=== PATIENT | male | born 1950 | race Caucasian/White ===

== ENCOUNTER 2017-03-16 05:52 | Day surgery (SDC) | payer MEDICARE, OTHER, SELFPAY ==
[2017-03-16] VITALS (8 sets, daily range): BP systolic 92–141; BP diastolic 38–55; PULSE 51–58; RESP 16–18; TEMP 36.6; O2SAT 97–99; BMI 28.5
--- NOTE | 2017-03-16 06:19 | PCM.HP.STD ---
Problem List (1) Family history of colon cancer Status: Acute (2) Personal history of colonic polyps Status: Acute History of Present Illness Date of Admission: 03/16/17 The patient is a 66 year old M who has a personal history of colon polyps and a family history of colon cancer. Most recent colonoscopy 2005. 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 Preserved ejection fraction. No complaints of chest pain. He is an avid runner. Past Medical History Allergies CARROTS Allergy (Unknown, Uncoded 02/07/17 10:40) Unknown Home Medications: Ambulatory Orders Medication Instructions Recorded Albuterol Inhaler [Ventolin Hfa] 2 puff INHALATION Q4H PRN PRN 09/24/13 Multivitamins,Therapeutic 1 tab PO DAILY 09/24/13 [Multivitamin] aspirin 325 mg tablet 325 mg PO QDAY 02/07/17 atorvastatin 80 mg tablet 40 mg PO QHS tab 02/07/17 cetirizine 10 mg tablet 5 mg PO QDAY PRN 02/07/17 Surgical History: - - replacement of aortiv valve Psychiatric History: No pertinent psych hx Smoking Status: Never smoker - *Family History Maternal History Items: Unknown Review of Systems Constitutional: Denies: Anorexia Eyes: Denies: Blurred vision HEENT: Denies: Difficulty Hearing Cardiovascular: Denies: Chest Pain Respiratory: Denies: Cough Gastrointestinal: Denies: Abdominal Pain Genitourinary: Denies: Dysuria Musculoskeletal: Denies: Arm Pain Psychiatric: Denies: Anxiety Endocrine: Denies: Change in Body Habitus Hematologic/ Lymphatic: Denies: Adenopathy VTE Information - Inpt Only VTE Present on Admission: No Patient Problems: Active and Suspected Problems (Last Updated 02/07/17 @ 10:35 by Shelly Carlson) Family history of colon cancer (Acute) Personal history of colonic polyps (Acute) - Physical Exam General: Alert, Oriented x3, Cooperative, No apparent distress HEENT: Atraumatic Oral: Moist Mucosa Neck: Supple Lungs: Clear to auscultation Cardiovascular: Regular rate, - - Systolic ejection murmur Abdomen: Bowel Sounds Present Extremities: No clubbing Skin: No rashes Musculoskeletal: No Tenderness to Palpation of Joints or Extremities Lymphatic: No Cervical, Supraclavicular, or Inguinal Adenopathy Neurological: Cranial nerves II-XII grossly intact Psych/Mental Status: Normal Affect Vital Signs Temp Pulse Resp BP Pulse Ox 97.8 F 53 L 18 141/55 H 99 03/16/17 06:07 03/16/17 06:07 03/16/17 06:07 03/16/17 06:07 03/16/17 06:07 Oxygen Delivery Method Room Air Weight: 166 lb 10.711 oz Body Mass Index (BMI) 28.5 Finger Stick Blood Glucose 136 Assessment/Plan Active and Suspected Problems (Last Updated 02/07/17 @ 10:35 by Shelly Carlson) Family history of colon cancer (Acute) Personal history of colonic polyps (Acute) Colonoscopy is planned. He is aware of the technique, benefits, risks, alternatives. He has had an opportunity to ask and have questions answered. We will provide ampicillin because of his cardiac valve. He is actually on every 5 year colonoscopy due to his risk history Ge Ag M.D., F.A.C.S.
--- NOTE | 2017-03-16 07:26 | OP.PCM_ITS ---
Problem List (1) Family history of colon cancer Status: Acute (2) Personal history of colonic polyps Status: Acute Report of Operation Date of Procedure: 03/16/17 Pre-Operative Diagnosis: Personal history of colon polyps. Family history of colon cancer Post-Operative Diagnosis: Extensive pancolonic diverticulosis Surgery/Procedure Performed:: Colonoscopy Description of Surgical Findings:: Timeout and informed consent was obtained. 66-year-old gentleman was taken to the endoscopy suite. Because of a prosthetic aortic valve I gave 2 g of ampicillin intravenously. He received 100 mg of Demerol and 2.5 mg of Versed is intravenous sedation. Digital rectal exam performed. Normal anal tone. Mild hemorrhoidal changes. 2+ smooth prostate. Flexible colonoscope inserted into the rectum advanced through the sigmoid colon transverse colon and was readily advanced to the ascending colon. With transabdominal pressure the scope was placed into the cecum. Bowel prep was very good. The cecum ileocecal valve was nicely achieved. The scope was carefully withdrawn from the ascending colon transverse colon descending colon and sigmoid colon. There was very extensive diverticulosis located throughout the entire colon. No additional mucosal lesions. The scope was retroflexed within the rectum. Very minimal hemorrhoidal changes noted. No active disease. Excess fluid and air was aspirated free the procedure was completed with the patient tolerating it well. Impression Pancolonic diverticulosis Recommendations for follow-up colonoscopy in 5 years based upon personal history : Polyps and family history of colon cancer Cc: Dr. KOFI Thorne Medications given at 0706. Scope inserted 0709. Cecum reached at 0713. Procedure completed at 0719. Ge Ag M.D., F.A.C.S. Type of Anesthesia:: IV Sedation
== END 2017-03-16 08:25 | disposition home or self-care (01) ==
LOC: EN 05:53 → AC 05:55
PROVIDERS: Family Provider Family Medicine; PCP Family Medicine; Visit Provider Surgery
PROC: 0DJD8ZZ Inspection of Lower Intestinal Tract, Via Natural or Artificial Opening Endoscopic (ICD-10-PCS; CPT 45378; principal; 2017-03-16 06:55)
DX: K57.30 Diverticulosis of large intestine without perforation or abscess without bleeding (principal); Z86.010 Personal history of colon polyps; Z80.0 Family history of malignant neoplasm of digestive organs; Z79.82 Long term (current) use of aspirin; Z95.2 Presence of prosthetic heart valve; R01.1 Cardiac murmur, unspecified
CPT/HCPCS: G0105; J7120

== ENCOUNTER → 2017-11-01 12:29 | Outpatient (CLI) | payer MEDICARE, OTHER, SELFPAY ==
--- NOTE | 2017-11-01 12:34 | RAD_ITS ---
STUDY: X-RAY CHEST REASON FOR EXAM: Male, 67 years old. Dyspnea with cough. TECHNIQUE: PA and lateral views of the chest. COMPARISON: None. FINDINGS: Hyperinflation. Mild increased markings at the lung bases suggestive of scarring. Decreased bronchovascular markings in the upper lobes suggestive of possible emphysematous changes. There is no demonstrated pleural abnormality. Sternal cerclage wires and vascular clips are present from a prior sternotomy and coronary artery bypass graft procedure (CABG). Normal mediastinum and isabelle. Normal visualized pulmonary arteries. There is atherosclerotic tortuosity of the aortic arch and descending thoracic aorta. There are degenerative changes of the visualized thoracic spine. Normal visualized ribs, clavicles, and shoulders. There is no demonstrated abnormality of the visualized soft tissue structures of the upper abdomen. RAD/Chest PA and Lateral IMPRESSION: Hyperinflation. Findings suggestive of emphysematous changes with probable scarring in the lower lobes. Electronically Signed: Donato Malave MD at 16:05 EDT Tel [phone], Service support ,
== END ==
PROVIDERS: Family Provider Family Medicine; PCP Family Medicine; Visit Provider Family Medicine
DX: R06.09 Other forms of dyspnea (principal)
CPT/HCPCS: 71046

== ENCOUNTER → 2017-11-12 13:48 | Outpatient (CLI) | payer MEDICARE, OTHER, SELFPAY ==
--- NOTE | 2017-11-12 13:51 | ECHOD_ITS ---
Reason For Study: Murmur Procedure This was a 2D Doppler, Color Flow transthoracic echocardiogram. Exam performed in department. Left Ventricle Normal LV size. Mild concentric left ventricular hypertrophy. Left ventricular systolic function is normal. The estimated ejection fraction is 60 %. Transmitral doppler flow suggestive of impaired relaxation of left ventricle. Transmitral diastolic flow velocities suggest mild (stage 1) diastolic dysfunction (reversed pattern). No regional wall motion abnormalities noted. Right Ventricle Normal RV size. Normal systolic function. Atria The left atrium is mildly enlarged. Normal right atrium. Mitral Valve Normal mitral valve. Mild (1+) eccentric mitral valve insufficiency. Tricuspid Valve Normal tricuspid valve. Mild (1+) tricuspid valve insufficiency. Pulmonary artery systolic pressure is 30 mmHg. Aortic Valve Peak aortic valve gradient 58 mmHg. Mean aortic valve gradient 31 mmHg. Mild-Moderate (1-2+) aortic valve insufficiency. Bioprosthetic aortic valve. Pulmonic Valve Normal pulmonic valve. Mild (1+) pulmonic valve insufficiency. Great Vessels Normal aortic root. The pulmonary artery is normal size. Normal inferior vena cava. Pericardium/Pleural No pericardial effusion. MMode/2D Measurements & Calculations LVIDd: 5.0 cm IVSd: 1.2 cm LVOT diam: 2.0 cm LVIDs: 3.1 cm LVPWd: 1.2 cm LVOT area: 3.0 cm2 RVDd: 2.8 cm FS: 37.0 % Ao root diam: 2.5 cm LAV(MOD-bp): 66.0 ml Aortic Valve Planimetry: 0.94 cm2 LA dimension: 4.2 cm LAV(MOD-bp) Indexed: 36.6 ml/m2 LAV(MOD-sp2): 65.1 ml LAV(MOD-sp4): 63.9 ml LA A4 area: 20.5 cm2 RA A4 area: 13.7 cm2 Time Measurements MV dec time: 0.26 sec Doppler Measurements & Calculations MV E max severiano: 58.2 cm/sec Lat Peak E' Severiano: 12.1 cm/sec Med Peak E' Severiano: 8.0 cm/sec MV A max severiano: 83.5 cm/sec E/E' lat: 4.8 E/E' med: 7.3 MV E/A: 0.70 MV V2 max: 86.4 cm/sec Ao V2 max: 379.8 cm/sec AI max severiano: 265.8 cm/sec MV max P.0 mmHg Ao max P.7 mmHg AI max P.4 mmHg MV V2 mean: 41.7 cm/sec Ao V2 mean: 263.2 cm/sec AI dec slope: 224.7 cm/sec2 MV mean P.86 mmHg Ao mean P.6 mmHg AI P1/2t: 346.5 msec MV V2 VTI: 26.3 cm Ao V2 VTI: 88.3 cm MVA(VTI): 3.3 cm2 LISBET(I,D): 0.97 cm2 LISBET(V,D): 0.86 cm2 LV V1 max: 108.7 cm/sec SV(LVOT): 85.7 ml PA V2 max: 118.7 cm/sec LV V1 max P.7 mmHg LV V1 mean P.5 mmHg LV V1 mean: 73.7 cm/sec LV V1 VTI: 28.5 cm TR max severiano: 254.0 cm/sec TR max P.8 mmHg Interpretation Summary Normal LV size. Mild concentric left ventricular hypertrophy. Left ventricular systolic function is normal. The estimated ejection fraction is 60 %. Transmitral diastolic flow velocities suggest mild (stage 1) diastolic dysfunction (reversed pattern). Bioprosthetic aortic valve. Mean aortic valve gradient 31 mmHg. Mild-Moderate (1-2+) aortic valve insufficiency. Compared to the previous the AV is mildly worse Ordering Physician: Sameer Guzman Referring Physician: Gianni Thorne Performed By: Viviane Munoz, SHAYNA, RVT
== END ==
PROVIDERS: Family Provider Family Medicine; PCP Family Medicine; Visit Provider Internal Medicine Cardiovascular Disease
DX: R06.02 Shortness of breath (principal); R01.1 Cardiac murmur, unspecified
CPT/HCPCS: 93306

== ENCOUNTER → 2017-11-14 06:09 | Outpatient (CLI) | payer MEDICARE, OTHER, SELFPAY ==
--- NOTE | 2017-11-14 08:47 | STRESSREP_ITS ---
Stress Test Report Exercise myocardial perfusion stress test. 67-year-old man with a history of coronary artery disease and aortic valve replacement. Stress protocol: Resting EKG demonstrates normal sinus rhythm with a rate of 59 bpm incomplete left bundle branch block is noted. Resting blood pressure is 120/60 mmHg. The patient exercised according to regular Amos protocol for a total duration of 10 minutes. The patient completed 1 minute into stage IV of the Amos protocol the maximum heart rate attained was 153 bpm which was 99% of maximum predicted heart rate the maximum workload was 11.7 metabolic equivalents. Patient maintained sinus rhythm throughout the recording at rest there were no ST or T-wave changes noted suggest ischemia peak exercise upsloping ST changes were noted would not be the criteria for ischemia. No clinical angina was noted the test was terminated due to shortness of breath. The resting blood pressure is 120/60 m eters of mercury with a peak blood pressure 140/60 mmHg. Myocardial perfusion protocol. 11.3 mCi of technetium 99m sestamibi was injected at rest. Patient exercised according to regular Amos protocol for 10 minutes attaining 99% of maximum predicted heart rate and a workload of 11.7 metabolic equivalents. At peak exercise 33.2 mCi of technetium 99m sestamibi was injected stress images were obtained stress and rest images were reconstructed and compared in the short axis vertical long and horizontal long axis. Gated images were also obtained pre- Perfusion SPECT analysis: Review of the stress images demonstrate normal uptake of tracer noted in all areas of the myocardium. The resting images similarly demonstrate normal uptake of tracer noted in all areas of myocardium. No areas of reversibility are noted suggest ischemia. Gated SPECT analysis: The gated SPECT analysis is 54%. Conclusion: Normal exercise myocardial perfusion stress test at a high workload. Excellent functional capacity. Preserved ejection fraction.
== END ==
PROVIDERS: Family Provider Family Medicine; PCP Family Medicine; Visit Provider Internal Medicine Cardiovascular Disease
DX: Z95.2 Presence of prosthetic heart valve (principal); Z95.1 Presence of aortocoronary bypass graft
CPT/HCPCS: 78452; 93017; A9500; A4216

== ENCOUNTER → 2017-11-27 09:23 | Outpatient (CLI) | payer MEDICARE, OTHER, SELFPAY ==
--- NOTE | 2017-11-27 10:35 | RAD_ITS ---
STUDY: X-RAY CHEST REASON FOR EXAM: Male, 67 years old. Preoperative evaluation. Chest tightness. TECHNIQUE: Frontal and lateral views of the chest. COMPARISON: November 01, 2017 FINDINGS: There is stable mild hyperexpansion. There is no demonstrated pleural abnormality. There is cardiomegaly unchanged. There are sternotomy wires unchanged. Normal mediastinum and isabelle. Normal visualized pulmonary arteries. There is atherosclerotic calcification of the aortic arch with tortuosity. There are diffuse degenerative changes of the visualized thoracic spine. Normal visualized ribs, clavicles, and shoulders. There is no demonstrated abnormality of the visualized soft tissue structures of the upper abdomen. RAD/Chest PA and Lateral IMPRESSION: Stable cardiomegaly with hyperexpansion. No new or acute pathology. Electronically Signed: Duane Brooks MD at 14:28 EDT , Service support ,
[2017-11-27 10:59] LABS: Absolute Lymphocyte Count 1.61 X10^3/ul (0.83-4.51); Absolute Neutrophil Count 3.7 X10^3/uL (2.0-7.7); Basophil# 0.04 X10^3/uL; Basophil% 0.7 % (0-1); Eosinophil# 0.25 X10^3/uL; Eosinophils% 4.1 % (0-5); Hematocrit 40.4 % (40-54); Hemoglobin 14.2 g/dl (13.0-16.5); Lymphocyte # 1.61 X10^3/ul (4.0); Lymphocyte % 26.2 % (19-41); Mean Corp Hgb Conc 35.1 g/gl (32-36); Mean Corpuscular Hgb 30.3 pg (27.0-32.0); Mean Corpuscular Volume 86.3 fL (80-94); Mean Platelet Vol. 10.6 fl (6.2-12.0); Monocyte# 0.58 X10^3/uL; Monocyte% 9.4 % (0-10); Neutrophil # 3.65 X10^3/uL (2.7-7.7); Neutrophil % 59.4 % (47-70); Platelet Count 194 K/mm3 (150-450); RBC Distribution Width CV 13.3 % (11.6-14.6); RBC Distribution Width SD 40.8 fl (35.1-43.9); Red Blood Count 4.68 M/mm3 (4.6-6.2); White Blood Count 6.1 K/mm3 (4.4-11.0)
[2017-11-27 11:00] LABS: POSITIVE COUNT NO; POSITIVE DIFFERENTIAL NO; POSITIVE MORPHOLOGY NO
[2017-11-27 11:29] LABS: AST(SGOT) 17 U/L (15-37); Alanine Aminotransfer ALT/SGPT 25 U/L (16-61); Albumin, Serum 3.4 g/dL (3.2-5.0); Alkaline Phosphatase 79 U/L (45-117); Anion Gap 6 (5-15); BUN 21 mg/dL (7-18); BUN/Creat Ratio 19.8 RATIO (10-20); Bilirubin, Direct 0.13 mg/dL (0.00-0.30); Calcium,Total 8.5 mg/dL (8.5-10.1); Chloride 105 mmol/L (98-107); Cholesterol 146 mg/dL (200); Creatinine, Serum 1.06 mg/dL (0.70-1.30); EST Glomerular Filtration Rate 74 mL/min (>60); Est Glom Filt Rate - Afr Amer 90 mL/min (>60); Globulin 3.1 g/dL (2.2-4.2); Glucose 80 mg/dL (74-106); High Density Lipoprotein 45 mg/dL; Potassium 4.1 mmol/L (3.5-5.1); Protein, Total 6.5 g/dL (6.4-8.2); Sodium Level 140 mmol/L (136-145); Triglycerides 127 mg/dL; Very Low Density Lipoprotein 25 mg/dL (5-40)
== END ==
PROVIDERS: Family Provider Family Medicine; PCP Family Medicine; Referring Provider Internal Medicine Cardiovascular Disease; Visit Provider Internal Medicine Cardiovascular Disease
DX: I25.119 Atherosclerotic heart disease of native coronary artery with unspecified angina pectoris (principal); I34.0 Nonrheumatic mitral (valve) insufficiency; I35.1 Nonrheumatic aortic (valve) insufficiency; I35.0 Nonrheumatic aortic (valve) stenosis; I48.0 Paroxysmal atrial fibrillation; E78.5 Hyperlipidemia, unspecified; R06.00 Dyspnea, unspecified; R07.9 Chest pain, unspecified; Z95.1 Presence of aortocoronary bypass graft; Z95.2 Presence of prosthetic heart valve; R09.89 Other specified symptoms and signs involving the circulatory and respiratory systems
CPT/HCPCS: 36415; 71046; 80048; 80061; 80076; 85025

== ENCOUNTER 2017-12-03 09:57 | Day surgery (SDC) | payer MEDICARE, OTHER, SELFPAY ==
[2017-11-30 10:34] VITALS: BMI 23.6
[2017-12-03] VITALS (24 sets, daily range): BP systolic 115–169; BP diastolic 36–116; PULSE 52–73; RESP 15–20; TEMP 36.8; O2SAT 96–100; BMI 23.6
--- NOTE | 2017-12-03 12:45 | EKG12_ITS ---
Test Reason : PCI Blood Pressure : / mmHG Vent. Rate : 064 BPM Atrial Rate : 064 BPM P-R Int : 198 ms QRS Dur : 106 ms QT Int : 468 ms P-R-T Axes : 065 092 052 degrees QTc Int : 482 ms Normal sinus rhythm Prolonged QT Abnormal ECG Confirmed by JONAS FREEMAN, FREDA ([id number]), science editor LULU CRAMER ([id number]) on 12/06/2017 12:01:22 PM Referred By: Sameer Guzman Confirmed By:FREDA MCDANIEL MD
[2017-12-03 12:50] LABS: ACT Activated Clotting Time 307 sec (74-137)
[2017-12-03] MEDS: 0.9% Normal Saline 1,000 ML 75 ML IV (13:20)
[2017-12-03] MEDS: Acetaminophen 325 MG Tablet 650 MG PO ×2 (14:35→21:48)
--- NOTE | 2017-12-03 16:06 | CRPHASE1_ITS ---
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 Phase I Charge:: Level I - Education Risk Factors/Lifestyle Smoking Status: Unknown if ever smoked Hx Dyslipidemia: Yes Height: 1.63 m Weight:: 62.596 kg BMI: 23.6 Family History: Family History (Last Reviewed 11/09/17 @ 13:23 by Sameer Guzman MD) Brother CAD (coronary artery disease) Brother CAD (coronary artery disease) Brother CAD (coronary artery disease) Brother CAD (coronary artery disease) Sister Hypertension CAD (coronary artery disease) Other Colon cancer Family History: Heart Disease Phase I Education Given On:: Pax, Nutrition, Antiplatelet medication, CHF Issues Affecting Care:: None Knowledge of Condition:: Yes Learning Preferences: Verbal, Written, Audio/Visual, Demonstration Medical/Surgical History Angina:: Yes CAD:: Yes Valve Disease/Replacement:: Yes Arrhythmias:: Yes CABG: Yes PTCA:: Yes Discharge/Home/Social Eval Marital Status:
--- NOTE | 2017-12-03 16:22 | CRPH1.INSTRU ---
General Education CAD and cardiac anatomy and function:: Patient communicates acknowledgment, Needs reinforcement Explanation of diagnoses and procedures:: Patient communicates acknowledgment, Needs reinforcement Sign/Symptoms of IL:: Patient communicates acknowledgment, Needs reinforcement Antiplatelet therapy: Patient communicates acknowledgment, Needs reinforcement Proper use of NTG-SL: Patient communicates acknowledgment, Needs reinforcement Emergency procedures and activation of EMS: Patient communicates acknowledgment, Needs reinforcement Compliance of all prescribed medications: Patient communicates acknowledgment, Needs reinforcement Smoking Patient Nicotine/Smoking Risk Factors Are:: Non-smoker Recommendations Include:: Second-hand smoke recommendation Nicotine/Smoking Response Code:: Patient communicates acknowledgment, Needs reinforcement Dyslipidemia Patient Dyslipidemia Risk Factors Are:: Total Cholesterol, Triglycerides, HDL, LDL Recommendations Include:: Lipid profile provided Dyslipidemia Response Code:: Patient communicates acknowledgment, Needs reinforcement Overweight/Obesity Patient Overweight/Obesity Risk Factors Are:: Overweight = 26-29 Recommendations Include:: Weight loss of 5-10%, Reduced calorie diet, Exercise 5-7 times/week Overweight/Obesity:: Patient communicates acknowledgment, Needs reinforcement Hypertension Recommendations Include:: Maintain BP <130/85 Hypertension:: Patient communicates acknowledgment, Needs reinforcement Heart Disease Patient Heart Disease Risk Factors Are:: Family history of heart disease < 65 years old, Previous cardiac event Recommendations Include:: Educated family members of their risk, Educated family members of importance of prevention of heart disease Heart Disease Response Code:: Patient communicates acknowledgment, Needs reinforcement Diabetes Patient Diabetes Risk Factors Are:: No documented hx of diabetes Diabetes:: Not instructed Metabolic Syndrome Metabolic Syndrome Response Code:: Not instructed Sedentary Recommendations Include:: Aerobic exercise 5-7 times/week for 20-30 minutes continuously, Benefits of regular exercise, Discussed home walking program, Monitored Outpatient Cardiac Rehab Sedentary Response Code:: Patient communicates acknowledgment, Needs reinforcement Stress Patient Stress Risk Factors Are:: Patient denies stress as a risk factor Recommendations Include:: Identification of stressors, and assessment of coping skills, Stress management techniques Stress Response Code:: Patient communicates acknowledgment, Needs reinforcement
--- NOTE | 2017-12-03 20:01 | CL.D_ITS ---
Patient Name: CHLOE WILCOX Study Date: 12/03/2017 Performing: Sameer Guzman MD Ht: 64 inches 163 cm : 1950 Wt: 139.1 lbs 63 kg Age: 67 Gender: male BSA: 1.68 PROCEDURE(S) PERFORMED [id number]/COR/CABG [id number] AND/OR PTCA, SINGLE GRAFT [id number] ROOT ANGIO WITH HEART CATH CLINICAL PROFILE AND INDICATIONS Indications: Valvular Disease Heart Failure: Newly Diagnosed: Yes Stress/Imaging Stress Test w/SPECT MPI: Yes Result: NegativeStress Test with SPECT MPI: Negative Angina Classification Anginal Classification w/in 2 Weeks: CCS II CAD Presentations: Other: New onset dyspnea; Angina equivalent No Sxs, no angina. CONCLUSIONS Severe ruby vessel disease, saphenous vein graft to the left anterior descending artery which is pa tent, saphenous vein graft to right coronary artery which is patent, saphenous vein graft to left cir cumflex artery with anastomotic lesion of 75%. RECOMMENDATIONS Referred for immediate PCI Surgery consult for Valve Replacement surgery DESCRIPTION OF PROCEDURE The patient arrived to the procedure lab. The risks and benefits of the procedure as well as a full d escription of our services here and current unavailability of surgical backup were fully explained to the patient and/or their significant other prior to the catheterization. The Timeout was completed, verifying the correct patient and procedure. The patient's procedural site was prepped and draped in the usual fashion. Local anesthetic was given subcutaneously to right radial region with Lidocaine 2% . Local anesthetic was given subcutaneously to right groin region with Lidocaine 2%. Using a modified Seldinger technique, arterial access was obtained via the right radial artery, a 6Fr sheath was inse rted., arterial access was obtained via the right femoral artery, a 5Fr sheath was inserted. Left Co ronary Artery selective angiography was performed in multiple views using a 5 Fr. JL4 catheter. Saphe nous Vein graft to the LAD and om selective angiography was performed in multiple views using a 5 Fr. JL 5 catheter. Saphenous Vein graft to the PDA selective angiography was performed in multiple views using a 5 Fr. JL 5 catheter. Ascending (root) aorta selective angiography was then performed in sing le view. Ascending (root) aorta selective angiography was then performed in single view.Contrast was injected through the sheath and the Right Iliac and Femoral artery were assessed for possible closure device.The arterial sheath was pulled and a TR Band was applied for hemostasis. The arterial sheath was pulled and a Perclose closure device was deployed for hemostasis CORONARY ANGIOGRAPHY DOMINANCE: Right Dominant LEFT HEART ASSESSMENT LEFT MAIN: Mild calcification, 50 % Stenosis LEFT ANTERIOR DECENDING ARTERY: PROX LAD: is occluded CIRCUMFLEX ARTERY: OSTIAL CIRC: 80 % Stenosis MID CIRC: long 80 pct OM 1: Ostial - 60 % Stenosis OM 2: Ostial - 60 % Stenosis RIGHT CORONARY ARTERY: presumed occluded GRAFTS: Saphenous Vein graft to the Mid LAD is patent Saphenous Vein graft to the 2nd OM has a proximal anastomotic lesion of 75 % Saphenous Vein graft to the RPDA is patent VALVE FINDINGS: Aortic Valve Insufficiency: Grade 3 AORTIC ROOT: 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 Patient given 10cc IA of this solution. 12/03/2017 11:14 :14 Nipride 50 mcg IV 12/03/2017 11:02:38 Nipride 50 mcg IV 12/03/2017 11:02:38 Nitro 100 mcg IC 12/03/2017 12:23:44 Nipride 100 mcg IV 12/03/2017 12:23:56 Verapamil 2.5mg, Ntg 100mcgs, 2000 units of Heparin diluted in 23cc Heparinized saline. Patient give n 10cc IA of this solution. 12/03/2017 11:14:14 SUMMARY OF HEMODYNAMIC DATA Time AIR REST ECG 10:21:35 AO 114/51 (76) SA 11:16:08 Signed By Sameer Guzman MD On 12/03/2017 20:00:55 Sameer Guzman MD
[2017-12-03] MEDS: Atorvastatin Calcium 40 MG Tablet PO (21:48)
[2017-12-03] MEDS: TICAGRELOR 90 MG TABLET PO (21:48)
[2017-12-04] VITALS (12 sets, daily range): BP systolic 114–150; BP diastolic 38–51; PULSE 53–72; RESP 13–22; TEMP 36.7–37.1; O2SAT 94–98
[2017-12-04] MEDS: TICAGRELOR 90 MG TABLET PO (08:26)
--- NOTE | 2017-12-04 08:28 | PCM.PN.CARD ---
Subjectve: Patient seen and evaluated. Doing well with no complaints Objective: Vital Signs Temp Pulse Resp BP Pulse Ox 98.1 F 60 17 148/39 H 96 12/04/17 00:00 12/04/17 07:00 12/04/17 07:00 12/04/17 07:00 12/04/17 07:00 Oxygen Delivery Method Room Air Weight: 167 lb 1.766 oz Body Mass Index (BMI) 23.6 Finger Stick Blood Glucose 136 Intake and Output for Last 24 Hours 12/02/17 12/03/17 12/04/17 23:59 23:59 23:59 Intake Total 880 / 880 240 / 240 Balance 880 / 880 240 / 240 General: Awake, Alert, Oriented x 3 HEENT: PERRL, EOMI, Sclera Non Icteric Neck: Supple, Good ROM, No Lymph Node Enlargement Lungs: Clear to auscultation Cardiovascular: Regular Rhythm, Normal S1, Normal S2, No Murmurs, No Rubs, No Gallops Vascular: No Carotid Bruits, Normal Femoral Pulses, Normal Radial Pulses, Normal Dorsalis Pedal Pulse, Normal Posterior Tibial Pulses Abdomen: Bowel Sounds Present, Soft, Non Tender, No HSM, No Organomegaly Extremities: No Cyanosis, No Clubbing, No edema Neurological: No Focal Motor or Sensory Deficit Rhythm: EKG: ECHO: Stress Test: Cardiac Cath: PCI: CT Surgery: Holter monitor: EPS: PPM: CXR: Chest CT Scan: Medical Necessity - Tobacco Use Smoking Status: Unknown if ever smoked Assessment/Plan 1. Coronary artery disease. The patient underwent cardiac catheterization yesterday which demonstrated severe [place] vessel disease, the saphenous vein graft to the right coronary artery was patent, there is saphenous vein graft to the left anterior descending artery was patent, the saphenous vein graft to the obtuse marginal branch had a 75% stenosis noted variant. The patient underwent angioplasty and stenting of the above with a drug-eluting stent. The patient will be continued on aspirin 81 mg a day Continue Brilinta 90 mg twice a day. Continue other medications. Patient will be discharged for outpatient follow-up. 2. Valvular heart disease Patient underwent an aortogram which demonstrated 3+ aortic regurgitation. Recommend a transvaginal echocardiogram to further characterize the above. If is noted to be severe the patient would need to undergo a valve in valve procedure. 3. Hypertension Continue antihypertensive medications. Thank you for allowing me to participate in the care of your patient. Please don't hesitate to call if any issues arise
--- NOTE | 2017-12-04 08:31 | PN.CARD_ITS ---
Subjectve: Patient seen and evaluated. Doing well with no complaints Objective: Vital Signs Temp Pulse Resp BP Pulse Ox 98.1 F 60 17 148/39 H 96 12/04/17 00:00 12/04/17 07:00 12/04/17 07:00 12/04/17 07:00 12/04/17 07:00 Oxygen Delivery Method Room Air Weight: 167 lb 1.766 oz Body Mass Index (BMI) 23.6 Finger Stick Blood Glucose 136 Intake and Output for Last 24 Hours 12/02/17 12/03/17 12/04/17 23:59 23:59 23:59 Intake Total 880 / 880 240 / 240 Balance 880 / 880 240 / 240 General: Awake, Alert, Oriented x 3 HEENT: PERRL, EOMI, Sclera Non Icteric Neck: Supple, Good ROM, No Lymph Node Enlargement Lungs: Clear to auscultation Cardiovascular: Regular Rhythm, Normal S1, Normal S2, No Murmurs, No Rubs, No Gallops Vascular: No Carotid Bruits, Normal Femoral Pulses, Normal Radial Pulses, Normal Dorsalis Pedal Pulse, Normal Posterior Tibial Pulses Abdomen: Bowel Sounds Present, Soft, Non Tender, No HSM, No Organomegaly Extremities: No Cyanosis, No Clubbing, No edema Neurological: No Focal Motor or Sensory Deficit Rhythm: EKG: ECHO: Stress Test: Cardiac Cath: PCI: CT Surgery: Holter monitor: EPS: PPM: CXR: Chest CT Scan: Medical Necessity - Tobacco Use Smoking Status: Unknown if ever smoked Assessment/Plan 1. Coronary artery disease. The patient underwent cardiac catheterization yesterday which demonstrated s evere umkumi[place] vessel disease, the saphenous vein graft to the right coronary artery was patent, there is saphenous vein graft to the left anterior descending artery was patent, the saphenous vein graft to the obtuse marginal branch had a 75% stenosis noted variant. The patient underwent angioplasty and stenting of the above with a drug-eluting stent. The patient will be continued on aspirin 81 mg a day Continue Brilinta 90 mg twice a day. Continue other medications. Patient will be discharged for outpatient follow-up. 2. Valvular heart disease * Patient underwent an aortogram which demonstrated 3+ aortic regurgitation. * Recommend a transvaginal echocardiogram to further characterize the above. If is noted to be severe the patient would need to undergo a valve in valve procedure. 3. Hypertension * Continue antihypertensive medications. * * Thank you for allowing me to participate in the care of your patient. Please don't hesitate to call if any issues arise
--- NOTE | 2017-12-04 08:33 | PCM.DC.CCA ---
Discharge Diet: Low fat/ Low Cholesterol Discharge Activity: Return to Normal Activity Call your doctor if your incision/area has: Increased Pain/ Swelling, Increased Redness, Foul Smelling Discharge, Swelling at the incision site Call your doctor if you observe: Fever of 101 or Higher Additional Dressing/Incision Instructions:: Keep the dressing (bandage) on until the next morning. You may then shower, but do not take a tub bath for 5 days after your test. It is normal to have some tenderness and discomfort at the puncture site. Sometimes bruising also occurs. However, if pain, numbness, or coldness occurs below the puncture site (in your leg, toes, arms or fingers) call your doctor at once. You may have a small, marble sized knot at the puncture site. This is normal. Do not rub it. It will go away in 4-6 weeks. Bleeding can occur from the area where the puncture was done. Blood may spurt or drip from the site. If blood spurts, apply pressure right away to stop bleeding and call 911. Although rare, bleeding into the tissue (hematoma) can also occur. If this happens, a large, firm area goose egg under the skin will appear. If any of these occur, lie down as flat as you can and have someone apply firm pressure to the cath site with a gauze pad or a clean washcloth for 10-15 minutes. Call 911 or go to the Emergency Department. Allergies/Adverse Reactions: Allergies No Known Allergies Allergy (Unverified 11/09/17 12:45) Medications to take at Discharge Albuterol Inhaler [Ventolin Hfa] 2 puff INHALATION Q4H PRN PRN 09/24/13 Multivitamins,Therapeutic [Multivitamin] 1 tab PO DAILY 09/24/13 cetirizine 10 mg tablet 5 mg PO QDAY PRN 02/07/17 nitroglycerin 0.4 mg sublingual tablet 0.4 mg SUBLINGUAL Q5-15M PRN #25 tab 09/24/17 atorvastatin 40 mg tablet 40 mg PO DAILY 11/09/17 Aspirin E.C. [Ecotrin] 81 mg PO DAILY@0800 #120 tablet 12/04/17 Ticagrelor [Brilinta] 90 mg PO BID #60 tablet 12/04/17 The following prescriptions were given: Aspirin E.C. [Ecotrin] 81 mg PO DAILY@0800 #120 tablet Ticagrelor [Brilinta] 90 mg PO BID #60 tablet Primary Care Physician: Gianni Thorne MD [Primary Care Provider] - Test Results: Test results from this visit will be discussed in further detail at your follow-up appointment, if applicable. Cardiac Rehabilitation Info Cardiac Rehabilitation Program Information: Cardiac Rehabilitation is important for patients like you who are recovering from a heart problem. Cardiac rehabilitation programs are recognized as integral to the continued care of the patient with coronary heart disease. The cardiac rehabilitation program is designed to optimize a patient's physical, psychological, and social functioning. Health healthcare facility administrator work in cardiac rehabilitation programs and assist you with getting the treatments you need to get stronger and healthier - like exercise, healthy eating habits, and medications. Cardiac rehabilitation has been show to help people with heart problems live longer and have better life enjoyment than people who do not go to cardiac rehabilitation. Please contact the Cardiac Rehabilitation Program at [facility] at in two weeks if you have not heard from them.
--- NOTE | 2017-12-04 08:36 | DCINST_ITS ---
Discharge Diet: Low fat/ Low Cholesterol Discharge Activity: Return to Normal Activity Call your doctor if your incision/area has: Increased Pain/ Swelling, Increased Redness, Foul Smelling Discharge, Swelling at the incision site Call your doctor if you observe: Fever of 101 or Higher Additional Dressing/Incision Instructions:: Keep the dressing (bandage) on until the next morning. You may then shower, but do not take a tub bath for 5 days after your test. It is normal to have some tenderness and discomfort at the puncture site. Sometimes bruising also occurs. However, if pain, numbness, or coldness occurs below the puncture site (in your leg, toes, arms or fingers) call your doctor at once. You may have a small, marble sized knot at the puncture site. This is normal. Do not rub it. It will go away in 4-6 weeks. Bleeding can occur from the area where the puncture was done. Blood may spurt or drip from the site. If blood spurts, apply pressure right away to stop bleeding and call 911. Although rare, bleeding into the tissue (hematoma) can also occur. If this happens, a large, firm area goose egg under the skin will appear. If any of these occur, lie down as flat as you can and have someone apply firm pressure to the cath site with a gauze pad or a clean washcloth for 10-15 minutes. Call 911 or go to the Emergency Department. Allergies/Adverse Reactions: Allergies No Known Allergies Allergy (Unverified 11/09/17 12:45) Medications to take at Discharge Albuterol Inhaler [Ventolin Hfa] 2 puff INHALATION Q4H PRN PRN 09/24/13 Multivitamins,Therapeutic [Multivitamin] 1 tab PO DAILY 09/24/13 cetirizine 10 mg tablet 5 mg PO QDAY PRN 02/07/17 nitroglycerin 0.4 mg sublingual tablet 0.4 mg SUBLINGUAL Q5-15M PRN #25 tab 09/24/17 atorvastatin 40 mg tablet 40 mg PO DAILY 11/09/17 Aspirin E.C. [Ecotrin] 81 mg PO DAILY@0800 #120 tablet 12/04/17 Ticagrelor [Brilinta] 90 mg PO BID #60 tablet 12/04/17 The following prescriptions were given: Aspirin E.C. [Ecotrin] 81 mg PO DAILY@0800 #120 tablet Ticagrelor [Brilinta] 90 mg PO BID #60 tablet Primary Care Physician: Gianni Thorne MD [Primary Care Provider] - Test Results: Test results from this visit will be discussed in further detail at your follow- up appointment, if applicable. Cardiac Rehabilitation Info Cardiac Rehabilitation Program Information: Cardiac Rehabilitation is important for patients like you who are recovering from a heart problem. Cardiac rehabilitation programs are recognized as integral to the continued care of the patient with coronary heart disease. The cardiac rehabilitation program is designed to optimize a patient's physical, psychological, and social functioning. Health furnace caretaker work in cardiac rehabilitation programs and assist you with getting the treatments you need to get stronger and healthier - like exercise, healthy eating habits, and medications. Cardiac rehabilitation has been show to help people with heart problems live longer and have better life enjoyment than people who do not go to cardiac rehabilitation. Please contact the Cardiac Rehabilitation Program at [facility] at in two weeks if you have not heard from them.
[2017-12-04] MEDS: Aspirin E.C. 81 MG Tablet PO (09:00)
--- NOTE | 2017-12-04 10:00 | EKG12_ITS ---
Test Reason : AM Blood Pressure : / mmHG Vent. Rate : 057 BPM Atrial Rate : 057 BPM P-R Int : 190 ms QRS Dur : 104 ms QT Int : 488 ms P-R-T Axes : 037 015 082 degrees QTc Int : 474 ms Sinus bradycardia Otherwise normal ECG When compared with ECG of 24-SEP-2013 22:11, No significant change was found Confirmed by LATASHA FREEMAN, SAMEER ([id number]), primer expeditor and drier BALBINA WILSON ([id number]) on 12/10/2017 11:03:13 AM Referred By: Sameer Guzman Confirmed By:SAMEER GUZMAN MD
--- NOTE | 2017-12-04 10:14 | CASEMGMT ---
Addendum entered by Charles De Luna 12/04/17 10:25: Correction: Home on Brilinta. Original Note: MARCY GODINEZ INITIAL REVIEW ASSESSMENT D/C PLAN: Home on Plavix Face to Face with patient for initial transition planning/care coordination assessment. MARCY GODINEZ introduced self and role at [facility]. Care providers, pharmacy, and demographics verified. PCP: Dr Gianni Thorne Preferred Pharmacy: [facility] Insurance: [facility] Prescription Benefit: [employer] Living Will/HPOA: HPOA is , Mandie DME: Denies using any DME and denies needs. Pt's plans on D/C: Wishes to return home. States is independent. Denies needs CM to follow for any further discharge planning needs that may arise. Hilary KENNEDY RN, CM
--- NOTE | 2017-12-04 11:48 | CASEMGMT ---
Addendum entered by Charles De Luna 12/04/17 15:09: Dr Guzman made aware of [id number] cost for pt for the Brilinta after the initial free 30-day supply and that pt plans to discuss alternative medication with him at his follow-up appt. Dr Guzman states his plan is to switch pt to Plavix at that time. Original Note: MARCY GODINEZ NOTE: Pt to be discharged home on Brilinta. Rx sent to pt's pharmacy [facility]. They stated they do not have any Brilinta in stock. Pt and agreeable to [facility] retail pharmacy and Rx for Brilinta transferred to [facility] Retail pharmacy. Brilinta 30-day savings card sent to [facility] Retail pharmacy. Per [facility] retail pharmacy: *1st 30 days of Brilinta will be free. Thereafter, pt's [id number] cost will be $290.17/month until deductible is met and then pt's cost per month will be $47/month. *Pt made aware and agreeable to getting the 1st 30-day prescription filled. [facility] retail pharmacy made aware and will deliver medication to pt's room. *Pt states he plans to talk to Dr Guzman at his follow-up appt for alternative medication as previously discussed with Dr Guzman. Hilary KENNEDY RN, CM
--- NOTE | 2017-12-04 22:11 | CL.I_ITS ---
Patient Name: CHLOE WILCOX Study Date: 12/03/2017 Performing: Mk Delcid MD Ht: 64 inches 163 cm : 1950 Wt: 139.1 lbs 63 kg Age: 67 Gender: male BSA: 1.68 PROCEDURE(S) PERFORMED [id number] AND/OR PTCA, SINGLE GRAFT DC11-AO ROOT ANGIO WITH HEART CATH CLINICAL PROFILE AND CO-MORBIDITIES Indications: Valvular Disease Heart Failure: Newly Diagnosed: Yes Stress/Imaging Stress Test w/SPECT MPI: Yes Result: Negative Stress Test with SPECT MPI: Negative Angina Classification Anginal Classification w/in 2 Weeks: CCS II CAD Presentations: Other: New onset dyspnea; Angina equivalent No Sxs, no angina. CONCLUSIONS Successful MELVIN SVG to OM using Synergy 3.0x12 mm RECOMMENDATIONS ASA Indefinitley Brilinta for at least 12 months Follow up with Dr. Guzman INTERVENTION INFORMATION LESION SITE: Saphaenous Vein Graft to the OM lesion location in the mid graft segment Lesion Complexity: Non-High/Non-C Pre Stenosis: 80 % Pre intervention OSCAR flow: 3 Post Stenosis: 0 % Post intervention OSCAR flow: 3 Lesion Devices: Terumo .014 Runthrough Extra Floppy 180cm straight Cordis 6 Fr JR4 100cm Guide Catheter Andrea Sci Large Vessel 3.5-5.5 Filter Wire 190cm Andrea Sci Synergy MR MELVIN 3.00x12 COMPLICATIONS No Complications PROCEDURE MEDICATIONS Fentanyl 50 mcg IV Versed 1 mg IV Oxygen: 2 L/min via nasal cannula Brilinta 180 mg PO 12/03/2017 11:51:05 Angiomax 9.8 ml's bolus 12/03/2017 12:10:52 Angiomax 22.1 ml's hr infusing 12/03/2017 12:11:23 Adenosine 50 mcg IC 12/03/2017 12:17:05 Adenosine 40 mcg IC @ 12/03/2017 12:19:05 Heparin diluted in 23cc Heparinized saline. Patient given 10cc IA of this solution. 12/03/2017 11:14 :14 Nipride 50 mcg IV 12/03/2017 11:02:38 Nipride 50 mcg IV 12/03/2017 11:02:38 Nitro 100 mcg IC 12/03/2017 12:23:44 Nipride 100 mcg IV 12/03/2017 12:23:56 Verapamil 2.5mg, Ntg 100mcgs, 2000 units of Heparin diluted in 23cc Heparinized saline. Patient give n 10cc IA of this solution. 12/03/2017 11:14:14 SUMMARY OF HEMODYNAMIC DATA Time AIR REST ECG 10:21:35 AO 114/51 (76) SA 11:16:08 Signed By Mk Delcid MD On 12/04/2017 14:45:01 Mk Delcid MD
== END 2017-12-04 12:30 | disposition home or self-care (01) ==
LOC: CLSP 09:58 → ICU 12:54
PROVIDERS: Family Provider Family Medicine; PCP Family Medicine; Referring Provider Internal Medicine Cardiovascular Disease; Visit Provider Internal Medicine Cardiovascular Disease
DX: I25.119 Atherosclerotic heart disease of native coronary artery with unspecified angina pectoris (principal); I35.0 Nonrheumatic aortic (valve) stenosis; I35.1 Nonrheumatic aortic (valve) insufficiency; I34.0 Nonrheumatic mitral (valve) insufficiency; I10 Essential (primary) hypertension; I48.0 Paroxysmal atrial fibrillation; E78.5 Hyperlipidemia, unspecified; R06.02 Shortness of breath; M19.90 Unspecified osteoarthritis, unspecified site; Z95.1 Presence of aortocoronary bypass graft; Z95.2 Presence of prosthetic heart valve; Z95.5 Presence of coronary angioplasty implant and graft; Z77.22 Contact with and (suspected) exposure to environmental tobacco smoke (acute) (chronic); Z79.82 Long term (current) use of aspirin; Z79.899 Other long term (current) drug therapy; Z86.73 Personal history of transient ischemic attack (TIA), and cerebral infarction without residual deficits
CPT/HCPCS: 85347; 92937; 93005; 93455; 93567; 99152; 99153; J7030; J7040; J7050; Q9967; C1769; C1874; C1884; C1887; C1894; C9604; J0153; J0583

== ENCOUNTER → 2017-12-24 12:06 | Outpatient (CLI) | payer MEDICARE, OTHER, SELFPAY ==
[2017-12-03 16:22] VITALS: BMI 23.6
--- NOTE | 2017-12-24 12:08 | ECHOTEE_ITS ---
Reason For Study: Assess AVR, AI Medication JORGE probe passed without difficulty. No complications were noted. Topex Topical [place] given X4 metered doses orally. Versed 2 mg given slow IVP. Fentanyl 50 mcg given slow IVP. Performed a rapid injection of agitated mix of 9 cc saline and 1cc air to assess for atrial septal defect. Left Ventricle Normal LV size. Left ventricular systolic function is normal. The estimated ejection fraction is 60 %. No regional wall motion abnormalities noted. Right Ventricle Normal RV size. Normal systolic function. The right ventricular wall motion is normal. Atria Bubble contrast study negative for right to left interatrial shunt. The left atrium is moderately enlarged. Normal right atrium. Mitral Valve Bileaflet diffuse mitral valve thickening. Tricuspid Valve Normal tricuspid valve. Aortic Valve Trisinus/trileaflet aortic valve. Moderately severe (3+) eccentric aortic valve insufficiency. Pulmonic Valve Normal pulmonic valve. Vessels Mildly dilated aortic root. Mild atherosclerosis of the aortic arch. The pulmonary artery is normal size. Pericardium No pericardial effusion. Interpretation Summary Normal LV size. Left ventricular systolic function is normal. The estimated ejection fraction is 60 %. Mildly dilated aortic root. Moderately severe (3+) eccentric aortic valve insufficiency. Ordering Physician: Sameer Guzman Referring Physician: Sameer Guzman Performed By: Myrna Sotelo, SHAYNA
== END ==
PROVIDERS: Family Provider Family Medicine; PCP Family Medicine; Referring Provider Internal Medicine Cardiovascular Disease; Visit Provider Internal Medicine Cardiovascular Disease
DX: I25.119 Atherosclerotic heart disease of native coronary artery with unspecified angina pectoris (principal); I34.0 Nonrheumatic mitral (valve) insufficiency; I48.0 Paroxysmal atrial fibrillation; I35.0 Nonrheumatic aortic (valve) stenosis; E78.5 Hyperlipidemia, unspecified; R06.00 Dyspnea, unspecified; Z95.1 Presence of aortocoronary bypass graft; Z95.2 Presence of prosthetic heart valve; Z95.5 Presence of coronary angioplasty implant and graft
CPT/HCPCS: 93312; 93320; 93325; J7040; A4216

== ENCOUNTER → 2018-04-25 18:56 | Outpatient (CLI) | payer MEDICARE, OTHER, SELFPAY ==
[2017-12-03 16:22] VITALS: BMI 23.6
== END ==
PROVIDERS: Family Provider Family Medicine; PCP Family Medicine; Referring Provider Urology; Visit Provider Urology
DX: N39.0 Urinary tract infection, site not specified (principal)
CPT/HCPCS: 87086

== ENCOUNTER → 2018-10-09 07:00 | Outpatient (CLI) | payer MEDICARE, OTHER, SELFPAY ==
[2017-12-03 16:22] VITALS: BMI 23.6
[2018-06-28 10:09] VITALS: BMI 29.2
[2018-10-09 07:49] LABS: AST(SGOT) 23 U/L (15-37); Alanine Aminotransfer ALT/SGPT 40 U/L (16-61); Albumin, Serum 3.7 g/dL (3.2-5.0); Alkaline Phosphatase 108 U/L (45-117); Bilirubin, Direct 0.23 mg/dL (0.00-0.30); Cholesterol 148 mg/dL (200); Globulin 3.3 g/dL (2.2-4.2); High Density Lipoprotein 51 mg/dL; Triglycerides 126 mg/dL; Very Low Density Lipoprotein 25 mg/dL (5-40)
[2018-10-09 07:55] LABS: PSA,Total - Annual Screen 3.17 ng/mL (0.00-4.00)
== END ==
PROVIDERS: Family Provider Family Medicine; PCP Family Medicine; Referring Provider Internal Medicine Cardiovascular Disease; Visit Provider Internal Medicine Cardiovascular Disease
DX: Z12.5 Encounter for screening for malignant neoplasm of prostate (principal); E78.5 Hyperlipidemia, unspecified
CPT/HCPCS: 36415; 80061; 80076; 84153; G0103

== ENCOUNTER → 2018-12-06 16:59 | Outpatient (CLI) | payer MEDICARE, OTHER, SELFPAY ==
[2017-12-03 16:22] VITALS: BMI 23.6
[2018-06-28 10:09] VITALS: BMI 29.2
--- NOTE | 2018-12-06 17:07 | RAD_ITS ---
HISTORY: COUGH AND SOB. HX OF OPEN HEART BYPASS AND A VALVE REPLACED PER PATIENT. EXAM: XR Chest 2 Views: COMPARISON: November 27, 2017 FINDINGS: # of images incl. paperwork: 2 Sternal wires and mediastinal clips. Lungs are clear. Heart is not enlarged. Scoliosis is similar. Prosthetic aortic valve mesh is new likely has been endovascularly placed.. Pulmonary vascularity is distinct. No effusions. RAD/Chest PA and Lateral IMPRESSION: Postop changes likely from CABG. Likely endovascularly placed aortic valve repair.. at 1052 Reported and signed by: Edmar White MD Electronically Signed: Edmar White MD at 5:27 EDT Tel , Service support ,
== END ==
PROVIDERS: Family Provider Family Medicine; PCP Family Medicine; Referring Provider Family Medicine; Visit Provider Family Medicine
DX: J40 Bronchitis, not specified as acute or chronic (principal)
CPT/HCPCS: 71046

== ENCOUNTER → 2018-12-18 06:41 | Outpatient (CLI) | payer MEDICARE, OTHER, SELFPAY ==
[2017-12-03 16:22] VITALS: BMI 23.6
[2018-06-28 10:09] VITALS: BMI 29.2
[2018-12-18 09:10] LABS: BNP,B-Type NATRIURETIC PEPTIDE 18.3 pg/mL (0-100)
== END ==
PROVIDERS: Family Provider Family Medicine; PCP Family Medicine; Referring Provider Internal Medicine Cardiovascular Disease; Visit Provider Internal Medicine Cardiovascular Disease
DX: I25.810 Atherosclerosis of coronary artery bypass graft(s) without angina pectoris (principal); I35.0 Nonrheumatic aortic (valve) stenosis; I35.1 Nonrheumatic aortic (valve) insufficiency; I48.0 Paroxysmal atrial fibrillation; E78.5 Hyperlipidemia, unspecified; R06.00 Dyspnea, unspecified; Z95.1 Presence of aortocoronary bypass graft; Z95.2 Presence of prosthetic heart valve; Z95.5 Presence of coronary angioplasty implant and graft
CPT/HCPCS: 36415; 83880

== ENCOUNTER → 2018-12-19 11:56 | Outpatient (CLI) | payer MEDICARE, OTHER, SELFPAY ==
[2017-12-03 16:22] VITALS: BMI 23.6
[2018-06-28 10:09] VITALS: BMI 29.2
[2018-12-19 14:16] LABS: D-Dimer Quantitative (DVT/PE) 0.54 FEU/ug/m (0.27-0.49)
== END ==
PROVIDERS: Family Provider Family Medicine; PCP Family Medicine; Visit Provider Family Medicine
DX: R06.00 Dyspnea, unspecified (principal)
CPT/HCPCS: 36415; 85379

== ENCOUNTER → 2018-12-19 16:59 | Outpatient (CLI) | payer MEDICARE, OTHER, SELFPAY ==
[2017-12-03 16:22] VITALS: BMI 23.6
[2018-06-28 10:09] VITALS: BMI 29.2
--- NOTE | 2018-12-19 17:02 | CT_ITS ---
STUDY: CTA CHEST REASON FOR EXAM: Male, 68 years old. Chest pressure RADIATION DOSAGE (If Supplied By Facility): CTDIvol = ( 11.9 ) mGy, DLP = ( 373.49 ) mGycm TECHNIQUE: The examination was performed with the intravenous administration of IV 100mL Isovue-370 100. Post-processing of the angiographic images was performed, with multiplanar reformation and 3D reconstruction. Individualized dose optimization techniques were used for this CT. COMPARISON: None. FINDINGS: Normal enhancement of the main pulmonary artery and right and left pulmonary arteries. Normal enhancement of the bilateral peripheral pulmonary arteries. There is no demonstrated pulmonary embolism. Mildly calcified thoracic aorta and visualized great vessels. Borderline ascending aorta measuring 4 cm in diameter There is no demonstrated aortic dissection. Normal heart and pericardium. A stent is noted at aortic valve. Normal mediastinum. Normal hilar regions. Normal visualized trachea and bronchi. The lungs are well expanded. Normal pulmonary parenchyma. Normal pleura. Normal chest wall structures. Normal osseous structures. Partially visualized left renal cyst. Colonic diverticulosis with fecal retention in the visualized colon. CT/CTA Chest W/WO Contrast IMPRESSION: No demonstrated pulmonary embolism or arterial dissection. Borderline ascending aorta. Colonic diverticulosis. Electronically Signed: Ryan Ahumada DO at 23:30 EDT Tel [phone], Service support ,
== END ==
PROVIDERS: Family Provider Family Medicine; PCP Family Medicine; Referring Provider Family Medicine; Visit Provider Family Medicine
DX: R06.02 Shortness of breath (principal)
CPT/HCPCS: 36415; 71275; 85379; Q9967

== ENCOUNTER → 2018-12-24 06:48 | Outpatient (CLI) | payer MEDICARE, OTHER, SELFPAY ==
[2017-12-03 16:22] VITALS: BMI 23.6
[2018-06-28 10:09] VITALS: BMI 29.2
--- NOTE | 2018-12-25 08:43 | PFT ---
INTRODUCTION: The patient is a 68-year-old male that presents for pulmonary function studies secondary to a diagnosis of dyspnea. Respiratory therapy reports good patient effort. Bronchodilators were used during testing. INTERPRETATION: Forced expiration spirometry demonstrates the presence of a mild large airways obstructive ventilatory defect. There was a significant response to aerosolized bronchodilators, based upon change noted in FEV1. Spirograms are of good quality and plateau gradually indicating slow emptying of the lungs. Body plethysmography was performed and reveals lung volumes to be within normal limits. Diffusing capacity by single breath CO is also within normal limits. IMPRESSION: Fully reversible mild large airways obstructive ventilatory defect, which could represent underlying asthma in the appropriate clinical scenario.
== END ==
PROVIDERS: Family Provider Family Medicine; PCP Family Medicine; Referring Provider Family Medicine; Visit Provider Family Medicine
DX: R06.00 Dyspnea, unspecified (principal)
CPT/HCPCS: 94060; 94726; 94729

== ENCOUNTER → 2019-01-27 06:43 | Outpatient (CLI) | payer MEDICARE, OTHER, SELFPAY ==
[2017-12-03 16:22] VITALS: BMI 23.6
[2019-01-07 12:43] VITALS: BMI 29.0
[2019-01-27 10:16] LABS: Hematocrit 45.8 % (40-54); Hemoglobin 15.7 g/dL (13.0-16.5); Mean Corp Hgb Conc 34.3 g/dL (32-36); Mean Corpuscular Hgb 30.1 pg (27.0-32.0); Mean Corpuscular Volume 87.7 fL (80-94); Mean Platelet Vol. 9.8 fl (6.2-12.0); Platelet Count 229 K/mm3 (150-450); RBC Distribution Width CV 12.5 % (11.6-14.6); RBC Distribution Width SD 39.8 fl (35.1-43.9); Red Blood Count 5.22 M/mm3 (4.6-6.2); White Blood Count 5.7 K/mm3 (4.4-11.0)
[2019-01-27 10:48] LABS: Anion Gap 2 (5-15); BUN 18 mg/dL (7-18); BUN/Creat Ratio 17.3 RATIO (10-20); Calcium,Total 9.5 mg/dL (8.5-10.1); Chloride 107 mmol/L (98-107); Creatinine, Serum 1.04 mg/dL (0.70-1.30); EST Glomerular Filtration Rate 76 mL/min (>60); Est Glom Filt Rate - Afr Amer 92 mL/min (>60); Glucose 81 mg/dL (74-106); Potassium 4.6 mmol/L (3.5-5.1); Sodium Level 140 mmol/L (136-145)
--- NOTE | 2019-01-27 13:00 | STRESSREP ---
Stress Test Report Exercise myocardial perfusion stress test. 68-year-old male with a history of coronary artery disease status post aortic valve replacement via TAVR. Stress protocol: Resting EKG demonstrates normal sinus rhythm with a rate of 65 bpm normal intervals are noted. The patient exercised according to regular Amos protocol for a total duration of 4 minutes and 12 seconds the maximum heart rate attained was 123 bpm which was 80% of maximum predicted heart rate the maximum workload was 6 metabolic equivalents. Patient maintained sinus rhythm throughout the recording. At rest there were no ST or T wave changes noted suggest ischemia at peak exercise is mildly downsloping ST depression noted in lead II which was equivocal for meeting criteria for ischemia. The resting blood pressure was 160/92 with a final blood pressure 138/92. At peak exercise there was approximately 1.[address] depression noted in lead II noted. The test was terminated due to chest discomfort as well as severe dyspnea. Myocardial perfusion protocol. 12.0 mCi of technetium 99m sestamibi was injected at rest. Patient exercised according to regular Amos protocol for total duration of 4 minutes and 12 seconds attaining 6 metabolic equivalents and 80% of maximum predicted heart rate. At peak exercise 35.0 mCi of technetium 99m sestamibi was injected stress images were obtained stress and rest images were reconstructed and compared in the short axis vertical and horizontal long axis. Gated images were also obtained Perfusion SPECT analysis: Review of the stress images demonstrate normal uptake of tracer noted in all areas of the myocardium. The resting images similarly demonstrate a normal uptake of tracer noted in all areas of the myocardium. No obvious reversibility areas are noted to suggest ischemia no previous infarct is noted. Gated SPECT analysis: The gated ejection fraction is noted to be 53%. Conclusion: Normal exercise myocardial perfusion stress test at a low to moderate workload. Marked chest discomfort and dyspnea noted. Preserved ejection fraction.
== END ==
PROVIDERS: Family Provider Family Medicine; PCP Family Medicine; Referring Provider Internal Medicine Cardiovascular Disease; Visit Provider Internal Medicine Cardiovascular Disease
DX: R94.39 Abnormal result of other cardiovascular function study (principal); R07.9 Chest pain, unspecified; I25.10 Atherosclerotic heart disease of native coronary artery without angina pectoris; Z95.1 Presence of aortocoronary bypass graft; Z95.2 Presence of prosthetic heart valve
CPT/HCPCS: 36415; 78452; 80048; 85027; 93017; A9500; A4216

== ENCOUNTER 2019-01-30 06:45 | Day surgery (SDC) | payer MEDICARE, OTHER, SELFPAY ==
[2017-12-03 16:22] VITALS: BMI 23.6
[2019-01-07 12:43] VITALS: BMI 29.0
[2019-01-29 08:30] VITALS: BMI 29.0
[2019-01-30] VITALS (30 sets, daily range): BP systolic 119–159; BP diastolic 69–103; PULSE 59–84; RESP 12–25; TEMP 36.7–36.8; O2SAT 96–100; BMI 29.0
[2019-01-30] MEDS: 0.9% Normal Saline 1,000 ML 80 ML IV (09:35)
--- NOTE | 2019-01-30 09:48 | CL.D_ITS ---
Patient Name: CHLOE WILCOX Study Date: 01/30/2019 Performing: Sameer Guzman MD Ht: 64 inches 163 cm : 1950 Wt: 170 lbs 77 kg Age: 68 Gender: male BSA: 1.83 PROCEDURE(S) PERFORMED DC35-BPQ/COR/CABG DC11-AO ROOT ANGIO WITH HEART CATH [id number] W OR WO PTCA, SINGLE CORONARY ARTERY CLINICAL PROFILE AND INDICATIONS Indications: Suspected CAD Heart Failure: None Stress/Imaging Date: 01/27/2019 CAD Presentations: Unstable angina. CONCLUSIONS Severe disease noted of the jena left circumflex artery. The saphenous vein graft to the circumfle x artery was noted to be occluded this was a sequential from the saphenous vein graft to the LAD and is noted to be totally occluded. The saphenous vein graft to the right coronary artery is patent RECOMMENDATIONS Referred for immediate PCI DESCRIPTION OF PROCEDURE The patient arrived to the procedure lab. The risks and benefits of the procedure as well as a full d escription of our services here and current unavailability of surgical backup were fully explained to the patient and/or their significant other prior to the catheterization. The Timeout was completed, verifying the correct patient and procedure. The patient's procedural site was prepped and draped in the usual fashion. Local anesthetic was given subcutaneously to right groin region with Lidocaine 2%. Using a modified Seldinger technique, arterial access was obtained via the right femoral artery, a 5 Fr sheath was inserted. Left Coronary Artery selective angiography was performed in multiple views u sing a 5 Fr. JL4 catheter. Saphenous Vein graft to the RCA selective angiography was performed in mul tiple views using a 5 Fr. AR MOD catheter. Saphenous Vein graft to the LAD selective angiography was performed in multiple views using a 5 Fr. AR MOD catheter. Ascending (root) aorta selective angiography was then performed in single view. Ascending (root) aorta selective angiography was then performed in single view.Contrast was injected through the sheath and the Right Iliac and F emoral artery were assessed for possible closure device.The arterial sheath was sutured in place and capped CORONARY ANGIOGRAPHY DOMINANCE: Right Dominant LEFT MAIN: Moderate calcification LEFT ANTERIOR DESCENDING ARTERY: PROX LAD: is occluded CIRCUMFLEX ARTERY: PROX CIRC: The proximal circumflex artery had an eccentric 80% calcified lesion giving off 3 small si de branches and then 3 further obtuse marginal branches. RIGHT CORONARY ARTERY: is occluded GRAFTS: Saphenous Vein graft to the Mid LAD Patent with a proximal 50 to 60% stenotic lesion the distal left anterior descending artery appears to have mild disease Saphenous Vein graft to the RPDA is patent Saphenous Vein graft to the Mid CIRC This was previously stented and is noted to be totally occluded AORTIC ROOT: Atherosclerotic COMPLICATIONS No Complications PROCEDURE MEDICATIONS Versed 1 mg IV Versed 1 mg IV Oxygen: 2 L/min via nasal cannula Brilinta 180 mg PO @ 01/30/2019 09:06:25 Heparin 6000 unit(s) IV 01/30/2019 08:44:56 SUMMARY OF HEMODYNAMIC DATA Time AIR REST ECG 07:03:10 AO 126/67 (92) SA 08:16:49 Signed By Sameer Guzman MD On 01/30/2019 09:47:28 Sameer Guzman MD
--- NOTE | 2019-01-30 10:45 | EKG12_ITS ---
Test Reason : AM EKG Blood Pressure : / mmHG Vent. Rate : 063 BPM Atrial Rate : 063 BPM P-R Int : 192 ms QRS Dur : 096 ms QT Int : 466 ms P-R-T Axes : 044 012 099 degrees QTc Int : 476 ms Normal sinus rhythm T wave abnormality, consider lateral ischemia Prolonged QT Septal PA, age undetermined, cannot be excluded Abnormal ECG Confirmed by JONAS FREEMAN, FREDA ([id number]), news videotape editor TALON PIMENTEL ([id number]) on 02/05/2019 1:14:00 PM Referred By: Sameer Guzman Confirmed By:FREDA MCDANIEL MD
[2019-01-30 10:51] LABS: ACT Activated Clotting Time 186 sec (74-137)
[2019-01-30 11:46] LABS: ACT Activated Clotting Time 158 sec (74-137)
--- NOTE | 2019-01-30 18:46 | CL.I_ITS ---
Patient Name: CHLOE WILCOX Study Date: 01/30/2019 Performing: Dereje Nicholson MD Ht: 64 inches 163 cm : 1950 Wt: 170 lbs 77 kg Age: 68 Gender: male BSA: 1.83 PROCEDURE(S) PERFORMED DC11-AO ROOT ANGIO WITH HEART CATH [id number] W OR WO PTCA, SINGLE CORONARY ARTERY CLINICAL PROFILE AND CO-MORBIDITIES Indications: Suspected CAD Heart Failure: None Stress/Imaging Date: 01/27/2019 CAD Presentations: Unstable angina. CONCLUSIONS Successful PCI of pLCx and distal LM with MELVIN RECOMMENDATIONS ASA Indefinitley Brilinta for at least 12 months DESCRIPTION OF PROCEDURE The patient arrived to the procedure lab. The risks and benefits of the procedure as well as a full d escription of our services here and current unavailability of surgical backup were fully explained to the patient and/or their significant other prior to the catheterization. The Timeout was completed, verifying the correct patient and procedure. The patient's procedural site was prepped and draped in the usual fashion. Local anesthetic was given subcutaneously to right groin region with Lidocaine 2% Using a modified Seldinger technique,arterial access was obtained via the right femoral artery, a 5Fr sheath was inserted. Left Coronary Artery selective angiography was performed in multiple views usin g a 5 Fr. JL4 catheter. Saphenous Vein graft to the RCA selective angiography was performed in multip le views using a 5 Fr. AR MOD catheter. Saphenous Vein graft to the LAD selective angiography was per formed in multiple views using a 5 Fr. AR MOD catheter. Ascending (root) aorta selective angiography was then performed in single view. Ascending (root) aorta selective angiography was then performed in single view.The images were reviewed and options discussed. A decision was then made to proceed with an Intervention, IVUS or other adjunct procedure. Arterial sheath was exchanged for a 6 Fr Sheath. XB 3.0 Guide catheter was inserted and engaged i nto the LCA. BMW Brussels Guide wire was advanced to the Circumflex. Emerge 2.5 x 12 Balloon cathete r was inserted. Balloon catheter was advanced across lesion in the circumflex, ostial. PTCA balloon i nflated at 6 atms for 19 secs. PTCA balloon inflated at 10 atms for 11 secs. Synergy 3.0 x 24 Drug El uting stent was inserted. Drug Eluting stent was advanced across the lesion in the circumflex, ostial . Contrast was injected through the sheath and the Right Iliac and Femoral artery were assessed for p ossible closure device. The arterial sheath was sutured in place and capped INTERVENTION INFORMATION LESION SITE: Circumflex (Ostial) Lesion Complexity: High/C, chronic total occlusion: No, lesion at bifurcation: No, thrombus present: No, lesion length: 22 mm, culprit lesion: Yes, Previously treated lesion: No Pre Stenosis: 90 % Pre intervention OSCAR flow: 3 PROCEDURE: Drug Eluting Stent with pre dilatation. Post Stenosis: 0 % Post intervention OSCAR flow: 3 Lesion Devices: Cardinal 6 Fr XB3.0 100cm Guide Catheter Horton .014 BMW Brussels Straight 190cm Andrea Sci EMERGE MR 2.50x12 BALLOON Andrea Sci Synergy MR MELVIN 3.00x24 COMPLICATIONS No Complications PROCEDURE MEDICATIONS Versed 1 mg IV Versed 1 mg IV Oxygen: 2 L/min via nasal cannula Brilinta 180 mg PO @ 01/30/2019 09:06:25 Heparin 6000 unit(s) IV 01/30/2019 08:44:56 SUMMARY OF HEMODYNAMIC DATA Time AIR REST ECG 07:03:10 AO 126/67 (92) SA 08:16:49 Signed By Dereje Nicholson MD On 01/30/2019 18:45:52 Dereje Nicholson MD
--- NOTE | 2019-01-30 20:05 | NURSING ---
Pt walked on unit w/SBA, gait steady; no c/o pain, cath site intact.
[2019-01-30] MEDS: TICAGRELOR 90 MG TABLET PO (21:41)
[2019-01-30] MEDS: Atorvastatin Calcium 80 MG Tablet PO (21:41)
[2019-01-31] VITALS (17 sets, daily range): BP systolic 102–136; BP diastolic 59–106; PULSE 61–79; RESP 12–23; TEMP 36.6–36.7; O2SAT 96–100; BMI 28.8
[2019-01-31 05:27] LABS: Hematocrit 42.2 % (40-54); Hemoglobin 14.5 g/dL (13.0-16.5); Mean Corp Hgb Conc 34.4 g/dL (32-36); Mean Corpuscular Hgb 29.5 pg (27.0-32.0); Mean Corpuscular Volume 85.8 fL (80-94); Mean Platelet Vol. 9.5 fl (6.2-12.0); Platelet Count 213 K/mm3 (150-450); RBC Distribution Width CV 12.5 % (11.6-14.6); RBC Distribution Width SD 38.8 fl (35.1-43.9); Red Blood Count 4.92 M/mm3 (4.6-6.2); White Blood Count 6.2 K/mm3 (4.4-11.0)
[2019-01-31 05:54] LABS: ALB/GLOB Ratio 1.1 RATIO (0.9-2.4); AST(SGOT) 19 U/L (15-37); Alanine Aminotransfer ALT/SGPT 29 U/L (16-61); Albumin, Serum 3.2 g/dL (3.2-5.0); Alkaline Phosphatase 101 U/L (45-117); Anion Gap 6 (5-15); BUN 20 mg/dL (7-18); BUN/Creat Ratio 19.6 RATIO (10-20); Calcium,Total 8.3 mg/dL (8.5-10.1); Chloride 108 mmol/L (98-107); Creatinine, Serum 1.02 mg/dL (0.70-1.30); EST Glomerular Filtration Rate 77 mL/min (>60); Est Glom Filt Rate - Afr Amer 94 mL/min (>60); Estimated Creatinine Clearance 58.85 ml/min; Globulin 2.9 g/dL (2.2-4.2); Glucose 88 mg/dL (74-106); Protein, Total 6.1 g/dL (6.4-8.2); Sodium Level 141 mmol/L (136-145)
[2019-01-31] MEDS: Aspirin E.C. 81 MG Tablet PO (08:32)
[2019-01-31] MEDS: Multivitamins,Therapeutic Tablet 1 TABLET PO (08:32)
[2019-01-31] MEDS: TICAGRELOR 90 MG TABLET PO (08:32)
--- NOTE | 2019-01-31 10:00 | EKG12_ITS ---
Test Reason : S\P PCI Blood Pressure : / mmHG Vent. Rate : 061 BPM Atrial Rate : 061 BPM P-R Int : 204 ms QRS Dur : 096 ms QT Int : 466 ms P-R-T Axes : 039 004 112 degrees QTc Int : 469 ms Somatic/Motion Artifact Normal sinus rhythm Poor R wave progression Prolonged QT Abnormal ECG Confirmed by JONAS FREEMAN, FREDA ([id number]), television news video editor TALON PIMENTEL ([id number]) on 02/05/2019 1:16:01 PM Referred By: Sameer Guzman Confirmed By:FREDA MCDANIEL MD
--- NOTE | 2019-01-31 10:26 | DCINST_ITS ---
Discharge Diet: Low fat/ Low Cholesterol Discharge Activity: Return to Normal Activity May shower in (days): 1 Lifting Restrictions: 10 pounds and also avoid any pushing or pulling for 3 days after your test. Call your doctor if your incision/area has: Continuous Slow Oozing, Sudden Increased Bleeding, Increased Pain/ Swelling, Increased Redness, Foul Smelling Discharge, Swelling at the incision site Call your doctor if you observe: Fever of 101 or Higher, Shortness of breath, Chest pain Remove Dressing in (days):: 1 Cleanse incision/area with: Soap & Water Additional Dressing/Incision Instructions:: Keep the dressing (bandage) on until the next morning. You may then shower, but do not take a tub bath for 5 days after your test. It is normal to have some tenderness and discomfort at the puncture site. Sometimes bruising also occurs. However, if pain, numbness, or coldness occurs below the puncture site (in your leg, toes, arms or fingers) call your doctor at once. You may have a small, marble sized knot at the puncture site. This is normal. Do not rub it. It will go away in 4-6 weeks. Bleeding can occur from the area where the puncture was done. Blood may spurt or drip from the site. If blood spurts, apply pressure right away to stop bleeding and call 911. Although rare, bleeding into the tissue (hematoma) can also occur. If this happens, a large, firm area goose egg under the skin will appear. If any of these occur, lie down as flat as you can and have someone apply firm pressure to the cath site with a gauze pad or a clean washcloth for 10-15 minutes. Call 911 or go to the Emergency Department. Additional Instructions: I started you on Toprol 12.5 mg daily. You are to stop your plavix and stay on Brilinta. This is a twice a day medication. You can start light exercises on sunday ( walking like you have been). Do not start running until I see you. After you see us, you can start cardiac rehab. Allergies/Adverse Reactions: Allergies No Known Allergies Allergy (Unverified 01/07/19 12:43) Medications to take at Discharge cetirizine 10 mg tablet 5 mg PO QDAY PRN 02/07/17 nitroglycerin 0.4 mg sublingual tablet 0.4 mg SUBLINGUAL Q5-15M PRN #25 tab 09/24/17 aspirin 81 mg tablet,delayed release 81 mg PO DAILY@0800 #90 tab 12/04/17 atorvastatin 80 mg tablet 80 mg PO QHS 06/24/18 multivitamin with folic acid 400 mcg tablet 1 tab PO DAILY 01/07/19 Metoprolol(XL)Succ [Toprol Xl (Beta Bob)] 12.5 mg PO DAILY #15 tab 01/31/19 Nitroglycerin (INPATIENT USE) [Nitrostat] 0.4 mg SUBLINGUAL Q5M PRN #60 tab.subl 01/31/19 The following prescriptions were given: Nitroglycerin (INPATIENT USE) [Nitrostat] 0.4 mg SUBLINGUAL Q5M PRN #60 tab.subl PRN Reason: chest pain Transmission Status: Pending to [facility] [place] [address] Metoprolol(XL)Succ [Toprol Xl (Beta Bob)] 12.5 mg PO DAILY #15 tab Transmission Status: Pending to [facility] [place] [address] Primary Care Physician: Gianni Brooks MD [Primary Care Provider] - Test Results: Test results from this visit will be discussed in further detail at your follow- up appointment, if applicable. Please Follow Up With: Courtney Carter PA When: 02/17 at 0930 Cardiac Rehabilitation Info Cardiac Rehabilitation Program Information: Cardiac Rehabilitation is important for patients like you who are recovering from a heart problem. Cardiac rehabilitation programs are recognized as integral to the continued care of the patient with coronary heart disease. The cardiac rehabilitation program is designed to optimize a patient's physical, psychological, and social functioning. Health care administrative tech work in cardiac rehabilitation programs and assist you with getting the treatments you need to get stronger and healthier - like exercise, healthy eating habits, and medications. Cardiac rehabilitation has been show to help people with heart problems live longer and have better life enjoyment than people who do not go to cardiac rehabilitation. Please contact the Cardiac Rehabilitation Program at [facility] at in two weeks if you have not heard from them.
--- NOTE | 2019-01-31 10:36 | CRPHASE1_ITS ---
Patient Communication Former Patient:: Phase II PHII Cardiac Rehab Discussed with Patient:: Yes Guide to Cardiac Rehab Given to Patient:: Yes Cardiac Rehab Facility Choice List Given to Patient:: Yes - [facility] Box Sealing Machine Catcher:: Mara Nicholson Sessions:: 36 sessions - 3 days/wk, 12 weeks Risk Factors/Lifestyle Smoking Status: Never smoker Hx Hypertension: Yes Hx Diabetes Mellitus Type 2: No Height: 1.63 m Weight:: 76.7 kg BMI: 28.8 Stress: Work-related ETOH: No Caffeine: Yes Substance Abuse: No Family History: Family History (Last Reviewed 01/07/19 @ 15:13 by Sameer Guzman MD) Brother CAD (coronary artery disease) Brother CAD (coronary artery disease) Brother CAD (coronary artery disease) Brother CAD (coronary artery disease) Sister Hypertension CAD (coronary artery disease) Other Colon cancer Family History: High Cholesterol, Heart Disease, Hypertension Phase I Education Given On:: [place], Nutrition, Antiplatelet medication Issues Affecting Care:: None Knowledge of Condition:: Yes Hospital Course Pain Description: Pressure Pain Intensity: 8 Cardiac Cath Date:: 01/31/19 Medical/Surgical History CAD:: Yes Hypertension:: Yes Dyslipidemia:: Yes CABG: Yes PTCA:: Yes - VALUE REPLACED IN AND 2018 Discharge/Home/Social Eval Discharge Disposition: Home Cardiac Rehabilitation Info Cardiac Rehabilitation Program Information: Cardiac Rehabilitation is important for patients like you who are recovering from a heart problem. Cardiac rehabilitation programs are recognized as integral to the continued care of the patient with coronary heart disease. The cardiac rehabilitation program is designed to optimize a patient's physical, psychological, and social functioning. Health medicare biller work in cardiac rehabilitation programs and assist you with getting the treatments you need to get stronger and healthier - like exercise, healthy eating habits, and medications. Cardiac rehabilitation has been show to help people with heart problems live longer and have better life enjoyment than people who do not go to cardiac rehabilitation. Please contact the Cardiac Rehabilitation Program at [facility] at in two weeks if you have not heard from them.
--- NOTE | 2019-01-31 10:41 | CRPH1.INSTRU ---
General Education CAD and cardiac anatomy and function:: Patient communicates acknowledgment Explanation of diagnoses and procedures:: Patient communicates acknowledgment Sign/Symptoms of AK:: Not instructed Antiplatelet therapy: Not instructed Proper use of NTG-SL: Not instructed Emergency procedures and activation of EMS: Patient communicates acknowledgment Compliance of all prescribed medications: Not instructed Smoking Patient Nicotine/Smoking Risk Factors Are:: Never smoked Dyslipidemia Recommendations Include:: Lipid profile not available Overweight/Obesity Patient Overweight/Obesity Risk Factors Are:: BMI Normal [24-29 & > 65 years old] Hypertension Hypertension:: Patient communicates acknowledgment Heart Disease Patient Heart Disease Risk Factors Are:: Family history of heart disease < 65 years old, Previous cardiac event Heart Disease Response Code:: Patient communicates acknowledgment Diabetes Patient Diabetes Risk Factors Are:: No documented hx of diabetes Metabolic Syndrome Recommendations Include:: Does not meet criteria Sedentary Sedentary Response Code:: Patient communicates acknowledgment - HE WAS RUNNING WHEN HE HAD CHEST PRESSURE. Stress Patient Stress Risk Factors Are:: Patient denies stress as a risk factor
--- NOTE | 2019-01-31 13:20 | PCM.PN.CARD ---
<Courtney Carter M - Last Filed: 01/31/19 13:20> Subjectve: Patient states that he still does have some dull chest discomfort that he rates as a 1 out of 10. He notes that this is only when he thinks about it. It is not when he is involved in activities such as watching TV since he was here yesterday. Objective: Vital Signs Temp Pulse Resp BP Pulse Ox 98.1 F 66 18 136/61 H 98 01/31/19 12:00 01/31/19 12:00 01/31/19 12:00 01/31/19 12:00 01/31/19 12:00 Oxygen Delivery Method Room Air Weight: 169 lb 1.513 oz Body Mass Index (BMI) 29.0 Finger Stick Blood Glucose 136 Intake and Output for Last 24 Hours 01/29/19 01/30/19 01/31/19 23:59 23:59 23:59 Intake Total 980 / 1280 300 / 300 Output Total 900 / 1600 700 / 700 Balance 80 / -320 -400 / -400 General: Healthy Appearing, Awake, Alert, Oriented x 3, Cooperative HEENT: Atraumatic, Normocephalic Oral: Moist Mucosa Neck: Supple, Good ROM Lungs: Clear to auscultation Cardiovascular: Regular Rhythm, Normal S1, Normal S2, No Murmurs, No Rubs, No Gallops Abdomen: Bowel Sounds Present, Soft, Non Tender Extremities: No Cyanosis, No Clubbing, No edema Neurological: No Focal Motor or Sensory Deficit, CN II-XII Intact Psych/Mental Status: Appropriate, Normal Affect 01/31/19 05:05: WBC 6.2, RBC 4.92, Hgb 14.5, Hct 42.2, MCV 85.8, MCH 29.5, MCHC 34.4, Plt Count 213, MPV 9.5 01/31/19 05:05: Sodium 141, Potassium 4.0, Chloride 108 H, Carbon Dioxide 27.0, Anion Gap 6, BUN 20 H, Creatinine 1.02, Est GFR (MDRD) Af Amer 94, Est GFR (MDRD) Non-Af 77, BUN/Creatinine Ratio 19.6, Glucose 88, Calcium 8.3 L, Total Bilirubin 0.60 Rhythm: EKG: ECHO: Stress Test: Cardiac Cath:Severe disease noted of the yocha dehe left circumflex artery. The saphenous vein graft to the circumflex artery was noted to be occluded this was a sequential from the saphenous vein graft to the LAD and is noted to be totally occluded. The saphenous vein graft to the right coronary artery is patent PCI:Successful PCI of pLCx and distal LM with MELVIN CT Surgery: Holter monitor: EPS: PPM: CXR: Chest CT Scan: Medical Necessity - Tobacco Use Smoking Status: Never smoker Assessment/Plan 1. Coronary artery disease: Patient did undergo stenting to his circumflex and left main yesterday. He does note that he is still having some chest discomfort. Question if this is musculoskeletal. Feel that is likely not cardiac. Did express to patient that he should monitor this closely and let us know if this worsens. He does have PRN nitrates at home. We will start patient on a low-dose beta-jana. He will continue with his atorvastatin and aspirin. He will also continue with his Plavix. He will follow-up with us in the office in 2 weeks. <Anders Horne - Last Filed: 01/31/19 14:00> Objective: Vital Signs Temp Pulse Resp BP Pulse Ox 98.1 F 66 16 135/64 H 96 01/31/19 12:00 01/31/19 13:00 01/31/19 13:00 01/31/19 13:00 01/31/19 13:00 Oxygen Delivery Method Room Air Weight: 169 lb 1.513 oz Body Mass Index (BMI) 29.0 Finger Stick Blood Glucose 136 Intake and Output for Last 24 Hours 01/29/19 01/30/19 01/31/19 23:59 23:59 23:59 Intake Total 980 / 1280 300 / 300 Output Total 900 / 1600 700 / 700 Balance 80 / -320 -400 / -400 01/31/19 05:05: WBC 6.2, RBC 4.92, Hgb 14.5, Hct 42.2, MCV 85.8, MCH 29.5, MCHC 34.4, Plt Count 213, MPV 9.5 01/31/19 05:05: Sodium 141, Potassium 4.0, Chloride 108 H, Carbon Dioxide 27.0, Anion Gap 6, BUN 20 H, Creatinine 1.02, Est GFR (MDRD) Af Amer 94, Est GFR (MDRD) Non-Af 77, BUN/Creatinine Ratio 19.6, Glucose 88, Calcium 8.3 L, Total Bilirubin 0.60 Rhythm: EKG: ECHO: Stress Test: Cardiac Cath: PCI: CT Surgery: Holter monitor: EPS: PPM: CXR: Chest CT Scan: Assessment/Plan Addendum: Date: 01-31-19 The patient was independently evaluated and examined. At the present time the patient appears to be resting comfortably. He denies any ongoing discomfort at rest or status post ambulation. There is been no evidence of acute shortness of breath or dyspnea. There is been no symptoms of lightheadedness dizziness near syncope or syncope. His examination demonstrates his lungs to be clear. His cardiovascular examination demonstrates a regular rhythm with a normal S1 and S2 with a 2/6 systolic murmur at the lower left sternal border/LVOT area. His extremities are without obvious peripheral pitting edema. His cardiac rhythm has remained sinus rhythm. His ECG is demonstrated sinus rhythm with a septal OK pattern of indeterminate age cannot be excluded and a nonspecific T wave. At the present time he carries a diagnosis of CAD status post previous PCI status post previous CABG status post transcatheter aortic valve replacement and paroxysmal atrial fibrillation. He is now status post repeat PCI. He appears to be symptomatically and hemodynamically stable. The plan will be for continued medical therapy and outpatient cardiovascular follow-up. The above was discussed with the patient, his spouse, and BAKARI Walker. This note was generated using a voice recognition system and there may be incorrect words, spelling or punctuation that were not noted when reviewing the office note prior to saving.
== END 2019-01-31 13:50 | disposition home or self-care (01) ==
LOC: CLSP 06:45 → ICU 10:51
PROVIDERS: Specialist; Family Provider Family Medicine; PCP Family Medicine; Referring Provider Internal Medicine Cardiovascular Disease; Visit Provider Internal Medicine Cardiovascular Disease
DX: I25.110 Atherosclerotic heart disease of native coronary artery with unstable angina pectoris (principal); I25.82 Chronic total occlusion of coronary artery; I48.0 Paroxysmal atrial fibrillation; R07.89 Other chest pain; Z95.1 Presence of aortocoronary bypass graft; Z95.2 Presence of prosthetic heart valve; Z95.5 Presence of coronary angioplasty implant and graft; I35.2 Nonrheumatic aortic (valve) stenosis with insufficiency; E78.5 Hyperlipidemia, unspecified; M19.90 Unspecified osteoarthritis, unspecified site; Z79.82 Long term (current) use of aspirin; Z79.02 Long term (current) use of antithrombotics/antiplatelets; Z79.899 Other long term (current) drug therapy; Z86.73 Personal history of transient ischemic attack (TIA), and cerebral infarction without residual deficits
CPT/HCPCS: 80053; 85027; 85347; 92928; 93005; 93455; 93567; 99152; 99153; J7030; J7040; C1725; C1751; C1769; C1874; C1887; C9600; J1327; Q9967

== ENCOUNTER → 2019-02-25 07:59 | Outpatient (CLI) | payer MEDICARE, OTHER, SELFPAY ==
[2019-01-31 10:41] VITALS: BMI 28.8
[2019-02-17 09:28] VITALS: BMI 29.0
--- NOTE | 2019-02-25 08:15 | PCM.CR.HP2 ---
CR - History & Physical - General Arrival date:: 02/25/19 Arrival time:: 08:00 Date of Referral:: 01/30/19 Date of CR Evaluation:: 02/25/19 Referring Physician: DR. SAMEER PAGAN Primary Diagnosis: PCI W/CORONARY STENT - History of Present Cardiac Event Onset Date: Enter Onset Date of cardiac illnesses in Comment field below Coronary Artery Bypass Graft:: Yes - Heart valve replacement or repair:: Yes - 04/2018, 11/1995 PTCA or coronary stenting:: Yes - 01/30/2019, 11/2017 Type of Symptoms:: SHORTNESS OF BREATH, FATIGUE, LEFT ARM PAIN Interventions with present event:: HEART CATH, STRESS TEST - Medications Home Medications: Ambulatory Orders Medication Instructions Recorded cetirizine 10 mg tablet 5 mg PO QDAY PRN 02/07/17 nitroglycerin 0.4 mg sublingual 0.4 mg SUBLINGUAL Q5-15M PRN #25 09/24/17 tablet tab aspirin 81 mg tablet,delayed 81 mg PO DAILY@0800 #90 tab 12/04/17 release multivitamin with folic acid 400 1 tab PO DAILY 01/07/19 mcg tablet atorvastatin 80 mg tablet 80 mg PO QHS #90 tab 02/17/19 metoprolol succinate 25 mg 12.5 mg PO DAILY #45 tab 02/17/19 tablet,extended release 24 hr ticagrelor 90 mg tablet 90 mg PO BID #60 tab 02/17/19 - Allergies Allergies/Adverse Reactions: Allergies carrot Allergy (Verified 02/25/19 08:29) Itching NIGERIAN FOODS Adverse Reaction (Uncoded 02/25/19 08:30) Hives - Sleep Disorder Evaluation Hx of Sleep Apnea: No Do you snore loudly (louder than talking or can be heard through closed doors)?: Yes - TESTED ONCE AND WAS TOLD HE DID NOT HAVE ANY SLEEP DISORDERS Do you often feel tired/ fatigued/ sleepy during daytime?: No Has anyone observed you stop breathing during sleep?: No History of Hypertension (for STOP score): Yes STOP Results: Positive Advanced Directives - Advanced Directives Power of 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 Living Will: Yes Advance Directives Information Provided: No Advance Directives on File: No - Patient states he doses not believe they are on file here - MOLST See MOLST form: No Past Medical History - Past Medical Illness Medical History: Past Medical History (Last Updated 01/31/19 @ 10:41 by Eri Chacon) Atherosclerosis of coronary artery bypass graft without angina pectoris (Chronic) I25.810 Nonrheumatic aortic (valve) stenosis with insufficiency (Chronic) I35.2 Paroxysmal atrial fibrillation (Resolved) I48.0 Hyperlipidemia (Chronic) E78.5 Arthritis M19.90 CVA (cerebral vascular accident) Onset Date: ~2010 I63.9 Lacunar Infarct DDD (degenerative disc disease), cervical M50.30 Hemorrhoids K64.9 Personal history of colonic polyps Z86.010 Transient ischemic attack G45.9 Nonrheumatic mitral (valve) insufficiency (Inactive) I34.0 - Past Surgical History Surgical History: Past Surgical History (Last Updated 01/31/19 @ 10:41 by Eri Chacon) History of coronary artery stent placement (Resolved) Onset Date: 01/30/19 Z95.5 PCI-MELVIN-Mid SVG-OM1 w/ 3.0 x 12 mm Synergy MR Stent 12/03/17; [id number]-[id number]-Szaojw LM and Ostial LCx w/ 3.0 x 24 mm Synergy Stent 01/30/19 H/O coronary artery bypass surgery (Resolved) Onset Date: 06/23/10 Z95.1 CABG x 3- SVG-LAD, SVG-OM1, SVG-RPDA 06/23/2010 H/O aortic valve replacement (Resolved) Onset Date: 04/23/18 Z95.2 AVR 12/03/1995; TAVR 23 mm Hinds Sapin S3 valve 04/23/18 Surgical History: - - replacement of aortiv valve - Family History Summary Family History: Family History (Last Reviewed 01/07/19 @ 15:13 by Sameer Pagan MD) Brother CAD (coronary artery disease) 2nd brother CABG Brother CAD (coronary artery disease) 3rd brother PCI-Stents Brother CAD (coronary artery disease) 4 brother PCI-Stents and CABG Brother CAD (coronary artery disease) 6th brother PCI-Stents Sister Hypertension CAD (coronary artery disease) CABG age 70 Other Colon cancer Social History - Smoking History Smoking Status: Never smoker Hx Tobacco Use: No Hx Smoking Exposure: No - Alcohol Use Alcohol Usage: Yes - occasional beer now and then - Substance Abuse Hx Substance Use: No - Occupation Occupation (List type of work in comments):: Retired - Hobbies, Recreation, Social Activities Hobbies: 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 Left click = Reports ([place]) Review of Present Symptoms: Reports: Fatigue - some here and there, but not a problem to speak of., Heart Arrhythmia/Irregularities - paroxysmal Super ventricular tachycardia in 1997, Appetite - Normal. Denies: Shortness of Breath at Rest, Shortness of Breath with Exertion, Angina, Dizziness/Lightheadedness, Sleep - Normal - since hte last stent occasionally at night finds he is only sleeping a few hours and then is awakened. This is not consistent, he does have nights where he sleeps a good 6-7 hours. - Pain Is Patient Pain Free?: No Pain Location: none Pain Level: 0/10 Risk Factor Assessment - Chief Complaint Chief Complaint: PCI W/CORONARY STENTING, PREVIOUS CABG AND HEART VALVE REPLACEMENT. - Vital Signs Temperature: 98 F - 6 Respiratory Rate: 14 Pulse Ox: 96 Blood Pressure: 120/78 - Pulse Pulse Rate: 64 Pulse Rhythm: Regular - Hypertension Blood Pressure Sitting - Left Arm: 120/78 - Blood Cholesterol/Lipids HDL Cholesterol (mg/dL) Goal = less than 40 mg/dL: 51 LDL Cholesterol (mg/dL) Goal = less than 70 mg/dL: 72 Triglycerides (mg/dL) Goal = less than 150 mg/dL: 126 - Obesity Height: 5 ft 4 in Weight:: 169 lb Weight in Pounds: 169.0 lbs Weight Source: Estimated by Patient Body Mass Index (BMI): 29.0 - Physical Inactivity Physical Inactivity: Recreational activity - WALKING, PHYSICALLY ACTIVE LEFESTYLE. - Risk Stratification Risk Guidelines: Lowest Risk: Risk Factor for Smoking, Risk Factor for Dyslipidemia, Risk Factor for Diabetes, Risk Factor for Obesity, Risk Factor for Hypertension, Risk Factor for Sedentary Lifestyle, Risk Factor for Depression - For Smoking Smoking Risk Guidelines: Smoking Low Risk: None or quit greater than 6 months ago. Smoking Moderate Risk: Smoker or quit 6 months or less ago. Smoking High Risk: Smoker - For Dyslipidemia Dyslipidemia Risk Guidelines: Low Risk: Moderate Risk: High Risk: 15-25% fat 25.1-29% fat >/= 30% fat. <7% sat fat 7-9% sat fat >9% sat fat. <150 mg chol 150-299 mg chol >/= 300 mg chol. LDL <100 LDL 100-129 LDL >/= 130. Chol/HDL ratio <5.0 Chol/HDL ratio 5.0-6.0 Chol/HDL ratio >6.0. Triglycerides <100 Triglycerides 100-149 Triglycerides >/= 150 - For Diabetes Mellitus Diabetes Risk Guidelines: Diabetes Low Risk: HgA1c <6.5% and/or FBG <120. Diabetes Moderate Risk: HgA1c 6.6-7.9% and/or FBG 120-180. Diabetes High Risk: HgA1c >/= 8% and/or FBG >180 - For Obesity/Overweight Obesity/Overweight Risk Guidelines: Obesity Low Risk: BMI <25.0. Obesity Moderate Risk: BMI 25-29.9. Obesity High Risk: BMI >/= 30.0 - For Hypertension Hypertension Risk Guidelines: Hypertension Low Risk: Systolic <120 and Diastolic <80. Hypertension Moderate Risk: Systolic 120-139 and Diastolic 80-89. Hypertension High Risk: Systolic >/= 140 and Diastolic >/= 90 - For Sedentary Lifestyle Sedentary Lifestyle Risk Guidelines: Sedentary Lifestyle Low Risk: >/= 1,500 kcal/week. Sedentary Lifestyle Moderate Risk: 700-1,499 kcal/week. Sedentary Lifestyle High Risk: < 700 kcal/week - For Depression Depression Risk Guidelines: Depression Low Risk: Not clinically depressed. Depression Moderate Risk: Mildly depressed. Depression High Risk: Clinically depressed - Family History Family History: Family History (Last Reviewed 01/07/19 @ 15:13 by Sameer Pagan MD) Brother CAD (coronary artery disease) Brother CAD (coronary artery disease) Brother CAD (coronary artery disease) Brother CAD (coronary artery disease) Sister Hypertension CAD (coronary artery disease) Other Colon cancer Motivation - Motivation to Participate On a scale of 1 to 10, how prepared are you to commit to attending program?: 10 What do you see as barriers to successfully being able to complete the program?: none What do you see as the benefits of succesfully completing the program? In other words, what do you hope to get out of participating in the program?: getting back to normal activities, verify can resume regular exercise Are there issues you are dealing with that will interfere with completing the program?: none Do you have a spouse or signficant other, family or friends who will help support you to complete the program?: yes.
--- NOTE | 2019-02-25 08:22 | PCM.CR.ITP ---
General Information - General Information Admitting Diagnosis: PCI W/CORONARY STENT - Education/Goals Barriers to Learning: Vision Impairment Individual Counseling: Initial Assessment: Abnormal Cholesterol Levels, High Blood Pressure Cardiac Rehabilitation Goals: 1. Maintain the individual as the primary focus of care. 2. To improve the patient's quality of life. 3. Identification of cardiac risk factors and provide cardiac risk factor management. 4. Enhance the psychosocial status of the patient. 5. Reconditioning enough to allow the patient to resume customary activities. 6. Control symptoms of cardiac disease Scale for measuring improvement of personal goals: Enter appropriate number in Comments. 2 = Unchanged. 3 = Slightly Better. 4 = Moderate Improvement. 5 = Met my Goal Personal Goals: Initial Assessment: Improve energy level, Participate in home exercise program, Improve muscle strength and endurance, Improve diet and eating habits (eat healthier), Control risk factors (learn risk factor modification) Exercise - Initial Assessment - Visit Date of Eval: 02/25/19 Session #:: 0 - INTIAL EVALUATION - Stages of Change Stages of Change:: Action - Stress Test Date: 01/27/19 HR (bpm):: 117 MET LEVEL:: 6.0 Blood Pressure: 160/92 - Physician Prescribed Exercise Modalities: Treadmill, Rower, Airdyne Frequency (days/week): 2x/week for 18 weeks [36 sessions] Duration (Minutes):: 30-45 Intensity: 60-80% age predicted maximum heart rate reserve METs - Progression: 0.5-1.0 MET, RPE 11-14 WEEK: 3.5 Target Heart Rate:: 99-130 - Hypertension Do any of the following apply?: Yes, Medication, Diet Resting Blood Pressure:: 120/78 - Intervention Home Exercise/Activity Goal:: Moderate Exercise 30 min/day x 5 days/wk - Education Goals:: Warm-up, RPE SAYDA Scale, S/S, Safe Exercise, Self-Monitoring - Exercise Program Goals Exercise Program Goals: Aerobic Activity >30 min Nutrition - Initial Assessment - Program Goals Nutrition Program Goals: LDL <70. Total Cholesterol <200. HDL >45. Triglycerides <150. HgbA1C <7%. BMI <25 - Visit Date of Assessment:: 02/25/19 - Stages of Change Stages of Change:: Action - Lipids HDL Cholesterol (mg/dL) Goal = less than 45 mg/dL: 51 LDL Cholesterol (mg/dL) Goal = less than 70 mg/dL: 72 Triglycerides (mg/dL) Goal = less than 150 mg/dL: 126 - Diabetes Diabetes:: No - Weight Management Height: 5 ft 4 in Weight:: 169 lb Body Fat %:: 29 - Intervention Referral to dietitian:: No Referral to Diabetic Clinic:: No Will attend diet classes:: Yes - Education Gave educational materials for:: Healthy eating Tobacco - Initial Assessment - Program Goals Tobacco Program Goals: Complete smoking cessation. Attend education classes. Improve Knowledge Test score - Stage of Change Stages of Change:: Action - Learning Barriers Learning Barriers: Vision, Ready to Learn - Family Support Do you have family support?: Yes - Tobacco Use Tobacco Use: Non-smoker Do you use smokeless tobacco?: No - Intervention Smoking Cessation Referral:: No Education Schedule Given:: Yes - Education Attended class for:: Treating Heart Disease, How The Heart Works, What it means to have Heart Disease, How Coronary Artery Disease is Diagnosed, Heart Procedures, What Heart Medications Do, Risk Factors & Modifications, Living an Active Life, Nutrition, Emotions & Heart Disease, Stress Management & Relaxation, Sleep Disorders & Heart Disease Psychosocial - Initial Assess - Target Goals Target Goals: Assess presence or absence of depression. Using a valid screening tool, maximizes coping skills. Positive support system - Stages of Change Stages of Change:: Action - Psychosocial Test Tool Used:: HANDS Depression Questionnaire - Intervention PS - Interventions: Yes Attend Stress Management Classes, Yes Uses Stress Management Skills, No Referral to Mental Health, No Referral to [facility] Case Management, No Referral to Physician - Education Gave educational materials for:: Coping techniques, Signs & symptoms of depression, Stress management, Relaxation techniques - Patient/Program Goal Preventative Medication(s):: Aspirin, DOLLY inhibitor, Clopidogrel, Beta jana, Statin/lipid - PATIENT REPORTS TAKING MEDICATIONS PRESCRIBED WITHOUT ISSUES - Assistive Devices Assistive Devices:: None Fall Risk Assessed:: Yes Patient Health Questionnaire Initial Assessment 1. Little interest or pleasure in doing things: Not at all 2. Feeling down, depressed, or hopeless: Several days 3. Trouble falling or staying asleep, or sleeping too much: Nearly every day 4. Feeling tired or having little energy: Several days 5. Poor appetite or overeating: Not at all 6. Feeling bad about yourself -- or that you are a failure or have let yourself or your family down: Not at all 7. Trouble concentrating on things, such as reading the newspaper or watching television: Not at all 8. Moving or speaking so slowly that other people could have noticed. Or the opposite - being so fidgety or restless that you have been moving around a lot more than usual: Not at all 9. Thoughts that you would be better off , or of hurting yourself in some way: Not at all How difficult have these problems made it for you to do your work, take care of things at home, or get along with other people?: Somewhat difficult Total Score: 5 JOSHUA-Q SV Test - Statements CAD is a disease of the arteries in the heart: False Examples of risk factors for heart disease: True Angina is chest pain or discomfort: True The benefits of resistance training include: True Eating more meat and dairy products: False Anti-platelet medications such as aspirin are important: True The only effective way to manage stress: False An exercise warm-up slowly increases heart rate: True Prepared, processed foods usually have high sodium: True Depression is common after a heart attack: True The statin medications lower cholesterol: True To control blood pressure, lower the amount of sodium: I Don't Know If someone gets chest discomfort during walking: False Transfats are partially hydrogenated vegetable oils: True Sleep apnea that is not treated increases the risk: False To control cholesterol, one should become a vegetarian: I Don't Know Someone knows if he/she is exercising at the right level: True Diabetes cannot be prevented with exercise & health eating: I Don't Know Stress is a large risk for heart attack: True A diet that can help lower blood pressure is rich in: True - Total Score Total Correct Responses: 17 Self-Efficacy Initial Assessment We would like to know how confident you are in doing certain activities. Please select your confidence level for:: Select your confidence level for the following using the scale 1-10 where 1 is not at all confident and 10 is totally confident. Your score is the average of all 6 responses. Fatigue: How confident are you that you can keep the fatigue caused by your disease from interfering with the things you want to do? Select Number: 8 Physical Discomfort or Pain: How confident are you that you can keep the physical discomfort or pain of your disease from interfering with the things you want to do? Select Number: 8 Emotional Distress: How confident are you that you can keep the emotional distress caused by your disease from interfering with the things you want to do? Select Number: 9 Other Symptoms or Health Problems: How confident are you that you can keep other symptoms or health problems from interfering with the things you want to do? Select Number: 8 Different Tasks and Activities: How confident are you that you can do the different tasks and activities needed to manage your health condition so as to reduce your need to see a doctor? Select Number: 8 Medication: How confident are you that you can do things other than just taking medication to reduce how much your illness affects your everyday life? Select Number: 9 Total Score:: 8 Nutrition Survey - Nutrition Survey Instructions Scoring Instructions: Scoring is as follows: Yes = 1 points. No = 0 point. Patient score that is >/=12 is considered to be at potential nutritional risk and could benefit from a referral to a registered dietitian. - Nutrition Survey Initial Have you lost >10 lbs over the past 2 months without trying?: No Are you following a special diet at home for diabetes, low fat, or low salt?: No Are you interested in meeting with a dietitian for help understanding your diet?: Yes Do you eat less than 3 meals a day?: No Do you eat fatty meats (garcia, sausage, ribs, etc), fried foods, desserts, large amounts of salad dressings, margarine, butter, or cheese most days?: Yes Do you have food allergies? [Enter types in comment field]: Yes Do you eat in restaurants more than 3 times a week?: Yes Do you season food with salt, seasoning salt, or garlic salt?: No Do you used canned, boxed, frozen meals, or soups, seasoning packets?: Yes - Patient is interested in meeting with a dietitian for cardiac diet tips guidelines in addtion to his overweight/weight loss due to heavy family history of cardiac disease. Total Score:: 5
[2019-02-25 08:41] VITALS: BP 120/78; PULSE 64; RESP 14; TEMP 36.6; O2SAT 96; BMI 29.0
[2019-02-25 09:05] VITALS: BP 120/78; BP 160/92
== END ==
PROVIDERS: Family Provider Family Medicine; PCP Family Medicine; Referring Provider Internal Medicine Cardiovascular Disease; Visit Provider Internal Medicine Cardiovascular Disease
DX: E78.5 Hyperlipidemia, unspecified (principal); I25.810 Atherosclerosis of coronary artery bypass graft(s) without angina pectoris

== ENCOUNTER 2019-03-21 14:15 | Outpatient (RCR) | payer MEDICARE, OTHER, SELFPAY ==
[2019-01-31 10:41] VITALS: BMI 28.8
[2019-02-25 08:41] VITALS: BMI 29.0
== END 2019-03-21 23:59 ==
LOC: CR 14:15
PROVIDERS: Family Provider Family Medicine; PCP Family Medicine; Referring Provider Internal Medicine Cardiovascular Disease; Visit Provider Internal Medicine Cardiovascular Disease
DX: I25.810 Atherosclerosis of coronary artery bypass graft(s) without angina pectoris (principal); R07.9 Chest pain, unspecified; I35.2 Nonrheumatic aortic (valve) stenosis with insufficiency; I48.0 Paroxysmal atrial fibrillation; E78.5 Hyperlipidemia, unspecified; Z95.5 Presence of coronary angioplasty implant and graft; Z95.1 Presence of aortocoronary bypass graft; Z95.2 Presence of prosthetic heart valve
CPT/HCPCS: 93798

== ENCOUNTER 2019-04-18 14:15 | Outpatient (RCR) | payer MEDICARE, OTHER, SELFPAY ==
[2019-01-31 10:41] VITALS: BMI 28.8
[2019-02-25 08:41] VITALS: BMI 29.0
--- NOTE | 2019-03-26 11:22 | PCM.CR.ITP ---
Diagnosis - General Information Admitting Diagnosis: PCI W/CORONARY STENTING Personal Learning Style:: Audio/Visual, Written Barriers to Learning: Cognitive/Learning Impairment, Cultural/Spiritual, Decreased Motivation, Emotional/Anxiety, Hearing Impairment, Language, Low Literacy, Mental Status, No Barriers, Physical Condition/Sensory Deficit, Vision Impairment Stage of change r/t lifestyle modifications:: Action Gave educational material for:: Treating Heart Disease, Emotions & Heart Disease, Stress Management & Relaxation, Sleep Disorders & Heart Disease, How The Heart Works, What it means to have Heart Disease, How Coronary Artery Disease is Diagnosed, Heart Procedures, What Heart Medications Do, Risk Factors & Modifications, Living an Active Life, Nutrition - Education/Goals Individual Counseling: Initial Assessment: Abnormal Cholesterol Levels, High Blood Pressure Cardiac Rehabilitation Goals: 1. Maintain the individual as the primary focus of care. 2. To improve the patient's quality of life. 3. Identification of cardiac risk factors and provide cardiac risk factor management. 4. Enhance the psychosocial status of the patient. 5. Reconditioning enough to allow the patient to resume customary activities. 6. Control symptoms of cardiac disease Personal Goals: Initial Assessment: Improve energy level, Participate in home exercise program, Improve knowledge of cardiac disease, Improve muscle strength and endurance, Improve diet and eating habits (eat healthier), Control risk factors (learn risk factor modification) Scale for measuring improvement of personal goals: Enter appropriate number in Comments. 2 = Unchanged. 3 = Slightly Better. 4 = Moderate Improvement. 5 = Met my Goal - Diagnosis & Disease Process Outcomes/Goals: Pt IDs own risk factors & lifestyle modifications by Session 10, Verbalizes symptoms of angina & response by session 3., Pt independently manages Plan/Interventions: Assist Pt to ID & engage in lifestyle modification to reduce CVD risk, Instruct on individual risk factors, Review symptoms of angina & emergency actions, Review secondary diagnosis & identify educational needs. 30 day Reassessments:: Progressing - Safety Referral to Physical Therapy: No Referral to [facility] Case Management: No Fall Risk Assessed:: Yes Assistive Devices:: None Exercise - 30-day Assessment - Visit Date of Eval: 03/26/19 Session #:: 12 - Physician Prescribed Exercise Modalities: Treadmill, Rower, Airdyne, NuStep Frequency: 3x/week for 12 weeks [36 sessions] Intensity: 60-80% of age predicted maximum heart rate reserve Target Heart Rate:: 99-130 Current RPE:: 12-13 Maximum Excercise HR:: 144 Resting Blood Pressure: 112/64 Maximum Exercise Blood Pressure: 158/76 EKG Type: NSR TO SINUS TACHYCARDIA WITH A RARE PVC, PAC. - Outcomes & Goals Goals:: Verbalizes understanding of THR, RPE & goal METS by session 6, Documents in home exercise log/reports 30 min aerobic 5 day/wk by DC, Demonstrates accurate pulse taking by DC - Intervention & Plan Exercise Program Goals: Instruct on personal THR & RPE, Instruct on MET level & personal MET goal, Show patient to take own pulse /validate performance until accurate - 30-day Reassessments 30 day Reassessments:: Progressing - Physical Activity Home Exercise Physical Activity - Home Exercise: Safe Exercise, Warm-up, Self-monitoring, Cool-Down, Home Exercise > 30 min Daily, Sitting Time <3 hours/daily - Outcomes & Goals Outcomes/Goals: Demonstrates correct Warm-up/exercise Cool-Down (S3) if = 2.5 METs, Verbalizes symptoms of exercise intolerance by Session 3 (S3), Demonstrate safe equipment use (S3) & follows exercise prescrition (6) - Intervention & Plan Plan/Intervention: Instruct warm-up & cool-down if exercising at > 2 METs, Instruct on symptoms of exercise intolerance & actions to take, Instruct & monitor on saf, Assess intial functional capacity & safety risk - 30-day Reassessments 30 day Reassessments:: Progressing Nutrition - 30-Day Assessment - Program Goals Nutrition Program Goals: LDL <100 optimal. 100 - 129 Near optimal. 130 - 159 Borderline High. 160 - 189 High. Total Cholesterol <200 desirable. 200 - 239 Borderline High. >/= 240 High. HDL < 40 Low >/=60 High. Triglycerides <150 desirable. <199 optimal. VlDL 5 - 40. HgbA1C <7%. BMI <25 Patient has diagnosis of Hyperlipidemia (ICD E78)?: Yes - Visit Date of Assessment:: 03/26/19 Session #:: 12 - Cholesterol/Lipids Triglycerides (mg/dL): 126 - 10/09/2018 LDL Cholesterol (mg/dL): 72 HDL Cholesterol (mg/dL): 51 Determine presence & major risk factors that modify LDL goal: Age men > 45 years; women >/= 55 years Outcomes/Goals: Pt IDs own risk factors & lifestyle modifications by Session 10, Verbalizes symptoms of angina & response by session 3., Pt independently manages Intervention/Plan: Instruct on personal lipid levels & lipid goals/NCEP guidelines, Instruct on cholesterol - Diabetes (Other Core Measures) Diabetes Type: Not Applicable - Weight Mgt (Other Care) Not Applicable: No Height: 5 ft 4 in Weight:: 167 lb 8 oz BMI: 28.7 Diagnosis Overweight/Obesity BMI> 30% ICD-10 E66: No Diagnosis High BMI/Morbid Obesity BMI> 35% ICD-10 Z68: No Outcomes/Goals: Pt sets, maintains & shows weight loss goal & trend during rehab Intervention/Plan: Instruct on ideal BMI & set weight loss goal w/patient, Assist pt to ID & incorporate diet changes for weight loss by S9, Encourage goal of using 250-300dcal per session for weight loss 30 day Reassessments:: Progressing - Healthy Eating Habits Will attend diet classes:: Yes Outcomes/Goals:: Consume diet rich in vegs,fruits,whole grain/high fiber,fish,lean meat, Limit sat/trans fats,cholesterol & added salts & sugars Intervention/Plan:: Assess current eating habits 30-day Reassessments:: Progressing - Education Gave educational materials for:: Healthy eating Medical- 30-Day Assessment - Visit Date of Eval: 03/26/19 Session #:: 12 - Medication Compliance Preventative Medication(s):: Aspirin, Ticagrelor/P2Y12 inhibitor, Statin/lipid, Beta jana H/O mental health issues: depression, anxiety, or addiction?: No Doesn?t believe in the benefits of treatment?: No Believes medications are unnecessary or harmful?: No Has a concern about medication side effects?: No Expresses concern over the cost of medications?: No Outcomes/Goals: Verbalizes medications,desired effect & common side effects @ DC, Pt self-reports following medication regimen, Keeps card in wallet w/medications listed by DC Interventions/plans: Instruct on medication effects & side effects, Review medication list w/patient every two weeks, Instruct importance of taking meds as ordered & assist problem solving 30-day Reassessments:: Progressing - Tobacco Use Tobacco Use: Non-smoker - Hypertension Resting Blood Pressure:: 112/64 [place] [employer] Hypertension Guidelines: [place] [employer] Hypertension Guidelines. Normal BP Less than 120/80. Elevated BP 120/80. Hypertension Stage 1: BP 130-139/80-89. Hypertesnion Stage 2: BP 140 or higher/90 or higher. Hypertension Crisis: BP higher than 180/120 Peak Exercise Blood Pressure:: 158/76 Outcomes/Goals: Able to verbalize/achieve optimal blood pressure <130/80, Incorporates diet changes & exercise for blood pressure control by DC Interventions/plan: Instruct on optimal blood pressure, hypertension & medications, Instruct on effects of sodium, alcohol, stress, exercise &hypertension 30 day Reassessments:: Progressing - Tobacco Cessation Referral Smoking Cessation Referral:: No Education Schedule Given:: Yes Psychosocial - 30-Day Assess - VIsit Date of Eval: 03/26/19 Session #:: 12 Not Applicable: Yes History of previous Mental disease:: No - Target Goals Target Goals: Assess presence or absence of depression. Using a valid screening tool, maximizes coping skills. Positive support system - Psychosocial Test Tool Used:: [employer] QOL Cardiac, PHQ-9 Questionnaire phq-9 Severity: Severity. 1-4 Minimal Depression. 5-9 Mild Depression. 10-14 Moderate Depression. 15-19 Moderately Sever Depression. 20-27 Severe Depression. Rule: - Referral to Behavioral Health PS - Interventions: Yes Referral to Physician if PHQ-9 if score is 5-9:, No Referral to Behavioral Health if PHQ-9 score >9:, No Referral to [facility], No Attend Stress Management Classes - Outcomes/Goals: See list Psychosocial Outcomes/Goals:: ID's personal stressors & 2 strategies to manage stress by discharge - Intervention/Plan: See List Interventions/Plan:: Assess stressors,coping strategies & signs of derpression on admission, Instruct/assist pt to develop coping & personal stress Mgt strategies, Instruct patient to recognize signs & symptoms of depression, Instruct patient to recog - 30-day Reassessments: 30 day Reassessments:: Progressing Patient Health Questionnaire 30-Day Re-eval Assessment 1. Little interest or pleasure in doing things: Not at all 2. Feeling down, depressed, or hopeless: Several days 3. Trouble falling or staying asleep, or sleeping too much: Nearly every day 4. Feeling tired or having little energy: Not at all 5. Poor appetite or overeating: Not at all 6. Feeling bad about yourself -- or that you are a failure or have let yourself or your family down: Not at all 7. Trouble concentrating on things, such as reading the newspaper or watching television: Not at all 8. Moving or speaking so slowly that other people could have noticed. Or the opposite - being so fidgety or restless that you have been moving around a lot more than usual: Not at all 9. Thoughts that you would be better off , or of hurting yourself in some way: Not at all Total Score: 4 Self-Efficacy 30-Day Re-eval Assessment We would like to know how confident you are in doing certain activities. Please select your confidence level for:: Select your confidence level for the following using the scale 1-10 where 1 is not at all confident and 10 is totally confident. Your score is the average of all 6 responses. Fatigue: How confident are you that you can keep the fatigue caused by your disease from interfering with the things you want to do? Select Number: 8 Physical Discomfort or Pain: How confident are you that you can keep the physical discomfort or pain of your disease from interfering with the things you want to do? Select Number: 9 Emotional Distress: How confident are you that you can keep the emotional distress caused by your disease from interfering with the things you want to do? Select Number: 10 Other Symptoms or Health Problems: How confident are you that you can keep other symptoms or health problems from interfering with the things you want to do? Select Number: 8 Different Tasks and Activities: How confident are you that you can do the different tasks and activities needed to manage your health condition so as to reduce your need to see a doctor? Select Number: 8 Medication: How confident are you that you can do things other than just taking medication to reduce how much your illness affects your everyday life? Select Number: 9 Total Score:: 8
[2019-03-26 11:33] VITALS: BP 112/64; BP 158/76; BMI 28.7
== END 2019-04-19 23:59 ==
LOC: CR 14:15
PROVIDERS: Family Provider Family Medicine; PCP Family Medicine; Referring Provider Internal Medicine Cardiovascular Disease; Visit Provider Internal Medicine Cardiovascular Disease
DX: I25.810 Atherosclerosis of coronary artery bypass graft(s) without angina pectoris (principal); R07.9 Chest pain, unspecified; I35.2 Nonrheumatic aortic (valve) stenosis with insufficiency; I48.0 Paroxysmal atrial fibrillation; E78.5 Hyperlipidemia, unspecified; Z95.5 Presence of coronary angioplasty implant and graft; Z95.1 Presence of aortocoronary bypass graft; Z95.2 Presence of prosthetic heart valve
CPT/HCPCS: 93798

== ENCOUNTER 2019-05-09 14:15 | Outpatient (RCR) | payer MEDICARE, OTHER, SELFPAY ==
[2019-02-25 08:41] VITALS: BMI 29.0
[2019-03-26 11:33] VITALS: BMI 28.7
[2019-04-20 00:47] VITALS: BP 112/64; BP 158/76
--- NOTE | 2019-04-25 11:12 | PCM.CR.ITP ---
Diagnosis - General Information Admitting Diagnosis: S/P PCI w/coronary stent Personal Learning Style:: Audio/Visual, Written Barriers to Learning: No Barriers Stage of change r/t lifestyle modifications:: Action Gave educational material for:: Treating Heart Disease, Emotions & Heart Disease, Stress Management & Relaxation, Sleep Disorders & Heart Disease, How The Heart Works, What it means to have Heart Disease, How Coronary Artery Disease is Diagnosed, Heart Procedures, What Heart Medications Do, Risk Factors & Modifications, Living an Active Life, Nutrition - Education/Goals Individual Counseling: Initial Assessment: Abnormal Cholesterol Levels, High Blood Pressure, Overweight/Obesity Cardiac Rehabilitation Goals: 1. Maintain the individual as the primary focus of care. 2. To improve the patient's quality of life. 3. Identification of cardiac risk factors and provide cardiac risk factor management. 4. Enhance the psychosocial status of the patient. 5. Reconditioning enough to allow the patient to resume customary activities. 6. Control symptoms of cardiac disease Personal Goals: Initial Assessment: Improve energy level, Participate in home exercise program, Get back to work, or to resume activities faster, Improve knowledge of cardiac disease, Improve muscle strength and endurance, Improve diet and eating habits (eat healthier), Control risk factors (learn risk factor modification) Scale for measuring improvement of personal goals: Enter appropriate number in Comments. 2 = Unchanged. 3 = Slightly Better. 4 = Moderate Improvement. 5 = Met my Goal - Diagnosis & Disease Process Outcomes/Goals: Pt IDs own risk factors & lifestyle modifications by Session 10, Verbalizes symptoms of angina & response by session 3., Pt independently manages Plan/Interventions: Assist Pt to ID & engage in lifestyle modification to reduce CVD risk, Instruct on individual risk factors, Review symptoms of angina & emergency actions, Other see comment 30 day Reassessments:: Progressing 30 day Reassessments:: Progressing - Safety Referral to Physical Therapy: No Referral to [facility] Case Management: No Fall Risk Assessed:: Yes Assistive Devices:: None Exercise - 60-day Assessment - Visit Date of Eval: 04/25/19 Session #:: 25 - Physician Prescribed Exercise Modalities: Treadmill, Airdyne, NuStep Frequency: 3x/week for 12 weeks [36 sessions] Intensity: 60-80% of age predicted maximum heart rate reserve Current METSs:: 9.5 Target Heart Rate:: 99-130 Current RPE:: 12-13 Maximum Excercise HR:: 150 on Airdyne Gasp [employer] Bike Resting Blood Pressure: 108/62 Maximum Exercise Blood Pressure: 160/84 - Airdyne Bike EKG Type: NSR to sinus tachycardia without ectopy. - Outcomes & Goals Goals:: Verbalizes understanding of THR, RPE & goal METS by session 6, Documents in home exercise log/reports 30 min aerobic 5 day/wk by DC, Demonstrates accurate pulse taking by DC - Intervention & Plan Exercise Program Goals: Instruct on personal THR & RPE, Instruct on MET level & personal MET goal, Show patient to take own pulse /validate performance until accurate, Instruct on home exercise - 30-day Reassessments 30 day Reassessments:: Met - Physical Activity Home Exercise Physical Activity - Home Exercise: Safe Exercise, Warm-up, Self-monitoring, Cool-Down, Home Exercise > 30 min Daily, Sitting Time <3 hours/daily - Outcomes & Goals Outcomes/Goals: Demonstrates correct Warm-up/exercise Cool-Down (S3) if = 2.5 METs, Verbalizes symptoms of exercise intolerance by Session 3 (S3), Demonstrate safe equipment use (S3) & follows exercise prescrition (6) - Intervention & Plan Plan/Intervention: Instruct warm-up & cool-down if exercising at > 2 METs, Instruct on symptoms of exercise intolerance & actions to take, Instruct & monitor on saf, Assess intial functional capacity & safety risk - 30-day Reassessments 30 day Reassessments:: Met Nutrition - 60-Day Assessment - Program Goals Nutrition Program Goals: LDL <100 optimal. 100 - 129 Near optimal. 130 - 159 Borderline High. 160 - 189 High. Total Cholesterol <200 desirable. 200 - 239 Borderline High. >/= 240 High. HDL < 40 Low >/=60 High. Triglycerides <150 desirable. <199 optimal. VlDL 5 - 40. HgbA1C <7%. BMI <25 Patient has diagnosis of Hyperlipidemia (ICD E78)?: Yes - Visit Date of Assessment:: 04/25/19 Session #:: 25 - Cholesterol/Lipids Triglycerides (mg/dL): 126 - 10/09/2018 Total Cholesterol (mg/dL): 72 LDL Cholesterol (mg/dL): 51 Determine presence & major risk factors that modify LDL goal: Hypertension or hypertensive medication, Age men > 45 years; women >/= 55 years Outcomes/Goals: Pt IDs own risk factors & lifestyle modifications by Session 10, Verbalizes symptoms of angina & response by session 3., Pt independently manages Intervention/Plan: Instruct on personal lipid levels & lipid goals/NCEP guidelines, Instruct on cholesterol Referral to dietitian:: Yes 30-day Reassessments:: Progressing - Diabetes (Other Core Measures) Diabetes Type: Not Applicable - Weight Mgt (Other Care) Not Applicable: Yes Height: 5 ft 4 in Weight:: 169 lb BMI: 29.0 Diagnosis Overweight/Obesity BMI> 30% ICD-10 E66: No Diagnosis High BMI/Morbid Obesity BMI> 35% ICD-10 Z68: No Intervention/Plan: Instruct on ideal BMI & set weight loss goal w/patient, Assist pt to ID & incorporate diet changes for weight loss by S9, Encourage goal of using 250-300dcal per session for weight loss 30 day Reassessments:: Progressing - Healthy Eating Habits Will attend diet classes:: Yes Outcomes/Goals:: Consume diet rich in vegs,fruits,whole grain/high fiber,fish,lean meat, Limit sat/trans fats,cholesterol & added salts & sugars Intervention/Plan:: Assess current eating habits 30-day Reassessments:: Progressing - Education Gave educational materials for:: Healthy eating Medical- 60-Day Assessment - Visit Date of Eval: 04/25/19 Session #:: 25 - Medication Compliance Preventative Medication(s):: Aspirin, Ticagrelor/P2Y12 inhibitor, Statin/lipid, Beta jana H/O mental health issues: depression, anxiety, or addiction?: No Doesn?t believe in the benefits of treatment?: No Believes medications are unnecessary or harmful?: No Has a concern about medication side effects?: No Expresses concern over the cost of medications?: No Outcomes/Goals: Verbalizes medications,desired effect & common side effects @ DC, Pt self-reports following medication regimen, Keeps card in wallet w/medications listed by DC Interventions/plans: Instruct on medication effects & side effects, Review medication list w/patient every two weeks, Instruct importance of taking meds as ordered & assist problem solving 30-day Reassessments:: Progressing - Tobacco Use Tobacco Use: Non-smoker - Hypertension Hypertension Diagnosis:: Hypertension ICD-10 I10 Resting Blood Pressure:: 108/62 [place] [employer] Hypertension Guidelines: [place] [employer] Hypertension Guidelines. Normal BP Less than 120/80. Elevated BP 120/80. Hypertension Stage 1: BP 130-139/80-89. Hypertesnion Stage 2: BP 140 or higher/90 or higher. Hypertension Crisis: BP higher than 180/120 Peak Exercise Blood Pressure:: 160/84 Outcomes/Goals: Able to verbalize/achieve optimal blood pressure <130/80, Incorporates diet changes & exercise for blood pressure control by DC Interventions/plan: Instruct on optimal blood pressure, hypertension & medications, Instruct on effects of sodium, alcohol, stress, exercise &hypertension 30 day Reassessments:: Progressing - Tobacco Cessation Referral Smoking Cessation Referral:: No Individual Education/Counseling:: No Education Schedule Given:: Yes Psychosocial - 60-Day Assess - VIsit Date of Eval: 04/25/19 Session #:: 25 Not Applicable: Yes History of previous Mental disease:: No - Target Goals Target Goals: Assess presence or absence of depression. Using a valid screening tool, maximizes coping skills. Positive support system - Psychosocial Test Tool Used:: [employer] QOL Cardiac, PHQ-9 Questionnaire phq-9 Severity: Severity. 1-4 Minimal Depression. 5-9 Mild Depression. 10-14 Moderate Depression. 15-19 Moderately Sever Depression. 20-27 Severe Depression. Rule: - Referral to Behavioral Health PS - Interventions: Yes Attend Stress Management Classes, No Referral to Behavioral Health if PHQ-9 score >9:, No Referral to [facility], No Referral to Physician if PHQ-9 if score is 5-9: - Outcomes/Goals: See list Psychosocial Outcomes/Goals:: ID's personal stressors & 2 strategies to manage stress by discharge - Intervention/Plan: See List Interventions/Plan:: Assess stressors,coping strategies & signs of derpression on admission, Instruct/assist pt to develop coping & personal stress Mgt strategies, Instruct patient to recognize signs & symptoms of depression, Instruct patient to recog - 30-day Reassessments: 30 day Reassessments:: Progressing Patient Health Questionnaire 60-Day Re-eval Assessment 1. Little interest or pleasure in doing things: Not at all 2. Feeling down, depressed, or hopeless: Not at all 3. Trouble falling or staying asleep, or sleeping too much: Several days 4. Feeling tired or having little energy: Not at all 5. Poor appetite or overeating: Not at all 6. Feeling bad about yourself -- or that you are a failure or have let yourself or your family down: Not at all 7. Trouble concentrating on things, such as reading the newspaper or watching television: Not at all 8. Moving or speaking so slowly that other people could have noticed. Or the opposite - being so fidgety or restless that you have been moving around a lot more than usual: Not at all 9. Thoughts that you would be better off , or of hurting yourself in some way: Not at all Total Score: 1 Self-Efficacy 60-Day Re-eval Assessment We would like to know how confident you are in doing certain activities. Please select your confidence level for:: Select your confidence level for the following using the scale 1-10 where 1 is not at all confident and 10 is totally confident. Your score is the average of all 6 responses. Fatigue: How confident are you that you can keep the fatigue caused by your disease from interfering with the things you want to do? Select Number: 10 Physical Discomfort or Pain: How confident are you that you can keep the physical discomfort or pain of your disease from interfering with the things you want to do? Select Number: 10 Emotional Distress: How confident are you that you can keep the emotional distress caused by your disease from interfering with the things you want to do? Select Number: 10 Other Symptoms or Health Problems: How confident are you that you can keep other symptoms or health problems from interfering with the things you want to do? Select Number: 10 Different Tasks and Activities: How confident are you that you can do the different tasks and activities needed to manage your health condition so as to reduce your need to see a doctor? Select Number: 10 Medication: How confident are you that you can do things other than just taking medication to reduce how much your illness affects your everyday life? Select Number: 10 Total Score:: 10
[2019-04-25 11:23] VITALS: BP 108/62; BP 160/84; BMI 29.0
== END 2019-05-12 14:15 | disposition home or self-care (01) ==
LOC: CR 14:15
PROVIDERS: Family Provider Family Medicine; PCP Family Medicine; Referring Provider Internal Medicine Cardiovascular Disease; Visit Provider Internal Medicine Cardiovascular Disease
DX: I25.810 Atherosclerosis of coronary artery bypass graft(s) without angina pectoris (principal); R07.9 Chest pain, unspecified; I35.2 Nonrheumatic aortic (valve) stenosis with insufficiency; I48.0 Paroxysmal atrial fibrillation; E78.5 Hyperlipidemia, unspecified; Z95.5 Presence of coronary angioplasty implant and graft; Z95.1 Presence of aortocoronary bypass graft; Z95.2 Presence of prosthetic heart valve
CPT/HCPCS: 93798

== ENCOUNTER → 2019-08-15 09:33 | Outpatient (CLI) | payer MEDICARE, OTHER, SELFPAY ==
[2019-04-25 11:23] VITALS: BMI 29.0
[2019-05-07 13:05] VITALS: BMI 28.6
[2019-08-15 10:06] LABS: Absolute Lymphocyte Count 1.57 X10^3/uL (0.83-4.51); Absolute Neutrophil Count 3.5 X10^3/uL (2.0-7.7); Basophil# 0.05 X10^3/uL; Basophil% 0.8 % (0-1); Eosinophil# 0.32 X10^3/uL; Eosinophils% 5.2 % (0-5); Hematocrit 44.2 % (40-54); Hemoglobin 14.7 g/dL (13.0-16.5); Lymphocyte # 1.57 X10^3/ul (4.0); Lymphocyte % 25.7 % (19-41); Mean Corp Hgb Conc 33.3 g/dL (32-36); Mean Corpuscular Hgb 30.1 pg (27.0-32.0); Mean Corpuscular Volume 90.6 fL (80-94); Mean Platelet Vol. 9.9 fl (6.2-12.0); Monocyte# 0.64 X10^3/uL; Monocyte% 10.5 % (0-10); NRBC Flagged by Analyzer 0 % (0-5); Neutrophil # 3.53 X10^3/uL (2.7-7.7); Neutrophil % 57.6 % (47-70); Platelet Count 212 K/mm3 (150-450); RBC Distribution Width CV 13.2 % (11.6-14.6); RBC Distribution Width SD 43.2 fl (35.1-43.9); Red Blood Count 4.88 M/mm3 (4.6-6.2); White Blood Count 6.1 K/mm3 (4.4-11.0)
[2019-08-15 10:37] LABS: AST(SGOT) 24 U/L (15-37); Alanine Aminotransfer ALT/SGPT 31 U/L (16-61); Albumin, Serum 3.6 g/dL (3.2-5.0); Alkaline Phosphatase 113 U/L (45-117); Anion Gap 4 (5-15); BUN 21 mg/dL (7-18); BUN/Creat Ratio 18.9 RATIO (10-20); Calcium,Total 8.9 mg/dL (8.5-10.1); Chloride 106 mmol/L (98-107); Cholesterol 157 mg/dL (200); Creatinine, Serum 1.11 mg/dL (0.70-1.30); EST Glomerular Filtration Rate 70 mL/min (>60); Est Glom Filt Rate - Afr Amer 85 mL/min (>60); Globulin 3.6 g/dL (2.2-4.2); Glucose 94 mg/dL (74-106); High Density Lipoprotein 46 mg/dL; PSA,Total- Diagnostic 4.35 ng/mL (0.0-4.0); Potassium 4.1 mmol/L (3.5-5.1); Protein, Total 7.2 g/dL (6.4-8.2); Sodium Level 139 mmol/L (136-145); Triglycerides 144 mg/dL; Very Low Density Lipoprotein 29 mg/dL (5-40)
== END ==
PROVIDERS: PCP Family Medicine; Referring Provider Family Medicine; Visit Provider Family Medicine
DX: I25.10 Atherosclerotic heart disease of native coronary artery without angina pectoris (principal); E78.00 Pure hypercholesterolemia, unspecified; N40.0 Benign prostatic hyperplasia without lower urinary tract symptoms
CPT/HCPCS: 36415; 80053; 80061; 84153; 85025

== ENCOUNTER → 2019-12-17 07:53 | Outpatient (CLI) | payer MEDICARE, OTHER, SELFPAY ==
[2019-04-25 11:23] VITALS: BMI 29.0
[2019-11-13 15:03] VITALS: BMI 28.5
--- NOTE | 2019-12-17 07:54 | ECHOD_ITS ---
Reason For Study: Valve Replacement Eval Procedure This was a 2D Doppler, Color Flow transthoracic echocardiogram. Exam performed in department. Left Ventricle Normal LV size. Left ventricular systolic function is normal. The estimated ejection fraction is 60 %. Stage 1 diastolic dysfunction. No regional wall motion abnormalities noted. Right Ventricle Normal RV size. Normal systolic function. Atria Normal left atrium. Normal right atrium. Mitral Valve Normal mitral valve. Tricuspid Valve Normal tricuspid valve. Mild tricuspid valve insufficiency. Pulmonary artery systolic pressure is 24 mmHg. Aortic Valve Peak aortic valve gradient 16 mmHg. Mean aortic valve gradient 7 mmHg. Bioprosthetic aortic valve. Pericardium/Pleural No pericardial effusion. MMode/2D Measurements & Calculations LVIDd: 4.3 cm IVSd: 1.4 cm LVOT diam: 2.0 cm LVIDs: 2.7 cm LVPWd: 1.1 cm LVOT area: 3.1 cm2 FS: 36.0 % LA dimension: 4.3 cm LAV(MOD-bp): 53.0 ml LA A4 area: 18.1 cm2 LAV(MOD-bp) Indexed: 29.0 ml/m2 LAV(MOD-sp2): 48.6 ml LAV(MOD-sp4): 50.4 ml RA A4 area: 17.9 cm2 Time Measurements MV dec time: 0.36 sec Doppler Measurements & Calculations MV E max severiano: 53.7 cm/sec Lat Peak E' Severiano: 9.1 cm/sec Med Peak E' Severiano: 7.0 cm/sec MV A max severiano: 83.0 cm/sec E/E' lat: 5.9 E/E' med: 7.7 MV E/A: 0.65 MV V2 max: 88.3 cm/sec MV P1/2t max severiano: 68.7 cm/sec Ao V2 max: 201.3 cm/sec MV max P.1 mmHg MV P1/2t: 89.6 msec Ao max P.2 mmHg MV V2 mean: 39.4 cm/sec Ao V2 mean: 122.5 cm/sec MV mean P.76 mmHg MV dec slope: 224.6 cm/sec2 Ao mean P.3 mmHg MV V2 VTI: 27.3 cm MVA(P1/2t): 2.5 cm2 Ao V2 VTI: 38.7 cm MVA(VTI): 3.8 cm2 LISBET(I,D): 2.7 cm2 LISBET(V,D): 2.4 cm2 LV V1 max: 152.9 cm/sec SV(LVOT): 105.1 ml PA V2 max: 122.3 cm/sec LV V1 max P.4 mmHg LV V1 mean P.9 mmHg LV V1 mean: 102.0 cm/sec LV V1 VTI: 33.7 cm TR max severiano: 225.7 cm/sec TR max P.4 mmHg Interpretation Summary Normal LV size. Left ventricular systolic function is normal. The estimated ejection fraction is 60 %. Stage 1 diastolic dysfunction. Mean aortic valve gradient 7 mmHg. Ordering Physician: Sameer Guzman Referring Physician: Gianni Brooks Performed By: Kennedy Booth RCS
[2019-12-17 10:26] LABS: Hematocrit 44.7 % (40-54); Hemoglobin 14.6 g/dL (13.0-16.5); Mean Corp Hgb Conc 32.7 g/dL (32-36); Mean Corpuscular Hgb 28.9 pg (27.0-32.0); Mean Corpuscular Volume 88.5 fL (80-94); Mean Platelet Vol. 10.2 fl (6.2-12.0); Platelet Count 201 K/mm3 (150-450); RBC Distribution Width CV 13.2 % (11.6-14.6); RBC Distribution Width SD 42.6 fl (35.1-43.9); Red Blood Count 5.05 M/mm3 (4.6-6.2)
[2019-12-17 10:56] LABS: AST(SGOT) 19 U/L (15-37); Alanine Aminotransfer ALT/SGPT 27 U/L (16-61); Albumin, Serum 3.5 g/dL (3.2-5.0); Alkaline Phosphatase 103 U/L (45-117); Anion Gap 5 (5-15); BUN 19 mg/dL (7-18); BUN/Creat Ratio 17.9 RATIO (10-20); Calcium,Total 8.6 mg/dL (8.5-10.1); Chloride 105 mmol/L (98-107); Cholesterol 143 mg/dL (200); Creatinine, Serum 1.06 mg/dL (0.70-1.30); EST Glomerular Filtration Rate 74 mL/min (>60); Est Glom Filt Rate - Afr Amer 89 mL/min (>60); Globulin 3.4 g/dL (2.2-4.2); Glucose 81 mg/dL (74-106); High Density Lipoprotein 48 mg/dL; Potassium 3.9 mmol/L (3.5-5.1); Protein, Total 6.9 g/dL (6.4-8.2); Sodium Level 139 mmol/L (136-145); Triglycerides 121 mg/dL; Very Low Density Lipoprotein 24 mg/dL (5-40)
== END ==
PROVIDERS: PCP Family Medicine; Referring Provider Internal Medicine Cardiovascular Disease; Visit Provider Internal Medicine Cardiovascular Disease
DX: I25.810 Atherosclerosis of coronary artery bypass graft(s) without angina pectoris (principal); E78.00 Pure hypercholesterolemia, unspecified; Z95.1 Presence of aortocoronary bypass graft
CPT/HCPCS: 36415; 80048; 80061; 80076; 85027; 93306

== ENCOUNTER 2020-01-19 08:58 | Day surgery (SDC) | payer MEDICARE, OTHER, SELFPAY ==
[2019-04-25 11:23] VITALS: BMI 29.0
[2019-11-13 15:03] VITALS: BMI 28.5
[2020-01-09 08:45] VITALS: BMI 28.5
--- NOTE | 2020-01-09 09:00 | RAD_ITS ---
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 COMPARISON: 12/06/2018 FINDINGS: Status post median sternotomy and heart valve replacement. The lungs are clear and expanded. There is no demonstrated pleural abnormality. Normal size heart. Normal mediastinum and isabelle. Normal visualized pulmonary arteries. Normal visualized aortic arch and descending thoracic aorta. Normal visualized thoracic spine. Normal visualized ribs, clavicles, and shoulders. There is no demonstrated abnormality of the visualized soft tissue structures of the upper abdomen. RAD/Chest PA and Lateral IMPRESSION: No active disease. Electronically Signed: Monroe Cochran MD at 17:36 EST Tel , Service support ,
[2020-01-19] VITALS (20 sets, daily range): BP systolic 121–155; BP diastolic 75–92; PULSE 62–79; RESP 14–20; TEMP 36.7–36.9; O2SAT 96–100; BMI 28.5
[2020-01-19 09:12] LABS: Hematocrit 45.5 % (40-54); Hemoglobin 15.2 g/dL (13.0-16.5); Mean Corp Hgb Conc 33.4 g/dL (32-36); Mean Corpuscular Hgb 29.7 pg (27.0-32.0); Mean Platelet Vol. 9.8 fl (6.2-12.0); Platelet Count 208 K/mm3 (150-450); RBC Distribution Width CV 13.2 % (11.6-14.6); RBC Distribution Width SD 42.9 fl (35.1-43.9); Red Blood Count 5.11 M/mm3 (4.6-6.2); White Blood Count 6.9 K/mm3 (4.4-11.0)
[2020-01-19 09:25] LABS: Anion Gap 1 (5-15); BUN 18 mg/dL (7-18); BUN/Creat Ratio 16.8 RATIO (10-20); Calcium,Total 9.1 mg/dL (8.5-10.1); Chloride 108 mmol/L (98-107); Creatinine, Serum 1.07 mg/dL (0.70-1.30); EST Glomerular Filtration Rate 73 mL/min (>60); Est Glom Filt Rate - Afr Amer 88 mL/min (>60); Estimated Creatinine Clearance 55.33 ml/min; Glucose 97 mg/dL (74-106); Potassium 4.2 mmol/L (3.5-5.1); Sodium Level 139 mmol/L (136-145)
--- NOTE | 2020-01-19 10:10 | CON.PCM_ITS ---
Reason for Consult Date of Consultation: 01/19/20 Reason for Consultation: Chest discomfort History of Present Illness: The patient is a 69 year old M with a history of coronary artery disease status post coronary artery bypass surgery remotely in 2010 with a saphenous vein graft to the LAD, saphenous vein graft to the OM and saphenous vein graft to the right posterior descending artery. He also had an aortic valve replacement in 1995 and is subsequent TAVR in April 2018. He had undergone PCI with a drug-eluting stent to the mid saphenous vein graft to the obtuse marginal branch with a Synergy stent in November 2017 and a PCI to the distal left main and ostial circumflex artery which a 3.0 x 24 mm drug eluding Synergy stent in January 2019. The saphenous vein graft to the mid circumflex artery was occluded and that is why he underwent PCI of the proximal circumflex artery. He had been doing well but more recently realized that his exercise capacity had diminished further. It was therefore thought that he may be having restenosis. He also has a history of hyperlipidemia, and paroxysmal atrial fibrillation. He has not had any recent stress testing. [] Past Medical History Allergies/Adverse Reactions: Allergies carrot Allergy (Verified 05/07/19 13:04) Itching AZERI FOODS Adverse Reaction (Uncoded 02/25/19 08:30) Hives Home Medications: Ambulatory Orders Medication Instructions Recorded cetirizine 10 mg tablet 5 mg PO QDAY PRN 02/07/17 nitroglycerin 0.4 mg sublingual 0.4 mg SUBLINGUAL Q5-15M PRN #25 09/24/17 tablet tab aspirin 81 mg tablet,delayed 81 mg PO DAILY@0800 #90 tab 12/04/17 release multivitamin with folic acid 400 1 tab PO DAILY 01/07/19 mcg tablet atorvastatin 80 mg tablet 80 mg PO QHS #90 tab 02/17/19 ticagrelor 90 mg tablet 90 mg PO BID #60 tab 02/17/19 albuterol sulfate 90 mcg/actuation 1 dose INHALATION DAILY 11/13/19 aerosol inhaler Metoprolol Succinate [Toprol Xl] 12.5 mg PO DAILY 01/09/20 Past Medical History (Chronic Problems): Chronic Problems (Last Reviewed 11/13/19 @ 15:04 by Eri Chacon) Atherosclerosis of coronary artery bypass graft without angina pectoris (Chronic) Nonrheumatic aortic (valve) stenosis with insufficiency (Chronic) Hyperlipidemia (Chronic) Surgical History: - - replacement of aortiv valve Psychiatric History: No pertinent psych hx - *Family History Maternal Family History: Family History (Last Reviewed 11/13/19 @ 15:04 by Eri Chacon) Brother CAD (coronary artery disease) Brother CAD (coronary artery disease) Brother CAD (coronary artery disease) Brother CAD (coronary artery disease) Sister Hypertension CAD (coronary artery disease) Other Colon cancer History Items: Unknown Smoking Status: Never smoker Review of Systems - Review of Systems General: Denies: Fever, Fatigue, Night Sweats HEENT: Denies: Vision Change Cardiovascular: Reports: Chest Discomfort, Chest Discomfort with Exertion, Shortness of Breath with Exertion. Denies: Shortness of Breath, Orthopnea, PND, Peripheral Edema, Palpitations, Lightheadedness, Dizziness, Near Syncope, Syncope Respiratory: Denies: Cough, Sputum Production, Hemoptysis Gastrointestinal: Denies: Hematemesis, Hematochezia, Melena Genitourinary: Denies: Dysuria, Hematuria Muscoloskeletal: Denies: Myalgias Skin: Denies: Rash Neurological: Denies: Dizziness Psychiatric: Denies: Anxiety Subjectve: Pleasant gentleman in no distress Objective: Weight: 166 lb 9 oz Body Mass Index (BMI) 28.5 Finger Stick Blood Glucose 136 General: Awake, Alert, Oriented x 3 HEENT: PERRL, EOMI, Sclera Non Icteric Neck: Supple, Good ROM, No Lymph Node Enlargement Lungs: Clear to auscultation Cardiovascular: Regular Rhythm, Normal S1, Normal S2, No Murmurs, No Rubs, No Gallops 01/19/20 09:02: WBC 6.9, RBC 5.11, Hgb 15.2, Hct 45.5, MCV 89.0, MCH 29.7, MCHC 33.4, Plt Count 208, MPV 9.8 01/19/20 09:02: Sodium 139, Potassium 4.2, Chloride 108 H, Carbon Dioxide 30.0, Anion Gap 1 L, BUN 18, Creatinine 1.07, Est GFR (MDRD) Af Amer 88, Est GFR (MDRD) Non-Af 73, BUN/Creatinine Ratio 16.8, Glucose 97, Calcium 9.1 Rhythm: EKG: ECHO: Stress Test: Cardiac Cath: PCI: CT Surgery: Holter monitor: EPS: PPM: CXR: Chest CT Scan: Assessment/Plan 1. Anginal equivalent * Patient presents with shortness of breath with exertion which is likely secondary to his anginal equivalent. His last catheterization was a year ago during which he underwent angioplasty and stenting. It would prudent to reevaluate the above with a cardiac catheterization. The risk benefits alternatives of been explained to him he understands and agrees to proceed. * 2. Status post coronary bypass surgery * As noted above patient is status post coronary bypass surgery. 2 of his bypass grafts are noted to be patent to the LAD as well as the posterior descending artery. The saphenous vein graft to the circumflex artery is occluded. * 3. Status post TAVR * He appears to be stable with respect to the above. I would not recommend that we make any changes. * * Thank you for allowing me to participate in the care of your patient. Please don't hesitate to call if any issues arise.
--- NOTE | 2020-01-19 11:28 | CL.D_ITS ---
Patient Name: CHLOE WILCOX Study Date: 01/19/2020 Performing: Sameer Guzman MD Ht: 64.17 inches 163 cm : 1950 Wt: 167.55 lbs 76 kg Age: 69 Gender: male BSA: 1.82 PROCEDURE(S) PERFORMED [id number]/COR/CABG CLINICAL PROFILE AND INDICATIONS Indications: Worsening Angina Heart Failure: None Stress/Imaging Stress/Image Study Performed: No CAD Presentations: Unstable angina. CONCLUSIONS Status post status post TAVR with mild perivalvular leak.Status post status post TAVR with mild periv alvular leak. Calcified dilated aortic root Saphenous vein graft to the right coronary artery which is totally occluded. Saphenous vein graft to the circumflex artery which was previously occluded. Saphenous vein graft to the left anterior descending artery with proximal 80% lesion and mid 70% lesi on and mild distal [place] vessel disease. Calcified left main coronary artery with mild disease. Left anterior descending artery totally occluded in the midsegment. Left circumflex artery previously stented with 95% in-stent stenosis First obtuse marginal branch with 80 to 90% stenosis noted RECOMMENDATIONS Referral for PCI Referral for PCI DESCRIPTION OF PROCEDURE The patient arrived to the procedure lab. The risks and benefits of the procedure as well as a full d escription of our services here and current unavailability of surgical backup were fully explained to the patient and/or their significant other prior to the catheterization. The Timeout was completed, verifying the correct patient and procedure. The patient's procedural site was prepped and draped in the usual fashion. Local anesthetic was given subcutaneously to right radial region with Lidocaine 2% . Using a modified Seldinger technique, arterial access was obtained via the right radial artery, a 6 Fr sheath was inserted. Left Coronary Artery selective angiography was performed in multiple views u sing a 5 Fr. 4.0 [place] catheter. Saphenous Vein graft to the RPDA selective angiography was performed in multiple views using a 5 Fr. AL 1 catheter. This graft is down.. Saphenous Vein graft to the LAD selective angiography was performed in multiple views using a 5 Fr. AL 1 catheter.The arterial sheath was pulled and a TR Band was applied for hemostasis CORONARY ANGIOGRAPHY DOMINANCE: Right Dominant LEFT HEART ASSESSMENT Left Ventricular Ejection Fraction: by Echo 55 % Normal Left Ventricular systolic function Mild perivalvular leak LEFT MAIN: Mild calcification LEFT ANTERIOR DESCENDING ARTERY: PROX LAD: is occluded CIRCUMFLEX ARTERY: OSTIAL CIRC: 95 % Stenosis OM 1: Proximal - 95 % Stenosis RIGHT CORONARY ARTERY: PROX RCA: is occluded GRAFTS: Saphenous Vein graft to the RCA is totally occluded Saphenous Vein graft to the CIRC is totally occluded Saphenous Vein graft to the Mid LAD has a proximal lesion of 80 % Saphenous Vein graft to the Mid LAD has a mid lesion of 70 % VALVE FINDINGS: Aortic Valve Post TAVR - Normal valve function AORTIC ROOT: Calcified Dilated COMPLICATIONS No Complications PROCEDURE MEDICATIONS Fentanyl 50 mcg IV Versed 1 mg IV Oxygen: 2 L/min via nasal cannula Heparin diluted in 23cc Heparinized saline. Patient given 10cc IA of this solution. 01/19/2020 10:28 :51 Verapamil 2.5mg, Ntg 100mcgs, 2000 units of Heparin diluted in 23cc Heparinized saline. Patient give n 10cc IA of this solution. 01/19/2020 10:28:51 SUMMARY OF HEMODYNAMIC DATA Time AIR REST ECG 09:24:13 AO 120/68 (90) SA 10:34:51 Signed By Sameer Guzman MD On 01/19/2020 14:43:55 Signed By Sameer Guzman MD On 01/19/2020 11:27:33 AM Sameer Guzman MD
--- NOTE | 2020-01-19 11:28 | ECHOD_ITS ---
Reason For Study: CAD/ASHD Procedure This was a 2D Doppler, Color Flow transthoracic echocardiogram. Exam performed portable in patient room. Left Ventricle Normal LV size. Moderate concentric left ventricular hypertrophy. Left ventricular systolic function is normal. The estimated ejection fraction is 65 %. Stage 1 diastolic dysfunction. No regional wall motion abnormalities noted. Right Ventricle Normal RV size. Normal systolic function. Atria Normal left atrium. Normal right atrium. Mitral Valve Normal mitral valve. Trivial mitral valve insufficiency. Tricuspid Valve Normal tricuspid valve. Mild (1+) tricuspid valve insufficiency. Pulmonary artery systolic pressure is 28 mmHg. Aortic Valve Mean aortic valve gradient 10 mmHg. Stable appearing bioprosthetic aortic valve apparatus. Pulmonic Valve The pulmonic valve is not well visualized. Great Vessels Normal aortic root. The pulmonary artery is normal size. Normal inferior vena cava. Pericardium/Pleural No pericardial effusion. MMode/2D Measurements & Calculations LVIDd: 4.0 cm IVSd: 1.8 cm LVOT diam: 2.0 cm LVIDs: 2.8 cm LVPWd: 1.3 cm LVOT area: 3.1 cm2 FS: 31.1 % Ao root diam: 2.8 cm LAV(MOD-bp): 52.6 ml LA A4 area: 18.4 cm2 LA dimension: 4.5 cm LAV(MOD-bp) Indexed: 29.0 ml/m2 LAV(MOD-sp2): 55.7 ml LAV(MOD-sp4): 49.9 ml RA A4 area: 15.1 cm2 Time Measurements MV dec time: 0.31 sec Doppler Measurements & Calculations MV E max severiano: 60.8 cm/sec Lat Peak E' Severiano: 12.5 cm/sec Med Peak E' Severiano: 6.9 cm/sec MV A max severiano: 78.9 cm/sec E/E' lat: 4.9 E/E' med: 8.8 MV E/A: 0.77 MV V2 max: 90.1 cm/sec MV P1/2t max severiano: 81.4 cm/sec Ao V2 max: 229.7 cm/sec MV max P.2 mmHg MV P1/2t: 94.8 msec Ao max P.1 mmHg MV V2 mean: 46.1 cm/sec MV dec slope: 251.5 cm/sec2 Ao V2 mean: 148.5 cm/sec MV mean P.0 mmHg Ao mean P.5 mmHg MV V2 VTI: 28.0 cm MVA(P1/2t): 2.3 cm2 Ao V2 VTI: 46.2 cm MVA(VTI): 3.8 cm2 LISBET(I,D): 2.3 cm2 LISBET(V,D): 2.4 cm2 LV V1 max: 177.1 cm/sec SV(LVOT): 105.9 ml PA V2 max: 140.6 cm/sec LV V1 max P.6 mmHg LV V1 mean P.0 mmHg LV V1 mean: 110.9 cm/sec LV V1 VTI: 34.3 cm TR max severiano: 247.0 cm/sec TR max P.4 mmHg Interpretation Summary Normal LV size. Moderate concentric left ventricular hypertrophy. Left ventricular systolic function is normal. The estimated ejection fraction is 65 %. Stage 1 diastolic dysfunction. Mean aortic valve gradient 10 mmHg. Stable appearing bioprosthetic aortic valve apparatus. Ordering Physician: Sameer Guzman Referring Physician: Gianni Brooks Performed By: Kennedy Booth RCS
--- NOTE | 2020-01-19 19:39 | NURSING ---
This RN in room at 1915 for heart cath recovery check. Noticed blood to R groin. Pulled back elastoplast and gauze pressure dressing saturated with blood. Removed gauze dressing, applied pressure. Removed pressure at 192 and no oozing noted. Applied a new gauze pressure dressing. research physician paged dr Nicholson and orders received to pt to be on bedrest for 2 more hours. Pt aware of situation and voices understanding.
[2020-01-19] MEDS: Tamsulosin HCl 0.4 MG Capsule PO (21:02)
[2020-01-19] MEDS: Atorvastatin Calcium 80 MG Tablet PO (21:02)
[2020-01-19] MEDS: TICAGRELOR 90 MG TABLET PO (21:02)
--- NOTE | 2020-01-19 22:18 | NURSING ---
Pt ambulated in the hallway for the first time after bedrest. pt tolerated well. dressing is c/d/i.
[2020-01-20 03:00] VITALS: PULSE 69
[2020-01-20 03:53] VITALS: BP 112/76; PULSE 65; RESP 17; TEMP 37.1; O2SAT 95
[2020-01-20 06:41] LABS: Hematocrit 41.1 % (40-54); Hemoglobin 13.6 g/dL (13.0-16.5); Mean Corp Hgb Conc 33.1 g/dL (32-36); Mean Corpuscular Hgb 29.4 pg (27.0-32.0); Mean Corpuscular Volume 88.8 fL (80-94); Mean Platelet Vol. 9.6 fl (6.2-12.0); Platelet Count 174 K/mm3 (150-450); RBC Distribution Width CV 13.3 % (11.6-14.6); RBC Distribution Width SD 43.3 fl (35.1-43.9); Red Blood Count 4.63 M/mm3 (4.6-6.2); White Blood Count 7.6 K/mm3 (4.4-11.0)
[2020-01-20 06:43] VITALS: PULSE 60
[2020-01-20 07:04] LABS: AST(SGOT) 21 U/L (15-37); Alanine Aminotransfer ALT/SGPT 31 U/L (16-61); Alkaline Phosphatase 95 U/L (45-117); Anion Gap 3 (5-15); BUN 17 mg/dL (7-18); BUN/Creat Ratio 18.6 RATIO (10-20); Calcium,Total 8.4 mg/dL (8.5-10.1); Chloride 109 mmol/L (98-107); Creatinine, Serum 0.92 mg/dL (0.70-1.30); EST Glomerular Filtration Rate 87 mL/min (>60); Est Glom Filt Rate - Afr Amer 106 mL/min (>60); Estimated Creatinine Clearance 64.35 ml/min; Globulin 2.9 g/dL (2.2-4.2); Glucose 103 mg/dL (74-106); Potassium 3.7 mmol/L (3.5-5.1); Protein, Total 5.9 g/dL (6.4-8.2); Sodium Level 139 mmol/L (136-145)
--- NOTE | 2020-01-20 08:00 | PN.CARD_ITS ---
Subjectve: Patient seen and evaluated. Appears to be doing better. No cardiac issues. Had mild groin bleeding yesterday. Objective: Vital Signs Temp Pulse Resp BP Pulse Ox 98.8 F 60 17 112/76 95 01/20/20 03:53 01/20/20 06:43 01/20/20 03:53 01/20/20 03:53 01/20/20 03:53 Oxygen Delivery Method Room Air Weight: 167 lb 8.821 oz Body Mass Index (BMI) 28.5 Finger Stick Blood Glucose 136 Intake and Output for Last 24 Hours 01/18/20 01/19/20 01/20/20 23:59 23:59 23:59 Intake Total 390 / 390 200 / 200 Output Total 700 / 700 Balance -310 / -310 200 / 200 General: Awake, Alert, Oriented x 3 HEENT: PERRL, EOMI, Sclera Non Icteric Neck: Supple, Good ROM, No Lymph Node Enlargement Lungs: Clear to auscultation Cardiovascular: Regular Rhythm, Normal S1, Normal S2, No Murmurs, No Rubs, No Gallops 01/19/20 09:02: WBC 6.9, RBC 5.11, Hgb 15.2, Hct 45.5, MCV 89.0, MCH 29.7, MCHC 33.4, Plt Count 208, MPV 9.8 01/19/20 09:02: Sodium 139, Potassium 4.2, Chloride 108 H, Carbon Dioxide 30.0, Anion Gap 1 L, BUN 18, Creatinine 1.07, Est GFR (MDRD) Af Amer 88, Est GFR (MDRD) Non-Af 73, BUN/Creatinine Ratio 16.8, Glucose 97, Calcium 9.1 01/20/20 06:20: WBC 7.6, RBC 4.63, Hgb 13.6, Hct 41.1, MCV 88.8, MCH 29.4, MCHC 33.1, Plt Count 174, MPV 9.6 01/20/20 06:20: Sodium 139, Potassium 3.7, Chloride 109 H, Carbon Dioxide 27.0, Anion Gap 3 L, BUN 17, Creatinine 0.92, Est GFR (MDRD) Af Amer 106, Est GFR (MDRD) Non-Af 87, BUN/Creatinine Ratio 18.6, Glucose 103, Calcium 8.4 L, Total Bilirubin 0.60 Rhythm: EKG: ECHO: Stress Test: Cardiac Cath: PCI: CT Surgery: Holter monitor: EPS: PPM: CXR: Chest CT Scan: Medical Necessity - Tobacco Use Smoking Status: Never smoker Assessment/Plan 1. Anginal equivalent * The patient underwent angioplasty and stenting of the saphenous vein graft to the LAD as well as balloon angioplasty of the [place] circumflex artery which had previously been angioplastied. He did well overnight. He had some minor bleeding. * 2. Status post coronary bypass surgery * As noted above patient is status post coronary bypass surgery. 2 of his bypass grafts are noted to be patent to the LAD as well as the posterior descending artery. The saphenous vein graft to the circumflex artery is occluded. * 3. Status post TAVR * He appears to be stable with respect to the above. I would not recommend that we make any changes. * An echocardiogram will be performed this morning. * Thank you for allowing me to participate in the care of your patient. Please don't hesitate to call if any issues arise. He will be discharged later this morning.
--- NOTE | 2020-01-20 08:02 | PCM.DC.CCA ---
Discharge Diet: No Restrictions - You may continue your normal diet. Lifting Restrictions: 10 pounds and also avoid any pushing or pulling for 3 days after your test. Additional Activity Instructions:: You must have someone drive you home. Do not drive until instructed by your doctor. You must have someone stay with you all night after your test. Rest in bed or on the couch until the next morning. Limit the number of times you go up and down stairs the day of your test. Apply pressure to the puncture site if you sneeze or cough. Call your doctor if your incision/area has: Increased Pain/ Swelling, Increased Redness, Foul Smelling Discharge, Swelling at the incision site Call your doctor if you observe: Fever of 101 or Higher Additional Dressing/Incision Instructions:: Keep the dressing (bandage) on until the next morning. You may then shower, but do not take a tub bath for 5 days after your test. It is normal to have some tenderness and discomfort at the puncture site. Sometimes bruising also occurs. However, if pain, numbness, or coldness occurs below the puncture site (in your leg, toes, arms or fingers) call your doctor at once. You may have a small, marble sized knot at the puncture site. This is normal. Do not rub it. It will go away in 4-6 weeks. Bleeding can occur from the area where the puncture was done. Blood may spurt or drip from the site. If blood spurts, apply pressure right away to stop bleeding and call 911. Although rare, bleeding into the tissue (hematoma) can also occur. If this happens, a large, firm area goose egg under the skin will appear. If any of these occur, lie down as flat as you can and have someone apply firm pressure to the cath site with a gauze pad or a clean washcloth for 10-15 minutes. Call 911 or go to the Emergency Department. Allergies/Adverse Reactions: Allergies carrot Allergy (Verified 05/07/19 13:04) Itching LITHUANIAN FOODS Adverse Reaction (Uncoded 02/25/19 08:30) Hives Medications to take at Discharge cetirizine 10 mg tablet 5 mg PO QDAY PRN 02/07/17 nitroglycerin 0.4 mg sublingual tablet 0.4 mg SUBLINGUAL Q5-15M PRN #25 tab 09/24/17 aspirin 81 mg tablet,delayed release 81 mg PO DAILY@0800 #90 tab 12/04/17 multivitamin with folic acid 400 mcg tablet 1 tab PO DAILY 01/07/19 atorvastatin 80 mg tablet 80 mg PO QHS #90 tab 02/17/19 ticagrelor 90 mg tablet 90 mg PO BID #60 tab 02/17/19 albuterol sulfate 90 mcg/actuation aerosol inhaler 1 dose INHALATION DAILY 11/13/19 Metoprolol Succinate [Toprol Xl] 12.5 mg PO DAILY 01/09/20 Tamsulosin HCl [Flomax] 0.4 mg PO QHS 01/19/20 Primary Care Physician: Gianni Brooks MD [Primary Care Provider] - Test Results: Test results from this visit will be discussed in further detail at your follow-up appointment, if applicable. When: OFFICE WILL CALL Proposed Discharge Date: 01/20/20 Cardiac Rehabilitation Info Cardiac Rehabilitation Program Information: Cardiac Rehabilitation is important for patients like you who are recovering from a heart problem. Cardiac rehabilitation programs are recognized as integral to the continued care of the patient with coronary heart disease. The cardiac rehabilitation program is designed to optimize a patient's physical, psychological, and social functioning. Health home care and home health aides teacher work in cardiac rehabilitation programs and assist you with getting the treatments you need to get stronger and healthier - like exercise, healthy eating habits, and medications. Cardiac rehabilitation has been show to help people with heart problems live longer and have better life enjoyment than people who do not go to cardiac rehabilitation. Please contact the Cardiac Rehabilitation Program at [facility] at in two weeks if you have not heard from them.
--- NOTE | 2020-01-20 08:26 | CRPHASE1 ---
Patient Communication Former Patient:: Phase I PHII Cardiac Rehab Discussed with Patient:: Yes Guide to Cardiac Rehab Given to Patient:: No - pt is still in cardiac rehab at this time Cardiac Rehab Facility Choice List Given to Patient:: Yes Choice Program [facility] PHII:: Communication Given to CR Choice Program Other:: Communication Given to CR Professional Organizer:: Mara Nicholson Phase II Cardiac Rehab:: Yes Sessions:: 36 sessions - 3 days/wk, 12 weeks - pt currently in cardiac rehab at this time Risk Factors/Lifestyle Smoking Status: Never smoker Hx Hypertension: No Hx Diabetes Mellitus Type 1: No Hx Diabetes Mellitus Type 2: No Hx Metabolic Disorders: No Hx Dyslipidemia: Yes Hx Obesity: No Post-Menopausal: No ETOH: No Caffeine: No Substance Abuse: No Family History: Family History (Last Reviewed 11/13/19 @ 15:04 by Eri Chacon) Brother CAD (coronary artery disease) Brother CAD (coronary artery disease) Brother CAD (coronary artery disease) Brother CAD (coronary artery disease) Sister Hypertension CAD (coronary artery disease) Other Colon cancer Cardiac Rehabilitation Info Cardiac Rehabilitation Program Information: Cardiac Rehabilitation is important for patients like you who are recovering from a heart problem. Cardiac rehabilitation programs are recognized as integral to the continued care of the patient with coronary heart disease. The cardiac rehabilitation program is designed to optimize a patient's physical, psychological, and social functioning. Health career orientation teacher work in cardiac rehabilitation programs and assist you with getting the treatments you need to get stronger and healthier - like exercise, healthy eating habits, and medications. Cardiac rehabilitation has been show to help people with heart problems live longer and have better life enjoyment than people who do not go to cardiac rehabilitation. Please contact the Cardiac Rehabilitation Program at [facility] at in two weeks if you have not heard from them.
--- NOTE | 2020-01-20 08:40 | CRPH1.INSTRU ---
General Education CAD and cardiac anatomy and function:: Patient communicates acknowledgment Explanation of diagnoses and procedures:: Patient communicates acknowledgment Sign/Symptoms of NM:: Patient communicates acknowledgment Antiplatelet therapy: Patient communicates acknowledgment - pt currently in cardiac rehab Smoking Patient Nicotine/Smoking Risk Factors Are:: Never smoked Dyslipidemia Patient Dyslipidemia Risk Factors Are:: Total Cholesterol, Triglycerides, HDL, LDL Recommendations Include:: Lipid profile not available Dyslipidemia Response Code:: Patient communicates acknowledgment Overweight/Obesity Patient Overweight/Obesity Risk Factors Are:: BMI Normal [24-29 & > 65 years old] Hypertension Patient Hypertension Risk Factors Are:: No documented hx of HTN Heart Disease Patient Heart Disease Risk Factors Are:: Previous cardiac event Heart Disease Response Code:: Patient communicates acknowledgment Diabetes Patient Diabetes Risk Factors Are:: No documented hx of diabetes Stress Patient Stress Risk Factors Are:: Patient denies stress as a risk factor
[2020-01-20 09:22] VITALS: BP 109/64; PULSE 67; RESP 16; TEMP 36.7; O2SAT 97
--- NOTE | 2020-01-20 09:27 | CASEMGMT ---
RN CM Assessment Note Introduced role of CM to patient. Demographics, PCP verified. Patient will be discharged today. Denies any concerns, has family @ home to assist. Patient was on Brilinta prior to admission and will continue on dc. No difficulties with prescription. Diagnosis: S/P angioplasty and stenting of the saphenous vei PCP: Dr. Brooks Specialists: Dr. Guzman Insurance: [facility] Preferred Pharmacy: [facility] Pres[facility] Benefit: yes LNOK: Living Arrangements: Lives independently at home. No care needs identified. Tranportation: drives, but family can drive DME: none Patient DC Goals: Home today DC Plan: Home today CM available for discharge planning coordination. Contact CM for any concerns/needs that may arise. Karen KENNEDY RN ACM
[2020-01-20 09:28] VITALS: PULSE 67
[2020-01-20] MEDS: Aspirin E.C. 81 MG Tablet PO (09:28)
[2020-01-20] MEDS: Multivitamins,Therapeutic Tablet 1 TABLET PO (09:28)
[2020-01-20] MEDS: TICAGRELOR 90 MG TABLET PO (09:28)
[2020-01-20] MEDS: Metoprolol(XL)Succ 25 MG Tablet 12.5 MG PO (09:28)
--- NOTE | 2020-01-20 10:00 | EKG12_ITS ---
Test Reason : AM EKG Blood Pressure : / mmHG Vent. Rate : 067 BPM Atrial Rate : 067 BPM P-R Int : 192 ms QRS Dur : 094 ms QT Int : 452 ms P-R-T Axes : 046 021 079 degrees QTc Int : 477 ms Normal sinus rhythm Nonspecific T wave abnormality Prolonged QT Abnormal ECG Confirmed by JONAS FREEMAN, FREDA ([id number]), telegraph editor TALON PIMENTEL ([id number]) on 01/21/2020 9:52:09 AM Referred By: Sameer Guzman Confirmed By:FREDA MCDANIEL MD
--- NOTE | 2020-01-20 10:39 | CL.I_ITS ---
Patient Name: CHLOE WILCOX Study Date: 01/19/2020 Performing: Dereje Nicholson MD Ht: 64.17 inches 163 cm : 1950 Wt: 167.55 lbs 76 kg Age: 69 Gender: male BSA: 1.82 PROCEDURE(S) PERFORMED [id number], SINGLE CORONARY ARTERY [id number] AND/OR PTCA, SINGLE GRAFT CLINICAL PROFILE AND CO-MORBIDITIES Indications: Worsening Angina Heart Failure: None Stress/Imaging Stress/Image Study Performed: No CAD Presentations: Unstable angina. CONCLUSIONS Successful PTCA of ISR of oLCx. Successful MELVIN to SVG to LAD RECOMMENDATIONS ASA Indefinitley Plavix for at least 12 months Follow up with Dr. Guzman DESCRIPTION OF PROCEDURE The patient arrived to the procedure lab. The risks and benefits of the procedure as well as a full d escription of our services here and current unavailability of surgical backup were fully explained to the patient and/or their significant other prior to the catheterization. The Timeout was completed, verifying the correct patient and procedure. The patient's procedural site was prepped and draped in the usual fashion. Local anesthetic was given subcutaneously to right groin region with Lidocaine 2%. Using a modified Seldinger technique, arterial access was obtained via the right femoral artery, a 6 Fr sheath was inserted.. XB 3.0 Guide catheter was inserted and engaged into the LCA. [employer] [place] Guide wire was advance d to the Circumflex. Emerge 2.0 x 15 Balloon catheter was inserted. Balloon catheter was advanced acr oss lesion in the circumflex, ostial. PTCA balloon inflated at 14 atms for 9 secs. NC Emerge 3.0 x 15 Balloon catheter was inserted. Balloon catheter was advanced across lesion in the circumflex, ostial . PTCA balloon inflated at 16 atms for 10 secs. PTCA balloon inflated at 16 atms for 12 secs. PTCA ba lloon inflated at 16 atms for 20 secs. PTCA balloon inflated at 12 atms for 22 secs. Angiogram perfor med post balloon dilatation. AL1 Guide catheter was inserted and engaged into the SVG to the LAD. [employer] [place] Guide wire was reinserted. [employer] [place] Guide wire was advanced to the SVG to the LAD. Sy nergy 4.0 x 32 Drug Eluting stent was inserted. Drug Eluting stent was advanced across the lesion in the graft to the LAD. Angiogram performed post stent deployment. Synergy 4.0 x 16 Drug Eluting stent was inserted. Drug Eluting stent was advanced across the lesion in the graft to the LAD . Angiogram performed post stent deployment. Contrast was injected through the sheath and the Right I liac and Femoral artery were assessed for possible closure device. The arterial sheath was pulled and a Perclose closure device was deployed for hemostasis INTERVENTION INFORMATION LESION SITE: Circumflex (Ostial) Lesion Complexity: High/C, chronic total occlusion: No, lesion at bifurcation: Yes, thrombus present: No, lesion length: 12 mm, culprit lesion: Yes, Previously treated lesion: Yes, In-stent restenosis: Yes, Timeframe of previous treatment: 6-12 months, Previously treated with a stent: Yes Stent Type: w ith MELVIN Pre Stenosis: 95 % Pre intervention OSCAR flow: 3 PROCEDURE: Balloon Angioplasty Post Stenosis: 0 % Post intervention OSCAR flow: 3 Lesion Devices: Cardinal 6 Fr XB3.0 100cm Guide Catheter Horton .014 [employer] [place] Straight 190cm Andrea Sci EMERGE MR 2.00x15 BALLOON Andrea Sci NC EMERGE MR 3.00x15 BALLOON LESION SITE: Vein > to LAD (Mid) Segment Number: 13-Mid-LAD artery segment - mLAD , Lesion Location : Body Lesion Complexity: High/C, chronic total occlusion: No, lesion at bifurcation: No, thrombus present: No, lesion length: 28 mm, culprit lesion: Yes, Previously treated lesion: No Pre Stenosis: 80 % Pre intervention OSCAR flow: 3 PROCEDURE: Drug Eluting Stent Post Stenosis: 0 % Post intervention OSCAR flow: 3 Lesion Devices: Cardinal 6 Fr AL1.0 100cm Guide Catheter [place]orton .014 [employer] [place] Straight 190cm Andrea Sci Synergy MR MELVIN 4.00x32 LESION SITE: Vein > to LAD (Proximal) Segment Number: 12-Proximal LAD artery segment - pLAD Body , Lesion Location: Body Lesion Complexity: High/C, chronic total occlusion: No, lesion at bifurcation: No, thrombus present: No, lesion length: 12 mm, culprit lesion: Yes, Previously treated lesion: No, Previously treated lesi on: No Pre Stenosis: 90 % Pre intervention OSCAR flow: 3 PROCEDURE: Drug Eluting Stent 0 % Post intervention OSCAR flow: 3 COMPLICATIONS No Complications PROCEDURE MEDICATIONS Oxygen: 2 L/min via nasal cannula Heparin 6000 unit(s) IV 01/19/2020 14:01:48 SUMMARY OF HEMODYNAMIC DATA Time AIR REST ECG 13:37:05 AO 120/70 (94) SA 13:58:57 Signed By Dereje Nicholson MD On 01/20/2020 10:41:19 AM Dereje Nicholson MD
== END 2020-01-20 08:03 | disposition home or self-care (01) ==
LOC: CLSP 11:46 → PCU 01-20 09:57
PROVIDERS: Specialist; PCP Family Medicine; Referring Provider Internal Medicine Cardiovascular Disease; Visit Provider Internal Medicine Cardiovascular Disease
DX: I25.708 Atherosclerosis of coronary artery bypass graft(s), unspecified, with other forms of angina pectoris (principal); I25.110 Atherosclerotic heart disease of native coronary artery with unstable angina pectoris; I25.82 Chronic total occlusion of coronary artery; I35.2 Nonrheumatic aortic (valve) stenosis with insufficiency; I48.0 Paroxysmal atrial fibrillation; E78.5 Hyperlipidemia, unspecified; Z95.1 Presence of aortocoronary bypass graft; Z95.2 Presence of prosthetic heart valve; Z95.5 Presence of coronary angioplasty implant and graft; Z79.82 Long term (current) use of aspirin; Z79.899 Other long term (current) drug therapy
CPT/HCPCS: 36415; 71046; 80048; 80053; 85027; 92920; 92937; 93005; 93306; 93459; 99152; 99153; J7040; Q9957; Q9967; A4216; C1725; C1760; C1769; C1874; C1887; C1894; C9604

== ENCOUNTER → 2020-03-04 14:32 | Outpatient (CLI) | payer MEDICARE, OTHER, SELFPAY ==
[2019-04-25 11:23] VITALS: BMI 29.0
[2020-02-25 08:10] VITALS: BMI 28.6
[2020-03-04 16:04] LABS: PSA,Total- Diagnostic 3.49 ng/mL (0.0-4.0)
== END ==
PROVIDERS: PCP Family Medicine; Referring Provider Urology; Visit Provider Urology
DX: R97.20 Elevated prostate specific antigen [PSA] (principal)
CPT/HCPCS: 36415; 84153

== ENCOUNTER → 2020-06-21 06:53 | Outpatient (CLI) | payer MEDICARE, OTHER, SELFPAY ==
[2019-04-25 11:23] VITALS: BMI 29.0
[2020-05-28 09:14] VITALS: BMI 29.5
--- NOTE | 2020-06-21 18:11 | STRESSREP_ITS ---
Stress Test Report Exercise myocardial perfusion stress test. 69-year-old male with a history of aortic valve replacement, coronary artery bypass surgery, status post previous angioplasty and stenting. Stress protocol: Resting EKG demonstrates sinus bradycardia with a rate of 55 bpm. Resting blood pressure is 118/70 mmHg. T wave inversions are noted in lead III. The patient exercised according to the regular Amos protocol for total duration of 7 minutes and 15 seconds. The patient completed 1 minute and 15 seconds into stage III of the Amos protocol. The maximum heart rate attained was 123 bpm which was 80% of maximum predicted heart rate the maximum workload was 8.9 metabolic equivalents. At rest nonspecific ST-T wave changes were noted. At peak exercise there was approximately 2.[address] depression noted in leads II and II 0.[address] depression noted in aVF. Approximately 1.[address] depression were noted in lead III and V5 and 2.[address] depression noted in lead V6. The above is suggestive of ischemia. In addition the patient experienced moderate chest discomfort, moderate shortness of breath, and moderate throat pain. On termination of the test the above symptoms improved. The peak blood pressure was 138/76 mmHg which was a flattening of blood pressure response to exercise. Myocardial perfusion protocol. 10.8 mCi of technetium 99m sestamibi was injected at rest. The patient exercised according to regular Amos protocol for 7 minutes and 15 seconds and at peak exercise 32.5 mCi of technetium 99m sestamibi was injected stress images were obtained stress and rest images were reconstructed and compared in the short axis vertical long horizontal long axis. Gated images were also obtained Perfusion SPECT analysis: Review of the stress images demonstrate normal perfusion noted in all areas of the myocardium except for the basal inferoseptal region. The anterior wall lateral wall and apex were well perfused. The resting images demonstrate improvement in the basal inferior septal region suggestive of ischemia in this territory. The other areas appeared to be well perfused. No obvious infarct was noted. Gated SPECT analysis: The gated ejection fraction 57%. Conclusion: Abnormal exercise myocardial perfusion stress test at a moderate workload with a ngina, EKG changes, and perfusion abnormalities in the basal inferoseptal segment. Preserved ejection fraction.
== END ==
PROVIDERS: PCP Family Medicine; Referring Provider Internal Medicine Cardiovascular Disease; Visit Provider Internal Medicine Cardiovascular Disease
DX: I25.10 Atherosclerotic heart disease of native coronary artery without angina pectoris (principal); Z95.5 Presence of coronary angioplasty implant and graft
CPT/HCPCS: 78452; 93017; A9500; A4216

== ENCOUNTER → 2020-07-28 10:35 | Outpatient (CLI) | payer MEDICARE, OTHER, SELFPAY ==
[2019-04-25 11:23] VITALS: BMI 29.0
[2020-05-28 09:14] VITALS: BMI 29.5
[2020-07-28 12:15] LABS: Absolute Lymphocyte Count 1.26 X10^3/uL (0.83-4.51); Absolute Neutrophil Count 3.1 X10^3/uL (2.0-7.7); Basophil# 0.04 X10^3/uL; Basophil% 0.8 % (0-1); Eosinophil# 0.21 X10^3/uL; Eosinophils% 4.1 % (0-5); Hematocrit 46.4 % (40-54); Hemoglobin 15.4 g/dL (13.0-16.5); Lymphocyte # 1.26 X10^3/ul (0.83-4.51); Lymphocyte % 24.3 % (19-41); Mean Corp Hgb Conc 33.2 g/dL (32-36); Mean Corpuscular Hgb 29.2 pg (27.0-32.0); Mean Platelet Vol. 10.1 fl (6.2-12.0); Monocyte# 0.52 X10^3/uL; NRBC Flagged by Analyzer 0 % (0-5); Neutrophil # 3.14 X10^3/uL (2.7-7.7); Neutrophil % 60.6 % (47-70); Platelet Count 212 K/mm3 (150-450); RBC Distribution Width SD 41.6 fl (35.1-43.9); Red Blood Count 5.27 M/mm3 (4.6-6.2); White Blood Count 5.2 K/mm3 (4.4-11.0)
[2020-07-28 12:46] LABS: AST(SGOT) 15 U/L (15-37); Alanine Aminotransfer ALT/SGPT 26 U/L (16-61); Albumin, Serum 3.7 g/dL (3.2-5.0); Alkaline Phosphatase 110 U/L (45-117); Anion Gap 3 (5-15); BUN 24 mg/dL (7-18); BUN/Creat Ratio 19.8 RATIO (10-20); Calcium,Total 9.4 mg/dL (8.5-10.1); Chloride 103 mmol/L (98-107); Creatinine, Serum 1.21 mg/dL (0.70-1.30); EST Glomerular Filtration Rate 63 mL/min (>60); Est Glom Filt Rate - Afr Amer 77 mL/min (>60); Globulin 3.7 g/dL (2.2-4.2); Glucose 91 mg/dL (74-106); Protein, Total 7.4 g/dL (6.4-8.2); Sodium Level 136 mmol/L (136-145); Thyroid Stim Hormone (TSH) 1.24 uIU/mL (0.358-3.74)
== END ==
PROVIDERS: PCP Family Medicine; Referring Provider Family Medicine; Visit Provider Family Medicine
DX: I25.10 Atherosclerotic heart disease of native coronary artery without angina pectoris (principal); R44.3 Hallucinations, unspecified; E78.00 Pure hypercholesterolemia, unspecified
CPT/HCPCS: 36415; 80053; 84443; 85025

== ENCOUNTER → 2021-04-12 | Outpatient (CLI) | payer MEDICARE, OTHER, SELFPAY ==
[2019-04-25 11:23] VITALS: BMI 29.0
--- NOTE | 2021-04-12 08:04 | CR.ITP_ITS ---
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, AVR w/root replacement Personal Learning Style:: Audio/Visual, Written Barriers to Learning: Vision Impairment Stage of change r/t lifestyle modifications:: Action Gave educational material for:: Treating Heart Disease, Emotions & Heart Disease, Stress Management & Relaxation, Sleep Disorders & Heart Disease, How The Heart Works, What it means to have Heart Disease, How Coronary Artery Disease is Diagnosed, Heart Procedures, What Heart Medications Do, Risk Factors & Modifications, Living an Active Life, Nutrition - Education/Goals Individual Counseling: Initial Assessment: Abnormal Cholesterol Levels, High Blood Pressure Cardiac Rehabilitation Goals: 1. Maintain the individual as the primary focus of care. 2. To improve the patient's quality of life. 3. Identification of cardiac risk factors and provide cardiac risk factor management. 4. Enhance the psychosocial status of the patient. 5. Reconditioning enough to allow the patient to resume customary activities. 6. Control symptoms of cardiac disease Personal Goals: Initial Assessment: Improve energy level, Participate in home exercise program, Improve diet and eating habits (eat healthier), Control risk factors (learn risk factor modification) Scale for measuring improvement of personal goals: Enter appropriate number in Comments. 2 = Unchanged. 3 = Slightly Better. 4 = Moderate Improvement. 5 = Met my Goal - Diagnosis & Disease Process Outcomes/Goals: Pt IDs own risk factors & lifestyle modifications by Session 10, Verbalizes symptoms of angina & response by session 3., Pt independently manages Plan/Interventions: Assist Pt to ID & engage in lifestyle modification to reduce CVD risk, Instruct on individual risk factors, Review symptoms of angina & emergency actions, Review secondary diagnosis & identify educational needs. - Safety Referral to Physical Therapy: No Referral to [facility] Case Management: No Fall Risk Assessed:: Yes Assistive Devices:: None Exercise - Initial Assessment - Visit Date of Eval: 04/12/21 Session #:: 0 - pre-cardiac rehab evaluation Mets: Pre-: >7 METS for 30 minutes by discharge - Physician Prescribed Exercise Modalities: Treadmill, Airdyne, NuStep Frequency: 3x/week for 12 weeks [36 sessions] Intensity: 60-80% of age predicted maximum heart rate reserve Current METSs:: 3.0 Target Heart Rate:: 98-128 Resting Blood Pressure: 101/63 EKG Type: Sinus Rhythm with first degree AV block - Outcomes & Goals Goals:: Verbalizes understanding of THR, RPE & goal METS by session 6, Documents in home exercise log/reports 30 min aerobic 5 day/wk by DC, Demonstrates accurate pulse taking by DC - Intervention & Plan Exercise Program Goals: Instruct on personal THR & RPE, Instruct on MET level & personal MET goal, Show patient to take own pulse /validate performance until accurate, Instruct on home exercise - Physical Activity Home Exercise Physical Activity - Home Exercise: Safe Exercise, Warm-up, Self-monitoring, Cool-Down, Home Exercise > 30 min Daily, Sitting Time <3 hours/daily - Outcomes & Goals Outcomes/Goals: Demonstrates correct Warm-up/exercise Cool-Down (S3) if = 2.5 METs, Verbalizes symptoms of exercise intolerance by Session 3 (S3), Demonstrate safe equipment use (S3) & follows exercise prescrition (6) - Intervention & Plan Plan/Intervention: Instruct warm-up & cool-down if exercising at > 2 METs, Instruct on symptoms of exercise intolerance & actions to take, Instruct & monitor on saf, Assess intial functional capacity & safety risk Nutrition - Initial Assessment - Program Goals Nutrition Program Goals: LDL <100 optimal. 100 - 129 Near optimal. 130 - 159 Borderline High. 160 - 189 High. Total Cholesterol <200 desirable. 200 - 239 Borderline High. >/= 240 High. HDL < 40 Low >/=60 High. Triglycerides <150 desirable. <199 optimal. VlDL 5 - 40. HgbA1C <7%. BMI <25 Patient has diagnosis of Hyperlipidemia (ICD E78)?: Yes - Visit Date of Assessment:: 04/12/21 Session #:: 0 - pre-cardiac rehab evaluation - Cholesterol/Lipids Triglycerides (mg/dL): 121 - 12/17/2019 Total Cholesterol (mg/dL): 143 LDL Cholesterol (mg/dL): 71 HDL Cholesterol (mg/dL): 48 Lipid Medication: Atorvastatin 40mg Determine presence & major risk factors that modify LDL goal: Hypertension or hypertensive medication, Family history of premature CHD in Male < 55 years: female <65 yearsFa, Age men > 45 years; women >/= 55 years Outcomes/Goals: Pt IDs own risk factors & lifestyle modifications by Session 10, Verbalizes symptoms of angina & response by session 3., Pt independently manages Intervention/Plan: Instruct on personal lipid levels & lipid goals/NCEP guidelines, Instruct on cholesterol Referral to dietitian:: Yes - Medical Nutrition Therapy - Diabetes (Other Core Measures) Diabetes Type: Not Applicable - Weight Mgt (Other Care) Not Applicable: Yes Height: 5 ft 4 in Weight:: 162 lb BMI: 27.8 Diagnosis Overweight/Obesity BMI> 30% ICD-10 E66: No Diagnosis High BMI/Morbid Obesity BMI> 35% ICD-10 Z68: No Outcomes/Goals: Pt sets, maintains & shows weight loss goal & trend during rehab Intervention/Plan: Instruct on ideal BMI & set weight loss goal w/patient, Assist pt to ID & incorporate diet changes for weight loss by S9 - Healthy Eating Habits Will attend diet classes:: Yes Outcomes/Goals:: Consume diet rich in vegs,fruits,whole grain/high fiber,fish,lean meat, Limit sat/trans fats,cholesterol & added salts & sugars Intervention/Plan:: Assess current eating habits - currently on low fat, low sodium diet - Education Gave educational materials for:: Healthy eating Nutrition - 30-Day Assessment Nutrition - 60-Day Assessment Nutrition - 90-Day Assessment Nutrition - Final Assessment Medical - Initial Assessment - Visit Date of Eval: 04/12/21 Session #:: 0 - pre-cardiac rehab evaluation - Medication Compliance Preventative Medication(s):: Aspirin, Ticagrelor/P2Y12 inhibitor, Statin/lipid, Beta jana H/O mental health issues: depression, anxiety, or addiction?: No Doesn?t believe in the benefits of treatment?: No Believes medications are unnecessary or harmful?: No Has a concern about medication side effects?: No Expresses concern over the cost of medications?: No Outcomes/Goals: Verbalizes medications,desired effect & common side effects @ DC, Pt self-reports following medication regimen, Keeps card in wallet w/medications listed by DC Interventions/plans: Instruct on medication effects & side effects, Review medication list w/patient every two weeks, Instruct importance of taking meds as ordered & assist problem solving - Tobacco Use Tobacco Use: Non-smoker - Hypertension Hypertension Diagnosis:: Hypertension ICD-10 I10 Resting Blood Pressure:: 101/63 [place] [employer] Hypertension Guidelines: [place] [employer] Hypertension Guidelines. Normal BP Less than 120/80. Elevated BP 120/80. Hypertension Stage 1: BP 130-139/80-89. Hypertesnion Stage 2: BP 140 or higher/90 or higher. Hypertension Crisis: BP higher than 180/120 Outcomes/Goals: Able to verbalize/achieve optimal blood pressure <130/80, Incorporates diet changes & exercise for blood pressure control by DC Interventions/plan: Instruct on optimal blood pressure, hypertension & medications, Instruct on effects of sodium, alcohol, stress, exercise &hypertension - Tobacco Cessation Referral Smoking Cessation Referral:: No Individual Education/Counseling:: No Education Schedule Given:: Yes Medical- 30-Day Assessment Medical- 60-Day Assessment Medical- 90-Day Assessment Medical - Final Assessment Psychosocial - Initial Assess - VIsit Date of Eval: 04/12/21 Session #:: 0 - pre-cardiac rehab evaluation Not Applicable: Yes History of previous Mental disease:: No - Psychosocial Test Tool Used:: [employer] QOL Cardiac, PHQ-9 Questionnaire phq-9 Severity: Severity. 1-4 Minimal Depression. 5-9 Mild Depression. 10-14 Moderate Depression. 15-19 Moderately Sever Depression. 20-27 Severe Depression. Rule: - Referral to Behavioral Health PS - Interventions: Yes Attend Stress Management Classes, No Referral to Behavioral Health if PHQ-9 score >9:, No Referral to [facility], No Referral to Physician if PHQ-9 if score is 5-9: - Outcomes/Goals: See list Psychosocial Outcomes/Goals:: ID's personal stressors & 2 strategies to manage stress by discharge - Intervention/Plan: See List Interventions/Plan:: Assess stressors,coping strategies & signs of derpression on admission, Instruct/assist pt to develop coping & personal stress Mgt strategies, Instruct patient to recognize signs & symptoms of depression, Instruct patient to recog Psychosocial - 30-Day Assess Psychosocial - 60-Day Assess Psychosocial - 90-Day Assess Psychosocial - Final Assessmen Patient Health Questionnaire Initial Assessment 1. Little interest or pleasure in doing things: Not at all 2. Feeling down, depressed, or hopeless: Not at all 3. Trouble falling or staying asleep, or sleeping too much: Several days 4. Feeling tired or having little energy: Not at all 5. Poor appetite or overeating: Not at all 6. Feeling bad about yourself -- or that you are a failure or have let yourself or your family down: Not at all 7. Trouble concentrating on things, such as reading the newspaper or watching television: Not at all 8. Moving or speaking so slowly that other people could have noticed. Or the opposite - being so fidgety or restless that you have been moving around a lot more than usual: Not at all 9. Thoughts that you would be better off , or of hurting yourself in some way: Not at all How difficult have these problems made it for you to do your work, take care of things at home, or get along with other people?: Not difficult at all Total Score: 1 JOSHUA-Q SV Test - Statements CAD is a disease of the arteries in the heart: False Examples of risk factors for heart disease: True Angina is chest pain or discomfort: True The benefits of resistance training include: True Eating more meat and dairy products: False Anti-platelet medications such as aspirin are important: True The only effective way to manage stress: False An exercise warm-up slowly increases heart rate: True Prepared, processed foods usually have high sodium: True Depression is common after a heart attack: True The statin medications lower cholesterol: True To control blood pressure, lower the amount of sodium: True If someone gets chest discomfort during walking: False Transfats are partially hydrogenated vegetable oils: True Sleep apnea that is not treated increases the risk: True To control cholesterol, one should become a vegetarian: False Someone knows if he/she is exercising at the right level: True Diabetes cannot be prevented with exercise & health eating: False Stress is a large risk for heart attack: True A diet that can help lower blood pressure is rich in: True - Total Score Total Correct Responses: 19 Self-Efficacy Initial Assessment We would like to know how confident you are in doing certain activities. Please select your confidence level for:: Select your confidence level for the following using the scale 1-10 where 1 is not at all confident and 10 is totally confident. Your score is the average of all 6 responses. Fatigue: How confident are you that you can keep the fatigue caused by your disease from interfering with the things you want to do? Select Number: 8 Physical Discomfort or Pain: How confident are you that you can keep the physical discomfort or pain of your disease from interfering with the things you want to do? Select Number: 7 Emotional Distress: How confident are you that you can keep the emotional distress caused by your disease from interfering with the things you want to do? Select Number: 8 Other Symptoms or Health Problems: How confident are you that you can keep other symptoms or health problems from interfering with the things you want to do? Select Number: 8 Different Tasks and Activities: How confident are you that you can do the different tasks and activities needed to manage your health condition so as to reduce your need to see a doctor? Select Number: 9 Medication: How confident are you that you can do things other than just taking medication to reduce how much your illness affects your everyday life? Select Number: 9 Total Score:: 8 Nutrition Survey - Nutrition Survey Initial Have you lost >10 lbs over the past 2 months without trying?: No Are you following a special diet at home for diabetes, low fat, or low salt?: Yes Are you interested in meeting with a dietitian for help understanding your diet?: Yes Do you eat less than 3 meals a day?: No Do you eat fatty meats (garcia, sausage, ribs, etc), fried foods, desserts, large amounts of salad dressings, margarine, butter, or cheese most days?: No Do you have food allergies? [Enter types in comment field]: No Do you eat in restaurants more than 3 times a week?: No Do you season food with salt, seasoning salt, or garlic salt?: Yes Do you used canned, boxed, frozen meals, or soups, seasoning packets?: Yes Total Score:: 4
--- NOTE | 2021-04-12 08:04 | PCM.CR.HP2 ---
CR - History & Physical - General Arrival date:: 04/12/21 Arrival time:: 08:06 Date of Referral:: 03/30/21 Date of CR Evaluation:: 04/12/21 Referring Physician: Dr. Romeo Verduzco [facility] Primary Diagnosis: S/P CABG redo- heart valve replacement - History of Present Cardiac Event Onset Date: Enter Onset Date of cardiac illnesses in Comment field below Coronary Artery Bypass Graft:: Yes - S/P triple bypass graft redo - cleaned aorta arch 01/26/2021 Heart valve replacement or repair:: Yes - Replaced Aortic Valve / root replacement 01/26/2021 Type of Symptoms:: Shortness of breath walking inclines, pain during walking. Were there any complications?: none - Sleep Disorder Evaluation Hx of Sleep Apnea: Yes Do you snore loudly (louder than talking or can be heard through closed doors)?: No Do you often feel tired/ fatigued/ sleepy during daytime?: No Has anyone observed you stop breathing during sleep?: No History of Hypertension (for STOP score): Yes STOP Results: Negative - Medications Home Medications: Ambulatory Orders Medication Instructions Recorded cetirizine 10 mg tablet 5 mg PO QDAY PRN 02/07/17 aspirin 81 mg tablet,delayed 81 mg PO DAILY@0800 #90 tab 12/04/17 release multivitamin with folic acid 400 1 tab PO DAILY 01/07/19 mcg tablet albuterol sulfate 90 mcg/actuation 1 dose INHALATION DAILY 11/13/19 aerosol inhaler nitroglycerin 0.4 mg sublingual 0.4 mg SUBLINGUAL Q5-15M PRN #25 02/25/20 tablet tab amoxicillin 500 mg tablet 2,000 mg PO ONCE PRN tablet 05/28/20 tamsulosin 0.4 mg capsule 0.4 mg PO QHS PRN 05/28/20 ticagrelor 90 mg tablet 90 mg PO BID #60 tab 02/07/21 amlodipine 2.5 mg tablet 2.5 mg PO DAILY 04/06/21 atorvastatin 40 mg tablet 40 mg PO QHS 04/06/21 evolocumab 420 mg/3.5 mL 420 mg SUBCUT .montly ml 04/06/21 subcutaneous wearable injector metoprolol tartrate 25 mg tablet 25 mg PO BID 04/06/21 - Allergies Allergies/Adverse Reactions: Allergies carrot Allergy (Verified 05/28/20 09:15) Itching ragweed pollen Allergy (Verified 04/12/21 08:12) Other itching [employer] Adverse Reaction (Uncoded 05/28/20 09:15) Hives Advanced Directives - Advanced Directives Power of Manager Environmental Health And Safety: Yes Living Will: Yes Advance Directives Information Provided: No Advance Directives on File: No DNR Order?:: No - MOLST See MOLST form: No Past Medical History - Covid-19 Screening Fever: No Unexplained muscle aches: No Current respiratory symptoms: No Upper respiratory infections symptoms: No Gastro-intestinal symptoms: No Rqe-Ffge-Cndynn symptoms: Yes - Seasonal Type Allergy Has tested positive for COVID-19 in last 30 days: No Date of testin04/19/20 - Two vaccines and the Booster Had contact w/person w/symptoms or Covid-19 (+) last 14 days: No Has High Risk Exposures ID'd by Health dept/Inf Control team: No 65 years or older:: Yes Lives in Assisted Living facility:: No Has a chronic lung disease or moderate to severe asthma:: No Has a serious heart condition:: Yes Immunocompromised:: Yes Severely obese (Body Mass Index of 40 or higher):: No Diabetic:: No Has chronic kidney disease undergoing dialysis:: No Has liver disease:: No - Past Medical Illness Medical History: Past Medical History (Last Updated 02/07/21 @ 19:56 by Eri Chacon) Arthritis M19.90 Atherosclerosis of coronary artery bypass graft without angina pectoris I25.810 Atherosclerotic heart disease of [place] coronary artery without angina pectoris I25.10 Atrial flutter with rapid ventricular response Onset Date: 01/28/21 I48.92 CVA (cerebral vascular accident) Onset Date: 2010 I63.9 Lacunar Infarct DDD (degenerative disc disease), cervical M50.30 Hemorrhoids K64.9 Hyperlipidemia E78.5 Nonrheumatic aortic (valve) stenosis with insufficiency I35.2 Nonrheumatic mitral (valve) insufficiency I34.0 Paroxysmal atrial fibrillation I48.0 Personal history of colonic polyps Z86.010 Postoperative atrial fibrillation Onset Date: 01/28/21 I97.89, I48.91 Transient ischemic attack G45.9 - Past Surgical History Surgical History: Past Surgical History (Last Updated 04/06/21 @ 10:55 by Eri Diallo H/O aortic valve replacement Onset Date: 01/26/21 Z95.2 AVR 12/03/1995; TAVR 23 mm Hinds Sapin S3 valve 04/23/18; ReDo Biobentall (25mm Konect) 01/26/2021 H/O coronary artery bypass surgery Onset Date: 01/26/21 Z95.1 CABG x 3: SVG-LAD, SVG-OM1, SVG-RPDA 06/23/2010; Re-Do x 3 Redo Biobentall (25mm Konect), CABG x 3: (Radial-PDA, SVG-OM1, SVG-OM2) 01/26/2021 History of coronary artery stent placement Onset Date: 01/19/20 Z95.5 PCI-MELVIN-Mid SVG-OM1 w/ 3.0 x 12 mm Synergy MR Stent 12/03/17; NBB-ARS-Jyqape LM and Ostial LCx w/ 3.0 x 24 mm Synergy Stent 01/30/19; BXH-VWEW-SSJ-Ostial LCx, ATY-PNA-Walj SVG-LAD w/ 4. x 16 mm Synergy Stent and Mid SVG-LAD w/ 4.0 x 32 mm Synergy Stent. 01/19/2020 History of left heart catheterization Onset Date: 08/30/20 Z98.890 01/19/2020, 08/30/20 Surgical History: - - replacement of aortiv valve - Family History Summary Family History: Family History (Last Reviewed 05/28/20 @ 09:[address] Sameer Guzman MD) Brother CAD (coronary artery disease) 2nd brother CABG Brother CAD (coronary artery disease) 3rd brother PCI-Stents Brother CAD (coronary artery disease) 4 brother PCI-Stents and CABG Brother CAD (coronary artery disease) 6th brother PCI-Stents Sister Hypertension CAD (coronary artery disease) CABG age 70 Other Colon cancer Social History - Smoking History Smoking Status: Never smoker - Alcohol Use Alcohol Usage: Yes - occasional beer but A beer - Substance Abuse Hx Substance Use: No - Occupation Occupation (List type of work in comments):: Employed Hours worked per day:: 4 - 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 Left click = Reports ([place]) Review of Present Symptoms: Reports: Operative Discomfort - still experience some surgical discomfort (arthitic pain), Wound Healing, Fatigue - as typeical for a male 66 yr old., Appetite - Normal, Appetite - Special Diet - Low fat, low sodium diet.. Denies: Shortness of Breath at Rest, Shortness of Breath with Exertion, Angina, Dizziness/Lightheadedness, Heart Arrhythmia/Irregularities, Sleep - Normal - find myself waking up more than typical, Sexual Changes - Pain Is Patient Pain Free?: Yes Pain Location: none, other - typical arthitis pain on cold wet days like today Pain Level: 210 Risk Factor Assessment - Vital Signs Temperature: 98.2 F Respiratory Rate: 14 Pulse Ox: 95 Blood Pressure: 101/63 Nailbeds:: pink in color - Pulse Pulse Rate: 65 Pulse Rhythm: Regular - Hypertension How long have you been treated?: many years Blood Pressure Sitting - Left Arm: 101/63 - was 1/2 tab increased to full tablet in Jan 2021 - Blood Cholesterol/Lipids Total Cholesterol (mg/dL) Goal = less than 200 mg/dL: 143 - 12/17/2019 HDL Cholesterol (mg/dL) Goal = less than 40 mg/dL: 48 LDL Cholesterol (mg/dL) Goal = less than 70 mg/dL: 71 Triglycerides (mg/dL) Goal = less than 150 mg/dL: 121 - Obesity Height: 5 ft 4 in Weight:: 166 lb Weight in Pounds: 166.0 lbs Weight Source: Stated by Patient Body Mass Index (BMI): 28.5 Nutritional Referral for Obesity: No - Physical Inactivity Physical Inactivity: Reg Exercise 30 min/day, Recreational activity - Risk Stratification Risk Guidelines: Lowest Risk: Risk Factor for Dyslipidemia, Moderate Risk: Risk Factor for Obesity - 28 - Family History Family History: Family History (Last Reviewed 05/28/20 @ 09:[address] Sameer Guzman MD) Brother CAD (coronary artery disease) Brother CAD (coronary artery disease) Brother CAD (coronary artery disease) Brother CAD (coronary artery disease) Sister Hypertension CAD (coronary artery disease) Other Colon cancer Motivation - Motivation to Participate On a scale of 1 to 10, how prepared are you to commit to attending program?: 10 What do you see as barriers to successfully being able to complete the program?: none What do you see as the benefits of succesfully completing the program? In other words, what do you hope to get out of participating in the program?: Healthier, get strength back, resume exercise at home. 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
[2021-04-12 08:31] VITALS: BP 101/63; PULSE 65; RESP 14; TEMP 36.8; O2SAT 95; BMI 28.5
[2021-04-12 08:52] VITALS: BP 101/63; BMI 27.8
== END | disposition home or self-care (01) ==
PROVIDERS: PCP Family Medicine
DX: Z95.1 Presence of aortocoronary bypass graft (principal); Z95.2 Presence of prosthetic heart valve

== ENCOUNTER 2021-04-14 08:18 | Outpatient (CLI) | payer MEDICARE, OTHER, SELFPAY ==
[2021-04-12 08:52] VITALS: BMI 27.8
[2021-04-14 09:36] LABS: Cholesterol 87 mg/dL (200); High Density Lipoprotein 42 mg/dL; PSA,Total- Diagnostic 3.02 ng/mL (0.0-4.0); Triglycerides 127 mg/dL; Very Low Density Lipoprotein 25 mg/dL (5-40)
== END 2021-04-14 23:59 | disposition home or self-care (01) ==
LOC: LAB 08:20
PROVIDERS: Referring Provider Nurse Practitioner Family; Visit Provider Nurse Practitioner Family
DX: E78.00 Pure hypercholesterolemia, unspecified (principal); R97.20 Elevated prostate specific antigen [PSA]
CPT/HCPCS: 36415; 80061; 84153

== ENCOUNTER 2021-04-18 14:04 | Outpatient (RCR) | payer MEDICARE, OTHER, SELFPAY ==
[2021-04-12 08:52] VITALS: BMI 27.8
== END 2021-04-18 23:59 | disposition home or self-care (01) ==
LOC: CR 14:04
DX: Z95.1 Presence of aortocoronary bypass graft (principal); Z95.2 Presence of prosthetic heart valve
CPT/HCPCS: 93798

== ENCOUNTER 2021-05-18 10:30 | Outpatient (RCR) | payer MEDICARE, OTHER, SELFPAY ==
[2021-04-12 08:52] VITALS: BMI 27.8
--- NOTE | 2021-05-09 13:16 | CR.ITP_ITS ---
Diagnosis - General Information Admitting Diagnosis: S/P CABG Exercise - 30-day Assessment - Visit Date of Eval: 05/09/21 Session #:: 9 - Physician Prescribed Exercise Modalities: Treadmill, Airdyne, NuStep Frequency: 3x/week for 12 weeks [36 sessions] Intensity: 60-80% of age predicted maximum heart rate reserve Current METSs:: 6 Target Heart Rate:: 98-128 Current RPE:: 11-14.5 Maximum Excercise HR:: 141 Resting Blood Pressure: 122/60 Maximum Exercise Blood Pressure: 140/84 EKG Type: NSR to sinus tachy with first degree block, occas PAC and PVC - Outcomes & Goals Goals:: Verbalizes understanding of THR, RPE & goal METS by session 6, Documents in home exercise log/reports 30 min aerobic 5 day/wk by DC, Demonstrates a ccurate pulse taking by DC, Other additional outcome/goals: see below - Intervention & Plan Exercise Program Goals: Instruct on personal THR & RPE, Instruct on MET level & personal MET goal, Show patient to take own pulse /validate performance until accurate, Instruct on home exercise, Other additional plan/int - 30-day Reassessments 30 day Reassessments:: Progressing - Physical Activity Home Exercise Physical Activity - Home Exercise: Safe Exercise, Warm-up, Self-monitoring, Co ol-Down, Home Exercise > 30 min Daily, Sitting Time <3 hours/daily - Outcomes & Goals Outcomes/Goals: Demonstrates correct Warm-up/exercise Cool-Down (S3) if = 2.5 METs, Verbalizes symptoms of exercise intolerance by Session 3 (S3), Demonstrate safe equipment use (S3) & follows exercise prescrition (6), Other: See below - Intervention & Plan Plan/Intervention: Instruct warm-up & cool-down if exercising at > 2 METs, Instruct on symptoms of exercise intolerance & actions to take, Instruct & monitor on saf, Assess intial functional capacity & safety risk, Other See below - 30-day Reassessments 30 day Reassessments:: Progressing Nutrition - Initial Assessment Nutrition - 30-Day Assessment - Visit Date of Assessment:: 05/09/21 Session #:: 9 - Cholesterol/Lipids Determine presence & major risk factors that modify LDL goal: Hypertension or hypertensive medication, Low HDL cholesterol <40 mg/dL*, Family history of premature CHD in Male < 55 years: female <65 yearsFa, Age men > 45 years; women >/= 55 years Outcomes/Goals: Pt IDs own risk factors & lifestyle modifications by Session 10, Verbalizes symptoms of angina & response by session 3., Pt independently manages, Other Additional Outcomes/Goals: Intervention/Plan: Advocate for lipid panel cholesterol medication if applicable, Instruct on personal lipid levels & lipid goals/NCEP guidelines, Instruct on cholesterol, Other additional plan/int 30-day Reassessments:: Progressing - Weight Mgt (Other Care) Height: 5 ft 4 in Weight:: 77.111 kg BMI: 29.2 Outcomes/Goals: Pt sets, maintains & shows weight loss goal & trend during rehab, Other additional outcomes/goals Intervention/Plan: Instruct on ideal BMI & set weight loss goal w/patient, Assist pt to ID & incorporate diet changes for weight loss by S9, Refer to Structured Weight Loss program as appropriate, Encourage goal of using 250- 300dcal per session for weight loss, Other additional plan/interventions 30 day Reassessments:: Progressing - Healthy Eating Habits Will attend diet classes:: Yes Outcomes/Goals:: Consume diet rich in vegs,fruits,whole grain/high fiber,fish,lean meat, Limit sat/trans fats,cholesterol & added salts & sugars, Other additional outcome/goals: Intervention/Plan:: Assess current eating habits, Other Additional plan/interventions 30-day Reassessments:: Progressing - Education Gave educational materials for:: Signs & symptoms of hypoglycemia, Signs & symptoms of hyperglycemia, Relate diabetes to coronary artery disease, Healthy eating Nutrition - 60-Day Assessment Nutrition - 90-Day Assessment Nutrition - Final Assessment Medical - Initial Assessment Medical- 30-Day Assessment - Visit Date of Eval: 05/09/21 Session #:: 9 - Medication Compliance Preventative Medication(s):: Aspirin, Ticagrelor/P2Y12 inhibitor, Statin/lipid, Beta jana H/O mental health issues: depression, anxiety, or addiction?: No Doesn?t believe in the benefits of treatment?: No Believes medications are unnecessary or harmful?: No Has a concern about medication side effects?: No Expresses concern over the cost of medications?: No Outcomes/Goals: Verbalizes medications,desired effect & common side effects @ DC, Pt self-reports following medication regimen, Keeps card in wallet w/medications listed by DC, Other additional outcome/goals: Interventions/plans: Instruct on medication effects & side effects, Review medication list w/patient every two weeks, Instruct importance of taking meds as ordered & assist problem solving, Other additional 30-day Reassessments:: Progressing - Tobacco Use Tobacco Use: Non-smoker Do you use smokeless tobacco?: No - Hypertension Resting Blood Pressure:: 122/60 [place] [employer] Hypertension Guidelines: [place] [employer] Hypertension Guidelines. Normal BP Less than 120/80. Elevated BP 120/80. Hypertension Stage 1: BP 130-139/80-89. Hypertesnion Stage 2: BP 140 or higher/90 or higher. Hypertension Crisis: BP higher than 180/120 Peak Exercise Blood Pressure:: 140/84 Outcomes/Goals: Able to verbalize/achieve optimal blood pressure <130/80, Incorporates diet changes & exercise for blood pressure control by DC, Other additional outcomes/goals Interventions/plan: Instruct on optimal blood pressure, hypertension & medications, Instruct on effects of sodium, alcohol, stress, exercise &hyperte nsion, Other additional plan/interventions 30 day Reassessments:: Progressing - Tobacco Cessation Referral Smoking Cessation Referral:: No Individual Education/Counseling:: No Education Schedule Given:: Yes Medical- 60-Day Assessment Medical- 90-Day Assessment Medical - Final Assessment Psychosocial - Initial Assess Psychosocial - 30-Day Assess - VIsit Date of Eval: 05/09/21 Session #:: 9 History of previous Mental disease:: No Psychosocial - 60-Day Assess Psychosocial - 90-Day Assess Psychosocial - Final Assessmen Patient Health Questionnaire 30-Day Re-eval Assessment 1. Little interest or pleasure in doing things: Not at all 2. Feeling down, depressed, or hopeless: Not at all 3. Trouble falling or staying asleep, or sleeping too much: Several days 4. Feeling tired or having little energy: Not at all 5. Poor appetite or overeating: Not at all 6. Feeling bad about yourself -- or that you are a failure or have let yourself or your family down: Not at all 7. Trouble concentrating on things, such as reading the newspaper or watching television: Not at all 8. Moving or speaking so slowly that other people could have noticed. Or the opposite - being so fidgety or restless that you have been moving around a lot more than usual: Not at all 9. Thoughts that you would be better off , or of hurting yourself in some way: Not at all How difficult have these problems made it for you to do your work, take care of things at home, or get along with other people?: Not difficult at all Total Score: 1 Self-Efficacy 30-Day Re-eval Assessment We would like to know how confident you are in doing certain activities. Please select your confidence level for:: Select your confidence level for the following using the scale 1-10 where 1 is not at all confident and 10 is totally confident. Your score is the average of all 6 responses. Fatigue: How confident are you that you can keep the fatigue caused by your disease from interfering with the things you want to do? Select Number: 8 Physical Discomfort or Pain: How confident are you that you can keep the physical discomfort or pain of your disease from interfering with the things you want to do? Select Number: 7 Emotional Distress: How confident are you that you can keep the emotional distress caused by your disease from interfering with the things you want to do? Select Number: 8 Other Symptoms or Health Problems: How confident are you that you can keep other symptoms or health problems from interfering with the things you want to do? Select Number: 8 Different Tasks and Activities: How confident are you that you can do the different tasks and activities needed to manage your health condition so as to reduce your need to see a doctor? Select Number: 9 Medication: How confident are you that you can do things other than just taking medication to reduce how much your illness affects your everyday life? Select Number: 9 Total Score:: 8 Nutrition Survey
[2021-05-09 13:25] VITALS: BP 122/60; BP 140/84; BMI 29.2
== END 2021-05-19 23:59 ==
LOC: CR 10:30
DX: Z95.1 Presence of aortocoronary bypass graft (principal); Z95.2 Presence of prosthetic heart valve
CPT/HCPCS: 93798

== ENCOUNTER 2021-06-17 10:30 | Outpatient (RCR) | payer MEDICARE, OTHER, SELFPAY ==
[2021-05-09 13:25] VITALS: BMI 29.2
[2021-05-20 00:43] VITALS: BP 122/60; BP 140/84
--- NOTE | 2021-06-06 13:08 | PCM.CR.ITP ---
Diagnosis Exercise - 60-day Assessment - Visit Date of Eval: 06/06/21 Session #:: 22 - Physician Prescribed Exercise Modalities: Treadmill, Airdyne, NuStep Frequency: 3x/week for 12 weeks [36 sessions] Intensity: 60-80% of age predicted maximum heart rate reserve Current METSs:: 8.0 Current RPE:: 11-13 Maximum Excercise HR:: 122 Resting Blood Pressure: 124/62 Maximum Exercise Blood Pressure: 150/80 EKG Type: NSR to sinus tach with 1st degree block, rare PACs, slight ST depression Current Physical Activity or Exercising minutes: 38;48 - Outcomes & Goals Goals:: Verbalizes understanding of THR, RPE & goal METS by session 6, Documents in home exercise log/reports 30 min aerobic 5 day/wk by DC, Demonstrates accurate pulse taking by DC - Intervention & Plan Exercise Program Goals: Instruct on personal THR & RPE, Instruct on MET level & personal MET goal, Show patient to take own pulse /validate performance until accurate, Instruct on home exercise - 30-day Reassessments 30 day Reassessments:: Met - Physical Activity Home Exercise Physical Activity - Home Exercise: Safe Exercise, Warm-up, Self-monitoring, Cool-Down, Home Exercise > 30 min Daily, Sitting Time <3 hours/daily - Outcomes & Goals Outcomes/Goals: Demonstrates correct Warm-up/exercise Cool-Down (S3) if = 2.5 METs, Verbalizes symptoms of exercise intolerance by Session 3 (S3), Demonstrate safe equipment use (S3) & follows exercise prescrition (6) - Intervention & Plan Plan/Intervention: Instruct warm-up & cool-down if exercising at > 2 METs, Instruct on symptoms of exercise intolerance & actions to take, Instruct & monitor on saf, Assess intial functional capacity & safety risk - 30-day Reassessments 30 day Reassessments:: Met Nutrition - Initial Assessment Nutrition - 30-Day Assessment Nutrition - 60-Day Assessment - Program Goals Nutrition Program Goals: LDL <100 optimal. 100 - 129 Near optimal. 130 - 159 Borderline High. 160 - 189 High. Total Cholesterol <200 desirable. 200 - 239 Borderline High. >/= 240 High. HDL < 40 Low >/=60 High. Triglycerides <150 desirable. <199 optimal. VlDL 5 - 40. HgbA1C <7%. BMI <25 Patient has diagnosis of Hyperlipidemia (ICD E78)?: Yes - Visit Date of Assessment:: 06/06/21 Session #:: 22 - Cholesterol/Lipids Determine presence & major risk factors that modify LDL goal: Hypertension or hypertensive medication, Age men > 45 years; women >/= 55 years Outcomes/Goals: Pt IDs own risk factors & lifestyle modifications by Session 10, Pt independently manages Intervention/Plan: Instruct on personal lipid levels & lipid goals/NCEP guidelines, Instruct on cholesterol Referral to dietitian:: No 30-day Reassessments:: Progressing - Diabetes (Other Core Measures) Diabetes Type: Not Applicable - Weight Mgt (Other Care) Not Applicable: No Height: 5 ft 4 in Weight:: 169 lb 8 oz BMI: 29.0 Diagnosis Overweight/Obesity BMI> 30% ICD-10 E66: No Diagnosis High BMI/Morbid Obesity BMI> 35% ICD-10 Z68: No Outcomes/Goals: Pt sets, maintains & shows weight loss goal & trend during rehab Intervention/Plan: Instruct on ideal BMI & set weight loss goal w/patient, Assist pt to ID & incorporate diet changes for weight loss by S9 - Healthy Eating Habits Will attend diet classes:: Yes Outcomes/Goals:: Consume diet rich in vegs,fruits,whole grain/high fiber,fish,lean meat, Limit sat/trans fats,cholesterol & added salts & sugars Intervention/Plan:: Assess current eating habits 30-day Reassessments:: Progressing - Education Gave educational materials for:: Healthy eating Nutrition - 90-Day Assessment Nutrition - Final Assessment Medical - Initial Assessment Medical- 30-Day Assessment Medical- 60-Day Assessment - Visit Date of Eval: 06/06/21 Session #:: 22 - Medication Compliance Preventative Medication(s):: Aspirin, Ticagrelor/P2Y12 inhibitor, Statin/lipid, Beta jana H/O mental health issues: depression, anxiety, or addiction?: No Doesn?t believe in the benefits of treatment?: No Believes medications are unnecessary or harmful?: No Has a concern about medication side effects?: No Expresses concern over the cost of medications?: No Outcomes/Goals: Verbalizes medications,desired effect & common side effects @ DC, Pt self-reports following medication regimen, Keeps card in wallet w/medications listed by DC Interventions/plans: Instruct on medication effects & side effects, Review medication list w/patient every two weeks, Instruct importance of taking meds as ordered & assist problem solving 30-day Reassessments:: Met - Tobacco Use Tobacco Use: Non-smoker - Hypertension Hypertension Diagnosis:: Hypertension ICD-10 I10 Resting Blood Pressure:: 124/62 [place] [employer] Hypertension Guidelines: [place] [employer] Hypertension Guidelines. Normal BP Less than 120/80. Elevated BP 120/80. Hypertension Stage 1: BP 130-139/80-89. Hypertesnion Stage 2: BP 140 or higher/90 or higher. Hypertension Crisis: BP higher than 180/120 Peak Exercise Blood Pressure:: 150/80 Outcomes/Goals: Able to verbalize/achieve optimal blood pressure <130/80, Incorporates diet changes & exercise for blood pressure control by DC Interventions/plan: Instruct on optimal blood pressure, hypertension & medications, Instruct on effects of sodium, alcohol, stress, exercise &hypertension 30 day Reassessments:: Met Medical- 90-Day Assessment Medical - Final Assessment Psychosocial - Initial Assess Psychosocial - 30-Day Assess Psychosocial - 60-Day Assess - VIsit Date of Eval: 06/06/21 Session #:: 22 Not Applicable: Yes History of previous Mental disease:: No - Psychosocial Test Tool Used:: PHQ-9 Questionnaire phq-9 Severity: Severity. 1-4 Minimal Depression. 5-9 Mild Depression. 10-14 Moderate Depression. 15-19 Moderately Sever Depression. 20-27 Severe Depression. Rule: - Referral to Behavioral Health PS - Interventions: Yes Attend Stress Management Classes, No Referral to Behavioral Health if PHQ-9 score >9:, No Referral to [facility], No Referral to Physician if PHQ-9 if score is 5-9: - Outcomes/Goals: See list Psychosocial Outcomes/Goals:: ID's personal stressors & 2 strategies to manage stress by discharge - Intervention/Plan: See List Interventions/Plan:: Assess stressors,coping strategies & signs of derpression on admission, Instruct/assist pt to develop coping & personal stress Mgt strategies, Instruct patient to recognize signs & symptoms of depression, Instruct patient to recog - 30-day Reassessments: 30 day Reassessments:: Met Psychosocial - 90-Day Assess Psychosocial - Final Assessmen Patient Health Questionnaire 60-Day Re-eval Assessment 1. Little interest or pleasure in doing things: Not at all 2. Feeling down, depressed, or hopeless: Not at all 3. Trouble falling or staying asleep, or sleeping too much: Not at all 4. Feeling tired or having little energy: Not at all 5. Poor appetite or overeating: Not at all 6. Feeling bad about yourself -- or that you are a failure or have let yourself or your family down: Not at all 7. Trouble concentrating on things, such as reading the newspaper or watching television: Not at all 8. Moving or speaking so slowly that other people could have noticed. Or the opposite - being so fidgety or restless that you have been moving around a lot more than usual: Not at all 9. Thoughts that you would be better off , or of hurting yourself in some way: Not at all How difficult have these problems made it for you to do your work, take care of things at home, or get along with other people?: Not difficult at all Total Score: 0 Self-Efficacy 60-Day Re-eval Assessment We would like to know how confident you are in doing certain activities. Please select your confidence level for:: Select your confidence level for the following using the scale 1-10 where 1 is not at all confident and 10 is totally confident. Your score is the average of all 6 responses. Fatigue: How confident are you that you can keep the fatigue caused by your disease from interfering with the things you want to do? Select Number: 8 Physical Discomfort or Pain: How confident are you that you can keep the physical discomfort or pain of your disease from interfering with the things you want to do? Select Number: 7 Emotional Distress: How confident are you that you can keep the emotional distress caused by your disease from interfering with the things you want to do? Select Number: 8 Other Symptoms or Health Problems: How confident are you that you can keep other symptoms or health problems from interfering with the things you want to do? Select Number: 8 Different Tasks and Activities: How confident are you that you can do the different tasks and activities needed to manage your health condition so as to reduce your need to see a doctor? Select Number: 9 Medication: How confident are you that you can do things other than just taking medication to reduce how much your illness affects your everyday life? Select Number: 9 Total Score:: 8 Nutrition Survey
[2021-06-06 13:15] VITALS: BP 124/62; BP 150/80; BMI 29.0
== END 2021-06-18 23:59 ==
LOC: CR 10:30
DX: Z95.2 Presence of prosthetic heart valve (principal); Z95.1 Presence of aortocoronary bypass graft
CPT/HCPCS: 93798

== ENCOUNTER 2021-07-08 10:30 | Outpatient (RCR) | payer MEDICARE, OTHER, SELFPAY ==
[2021-06-06 13:15] VITALS: BMI 29.0
[2021-06-19 00:37] VITALS: BP 124/62; BP 150/80
== END 2021-07-19 23:59 ==
LOC: CR 10:30
DX: Z95.2 Presence of prosthetic heart valve (principal); Z95.1 Presence of aortocoronary bypass graft
CPT/HCPCS: 93798

== ENCOUNTER → 2021-11-02 | Outpatient (CLI) | payer MEDICARE, OTHER, SELFPAY ==
[2021-06-06 13:15] VITALS: BMI 29.0
--- NOTE | 2021-11-02 12:42 | RAD_ITS ---
STUDY: XR Chest 2 Views 11/02/2021 12:48 PM REASON FOR EXAM: Male, 71 years old. CHEST PAIN ACUTE BRONCHITIS COMPARISON: 01/09/2020 TECHNIQUE: XR Chest 2 Views FINDINGS: There is no demonstrated pleural abnormality. Multiple median sternotomy wires are noted consistent for cardiac surgery. Prosthetic heart valve. Normal heart size. Normal mediastinum. Normal isabelle. Prominent appearing increased interstitial lung markings. Normal visualized pulmonary arteries. There is atherosclerotic calcification of the aortic arch with tortuosity. There are diffuse degenerative changes of the visualized thoracic spine. There is degenerative osteoarthritis of the bilateral shoulders. There is no demonstrated abnormality of the visualized soft tissue structures of the upper abdomen. RAD/Chest PA and Lateral IMPRESSION: There are no acute findings. Electronically Signed: Luis Armstrong MD at 16:53 EDT ,
== END | disposition home or self-care (01) ==
LOC: MTRAD 12:40
PROVIDERS: PCP Family Medicine; Referring Provider Family Medicine; Visit Provider Family Medicine
DX: J20.9 Acute bronchitis, unspecified (principal)
CPT/HCPCS: 71046

== ENCOUNTER → 2022-05-29 | Outpatient (CLI) | payer MEDICARE, OTHER, SELFPAY ==
[2021-06-06 13:15] VITALS: BMI 29.0
[2022-05-29 16:38] LABS: PSA,Total- Diagnostic 3.49 ng/mL (0.0-4.0)
== END | disposition home or self-care (01) ==
LOC: LAB 15:34
PROVIDERS: PCP Family Medicine; Referring Provider Urology; Visit Provider Urology
DX: R97.20 Elevated prostate specific antigen [PSA] (principal)
CPT/HCPCS: 36415; 84153

== ENCOUNTER 2023-01-05 09:57 | Day surgery (SDC) | payer MEDICARE, OTHER, SELFPAY ==
[2021-06-06 13:15] VITALS: BMI 29.0
[2023-01-05] VITALS (7 sets, daily range): BP systolic 93–128; BP diastolic 70–80; PULSE 51–66; RESP 16; TEMP 36.4–36.8; O2SAT 96–100; BMI 29.1
--- NOTE | 2023-01-05 10:12 | PCM.HP.BLA ---
History and Physical Date of Admission: 01/05/23 Visit Reasons: COLONOSCOPY - FAMILY HX CANCER Chief Complaint: colonoscopy-family hx of cancer Is patient in pain?: No Allergies carrot Allergy (Verified 12/04/22 08:03) ItchingFood Allergies: Uncoded Allergy (Verified 12/04/22 08:03) Hivesragweed pollen Allergy (Verified 12/04/22 08:03) Other Medications cetirizine 10 mg tablet (Zyrtec) 5 mg PO QDAY PRN Allergies 02/07/17 [History Confirmed 12/04/22] multivitamin with folic acid 400 mcg tablet 1 tab PO DAILY 01/07/19 [History Confirmed 12/04/22] albuterol sulfate 90 mcg/actuation aerosol inhaler 1 dose inhalation DAILY 11/13/19 [History Confirmed 12/04/22] nitroglycerin 0.4 mg sublingual tablet 0.4 mg sublingual Q5-15M PRN chest pain #25 tabs 02/25/20 [Rx Confirmed 11/12/22] amoxicillin 500 mg tablet 2,000 mg PO ONCE PRN 05/28/20 [History Confirmed 12/04/22] tamsulosin 0.4 mg capsule 0.4 mg PO QHS PRN prostate 05/28/20 [History Confirmed 11/12/22] amlodipine 2.5 mg tablet 2.5 mg PO DAILY 04/06/21 [History Confirmed 12/04/22] atorvastatin 40 mg tablet 40 mg PO QHS 04/06/21 [History Confirmed 12/04/22] evolocumab 420 mg/3.5 mL subcutaneous wearable injector (Repatha Pushtronex) 420 mg subcut .montly 04/06/21 [History Confirmed 11/12/22] [facility] Medical History (Updated 12/04/22 @ 05:[address] Ge Ag MD) Arthritis Atherosclerosis of coronary artery bypass graft without angina pectoris Atherosclerotic heart disease of [place] coronary artery without angina pectoris Atrial flutter with rapid ventricular response (01/28/21) CVA (cerebral vascular accident) (2010) DDD (degenerative disc disease), cervical Hemorrhoids Hyperlipidemia Nonrheumatic aortic (valve) stenosis with insufficiency Nonrheumatic mitral (valve) insufficiency Paroxysmal atrial fibrillation Personal history of colonic polyps Postoperative atrial fibrillation (01/28/21) Transient ischemic attack Surgical History (Updated 04/06/21 @ 10:55 by Eri Chacon) H/O aortic valve replacement (01/26/21) H/O coronary artery bypass surgery (01/26/21) History of coronary artery stent placement (01/19/20) History of left heart catheterization (08/30/20) Family History Brother CAD (coronary artery disease) 2nd brother CABGBrother CAD (coronary artery disease) 3rd brother PCI-StentsBrother CAD (coronary artery disease) 4 brother PCI-Stents and CABGBrother CAD (coronary artery disease) 6th brother PCI-StentsSister Hypertension CAD (coronary artery disease) CABG age 70Other Colon cancer Social History (Updated 05/28/20 @ 09:[address] Sameer Guzman MD) Smoking Status: Never smoker alcohol intake: current alcohol intake frequency: a few times a month substance use type: does not use HPI HPI HPI: 72-year-old gentleman. Most recently March 16, 2017 because of a personal history of colon polyps and a family history of colon cancer I performed a colonoscopy for him. Extensive pancolonic diverticulosis was identified. Because of a prosthetic aortic valve 2 g of ampicillin was given intravenously preprocedure. This was done with mild using 100 mg Demerol and 2.5 mg of Versed. Follow-up endoscopy at 5 years recommended. No new polyps were identified at that setting. In 2020 the patient had his third heart surgery. He had a third heart valve placed and he had going to bypass grafting x3. He runs walks routinely. He plays seniors softball. He remains physically active and denies any chest pain no shortness of breath no abdominal pain no bright red blood per rectum or melena. He is not on any aspirin but he is on clopidogrel therapy. No history of DVT. ROS General General: No weight change, appetite, fatigue, colon cancer, breast cancer or weakness HEENT HEENT: No difficulty swallowing, eye injury, eye surgery, swollen glands or hoarseness Endo Endocrine: No thyroid disease, diabetes mellitus, thyroid cancer, Hair loss, heat intolerance or cold intolerance Skin Skin: No rash or changing moles Musc Musculoskeletal: Yes back problems and arthritis; No rheumatoid arthritis, gout or joint pain Cardio Cardiovascular: Yes murmur, heart disease and heart stent; No pacemaker, atrial fibrillation, high blood pressure, heart attack, palpitations, shortness of breat with exertion or chest pain Psych Psychiatric: No depression, anxiety or hearing voices Resp Respiratory: No shortness of breath, No sleep apnea, No cough, No COPD, No asthma, No emphysema and No wheezing Gastro Gastrointestinal: No abdominal pain, No nausea or vomiting, No diarrhea, No constipation, No blood in stool, No acid reflux, Yes hemorrhoids, No ulcers, No gallbladder problem and No black,tarry stools Navi Hematologic: Yes blood thinners, No blood disorders, No bleeding, No anemia and No blood clots Neuro Neurologic: No system reviewed and no additional complaints, except as documented, No as per HPI, No abnormal gait, No abnormal hearing, No abnormal movements, No abnormal speech, No behavioral changes, No burning sensations, No confusion, No convulsions, No disequilibrium, No dizziness, No localized weakness, No frequent falls, No headache(s), No lack of coordination, No loss of vision, No memory loss, No numbness, No other visual disturbances, No radicular pain, No restless legs, No sensory deficit, No syncope, No tingling, No tremor(s), No weakness and No other Assessment and Plan Assessment and Plan (1) H/O aortic valve replacement: Status: Resolved Comment: AVR 12/03/1995; TAVR 23 mm Hinds Sapin S3 valve 04/23/18; ReDo Biobentall (25mm Konect) 01/26/2021 (2) Family history of colon cancer: Status: Acute Plan: Family history of colon cancer in his father.'s father was either late 50s or early 60s. (3) Personal history of colonic polyps: Status: Acute Plan: I recommended the patient a colonoscopy with possible biopsy or polypectomy as indicated. We will provide ampicillin 2 g IV immediately prior to the procedure. Because of his third heart valve replacement aortic valve we will have monitored anesthesia care. We will have him hold his Plavix just 1 day prior. He has had an opportunity to ask and have questions answered. We will schedule procedure at his discretion. I appreciate the ongoing opportunity of assisting with the surgical care Copy: Dr Gianni Ag M.D., F.A.C.S. I have examined the patient and the H&P has been reviewed. There are no clinical changes since date of exam. Ge Ag M.D., F.A.C.S.
[2023-01-05] MEDS: Lactated Ringers 1,000 ML 15 ML IV (10:32)
[2023-01-05] MEDS: Ampicillin 2 GM in 0.9% Normal Saline (100mL MB+) 100 ML IV (10:44)
--- NOTE | 2023-01-05 11:00 | COLBX_PTH ---
PATIENT: CHLOE WILCOX LOC: EN U#:[id number] AGE/SX: 72/M ROOM: RE01/05/[address]: Dr. Ge Ag MD : 1950 BED: DIS: 01/05/2023 SPEC #: [id number] RECD: 01/05/23 12:10 STATUS: PAULA ROSE MARIE #: [id number] RICHARD: 01/05/23 11:[address]: Ge Ag DEPT: SURGICAL PATHOLOGY RECD BY: Tino Salazar ENTERED: 01/05/23 13:01 SP TYPE: COLON BX OTHR DR: Rae Kate DO Tissues: A - Cecum, NOS B - Transverse colon C - Transverse colon Procedures: Surgery Specimen Level IV HEADER OPERATION: Colonoscopy, biopsy PRE-OP DIAGNOSIS: History of colonic polyps TISSUE SUBMITTED: A - Cecum polyp biopsy, B - Mid transverse polyp biopsy, C - Distal transverse polyp biopsy MICROSCOPIC DIAGNOSIS A. Cecal polyp, biopsy: Tubular adenoma. B. Mid transverse colon polyp, biopsy: Fragments of tubular adenoma. C. Distal transverse colon polyp, biopsy: Fragments of tubular adenoma. AM:lazara 01/08/2023 MICROSCOPIC DESCRIPTION Slides are reviewed. GROSS DESCRIPTION A - Received in fixative is one container labeled with the patient's name and designated cecum polyp. The specimen consists of one irregular fragment of light vela soft tissue that measures 0.5 x 0.2 x 0.1 cm. The specimen is totally submitted in one cassette. B - Received in fixative is one container labeled with the patient's name and designated mid transverse polyp. The specimen consists of multiple irregular fragments of light vela soft tissue that in aggregate measure 1.0 x 0.3 x 0.1 cm. The specimen is totally submitted in one cassette. C - Received in fixative is one container labeled with the patient's name and designated transverse colon polyp. The specimen consists of two irregular fragments of light vela soft tissue that in aggregate measure 1.0 x 0.5 x 0.1 cm. The specimen is totally submitted in one cassette. / AM:lazara 01/05/2023 TC:5 CPT: 17313 x3
--- NOTE | 2023-01-05 11:17 | OP.CCLET_ITS ---
01/05/2023 Rae Kate, Do Re : Colonoscopy procedure for Duane Peralta Dear [place] This procedure was performed on Thursday, January 05, 2023. My impressions and recommendations are as follows: Impressions : - Non-thrombosed external hemorrhoids, non-thrombosed internal hemorrhoids, internal hemorrhoids that prolapse with straining, but spontaneously regress to the resting position (Grade II) and enlarged prostate found on digital rectal exam. - One 3 mm polyp in the cecum, removed with a cold biopsy forceps. Resected and retrieved. - One 5 mm polyp in the mid transverse colon, removed with a cold biopsy forceps. Resected and retrieved. - One 5 mm polyp in the distal transverse colon, removed with a cold biopsy forceps. Resected and retrieved. - Diverticulosis in the sigmoid colon. Recommendations : - Discharge patient to home. - Resume previous diet. - Continue present medications. - Repeat colonoscopy in 5 years for surveillance based on pathology results. - Telephone my office for pathology results in 1 week. My findings are described in the full procedure note, which is enclosed. If I can be of further assistance, please feel free to contact me at Doctor phone number(s): Work: . Sincerely, Ge Ag MD 01/05/2023 11:16:42 AM This report has been signed electronically.
--- NOTE | 2023-01-05 11:17 | OP.COLON_ITS ---
Patient Name: Duane Peralta Procedure Date: 01/05/2023 10:38 AM Date of : 1950 Age: 72 Procedure: Colonoscopy Indications: High risk colon cancer surveillance: Personal history of colonic polyps, Family history of colon cancer in a first-degree relative before age 60 years Providers: Ge Ag MD Referring MD: Ge Ag MD Medicines: See the Anesthesia note for documentation of the administered medications, Ampicillin 2 g IV Patient Profile: Last Colonoscopy: February 2017. Complications: No immediate complications. Procedure: Pre-Anesthesia Assessment: - Prior to the procedure, a History and Physical was performed, and patient medications and allergies were reviewed. The patient's tolerance of previous anesthesia was also reviewed. The risks and benefits of the procedure and the sedation options and risks were discussed with the patient. All questions were answered, and informed consent was obtained. Prior Anticoagulants: The patient has taken Plavix (clopidogrel), last dose was 1 day prior to procedure. ASA Grade Assessment: II - A patient with mild systemic disease. After reviewing the risks and benefits, the patient was deemed in satisfactory condition to undergo the procedure. After I obtained informed consent, the scope was passed under direct vision. Throughout the procedure, the patient's blood pressure, pulse, and oxygen saturations were monitored continuously. The adult colonoscope was introduced through the anus and advanced to the cecum, identified by appendiceal orifice and ileocecal valve. The colonoscopy was performed without difficulty. The patient tolerated the procedure well. The quality of the bowel preparation was good. The ileocecal valve and the appendiceal orifice were photographed. Scope In: 10:48:29 AM Scope Withdrawal Time 0 hours 14 minutes 58 seconds Scope Out: 11:09:00 AM Total Procedure Duration Time 0 hours 20 minutes 31 seconds Findings: The digital rectal exam findings include non-thrombosed external hemorrhoids, non-thrombosed internal hemorrhoids, internal hemorrhoids that prolapse with straining, but spontaneously regress to the resting position (Grade II) and enlarged prostate. A 3 mm polyp was found in the cecum. The polyp was sessile. The polyp was removed with a cold biopsy forceps. Resection and retrieval were complete. A 5 mm polyp was found in the mid transverse colon. The polyp was sessile. The polyp was removed with a cold biopsy forceps. Resection and retrieval were complete. A 5 mm polyp was found in the distal transverse colon. The polyp was sessile. The polyp was removed with a cold biopsy forceps. Resection and retrieval were complete. Multiple diverticula were found in the sigmoid colon. Impression: - Non-thrombosed external hemorrhoids, non-thrombosed internal hemorrhoids, internal hemorrhoids that prolapse with straining, but spontaneously regress to the resting position (Grade II) and enlarged prostate found on digital rectal exam. - One 3 mm polyp in the cecum, removed with a cold biopsy forceps. Resected and retrieved. - One 5 mm polyp in the mid transverse colon, removed with a cold biopsy forceps. Resected and retrieved. - One 5 mm polyp in the distal transverse colon, removed with a cold biopsy forceps. Resected and retrieved. - Diverticulosis in the sigmoid colon. Recommendation: - Discharge patient to home. - Resume previous diet. - Continue present medications. - Repeat colonoscopy in 5 years for surveillance based on pathology results. - Telephone my office for pathology results in 1 week. Procedure Code(s): --- Professional --- 90780, Colonoscopy, flexible; with biopsy, single or multiple Diagnosis Code(s): --- Professional --- Z86.010, Personal history of colonic polyps D12.0, Benign neoplasm of cecum D12.3, Benign neoplasm of transverse colon (hepatic flexure or splenic flexure) K64.1, Second degree hemorrhoids K64.4, Residual hemorrhoidal skin tags Z80.0, Family history of malignant neoplasm of digestive organs N40.0, Benign prostatic hyperplasia without lower urinary tract symptoms K57.30, Diverticulosis of large intestine without perforation or abscess without bleeding CPT copyright 2021 [employer]. All rights reserved. The codes documented in this report are preliminary and upon word processing supervisor review may be revised to meet current compliance requirements. Ge Ag MD 01/05/2023 11:16:42 AM This report has been signed electronically. Number of Addenda: 0 Note Initiated On: 01/05/2023 10:38 AM
== END 2023-01-05 12:02 | disposition home or self-care (01) ==
LOC: EN 09:58 → AC 10:00
PROVIDERS: PCP Family Medicine; Referring Provider Surgery; Visit Provider Surgery
PROC: 0DJD8ZZ Inspection of Lower Intestinal Tract, Via Natural or Artificial Opening Endoscopic (ICD-10-PCS; CPT 45378; principal; 2023-01-05 10:55)
DX: Z12.11 Encounter for screening for malignant neoplasm of colon (principal); I48.0 Paroxysmal atrial fibrillation; D12.0 Benign neoplasm of cecum; D12.3 Benign neoplasm of transverse colon; K64.1 Second degree hemorrhoids; K64.4 Residual hemorrhoidal skin tags; K57.30 Diverticulosis of large intestine without perforation or abscess without bleeding; I25.10 Atherosclerotic heart disease of native coronary artery without angina pectoris; E78.5 Hyperlipidemia, unspecified; N40.0 Benign prostatic hyperplasia without lower urinary tract symptoms; Z95.1 Presence of aortocoronary bypass graft; Z95.2 Presence of prosthetic heart valve; Z79.02 Long term (current) use of antithrombotics/antiplatelets; Z79.899 Other long term (current) drug therapy; Z86.010 Personal history of colon polyps; Z86.73 Personal history of transient ischemic attack (TIA), and cerebral infarction without residual deficits; Z80.0 Family history of malignant neoplasm of digestive organs
CPT/HCPCS: 45380; 88305; J7120; J2405

== ENCOUNTER → 2023-07-13 | Outpatient (CLI) | payer MEDICARE, OTHER, SELFPAY ==
[2021-06-06 13:15] VITALS: BMI 29.0
[2023-07-13 09:29] LABS: PSA,Total- Diagnostic 5.31 ng/mL (0.0-4.0)
== END | disposition home or self-care (01) ==
LOC: LAB 08:21
PROVIDERS: Referring Provider Urology; Visit Provider Urology
DX: R97.20 Elevated prostate specific antigen [PSA] (principal)
CPT/HCPCS: 36415; 84153

== ENCOUNTER → 2023-11-09 | Outpatient (CLI) | payer MEDICARE, OTHER, SELFPAY ==
[2021-06-06 13:15] VITALS: BMI 29.0
--- NOTE | 2023-11-09 14:31 | RAD_ITS ---
STUDY: X-RAY - RIGHT WRIST REASON FOR EXAM: Male, 73 years old. Right wrist pain. TECHNIQUE: 3 views of the right wrist were obtained. COMPARISON: None. FINDINGS: Normal visualized distal radius and ulna. Normal radiocarpal articulation. Normal distal radioulnar articulation. Normal carpal bones. Normal carpal articulations. Normal second through fifth carpometacarpal articulations. There is a 4 mm cyst at the base of the first metacarpal. Normal visualized metacarpal bones. The soft tissue structures are unremarkable. There is no demonstrated acute fracture. RAD/Wrist min 3 Views IMPRESSION: 4 mm cyst at the base of the first metacarpal. No demonstrated acute fracture. Electronically Signed: Anthony Santiago MD at 15:23 EDT ,
== END | disposition home or self-care (01) ==
LOC: MTRAD 14:31
PROVIDERS: PCP Family Medicine; Referring Provider Family Medicine; Visit Provider Family Medicine
DX: M25.531 Pain in right wrist (principal)
CPT/HCPCS: 73110

== ENCOUNTER → 2023-12-07 | Outpatient (CLI) | payer MEDICARE, OTHER, SELFPAY ==
[2021-06-06 13:15] VITALS: BMI 29.0
[2023-12-07 10:00] LABS: Absolute Lymphocyte Count 1.57 X10^3/uL (0.83-4.51); Absolute Neutrophil Count 3.8 X10^3/uL (2.0-7.7); Basophil# 0.04 X10^3/uL; Basophil% 0.6 % (0-1); Eosinophils% 4.8 % (0-5); Hematocrit 45.2 % (40-54); Hemoglobin 15.3 g/dL (13.0-16.5); Lymphocyte # 1.57 X10^3/ul (0.83-4.51); Mean Corp Hgb Conc 33.8 g/dL (32-36); Mean Corpuscular Hgb 29.9 pg (27.0-32.0); Mean Corpuscular Volume 88.3 fL (80-94); Mean Platelet Vol. 9.5 fl (6.2-12.0); Monocyte# 0.61 X10^3/uL; Monocyte% 9.7 % (0-10); NRBC Flagged by Analyzer 0 % (0-5); Neutrophil # 3.75 X10^3/uL (2.7-7.7); Neutrophil % 59.6 % (47-70); Platelet Count 250 K/mm3 (150-450); RBC Distribution Width CV 12.7 % (11.6-14.6); RBC Distribution Width SD 41.3 fl (35.1-43.9); Red Blood Count 5.12 M/mm3 (4.6-6.2); White Blood Count 6.3 K/mm3 (4.4-11.0)
[2023-12-07 10:07] LABS: ALB/GLOB Ratio 1.2 RATIO (0.9-2.4); AST(SGOT) 16 U/L (15-37); Alanine Aminotransfer ALT/SGPT 22 U/L (16-61); Albumin, Serum 3.8 g/dL (3.2-5.0); Alkaline Phosphatase 102 U/L (45-117); Anion Gap 4 (5-15); BUN 22 mg/dL (7-18); BUN/Creat Ratio 21.4 RATIO (10-20); Calcium,Total 8.9 mg/dL (8.5-10.1); Chloride 108 mmol/L (98-107); Creatinine, Serum 1.03 mg/dL (0.70-1.30); EST Glomerular Filtration Rate 75 mL/min (>60); Est Glom Filt Rate - Afr Amer 91 mL/min (>60); Globulin 3.3 g/dL (2.2-4.2); Glucose 91 mg/dL (74-106); PSA,Total- Diagnostic 4.13 ng/mL (0.0-4.0); Potassium 3.8 mmol/L (3.5-5.1); Protein, Total 7.1 g/dL (6.4-8.2); Sodium Level 142 mmol/L (136-145)
== END | disposition home or self-care (01) ==
LOC: LAB 08:03
PROVIDERS: PCP Family Medicine; Referring Provider Family Medicine; Visit Provider Family Medicine
DX: R73.09 Other abnormal glucose (principal); N42.9 Disorder of prostate, unspecified
CPT/HCPCS: 36415; 80053; 84153; 85025

== ENCOUNTER 2023-12-24 16:00 | Outpatient (RCR) | payer MEDICARE, OTHER, SELFPAY ==
[2021-06-06 13:15] VITALS: BMI 29.0
--- NOTE | 2023-11-20 10:01 | HP.PTEVAL ---
Patient's Visit Information Visit Information Visit Information: CHLOE WILCOX is a 73 year old M referred to Physical Therapy by Gatito Messina MD with a diagnosis of R shoulder pain. Date of Evaluation: 11/20/23 Physical Therapist: Jeremy Medley DPT Visit Plan Frequency: 1x/Week Duration: 4 Weeks Plan: 1) RTC and deltoid strengthening with progressive loading. Pt. given HEP and bands this date. Pt. given phase III RTC strengthening. Pt. to complete for 2-3 weeks on his own than come back to PT as needed. Subjective Subjective: Pt. is here today for his R shoulder pain. Pt. reports having increased R shoulder pain at anterior and superior aspects. He reports his biggest issues is with over hand throwing while playing softball. He reports only being able to throw the ball 20 feet and having increased pain while doing so. He reports no mech of injury. Pt. reports no issues with sleeping. Pt. denies N/T. Pt. has not done any imaging. Pt. is hopeful to reduce symptoms in order to get back to all softball without issues. Pain R shoulder: Pain Intensity (Out of 10): 0 Pain Intensity Range: 0 and 4 Objective Objective: POSTURE: Pt. has slight FH posture, more so rounded shoulder noted. PALPATION: Pt. has tenderness along biceps tendon, Increased pain at supraspinatus muscle belly. NEURO: Pt. has normal sensation in BLEs. No N/T noted. Pt. has normal DTR of BUEs. ROM: L shoulder full ROM without increase in symptoms. R shoulder: AROM: flexion 170deg increase NW, abd 165deg increase NW, functional ER C4, functional IR L3 increase NW. PROM: Flexion 175deg mild increase NW, abd 175deg increase NW, ER at 90deg 110deg NE, IR at 90deg 50deg mild increase NW. MMT: R shoulder: flexion 15#, abd 14#, ER 14.1#, IR 18.1#. L shoulder: flexion 14#, abd 11#, ER 13.7#, IR 17.9#. Special Tests R Shoulder External Rotation Lag Test - RC Tear: Negative R Shoulder Supine Impingement Test - RC Tear: Negative R Shoulder Drop Sign - IS Test: Negative R Shoulder Empty Can - SS: Positive R Shoulder Belly Press - SupScap: Negative R Shoulder Neer - Impingement: Positive R Shoulder Seo Silvio - Impingement: Positive R Shoulder Biceps Load Test - Labrum: Negative Balance/Special Test Scores Quick DASH Score: 27.2725 Goals Goal 1:: LTG: Pt. to be I with HEP for RTC strengthening. Goal Time Frame: 4-6 Weeks Goal 2:: LTG: Pt. to be able to throw a softball without increase in R shoulder pain. Goal Time Frame: 4-6 Weeks Goal 3:: STG: Pt. to have full R shoulder ROM without increase in shoulder pain. Goal Time Frame: 2-4 Weeks Goal 4:: LTG: Pt. to have no pain with all over head activities. Goal Time Frame: 4-6 Weeks Rehabilitation Potential Physical Therapy Diagnosis: Pt. has signs and symptoms consistent with R shoulder pain. He did not have signs of RTC rupture or significant OA. Pt. would benefit from PT to work on RTC progressive loading to increase tolerance to throwing with softball. Rehabilitation Potential: Excellent Anticipated Interventions Patient/Client Instruction: Educate patient on: Condition, Plan of Care, Risk Factors and Benefits of Fitness Program For the Purpose of:: To facilitate caregiver knowledge, To improve self management, To prevent re-injury, To improve ability to perform tasks related to life management and To improve tolerance to ADL's Therapeutic Exercise to Include: Strength training, Power training, Postural training, Flexibilty training, Passive ROM, Active ROM and Scapular Strength/Stabilization For the Purpose of:: To decrease pain, To increase ROM, To improve nutrient delivery to tissue, To increase oxygenation perfusion, To improve muscle performance and motor function, To improve ability to perform ADL's and To decrease soft tissue restriction Text: Thank you for the opportunity to evaluate your patient. For Medicare and Medicare HMO plans, please review the plan of care and approve it. It will need to be FAXED BACK to us at [phone] for Medicare purposes. For Medicare only, by signing this I certify the plan of care. Please let me know if there are questions or concerns regarding this plan of care. Physician Signature: Date:
--- NOTE | 2023-11-21 15:38 | HP.OTEVAL_ITS ---
Patient's Visit Information Visit Information Visit Information: CHLOE WILCOX is a 73 year old M, referred to Occupational Therapy by Gatito Messina MD, with a diagnosis of right wrist pain. Date of Evaluation: 11/21/23 Occupational Therapist: Courtney Jarvis, SHENA/Jeffery, CHT Subjective Subjective: This 73 year old male was seen for OT eval with dx of pain of right wrist- tendon disorder. Pt states he has had issues with his wrist for almost a year. Pt states he was given a right wrist brace to wear with working and with playing softball. 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 right handed. pt states he can not open new jar lids due to pain pt would like to know what he can do to decrease pain to cont. to play softball and perform his daily occupations. 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 Goal:: Pt will demo understanding of work/lifting and carry ergonomics to decrease stress on tendons to increase pts independent with ADLs, IADLS and work tasks by d/c. Pt will demo understanding of using supportive bracing 80% of workday/ADLS to decrease stress on tendon origin to allow healing and decrease pain by end of 2nd session. pt will demo understanding of using supportive tape to right wrist to limit stress on FCU and support TFCC region by end of 2nd visit. Rehabilitation General Assessment: pt demo with painful right forearm sup/pronation and resistive wrist flexion. The symptoms limit pts IND with daily occupations. pt would benefit from skilled OT services 2x week for 4-6 weeks to return pt to PLOF. Today therapist ed, pt on wrist ergo at laptop and to avoid excessive strain by avoiding holding item long period of time. Therapist will work with pt to establish HEP and wrist stabilization ex. pt demo understanding and agree to POC. Rehabilitation Potential: Good Anticipated Interventions Anticipated Interventions: A/AAROM/PROM, Strengthening, Triggerpoint Release, Modalities, Orthoses, Joint Protection/Energy Conservation, Ergonomic Education, Education re assistive Equipment, Education re Diagnosis and Home Program Visit Plan Frequency: 2x /Week Duration: 4-6 Weeks TEXT: Thank you for the opportunity to evaluate your patient. For Medicare and Medicare HMO plans, please review the plan of care and approve it. It will need to be FAXED BACK to us at [phone] for Medicare purposes. Please let me know if there are questions or concerns regarding this plan of care. Physician Signature: Date:
--- NOTE | 2023-12-24 17:27 | HP.OTDCSUM ---
Discharge Summary D/C Summary: It has been my pleasure to treat CHLOE WILCOX under orders from Gatito Messina MD, for the diagnosis of right wrist pain for a total of 10 visit(s). Please see the following information for a summary of their discharge status. 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 pt has made gains but feel further testing imaging would be beneficial. Goals Patient Goals: Regain Mobility, Decrease Pain, Use Hand/Wrist/Arm Normally Again and Be More Independent in ADLS Goal:: pt will report IND with open jar lid at TANIA level by d.c Goal:: pt will demo a increase in right wrist AAROM equal to left without reports of pain by dc Goal:: pt will report no pain greater than 1/10 with use of right UE with ADls and IADLs. Goal:: Pt will demo understanding of work/lifting and carry ergonomics to decrease stress on tendons to increase pts independent with ADLs, IADLS and work tasks by d/c. Pt will demo understanding of using supportive bracing 80% of workday/ADLS to decrease stress on tendon origin to allow healing and decrease pain by end of 2nd session. pt will demo understanding of using supportive tape to right wrist to limit stress on FCU and support TFCC region by end of 2nd visit. Plan Plan: Pt to tape when hiking and to do isometrics at home. pt d/c D/C Information Discharge Comments: pt was seen for 10 OT sessions- pt made gains but still has pain when palpating around carpal bones and TFCC area- at this time pt to cont. with wrist isometric, bracing at night - tape when walking with walking sticks. pt to return to . possible further testing or imaging. pt agrees with D/C. d/c sentence: If there are questions or concerns regarding this patient's occupational therapy, please fell free to call me at [phone]. Thank you for the referral of this patient. Sincerely, Courtney Jarvis, OTR/L, CHT
== END 2023-12-24 19:00 | disposition home or self-care (01) ==
LOC: PT 16:00
PROVIDERS: PCP Family Medicine; Referring Provider Family Medicine; Visit Provider Family Medicine
DX: M25.511 Pain in right shoulder (principal); M67.833 Other specified disorders of tendon, right wrist; M25.531 Pain in right wrist
CPT/HCPCS: 97035; 97110; 97140; 97161; 97166; 97530

== ENCOUNTER → 2024-02-08 | Outpatient (CLI) | payer MEDICARE, OTHER, SELFPAY ==
[2021-06-06 13:15] VITALS: BMI 29.0
--- NOTE | 2024-02-08 15:01 | RAD_ITS ---
INDICATION: pain, chronic EXAMINATION/TECHNIQUE: X-RAY - RIGHT XR Shoulder 4VIEWS COMPARISON: FINDINGS: SOFT TISSUES: No soft tissue swelling or gas. No radiopaque foreign body. BONES/JOINTS: No acute fracture or subluxation.. Normal alignment. Preservation of the joint space.. No sclerotic or destructive changes observed. RAD/Shoulder min 2 Views IMPRESSION: No acute bony injury. MRI may be utilized for evaluation of rotator cuff injury if suspected. Electronically Signed: Ryan Ahumada DO at 16:11 EST ,
--- NOTE | 2024-02-08 15:01 | RAD_ITS ---
EXAM: XR LEFT SHOULDER COMPLETE, 2 OR MORE VIEWS CLINICAL INDICATION: pain, chronic TECHNIQUE: Two or more views of the left shoulder. COMPARISON: November 02, 2021 chest radiograph. FINDINGS: BONES/JOINTS: Unremarkable. No acute fracture. No subluxation. Normal alignment. Preservation of the joint space. No sclerotic or destructive changes observed. SOFT TISSUES: Unremarkable. No soft tissue swelling or gas. No radiopaque foreign body. RAD/Shoulder min 2 Views IMPRESSION: Negative left shoulder x-rays. Electronically Signed: Carmen Luna MD at 1:51 EST ,
== END | disposition home or self-care (01) ==
LOC: MTRAD 14:58
PROVIDERS: PCP Family Medicine; Referring Provider Family Medicine; Visit Provider Family Medicine
DX: M25.511 Pain in right shoulder (principal); M25.512 Pain in left shoulder; G89.29 Other chronic pain
CPT/HCPCS: 73030

== ENCOUNTER → 2024-03-01 | Outpatient (CLI) | payer MEDICARE, OTHER, SELFPAY ==
[2021-06-06 13:15] VITALS: BMI 29.0
--- NOTE | 2024-03-01 07:28 | MRI_ITS ---
STUDY: MRI LEFT SHOULDER REASON FOR EXAM: Male, 73 years old. Failed PT, pain, LIMITED ROM LT SHOULDER TECHNIQUE: Standardized fat and water weighted pulse sequences were obtained in all 3 orthogonal planes. COMPARISON: Left shoulder radiographs dated 02/08/2024. FINDINGS: There is a moderate grade partial thickness articular surface tear of the distal supraspinatus tendon insertion, overall measuring 6 mm in length (coronal T2 series 6 images 9-10) and 7 mm in width (sagittal T2 series 7 image 17; axial PD series 8 image 8) Normal infraspinatus tendon. Normal subscapularis tendon. Normal teres minor tendon. Normal supraspinatus muscle. Normal infraspinatus muscle. Normal subscapularis muscle. Normal teres minor muscle. Normal glenohumeral articulation. Normal humeral head and visualized proximal humerus. Normal biceps labral complex. Normal intracapsular long biceps tendon. Normal labrum. Normal capsulo-ligamentous complex. Normal rotator interval. There is minimal acromioclavicular arthrosis. There is a Type II morphology (curved), with a neutral orientation. There is no subacromial-subdeltoid bursal fluid. Normal visualized coracohumeral and coracoacromial ligaments. Normal quadrilateral space. Normal axillary space. Normal deltoid muscle. Normal trapezius muscle. MRI/Upper Ext Joint Only(Routine) IMPRESSION: 6 x 7 mm moderate grade partial thickness articular surface tear of the distal supraspinatus tendon insertion. Minimal acromioclavicular arthrosis. Electronically Signed: Anthony Santiago MD at 9:54 EST ,
== END | disposition home or self-care (01) ==
LOC: MRI 07:18
PROVIDERS: PCP Family Medicine; Referring Provider Family Medicine; Visit Provider Family Medicine
DX: M25.512 Pain in left shoulder (principal)
CPT/HCPCS: 73221

== ENCOUNTER → 2024-04-28 | Outpatient (CLI) | payer MEDICARE, OTHER, SELFPAY ==
[2021-06-06 13:15] VITALS: BMI 29.0
--- NOTE | 2024-04-28 08:11 | PCM.CR.HP2 ---
CR - History & Physical General Arrival date:: 04/28/24 Arrival time:: 08:11 Date of Referral:: 04/23/24 Date of CR Evaluation:: 04/28/24 Referring Physician: Dr. Reese Verduzco Primary Diagnosis: PCI with stent History of Present Cardiac Event Onset Date PTCA or coronary stenting:: Yes (04/14/24 onset) Medications Ambulatory Orders ?Medication ?Instructions ?Recorded cetirizine 10 mg tablet (Zyrtec) 5 mg PO QDAY PRN Allergies 02/07/17 multivitamin with folic acid 400 1 tab PO DAILY 01/07/19 mcg tablet albuterol sulfate 90 mcg/actuation 1 dose inhalation DAILY PRN 11/13/19 aerosol inhaler shortness of breath or wheezing amlodipine 2.5 mg tablet 2.5 mg PO QHS 04/06/21 atorvastatin 40 mg tablet 80 mg PO QHS 04/06/21 evolocumab 420 mg/3.5 mL 420 mg subcut .montly 04/06/21 subcutaneous wearable injector (Repatha Pushtronex) clopidogrel 75 mg tablet 75 mg PO DAILY 01/03/23 Allergies Allergies Food Allergies: Uncoded Allergy (Verified 01/05/23 10:19) Hives welsh food ragweed pollen Allergy (Verified 01/05/23 10:19) Other itching Sleep Disorder Evaluation Hx of Sleep Apnea: No Do you snore loudly (louder than talking or can be heard through closed doors)?: Yes Do you often feel tired/ fatigued/ sleepy during daytime?: No Has anyone observed you stop breathing during sleep?: No History of Hypertension (for STOP score): No STOP Results: Negative Advanced Directives Advanced Directives Power of Shipping And Receiving: Yes Living Will: Yes Advance Directives Information Provided: Yes Advance Directives on File: No DNR Order?:: No Past Medical History Covid-19 Screening Physicial Symptoms Other Clinical Concerns Exposure Risk Pertinent Comorbidities 65 years or older:: Yes Has a serious heart condition:: Yes Past Medical Illness Past Medical History (Updated 01/03/23 @ 12:04 by Marline Weiner) Loss of hearing H91.90 Wears glasses Z97.3 Alcohol use Z78.9 OCC Back pain M54.9 OCC Shortness of breath on exertion R06.02 WITH 2 FLIGHTS OF STAIRS Non-smoker Z78.9 Leg cramps R25.2 OCC History of edema Z87.898 MILD LOWER LEGS History of stress test Z92.89 2020 History of echocardiogram Z92.89 2022 Cardiology follow-up encounter Z09 [facility] LAST VISIT 05/2020. [facility] DR VERDUZCO 06/2022 History of rheumatic fever Z86.79 Atrial flutter with rapid ventricular response (01/28/21) I48.92 Postoperative atrial fibrillation (01/28/21) I97.89, I48.91 Atherosclerotic heart disease of [place] coronary artery without angina pectoris I25.10 Nonrheumatic aortic (valve) stenosis with insufficiency I35.2 Transient ischemic attack G45.9 Atherosclerosis of coronary artery bypass graft without angina pectoris I25.810 Nonrheumatic mitral (valve) insufficiency I34.0 CVA (cerebral vascular accident) (2010) I63.9 Lacunar Infarct. NO DEFICITS Paroxysmal atrial fibrillation I48.0 Personal history of colonic polyps Z86.010 Hyperlipidemia E78.5 DDD (degenerative disc disease), cervical M50.30 Arthritis M19.90 Past Surgical History Past Surgical History (Updated 01/03/23 @ 12:04 by Marline Weiner) Hx of hemorrhoidectomy Z98.890 History of excision of lesion Z98.890, Z87.2 BENIGN TUMOR REMOVED Hx of colonoscopy Z98.890 History of left heart catheterization (08/30/20) Z98.890 01/19/2020, 08/30/20 History of coronary artery stent placement (01/19/20) Z95.5 PCI-MELVIN-Mid SVG-OM1 w/ 3.0 x 12 mm Synergy MR Stent 12/03/17; HJI-HSB-Jfgrco LM and Ostial LCx w/ 3.0 x 24 mm Synergy Stent 01/30/19; BGX-LJSY-INS-Ostial LCx, RFK-ZTV-Xvdc SVG-LAD w/ 4. x 16 mm Synergy Stent and Mid SVG-LAD w/ 4.0 x 32 mm Synergy Stent. 01/19/2020 H/O aortic valve replacement (01/26/21) Z95.2 AVR 12/03/1995; TAVR 23 mm Hinds Sapin S3 valve 04/23/18; ReDo Biobentall (25mm Konect) 01/26/2021 H/O coronary artery bypass surgery (01/26/21) Z95.1 CABG x 3: SVG-LAD, SVG-OM1, SVG-RPDA 06/23/2010; Re-Do x 3 Redo Biobentall (25mm Konect), CABG x 3: (Radial-PDA, SVG-OM1, SVG-OM2) 01/26/2021 Surgical History: - (replacement of aortiv valve) Family History Summary Family History Brother CAD (coronary artery disease) 2nd brother CABG Brother CAD (coronary artery disease) 3rd brother PCI-Stents Brother CAD (coronary artery disease) 4 brother PCI-Stents and CABG Brother CAD (coronary artery disease) 6th brother PCI-Stents Sister Hypertension CAD (coronary artery disease) CABG age 70 Other Colon cancer Social History Smoking History Smoking Status: Never smoker Alcohol Use Alcohol Usage: Yes (occas.) Occupation Occupation (List type of work in comments):: Employed Hours worked per day:: 2 Hobbies, Recreation, Social Activities Hobbies: Other (softball) Recreational Activities: I am able to engage in all my recreational activities Social Environment Status Marital Status: Current Living Arrangements Living Environment:: Spouse Children How many children do you have?: 2 Do any of your children live nearby?: Yes Safety Do you feel safe in your surroundings?: Yes Assistance Do you need any assistance at home?: no Review of Systems Review of Systems Hints Review of Present Symptoms: Reports Appetite - Normal and Appetite - Special Diet; Denies Shortness of Breath at Rest, Shortness of Breath with Exertion, PVD, Operative Discomfort, Angina, Wound Healing, Dizziness/Lightheadedness, Fatigue, Heart Arrhythmia/Irregularities, Sleep - Normal or Sexual Changes Pain Is Patient Pain Free?: No Pain Location: upper extremity Pain Level: 3/10 Risk Factor Assessment Chief Complaint Chief Complaint: PCI with stent Vital Signs Pulse Ox: 100 Blood Pressure: 99/59 Pulse Pulse Rate: 64 Hypertension Blood Pressure Sitting - Right Arm: 99/59 Obesity Height: 5 ft 4 in Weight:: 173 lb Weight in Pounds: 173.0 lbs Body Mass Index (BMI): 29.7 Nutritional Referral for Obesity: Yes Physical Inactivity Physical Inactivity: Reg Exercise 30 min/day Risk Stratification Risk Guidelines: Lowest Risk: Risk Factor for Smoking and Risk Factor for Depression, Moderate Risk: Risk Factor for Diabetes, Risk Factor for Obesity, Risk Factor for Hypertension and Risk Factor for Sedentary Lifestyle and Highest Risk: Risk Factor for Dyslipidemia For Smoking Smoking Risk Guidelines For Dyslipidemia Dyslipidemia Risk Guidelines For Diabetes Mellitus Diabetes Risk Guidelines For Obesity/Overweight Obesity/Overweight Risk Guidelines For Hypertension Hypertension Risk Guidelines For Sedentary Lifestyle Sedentary Lifestyle Risk Guidelines For Depression Depression Risk Guidelines Family History Family History Brother CAD (coronary artery disease) Brother CAD (coronary artery disease) Brother CAD (coronary artery disease) Brother CAD (coronary artery disease) Sister Hypertension CAD (coronary artery disease) Other Colon cancer Motivation Motivation to Participate On a scale of 1 to 10, how prepared are you to commit to attending program?: 10 What do you see as barriers to successfully being able to complete the program?: nothing What do you see as the benefits of succesfully completing the program? In other words, what do you hope to get out of participating in the program?: confidence Are there issues you are dealing with that will interfere with completing the program?: no Do you have a spouse or signficant other, family or friends who will help support you to complete the program?: yes
[2024-04-28 08:22] VITALS: BP 99/59; PULSE 64; O2SAT 100
--- NOTE | 2024-04-28 08:33 | PCM.CR.ITP ---
Diagnosis General Information Admitting Diagnosis: PCI with stent Personal Learning Style:: Audio/Visual Barriers to Learning: No Barriers Stage of change r/t lifestyle modifications:: Contemplation Gave educational material for:: Treating Heart Disease, How The Heart Works, What it means to have Heart Disease, How Coronary Artery Disease is Diagnosed, Heart Procedures, What Heart Medications Do, Risk Factors & Modifications, Living an Active Life, Nutrition, Emotions & Heart Disease, Stress Management & Relaxation and Sleep Disorders & Heart Disease Education/Goals Cardiac Rehabilitation Goals Personal Goals: Initial Assessment: Participate in home exercise program, Get back to work, or to resume activities faster, Improve diet and eating habits (eat healthier) and Control risk factors (learn risk factor modification) Scale for measuring improvement of personal goals Diagnosis & Disease Process Outcomes/Goals: Pt IDs own risk factors & lifestyle modifications by Session 10, Verbalizes symptoms of angina & response by session 3., Pt independently manages and Other Additional Outcomes/Goals: Plan/Interventions: Assist Pt to ID & engage in lifestyle modification to reduce CVD risk, Instruct on individual risk factors, Review symptoms of angina & emergency actions, Review secondary diagnosis & identify educational needs. and Other see comment 30 day Reassessments:: Not Met 30 day Reassessments:: Not Met 30 day Reassessments:: Not Met 30 day Reassessments:: Not Met Final Reassessments:: Not Met Safety Referral to Physical Therapy: No Referral to [facility] Case Management: No Fall Risk Assessed:: Yes Assistive Devices:: None Exercise - Initial Assessment Visit Date of Eval: 04/28/24 (initial eval ) Mets: Pre-: >3 METS for 30 minutes by discharge, >5 METS for 30 minutes by discharge, >7 METS for 30 minutes by discharge and Unable to meet goal due to: (see comment below) Physician Prescribed Exercise Modalities: Treadmill, Rower, Schwinn Airdyne AD-7, SciFit Stepper, SciFit Pro-II Ergometer and SciFit Lateral [place] Frequency: 3x/week for 12 weeks [36 sessions] Intensity: 60-80% of age predicted maximum heart rate reserve Duration: 30 - 45 minutes Current METSs:: 3 Target Heart Rate:: 89-111 Resting Blood Pressure: 99/59 EKG Type: NSR Outcomes & Goals Goals:: Verbalizes understanding of THR, RPE & goal METS by session 6, Documents in home exercise log/reports 30 min aerobic 5 day/wk by DC, Demonstrates accurate pulse taking by DC and Other additional outcome/goals: see below Intervention & Plan Exercise Program Goals: Instruct on personal THR & RPE, Instruct on MET level & personal MET goal, Show patient to take own pulse /validate performance until accurate, Instruct on home exercise and Other additional plan/int Physical Activity Home Exercise Physical Activity - Home Exercise: Safe Exercise, Warm-up, Self-monitoring, Cool-Down, Home Exercise > 30 min Daily and Sitting Time <3 hours/daily Outcomes & Goals Outcomes/Goals: Demonstrates correct Warm-up/exercise Cool-Down (S3) if = 2.5 METs, Verbalizes symptoms of exercise intolerance by Session 3 (S3), Demonstrate safe equipment use (S3) & follows exercise prescrition (6) and Other: See below Intervention & Plan Plan/Intervention: Instruct warm-up & cool-down if exercising at > 2 METs, Instruct on symptoms of exercise intolerance & actions to take, Instruct & monitor on saf, Assess intial functional capacity & safety risk and Other See below Nutrition - Initial Assessment Program Goals Nutrition Program Goals Patient has diagnosis of Hyperlipidemia (ICD E78)?: Yes Visit Date of Eval: 04/28/24 (initial eval ) Cholesterol/Lipids (Other Core Measures) Determine presence & major risk factors that modify LDL goal: Hypertension or hypertensive medication, Low HDL cholesterol <40 mg/dL*, Family history of premature CHD in Male < 55 years: female <65 yearsFa and Age men > 45 years; women >/= 55 years Outcomes/Goals: Pt IDs own risk factors & lifestyle modifications by Session 10, Verbalizes symptoms of angina & response by session 3., Pt independently manages and Other Additional Outcomes/Goals: Intervention/Plan: Advocate for lipid panel cholesterol medication if applicable, Instruct on personal lipid levels & lipid goals/NCEP guidelines, Instruct on cholesterol and Other additional plan/int Referral to dietitian:: Yes Diabetes (Other Core Measures) Diabetes Type: Not Applicable Weight Mgt (Other Care) Height: 5 ft 4 in Weight:: 173 lb BMI: 29.7 Diagnosis Overweight/Obesity BMI> 30% ICD-10 E66: No Diagnosis High BMI/Morbid Obesity BMI> 35% ICD-10 Z68: No Outcomes/Goals: Pt sets, maintains & shows weight loss goal & trend during rehab and Other additional outcomes/goals Intervention/Plan: Instruct on ideal BMI & set weight loss goal w/patient, Assist pt to ID & incorporate diet changes for weight loss by S9, Refer to Structured Weight Loss program as appropriate, Encourage goal of using 250-300dcal per session for weight loss and Other additional plan/interventions Healthy Eating Habits Will attend diet classes:: Yes Outcomes/Goals:: Consume diet rich in vegs,fruits,whole grain/high fiber,fish,lean meat, Limit sat/trans fats,cholesterol & added salts & sugars and Other additional outcome/goals: Intervention/Plan:: Assess current eating habits and Other Additional plan/interventions Education Gave educational materials for:: Signs & symptoms of hypoglycemia, Signs & symptoms of hyperglycemia, Relate diabetes to coronary artery disease and Healthy eating Core - Initial Assessment Visit Date of Eval: 04/28/24 (initial eval ) Medication Compliance Preventative Medication(s):: Aspirin, Clopidogrel/P2Y12 inhibit and Statin/lipid H/O mental health issues: depression, anxiety, or addiction?: No Doesn?t believe in the benefits of treatment?: No Believes medications are unnecessary or harmful?: No Has a concern about medication side effects?: No Expresses concern over the cost of medications?: No Outcomes/Goals: Verbalizes medications,desired effect & common side effects @ DC, Pt self-reports following medication regimen, Keeps card in wallet w/medications listed by DC and Other additional outcome/goals: Interventions/plans: Instruct on medication effects & side effects, Review medication list w/patient every two weeks, Instruct importance of taking meds as ordered & assist problem solving and Other additional Tobacco Use Tobacco Use: Non-smoker Hypertension Resting Blood Pressure:: 99/59 [place] [employer] Hypertension Guidelines Outcomes/Goals: Able to verbalize/achieve optimal blood pressure <130/80, Incorporates diet changes & exercise for blood pressure control by DC and Other additional outcomes/goals Interventions/plan: Instruct on optimal blood pressure, hypertension & medications, Instruct on effects of sodium, alcohol, stress, exercise &hypertension and Other additional plan/interventions Tobacco Cessation Referral Smoking Cessation Referral:: No Individual Education/Counseling:: No Education Schedule Given:: Yes Psychosocial - Initial Assess VIsit Date of Eval: 04/28/24 (initial eval ) History of previous Mental disease:: No Target Goals Target Goals Psychosocial Test Tool Used:: Ferrans Power QOL Cardiac and PHQ-9 Questionnaire phq-9 Severity Referral to Behavioral Health PS - Interventions: Yes: Attend Stress Management Classes Outcomes/Goals: See list Psychosocial Outcomes/Goals:: ID's personal stressors & 2 strategies to manage stress by discharge and Other Additional outcome/goals: Intervention/Plan: See List Interventions/Plan:: Assess stressors,coping strategies & signs of derpression on admission, Instruct/assist pt to develop coping & personal stress Mgt strategies, Refer to Behavioral Health if appropriate, Refer to Physician if appropriate, Instruct patient to recognize signs & symptoms of depression, Instruct patient to recog and Other additional plan/intervention Patient Health Questionnaire PHQ-9 Screening Initial Assessment: 1. Little interest or pleasure in doing things: Not at all 2. Feeling down, depressed, or hopeless: Not at all 3. Trouble falling or staying asleep, or sleeping too much: Several days 4. Feeling tired or having little energy: Several days 5. Poor appetite or overeating: Not at all 6. Feeling bad about yourself -- or that you are a failure or have let yourself or your family down: Not at all 7. Trouble concentrating on things, such as reading the newspaper or watching television: Not at all 8. Moving or speaking so slowly that other people could have noticed. Or the opposite - being so fidgety or restless that you have been moving around a lot more than usual: Not at all 9. Thoughts that you would be better off , or of hurting yourself in some way: Not at all How difficult have these problems made it for you to do your work, take care of things at home, or get along with other people?: Not difficult at all Total Score: 2 JOSHUA-Q SV Test Statements CAD is a disease of the arteries in the heart: False Examples of risk factors for heart disease: True Angina is chest pain or discomfort: True The benefits of resistance training include: True Eating more meat and dairy products: False Anti-platelet medications such as aspirin are important: True The only effective way to manage stress: False An exercise warm-up slowly increases heart rate: True Prepared, processed foods usually have high sodium: True Depression is common after a heart attack: I Don't Know The statin medications lower cholesterol: True To control blood pressure, lower the amount of sodium: True If someone gets chest discomfort during walking: False Transfats are partially hydrogenated vegetable oils: True Sleep apnea that is not treated increases the risk: True To control cholesterol, one should become a vegetarian: False Someone knows if he/she is exercising at the right level: True Diabetes cannot be prevented with exercise & health eating: I Don't Know Stress is a large risk for heart attack: True A diet that can help lower blood pressure is rich in: True Total Score Total Correct Responses: 17 Nutrition Survey Nutrition Survey Instructions Scoring Instructions Nutrition Survey Initial: Have you lost >10 lbs over the past 2 months without trying?: No Are you following a special diet at home for diabetes, low fat, or low salt?: No Are you interested in meeting with a dietitian for help understanding your diet?: Yes Do you eat less than 3 meals a day?: No Do you eat fatty meats (garcia, sausage, ribs, etc), fried foods, desserts, large amounts of salad dressings, margarine, butter, or cheese most days?: No Do you have food allergies? [Enter types in comment field]: No Do you eat in restaurants more than 3 times a week?: No Do you season food with salt, seasoning salt, or garlic salt?: Yes Do you used canned, boxed, frozen meals, or soups, seasoning packets?: Yes Total Score:: 3 Exercise - 30-day Assessment Physician Prescribed Exercise Modalities: Treadmill, Rower, Schwinn Airdyne AD-7, SciFit Stepper, SciFit Pro-II Ergometer and SciFit Lateral Rotary Operator Exercise - 60-day Assessment Physician Prescribed Exercise Modalities: Treadmill, Rower, Schwinn Airdyne AD-7, SciFit Stepper, SciFit Pro-II Ergometer and SciFit Lateral [place] Exercise - 90-day Assessment Physician Prescribed Exercise Modalities: Treadmill, Rower, Schwinn Airdyne AD-7, SciFit Stepper, SciFit Pro-II Ergometer and SciFit Lateral Rotary Operator Exercise - Final/Discharge Physician Prescribed Exercise Modalities: Treadmill, Rower, Schwinn Airdyne AD-7, SciFit Stepper, SciFit Pro-II Ergometer and SciFit Lateral Rotary Operator Frequency: 3x/week for 12 weeks [36 sessions] Intensity: 60-80% of age predicted maximum heart rate reserve Current METSs:: 3 Target Heart Rate:: 89-111 Nutrition - 30-Day Assessment Weight Mgt (Other Care) Height: 5 ft 4 in Weight:: 173 lb BMI: 29.7 Nutrition - 60-Day Assessment Weight Mgt (Other Care) Height: 5 ft 4 in Weight:: 173 lb BMI: 29.7 Core - Final Assessment Hypertension Resting Blood Pressure:: 99/59 [place] [employer] Hypertension Guidelines Core - 60-Day Assessment Hypertension Resting Blood Pressure:: 99/59 [place] [employer] Hypertension Guidelines Psychosocial - 30-Day Assess Target Goals Target Goals Referral to Behavioral Health PS - Interventions: Yes: Attend Stress Management Classes Psychosocial - 60-Day Assess Target Goals Target Goals Referral to Behavioral Health PS - Interventions: Yes: Attend Stress Management Classes Psychosocial - 90-Day Assess Target Goals Target Goals Referral to Behavioral Health PS - Interventions: Yes: Attend Stress Management Classes Psychosocial - Final Assessmen Target Goals Target Goals Referral to Behavioral Health PS - Interventions: Yes: Attend Stress Management Classes Nutrition - 90-Day Assessment Weight Mgt (Other Care) Height: 5 ft 4 in Weight:: 173 lb BMI: 29.7 Nutrition - Final Assessment Program Goals Patient has diagnosis of Hyperlipidemia (ICD E78)?: Yes Weight Mgt (Other Care) Height: 5 ft 4 in Weight:: 173 lb BMI: 29.7
[2024-04-28 08:39] VITALS: BP 99/59; BMI 29.7
[2024-04-28 08:43] VITALS: BP 99/59
[2024-04-28 08:47] VITALS: BMI 29.7
== END | disposition home or self-care (01) ==
PROVIDERS: PCP Family Medicine; Referring Provider Internal Medicine Interventional Cardiology; Visit Provider Internal Medicine Interventional Cardiology
DX: Z95.5 Presence of coronary angioplasty implant and graft (principal)

== ENCOUNTER 2024-05-19 14:15 | Outpatient (RCR) | payer MEDICARE, OTHER, SELFPAY ==
[2024-04-28 08:39] VITALS: BMI 29.7
== END 2024-05-19 23:59 ==
LOC: CR 14:15
PROVIDERS: PCP Family Medicine; Referring Provider Internal Medicine Interventional Cardiology; Visit Provider Internal Medicine Interventional Cardiology
DX: Z95.5 Presence of coronary angioplasty implant and graft (principal)
CPT/HCPCS: 93798

== ENCOUNTER 2024-06-02 15:30 | Outpatient (RCR) | payer MEDICARE, OTHER, SELFPAY ==
[2021-06-06 13:15] VITALS: BMI 29.0
--- NOTE | 2024-03-21 08:02 | HP.PTEVAL ---
Patient's Visit Information Visit Information Visit Information: CHLOE WILCOX is a 73 year old M referred to Physical Therapy by Dr. Tino Ac MD with a diagnosis of L RTC tear. Date of Evaluation: 03/17/24 Physical Therapist: Jeremy Medley DPT Visit Plan Frequency: 2-3x /Week Duration: 6 Weeks Plan: 1) DFM biceps and supraspinatus insertion 2) Inferior glides iwth shoulder abd and flexion motions 3) scapular and periscapular strengthening 4) once tolerating add in cuff stability/strengthening Subjective Subjective: Pt. is here today for his initial evaluation with diagnosis of L RTC. Pt. saw his physician whom felt he should start with conservative care then follow back up with him if not improving. Pt. reports increased pain at lateral aspect of his subacromial space. Pt. has no NT, but does have pain that radiates into his deltoid region. pt. reports pain with lifting, reaching and ADLs. He does play softball, but has had to refrain from this due to his arm bothering him. Pt. reports increased pain with sleeping on this side as well. Pt. is hopeful to reduce symptoms in order to get back to all recreational activities without limitatons. Pain L shoulder: Pain Intensity (Out of 10): 2 Pain Intensity Range: 0 and 5 Objective Objective: POSTURE: pt. has fairly normal posture in stance. PALPATION: pt. has mild increase in symptoms with subacromial spcae. He does have pain at biceps as well. NEURO: normal ROM: L shoulder: AROM: flexion 150deg increase NW, abd 140deg increase NE, functional ER C4 increase NW, functional IR L3 incfrease NW. PROM: Pain at end ranges, but close to full motion. MMT: Pt. has 5/5 strength except, abd 4/5 increase NW, flexion 4/5 increase NW, ER 4/5 increase NW. Special Tests L Shoulder Drop Sign - IS Test: Negative L Shoulder Empty Can - SS: Positive L Shoulder Belly Press - SupScap: Negative L Shoulder Neer - Impingement: Positive L Shoulder Seo Silvio - Impingement: Positive L Shoulder Speeds Test - Labrum/Biceps: Positive Balance/Special Test Scores Quick DASH Score: 36.3625 Goals Goal 1:: LTG: Pt. to be I with HEP. Goal Time Frame: 4-6 Weeks Goal 2:: STG: pt. to sleep throughout the night without increase in symptoms. Goal Time Frame: 2-4 Weeks Goal 3:: LTG: Pt. to have symmetrical strength between BUEs. Goal Time Frame: 4-6 Weeks Goal 4:: LTG: Pt. to have full pain free L shoulder ROM. Goal Time Frame: 4-6 Weeks Goal 5:: LTG: Pt. to complete all ADls without increase in L shoulder pain. Goal Time Frame: 4-6 Weeks Rehabilitation Potential Physical Therapy Diagnosis: Pt. has signs and symptoms consistent with L RTC tear. Pt. has marked pain with lifting his arm and palpation of biceps and distal RTC insertion. He has limited ROM secondary to pain and limited OF use secondary to pain. Rehabilitation Potential: Good Anticipated Interventions Patient/Client Instruction: Educate patient on: Condition, Plan of Care, Risk Factors and Benefits of Fitness Program For the Purpose of:: To improve decision making, To facilitate caregiver knowledge, To improve self management, To prevent re-injury and To improve ability to perform tasks related to life management Therapeutic Exercise to Include: Strength training, Power training, Flexibilty training, Passive ROM, Active ROM and Scapular Strength/Stabilization For the Purpose of:: To decrease pain, To increase ROM, To improve nutrient delivery to tissue, To increase oxygenation perfusion, To improve muscle performance and motor function and To improve ability to perform ADL's Manual Therapy Techniques to Include: Mobilization and Soft tissue mobilization Comment: DFM For the Purpose of:: To decrease pain, To increase ROM, To improve nutrient delivery to tissue, To increase oxygenation perfusion, To improve muscle performance and motor function, To decrease soft tissue restriction and To increase flexibility/ROM Ultrasound (thermal/non thermal): Yes For the Purpose of:: To decrease pain, To decrease swelling/inflammation and To increase ROM Text: Thank you for the opportunity to evaluate your patient. For Medicare and Medicare HMO plans, please review the plan of care and approve it. It will need to be FAXED BACK to us at [phone] for Medicare purposes. For Medicare only, by signing this I certify the plan of care. Please let me know if there are questions or concerns regarding this plan of care. Physician Signature: Date:
--- NOTE | 2024-04-30 18:58 | HP.PTREVAL ---
Re-Evaluation Intro: Dr. Tino Ac MD, It has been my pleasure to treat CHLOE WILCOX over the last 10 visits for L RTC tear. Please see the progress note below for an update on the physical therapy plan of care! Subjective Subjective: pt. reports overall doing better, but still has problems with lifting grand children and with moving in awkward positions. Objective Objective/Function: L shoulder AROM: flexion 150deg, abd 140deg increase NW at 95deg., functional IR L3 increase NW, functional ER NE. PROM: L shoulder: flexion 170deg, abd 165deg , ER at 90deg of abd 90deg mild increase NW, functional IR at 90deg of abd 50deg. MMT: R shoulder: flexion 5/5, abd 5/5, ext 5/5, ER 5/5, IR 5/5 L shoulder: flexion 4+/5, abd 4/5, ext 5/5, ER 4+/5, IR 5/5 Pt. still has pain with OH movements and with abduction. Pt. would like to be able to lift his grandchildren and be able to move with out fear of increased L shoulder pain. I would suggest continuing to work on ROM and deltoid, RTC strengthening. Plan Plan Plan: 1) DFM biceps and supraspinatus insertion 2) Inferior glides iwth shoulder abd and flexion motions 3) scapular and periscapular strengthening progress RTC and deltoid strengthening. Balance/Gait/Functional tests Balance/Special Test Scores Quick DASH Score: 25.0000 Goals Goals Goal 1:: LTG: Pt. to be I with HEP. Goal Time Frame: 4-6 Weeks Goal Progress: Progressing Goal 2:: STG: pt. to sleep throughout the night without increase in symptoms. Goal Time Frame: 2-4 Weeks Goal Progress: Goal Met Goal 3:: LTG: Pt. to have symmetrical strength between BUEs. Goal Time Frame: 4-6 Weeks Goal Progress: Progressing Goal 4:: LTG: Pt. to have full pain free L shoulder ROM. Goal Time Frame: 4-6 Weeks Goal Progress: Progressing Goal 5:: LTG: Pt. to complete all ADls without increase in L shoulder pain. Goal Time Frame: 4-6 Weeks Goal Progress: Progressing Anticipated Interventions Anticipated Interventions Patient/Client Instruction: Educate patient on: Condition, Plan of Care, Risk Factors and Benefits of Fitness Program For the Purpose of:: To improve decision making, To facilitate caregiver knowledge, To improve self management, To prevent re-injury and To improve ability to perform tasks related to life management Therapeutic Exercise to Include: Strength training, Power training, Flexibilty training, Passive ROM, Active ROM and Scapular Strength/Stabilization For the Purpose of:: To decrease pain, To increase ROM, To improve nutrient delivery to tissue, To increase oxygenation perfusion, To improve muscle performance and motor function and To improve ability to perform ADL's Manual Therapy Techniques to Include: Mobilization and Soft tissue mobilization Comment: DFM For the Purpose of:: To decrease pain, To increase ROM, To improve nutrient delivery to tissue, To increase oxygenation perfusion, To improve muscle performance and motor function, To decrease soft tissue restriction and To increase flexibility/ROM Ultrasound (thermal/non thermal): Yes For the Purpose of:: To decrease pain, To decrease swelling/inflammation and To increase ROM Re-Evaluation Ending Re-evaluation ending: Please do not hesitate to contact me at [phone] by phone or if you have questions or concerns regarding this new plan of care! Sincerely, Jeremy Medley DPT
--- NOTE | 2024-06-03 08:47 | HP.PTDCSUM ---
Discharge Summary D/C summary: It has been my pleasure to treat CHLOE WILCOX referred by Dr. Tino Ac MD, with the diagnosis of L RTC tear for a total of 19 visit(s). Discharge Date: 06/03/24 Please see the following information for a summary of their discharge status. Subjective Subjective: Pt. reports overall doing well. Pt. reports having some soreness with baseball activities, but overall doing well. He reports having good HEP and good compliance. Pt. reports being 80% better overall. Pain L shoulder: Pain Intensity (Out of 10): 0 Overall Improvement % Improvement: 75 Objective Objective/Function: Pt. has close to full ROM of his L shoulder. Pt. did have some soreness with OP at end ranges. MMT: L shoulder: flexion 21#, abd 20#, ER 17, IR 28 R shoulder: flexion 24#, abd 23#, ER 21, IR 27 Pt. is overall doing well. He does have some soreness Pt. given ER/IR and mid rows for HEP. Goals Goal 1:: LTG: Pt. to be I with HEP. Goal Progress: Goal Met Goal 2:: STG: pt. to sleep throughout the night without increase in symptoms. Goal Progress: Goal Met Goal 3:: LTG: Pt. to have symmetrical strength between BUEs. Goal Progress: Goal Met Goal 4:: LTG: Pt. to have full pain free L shoulder ROM. Goal Progress: Goal Met Goal 5:: LTG: Pt. to complete all ADls without increase in L shoulder pain. Goal Progress: Goal Met Plan Plan: Pt. to be DC from PT at this point in time. D/C Information d/c sentence: If there are questions or concerns regarding this patient's physical therapy, please feel free to call me at [phone]. Thank you for the referral of this patient. Sincerely, Jeremy Gil Sipos, DPT Balance/Gait/Functional tests Balance/Special Test Scores Quick DASH Score: 0 Improvement % Improvement: 75
== END 2024-06-02 19:00 | disposition home or self-care (01) ==
LOC: PT 15:30
PROVIDERS: PCP Family Medicine; Referring Provider Orthopaedic Surgery; Visit Provider Orthopaedic Surgery
DX: M75.102 Unspecified rotator cuff tear or rupture of left shoulder, not specified as traumatic (principal)
CPT/HCPCS: 97110; 97140; 97161; 97530

== ENCOUNTER 2024-06-18 14:15 | Outpatient (RCR) | payer MEDICARE, OTHER, SELFPAY ==
[2024-04-28 08:39] VITALS: BMI 29.7
--- NOTE | 2024-05-28 11:21 | PCM.CR.ITP ---
Exercise - Initial Assessment Visit Session #:: 12 Physician Prescribed Exercise Modalities: Treadmill, Schwinn Airdyne AD-7 and SciFit Stepper Nutrition - Initial Assessment Weight Mgt (Other Care) Height: 5 ft 4 in Weight:: 173 lb 8 oz BMI: 29.7 Psychosocial - Initial Assess Target Goals Target Goals Referral to Behavioral Health PS - Interventions: Yes: Attend Stress Management Classes Patient Health Questionnaire PHQ-9 Screening 30-Day Re-eval Assessment: 1. Little interest or pleasure in doing things: Not at all 2. Feeling down, depressed, or hopeless: Not at all 3. Trouble falling or staying asleep, or sleeping too much: Several days 4. Feeling tired or having little energy: Several days 5. Poor appetite or overeating: Not at all 6. Feeling bad about yourself -- or that you are a failure or have let yourself or your family down: Not at all 7. Trouble concentrating on things, such as reading the newspaper or watching television: Not at all 8. Moving or speaking so slowly that other people could have noticed. Or the opposite - being so fidgety or restless that you have been moving around a lot more than usual: Not at all 9. Thoughts that you would be better off , or of hurting yourself in some way: Not at all How difficult have these problems made it for you to do your work, take care of things at home, or get along with other people?: Not difficult at all Total Score: 2 Nutrition Survey Nutrition Survey Instructions Scoring Instructions Exercise - 30-day Assessment Visit Date of Eval: 05/28/24 Session #:: 12 Physician Prescribed Exercise Modalities: Treadmill, Schwinn Airdyne AD-7 and SciFit Stepper Frequency: 3x/week for 12 weeks [36 sessions] Intensity: 60-80% of age predicted maximum heart rate reserve Duration: 30 - 45 minutes Current METSs:: 5.1 Target Heart Rate:: 89-111 Current RPE:: 12-13 Maximum Excercise HR:: 112 Resting Blood Pressure: 140/70 Maximum Exercise Blood Pressure: 128/80 EKG Type: NSR to ST Outcomes & Goals Goals:: Verbalizes understanding of THR, RPE & goal METS by session 6, Documents in home exercise log/reports 30 min aerobic 5 day/wk by DC, Demonstrates accurate pulse taking by DC and Other additional outcome/goals: see below Intervention & Plan Exercise Program Goals: Instruct on personal THR & RPE, Instruct on MET level & personal MET goal, Show patient to take own pulse /validate performance until accurate, Instruct on home exercise and Other additional plan/int Physical Activity Home Exercise Physical Activity - Home Exercise: Safe Exercise, Warm-up, Self-monitoring, Cool-Down, Home Exercise > 30 min Daily and Sitting Time <3 hours/daily Outcomes & Goals Outcomes/Goals: Demonstrates correct Warm-up/exercise Cool-Down (S3) if = 2.5 METs, Verbalizes symptoms of exercise intolerance by Session 3 (S3), Demonstrate safe equipment use (S3) & follows exercise prescrition (6) and Other: See below Intervention & Plan Plan/Intervention: Instruct warm-up & cool-down if exercising at > 2 METs, Instruct on symptoms of exercise intolerance & actions to take, Instruct & monitor on saf, Assess intial functional capacity & safety risk and Other See below 30-day Reassessments 30 day Reassessments:: Progressing Reassessment Notes & Comments:: RPE explained to pt. Pt is able to return demonstration in his daily sessions. Exercise - 60-day Assessment Physician Prescribed Exercise Modalities: Treadmill, Schwinn Airdyne AD-7 and SciFit Stepper Exercise - 90-day Assessment Physician Prescribed Exercise Modalities: Treadmill, Schwinn Airdyne AD-7 and SciFit Stepper Exercise - Final/Discharge Physician Prescribed Exercise Modalities: Treadmill, Schwinn Airdyne AD-7 and SciFit Stepper Nutrition - 30-Day Assessment Program Goals Nutrition Program Goals Patient has diagnosis of Hyperlipidemia (ICD E78)?: Yes Visit Date of Eval: 05/28/24 Session #:: 12 Cholesterol/Lipids (Other Core Measures) Determine presence & major risk factors that modify LDL goal: Hypertension or hypertensive medication, Low HDL cholesterol <40 mg/dL*, Family history of premature CHD in Male < 55 years: female <65 yearsFa and Age men > 45 years; women >/= 55 years Outcomes/Goals: Pt IDs own risk factors & lifestyle modifications by Session 10, Verbalizes symptoms of angina & response by session 3., Pt independently manages and Other Additional Outcomes/Goals: Intervention/Plan: Advocate for lipid panel cholesterol medication if applicable, Instruct on personal lipid levels & lipid goals/NCEP guidelines, Instruct on cholesterol and Other additional plan/int Diabetes (Other Core Measures) Diabetes Type: Not Applicable Weight Mgt (Other Care) Height: 5 ft 4 in Weight:: 173 lb 8 oz BMI: 29.7 Diagnosis Overweight/Obesity BMI> 30% ICD-10 E66: No Diagnosis High BMI/Morbid Obesity BMI> 35% ICD-10 Z68: No Outcomes/Goals: Pt sets, maintains & shows weight loss goal & trend during rehab and Other additional outcomes/goals Intervention/Plan: Instruct on ideal BMI & set weight loss goal w/patient, Assist pt to ID & incorporate diet changes for weight loss by S9, Refer to Structured Weight Loss program as appropriate, Encourage goal of using 250-300dcal per session for weight loss and Other additional plan/interventions Healthy Eating Habits Will attend diet classes:: Yes Outcomes/Goals:: Consume diet rich in vegs,fruits,whole grain/high fiber,fish,lean meat, Limit sat/trans fats,cholesterol & added salts & sugars and Other additional outcome/goals: Intervention/Plan:: Assess current eating habits and Other Additional plan/interventions 30-day Reassessments:: Progressing Reassessment Notes & Comments:: P will attend nutrition class. Pt understands the benefits of a heart healthy low sodium diet. Education Gave educational materials for:: Signs & symptoms of hypoglycemia, Signs & symptoms of hyperglycemia, Relate diabetes to coronary artery disease and Healthy eating Nutrition - 60-Day Assessment Weight Mgt (Other Care) Height: 5 ft 4 in Weight:: 173 lb 8 oz BMI: 29.7 Core - 30-Day Assessment Visit Date of Eval: 05/28/24 Session #:: 12 Medication Compliance Preventative Medication(s):: Aspirin, Clopidogrel/P2Y12 inhibit and Statin/lipid H/O mental health issues: depression, anxiety, or addiction?: No Doesn?t believe in the benefits of treatment?: No Believes medications are unnecessary or harmful?: No Has a concern about medication side effects?: No Expresses concern over the cost of medications?: No Outcomes/Goals: Verbalizes medications,desired effect & common side effects @ DC, Pt self-reports following medication regimen, Keeps card in wallet w/medications listed by DC and Other additional outcome/goals: Interventions/plans: Instruct on medication effects & side effects, Review medication list w/patient every two weeks, Instruct importance of taking meds as ordered & assist problem solving and Other additional Tobacco Use Tobacco Use: Non-smoker Hypertension Resting Blood Pressure:: 140/70 [place] [employer] Hypertension Guidelines Peak Exercise Blood Pressure:: 128/80 Outcomes/Goals: Able to verbalize/achieve optimal blood pressure <130/80, Incorporates diet changes & exercise for blood pressure control by DC and Other additional outcomes/goals Interventions/plan: Instruct on optimal blood pressure, hypertension & medications, Instruct on effects of sodium, alcohol, stress, exercise &hypertension and Other additional plan/interventions 30 day Reassessments:: Progressing Reassessment Notes & Comments:: Pt's BP's have been slightly elevated on some days. Will continue to monitor and report to pt's physician if necessary Tobacco Cessation Referral Smoking Cessation Referral:: No Individual Education/Counseling:: No Education Schedule Given:: Yes Psychosocial - 30-Day Assess VIsit Date of Eval: 05/28/24 Session #:: 12 History of previous Mental disease:: No Target Goals Target Goals Psychosocial Test Tool Used:: [employer] QOL Cardiac and PHQ-9 Questionnaire phq-9 Severity See PHQ-9 Score: 2 Referral to Behavioral Health PS - Interventions: Yes: Attend Stress Management Classes Outcomes/Goals: See list Psychosocial Outcomes/Goals:: ID's personal stressors & 2 strategies to manage stress by discharge and Other Additional outcome/goals: Intervention/Plan: See List Interventions/Plan:: Assess stressors,coping strategies & signs of derpression on admission, Instruct/assist pt to develop coping & personal stress Mgt strategies, Refer to Behavioral Health if appropriate, Refer to Physician if appropriate, Instruct patient to recognize signs & symptoms of depression, Instruct patient to recog and Other additional plan/intervention 30-day Reassessments: 30 day Reassessments:: Met Reassessment Notes & Comments:: Pt denies any psychosocial issues at this time. Psychosocial - 60-Day Assess Target Goals Target Goals Referral to Behavioral Health PS - Interventions: Yes: Attend Stress Management Classes Outcomes/Goals: See list Psychosocial Outcomes/Goals:: ID's personal stressors & 2 strategies to manage stress by discharge and Other Additional outcome/goals: Psychosocial - 90-Day Assess Target Goals Target Goals Referral to Behavioral Health PS - Interventions: Yes: Attend Stress Management Classes Psychosocial - Final Assessmen Target Goals Target Goals Referral to Behavioral Health PS - Interventions: Yes: Attend Stress Management Classes Nutrition - 90-Day Assessment Weight Mgt (Other Care) Height: 5 ft 4 in Weight:: 173 lb 8 oz BMI: 29.7 Nutrition - Final Assessment Weight Mgt (Other Care) Height: 5 ft 4 in Weight:: 173 lb 8 oz BMI: 29.7
[2024-05-28 11:34] VITALS: BP 140/70; BMI 29.7
== END 2024-06-18 23:59 ==
LOC: CR 14:15
PROVIDERS: PCP Family Medicine; Referring Provider Internal Medicine Interventional Cardiology; Visit Provider Internal Medicine Interventional Cardiology
DX: Z95.5 Presence of coronary angioplasty implant and graft (principal)
CPT/HCPCS: 93798; 97802

== ENCOUNTER 2024-07-18 14:15 | Outpatient (RCR) | payer MEDICARE, OTHER, SELFPAY ==
[2024-05-28 11:34] VITALS: BMI 29.7
[2024-06-19 00:20] VITALS: BP 140/70
--- NOTE | 2024-06-25 08:26 | PCM.CR.ITP ---
Exercise - Initial Assessment Physician Prescribed Exercise Modalities: Treadmill, Schwinn Airdyne AD-7 and SciFit Stepper Nutrition - Initial Assessment Weight Mgt (Other Care) Height: 5 ft 4 in Weight:: 172 lb BMI: 29.5 Core - Initial Assessment Hypertension Resting Blood Pressure:: 108/64 [place] [employer] Hypertension Guidelines Psychosocial - Initial Assess Target Goals Target Goals Referral to Behavioral Health PS - Interventions: Yes: Attend Stress Management Classes Patient Health Questionnaire PHQ-9 Screening 60-Day Re-eval Assessment: 1. Little interest or pleasure in doing things: Not at all 2. Feeling down, depressed, or hopeless: Not at all 3. Trouble falling or staying asleep, or sleeping too much: Several days 4. Feeling tired or having little energy: Several days 5. Poor appetite or overeating: Not at all 6. Feeling bad about yourself -- or that you are a failure or have let yourself or your family down: Not at all 7. Trouble concentrating on things, such as reading the newspaper or watching television: Not at all 8. Moving or speaking so slowly that other people could have noticed. Or the opposite - being so fidgety or restless that you have been moving around a lot more than usual: Not at all 9. Thoughts that you would be better off , or of hurting yourself in some way: Not at all How difficult have these problems made it for you to do your work, take care of things at home, or get along with other people?: Not difficult at all Total Score: 2 Nutrition Survey Nutrition Survey Instructions Scoring Instructions Exercise - 30-day Assessment Physician Prescribed Exercise Modalities: Treadmill, Schwinn Airdyne AD-7 and SciFit Stepper Exercise - 60-day Assessment Visit Date of Eval: 06/25/24 Session #:: 24 Physician Prescribed Exercise Modalities: Treadmill, Schwinn Airdyne AD-7 and SciFit Stepper Frequency: 3x/week for 12 weeks [36 sessions] Intensity: 60-80% of age predicted maximum heart rate reserve Duration: 30 - 45 minutes Current METSs:: 6.1 Target Heart Rate:: 89-118 Current RPE:: 12.5-13.5 Maximum Excercise HR:: 128 Resting Blood Pressure: 116/66 Maximum Exercise Blood Pressure: 160/80 EKG Type: NSR to ST w/ rare PAC Outcomes & Goals Goals:: Verbalizes understanding of THR, RPE & goal METS by session 6, Documents in home exercise log/reports 30 min aerobic 5 day/wk by DC, Demonstrates accurate pulse taking by DC and Other additional outcome/goals: see below Intervention & Plan Exercise Program Goals: Instruct on personal THR & RPE, Instruct on MET level & personal MET goal, Show patient to take own pulse /validate performance until accurate, Instruct on home exercise and Other additional plan/int Physical Activity Home Exercise Physical Activity - Home Exercise: Safe Exercise, Warm-up, Self-monitoring, Cool-Down, Home Exercise > 30 min Daily and Sitting Time <3 hours/daily Outcomes & Goals Outcomes/Goals: Demonstrates correct Warm-up/exercise Cool-Down (S3) if = 2.5 METs, Verbalizes symptoms of exercise intolerance by Session 3 (S3), Demonstrate safe equipment use (S3) & follows exercise prescrition (6) and Other: See below Intervention & Plan Plan/Intervention: Instruct warm-up & cool-down if exercising at > 2 METs, Instruct on symptoms of exercise intolerance & actions to take, Instruct & monitor on saf, Assess intial functional capacity & safety risk and Other See below 30-day Reassessments 30 day Reassessments:: Progressing Reassessment Notes & Comments:: Proper warm up and cool down demonstrated and explained to pt. Pt is able to return demonstration. Exercise - 90-day Assessment Physician Prescribed Exercise Modalities: Treadmill, Schwinn Airdyne AD-7 and SciFit Stepper Exercise - Final/Discharge Physician Prescribed Exercise Modalities: Treadmill, Schwinn Airdyne AD-7 and SciFit Stepper Nutrition - 30-Day Assessment Weight Mgt (Other Care) Height: 5 ft 4 in Weight:: 172 lb BMI: 29.5 Nutrition - 60-Day Assessment Program Goals Nutrition Program Goals Patient has diagnosis of Hyperlipidemia (ICD E78)?: Yes Visit Date of Eval: 06/25/24 Session #:: 24 Cholesterol/Lipids (Other Core Measures) Determine presence & major risk factors that modify LDL goal: Hypertension or hypertensive medication, Low HDL cholesterol <40 mg/dL*, Family history of premature CHD in Male < 55 years: female <65 yearsFa and Age men > 45 years; women >/= 55 years Outcomes/Goals: Pt IDs own risk factors & lifestyle modifications by Session 10, Verbalizes symptoms of angina & response by session 3., Pt independently manages and Other Additional Outcomes/Goals: Intervention/Plan: Advocate for lipid panel cholesterol medication if applicable, Instruct on personal lipid levels & lipid goals/NCEP guidelines, Instruct on cholesterol and Other additional plan/int Referral to dietitian:: Yes (pt has met with our network support analyst.) 30-day Reassessments:: Met Reassessment Notes & Comments:: pt has met with our network support analyst. Diabetes (Other Core Measures) Diabetes Type: Not Applicable Weight Mgt (Other Care) Height: 5 ft 4 in Weight:: 172 lb BMI: 29.5 Diagnosis Overweight/Obesity BMI> 30% ICD-10 E66: No Diagnosis High BMI/Morbid Obesity BMI> 35% ICD-10 Z68: No Outcomes/Goals: Pt sets, maintains & shows weight loss goal & trend during rehab and Other additional outcomes/goals Intervention/Plan: Instruct on ideal BMI & set weight loss goal w/patient, Assist pt to ID & incorporate diet changes for weight loss by S9, Refer to Structured Weight Loss program as appropriate, Encourage goal of using 250-300dcal per session for weight loss and Other additional plan/interventions 30 day Reassessments:: Progressing Reassessment Notes & Comments:: Pt has lost 2 lbs. Pt has met with our network support analyst. Will continue to monitor. Healthy Eating Habits Will attend diet classes:: Yes Outcomes/Goals:: Consume diet rich in vegs,fruits,whole grain/high fiber,fish,lean meat, Limit sat/trans fats,cholesterol & added salts & sugars and Other additional outcome/goals: Intervention/Plan:: Assess current eating habits and Other Additional plan/interventions 30-day Reassessments:: Progressing Reassessment Notes & Comments:: Pt has lost 2 lbs. Pt has met with our network support analyst. Will continue to monitor. Education Gave educational materials for:: Signs & symptoms of hypoglycemia, Signs & symptoms of hyperglycemia, Relate diabetes to coronary artery disease and Healthy eating Core - Final Assessment Hypertension Resting Blood Pressure:: 108/64 [place] [employer] Hypertension Guidelines Core - 60-Day Assessment Visit Date of Eval: 06/25/24 Session #:: 24 Medication Compliance Preventative Medication(s):: Aspirin, Clopidogrel/P2Y12 inhibit and Statin/lipid H/O mental health issues: depression, anxiety, or addiction?: No Doesn?t believe in the benefits of treatment?: No Believes medications are unnecessary or harmful?: No Has a concern about medication side effects?: No Expresses concern over the cost of medications?: No Outcomes/Goals: Verbalizes medications,desired effect & common side effects @ DC, Pt self-reports following medication regimen, Keeps card in wallet w/medications listed by DC and Other additional outcome/goals: Interventions/plans: Instruct on medication effects & side effects, Review medication list w/patient every two weeks, Instruct importance of taking meds as ordered & assist problem solving and Other additional Tobacco Use Tobacco Use: Non-smoker Hypertension Hypertension Diagnosis:: Hypertension ICD-10 I10 Resting Blood Pressure:: 116/66 Resting Blood Pressure:: 108/64 [place] [employer] Hypertension Guidelines Peak Exercise Blood Pressure:: 160/80 Outcomes/Goals: Able to verbalize/achieve optimal blood pressure <130/80, Incorporates diet changes & exercise for blood pressure control by DC and Other additional outcomes/goals Interventions/plan: Instruct on optimal blood pressure, hypertension & medications, Instruct on effects of sodium, alcohol, stress, exercise &hypertension and Other additional plan/interventions 30 day Reassessments:: Met Reassessment Notes & Comments:: Pt's BP's are within AHA normal limits. Tobacco Cessation Referral Smoking Cessation Referral:: No Individual Education/Counseling:: No Education Schedule Given:: Yes Psychosocial - 30-Day Assess Target Goals Target Goals Referral to Behavioral Health PS - Interventions: Yes: Attend Stress Management Classes Outcomes/Goals: See list Psychosocial Outcomes/Goals:: ID's personal stressors & 2 strategies to manage stress by discharge and Other Additional outcome/goals: Psychosocial - 60-Day Assess VIsit Date of Eval: 06/25/24 Session #:: 24 History of previous Mental disease:: No Target Goals Target Goals Psychosocial Test Tool Used:: [place] QOL Cardiac and PHQ-9 Questionnaire phq-9 Severity See PHQ-9 Score: 2 Referral to Behavioral Health PS - Interventions: Yes: Attend Stress Management Classes Outcomes/Goals: See list Psychosocial Outcomes/Goals:: ID's personal stressors & 2 strategies to manage stress by discharge and Other Additional outcome/goals: Intervention/Plan: See List Interventions/Plan:: Assess stressors,coping strategies & signs of derpression on admission, Instruct/assist pt to develop coping & personal stress Mgt strategies, Refer to Behavioral Health if appropriate, Refer to Physician if appropriate, Instruct patient to recognize signs & symptoms of depression, Instruct patient to recog and Other additional plan/intervention 30-day Reassessments: 30 day Reassessments:: Met Reassessment Notes & Comments:: Pt denies any psychosocial issues at this time Psychosocial - 90-Day Assess Target Goals Target Goals Referral to Behavioral Health PS - Interventions: Yes: Attend Stress Management Classes Psychosocial - Final Assessmen Target Goals Target Goals Referral to Behavioral Health PS - Interventions: Yes: Attend Stress Management Classes Nutrition - 90-Day Assessment Weight Mgt (Other Care) Height: 5 ft 4 in Weight:: 172 lb BMI: 29.5 Nutrition - Final Assessment Weight Mgt (Other Care) Height: 5 ft 4 in Weight:: 172 lb BMI: 29.5
[2024-06-25 08:38] VITALS: BP 108/64; BP 116/66; BMI 29.5
== END 2024-07-19 23:59 ==
LOC: CR 14:15
PROVIDERS: PCP Family Medicine; Referring Provider Internal Medicine Interventional Cardiology; Visit Provider Internal Medicine Interventional Cardiology
DX: Z95.5 Presence of coronary angioplasty implant and graft (principal)
CPT/HCPCS: 93798

== ENCOUNTER 2024-07-25 14:30 | Outpatient (RCR) | payer MEDICARE, OTHER, SELFPAY ==
[2024-06-25 08:38] VITALS: BMI 29.5
[2024-07-20 00:32] VITALS: BP 108/64; BP 116/66; BP 140/70
== END 2024-08-18 23:59 ==
LOC: CR 14:30
PROVIDERS: PCP Family Medicine; Referring Provider Internal Medicine Interventional Cardiology; Visit Provider Internal Medicine Interventional Cardiology
DX: Z95.5 Presence of coronary angioplasty implant and graft (principal)
CPT/HCPCS: 93798

== ENCOUNTER → 2024-08-14 | Outpatient (CLI) | payer MEDICARE, OTHER, SELFPAY ==
[2024-06-25 08:38] VITALS: BMI 29.5
--- NOTE | 2024-08-14 10:54 | US_ITS ---
PROCEDURE: ABDOMEN LIMITED 08/14/2024 REASON FOR EXAM: ABDOMINAL LUMP Palpable lump in the left midabdomen. Recent injury. Patient is on anticoagulants. TECHNIQUE: ABDOMEN LIMITED COMPARISON: None FINDINGS: The palpable lump in the left mid abdomen was examined with ultrasound. The lump corresponds to a 4.6 cm 4.9 cm 2.2 cm echogenic soft tissue density. With the patient's history of trauma. This may represent a possible hematoma. Follow-up sonogram recommended. US/Abdomen Limited IMPRESSION: The palpable lump most likely corresponds to a hematoma when the history is lola en into consideration. Follow-up recommended. Reading Location: [place]
--- OUTSIDE RECORDS SUMMARY | 2024-08-14 21:11 | XMS RPT_ITS | CCD ---
Author Organization [facility] Care Team Providers Care Senior Merchandiser Name Role Phone Pura Saavedra RN Unavailable Unavailable Apryl Clifford Unavailable Apryl Clifford Unavailable Pura Saavedra RN Unavailable Unavailable [facility] Nurse Unavailable Unavailable Ronnie Mosquera Unavailable Unavailable MD Thomas, Sameer S Unavailable Ronnie Mosquera Unavailable Unavailable Thomas, [place] S Unavailable Kurtis Hastings MD Unavailable Kelin Hsu Primary Care Provider [phone] Thomas, [place] S Unavailable Kurtis Hastings MD Unavailable Kelin Hsu Primary Care Provider Thomas, [place] S Unavailable Kurtis Hastings MD Unavailable Kelin Hsu Primary Care Provider Thomas FREEMAN, [place] S Unavailable Dr. Gianni Vargas Primary Care Provider [phone] Dr. Gianni Vargas Referring Provider Roof TICKET SCHEDULER, TICKET SCHEDULER-C Gianni Siddiqui Attending Provider Dr. Ge Ag Attending Provider Dr. Ge Ag Referring Provider Dr. Ge Ag Other Provider DO Rae Kate Primary Care Provider [phone] Shadi, Kelin Hedii Primary Care Provider [phone] Edward FREEMAN, Gatito Primary Care Provider EDWARD, CHALON Primary Care Unavailable MARET, YOAN Referring Unavailable Edward FREEMAN, Gatito Primary Care Provider Edward FREEMAN, Gatito Attending Provider Edward FREEMAN, Gatito Referring Provider KURTIS FREEMAN, DARLING Attending Provider KURTIS FREEMAN, DARLING Referring Provider Osorio FREEMAN, Dr. Jiménez Attending Provider [phone] Osorio FREEMAN, Dr. Jiménez Referring Provider Osorio FREEMAN, Dr. Jiménez Attending Provider Osorio FREEMAN, Dr. Jiménez Referring Provider [phone] Osorio FREEMAN, Dr. Jiménez Attending Provider Osorio FREEMAN, Dr. Jiménez Referring Provider RON PENNINGTON Attending Unavailable DARLING, KURTIS Referring Unavailable EDWARD, CHALON Primary Care Unavailable EDWARD, CHALON Primary Care Unavailable GUADALUPE LEACH Attending Unavailable ZACHERY, KAVITHA Referring Unavailable EDWARD, CHALON Primary Care Unavailable EDWARD, CHALON Primary Care Unavailable EDWARD, CHALON Primary Care Unavailable DARLING, KURTIS Attending Unavailable EDWARD, CHALON Primary Care Unavailable DARLING, KURTIS Referring Unavailable JOLLIFF, KELIN HEIDI Primary Care Unavailable DARLING, KURTIS Attending Unavailable DARLING, KURTIS Referring Unavailable JOLLIFF, KELIN HEIDI Primary Care Unavailable DARLING, KURTIS Referring Unavailable JOLLIFF, KELIN HEIDI Primary Care Unavailable MARET, YOAN Attending Unavailable MARET, YOAN Referring Unavailable JOLLIFF, KELIN HEIDI Primary Care Unavailable MARET, YOAN Referring Unavailable EDWARD, CHALON Primary Care Unavailable DARLING, KURTIS Attending Unavailable DARLING, KURTIS Referring Unavailable EDWARD, CHALON Primary Care Unavailable DARLING, KURTIS Admitting Unavailable DARLING, KURTIS Attending Unavailable JOLLIFF, KELIN HIEDI Primary Care Unavailable Edward FREEMAN, [facility] Primary Care Provider KURTIS, DARLING Referring Unavailable KURTIS, DARLING Attending Unavailable Edward, Chalon Primary Care Unavailable Edward, Chalon Primary Care Unavailable Reena PA, Tea Attending Unavailable Reena PA, Tea Referring Unavailable KURTIS, DARLING Attending Unavailable KURTIS, DARLING Referring Unavailable Edward, Chalon Primary Care Unavailable KURTIS, DARLING Attending Unavailable KURTIS, DARLING Referring Unavailable Edward, Chalon Primary Care Unavailable KURTIS, DARLING Attending Unavailable KURTIS, DARLING Referring Unavailable Edward, Chalon Primary Care Unavailable KURTIS, DARLING Referring Unavailable KURTIS, DARLING Attending Unavailable Edward, Chalon Primary Care Unavailable Ac, Tino Attending Unavailable Ac, Tino Referring Unavailable Edward, Chalon Primary Care Unavailable Edward, Chalon Attending Unavailable Edward, Chalon Referring Unavailable Edward, Chalon Primary Care Unavailable Edward, Chalon Attending Unavailable Edward, Chalon Referring Unavailable Edward, Chalon Primary Care Unavailable Edward, Chalon Primary Care Unavailable Edward, Chalon Attending Unavailable Edward, Chalon Referring Unavailable Edward, Chalon Primary Care Unavailable Edward, Chalon Attending Unavailable Edward, Chalon Referring Unavailable Edward, Chalon Primary Care Unavailable Edward, Chalon Attending Unavailable Edward, Chalon Referring Unavailable Allergies Allergy Classification Reported Allergen(s) Allergy Type Date of Onset Reaction(s) Facility Pollen (1 source) Ragweed pollen Substance Allergy 5 Itching, Other: See Comments [facility] (8 sources) CARROTS; Translations: [CARROTS] food allergy 4 unknown [facility] Work Phone: (6 sources) carrot allergenic extract Drug Allergy 1 Itching [facility] (20 sources) Ragweed pollen; Translations: [RAGWEED POLLEN] Allergy to substance 5 Itching, Other: See Comments [facility] Comment on above: itching (6 sources) KOREAN FOODS Propensity to adverse reactions 1 [facility] (6 sources) Food Allergies: Uncoded; Translations: [Food Allergies: Uncoded] Allergy to substance 3 [facility] Comment on above: swedish food Medications Current Medications Medication Drug Class(es) Dates Sig (Normalized) Sig (Original) acetaminophen 325 mg oral tablet (20 sources) Start: 04-15-2024 take 2 tablets by mouth every four hours as needed acetaminophen (TYLENOL) 325 mg tablet Take 2 tablets by mouth every 4 hours as needed for pain. 50 tablet 04/15/2024 Active Start: 02-02-2021 take 2 tablets enter al route every four hours as needed acetaminophen (TYLENOL) 325 mg tablet 2 tablets by ORAL/FEEDING TUBE route every 4 hours as needed for pain. 50 tablet 02/02/2021 Suspended Start: 02-02-2021 take 2 tablets by mo uth every four hours as needed acetaminophen (TYLENOL) 325 mg tablet 2 tablets by ORAL/FEEDING TUBE route every 4 hours as needed for pain. 50 tablet 0 02/02/2021 Active Comment on above: 2 tablets by ORAL/FE EDING TUBE route every 4 hours as needed for pain. [id number] 200 actuat albuterol 0.09 mg/actuat metered dose inhaler (20 sources) beta2-Adrenergic Agonist Start: 11-13-2019 Albuterol Sulfate 90 mcg/actuation HFA aerosol inhaler Active 1 NMA INHALATION DAILY as needed for shortness of breath or wheezing November 13, 2019 12:00am Start: 11-13-2019 take 1 dose by inhal ation once daily Albuterol Sulfate Active 1 DOSE INHALATION DAILY November 12, 2019 11:00pm Start: 11-21-2015 take 2 puff(s) by in halation every four hours as needed for wheezing albuterol HFA (VENTOLIN HFA) 90 mcg/actuation inhaler Inhale 2 Puffs as instructed every 4 hours as needed for Wheezing/Shortness of Breath. 1 Inhaler 0 11/21/2015 Active Start: 09-24-2013 End: 01-07-2019 take 1 puff(s) by inhalation every four hours as needed Albuterol Sulfate Discontinued 2 PUFF INHALATION EVERY 4 HOURS NEEDED September 24, 2013 10:13pm January 07, 2019 3:52pm Start: 09-24-2013 End: 01-07-2019 Albuterol Sulfate 1 INHALER inhaler Discontinued 2 NMA INHALATION EVERY 4 HOURS NEEDED as needed for Shortness Of Breath September 24, 2013 12:00am January 07, 2019 3:52pm Start: 09-24-2013 End: 01-07-2019 take 1 puff(s) by inhalation every four hours as needed Albuterol Sulfate Discontinued 2 PUFF INHALATION EVERY 4 HOURS NEEDED September 23, 2013 11:00pm January 07, 2019 2:52pm Start: 08-02-2010 ALBUTEROL SULF ATE NEBU 0.042%, As needed ALBUTEROL SULFATE NEBU [id number] Aye Augustin Comment on above: Inhale 2 Puffs as in structed every 4 hours as needed for Wheezing/Shortness of Breath. amoxicillin 500 mg oral tablet (20 sources) Penicillin-class Antibacterial Start: 05-28-2020 Amoxicillin 500 mg tablet Take 4 tablets by mouth as needed. Prior to dental procedures 05/28/2020 Active Start: 05-28-2020 Amoxicillin Ac tive 2000 MG PO ONCE May 28, 2020 12:00am Take for tablets by mouth 30-60 minutes prior to dental procedure Comment on above: Take 4 tablets by mo [facility] as needed. Prior to dental procedures aspirin 81 mg chewable tablet (20 sources) Nonsteroidal Anti-inflammatory Drug Start: 04-16-2024 End: 04-16-2025 take 1 tablet by mouth once daily aspirin 81 mg chewable tablet Take 1 tablet by mouth once daily. 30 tablet 11 04/16/2024 04/16/2025 Active Start: 12-04-2017 End: 12-04-2022 take 1 tablet by mouth once daily Aspirin 81 mg tablet,delayed release (DR/EC) Discontinued 81 mg PO DAILY@0800 90 December 04, 2017 8:40am December 04, 2022 8:07am Start: 02-07-2017 End: 12-04-2017 take 1 tablet by mouth once daily Aspirin 325 mg tablet Discontinued 325 mg PO daily February 07, 2017 1:00am December 04, 2017 8:33am Start: 09-24-2013 End: 02-07-2017 take 1 tablet by mouth once daily Aspirin 325 MG tablet Discontinued 325 mg PO DAILY@0800 September 24, 2013 12:00am February 07, 2017 11:41am Start: 08-02-2010 take 1 tablet by antony once daily ASPIRIN 325 MG TABS One tablet by mouth daily ASPIRIN [id number] Aye Augustin Comment on above: Take 81 mg by mouth once daily. atorvastatin 80 mg oral tablet (20 sources) HMG-CoA Reductase Inhibitor Start: 2 End: take 1 tablet by mouth once daily at bedtime atorvastatin (LIPITOR) 80 mg tablet Take 1 tablet by mouth daily at bedtime. 90 tablet 3 08/10/2023 08/09/2024 Active Start: 04-06-2021 take 2 tablets by mo uth at bedtime Atorvastatin 40 mg tablet Active 80 mg PO AT BEDTIME April 06, 2021 1:00am Start: 04-06-2021 take 80 mg by mouth at bedtime Atorvastatin Active 80 MG PO AT BEDTIME April 06, 2021 12:00am Start: 04-06-2021 take 40 mg by mouth at bedtime Atorvastatin Active 40 MG PO AT BEDTIME April 06, 2021 1:00am Start: 06-24-2018 End: 04-06-2021 take 1 tablet by mouth at bedtime Atorvastatin 80 mg tablet Discontinued 80 mg PO AT BEDTIME February 02, 2020 1:48pm February 25, 2020 2:09pm Start: 11-09-2017 End: 06-24-2018 take 1 tablet by mouth once daily Atorvastatin 40 mg tablet Discontinued 40 mg PO DAILY January 01, 2018 11:26am June 24, 2018 7:50am Start: 02-07-2017 End: 11-09-2017 Atorvastatin 80 mg tablet Discontinued 40 mg PO AT BEDTIME October 15, 2017 5:02pm November 09, 2017 12:46pm Start: 02-07-2017 End: 11-09-2017 take 40 mg by mouth at bedtime Atorvastatin Discontinu ed 40 MG PO AT BEDTIME October 15, 2017 4:02pm November 09, 2017 11:46am Start: 09-24-2013 End: 02-07-2017 take 1 tablet by mouth at bedtime Atorvastatin 80 MG tablet Discontinued 80 mg PO AT BEDTIME September 24, 2013 12:00am February 07, 2017 11:44am Start: 07-09-2013 take 1 tablet by antony th once daily ATORVASTATIN CALCIUM 40 MG TABS One tablet by mouth daily ATORVASTATIN CALCIUM [id number] Sameer Guzman MD Start: 08-02-2010 End: 01-09-2011 take 1 tablet by mouth once daily at bedtime ATORVASTATIN CALCIUM 80 MG TABS One half (1/2) tablet by mouth daily at bedtime ATORVASTATIN CALCIUM [id number] Courtney Carter PA-C Comment on above: Take 1 tablet by antony th daily at bedtime. cetirizine hydrochloride 10 mg oral tablet (20 sources) Histamine-1 Receptor Antagonist Start: take 5 mg by mouth once daily as needed Cetirizine (Zyrtec) 10 mg tablet Active 5 mg PO daily as needed for Allergies February 07, 2017 1:00am Start: 08-02-2010 End: 02-07-2017 cetirizine (ZYRTEC) 10 mg ta blet Take 10 mg by mouth as needed. 02/07/2017 Active Comment on above: Take 10 mg by mouth as needed. clopidogrel 75 mg oral tablet (20 sources) P2Y12 Platelet Inhibitor Start: 05-05-2022 End: 08-04-2024 take 1 tablet by mouth once daily clopidogrel (PLAVIX) 75 mg tablet Take 1 tablet by mouth once daily. 90 tablet 3 08/10/2023 Active Start: 12-02-2018 End: 01-31-2019 take 1 tablet by mouth once daily Clopidogrel 75 mg tablet Discontinued 75 mg PO DAILY December 02, 2018 11:22am January 31, 2019 11:25am Start: 01-01-2018 End: 12-02-2018 take 4 tablets by mouth once daily, then take 1 tablet by mouth once daily Clopidogrel 75 mg tablet Discontinued 75 mg PO DAILY January 01, 2018 1:00am December 02, 2018 11:23am Take four tablets (300mg) 12 hours after the last dose of ticagrelor and then one tablet daily Comment on above: Take 1 tablet by antony th once daily. 1 ml evolocumab 140 mg/ml auto-injector (20 sources) PCSK9 Inhibitor Start: 08-31-19 End: 04-24-19 inject 140 mg by subcutaneous injection every other week evolocumab 140 mg/mL subcutaneous pen injector (REPATHA SURECLICK) Inject 140 mg subcutaneously every 2 weeks. 2 mL 3 04/23/2024 Active Start: 10-10-2022 End: 08-31-2023 evolocumab (REPATHA PUSHTRON EX) 420 mg/3.5 mL wearable injector Inject 3.5 mL subcutaneously once every month. 3 Each 3 08/10/2023 08/31/2023 Discontinued (Cost of medication) Start: 08-29-2021 evolocumab (RE PATHA PUSHTRONEX) 420 mg/3.5 mL Inject 3.5 mL subcutaneously once every month. 3 Each 3 08/29/2021 Active Start: 04-06-2021 Evolocumab (Re patha Pushtronex) 420 mg/3.5 mL wearable injector Active 420 mg SC .montly April 06, 2021 1:00am Start: 07-23-2020 evolocumab (RE PATHA PUSHTRONEX) 420 mg/3.5 mL Inject 3.5 mL subcutaneously once every month. 3 Cartridge 3 07/23/2020 Active Comment on above: Inject 3.5 mL subcut aneously once every month. ipratropium bromide 0.021 mg/actuat metered dose nasal spray (20 sources) Anticholinergic Start: 03-27-19 Ipratropium [place] (ATROVENT) 21 mcg (0.03 %) nasal spray 03/27/2022 Active 24 hr isosorbide mononitrate 60 mg extended release oral tablet (20 sources) Nitrate Vasodilator Start: 04-16-19 End: 04-16-19 take 1 tablet by mouth once daily isosorbide mononitrate ER (IMDUR) 60 mg 24 hr tablet Take 1 tablet by mouth once daily. Patient should start on April 16, 2024. 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 30 tablet 04/01/2024 05/01/2024 Suspended Start: 05-28-2020 End: 04-06-2021 take 1 tablet by mouth twice daily, then take 1 tablet by mouth every twenty-four hours Isosorbide Mononitrate 30 mg tablet extended release 24 hr Discontinued 30 mg PO TWICE A DAY 120 May 28, 2020 9:29am April 06, 2021 11:53am Start: 02-25-2020 End: 05-28-2020 take 1 tablet by mouth once daily, then take 1 tablet by mouth every twenty-four hours Isosorbide Mononitrate 30 mg tablet extended release 24 hr Discontinued 30 mg PO DAILY 60 February 25, 2020 1:00am May 28, 2020 9:30am Multivitamin capsule (20 sources) take 1 capsule by mo [facility] once daily Multivitamin capsule Take 1 capsule by mouth once daily. Suspended take 1 capsule by mouth once aarti ly Multivitamin capsule Take 1 capsule by mouth once daily. Active take 1 capsule by mouth once aarti ly Multivitamin capsule Take 1 capsule by mouth once daily. 0 Active Comment on above: Take 1 capsule by [facility] once daily. Multivitamin With Folic Acid (14 sources) Start: 01-07-2019 take 1 tablet by mouth once daily Multivitamin With Folic Acid Active 1 TABLET PO DAILY January 07, 2019 2:52pm Start: 01-07-2019 take 1 tablet by [facility] once daily Multivitamin With Folic Acid Active 1 TABLET PO DAILY January 07, 2019 3:52pm Start: 09-24-2013 End: 01-07-2019 take 1 tablet by mouth once daily Multivitamin With Folic Acid Discontinued 1 TABLET PO DAILY September 24, 2013 10:13pm January 07, 2019 3:52pm Start: 09-24-2013 End: 01-07-2019 take 1 tablet by mouth once daily Multivitamin With Folic Acid Discontinued 1 TABLET PO DAILY September 23, 2013 11:00pm January 07, 2019 2:52pm Start: 09-24-2013 End: 01-07-2019 take 1 tablet by mouth once daily Multivitamin With Folic Acid Discontinued 1 TABLET PO DAILY September 24, 2013 12:00am January 07, 2019 3:52pm Multivitamin With Folic Acid 400 mcg tablet (4 sources) Start: 01-07-2019 Multivitamin W ith Folic Acid 400 mcg tablet Active 1 {tbl} PO DAILY January 07, 2019 3:52pm nitroglycerin 0.4 mg sublingual tablet (20 sources) Nitrate Vasodilator Start: 04-01-2024 nitroglyce rin sublingual (NITROQUICK) 0.4 mg SL tablet Indications: 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 25 tablet 1 04/01/2024 Active Start: 09-24-2017 End: 02-25-2020 Nitroglycerin 0.4 mg tablet, sublingual Discontinued 0.4 mg SL every 5 to 15 minutes as needed for chest pain September 24, 2017 11:47am February 25, 2020 2:19pm Start: 08-02-2010 NITROSTAT 0.4 MG SUBL 1 tablet under tongue every 5 min up to 3 X NITROGLYCERIN [id number] Sameer Guzman MD Completed/Discontinued Medications Medication Drug Class(es) Dates Sig (Normalized) Sig (Original) amiodarone hydrochloride 200 mg oral tablet (16 sources) Antiarrhythmic Start: 08-02-2010 End: 01-16-2011 take 1 tablet by mouth once daily AMIODARONE HCL 200 MG TABS One tablet by mouth daily AMIODARONE HCL [id number] Aye Augustin amLODIPine 2.5 mg oral tablet (20 sources) Dihydropyridine Calcium Channel Jana Start: 04-06-2021 End: 08-08-2025 take 1 tablet by mouth once daily amLODIPine (NORVASC) 2.5 mg tablet Take 1 tablet by mouth once daily. 90 tablet 3 08/10/2023 08/08/2024 Discontinued Comment on above: Take 1 tablet by antony once daily. azithromycin 250 mg oral tablet (5 sources) Macrolide Antimicrobial Start: 11-12-2022 End: 12-04-2022 Azithromycin (Zithromax Z-Dein) 250 mg tablet Discontinued 0 PO .COMPLEX November 12, 2022 12:00am December 04, 2022 8:04am For 250 mg dose pack: take 500 mg today (day 1), then 250 mg for 4 days (days 2-5) PO famotidine 20 mg oral tablet (16 sources) Histamine-2 Receptor Antagonist Start: 08-02-2010 End: 01-16-2011 take 1 tablet by mouth once daily FAMOTIDINE 20 MG TABS One tablet by mouth daily FAMOTIDINE [id number] Aye Augustin 120 actuat fluticasone propionate 0.22 mg/actuat metered dose inhaler (16 sources) Corticosteroid Start: 07-20-2011 End: 12-09-2014 FLOVENT HFA 220 MCG/ACT AERO as needed FLUTICASONE PROPIONATE HFA [id number] Adebayo Hirsch MD Start: 07-20-2011 FLOVENT HFA 22 0 MCG/ACT AERO as needed FLUTICASONE PROPIONATE HFA [id number] Adebayo Hirsch MD Start: 07-20-2011 End: 12-09-2014 FLOVENT HFA 220 MCG/ACT AERO as needed FLUTICASONE PROPIONATE HFA [id number] Courtney Carter PA-C 14 actuat fluticasone propionate 0.1 mg/actuat / salmeterol 0.05 mg/actuat dry powder inhaler (16 sources) Corticosteroid, beta2-Adrenergic Agonist Start: 08-02-2010 End: 07-20-2011 ADVAIR DISKUS 100-50 MCG/DOSE AEPB As needed FLUTICASONE-SALMETEROL [id number] Aye Augustin Start: 08-02-2010 End: 07-20-2011 ADVAIR DISKUS 100-50 MCG/DOS E AEPB As needed FLUTICASONE-SALMETEROL [id number] Adebayo Hirsch MD Start: 08-02-2010 ADVAIR DISKUS 100-50 MCG/DOSE AEPB As needed FLUTICASONE-SALMETEROL [id number] Aye Augustin furosemide 20 mg oral tablet (11 sources) Loop Diuretic Start: 04-06-2021 End: 04-12-2021 take 1 tablet by mouth twice daily Furosemide 20 mg tablet Discontinued 20 mg PO TWICE A DAY April 06, 2021 1:00am April 12, 2021 9:10am lisinopril 5 mg oral tablet (16 sources) Angiotensin Converting Enzyme Inhibitor Start: 08-02-2010 End: 01-16-2011 take 1 tablet by mouth once daily LISINOPRIL 5 MG TABS One tablet by mouth daily LISINOPRIL [id number] Adebayo Hirsch MD 24 hr metoprolol succinate 25 mg extended release oral tablet (20 sources) beta-Adrenergic Jana Start: 05-03-2021 End: 07-27-2022 take 1 tablet by mouth once daily metoprolol succinate ER (TOPROL XL) 25 mg 24 hr tablet Take 1 tablet by mouth once daily. 90 tablet 3 07/27/2021 05/05/2022 Discontinued (Clinical Decision) Start: 04-06-2021 End: 12-04-2022 take 1 tablet by mouth twice daily Metoprolol Tartrate 25 mg tablet Discontinued 25 mg PO TWICE A DAY April 06, 2021 1:00am December 04, 2022 8:06am Start: 03-29-2020 End: 04-06-2021 take 1 tablet by mouth once daily Metoprolol Succinate (Toprol Xl) 25 mg tablet extended release 24 hr Discontinued 25 mg PO DAILY December 06, 2020 10:26am April 06, 2021 11:52am Start: 02-17-2019 End: 03-29-2020 take 2 tablets by mouth once daily Metoprolol Succinate 25 MG tablet extended release 24 hr Discontinued 12.5 mg PO DAILY January 09, 2020 9:59am March 29, 2020 9:54am Start: 01-31-2019 End: 02-17-2019 Metoprolol Succinate 25 MG t ablet Discontinued 12.5 mg PO DAILY January 31, 2019 1:00am February 17, 2019 10:55am Start: 01-31-2019 End: 03-29-2020 take 12.5 mg by mouth once daily Metoprolol Succinate Discontinued 12.5 MG PO DAILY January 09, 2020 8:59am March 29, 2020 8:54am Start: 09-24-2013 End: 02-07-2017 take 1 tablet by mouth once daily Metoprolol Tartrate 25 MG tablet Discontinued 25 mg PO DAILY September 24, 2013 12:00am February 07, 2017 11:43am Start: 11-19-2012 take 1 tablet by antony th once daily TOPROL XL 25 MG [id number] One tablet by mouth daily METOPROLOL SUCCINATE [id number] Sameer Guzman MD Start: 11-19-2012 End: 06-02-2014 take 1 tablet by mouth once daily TOPROL XL 25 MG [id number] One tablet by mouth daily METOPROLOL SUCCINATE [id number] Sameer Guzman MD Start: 01-16-2011 take 1 tablet by antony th twice daily TOPROL XL 25 MG [id number] One half tablet by mouth twice a day METOPROLOL SUCCINATE [id number] Adebayo Hirsch MD Start: 01-16-2011 take 1 tablet by antony th twice daily TOPROL XL 25 MG [id number] One half tablet by mouth twice a day METOPROLOL SUCCINATE [id number] Adebayo Hirsch MD Start: 08-02-2010 End: 06-02-2014 take 1 tablet by mouth once daily TOPROL XL 25 MG [id number] One tablet by mouth daily METOPROLOL SUCCINATE [id number] Sameer Guzman MD Start: 08-02-2010 take 1 tablet by antony th once daily TOPROL XL 25 MG [id number] One tablet by mouth daily METOPROLOL SUCCINATE [id number] Aye Augustin Comment on above: Take 1 tablet by antony th once daily. MULTIPLE VITAMIN (3 sources) Start: 08-03-19 11 take 1 tablet by mouth once daily MULTIVITAMINS TABS One tablet by mouth daily MULTIPLE VITAMIN [id number] Aye Augustin MULTIPLE VITAMIN (5 sources) Start: 08-03-19 11 take 1 tablet by mouth once daily MULTIVITAMINS TABS One tablet by mouth daily MULTIPLE VITAMIN [id number] Aye Augustin Multivitamin With Folic Acid 1 TABLET tablet (4 sources) Start: 09-25-19 14 End: 01-08-20 19 take 1 tablet by mouth once daily Multivitamin With Folic Acid 1 TABLET tablet Discontinued 1 {tbl} PO DAILY September 24, 2013 12:00am January 07, 2019 3:52pm naproxen 500 mg delayed release oral tablet (16 sources) Nonsteroidal Anti-inflammatory Drug Start: 05-07-19 13 End: 11-20-19 13 take 1 tablet by mouth twice daily EC-NAPROSYN 500 MG TBEC One tablet by mouth twice daily NAPROXEN [id number] Sameer Guzman MD Start: 05-06-2012 End: 11-19-2012 take 1 tablet by mouth twice daily EC-NAPROSYN 500 MG TBEC One tablet by mouth twice daily NAPROXEN [id number] Sameer Guzman MD pantoprazole 20 mg delayed release oral tablet (11 sources) Proton Pump Inhibitor Start: 04-06-2021 End: 04-12-2021 take 1 tablet by mouth once daily Pantoprazole 20 mg tablet,delayed release (DR/EC) Discontinued 20 mg PO DAILY April 06, 2021 1:00am April 12, 2021 9:11am perflutren lipid microspheres 1.3 mL in NaCl (PF) 0.9% 10 mL injection (DEFINITY) (20 sources) Start: 07-11-2023 End: 04-01-2024 perflutren lipid microspheres 1.3 mL in NaCl (PF) 0.9% 10 mL injection (DEFINITY) Start: 07-11-2023 End: 10-09-2024 perflutren lipid microsphere s 1.3 mL in NaCl (PF) 0.9% 10 mL injection (DEFINITY) Start: 05-03-2021 End: 08-02-2022 perflutren lipid microsphere s 1.3 mL in NaCl (PF) 0.9% 10 mL injection (DEFINITY) Start: 02-01-2021 End: 05-03-2022 perflutren lipid microsphere s 1.3 mL in NaCl (PF) 0.9% 10 mL injection (DEFINITY) Start: 07-16-2020 End: 10-15-2021 perflutren lipid microsphere s 1.3 mL in NaCl (PF) 0.9% 10 mL injection (DEFINITY) microencapsulated potassium chloride 20 meq extended release oral tablet (11 sources) Start: 04-06-2021 End: 04-12-2021 take 1 tablet by mouth once daily Potassium Chloride 20 mEq tablet,ER particles/crystals Discontinued 20 meq PO DAILY April 06, 2021 1:00am April 12, 2021 9:10am rosuvastatin calcium 20 mg oral tablet (20 sources) HMG-CoA Reductase Inhibitor Start: 12-04-2012 End: 07-09-2013 take 1 tablet by mouth once daily CRESTOR 20 MG TABS One tablet by mouth daily ROSUVASTATIN CALCIUM [id number] Anders Horne MD Start: 01-09-2011 take 1 tablet by antony th at bedtime CRESTOR 40 MG TABS One tablet by mouth at bedtime. ROSUVASTATIN CALCIUM [id number] Adebayo Hirsch MD 125 ml sodium chloride 9 mg/ ml prefilled syringe (20 sources) Start: 07-11-2023 End: 10-09-2024 sodium chloride 0.9 % (flush ) 10 mL (BD POSIFLUSH) Start: 07-16-2020 End: 08-02-2022 sodium chloride 0.9 % (flush ) 10 mL (BD POSIFLUSH) tamsulosin hydrochloride 0.4 mg oral capsule (20 sources) alpha-Adrenergic Jana Start: 01-19-2020 End: 05-28-2020 take 1 capsule by mouth at bedtime Tamsulosin 0.4 MG capsule Discontinued 0.4 mg PO AT BEDTIME January 19, 2020 1:00am May 28, 2020 9:21am Start: 08-02-2010 End: 01-16-2011 take 1 tablet by mouth once daily FLOMAX 0.4 MG CAPS One tablet by mouth daily TAMSULOSIN HCL [id number] Ayejaneen Augustin ticagrelor 90 mg oral tablet (20 sources) Start: 01-31-2019 End: 12-04-2022 take 1 tablet by mouth twice daily Ticagrelor 90 mg tablet Discontinued 90 mg PO TWICE A DAY 60 February 07, 2021 3:33pm December 04, 2022 8:06am Start: 12-04-2017 End: 01-01-2018 take 1 tablet by mouth twice daily Ticagrelor 90 mg tablet Discontinued 90 mg PO TWICE A DAY 180 December 04, 2017 8:39am January 01, 2018 11:26am Comment on above: Take 90 mg by mouth twice daily. Take 1 tablet by antony th twice daily. traMADol hydrochloride 50 mg oral tablet (16 sources) Opioid Agonist Start: 08-02-2010 End: 01-16-2011 TRAMADOL HCL 50 MG TABS As needed TRAMADOL HCL [id number] Ayejaneen Augustin Problems Active Problems Problem Classification Problem Date Documented Date Episodic/Chronic Cardiac dysrhythmias (20 sources) Paroxysmal atrial fibrillation; Translations: [Atrial fibrillation] Onset: 08-02-2010 12-24-2015 Chronic Complication of device; implant or graft (11 sources) Arteriosclerosis of coronary artery bypass graft; Translations: [Atherosclerosis of coronary artery bypass graft(s) without angina pectoris] 01-31-2019 Chronic Conduction disorders (2 sources) First degree atrioventricular block; Translations: [Atrioventricular block, first degree] Onset: 04-23-2024 04-22-2024 Chronic Coronary atherosclerosis and other heart disease (20 sources) Atherosclerotic heart disease of rosebud coronary artery without angina pectoris; Translations: [Coronary arteriosclerosis] Onset: 08-02-2010 12-24-2015 Chronic Coronary atherosclerosis and other heart disease (20 sources) Presence of aortocoronary bypass graft; Translations: [Presence of coronary angioplasty implant and graft] Onset: 08-02-2010 12-24-2015 Episodic Disorders of lipid metabolism (20 sources) Hyperlipidemia; Translations: [Hyperlipidemia, unspecified] Onset: 08-02-2010 08-02-2010 Chronic Heart valve disorders (20 sources) Nonrheumatic aortic (valve) stenosis; Translations: [Aortic valve disorder] Onset: 08-02-2010 12-24-2015 Chronic Comment on above: AVR 12/03/1995; TAVR 23 mm Hinds Sapin S3 valve 04/23/18; ReDo Biobentall (25mm Konect) 01/26/2021 Nonspecific chest pain (20 sources) Chest pain, unspecified; Translations: [Chest pain] Onset: 08-02-2010 Resolved: 12-24-2015 08-02-2010 Episodic Other and unspecified benign neoplasm (1 source) Personal history of colonic polyps; Translations: [Personal history of colonic polyps] 12-04-2022 Episodic Other lower respiratory disease (19 sources) Dyspnea; Translations: [Dyspnea, unspecified] Onset: 12-09-2014 12-09-2014 Episodic Other nutritional; endocrine; and metabolic disorders (20 sources) Obese class I; Translations: [Obesity, unspecified] Onset: 04-24-2018 04-24-2018 Chronic Other upper respiratory infections (6 sources) Upper respiratory infection; Translations: [Acute upper respiratory infection, unspecified] 11-12-2022 Episodic Residual codes; unclassified (1 source) Family history of malignant neoplasm of digestive organs; Translations: [Family history of malignant neoplasm of gastrointestinal tract] 12-04-2022 Episodic Spondylosis; intervertebral disc disorders; other back problems (8 sources) Degeneration of cervical intervertebral disc; Translations: [Other cervical disc degeneration, unspecified cervical region] Onset: 03-16-2015 03-17-2015 Chronic Transient cerebral ischemia (20 sources) Transient cerebral ischemia; Translations: [Transient cerebral ischemic attack, unspecified] Onset: 04-23-2018 04-24-2018 Chronic Unclassified (8 sources) Replacement of aortic valve ; Translations: [Presence of prosthetic heart valve] Onset: 08-02-2010 12-09-2014 Unclassified (5 sources) Long-term drug therapy; Translations: [Other ad terminal makeup operator (current) drug therapy] Onset: 08-02-2010 08-02-2010 Past or Other Problems Problem Classification Problem Date Documented Da te Episodic/Chronic Acute posthemorrhagic anemia (16 sources) Acute posthemorrhagic anemia; Translations: [Acute posthemorrhagic anemia] Onset: 01-26-2021 Resolved: 01-28-2021 02-15-2021 Episodic Administrative/social admission (20 sources) Discharge status; Translations: [Encounter for administrative examinations, unspecified] Onset: 01-25-2021 01-25-2021 Episodic Cardiac dysrhythmias (8 sources) Palpitations; Translations: [Palpitations] Onset: 12-21-2014 12-21-2014 Episodic Coagulation and hemorrhagic disorders (16 sources) Blood coagulation disorder; Translations: [Coagulation defect, unspecified] Onset: 01-26-2021 Resolved: 01-27-2021 02-15-2021 Chronic Complication of device; implant or graft (20 sources) Prosthetic aortic valve stenosis; Translations: [Stenosis of other cardiac prosthetic devices, implants and grafts, initial encounter] Onset: 02-18-2018 02-18-2018 Episodic Complications of surgical procedures or medical care (20 sources) Atrial fibrillation; Translations: [Other postprocedural complications and disorders of the circulatory system, not elsewhere classified] Onset: 01-26-2021 Resolved: 01-28-2021 02-07-2021 Episodic Diabetes mellitus without complication (1 source) Other abnormal glucose; Translations: [Other abnormal glucose] Onset: 12-28-2023 Episodic Fluid and electrolyte disorders (20 sources) Hypervolemia; Translations: [Fluid overload, unspecified] Onset: 01-29-2021 02-02-2021 Episodic Other aftercare (3 sources) Other prison (current) drug therapy; Translations: [Other ad terminal makeup operator (current) drug therapy] Onset: 08-02-2010 08-02-2010 Episodic Other and unspecified benign neoplasm (20 sources) History of polyp of colon; Translations: [Personal history of colonic polyps] Onset: 12-11-2011 12-11-2011 Episodic Other circulatory disease (4 sources) Carotid bruit; Translations: [Other specified symptoms and signs involving the circulatory and respiratory systems] Onset: 12-22-2016 12-22-2016 Episodic Other connective tissue disease (16 sources) Iliotibial band friction syndrome; Translations: [Adhesive capsulitis of shoulder] Onset: 03-16-2015 05-21-2013 Episodic Other gastrointestinal disorders (20 sources) Other specified symptoms and signs involving the digestive system and abdomen; Translations: [Other symptoms involving digestive system] Onset: 08-24-2005 08-24-2005 Episodic Other male genital disorders (20 sources) Disorder of prostate; Translations: [Disorder of prostate, unspecified] Onset: 04-26-2018 04-26-2018 Episodic Other nervous system disorders (20 sources) Postoperative pain ; Translations: [Other acute postprocedural pain] Onset: 01-26-2021 02-02-2021 Episodic Other non-traumatic joint disorders (12 sources) Pain in right shoulder; Translations: [Cervical facet joint pain] Onset: 03-16-2015 03-16-2015 Episodic Other non-traumatic joint disorders (1 source) Pain in left shoulder; Translations: [Pain in left shoulder] Onset: 03-24-2024 Episodic Other non-traumatic joint disorders (1 source) Pain in right wrist; Translations: [Pain in right wrist] Onset: 12-04-2023 Episodic Other nutritional; endocrine; and metabolic disorders (11 sources) Body mass index (BMI) 29.0-29.9, adult; Translations: [Body mass index (BMI) 28.0-28.9, adult] Onset: 11-19-2012 06-22-2016 Episodic Pleurisy; pneumothorax; pulmonary collapse (20 sources) Atelectasis; Translations: [Atelectasis] Onset: 01-27-2021 02-02-2021 Episodic Residual codes; unclassified (20 sources) Family history of cancer of colon; Translations: [Family history of malignant neoplasm of digestive organs] Onset: 12-11-2011 12-11-2011 Episodic Respiratory failure; insufficiency; arrest (adult) (16 sources) Ventilator finding; Translations: [Dependence on respirator [ventilator] status] Onset: 01-26-2021 Resolved: 01-28-2021 02-15-2021 Chronic Spondylosis; intervertebral disc disorders; other back problems (13 sources) Neck pain; Translations: [Cervical facet joint pain] Onset: 03-16-2015 03-16-2015 Episodic Unclassified (20 sources) FH: Raised blood lipids; Translations: [FH: Hypertension] Onset: 11-19-2012 Resolved: 12-24-2015 11-24-2013 Episodic Results Test Name Value Interpretation Reference Range Facility CBC panel Auto (Bld)on 07-10 Erythrocyte distribution width (RBC) [Ratio] 12.7 % Normal 11.5-15.0 [facility] Comment on above: Order Comment: Chet sage Type: BLOOD SPECIMENOrdering Facility: [facility] Address: [address] [place] [address] Performed By: #### 5 8410-2 ####[facility] LABCLIA [id number] [place] [address] [place] Hematocrit (Bld) [Volume fraction] 42.5 % Normal 39.0-51.0 [facility] Comment on above: Order Comment: Chet sage Type: BLOOD SPECIMENOrdering Facility: [facility] Address: [address] [place] [address] Performed By: #### 5 8410-2 ####[facility] LABCLIA [id number] [place] [address] [place] Hemoglobin (Bld) [Mass/Vol] 14.1 g/dL Normal 13.0-17.0 [facility] Comment on above: Order Comment: Speci men Type: BLOOD SPECIMENOrdering Facility: [facility] Address: [address] [place] [address] Performed By: #### 5 8410-2 ####[facility] LABIA [id number] [place] [address] [place] MCH (RBC) [Entitic mass] 29.3 pg Normal 26.0-34.0 [facility] Comment on above: Order Comment: Speci men Type: BLOOD SPECIMENOrdering Facility: [facility] Address: [address] [place] [address] Performed By: #### 5 8410-2 ####[facility] [id number] [place] [address] [place] MCHC (RBC) [Mass/Vol] 33.2 g/dL Normal 30.5-36.0 [facility] Comment on above: Order Comment: Speci men Type: BLOOD SPECIMENOrdering Facility: [facility] Address: [address] [place] [address] Performed By: #### 5 8410-2 ####[facility] [id number] [place] [address] [place] MCV (RBC) [Entitic vol] 88.2 fL Normal 80.0-100.0 [facility] Comment on above: Order Comment: Speci men Type: BLOOD SPECIMENOrdering Facility: [facility] Address: [address] [place] [address] Performed By: #### 5 8410-2 ####[facility] [id number] [place] [address] [place] Nucleated RBC (Bld) [#/Vol] 10*3/uL Normal <0.01 [facility] Comment on above: Order Comment: Speci men Type: BLOOD SPECIMENOrdering Facility: [facility] Address: [address] [place] [address] Performed By: #### 5 8410-2 ####[facility] LABCLIA [id number] [facility] [address] [place] [address] [place] Platelet mean volume (Bld) [Entitic vol] 9.2 fL Normal 9.0-12.7 [facility] Comment on above: Order Comment: Speci men Type: BLOOD SPECIMENOrdering Facility: [facility] Address: [address] [place] [address] Performed By: #### 5 8410-2 ####[facility] LABCLIA [id number] [facility] [address] [place] [address] [place] Platelets (Bld) [#/Vol] 206 10*3/uL Normal 150-400 [facility] Comment on above: Order Comment: Speci men Type: BLOOD SPECIMENOrdering Facility: [facility] Address: [address] [place] [address] Performed By: #### 5 8410-2 ####[facility] LABIA [id number] [facility] [address] [place] [address] [place] RBC (Bld) [#/Vol] 4.82 10*6/uL Normal 4.20-6.00 [facility] Comment on above: Order Comment: Speci men Type: BLOOD SPECIMENOrdering Facility: [facility] Address: [address] [place] [address] Performed By: #### 5 8410-2 ####[facility] LABCLIA [id number] [address] [place] [address] [place] WBC (Bld) [#/Vol] 5.76 10*3/uL Normal 3.70-11.00 [facility] Comment on above: Order Comment: Speci men Type: BLOOD SPECIMENOrdering Facility: [facility] Address: [address] [place] [address] Performed By: #### 5 8410-2 ####[facility] LABIA [id number] [facility] [address] [place] [address] [facility] CNOVon 07-10-2024 CNOV Office Visit (CATHMN ) CHLOE WILCOX ([id number]) 1950 M Date Time Provider Department 07/10/24 9:30 AM KURTIS HASTINGS CATHMN During your visit today, we recorded the following information about you: Pulse Blood pressure 62/minute 114/66 Kurtis Hastings MD 07/10/2024 9:32 AM Signed Heart, Vascular [facility] Thor[facility] [place] [facility] Department of Cardiovascular Medicine SECTION OF INTERVENTIONAL CARDIOLOGY OUTPATIENT VISIT DATE July 10, 2024 OUTPATIENT VISIT TYPE ESTABLISHED PRIMARY CARE PHYSICIAN: [address] [place] [address] REFERRING PHYSICIAN: No referring provider defined for this encounter. CHIEF COMPLAINT: 01/26/2021; 3rd redo sternotomy, homograft removal, AVR/Root replacement (Konect 25), CABGx3 (Lt. 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 Wilcox is feeling very well following PCI. He is doing cardiac rehab and getting his heart rate up to around 90 to 94% MPR. ECG today shows sinus rhythm. Lab test showed LDL of 30, HDL 43 and triglycerides 110. His echocardiogram during his admission showed an LVEF of 68%, the aortic bioprosthetic valve is well-seated, no PVL, mean transaortic gradient of 6 mmHg with a DI of 0.65. PAST CARDIAC HISTORY: See HPI PAST MEDICAL HISTORY Diagnosis Date Aortic valve disorders Aortic valve disorders CAD (coronary artery disease) Hx of CABG Hyperlipidemia Presence of stent in coronary artery TIA (transient ischemic attack) Urinary retention PAST SURGICAL HISTORY Procedure Laterality Date COLSC FLX W/RMVL OF TUMOR POLYP LESION SNARE TQ 09/01/05 CORONARY ARTERY BYP W/VEIN AND ARTERY GRAFT 3 VEIN 2010 CABG, three grafts HEMORRHOIDECTOMY PAST SURGICAL HISTORY OF 1967 excision of chest lump PAST SURGICAL HISTORY OF 12/03/1995 Minimally invasive incision; aortic valve replacement with a PAST SURGICAL HISTORY OF 04/23/2018 TAVR SOCIAL HISTORY Social History Tobacco Use Smoking status: Never Smokeless tobacco: Never Substance Use Topics Alcohol use: Yes Comment: occ Drug use: No FAMILY HISTORY Problem Relation Age of Onset Cancer Father Colon Cancer Father from cancer other (Myocardial infarction) Mother 70 other (Myocardial infarction) Sister 70 CABG other (Myocardial infarction) Brother 62 CABG age 55, coronary stents other (Myocardial infarction) Maternal Grandmother 92 other (Brain aneurysm) Paternal Grandmother 70 other (CABG) Brother other (coronary stents) Brother other (coronary stents) Brother carotid artery disease ALLERGIES: ALLERGIES Allergen Reactions Ragweed Pollen Itching, Other: See Comments MEDICATIONS: Current Outpatient Medications Medication Sig evolocumab 140 mg/mL subcutaneous pen injector (TraklightATHBoundlessCLICK) Inject 140 mg subcutaneously every 2 weeks. acetaminophen (TYLENOL) 325 mg tablet Take 2 tablets by mouth every 4 hours as needed for pain. aspirin 81 mg chewable tablet Take 1 tablet by mouth once daily. isosorbide mononitrate ER (IMDUR) 60 mg 24 hr tablet Take 1 tablet by mouth once daily. Patient should start on April 16, 2024. nitroglycerin sublingual (NITROQUICK) 0.4 mg SL tablet Dissolve 1 tablet under the tongue every 5 minutes as needed. clopidogrel (PLAVIX) 75 mg tablet Take 1 tablet by mouth once daily. atorvastatin (LIPITOR) 80 mg tablet Take 1 tablet by mouth daily at bedtime. amLODIPine (NORVASC) 2.5 mg tablet Take 1 tablet by mouth once daily. Ipratropium [place] (ATROVENT) 21 mcg (0.03 %) nasal spray Amoxicillin 500 mg tablet Take 4 tablets by mouth as needed. Prior to dental procedures cetirizine (ZYRTEC) 10 mg tablet Take 10 mg by mouth as needed. albuterol HFA (VENTOLIN HFA) 90 mcg/actuation inhaler Inhale 2 Puffs as instructed every 4 hours as needed for Wheezing/Shortness of Breath. Multivitamin capsule Take 1 capsule by mouth once daily. No current facility-administered medications for this visit. REVIEW OF SYSTEMS: GENERAL: negative for: fevers, chills, and change in weight HEENT: negative for: headaches, hearing loss, difficulty swallowing, visual changes, nose bleeds, dentures, own teeth SKIN: rashes, lesions, and ulcers RESPIRATORY: SEE HPI CARDIOVASCULAR: See HPI GASTROINTESTINAL: negative for: abdominal pain, nausea, vomiting, difficulty or painful swallowing, and melanotic stools GENITOURINARY: negative for: dysuria, frequency, nocturia, and male potency MUSCULOSKELETAL: negative for: joint pain, joint swelling, muscle pain or myalgias, and pain with walking NEUROLOGIC: negative for: numbness, tingling, and sensation of pins and needles HEMATOLOGY: negative for: bruising easily, (more content not included)... Normal [facility] Comprehensive metabolic 2000 panelon 07-10-2024 Albumin [Mass/Vol] 4.2 g/dL Normal 3.9-4.9 [facility] Comment on above: Order Comment: Speci men Type: BLOOD SPECIMENOrdering Facility: [facility] Address: [address] [place] [address] Performed By: #### 2 4323-8, 99467-1 ####[facility] LABIA [id number] [place] [address] [place] ALP [Catalytic activity/Vol] 110 U/L Normal 38-113 [facility] Comment on above: Order Comment: Speci men Type: BLOOD SPECIMENOrdering Facility: [facility] Address: [address] [place] [address] Performed By: #### 2 4323-8, 76320-5 ####[facility] LABIA [id number] [place] [address] [place] ALT [Catalytic activity/Vol] 20 U/L Normal 10-54 [facility] Comment on above: Order Comment: Speci men Type: BLOOD SPECIMENOrdering Facility: [facility] Address: [address] [place] [address] Performed By: #### 2 4323-8, 71911-9 ####[facility] LABCLIA [id number] [facility] [address] [place] [address] [place] Anion gap [Moles/Vol] 8 mmol/L Normal 8-15 [facility] Comment on above: Order Comment: Speci men Type: BLOOD SPECIMENOrdering Facility: [facility] Address: [address] [place] [address] Performed By: #### 2 4323-8, 35758-7 ####[facility] LABCLIA [id number] [address] [place] [address] [place] AST [Catalytic activity/Vol] 22 U/L Normal 14-40 [facility] Comment on above: Order Comment: Speci men Type: BLOOD SPECIMENOrdering Facility: [facility] Address: [address] [place] [address] Performed By: #### 2 4323-8, 02093-2 ####[facility] LABCLIA [id number] [address] [place] [address] [place] Bilirubin [Mass/Vol] 0.9 mg/dL Normal 0.2-1.3 [facility] Comment on above: Order Comment: Speci men Type: BLOOD SPECIMENOrdering Facility: [facility] Address: [address] [place], [place] [address] Performed By: #### 2 4323-8, 78633-7 ####[facility] LABCLIA [id number] [address] [place] [address] [place] Calcium [Mass/Vol] 9.6 mg/dL Normal 8.5-10.2 [facility] Comment on above: Order Comment: Speci men Type: BLOOD SPECIMENOrdering Facility: [facility] Address: [address] [place], [place] [address] Performed By: #### 2 4323-8, 87717-9 ####[facility] LABCLIA [id number] [address] [place] [address] [place] Chloride [Moles/Vol] 103 mmol/L Normal 98-107 [facility] Comment on above: Order Comment: Speci men Type: BLOOD SPECIMENOrdering Facility: [facility] Address: [address] [place] [address] Performed By: #### 2 4323-8, 14883-2 ####[facility] LABIA [id number] [place] [id number] [place] CO2 [Moles/Vol] 29 mmol/L Normal 22-30 [facility] Comment on above: Order Comment: Speci men Type: BLOOD SPECIMENOrdering Facility: [facility] Address: [address] [place] [address] Performed By: #### 2 4323-8, 54887-3 ####[facility] LABIA [id number] [address] [place] Creatinine [Mass/Vol] 1.01 mg/dL Normal 0.73-1.22 [facility] Comment on above: Order Comment: Speci men Type: BLOOD SPECIMENOrdering Facility: [facility] Address: [address] [place] [address] Performed By: #### 2 4323-8, 26036-6 ####[facility] [id number] [address] [facility] Creatinine and Glomerular filtration rate.predicted panel (S/P/Bld) 79 mL/min/1.73m??? Normal >=60 [facility] Comment on above: Order Comment: Speci men Type: BLOOD SPECIMENOrdering Facility: [facility] Address: [address] [place] [address] Result Comment: Eladia mated Glomerular Filtration Rate (eGFR) is calculated using the 2020 CKD-EPI creatinine equation. This equation utilizes serum creatinine, sex, and age as parameters. The creatinine assay has traceable calibration to isotope dilution-mass spectrometry. Refer to KDIGO guidelines for clinical interpretation. In patients with unstable renal function, e.g. those with acute kidney injury, the eGFR may not accurately reflect actual GFR. Performed By: #### 2 4323-8, 65323-5 ####[facility] LABIA [id number] [address] [address] [place] Glucose [Mass/Vol] 87 mg/dL Normal 74-99 [facility] Comment on above: Order Comment: Speci men Type: BLOOD SPECIMENOrdering Facility: [facility] Address: [address] [place] [address] Result Comment: The [place] [employer] Association (ADA) provides guidance for cutoff values for fasting glucose and random glucose. The ADA defines fasting as no caloric intake for at least 8 hours. Fasting plasma glucose results between 100 to 125 mg/dL indicate increased risk for diabetes (prediabetes). Fasting plasma glucose results greater than or equal to 126 mg/dL meet the criteria for diagnosis of diabetes. In the absence of unequivocal hyperglycemia, results should be confirmed by repeat testing. In a patient with classic symptoms of hyperglycemia or hyperglycemic crisis, random plasma glucose results greater than or equal to 200 mg/dL meet the criteria for diagnosis of diabetes. Reference: Standards of Medical Care in Diabetes 2016, [place] [employer] Association. Diabetes Care. 2016.39(Suppl 1). Performed By: #### 2 4323-8, 03804-1 ####[facility] LABIA [id number] [place] [id number] [place] Potassium [Moles/Vol] 4.9 mmol/L Normal 3.7-5.1 [facility] Comment on above: Order Comment: Hafsai men Type: BLOOD SPECIMENOrdering Facility: [facility] Address: [address] [place] [address] Performed By: #### 2 4323-8, 34596-7 ####[facility] [id number] [place] [id number] [place] Protein [Mass/Vol] 6.7 g/dL Normal 6.3-8.0 [facility] Comment on above: Order Comment: Speci men Type: BLOOD SPECIMENOrdering Facility: [facility] Address: [address] [place] [address] Performed By: #### 2 4323-8, 73379-2 ####[facility] LABCLIA [id number] [address] [address] [place] Sodium [Moles/Vol] 140 mmol/L Normal 136-144 [facility] Comment on above: Order Comment: Speci men Type: BLOOD SPECIMENOrdering Facility: [facility] Address: [address] [place] [address] Performed By: #### 2 4323-8, 27899-8 ####[facility] LABIA [id number] [place] [address] [place] Urea nitrogen [Mass/Vol] 16 mg/dL Normal 9-24 [facility] Comment on above: Order Comment: Speci men Type: BLOOD SPECIMENOrdering Facility: [facility] Address: [address] [place] [address] Performed By: #### 2 4323-8, 72660-0 ####[facility] LABIA [id number] [place] [id number] [place] Lipid 1996 panelon 5 Cholesterol [Mass/Vol] 90 mg/dL Normal <200 [facility] Comment on above: Order Comment: Speci men Type: BLOOD SPECIMENOrdering Facility: [facility] Address: [address] [place] [address] Result Comment: <200 mg/dL, Desirable 200-239 mg/dL, Borderline high >239 mg/dL, High Performed By: #### 2 4323-8, 43748-7 ####[facility] LABIA [id number] [place] [id number] [place] Cholesterol in HDL [Mass/Vol] 42 mg/dL Normal >39 [facility] Comment on above: Order Comment: Speci men Type: BLOOD SPECIMENOrdering Facility: [facility] Address: [address] [place] [address] Result Comment: 40-5 9 mg/dL, Acceptable >59 mg/dL, High: Negative risk factor for coronary heart disease <40 mg/dL, Low: Positive risk factor for coronary heart disease Performed By: #### 2 4323-8, 29984-4 ####[facility] LABCLIA [id number] [address] [address] [place] Cholesterol in LDL [Mass/Vol] 30 mg/dL Normal <100 [facility] Comment on above: Order Comment: Speci men Type: BLOOD SPECIMENOrdering Facility: [facility] Address: [address] [place] [address] Result Comment: <100 mg/dL, Optimal 100-129 mg/dL, Near optimal/above optimal 130-159 mg/dL, Borderline high 160-189 mg/dL, High >189 mg/dL, Very high Secondary prevention optimal LDL Cholesterol levels are recommended to be <70 mg/dL LDL cholesterol is calculated using the Saenz-NIH equation. Performed By: #### 2 4323-8, ####[facility] LABCLIA [id number] [place] [address] [place] Cholesterol in LDL/Cholesterol in HDL [Mass ratio] 0.71 {ratio} Normal <2.54 [facility] Comment on above: Order Comment: Speci men Type: BLOOD SPECIMENOrdering Facility: [facility] Address: [address] [place] [address] Result Comment: Edward nickerson: 1. National Cholesterol Education Program ATP III Guideline At-A-Glance Quick Desk Reference: National Heart, Lung, and Blood [place]. National Institutes of Health. 2001: NIH Publication No. 01-3305. 2. An International Atherosclerosis Society position paper: global recommendations for the management of dyslipidemia: executive summary, Atherosclerosis. 2014: 232(2):410-413. Performed By: #### 2 4323-8, ####[facility] LABCLIA [id number] [place] [id number] [place] Cholesterol in VLDL [Mass/Vol] 12 mg/dL Normal <30 [facility] Comment on above: Order Comment: Speci men Type: BLOOD SPECIMENOrdering Facility: [facility] Address: [address] [place] [address] Performed By: #### 2 4323-8, ####[facility] LABCLIA [id number] [facility] [id number] [address] [place] Cholesterol non HDL [Mass/Vol] 48 mg/dL Normal <130 [facility] Comment on above: Order Comment: Speci men Type: BLOOD SPECIMENOrdering Facility: [facility] Address: [address] [place] [address] Result Comment: <130 mg/dL, Optimal 130-159 mg/dL, Near optimal/above optimal 160-189 mg/dL, Borderline high 190-219 mg/dL, High >219 mg/dL, Very high Secondary prevention optimal non HDL Cholesterol levels are recommended to be <100 mg/dL Performed By: #### 2 4323-8, ####[facility] LABCLIA [id number] [facility] [address] [place] [address] [place] Cholesterol.total/Chol esterol in HDL [Mass ratio] 2.14 {ratio} Normal <5.10 [facility] Comment on above: Order Comment: Speci men Type: BLOOD SPECIMENOrdering Facility: [facility] Address: [address] [place], [place] [address] Performed By: #### 2 4323-8, ####[facility] LABCLIA [id number] [facility] [address] [place] [address] [place] FASTING TIME 12 hrs Normal [facility] Comment on above: Order Comment: Speci men Type: BLOOD SPECIMENOrdering Facility: [facility] Address: [address] [place], [place] [address] Performed By: #### 2 4323-8, ####[facility] LABCLIA [id number] [facility] [address] [place] [address] [place] Triglyceride [Mass/Vol] 90 mg/dL Normal <150 [facility] Comment on above: Order Comment: Speci men Type: BLOOD SPECIMENOrdering Facility: [facility] Address: [address] [place] [address] Result Comment: <150 mg/dL, Normal 150-199 mg/dL, Borderline high 200-499 mg/dL, High >499 mg/dL, Very high Performed By: #### 2 4323-8, 23419-6 ####[facility] LABCLIA [id number] [facility] [id number] [place] [address] [place] No Panel InformationOrdered By: Dima Doe on 06-25-2024 [facility] Cardiac Rehab [address] [place] [address] CR - Individual Treatment Plan MR#: [id number] Acct: [id number] Name: CHLOE WILCOX Rep #:[id number] : 1950 73 From: Dima Smiley BS, RVT PCP: Dr. Gatito Leon MD DOS: 5 Exercise - Initial Assessment Physician Prescribed Exercise Modalities: Treadmill, Schwinn Airdyne AD-7 and SciFit Stepper Nutrition - Initial Assessment Weight Mgt (Other Care) Height: 5 ft 4 in Weight:: 172 lb BMI: 29.5 Core - Initial Assessment Hypertension Resting Blood Pressure:: 108/64 [place] [employer] Hypertension Guidelines Psychosocial - Initial Assess Target Goals Target Goals Referral to Behavioral Health PS - Interventions: Yes: Attend Stress Management Classes Patient Health Questionnaire PHQ-9 Screening 60-Day Re-eval Assessment: 1. Little interest or pleasure in doing things: Not at all 2. Feeling down, depressed, or hopeless: Not at all 3. Trouble falling or staying asleep, or sleeping too much: Several days 4. Feeling tired or having little energy: Several days 5. Poor appetite or overeating: Not at all 6. Feeling bad about yourself -- or that you are a failure or have let yourself or your family down: Not at all 7. Trouble concentrating on things, such as reading the newspaper or watching television: Not at all 8. Moving or speaking so slowly that other people could have noticed. Or the opposite - being so fidgety or restless that you have been moving around a lot more than usual: Not at all 9. Thoughts that you would be better off , or of hurting yourself in some way: Not at all How difficult have these problems made it for you to do your work, take care of things at home, or get along with other people?: Not difficult at all Total Score: 2 Nutrition Survey Nutrition Survey Instructions Scoring Instructions Exercise - 30-day Assessment Physician Prescribed Exercise Modalities: Treadmill, Schwinn Airdyne AD-7 and SciFit Stepper Exercise - 60-day Assessment Visit Date of Eval: 06/25/24 Session #:: 24 Physician Prescribed Exercise Modalities: Treadmill, Schwinn Airdyne AD-7 and SciFit Stepper Frequency: 3x/week for 12 weeks [36 sessions] Intensity: 60-80% of age predicted maximum heart rate reserve Duration: 30 - 45 minutes Current METSs:: 6.1 Target Heart Rate:: 89-118 Current RPE:: 12.5-13.5 Maximum Excercise HR:: 128 Resting Blood Pressure: 116/66 Maximum Exercise Blood Pressure: 160/80 EKG Type: NSR to ST w/ rare PAC Outcomes & Goals Goals:: Verbalizes understanding of THR, RPE & goal METS by session 6, Documentsin home exercise log/reports 30 min aerobic 5 day/wk by DC, Demonstrates accurate pulse taking by DC and Other additional outcome/goals: see below Intervention & Plan Exercise Program Goals: Instruct on personal THR & RPE, Instruct on MET level & personal MET goal, Show patient to take own pulse /validate performance until accurate, Instruct on home exercise and Other additional plan/int Physical Activity Home Exercise Physical Activity - Home Exercise: Safe Exercise, Warm-up, Self-monitoring, Cool-Down, Home Exercise > 30 min Daily and Sitting Time <3 hours/daily Outcomes & Goals Outcomes/Goals: Demonstrates correct Warm-up/exercise Cool-Down (S3) if = 2.5 METs, Verbalizes symptoms of exercise intolerance by Session 3 (S3), Demonstratesafe equipment use (S3) & follows exercise prescrition (6) and Other: See below Intervention & Plan Plan/Intervention: Instruct warm-up & cool-down if exercising at > 2 METs, Instruct on symptoms of exercise intolerance & actions to take, Instruct & monitor on saf, Assess intial functional capacity & safety risk and Other See below 30-day Reassessments 30 day Reassessments:: Progressing Reassessment Notes & Comments:: Proper warm up and cool down demonstrated and explained to pt. Pt is able to return demonstration. Exercise - 90-day Assessment Physician Prescribed Exercise Modalities: Treadmill, Schwinn Airdyne AD-7 and SciFit Stepper Exercise - Final/Discharge Physician Prescribed Exercise Modalities: Treadmill, Schwinn Airdyne AD-7 and SciFit Stepper Nutrition - 30-Day Assessment Weight Mgt (Other Care) Height: 5 ft 4 in Weight:: 172 lb BMI: 29.5 Nutrition - 60-Day Assessment Program Goals Nutrition Program Goals Patient has diagnosis of Hyperlipidemia (ICD E78)?: Yes Visit Date of Eval: 06/25/24 Session #:: 24 Cholesterol/Lipids (Other Core Measures) Determine presence & major risk factors that modify LDL goal: Hypertension or hypertensive medication, Low HDL cholesterol <40 mg/dL*, Family history of premature CHD in Male < 55 years: female <65 yearsFa and Age men > 45 years; women >/= 55 years Outcomes/Goals: Pt IDs own risk factors & lifestyle modifications by Session 10,Verbalizes symptoms of angina & response by session 3., Pt independently managesand Other Additional Outcomes/Goals: Intervention/Plan: Advocate for lipid panel cholesterol medication if applicable, Instruct on personal lipid levels & lipid goals/ (more content not included)... [facility] PT D/C Summary (1)on 025 PT D/C Summary (1) [facility] Physical Therapy [facility] [address] [place] [address] [address] [place] [address] / REHABILITATION SERVICES DISCHARGE SUMMARY MR#: [id number] Acct: [id number] Name: CHLOE WILCOX Rep #: [id number] : 1950 73 From: Jeremy Medley DPT Referring Dr.: Tino Ac MD Status: REG RCR Insurance: MEDICARE PART A B [facility] Discharge Summary D/C summary: It has been my pleasure to treat CHLOE WILCOX referred by Dr. Tino Ac MD, with the diagnosis of L RTC tear for a total of 19 visit(s). Discharge Date: 06/03/24 Please see the following information for a summary of their discharge status. Subjective Subjective: Pt. reports overall doing well. Pt. reports having some soreness with baseball activities, but overall doing well. He reports having good HEP and good compliance. Pt. reports being 80% better overall. Pain L shoulder: Pain Intensity (Out of 10): 0 Overall Improvement % Improvement: 75 Objective Objective/Function: Pt. has close to full ROM of his L shoulder. Pt. did have some soreness with OP at end ranges. MMT: L shoulder: flexion 21#, abd 20#, ER 17, IR 28 R shoulder: flexion 24#, abd 23#, ER 21, IR 27 Pt. is overall doing well. He does have some soreness Pt. given ER/IR and mid rows for HEP. Goals Goal 1:: LTG: Pt. to be I with HEP. Goal Progress: Goal Met Goal 2:: STG: pt. to sleep throughout the night without increase in symptoms. Goal Progress: Goal Met Goal 3:: LTG: Pt. to have symmetrical strength between BUEs. Goal Progress: Goal Met Goal 4:: LTG: Pt. to have full pain free L shoulder ROM. Goal Progress: Goal Met Goal 5:: LTG: Pt. to complete all ADls without increase in L shoulder pain. Goal Progress: Goal Met Plan Plan: Pt. to be DC from PT at this point in time. D/C Information d/c sentence: If there are questions or concerns regarding this patient's physical therapy, please feel free to call me at [phone]. Thank you for the referral of this patient. Sincerely, Jeremy Gil Sipos, DPT Balance/Gait/Function al tests Balance/Special Test Scores Quick DASH Score: 0 Improvement % Improvement: 75 06/03/24 0847 CC: Dr. Gatito Leon MD; Tino Ac MD CLS Signed Normal [facility] Re-Evaluation - PT (1)on Re-Evaluation - PT (1) [facility] Physical Therapy [facility] [address] [place] [address] [address] [place] [address] / REEVALUATION / MEDICARE RECERTIFICATION PHYSICAL THERAPY MR#: [id number] Acct: [id number] Name: CHLOE WILCOX Rep #: [id number] : 1950 73 From: Jeremy Medley DPT Referring Dr.: Tino Ac MD Status:REG RCR Insurance: MEDICARE PART A B [employer] Re-Evaluation Intro: Dr. Tino Ac MD, It has been my pleasure to treat CHLOE WILCOX over the last 10 visits for L RTC tear. Please see the progress note below for an update on the physical therapy plan of care! Subjective Subjective: pt. reports overall doing better, but still has problems with lifting grand children and with moving in awkward positions. Objective Objective/Function: L shoulder AROM: flexion 150deg, abd 140deg increase NW at 95deg., functional IR L3 increase NW, functional ER NE. PROM: L shoulder: flexion 170deg, abd 165deg , ER at 90deg of abd 90deg mild increase NW, functional IR at 90deg of abd 50deg. MMT: R shoulder: flexion 5/5, abd 5/5, ext 5/5, ER 5/5, IR 5/5 L shoulder: flexion 4+/5, abd 4/5, ext 5/5, ER 4+/5, IR 5/5 Pt. still has pain with [place] movements and with abduction. Pt. would like to be able to lift his grandchildren and be able to move with out fear of increased L shoulder pain. I would suggest continuing to work on ROM and deltoid, RTC strengthening. Plan Plan Plan: 1) DFM biceps and supraspinatus insertion 2) Inferior glides iwth shoulder abd and flexion motions 3) scapular and periscapular strengthening progress RTC and deltoid strengthening. Balance/Gait/Function al tests Balance/Special Test Scores Quick DASH Score: 25.0000 Goals Goals Goal 1:: LTG: Pt. to be I with HEP. Goal Time Frame: 4-6 Weeks Goal Progress: Progressing Goal 2:: STG: pt. to sleep throughout the night without increase in symptoms. Goal Time Frame: 2-4 Weeks Goal Progress: Goal Met Goal 3:: LTG: Pt. to have symmetrical strength between BUEs. Goal Time Frame: 4-6 Weeks Goal Progress: Progressing Goal 4:: LTG: Pt. to have full pain free L shoulder ROM. Goal Time Frame: 4-6 Weeks Goal Progress: Progressing Goal 5:: LTG: Pt. to complete all ADls without increase in L shoulder pain. Goal Time Frame: 4-6 Weeks Goal Progress: Progressing Anticipated Interventions Anticipated Interventions Patient/Client Instruction: Educate patient on: Condition, Plan of Care, Risk Factors and Benefits of Fitness Program For the Purpose of:: To improve decision making, To facilitate caregiver knowledge, To improve self management, To prevent re-injury and To improve ability to perform tasks related to life management Therapeutic Exercise to Include: Strength training, Power training, Flexibilty training, Passive ROM, Active ROM and Scapular Strength/Stabilizatio n For the Purpose of:: To decrease pain, To increase ROM, To improve nutrient delivery to tissue, To increase oxygenation perfusion, To improve muscle performance and motor function and To improve ability to perform ADL's Manual Therapy Techniques to Include: Mobilization and Soft tissue mobilization Comment: DFM For the Purpose of:: To decrease pain, To increase ROM, To improve nutrient delivery to tissue, To increase oxygenation perfusion, To improve muscle performance and motor function, To decrease soft tissue restriction and To increase flexibility/ROM Ultrasound (thermal/non thermal): Yes For the Purpose of:: To decrease pain, To decrease swelling/inflammation and To increase ROM Re-Evaluation Ending Re-evaluation ending: Please do not hesitate to contact me at [phone] by phone or if you have questions or concerns regarding this new plan of care! Sincerely, Jeremy Medley DPT 04/30/24 9705 CC: Dr. Gatito Leon MD; Tino Ac MD CLS Signed For Medicare only, by signing this I certify the plan of care. Physicians Signature Date Normal [facility] CR - History AND Physicalon 04-28-2024 CR - History & Physical [facility] Cardiac Rehab [address] [place] [address] CR - History Physical MR#: [id number] Acct: [id number] Name: CHLOE WILCOX Rep #: [id number] : 1950 73 From: Dima CHAUDHARY, RVT PCP: Dr. Gatito Leon MD DOS: 04/28/24 CR - History Physical General Arrival date:: 04/28/24 Arrival time:: 08:11 Date of Referral:: 04/23/24 Date of CR Evaluation:: 04/28/24 Referring Physician: Dr. Kurtis Hastings Primary Diagnosis: PCI with stent History of Present Cardiac Event Onset Date PTCA or coronary stenting:: Yes (04/14/24 onset) Medications Ambulatory Orders ???Medication ???Instructions ???Recorded cetirizine 10 mg tablet (Zyrtec) 5 mg PO QDAY PRN Allergies 7 multivitamin with folic acid 400 1 tab PO DAILY 01/07/19 mcg tablet albuterol sulfate 90 mcg/actuation 1 dose inhalation DAILY PRN 10/21 06/08 aerosol inhaler shortness of breath or wheezing amlodipine 2.5 mg tablet 2.5 mg PO QHS 04/06/21 atorvastatin 40 mg tablet 80 mg PO QHS 04/06/21 evolocumab 420 mg/3.5 mL 420 mg subcut .montly 04/06/21 subcutaneous wearable injector (Repatha Pushtronex) clopidogrel 75 mg tablet 75 mg PO DAILY 01/03/23 Allergies Allergies Food Allergies: Uncoded Allergy (Verified 01/05/23 10:19) Hives swedish food ragweed pollen Allergy (Verified 01/05/23 10:19) Other itching Sleep Disorder Evaluation Hx of Sleep Apnea: No Do you snore loudly (louder than talking or can be heard through closed doors)?: Yes Do you often feel tired/ fatigued/ sleepy during daytime?: No Has anyone observed you stop breathing during sleep?: No History of Hypertension (for STOP score): No STOP Results: Negative Advanced Directives Advanced Directives Power of Tire Molder: Yes Living Will: Yes Advance Directives Information Provided: Yes Advance Directives on File: No DNR Order?:: No Past Medical History Covid-19 Screening Physicial Symptoms Other Clinical Concerns Exposure Risk Pertinent Comorbidities 65 years or older:: Yes Has a serious heart condition:: Yes Past Medical Illness Past Medical History (Updated 01/03/23 @ 12:04 by Marline Weiner) Loss of hearing H91.90 Wears glasses Z97.3 Alcohol use Z78.9 OCC Back pain M54.9 OCC Shortness of breath on exertion R06.02 WITH 2 FLIGHTS OF STAIRS Non-smoker Z78.9 Leg cramps R25.2 OCC History of edema Z87.898 MILD LOWER LEGS History of stress test Z92.89 2020 History of echocardiogram Z92.89 2022 Cardiology follow-up encounter Z09 [facility] LAST VISIT 05/2020. 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 NO DEFICITS Paroxysmal atrial fibrillation I48.0 Personal history of colonic polyps Z86.010 Hyperlipidemia E78.5 DDD (degenerative disc disease), cervical M50.30 Arthritis M19.90 Past Surgical History Past Surgical History (Updated 01/03/23 @ 12:04 by Marline Weiner) Hx of hemorrhoidectomy Z98.890 History of excision of lesion Z98.890, Z87.2 BENIGN TUMOR REMOVED Hx of colonoscopy Z98.890 History of left heart catheterization (08/30/20) Z98.890 01/19/2020, 08/30/20 History of coronary artery stent placement (01/19/20) Z95.5 PCI-MELVIN-Mid SVG-OM1 w/ 3.0 x 12 mm Synergy MR Stent 12/03/17; FGB-ORL-Wrxajr LM and Ostial LCx w/ 3.0 x 24 mm Synergy Stent 01/30/19; UCA-ISCN-YZG-Ostial LCx, LFC-ZNH-Nxuk SVG-LAD w/ 4. x 16 mm Synergy Stent and Mid SVG-LAD w/ 4.0 x 32 mm Synergy Stent. 01/19/2020 H/O aortic valve replacement (01/26/21) Z95.2 AVR 12/03/1995; TAVR 23 mm Hinds Sapin S3 valve 04/23/18; ReDo Biobentall (25mm Konect) 01/26/2021 H/O coronary artery bypass surgery (01/26/21) Z95.1 CABG x 3: SVG-LAD, SVG-OM1, SVG-RPDA 06/23/2010; Re-Do x 3 Redo Biobentall (25mm Konect), CABG x 3: (Radial-PDA, SVG-OM1, SVG-OM2) 01/26/2021 Surgical History: - (replacement of aortiv valve) Family History Summary Family History Brother CAD (coronary artery disease) 2nd brother CABG Brother CAD (coronary artery disease) 3rd brother PCI-Stents Brother CAD (coronary artery disease) 4 brother PCI-Stents and CABG Brother CAD (coronary artery disease) 6th brother PCI-Stents Sister Hypertension CAD (coronary artery disease) CABG age 70 Other Colon cancer Social History Smoking History Smoking Status: Never smoker Alcohol Use Alcohol [place] (more content not included)... Normal [facility] Cardiac rehabilitation evalu ation reportOrdered By: Dima Doe on 04-28-2024 Study report [facility] Cardiac Rehab [address] [place] [address] CR - History & Physical MR#: [id number] Acct: [id number] Name: CHLOE WILCOX Rep #:[id number] : 1950 73 From: iDma Smiley BS, RVT PCP: Dr. Gtaito Leon MD DOS: 5 CR - History & Physical General Arrival date:: 04/28/24 Arrival time:: 08:11 Date of Referral:: 04/23/24 Date of CR Evaluation:: 04/28/24 Referring Physician: Dr. Kurtis Hastings Primary Diagnosis: PCI with stent History of Present Cardiac Event Onset Date PTCA or coronary stenting:: Yes (04/14/24 onset) Medications Ambulatory Orders ?Medication ?Instructions ?Recorded cetirizine 10 mg tablet (Zyrtec) 5 mg PO QDAY PRN Valdemar rgies 02/07/17 multivitamin with folic acid 400 1 tab PO DAILY mcg tablet albuterol sulfate 90 mcg/actuation 1 dose inhalation D AILY PRN 11/13/19 aerosol inhaler shortness of breath or wheez ing amlodipine 2.5 mg tablet 2.5 mg PO QHS 04/06/21 atorvastatin 40 mg tablet 80 mg PO QHS 04/06/21 evolocumab 420 mg/3.5 mL 420 mg subcut .montly subcutaneous wearable injector (Repatha Pushtronex) clopidogrel 75 mg tablet 75 mg PO DAILY 01/03/23 Allergies Allergies Food Allergies: Uncoded Allergy (Verified 01/05/23 10:19) Hives swedish food ragweed pollen Allergy (Verified 01/05/23 10:19) Other itching Sleep Disorder Evaluation Hx of Sleep Apnea: No Do you snore loudly (louder than talking or can be heard through closed doors)?:Yes Do you often feel tired/ fatigued/ sleepy during daytime?: No Has anyone observed you stop breathing during sleep?: No History of Hypertension (for STOP score): No STOP Results: Negative Advanced Directives Advanced Directives Power of T[employer] Molder: Yes Living Will: Yes Advance Directives Information Provided: Yes Advance Directives on File: No DNR Order?:: No Past Medical History Covid-19 Screening Physicial Symptoms Other Clinical Concerns Exposure Risk Pertinent Comorbidities 65 years or older:: Yes Has a serious heart condition:: Yes Past Medical Illness Past Medical History (Updated 01/03/23 @ 12:04 by Marline Weiner) Loss of hearing H91.90 Wears glasses Z97.3 Alcohol use Z78.9 OCC Back pain M54.9 OCC Shortness of breath on exertion R06.02 WITH 2 FLIGHTS OF STAIRS Non-smoker Z78.9 Leg cramps R25.2 OCC History of edema Z87.898 MILD LOWER LEGS History of stress test Z92.89 2020 History of echocardiogram Z2022 Cardiology follow-up encounter Z09 G LAST VISIT 05/2020. 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 NO DEFICITS Paroxysmal atrial fibrillation I48.0 Personal history of colonic polyps Z86.010 Hyperlipidemia E78.5 DDD (degenerative disc disease), cervical M50.30 Arthritis M19.90 Past Surgical History Past Surgical History (Updated 01/03/23 @ 12:04 by Marline Weiner) Hx of hemorrhoidectomy Z98.890 History of excision of lesion Z98.890, Z87.2 BENIGN TUMOR REMOVED Hx of colonoscopy Z98.890 History of left heart catheterization (08/30/20) Z98.890 01/19/2020, 08/30/20 History of coronary artery stent placement (01/19/20) Z95.5 PCI-MELVIN-Mid SVG-OM1 w/ 3.0 x 12 mm Synergy MR Stent 12/03/17; BCS-GFM-Mmsmjv LM and Ostial LCx w/ 3.0 x 24 mm Synergy Stent 01/30/19; ZJG-LDFV-NGH-Ostial LCx, HKS-VAB-Xyhg SVG-LAD w/ 4. x 16 mm Synergy Stent and Mid SVG-LAD w/ 4.0 x 32 mm Synergy Stent. 01/19/2020 H/O aortic valve replacement (01/26/21) Z95.2 AVR 12/03/1995; TAVR 23 mm Hinds Sapin S3 valve 04/23/18; ReDo Biobentall (25mm Konect) 01/26/2021 H/O coronary artery bypass surgery (01/26/21) Z95.1 CABG x 3: SVG-LAD, SVG-OM1, SVG-RPDA 06/23/2010; Re-Do x 3 Redo Biobentall (25mm Konect), CABG x 3: (Radial-PDA, SVG-OM1, SVG-OM2) 01/26/2021 Surgical History: - (replacement of aortiv valve) Family History Summary Family History Brother CAD (coronary artery disease) 2nd brother CABG Brother CAD (coronary artery disease) 3rd brother PCI-Stents Brother CAD (coronary artery disease) 4 brother PCI-Stents and CABG Brother CAD (coronary artery disease) 6th brother PCI-Stents Sister Hypertension CAD (coronary artery disease) CABG age 70 Other Colon cancer Social History Smoking History Smoking Status: Never smoker Alcohol Use Alcohol Usage: Yes (occas.) Occupation Occupation (List type of work in comments):: Employed Hours worked per day:: 2 Hobbies, Recreation, Social Activities Hobbies: Other (softball) Recreational Activities: I am able to engage in all my recreational activities Socia (more content not included)... [facility] No Panel InformationOrdered By: Dima Doe on 04-28-2024 [facility] Cardiac Rehab [address] [place] [address] CR - Individual Treatment Plan MR#: [id number] Acct: [id number] Name: CHLOE WILCOX Rep #:[id number] : 1950 73 From: Dima Smiley BS, RVT PCP: Dr. Gatito Leon MD DOS: 5 Diagnosis General Information Admitting Diagnosis: PCI with stent Personal Learning Style:: Audio/Visual Barriers to Learning: No Barriers Stage of change r/t lifestyle modifications:: Contemplation Gave educational material for:: Treating Heart Disease, How The Heart Works, What it means to have Heart Disease, How Coronary Artery Disease is Diagnosed, Heart Procedures, What Heart Medications Do, Risk Factors & Modifications, Living an Active Life, Nutrition, Emotions & Heart Disease, Stress Management & Relaxation and Sleep Disorders & Heart Disease Education/Goals Cardiac Rehabilitation Goals Personal Goals: Initial Assessment: Participate in home exercise program, Get back to work, or to resume activities faster, Improve diet and eating habits (eat healthier) and Control risk factors (learn risk factor modification) Scale for measuring improvement of personal goals Diagnosis & Disease Process Outcomes/Goals: Pt IDs own risk factors & lifestyle modifications by Session 10,Verbalizes symptoms of angina & response by session 3., Pt independently managesand Other Additional Outcomes/Goals: Plan/Interventions: Assist Pt to ID & engage in lifestyle modification to reduceCVD risk, Instruct on individual risk factors, Review symptoms of angina & emergency actions, Review secondary diagnosis & identify educational needs. and Other see comment 30 day Reassessments:: Not Met 30 day Reassessments:: Not Met 30 day Reassessments:: Not Met 30 day Reassessments:: Not Met Final Reassessments:: Not Met Safety Referral to Physical Therapy: No Referral to [facility] Case Management: No Fall Risk Assessed:: Yes Assistive Devices:: None Exercise - Initial Assessment Visit Date of Eval: 04/28/24 (initial eval ) Mets: Pre-: >3 METS for 30 minutes by discharge, >5 METS for 30 minutes by discharge, >7 METS for 30 minutes by discharge and Unable to meet goal due to: (see comment below) Physician Prescribed Exercise Modalities: Treadmill, Rower, Schwinn Airdyne AD-7, Acorio Stepper, Acorio Pro-II Ergometer and Acorio Lateral Twisting Operator Frequency: 3x/week for 12 weeks [36 sessions] Intensity: 60-80% of age predicted maximum heart rate reserve Duration: 30 - 45 minutes Current METSs:: 3 Target Heart Rate:: 89-111 Resting Blood Pressure: 99/59 EKG Type: NSR Outcomes & Goals Goals:: Verbalizes understanding of THR, RPE & goal METS by session 6, Documentsin home exercise log/reports 30 min aerobic 5 day/wk by DC, Demonstrates accurate pulse taking by DC and Other additional outcome/goals: see below Intervention & Plan Exercise Program Goals: Instruct on personal THR & RPE, Instruct on MET level & personal MET goal, Show patient to take own pulse /validate performance until accurate, Instruct on home exercise and Other additional plan/int Physical Activity Home Exercise Physical Activity - Home Exercise: Safe Exercise, Warm-up, Self-monitoring, Cool-Down, Home Exercise > 30 min Daily and Sitting Time <3 hours/daily Outcomes & Goals Outcomes/Goals: Demonstrates correct Warm-up/exercise Cool-Down (S3) if = 2.5 METs, Verbalizes symptoms of exercise intolerance by Session 3 (S3), Demonstratesafe equipment use (S3) & follows exercise prescrition (6) and Other: See below Intervention & Plan Plan/Intervention: Instruct warm-up & cool-down if exercising at > 2 METs, Instruct on symptoms of exercise intolerance & actions to take, Instruct & monitor on saf, Assess intial functional capacity & safety risk and Other See below Nutrition - Initial Assessment Program Goals Nutrition Program Goals Patient has diagnosis of Hyperlipidemia (ICD E78)?: Yes Visit Date of Eval: 04/28/24 (initial eval ) Cholesterol/Lipids (Other Core Measures) Determine presence & major risk factors that modify LDL goal: Hypertension or hypertensive medication, Low HDL cholesterol <40 mg/dL*, Family history of premature CHD in Male < 55 years: female <65 yearsFa and Age men > 45 years; women >/= 55 years Outcomes/Goals: Pt IDs own risk factors & lifestyle modifications by Session 10,Verbalizes symptoms of angina & response by session 3., Pt independently managesand Other Additional Outcomes/Goals: Intervention/Plan: Advocate for lipid panel cholesterol medication if applicable, Instruct on personal lipid levels & lipid goals/NCEP guidelines, Instruct on cholesterol and Other additional plan/int Referral to dietitian:: Yes Diabetes (Other Core Measures) Diabetes Type: Not Applicable Weight Mgt (Other Care) Height: 5 ft 4 in Weight:: 173 lb BMI: 29.7 Diagnosis Overweight/Obesity BMI> 30% ICD-10 E66: No Diagnosis High BMI/Morbid Obesity BMI> 35% ICD-10 Z68: No Outcomes/Goals: Pt sets, maintains & shows weight loss goal & trend during rehaband Other additional outcomes/goals Intervention/Plan: In (more content not included)... [facility] Office Visit (NNAMDI ) CHLOE WILCOX ([id number]) 1950 M Date Time Provider Department 04/23/24 8:15 AM GUADALUPE LEACH During your visit today, we recorded the following information about you: Pulse Respiration Blood pressure Weight 64/minute 18/minute 99/59 78.5 kg Height 1.626 m Guadalupe Leach, BACK PAD INSPECTOR.RETINAL ANGIOGRAPHER 04/23/2024 8:42 AM Add[facility] [place] [facility] Department of Cardiovascular Medicine SECTION OF INTERVENTIONAL CARDIOLOGY OUTPATIENT VISIT DATE April 23, 2024 OUTPATIENT VISIT TYPE ESTABLISHED FOLLOW UP Primary Dialysis Chief Equipment Technician: Kurtis Hastings MD Chief Complaint: Patient here for cardiac follow up evaluation History of Present Illness: Patient is a 73 year old male who presents for follow up visit today. Past medical history includes: CAD 2010 redo CABG (SV-LAD/OM, SV-PDA), 2019- s/p PCI to LM-Cx 01/26/2021; 3rd redo sternotomy, homograft removal, AVR/Root replacement (Konect 25), CABGx3 (Lt. Radial - PDA, SV-OM1, SV-OM2) 04/14/24 LHC > Scoring balloon angioplasty LAD, PTCA of the proximal LCx ISR, IC lithotripsy proximal-mid LAD, IC lithotripsy proximal LCx, PCI of the LMT into proximal LAD, PCI proximal LAD into mid LAD, Kissing balloon inflation of the LMT-LAD-LCx bifurcation, DCB proximal LCx, POT of the LMT. 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 Patient was admitted to [facility] main 04-08-24 to 04-15-24 s/p elective LHC which showed all of his prior surgical grafts are occluded (SVG > mid LAD, Svg > OM1, SVG > OM2 and left radial to rPDA) with severe triple vessel rosebud CAD. Patient was admitted for medial optimization and evaluation for CABG vs high risk PCI. Patient was ultimately deemed too high risk for 3rd re-do CABG. The following interventions were performed via cardiac catheterization: - Scoring balloon angioplasty of the proximal-mid LAD with a 3.0 x 20 mm Scoreflex balloon up to 18 lane , PTCA of the proximal LCx ISR with a 3.5 x 12 mm NC Emerge balloon up to 12 lane. - IC lithotripsy of the proximal-mid LAD with a 3.0 x 12 mm Shockwave C2+ balloon (60 pulses delivered). - IC lithotripsy of the proximal LCx with a 3.0 x 12 mm Shockwave C2+ balloon (60 pulses delivered). - Successful IVUS guided PCI of the LMT into proximal LAD with a 3.5 x 28 mm Xience Skypoint EES (post dilated with a 3.5 mm NC balloon up to 18 lane in the proximal LAD and a 4.5 mm NC balloon up to 16 lane in the LMT). - Successful IVUS guided PCI of the proximal LAD into mid LAD with a 3.0 x 33 mm Xience Skypoint EES (post dilated with a 3.0 mm NC balloon up to 16 lane in the mid LAD). - Kissing balloon inflation of the LMT-LAD-LCx bifurcation with a 3.5 x 20 mm Emerge balloon in the LAD and a 3.5 x 20 mm - Agent DCB in the proximal LCx up to 12 lane each for 75 seconds. - POT of the LMT with a 4.5 x 12 mm NC balloon up to 20 lane Patient was discharged home in stable condition. Today patient reports he feels good. He denies chest pain, shortness of breath, dyspnea on exertion, orthopnea, PND, palpitations, lightheadedness, syncope, claudication, leg swelling, cough, and wheezing PAST CARDIAC HISTORY: See HPI PAST MEDICAL HISTORY Diagnosis Date Aortic valve disorders Aortic valve disorders CAD (coronary artery disease) Hx of CABG Hyperlipidemia Presence of stent in coronary artery TIA (transient ischemic attack) Urinary retention PAST SURGICAL HISTORY Procedure Laterality Date COLSC FLX W/RMVL OF TUMOR POLYP LESION SNARE TQ 09/01/05 CORONARY ARTERY BYP W/VEIN AND ARTERY GRAFT 3 VEIN 2010 CABG, three grafts HEMORRHOIDECTOMY PAST SURGICAL HISTORY OF 1967 excision of chest lump PAST SURGICAL HISTORY OF 12/03/1995 Minimally invasive incision; aortic valve replacement with a PAST SURGICAL HISTORY OF 04/23/2018 TAVR Social History Tobacco Use Smoking status: Never Smokeless tobacco: Never Substance Use Topics Alcohol use: Yes Comment: occ Drug use: No FAMILY HISTORY Problem Relation Age of Onset Cancer Father Colon Cancer Father from cancer other (Myocardial infarction) Mother 70 other (Myocardial infarction) Sister 70 CABG other (Myocardial infarction) Brother 62 CABG age 55, coronary stents other (Myocardial infarction) Maternal Grandmother 92 other (Brain aneurysm) Paternal Grandmother 70 other (CABG) Brother other (coronary stents) Brother other (coronary stents) Brother carotid artery disease ALLERGIES Allergen Reactions Ragweed Pollen Itching, Other: See Comments MEDICATIONS: Current Outpatient Medicat (more content not included)... [facility] CNPN Telephone (CATHMN) BRENDENCHLOE Gil ([id number]) 1950 M Date Time Provider Department 04/23/24 KURTIS HASTINGS During your visit today, we recorded the following information about you: Trice Craft 04/23/2024 11:34 AM Signed April 23, 2024 [id number] Patient Name: Chloe Gil Brenden Contact Information: [phone] (home) [phone] (work) [phone] (cell) Reason For Call:Other Issue: Physician:Dr Hastings Pt called @ 11:30 asking that cardiac rehab orders be sent to [facility]. ; . pt also states his pharmacy told him they needs a new Rx for Repatha. Preferred pharmacy is [facility] in [place]. Erick Jones 04/23/2024 12:15 PM Signed Fax number is [phone] Office faxed cardiac rehab orders, cath report and office visit notes. Allergies As of Date: 04/23/2024 Noted Allergy Reaction RAGWEED POLLEN 06/19/1984 9 - Itching 14 - Other: See Comments Date Reviewed: 04/23/2024 Reviewed by: Guadalupe Leach APRN.RETINAL ANGIOGRAPHER - Fully Assessed Reason for Visit: Pt request [Other] Prescriptions as of 04/23/2024 - acetaminophen (TYLENOL) 325 mg tablet Take 2 tablets by mouth every 4 hours as needed for pain. - aspirin 81 mg chewable tablet Take 1 tablet by mouth once daily. - isosorbide mononitrate ER (IMDUR) 60 mg 24 hr tablet Take 1 tablet by mouth once daily. Patient should start on April 16, 2024. - nitroglycerin sublingual (NITROQUICK) 0.4 mg SL tablet Dissolve 1 tablet under the tongue every 5 minutes as needed. - evolocumab 140 mg/mL subcutaneous pen injector (REPATHA SURECLICK) Inject 140 mg subcutaneously every 2 weeks. - clopidogrel (PLAVIX) 75 mg tablet Take 1 tablet by mouth once daily. - atorvastatin (LIPITOR) 80 mg tablet Take 1 tablet by mouth daily at bedtime. - amLODIPine (NORVASC) 2.5 mg tablet Take 1 tablet by mouth once daily. - Ipratropium [place] (ATROVENT) 21 mcg (0.03 %) nasal spray - Amoxicillin 500 mg tablet Take 4 tablets by mouth as needed. Prior to dental procedures - cetirizine (ZYRTEC) 10 mg tablet Take 10 mg by mouth as needed. - albuterol HFA (VENTOLIN HFA) 90 mcg/actuation inhaler Inhale 2 Puffs as instructed every 4 hours as needed for Wheezing/Shortness of Breath. - Multivitamin capsule Take 1 capsule by mouth once daily. 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] 02/18/2018 Status post transcatheter aortic valve replacem*04/23/2018 Nonrheumatic aortic valve stenosis [I35.0] 04/23/2018 Hyperlipidemia [E78.5] 04/23/2018 Coronary artery disease involving rosebud martinez*04/23/2018 TIA (transient ischemic attack) [G45.9] 04/23/2018 Obesity, Class I, BMI 30-34.9 [E66.811] 04/24/2018 Prostate disorder [N42.9] 04/26/2018 Discharge planning issues [Z75.8] 01/25/2021 Pre-op testing [Z01.818] 01/25/2021 On mechanically assisted ventilation (HCC) [Z99*01/26/2021 01/28/2021 Postoperative pain [G89.18] 01/26/2021 Coagulopathy (HCC) [D68.9] 01/26/2021 01/27/2021 Acute blood loss anemia [D62] 01/26/2021 01/28/2021 Postoperative hypotension [I95.81] 01/26/2021 01/28/2021 Atelectasis [J98.11] 01/27/2021 Paroxysmal atrial fibrillation (HCC) [I48.0] 01/28/2021 Hypervolemia [E87.70] 01/29/2021 SUMMARY [Z76.89] 01/31/2021 Unstable angina (HCC) [I20.0] 04/08/2024 H/O coronary artery bypass surgery [Z95.1] 04/08/2024 S/P drug eluting coronary stent placement [Z95.*04/08/2024 CAD in rosebud artery [I25.10] 04/08/2024 Encounter Status:Closed by TRICE CRAFT on 04/23/24 [facility]24 ECG COMPLETE Ventricular Rate : 6 1 BPM Atrial Rate : 61 BPM P-R Interval : 160 ms QRS Duration : 90 ms Q-T Interval : 440 ms QTC Calculation(Bazett) : 442 ms Calculated P [place] : 52 degrees Calculated R [place] : 47 degrees Calculated T [place] : 88 degrees NORMAL SINUS RHYTHM NORMAL ECG Confirmed by BIANCA FORRESTER MD ([id number]) on 05/05/2024 10:37:11 AM NAME : CHLOE WILCOX PID : [id number] : 1950 Gender : Male Race : ORD : [id number] Procedure Date : Apr 23 2024 07:37:07 Edit Date : May 05 2024 10:37:11 Diagnosis: NORMAL SINUS RHYTHM NORMAL ECG Confirmed by BIANCA FORRESTER MD ([id number]) on 05/05/2024 10:37:11 AM Test Reason : Location : 314 : J14 J14 Overread By : BIANCA FORRESTER MD Edited By : BIANCA FORRESTER MD Referred By : , Acquired by : RENE WATSON Normal [facility] ASP/CLOBI RESISTANCE INTERPo n 04-15-2024 Heparin Ab Platelet aggregation Ql (PPP) Reviewed by Farideh Archer MD, PhD Normal [facility] Comment on above: Order Comment: Chet chu Type: BLOOD SPECIMENOrdering Facility: [facility] Address: [address] [place] [address] Performed By: #### A JANA, ASPCL ####[facility] LABCLIA [id number] [place] [address] [place] INTERPRETATION(ASPIRIN /CLOPIDOGREL RESISTANCE) Normal [facility] Comment on above: Order Comment: Chet sage Type: BLOOD SPECIMENOrdering Facility: [facility] Address: [address] [place] [address] Result Comment: Abno rmal - see comment below. If the patient is on aspirin therapy the degree of platelet inhibition indicates incomplete response to aspirin. This is because either the arachidonic acid aggregation is > or = 20 percent or the ADP aggregation is > or = 70 percent. These parameters were developed at the [facility] utilizing the assay and reagents performed on this patient's platelets. Chantel VILLEGAS. Scar Malloy. Izabel VILLEGAS. Ashlie TRINH. A prospective, blinded determination of the natural history of aspirin resistance among stable patients with cardiovascular disease. Journal of the [place] [employer]. 41(6):961-5, 2003. There is a decrease in ADP-induced platelet aggregation. Guidelines for optimal platelet inhibition during clopidogrel therapy have not been well-established. However, if the patient is currently receiving clopidogrel therapy, the results suggest clopidogrel response. No prior aspirin/clopidogrel results are available for comparison with the current study. The medication record indicates therapy with aspirin at 81 mg/day plus clopidogrel at 75 mg/day. Performed By: #### A JANA, ASPCL ####[facility] LABCLIA [id number] [place] [address] [place] ASPIRIN/CLOPIDOGREL RESISTAN CEon 04-15-2024 Platelet aggregation ADP induced High dose (PRP) [Rel units/Vol] 38 % Max Low 65-93 [facility] Comment on above: Order Comment: Speci men Type: BLOOD SPECIMENOrdering Facility: [facility] Address: [address] [place] [address] Performed By: #### A SPCLP, ASPCL ####[facility] LABCLIA [id number] [place] [address] [place] Platelet aggregation arachidonate induced 500 ug/mL (PRP) [Rel units/Vol] 21 % Max Low 75-100 [facility] Comment on above: Order Comment: Speci men Type: BLOOD SPECIMENOrdering Facility: [facility] Address: [address] [place] [address] Performed By: #### A SPCLP, ASPCL ####[facility] LABCLIA [id number] [place] [address] [place] Basic metabolic 2000 panelon 04-15-2024 Anion gap [Moles/Vol] 10 mmol/L Normal 8-15 [facility] Comment on above: Order Comment: Speci men Type: BLOOD SPECIMENOrdering Facility: [facility] Address: [address] [place] [address] Performed By: #### 1 9123-9, 55664-4 ####[facility] LABIA [id number] [place] [id number] [place] Calcium [Mass/Vol] 9.2 mg/dL Normal 8.5-10.2 [facility] Comment on above: Order Comment: Speci men Type: BLOOD SPECIMENOrdering Facility: [facility] Address: [address] [place] [address] Performed By: #### 1 9123-9, 67572-7 ####[facility] LABCLIA [id number] [place] [id number] [place] Chloride [Moles/Vol] 101 mmol/L Normal 98-107 [facility] Comment on above: Order Comment: Speci men Type: BLOOD SPECIMENOrdering Facility: [facility] Address: [address] [place], [place] [address] Performed By: #### 1 9123-9, 42218-3 ####[facility] LABCLIA [id number] [place] [id number] [place] CO2 [Moles/Vol] 26 mmol/L Normal 22-30 [facility] Comment on above: Order Comment: Speci men Type: BLOOD SPECIMENOrdering Facility: [facility] Address: [address] [place] [address] Performed By: #### 1 9123-9, 71105-3 ####[facility] LABIA [id number] [place] [address] [place] Creatinine [Mass/Vol] 1.06 mg/dL Normal 0.73-1.22 [facility] Comment on above: Order Comment: Speci men Type: BLOOD SPECIMENOrdering Facility: [facility] Address: [address] [place] [address] Performed By: #### 1 9123-9, 16874-9 ####[facility] LABIA [id number] [place] [address] [place] Creatinine and Glomerular filtration rate.predicted panel (S/P/Bld) 75 mL/min/1.73m??? Normal >=60 [facility] Comment on above: Order Comment: Speci men Type: BLOOD SPECIMENOrdering Facility: [facility] Address: [address] [place] [address] Result Comment: Eladia mated Glomerular Filtration Rate (eGFR) is calculated using the 2020 CKD-EPI creatinine equation. This equation utilizes serum creatinine, sex, and age as parameters. The creatinine assay has traceable calibration to isotope dilution-mass spectrometry. Refer to KDIGO guidelines for clinical interpretation. In patients with unstable renal function, e.g. those with acute kidney injury, the eGFR may not accurately reflect actual GFR. Performed By: #### 1 9123-9, 78404-0 ####[facility] LABCLIA [id number] [address] [address] [place] Glucose [Mass/Vol] 183 mg/dL High 74-99 [facility] Comment on above: Order Comment: Speci men Type: BLOOD SPECIMENOrdering Facility: [facility] Address: [address] [place] [address] Result Comment: The [place] [employer] Association (ADA) provides guidance for cutoff values for fasting glucose and random glucose. The ADA defines fasting as no caloric intake for at least 8 hours. Fasting plasma glucose results between 100 to 125 mg/dL indicate increased risk for diabetes (prediabetes). Fasting plasma glucose results greater than or equal to 126 mg/dL meet the criteria for diagnosis of diabetes. In the absence of unequivocal hyperglycemia, results should be confirmed by repeat testing. In a patient with classic symptoms of hyperglycemia or hyperglycemic crisis, random plasma glucose results greater than or equal to 200 mg/dL meet the criteria for diagnosis of diabetes. Reference: Standards of Medical Care in Diabetes 2016, [place] [employer]. Diabetes Care. 2016.39(Suppl 1). Performed By: #### 1 9123-9, 95477-4 ####[facility] LABCLIA [id number] [place] [address] [place] Potassium [Moles/Vol] 3.9 mmol/L Normal 3.7-5.1 [facility] Comment on above: Order Comment: Speci men Type: BLOOD SPECIMENOrdering Facility: [facility] Address: [address] [place] [address] Performed By: #### 1 9123-9, 01495-7 ####[facility] LABCLIA [id number] [place] [address] [place] Sodium [Moles/Vol] 137 mmol/L Normal 136-144 [facility] Comment on above: Order Comment: Speci men Type: BLOOD SPECIMENOrdering Facility: [facility] Address: [address] [place], [place] [address] Performed By: #### 1 9123-9, 31101-1 ####[facility] LABCLIA [id number] [address] [place] Urea nitrogen [Mass/Vol] 21 mg/dL Normal 9-24 [facility] Comment on above: Order Comment: Speci men Type: BLOOD SPECIMENOrdering Facility: [facility] Address: [address] [place] [address] Performed By: #### 1 9123-9, 95739-2 ####[facility] LABCLIA [id number] [address] [place] CBC panel Auto (Bld)on 04-15 Erythrocyte distribution width (RBC) [Ratio] 13.0 % Normal 11.5-15.0 [facility] Comment on above: Order Comment: Speci men Type: BLOOD SPECIMENOrdering Facility: [facility] Address: [address] [place] [address] Performed By: #### 5 8410-2 ####[facility] LABIA [id number] [address] [place] Hematocrit (Bld) [Volume fraction] 39.2 % Normal 39.0-51.0 [facility] Comment on above: Order Comment: Speci men Type: BLOOD SPECIMENOrdering Facility: [facility] Address: [address] [place] [address] Performed By: #### 5 8410-2 ####[facility] LABCLIA [id number] [address] [place] Hemoglobin (Bld) [Mass/Vol] 13.4 g/dL Normal 13.0-17.0 [facility] Comment on above: Order Comment: Speci men Type: BLOOD SPECIMENOrdering Facility: [facility] Address: [address] [place] [address] Performed By: #### 5 8410-2 ####[facility] LABCLIA [id number] [place] [id number] [place] MCH (RBC) [Entitic mass] 30.2 pg Normal 26.0-34.0 [facility] Comment on above: Order Comment: Speci men Type: BLOOD SPECIMENOrdering Facility: [facility] Address: [address] [place] [address] Performed By: #### 5 8410-2 ####[facility] LABIA [id number] [place] [address] [place] MCHC (RBC) [Mass/Vol] 34.2 g/dL Normal 30.5-36.0 [facility] Comment on above: Order Comment: Speci men Type: BLOOD SPECIMENOrdering Facility: [facility] Address: [address] [place] [address] Performed By: #### 5 8410-2 ####[facility] LABIA [id number] [place] [address] [place] MCV (RBC) [Entitic vol] 88.5 fL Normal 80.0-100.0 [facility] Comment on above: Order Comment: Speci men Type: BLOOD SPECIMENOrdering Facility: [facility] Address: [address] [place] [address] Performed By: #### 5 8410-2 ####[facility] LABIA [id number] [place] [address] [place] Nucleated RBC (Bld) [#/Vol] 10*3/uL Normal <0.01 [facility] Comment on above: Order Comment: Speci men Type: BLOOD SPECIMENOrdering Facility: [facility] Address: [address] [place] [address] Performed By: #### 5 8410-2 ####[facility] LABIA [id number] [place] [address] [place] Platelet mean volume (Bld) [Entitic vol] 9.7 fL Normal 9.0-12.7 [facility] Comment on above: Order Comment: Speci men Type: BLOOD SPECIMENOrdering Facility: [facility] Address: [address] [place] [address] Performed By: #### 5 8410-2 ####[facility] LABCLIA [id number] [place] [id number] [place] Platelets (Bld) [#/Vol] 211 10*3/uL Normal 150-400 [facility] Comment on above: Order Comment: Speci men Type: BLOOD SPECIMENOrdering Facility: [facility] Address: [address] [place] [address] Performed By: #### 5 8410-2 ####[facility] LABIA [id number] [place] [address] [place] RBC (Bld) [#/Vol] 4.43 10*6/uL Normal 4.20-6.00 [facility] Comment on above: Order Comment: Speci men Type: BLOOD SPECIMENOrdering Facility: [facility] Address: [address] [place] [address] Performed By: #### 5 8410-2 ####[facility] LABIA [id number] [place] [id number] [place] WBC (Bld) [#/Vol] 6.50 10*3/uL Normal 3.70-11.00 [facility] Comment on above: Order Comment: Speci men Type: BLOOD SPECIMENOrdering Facility: [facility] Address: [address] [place] [address] Performed By: #### 5 8410-2 ####[facility] LABIA [id number] [place] [id number] [place] Magnesium SerPl-mCncon 04-15 Magnesium [Mass/Vol] 2.2 mg/dL Normal 1.7-2.3 [facility] Comment on above: Order Comment: Speci men Type: BLOOD SPECIMENOrdering Facility: [facility] Address: [address] [place] [address] Performed By: #### 1 9123-9, 39051-1 ####[facility] LABCLIA [id number] [address] [address] [place] Basic metabolic 2000 panelon 04-14-2024 Anion gap [Moles/Vol] 11 mmol/L Normal 8-15 [facility] Comment on above: Order Comment: Speci men Type: BLOOD SPECIMENOrdering Facility: [facility] Address: [address] [place] [address] Performed By: #### 1 9123-9, 31457-9 ####[facility] LABCLIA [id number] [place] [address] [place] Calcium [Mass/Vol] 9.3 mg/dL Normal 8.5-10.2 [facility] Comment on above: Order Comment: Speci men Type: BLOOD SPECIMENOrdering Facility: [facility] Address: [address] [place] [address] Performed By: #### 1 9123-9, 72278-1 ####[facility] LABCLIA [id number] [place] [id number] [place] Chloride [Moles/Vol] 104 mmol/L Normal 98-107 [facility] Comment on above: Order Comment: Speci men Type: BLOOD SPECIMENOrdering Facility: [facility] Address: [address] [place] [address] Performed By: #### 1 9123-9, 27043-8 ####[facility] LABCLIA [id number] [facility] [place] [id number] [place] CO2 [Moles/Vol] 23 mmol/L Normal 22-30 [facility] Comment on above: Order Comment: Speci men Type: BLOOD SPECIMENOrdering Facility: [facility] Address: [address] [place] [address] Performed By: #### 1 9123-9, 40247-4 ####[facility] LABCLIA [id number] [place] [id number] [place] Creatinine [Mass/Vol] 1.08 mg/dL Normal 0.73-1.22 [facility] Comment on above: Order Comment: Chet sage Type: BLOOD SPECIMENOrdering Facility: [facility] Address: [address] [place] [address] Performed By: #### 1 9123-9, 22829-3 ####[facility] LABCLIA [id number] [address] [facility] Creatinine and Glomerular filtration rate.predicted panel (S/P/Bld) 73 mL/min/1.73m??? Normal >=60 [facility] Comment on above: Order Comment: Chet sage Type: BLOOD SPECIMENOrdering Facility: [facility] Address: [address] [place] [address] Result Comment: Eladia mated Glomerular Filtration Rate (eGFR) is calculated using the 2020 CKD-EPI creatinine equation. This equation utilizes serum creatinine, sex, and age as parameters. The creatinine assay has traceable calibration to isotope dilution-mass spectrometry. Refer to KDIGO guidelines for clinical interpretation. In patients with unstable renal function, e.g. those with acute kidney injury, the eGFR may not accurately reflect actual GFR. Performed By: #### 1 9123-9, 31521-5 ####[facility] LABCLIA [id number] [place] [address] [place] Glucose [Mass/Vol] 88 mg/dL Normal 74-99 [facility] Comment on above: Order Comment: Chet sage Type: BLOOD SPECIMENOrdering Facility: [facility] Address: [address] [place] [address] Result Comment: The [place] Diabetes Association (ADA) provides guidance for cutoff values for fasting glucose and random glucose. The ADA defines fasting as no caloric intake for at least 8 hours. Fasting plasma glucose results between 100 to 125 mg/dL indicate increased risk for diabetes (prediabetes). Fasting plasma glucose results greater than or equal to 126 mg/dL meet the criteria for diagnosis of diabetes. In the absence of unequivocal hyperglycemia, results should be confirmed by repeat testing. In a patient with classic symptoms of hyperglycemia or hyperglycemic crisis, random plasma glucose results greater than or equal to 200 mg/dL meet the criteria for diagnosis of diabetes. Reference: Standards of Medical Care in Diabetes 2016, [place] [employer]. Diabetes Care. 2016.39(Suppl 1). Performed By: #### 1 9123-9, 72326-4 ####[facility] LABCLIA [id number] [address] [address] [place] Potassium [Moles/Vol] 4.5 mmol/L Normal 3.7-5.1 [facility] Comment on above: Order Comment: Speci men Type: BLOOD SPECIMENOrdering Facility: [facility] Address: [address] [place] [address] Performed By: #### 1 9123-9, ####[facility] LABCLIA [id number] [place] [id number] [place] Sodium [Moles/Vol] 138 mmol/L Normal 136-144 [facility] Comment on above: Order Comment: Speci men Type: BLOOD SPECIMENOrdering Facility: [facility] Address: [address] [place], [place] [address] Performed By: #### 1 [address]12[address], ####[facility] LABCLIA [id number] [place] [id number] [place] Urea nitrogen [Mass/Vol] 21 mg/dL Normal 9-24 [facility] Comment on above: Order Comment: Speci men Type: BLOOD SPECIMENOrdering Facility: [facility] Address: [address] [place], [place] [address] Performed By: #### 1 9123-9, ####[facility] LABCLIA [id number] [address] [address] [place] CARD CATH INTERVENTon 2024 CARD CATH INTERVENT Site Id: [id number] Lab #: [id number] [employer]aging Supervisor 10 Study Date: 04/14/2024 Start Time: 04/14/2024 2:38:53 PM End Time: 04/14/2024 5:31:17 PM Physician Name Ron Pennington M.D., Evan M.D. Shah, Rohan M.D. Nursing/Tech Tori Castaneda R.N., A R.N. Wilhelm, Patrick R.N. Djureinovic, B. R.N. Shipe, M. R.N. + + PATIENT INFORMATION + + Name: MR. CHLOE WILCOX : 1950 Age: 73 years Gender: M Height: 64 in / 163 cm Weight: 169.53 lb / 76.90 kg BMI: 28.94 kg/m BSA: 1.83 m Allergies: YES + --------+ CLINICAL HISTORY/INDICATIONS + --------+ AUC: Left main stenosis with CCS anginal class of I or II. AUC score = 9. Exam Status: Elective Clinical History: Mr. 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 + + PCI SUMMARY + + Procedures Performed: - IABP placement (removed post procedure) - Scoring balloon angioplasty of the proximal-mid LAD with a 3.0 x 20 mm Scoreflex balloon up to 18 lane - PTCA of the proximal LCx ISR with a 3.5 x 12 mm NC Emerge balloon up to 12 lane. - IC lithotripsy of the proximal-mid LAD with a 3.0 x 12 mm Shockwave C2+ balloon (60 pulses delivered). - IC lithotripsy of the proximal LCx with a 3.0 x 12 mm Shockwave C2+ balloon (60 pulses delivered). - Successful IVUS guided PCI of the LMT into proximal LAD with a 3.5 x 28 mm Xience Skypoint EES (post dilated with a 3.5 mm NC balloon up to 18 lane in the proximal LAD and a 4.5 mm NC balloon up to 16 lane in the LMT). - Successful IVUS guided PCI of the proximal LAD into mid LAD with a 3.0 x 33 mm Xience Skypoint EES (post dilated with a 3.0 mm NC balloon up to 16 lane in the mid LAD). - Kissing balloon inflation of the LMT-LAD-LCx bifurcation with a 3.5 x 20 mm Emerge balloon in the LAD and a 3.5 x 20 mm Agent DCB in the proximal LCx up to 12 lane each for 75 seconds. - POT of the LMT with a 4.5 x 12 mm NC balloon up to 20 lane. Procedural Details: + + +---- + Entry Site(SR) Sheath Size(SR) Hemostasis Method(SR) + + +---- + Femoral artery right 7F Long Perclose + + +---- + Femoral artery left 8F Short Perclose + + +---- + Anticoagulation: Heparin Procedure Narrative: Lesion 1: LAD Proximal Guide 1: 7FR EBU 3.5. Lesion 2: LAD MID Guide 2: 7FR EBU 3.5. Lesion 3: LMT-MID Guide 3: 7FR EBU 3.5. Procedure Summary: Access: 7 Fr right common femoral artery , 8 Fr left common femoral artery (for IABP) Guide Catheter(s): 7 Fr EBU 3.5 (with side holes) Guidewire(s): Marcelo blue Other Equipment: 6 Fr Guideliner, 6 Fr Opticross HD IVUS Anticoagulation: UFH Additional Procedural Medications: Procedural sedation, nitrgolycerin PROCEDURAL NARRATIVE: We obtained R FOREST EXAMINER access and a 7 Fr long sheath was placed in the artery. We then obtained left FOREST EXAMINER access and after preclosure in the usual fashion, an 8 [place] short sheath was placed in the left FOREST EXAMINER. Diagnostic angiography of the SVG PDA graft was obtained using MPA 2 catheter. Following this, through the 8 [place] sheath, an IABP was advanced to the descending aorta and started with one-to-one augmentation. We then engaged the LMT with the 7 Fr EBU 3.5 guide catheter. After administering heparin to a goal ACT of >250s, we advanced a marcelo blue coronary wire to the distal OM1 followed by a marcelo blue wire to the distal LAD. We attempted to deliver a 2.5 x 15 mm semicompliant balloon across the proximal LAD although had difficulty traversing the stent struts of the LMT LCx stent. We were able to pass a 1.5 x 15 mm sapphire balloon and dilated the ostium of the LAD with this up to 16 lane. Following this, we were able to pass a 2.5 x 15 mm Emerge balloon and dilated the ostium/proximal LAD with this up to 14 lane. We then performed IVUS imaging of the LAD which showed severe diffuse disease in the proximal mid vessel with severe calcification/calcifi ed nodules. IVUS of the LCx was also performed which showed severe in-stent re-stenosis in the ostial/proximal LCx. Given the IVUS findings, we further dilated the proximal LCx with a 3.5 x 12 mm NC Emerge balloon up to 12 lane followed by scoring balloon angioplasty of the LAD with a 3.0 x 20 mm score flex balloon with multiple inflations up to 8 lane. Given the significant calcium burden, we proceeded to perform IC lithotripsy of the proximal mid LAD and proximal LCx with a 3.0 x 12 mm shockwave C2 plus balloon delivering 60 pulses in each vessel. We (more content not included)... Normal [facility] CBC panel Auto (Bld)on 04-14 Erythrocyte distribution width (RBC) [Ratio] 12.9 % Normal 11.5-15.0 [facility] Comment on above: Order Comment: Speci men Type: BLOOD SPECIMENOrdering Facility: [facility] Address: [address] [place] [address] Performed By: #### 5 8410-2 ####[facility] LABIA [id number] [place] [address] [place] Hematocrit (Bld) [Volume fraction] 39.4 % Normal 39.0-51.0 [facility] Comment on above: Order Comment: Speci men Type: BLOOD SPECIMENOrdering Facility: [facility] Address: [address] [place] [address] Performed By: #### 5 8410-2 ####[facility] LABIA [id number] [place] [address] [place] Hemoglobin (Bld) [Mass/Vol] 13.2 g/dL Normal 13.0-17.0 [facility] Comment on above: Order Comment: Speci men Type: BLOOD SPECIMENOrdering Facility: [facility] Address: [address] [place] [address] Performed By: #### 5 8410-2 ####[facility] LABCLIA [id number] [place] [address] [place] MCH (RBC) [Entitic mass] 29.9 pg Normal 26.0-34.0 [facility] Comment on above: Order Comment: Speci men Type: BLOOD SPECIMENOrdering Facility: [facility] Address: [address] [place] [address] Performed By: #### 5 8410-2 ####[facility] LABCLIA [id number] [place] [address] [place] MCHC (RBC) [Mass/Vol] 33.5 g/dL Normal 30.5-36.0 [facility] Comment on above: Order Comment: Speci men Type: BLOOD SPECIMENOrdering Facility: [facility] Address: [address] [place] [address] Performed By: #### 5 8410-2 ####[facility] LABCLIA [id number] [place] [address] [place] MCV (RBC) [Entitic vol] 89.3 fL Normal 80.0-100.0 [facility] Comment on above: Order Comment: Speci men Type: BLOOD SPECIMENOrdering Facility: [facility] Address: [address] [place] [address] Performed By: #### 5 8410-2 ####[facility] LABCLIA [id number] [place] [address] [place] Nucleated RBC (Bld) [#/Vol] 10*3/uL Normal <0.01 [facility] Comment on above: Order Comment: Speci men Type: BLOOD SPECIMENOrdering Facility: [facility] Address: [address] [place] [address] Performed By: #### 5 8410-2 ####[facility] LABCLIA [id number] [place] [address] [place] Platelet mean volume (Bld) [Entitic vol] 9.7 fL Normal 9.0-12.7 [facility] Comment on above: Order Comment: Speci men Type: BLOOD SPECIMENOrdering Facility: [facility] Address: [address] [place] [address] Performed By: #### 5 8410-2 ####[facility] LABCLIA [id number] [place] [address] [place] Platelets (Bld) [#/Vol] 190 10*3/uL Normal 150-400 [facility] Comment on above: Order Comment: Speci men Type: BLOOD SPECIMENOrdering Facility: [facility] Address: [address] [place] [address] Performed By: #### 5 8410-2 ####[facility] LABCLIA [id number] [place] [id number] [place] RBC (Bld) [#/Vol] 4.41 10*6/uL Normal 4.20-6.00 [facility] Comment on above: Order Comment: Speci men Type: BLOOD SPECIMENOrdering Facility: [facility] Address: [address] [place] [address] Performed By: #### 5 8410-2 ####[facility] LABIA [id number] [place] [address] [place] WBC (Bld) [#/Vol] 5.30 10*3/uL Normal 3.70-11.00 [facility] Comment on above: Order Comment: Speci men Type: BLOOD SPECIMENOrdering Facility: [facility] Address: [address] [place] [address] Performed By: #### 5 8410-2 ####[facility] LABIA [id number] [place] [id number] [place] Magnesium SerPl-mCncon 04-14 Magnesium [Mass/Vol] 2.1 mg/dL Normal 1.7-2.3 [facility] Comment on above: Order Comment: Speci men Type: BLOOD SPECIMENOrdering Facility: [facility] Address: [address] [place] [address] Performed By: #### 1 9123-9, 02827-1 ####[facility] LABIA [id number] [place] [id number] [place] PT EDon 04-14-2024 PT ED HNO ID: [id number] Author: RODY ARELLANO RN Service: Nursing Author Type: Registered Nurse Type: Patient Education Filed: 04/14/2024 13:14 Note Text: THE FOLLOWING WAS EVALUATED Motivation To Learn: Interested Family/Significant Other Support: None - Unavailable/disintere sted Cognitive Ability: Alert and oriented Patient Learns Best By: Individual Instruction The Following Influencing Factors Were Barriers To This Education Session: None The Following Physical Limitations Were Barriers To This Education Session: None Instruction Provided To: Patient Procedure: PCI / STENT Pre procedure information reviewed: Patient ID verified Allergies verified Procedure verified Physician verified Explanation of procedure Procedure Sedation Pre procedure medication instructions for anticoagulants Diabetic Medications Radiology Procedures Diet Restrictions Travel instructions/restrict ions Scheduling information Overnight stay procedure Check out time Family waiting area Physician contact with family after procedure Post Procedure Expectations reviewed: Inpatient hospital stay Medication instructions for anticoagulants Contact number for information and questions Patient Evaluation: Verbalizes understanding Follow Up Plan: Follow up as directed by . Supplemental Material Given: None Instructed By Rody Arellano RN. In Department of UDE479. Normal [facility] Basic metabolic 2000 panelon 04-13-2024 Anion gap [Moles/Vol] 9 mmol/L Normal 8-15 [facility] Comment on above: Order Comment: Speci men Type: BLOOD SPECIMENOrdering Facility: [facility] Address: [address] [place] [address] Performed By: #### 1 9123-9, 08329-9 ####[facility] LABCLIA [id number] [place] [address] [place] Calcium [Mass/Vol] 9.2 mg/dL Normal 8.5-10.2 [facility] Comment on above: Order Comment: Speci men Type: BLOOD SPECIMENOrdering Facility: [facility] Address: [address] [place] [address] Performed By: #### 1 9123-9, 39452-0 ####[facility] LABCLIA [id number] [place] [address] [place] Chloride [Moles/Vol] 104 mmol/L Normal 98-107 [facility] Comment on above: Order Comment: Speci men Type: BLOOD SPECIMENOrdering Facility: [facility] Address: [address] [place] [address] Performed By: #### 1 9123-9, 61016-3 ####[facility] LABCLIA [id number] [place] [id number] [place] CO2 [Moles/Vol] 27 mmol/L Normal 22-30 [facility] Comment on above: Order Comment: Speci men Type: BLOOD SPECIMENOrdering Facility: [facility] Address: [address] [place] [address] Performed By: #### 1 9123-9, 68405-2 ####[facility] LABIA [id number] [place] [address] [place] Creatinine [Mass/Vol] 1.04 mg/dL Normal 0.73-1.22 [facility] Comment on above: Order Comment: Speci men Type: BLOOD SPECIMENOrdering Facility: [facility] Address: [address] [place] [address] Performed By: #### 1 9123-9, 10129-2 ####[facility] LABIA [id number] [address] [place] [facility] Creatinine and Glomerular filtration rate.predicted panel (S/P/Bld) 76 mL/min/1.73m??? Normal >=60 [facility] Comment on above: Order Comment: Speci men Type: BLOOD SPECIMENOrdering Facility: [facility] Address: [address] [place] [address] Result Comment: Eladia mated Glomerular Filtration Rate (eGFR) is calculated using the 2020 CKD-EPI creatinine equation. This equation utilizes serum creatinine, sex, and age as parameters. The creatinine assay has traceable calibration to isotope dilution-mass spectrometry. Refer to KDIGO guidelines for clinical interpretation. In patients with unstable renal function, e.g. those with acute kidney injury, the eGFR may not accurately reflect actual GFR. Performed By: #### 1 9123-9, 23902-1 ####[facility] LABIA [id number] [place] [address] [place] Glucose [Mass/Vol] 91 mg/dL Normal 74-99 [facility] Comment on above: Order Comment: Speci men Type: BLOOD SPECIMENOrdering Facility: [facility] Address: [address] [place] [address] Result Comment: The [place] Diabetes [employer] (ADA) provides guidance for cutoff values for fasting glucose and random glucose. The ADA defines fasting as no caloric intake for at least 8 hours. Fasting plasma glucose results between 100 to 125 mg/dL indicate increased risk for diabetes (prediabetes). Fasting plasma glucose results greater than or equal to 126 mg/dL meet the criteria for diagnosis of diabetes. In the absence of unequivocal hyperglycemia, results should be confirmed by repeat testing. In a patient with classic symptoms of hyperglycemia or hyperglycemic crisis, random plasma glucose results greater than or equal to 200 mg/dL meet the criteria for diagnosis of diabetes. Reference: Standards of Medical Care in Diabetes 2016, [place] [employer]. Diabetes Care. 2016.39(Suppl 1). Performed By: #### 1 9123-9, 27347-4 ####[facility] LABCLIA [id number] [place] [address] [place] Potassium [Moles/Vol] 4.3 mmol/L Normal 3.7-5.1 [facility] Comment on above: Order Comment: Speci men Type: BLOOD SPECIMENOrdering Facility: [facility] Address: [address] [place] [address] Performed By: #### 1 9123-9, 37810-8 ####[facility] LABCLIA [id number] [place] [address] [place] Sodium [Moles/Vol] 140 mmol/L Normal 136-144 [facility] Comment on above: Order Comment: Speci men Type: BLOOD SPECIMENOrdering Facility: [facility] Address: [address] [place] [address] Performed By: #### 1 9123-9, 14216-6 ####[facility] LABCLIA [id number] [place] [address] [place] Urea nitrogen [Mass/Vol] 17 mg/dL Normal 9-24 [facility] Comment on above: Order Comment: Speci men Type: BLOOD SPECIMENOrdering Facility: [facility] Address: [address] [place] [address] Performed By: #### 1 9123-9, 22936-5 ####[facility] LABCLIA [id number] [place] [address] [place] CBC panel Auto (Bld)on 04-13 Erythrocyte distribution width (RBC) [Ratio] 12.8 % Normal 11.5-15.0 [facility] Comment on above: Order Comment: Speci men Type: BLOOD SPECIMENOrdering Facility: [facility] Address: [address] [place] [address] Performed By: #### 5 8410-2 ####[facility] LABCLIA [id number] [place] [address] [place] Hematocrit (Bld) [Volume fraction] 38.3 % Low 39.0-51.0 [facility] Comment on above: Order Comment: Speci men Type: BLOOD SPECIMENOrdering Facility: [facility] Address: [address] [place] [address] Performed By: #### 5 8410-2 ####[facility] LABCLIA [id number] [address] [place] Hemoglobin (Bld) [Mass/Vol] 13.2 g/dL Normal 13.0-17.0 [facility] Comment on above: Order Comment: Speci men Type: BLOOD SPECIMENOrdering Facility: [facility] Address: [address] [place] [address] Performed By: #### 5 8410-2 ####[facility] LABCLIA [id number] [place] [address] [place] MCH (RBC) [Entitic mass] 30.0 pg Normal 26.0-34.0 [facility] Comment on above: Order Comment: Speci men Type: BLOOD SPECIMENOrdering Facility: [facility] Address: [address] [place] [address] Performed By: #### 5 8410-2 ####[facility] LABCLIA [id number] [place] [address] [place] MCHC (RBC) [Mass/Vol] 34.5 g/dL Normal 30.5-36.0 [facility] Comment on above: Order Comment: Speci men Type: BLOOD SPECIMENOrdering Facility: [facility] Address: [address] [place] [address] Performed By: #### 5 8410-2 ####[facility] LABIA [id number] [place] [address] [place] MCV (RBC) [Entitic vol] 87.0 fL Normal 80.0-100.0 [facility] Comment on above: Order Comment: Speci men Type: BLOOD SPECIMENOrdering Facility: [facility] Address: [address] [place] [address] Performed By: #### 5 8410-2 ####[facility] LABIA [id number] [place] [address] [place] Nucleated RBC (Bld) [#/Vol] 10*3/uL Normal <0.01 [facility] Comment on above: Order Comment: Speci men Type: BLOOD SPECIMENOrdering Facility: [facility] Address: [address] [place] [address] Performed By: #### 5 8410-2 ####[facility] LABIA [id number] [place] [address] [place] Platelet mean volume (Bld) [Entitic vol] 9.6 fL Normal 9.0-12.7 [facility] Comment on above: Order Comment: Speci men Type: BLOOD SPECIMENOrdering Facility: [facility] Address: [address] [place] [address] Performed By: #### 5 8410-2 ####[facility] LABCLIA [id number] [place] [address] [place] Platelets (Bld) [#/Vol] 194 10*3/uL Normal 150-400 [facility] Comment on above: Order Comment: Speci men Type: BLOOD SPECIMENOrdering Facility: [facility] Address: [address] [place] [address] Performed By: #### 5 8410-2 ####[facility] LABIA [id number] [place] [address] [place] RBC (Bld) [#/Vol] 4.40 10*6/uL Normal 4.20-6.00 [facility] Comment on above: Order Comment: Speci men Type: BLOOD SPECIMENOrdering Facility: [facility] Address: [address] [place] [address] Performed By: #### 5 8410-2 ####[facility] LABIA [id number] [place] [address] [place] WBC (Bld) [#/Vol] 4.81 10*3/uL Normal 3.70-11.00 [facility] Comment on above: Order Comment: Speci men Type: BLOOD SPECIMENOrdering Facility: [facility] Address: [address] [place] [address] Performed By: #### 5 8410-2 ####[facility] LABIA [id number] [place] [id number] [place] Magnesium SerPl-mCncon 04-13 Magnesium [Mass/Vol] 2.1 mg/dL Normal 1.7-2.3 [facility] Comment on above: Order Comment: Speci men Type: BLOOD SPECIMENOrdering Facility: [facility] Address: [address] [place] [address] Performed By: #### 1 9123-9, 48913-0 ####[facility] LABCLIA [id number] [place] [address] [place] Urinalysis complete panel (U )on 04-13-2024 Bacteria LM.HPF (Urine sed) [#/Area] Negative Normal Negative [facility] Comment on above: Order Comment: Speci men Type: URINE SPECIMENOrdering Facility: [facility] Address: [address] [place] [address] Performed By: #### 2 4356-8 ####[facility] LABIA [id number] [place] [address] [place] Bilirubin Ql (U) Negative Normal Negative [facility] Comment on above: Order Comment: Speci men Type: URINE SPECIMENOrdering Facility: [facility] Address: [address] [place] [address] Performed By: #### 2 4356-8 ####[facility] LABIA [id number] [place] [address] [place] Clarity (Unsp spec) Clear Normal Clear [facility] Comment on above: Order Comment: Speci men Type: URINE SPECIMENOrdering Facility: [facility] Address: [address] [place] [address] Performed By: #### 2 4356-8 ####[facility] LABIA [id number] [place] [address] [place] Color (U) Yellow Normal Yellow [facility] Comment on above: Order Comment: Speci men Type: URINE SPECIMENOrdering Facility: [facility] Address: [address] [place] [address] Performed By: #### 2 4356-8 ####[facility] LABIA [id number] [place] [address] [place] Epithelial cells LM.HPF (Urine sed) [#/Area] None Seen Normal [facility] Comment on above: Order Comment: Speci men Type: URINE SPECIMENOrdering Facility: [facility] Address: [address] [place] [address] Performed By: #### 2 4356-8 ####[facility] LABCLIA [id number] [place] [address] [place] Glucose Test strip (U) [Mass/Vol] Negative Normal Negative [facility] Comment on above: Order Comment: Speci men Type: URINE SPECIMENOrdering Facility: [facility] Address: [address] [place] [address] Performed By: #### 2 4356-8 ####[facility] LABCLIA [id number] [place] [address] [place] Hemoglobin Ql (U) Negative Normal Negative [facility] Comment on above: Order Comment: Speci men Type: URINE SPECIMENOrdering Facility: [facility] Address: [address] [place] [address] Performed By: #### 2 4356-8 ####[facility] LABCLIA [id number] [place] [address] [place] Hyaline casts (Urine sed) [#/Area] 0 /[LPF] Normal 0 /LPF [facility] Comment on above: Order Comment: Speci men Type: URINE SPECIMENOrdering Facility: [facility] Address: [address] [place] [address] Performed By: #### 2 4356-8 ####[facility] LABCLIA [id number] [place] [address] [place] Ketones Ql (U) Negative Normal Negative [facility] Comment on above: Order Comment: Speci men Type: URINE SPECIMENOrdering Facility: [facility] Address: [address] [place] [address] Performed By: #### 2 4356-8 ####[facility] LABCLIA [id number] [place] [address] [place] Leukocyte esterase Test strip Ql (U) Negative Normal Negative [facility] Comment on above: Order Comment: Speci men Type: URINE SPECIMENOrdering Facility: [facility] Address: [address] [place] [address] Performed By: #### 2 4356-8 ####[facility] LABCLIA [id number] [place] [address] [place] Nitrite Ql (U) Negative Normal Negative [facility] Comment on above: Order Comment: Speci men Type: URINE SPECIMENOrdering Facility: [facility] Address: [address] [place] [address] Performed By: #### 2 4356-8 ####[facility] LABCLIA [id number] [place] [address] [place] pH (U) 7.5 [pH] Normal <8.5 [facility] Comment on above: Order Comment: Speci men Type: URINE SPECIMENOrdering Facility: [facility] Address: [address] [place] [address] Performed By: #### 2 4356-8 ####[facility] LABCLIA [id number] [place] [address] [place] Protein (U) [Mass/Vol] Negative Normal Negative [facility] Comment on above: Order Comment: Speci men Type: URINE SPECIMENOrdering Facility: [facility] Address: [address] [place] [address] Performed By: #### 2 4356-8 ####[facility] LABCLIA [id number] [place] [address] [place] RBC LM.HPF (Urine sed) [#/Area] 0-2 /HPF Normal 0-2 /HPF [facility] Comment on above: Order Comment: Speci men Type: URINE SPECIMENOrdering Facility: [facility] Address: [address] [place] [address] Performed By: #### 2 4356-8 ####[facility] LABCLIA [id number] [place] [address] [place] Specific gravity (U) [Rel density] 1.005 Normal 1.005-1.030 [facility] Comment on above: Order Comment: Speci men Type: URINE SPECIMENOrdering Facility: [facility] Address: [address] [place] [address] Performed By: #### 2 4356-8 ####[facility] LABCLIA [id number] [place] [address] [place] Urobilinogen Ql (U) 0.2 EU/dL Normal 0.2-1.0 EU/dL [facility] Comment on above: Order Comment: Speci men Type: URINE SPECIMENOrdering Facility: [facility] Address: [address] [place] [address] Performed By: #### 2 4356-8 ####[facility] LABCLIA [id number] [place] [address] [place] WBC LM.HPF (Urine sed) [#/Area] 0-5 /HPF Normal 0-5 /HPF [facility] Comment on above: Order Comment: Speci men Type: URINE SPECIMENOrdering Facility: [facility] Address: [address] [place] [address] Performed By: #### 2 4356-8 ####[facility] LABCLIA [id number] [place] [address] [place] Basic metabolic 2000 panelon 04-12-2024 Anion gap [Moles/Vol] 10 mmol/L Normal 8-15 [facility] Comment on above: Order Comment: Speci men Type: BLOOD SPECIMENOrdering Facility: [facility] Address: [address] [place] [address] Performed By: #### 2 4321-2, 61379-9 ####[facility] LABCLIA [id number] [place] [address] [place] Calcium [Mass/Vol] 8.7 mg/dL Normal 8.5-10.2 [facility] Comment on above: Order Comment: Speci men Type: BLOOD SPECIMENOrdering Facility: [facility] Address: [address] [place], [place] [address] Performed By: #### 2 4321-2, ####[facility] LABCLIA [id number] [facility] [place] [id number] [place] Chloride [Moles/Vol] 104 mmol/L Normal 98-107 [facility] Comment on above: Order Comment: Speci men Type: BLOOD SPECIMENOrdering Facility: [facility] Address: [address] [place] [address] Performed By: #### 2 4321-2, ####[facility] LABCLIA [id number] [place] [address] [place] CO2 [Moles/Vol] 25 mmol/L Normal 22-30 [facility] Comment on above: Order Comment: Speci men Type: BLOOD SPECIMENOrdering Facility: [facility] Address: [address] [place] [address] Performed By: #### 2 4320-2, ####[facility] LABCLIA [id number] [place] [address] [place] Creatinine [Mass/Vol] 1.02 mg/dL Normal 0.73-1.22 [facility] Comment on above: Order Comment: Speci men Type: BLOOD SPECIMENOrdering Facility: [facility] Address: [address] [place], [place] [address] Performed By: #### 2 4321-2, ####[facility] LABCLIA [id number] [place] [address] [place] Creatinine and Glomerular filtration rate.predicted panel (S/P/Bld) 78 mL/min/1.73m??? Normal >=60 [facility] Comment on above: Order Comment: Speci men Type: BLOOD SPECIMENOrdering Facility: [facility] Address: [address] [place] [address] Result Comment: Eladia mated Glomerular Filtration Rate (eGFR) is calculated using the 2020 CKD-EPI creatinine equation. This equation utilizes serum creatinine, sex, and age as parameters. The creatinine assay has traceable calibration to isotope dilution-mass spectrometry. Refer to KDIGO guidelines for clinical interpretation. In patients with unstable renal function, e.g. those with acute kidney injury, the eGFR may not accurately reflect actual GFR. Performed By: #### 2 432-2, ####[facility] LABIA [id number] [place] [id number] [place] Glucose [Mass/Vol] 83 mg/dL Normal 74-99 [facility] Comment on above: Order Comment: [place] Type: BLOOD SPECIMENOrdering Facility: [facility] Address: [address] [place] [address] Result Comment: The [place] Diabetes Association (ADA) provides guidance for cutoff values for fasting glucose and random glucose. The ADA defines fasting as no caloric intake for at least 8 hours. Fasting plasma glucose results between 100 to 125 mg/dL indicate increased risk for diabetes (prediabetes). Fasting plasma glucose results greater than or equal to 126 mg/dL meet the criteria for diagnosis of diabetes. In the absence of unequivocal hyperglycemia, results should be confirmed by repeat testing. In a patient with classic symptoms of hyperglycemia or hyperglycemic crisis, random plasma glucose results greater than or equal to 200 mg/dL meet the criteria for diagnosis of diabetes. Reference: Standards of Medical Care in Diabetes 2016, [place] [employer]. Diabetes Care. 2016.39(Suppl 1). Performed By: #### 2 4321-2, ####[facility] LABIA [id number] [place] [id number] [place] Potassium [Moles/Vol] 4.2 mmol/L Normal 3.7-5.1 [facility] Comment on above: Order Comment: [place] Type: BLOOD SPECIMENOrdering Facility: [facility] Address: [address] [place] [address] Performed By: #### 2 4321-2, ####[facility] LABCLIA [id number] [place] [address] [place] Sodium [Moles/Vol] 139 mmol/L Normal 136-144 [facility] Comment on above: Order Comment: Speci men Type: BLOOD SPECIMENOrdering Facility: [facility] Address: [address] [place] [address] Performed By: #### 2 432-2, ####[facility] LABCLIA [id number] [place] [address] [place] Urea nitrogen [Mass/Vol] 22 mg/dL Normal 9-24 [facility] Comment on above: Order Comment: Speci men Type: BLOOD SPECIMENOrdering Facility: [facility] Address: [address] [place] [address] Performed By: #### 2 432-2, ####[facility] LABIA [id number] [place] [address] [place] CBC panel Auto (Bld)on 04-12 Erythrocyte distribution width (RBC) [Ratio] 12.9 % Normal 11.5-15.0 [facility] Comment on above: Order Comment: Speci men Type: BLOOD SPECIMENOrdering Facility: [facility] Address: [address] [place] [address] Performed By: #### 5 8410-2 ####[facility] LABIA [id number] [place] [address] [place] Hematocrit (Bld) [Volume fraction] 36.6 % Low 39.0-51.0 [facility] Comment on above: Order Comment: Speci men Type: BLOOD SPECIMENOrdering Facility: [facility] Address: [address] [place] [address] Performed By: #### 5 8410-2 ####[facility] LABCLIA [id number] [place] [address] [place] Hemoglobin (Bld) [Mass/Vol] 12.6 g/dL Low 13.0-17.0 [facility] Comment on above: Order Comment: Speci men Type: BLOOD SPECIMENOrdering Facility: [facility] Address: [address] [place] [address] Performed By: #### 5 8410-2 ####[facility] LABIA [id number] [place] [address] [place] MCH (RBC) [Entitic mass] 30.1 pg Normal 26.0-34.0 [facility] Comment on above: Order Comment: Speci men Type: BLOOD SPECIMENOrdering Facility: [facility] Address: [address] [place] [address] Performed By: #### 5 8410-2 ####[facility] LABIA [id number] [place] [address] [place] MCHC (RBC) [Mass/Vol] 34.4 g/dL Normal 30.5-36.0 [facility] Comment on above: Order Comment: Speci men Type: BLOOD SPECIMENOrdering Facility: [facility] Address: [address] [place] [address] Performed By: #### 5 8410-2 ####[facility] LABIA [id number] [place] [address] [place] MCV (RBC) [Entitic vol] 87.4 fL Normal 80.0-100.0 [facility] Comment on above: Order Comment: Speci men Type: BLOOD SPECIMENOrdering Facility: [facility] Address: [address] [place] [address] Performed By: #### 5 8410-2 ####[facility] LABIA [id number] [place] [address] [place] Nucleated RBC (Bld) [#/Vol] 10*3/uL Normal <0.01 [facility] Comment on above: Order Comment: Speci men Type: BLOOD SPECIMENOrdering Facility: [facility] Address: [address] [place] [address] Performed By: #### 5 8410-2 ####[facility] LABCLIA [id number] [place] [address] [place] Platelet mean volume (Bld) [Entitic vol] 9.8 fL Normal 9.0-12.7 [facility] Comment on above: Order Comment: Speci men Type: BLOOD SPECIMENOrdering Facility: [facility] Address: [address] [place] [address] Performed By: #### 5 8410-2 ####[facility] LABIA [id number] [place] [address] [place] Platelets (Bld) [#/Vol] 181 10*3/uL Normal 150-400 [facility] Comment on above: Order Comment: Speci men Type: BLOOD SPECIMENOrdering Facility: [facility] Address: [address] [place] [address] Performed By: #### 5 8410-2 ####[facility] LABIA [id number] [place] [address] [place] RBC (Bld) [#/Vol] 4.19 10*6/uL Low 4.20-6.00 [facility] Comment on above: Order Comment: Speci men Type: BLOOD SPECIMENOrdering Facility: [facility] Address: [address] [place] [address] Performed By: #### 5 8410-2 ####[facility] LABCLIA [id number] [place] [address] [place] WBC (Bld) [#/Vol] 5.43 10*3/uL Normal 3.70-11.00 [facility] Comment on above: Order Comment: Speci men Type: BLOOD SPECIMENOrdering Facility: [facility] Address: [address] [place] [address] Performed By: #### 5 8410-2 ####[facility] LABCLIA [id number] [place] [id number] [place] Magnesium SerPl-mCncon 04-12 Magnesium [Mass/Vol] 2.1 mg/dL Normal 1.7-2.3 [facility] Comment on above: Order Comment: Speci men Type: BLOOD SPECIMENOrdering Facility: [facility] Address: [address] [place] [address] Performed By: #### 2 4321-2, 26828-6 ####[facility] LABIA [id number] [place] [address] [place] Basic metabolic 2000 panelon 04-11-2024 Anion gap [Moles/Vol] 11 mmol/L Normal 8-15 [facility] Comment on above: Order Comment: Speci men Type: BLOOD SPECIMENOrdering Facility: [facility] Address: [address] [place] [address] Performed By: #### 1 9123-9, 12480-0 ####[facility] LABIA [id number] [place] [address] [place] Calcium [Mass/Vol] 8.3 mg/dL Low 8.5-10.2 [facility] Comment on above: Order Comment: Speci men Type: BLOOD SPECIMENOrdering Facility: [facility] Address: [address] [place] [address] Performed By: #### 1 9123-9, 24686-5 ####[facility] LABIA [id number] [place] [id number] [place] Chloride [Moles/Vol] 106 mmol/L Normal 98-107 [facility] Comment on above: Order Comment: Speci men Type: BLOOD SPECIMENOrdering Facility: [facility] Address: [address] [place] [address] Performed By: #### 1 9123 ####[facility] LABCLIA [id number] [place] [id number] [place] CO2 [Moles/Vol] 24 mmol/L Normal 22-30 [facility] Comment on above: Order Comment: Speci men Type: BLOOD SPECIMENOrdering Facility: [facility] Address: [address] [place] [address] Performed By: #### 1 91, ####[facility] LABIA [id number] [place] [address] [place] Creatinine [Mass/Vol] 1.04 mg/dL Normal 0.73-1.22 [facility] Comment on above: Order Comment: Speci men Type: BLOOD SPECIMENOrdering Facility: [facility] Address: [address] [place] [address] Performed By: #### 1 91, ####[facility] [id number] [place] [address] [place] Creatinine and Glomerular filtration rate.predicted panel (S/P/Bld) 76 mL/min/1.73m??? Normal >=60 [facility] Comment on above: Order Comment: Speci men Type: BLOOD SPECIMENOrdering Facility: [facility] Address: [address] [place] [address] Result Comment: Eladia mated Glomerular Filtration Rate (eGFR) is calculated using the 2020 CKD-EPI creatinine equation. This equation utilizes serum creatinine, sex, and age as parameters. The creatinine assay has traceable calibration to isotope dilution-mass spectrometry. Refer to KDIGO guidelines for clinical interpretation. In patients with unstable renal function, e.g. those with acute kidney injury, the eGFR may not accurately reflect actual GFR. Performed By: #### 1 [address], ####[facility] LABIA [id number] [place] [id number] [place] Glucose [Mass/Vol] 80 mg/dL Normal 74-99 [facility] Comment on above: Order Comment: Chet sage Type: BLOOD SPECIMENOrdering Facility: [facility] Address: [address] [place] [address] Result Comment: The [place] Diabetes Association (ADA) provides guidance for cutoff values for fasting glucose and random glucose. The ADA defines fasting as no caloric intake for at least 8 hours. Fasting plasma glucose results between 100 to 125 mg/dL indicate increased risk for diabetes (prediabetes). Fasting plasma glucose results greater than or equal to 126 mg/dL meet the criteria for diagnosis of diabetes. In the absence of unequivocal hyperglycemia, results should be confirmed by repeat testing. In a patient with classic symptoms of hyperglycemia or hyperglycemic crisis, random plasma glucose results greater than or equal to 200 mg/dL meet the criteria for diagnosis of diabetes. Reference: Standards of Medical Care in Diabetes 2016, [place] [employer] Association. Diabetes Care. 2016.39(Suppl 1). Performed By: #### 1 9123-9, 84591-3 ####[facility] LABCLIA [id number] [place] [address] [place] Potassium [Moles/Vol] 4.1 mmol/L Normal 3.7-5.1 [facility] Comment on above: Order Comment: Chet sage Type: BLOOD SPECIMENOrdering Facility: [facility] Address: [address] [place] [address] Performed By: #### 1 9123-9, 94788-8 ####[facility] LABCLIA [id number] [place] [address] [place] Sodium [Moles/Vol] 141 mmol/L Normal 136-144 [facility] Comment on above: Order Comment: Hafsai men Type: BLOOD SPECIMENOrdering Facility: [facility] Address: [address] [place] [address] Performed By: #### 1 9123-9, 77837-4 ####[facility] LABCLIA [id number] [place] [address] [place] Urea nitrogen [Mass/Vol] 21 mg/dL Normal 9-24 [facility] Comment on above: Order Comment: Speci men Type: BLOOD SPECIMENOrdering Facility: [facility] Address: [address] [place] [address] Performed By: #### 1 9123-9, 02608-0 ####[facility] LABCLIA [id number] [place] [address] [place] CBC panel Auto (Bld)on 04-11 Erythrocyte distribution width (RBC) [Ratio] 12.9 % Normal 11.5-15.0 [facility] Comment on above: Order Comment: Speci men Type: BLOOD SPECIMENOrdering Facility: [facility] Address: [address] [place] [address] Performed By: #### 5 8410-2 ####[facility] LABIA [id number] [place] [address] [place] Hematocrit (Bld) [Volume fraction] 36.2 % Low 39.0-51.0 [facility] Comment on above: Order Comment: Speci men Type: BLOOD SPECIMENOrdering Facility: [facility] Address: [address] [place] [address] Performed By: #### 5 8410-2 ####[facility] LABIA [id number] [place] [address] [place] Hemoglobin (Bld) [Mass/Vol] 12.3 g/dL Low 13.0-17.0 [facility] Comment on above: Order Comment: Speci men Type: BLOOD SPECIMENOrdering Facility: [facility] Address: [address] [place] [address] Performed By: #### 5 8410-2 ####[facility] LABIA [id number] [place] [address] [place] MCH (RBC) [Entitic mass] 29.9 pg Normal 26.0-34.0 [facility] Comment on above: Order Comment: Speci men Type: BLOOD SPECIMENOrdering Facility: [facility] Address: [address] [place] [address] Performed By: #### 5 8410-2 ####[facility] LABCLIA [id number] [place] [address] [place] MCHC (RBC) [Mass/Vol] 34.0 g/dL Normal 30.5-36.0 [facility] Comment on above: Order Comment: Speci men Type: BLOOD SPECIMENOrdering Facility: [facility] Address: [address] [place] [address] Performed By: #### 5 8410-2 ####[facility] LABCLIA [id number] [place] [address] [place] MCV (RBC) [Entitic vol] 88.1 fL Normal 80.0-100.0 [facility] Comment on above: Order Comment: Speci men Type: BLOOD SPECIMENOrdering Facility: [facility] Address: [address] [place] [address] Performed By: #### 5 8410-2 ####[facility] LABIA [id number] [place] [address] [place] Nucleated RBC (Bld) [#/Vol] 10*3/uL Normal <0.01 [facility] Comment on above: Order Comment: Speci men Type: BLOOD SPECIMENOrdering Facility: [facility] Address: [address] [place] [address] Performed By: #### 5 8410-2 ####[facility] LABCLIA [id number] [place] [address] [place] Platelet mean volume (Bld) [Entitic vol] 9.5 fL Normal 9.0-12.7 [facility] Comment on above: Order Comment: Speci men Type: BLOOD SPECIMENOrdering Facility: [facility] Address: [address] [place] [address] Performed By: #### 5 8410-2 ####[facility] LABCLIA [id number] [place] [address] [place] Platelets (Bld) [#/Vol] 177 10*3/uL Normal 150-400 [facility] Comment on above: Order Comment: Speci men Type: BLOOD SPECIMENOrdering Facility: [facility] Address: [address] [place] [address] Performed By: #### 5 8410-2 ####[facility] LABIA [id number] [place] [address] [place] RBC (Bld) [#/Vol] 4.11 10*6/uL Low 4.20-6.00 [facility] Comment on above: Order Comment: Speci men Type: BLOOD SPECIMENOrdering Facility: [facility] Address: [address] [place] [address] Performed By: #### 5 8410-2 ####[facility] LABIA [id number] [place] [address] [place] WBC (Bld) [#/Vol] 5.24 10*3/uL Normal 3.70-11.00 [facility] Comment on above: Order Comment: Speci men Type: BLOOD SPECIMENOrdering Facility: [facility] Address: [address] [place] [address] Performed By: #### 5 8410-2 ####[facility] LABIA [id number] [place] [address] [place] Magnesium SerPl-mCncon 04-11 Magnesium [Mass/Vol] 2.1 mg/dL Normal 1.7-2.3 [facility] Comment on above: Order Comment: Speci men Type: BLOOD SPECIMENOrdering Facility: [facility] Address: [address] [place] [address] Performed By: #### 1 9123-9, 67665-9 ####[facility] LABCLIA [id number] [place] [address] [place] ALLIED HEALTHon 04-10-2024 ALLIED HEALTH HNO ID: [id number] Author: NOEMY CASTANEDA Chaplain Service: Spiritual Care Author Type: Type: Allied Health Filed: 04/10/2024 14:27 Note Text: SPIRITUAL CARE ASSESSMENT SERVICE DATE: 04/10/2024 SERVICE TIME: 1329 Visit with: Patient Length of visit (minutes): 10 Religious / Spirituality: Denominational Reason: Initial visit ASSESSMENT Emotional Disposition: Neutral and Conent Relational Concerns: None Spiritual Concerns: None INTERVENTIONS Empowerment: Informed patient of spiritual care resources available Exploration: Explored emotional needs and resources and Explored relational needs and resources Relationship Building: Explored interpersonal dynamics Ritual: None / Not Applicable OUTCOMES Patient expressed gratitude, Identified meaningful connections, and Relational resources utilized PLAN Follow-up not needed SIGNATURE: Chaplain Neri PATIENT NAME: Chloe Wilcox DATE: April 10, 2024 TIME: 2:25 PM PAGER/CONTACT #: [phone] Normal [facility] Basic metabolic 2000 panelon 04-10-2024 Anion gap [Moles/Vol] 10 mmol/L Normal 8-15 [facility] Comment on above: Order Comment: Speci men Type: BLOOD SPECIMEN [facility] Address: [address] [place] [address] Performed By: #### 1 4979-9 #### [facility] LAB CLIA [id number] [address] [place] [address] [place] Calcium [Mass/Vol] 9.3 mg/dL Normal 8.5-10.2 [facility] Comment on above: Order Comment: Speci men Type: BLOOD SPECIMEN [facility] Address: [address] [place] [address] Performed By: #### 1 4979-9 #### [facility] LAB CLIA [id number] [address] [place] [address] [place] Chloride [Moles/Vol] 104 mmol/L Normal 98-107 [facility] Comment on above: Order Comment: Speci men Type: BLOOD SPECIMEN [facility] Address: [address] [place] [address] Performed By: #### 1 4979-9 #### [facility] LAB CLIA [id number] [address] [place] [address] [place] CO2 [Moles/Vol] 26 mmol/L Normal 22-30 [facility] Comment on above: Order Comment: Speci men Type: BLOOD SPECIMEN [facility] Address: [address] [place] [address] Performed By: #### 1 4979-9 #### [facility] LAB CLIA [id number] [address] [place] [address] [place] Creatinine [Mass/Vol] 1.06 mg/dL Normal 0.73-1.22 [facility] Comment on above: Order Comment: Speci men Type: BLOOD SPECIMEN [facility] Address: [address] [place] [address] Performed By: #### 1 4979-9 #### [facility] LAB CLIA [id number] [address] [place] [address] [place] Creatinine and Glomerular filtration rate.predicted panel (S/P/Bld) 75 mL/min/1.73m??? Normal >=60 [facility] Comment on above: Order Comment: Speci men Type: BLOOD SPECIMEN [facility] Address: [address] [place] [address] Result Comment: Eladia mated Glomerular Filtration Rate (eGFR) is calculated using the 2020 CKD-EPI creatinine equation. This equation utilizes serum creatinine, sex, and age as parameters. The creatinine assay has traceable calibration to isotope dilution-mass spectrometry. Refer to KDIGO guidelines for clinical interpretation. In patients with unstable renal function, e.g. those with acute kidney injury, the eGFR may not accurately reflect actual GFR. Performed By: #### 1 4979-9 #### [facility] LAB CLIA [id number] [address] [place] [address] [place] Glucose [Mass/Vol] 91 mg/dL Normal 74-99 [facility] Comment on above: Order Comment: Speci men Type: BLOOD SPECIMEN [facility] Address: [address] [place] [address] Result Comment: The [place] Diabetes Association (ADA) provides guidance for cutoff values for fasting glucose and random glucose. The ADA defines fasting as no caloric intake for at least 8 hours. Fasting plasma glucose results between 100 to 125 mg/dL indicate increased risk for diabetes (prediabetes). Fasting plasma glucose results greater than or equal to 126 mg/dL meet the criteria for diagnosis of diabetes. In the absence of unequivocal hyperglycemia, results should be confirmed by repeat testing. In a patient with classic symptoms of hyperglycemia or hyperglycemic crisis, random plasma glucose results greater than or equal to 200 mg/dL meet the criteria for diagnosis of diabetes. Reference: Standards of Medical Care in Diabetes 2016, [place] [employer]. Diabetes Care. 2016.39(Suppl 1). Performed By: #### 1 4979-9 #### [facility] LAB CLIA [id number] [address] [place] [address] [place] Potassium [Moles/Vol] 4.4 mmol/L Normal 3.7-5.1 [facility] Comment on above: Order Comment: Hafsai men Type: BLOOD SPECIMEN [facility] Address: [address] [place] [address] Performed By: #### 1 4979-9 #### [facility] LAB CLIA [id number] [address] [place] [address] [place] Sodium [Moles/Vol] 140 mmol/L Normal 136-144 [facility] Comment on above: Order Comment: Speci men Type: BLOOD SPECIMEN [facility] Address: [address] [place] [address] Performed By: #### 1 4979-9 #### [facility] LAB CLIA [id number] [address] [place] [address] [place] Urea nitrogen [Mass/Vol] 24 mg/dL Normal 9-24 [facility] Comment on above: Order Comment: Speci men Type: BLOOD SPECIMEN [facility] Address: [address] [place] [address] Performed By: #### 1 4979-9 #### [facility] CLIA [id number] [address] [place] [address] [place] CBC panel Auto (Bld)on 04-10 Erythrocyte distribution width (RBC) [Ratio] 13.0 % Normal 11.5-15.0 [facility] Comment on above: Order Comment: Speci men Type: BLOOD SPECIMENOrdering Facility: [facility] Address: [address] [place] [address] Performed By: #### 5 8410-2 ####[facility] LABCLIA [id number] [place] [address] [place] Hematocrit (Bld) [Volume fraction] 38.5 % Low 39.0-51.0 [facility] Comment on above: Order Comment: Speci men Type: BLOOD SPECIMENOrdering Facility: [facility] Address: [address] [place] [address] Performed By: #### 5 8410-2 ####[facility] LABCLIA [id number] [place] [address] [place] Hemoglobin (Bld) [Mass/Vol] 13.1 g/dL Normal 13.0-17.0 [facility] Comment on above: Order Comment: Speci men Type: BLOOD SPECIMENOrdering Facility: [facility] Address: [address] [place] [address] Performed By: #### 5 8410-2 ####[facility] LABCLIA [id number] [place] [address] [place] MCH (RBC) [Entitic mass] 29.8 pg Normal 26.0-34.0 [facility] Comment on above: Order Comment: Speci men Type: BLOOD SPECIMENOrdering Facility: [facility] Address: [address] [place] [address] Performed By: #### 5 8410-2 ####[facility] LABCLIA [id number] [place] [address] [place] MCHC (RBC) [Mass/Vol] 34.0 g/dL Normal 30.5-36.0 [facility] Comment on above: Order Comment: Speci men Type: BLOOD SPECIMENOrdering Facility: [facility] Address: [address] [place] [address] Performed By: #### 5 8410-2 ####[facility] LABIA [id number] [place] [address] [place] MCV (RBC) [Entitic vol] 87.7 fL Normal 80.0-100.0 [facility] Comment on above: Order Comment: Speci men Type: BLOOD SPECIMENOrdering Facility: [facility] Address: [address] [place] [address] Performed By: #### 5 8410-2 ####[facility] LABIA [id number] [place] [address] [place] Nucleated RBC (Bld) [#/Vol] 10*3/uL Normal <0.01 [facility] Comment on above: Order Comment: Speci men Type: BLOOD SPECIMENOrdering Facility: [facility] Address: [address] [place] [address] Performed By: #### 5 8410-2 ####[facility] LABIA [id number] [place] [address] [place] Platelet mean volume (Bld) [Entitic vol] 9.6 fL Normal 9.0-12.7 [facility] Comment on above: Order Comment: Speci men Type: BLOOD SPECIMENOrdering Facility: [facility] Address: [address] [place] [address] Performed By: #### 5 8410-2 ####[facility] LABIA [id number] [place] [address] [place] Platelets (Bld) [#/Vol] 198 10*3/uL Normal 150-400 [facility] Comment on above: Order Comment: Speci men Type: BLOOD SPECIMENOrdering Facility: [facility] Address: [address] [place] [address] Performed By: #### 5 8410-2 ####[facility] LABCLIA [id number] [place] [address] [place] RBC (Bld) [#/Vol] 4.39 10*6/uL Normal 4.20-6.00 [facility] Comment on above: Order Comment: Speci men Type: BLOOD SPECIMENOrdering Facility: [facility] Address: [address] [place] [address] Performed By: #### 5 8410-2 ####[facility] LABCLIA [id number] [place] [address] [place] WBC (Bld) [#/Vol] 6.02 10*3/uL Normal 3.70-11.00 [facility] Comment on above: Order Comment: Speci men Type: BLOOD SPECIMENOrdering Facility: [facility] Address: [address] [place] [address] Performed By: #### 5 8410-2 ####[facility] LABCLIA [id number] [place] [address] [place] Magnesium SerPl-mCncon 04-10 Magnesium [Mass/Vol] 2.1 mg/dL Normal 1.7-2.3 [facility] Comment on above: Order Comment: Speci men Type: BLOOD SPECIMEN [facility] Address: [address] [place] [address] Performed By: #### 1 4979-9 #### [facility] CLIA [id number] [address] [place] [address] [place] Basic metabolic 2000 panelon 04-09-2024 Anion gap [Moles/Vol] 15 mmol/L Normal 8-15 [facility] Comment on above: Order Comment: Speci men Type: BLOOD SPECIMENOrdering Facility: [facility] Address: [address] [place] [address] Performed By: #### 2 4321-2, ####[facility] LABCLIA [id number] [place] [address] [place] Calcium [Mass/Vol] 9.6 mg/dL Normal 8.5-10.2 [facility] Comment on above: Order Comment: Speci men Type: BLOOD SPECIMENOrdering Facility: [facility] Address: [address] [place] [address] Performed By: #### 2 432-2, ####[facility] LABCLIA [id number] [place] [address] [place] Chloride [Moles/Vol] 103 mmol/L Normal 98-107 [facility] Comment on above: Order Comment: Speci men Type: BLOOD SPECIMENOrdering Facility: [facility] Address: [address] [place] [address] Performed By: #### 2 4320-2, ####[facility] LABCLIA [id number] [place] [address] [place] CO2 [Moles/Vol] 23 mmol/L Normal 22-30 [facility] Comment on above: Order Comment: Speci men Type: BLOOD SPECIMENOrdering Facility: [facility] Address: [address] [place], [place] [address] Performed By: #### 2 4320-2, ####[facility] LABCLIA [id number] [place] [id number] [place] Creatinine [Mass/Vol] 0.94 mg/dL Normal 0.73-1.22 [facility] Comment on above: Order Comment: Speci men Type: BLOOD SPECIMENOrdering Facility: [facility] Address: [address] [place] [address] Performed By: #### 2 4321-2, ####[facility] LABIA [id number] [place] [address] [place] Creatinine and Glomerular filtration rate.predicted panel (S/P/Bld) 86 mL/min/1.73m??? Normal >=60 [facility] Comment on above: Order Comment: Chet sage Type: BLOOD SPECIMENOrdering Facility: [facility] Address: [address] [place] [address] Result Comment: Eladia mated Glomerular Filtration Rate (eGFR) is calculated using the 2020 CKD-EPI creatinine equation. This equation utilizes serum creatinine, sex, and age as parameters. The creatinine assay has traceable calibration to isotope dilution-mass spectrometry. Refer to KDIGO guidelines for clinical interpretation. In patients with unstable renal function, e.g. those with acute kidney injury, the eGFR may not accurately reflect actual GFR. Performed By: #### 2 4321-2, ####[facility] LABIA [id number] [place] [address] [place] Glucose [Mass/Vol] 102 mg/dL High 74-99 [facility] Comment on above: Order Comment: Chet sage Type: BLOOD SPECIMENOrdering Facility: [facility] Address: [address] [place] [address] Result Comment: The [place] Diabetes Association (ADA) provides guidance for cutoff values for fasting glucose and random glucose. The ADA defines fasting as no caloric intake for at least 8 hours. Fasting plasma glucose results between 100 to 125 mg/dL indicate increased risk for diabetes (prediabetes). Fasting plasma glucose results greater than or equal to 126 mg/dL meet the criteria for diagnosis of diabetes. In the absence of unequivocal hyperglycemia, results should be confirmed by repeat testing. In a patient with classic symptoms of hyperglycemia or hyperglycemic crisis, random plasma glucose results greater than or equal to 200 mg/dL meet the criteria for diagnosis of diabetes. Reference: Standards of Medical Care in Diabetes 2016, [place] [employer]. Diabetes Care. 2016.39(Suppl 1). Performed By: #### 2 4321-2, ####[facility] LABCLIA [id number] [address] [address] [place] Potassium [Moles/Vol] 4.4 mmol/L Normal 3.7-5.1 [facility] Comment on above: Order Comment: Speci men Type: BLOOD SPECIMENOrdering Facility: [facility] Address: [address] [place] [address] Performed By: #### 2 432-, ####[facility] LABIA [id number] [place] [id number] [place] Sodium [Moles/Vol] 141 mmol/L Normal 136-144 [facility] Comment on above: Order Comment: Speci men Type: BLOOD SPECIMENOrdering Facility: [facility] Address: [address] [place] [address] Performed By: #### 2 43202-20, ####[facility] LABIA [id number] [place] [id number] [place] Urea nitrogen [Mass/Vol] 21 mg/dL Normal 9-24 [facility] Comment on above: Order Comment: Speci men Type: BLOOD SPECIMENOrdering Facility: [facility] Address: [address] [place] [address] Performed By: #### 2 43202-20, ####[facility] LABIA [id number] [address] [address] [place] CASE MANAGEMon 04-09-2024 CASE MANAGEM HNO ID: [id number] Author: EUGENIA FAIR, ? Service: ? Author Type: ? Type: Care Mgt Progress Note Filed: 04/09/2024 14:51 Note Text: CARE MANAGEMENT PROGRESS NOTE SERVICE DATE: 04/09/2024 SERVICE TIME: 2:50 PM LOS: 1 day [facility] Patient named Spouse, Mandie as agent. Hard copy of [facility] paperwork placed on patient's green chart and copy sent to Admitting via pneumatic tube system to be scanned into Epic. Patient provided with original document. SIGNATURE: Eugenia Fair PATIENT NAME: Chloe Wilcox DATE: April 09, 2024 TIME: 2:50 PM Normal [facility] CBC panel Auto (Bld)on 04-09 Erythrocyte distribution width (RBC) [Ratio] 12.9 % Normal 11.5-15.0 [facility] Comment on above: Order Comment: Speci men Type: BLOOD SPECIMENOrdering Facility: [facility] Address: [address] [place] [address] Performed By: #### 5 8410-2 ####[facility] [id number] [place] [address] [place] Hematocrit (Bld) [Volume fraction] 43.2 % Normal 39.0-51.0 [facility] Comment on above: Order Comment: Speci men Type: BLOOD SPECIMENOrdering Facility: [facility] Address: [address] [place] [address] Performed By: #### 5 8410-2 ####[facility] LABIA [id number] [place] [address] [place] Hemoglobin (Bld) [Mass/Vol] 14.4 g/dL Normal 13.0-17.0 [facility] Comment on above: Order Comment: Speci men Type: BLOOD SPECIMENOrdering Facility: [facility] Address: [address] [place] [address] Performed By: #### 5 8410-2 ####[facility] LABIA [id number] [place] [address] [place] MCH (RBC) [Entitic mass] 29.9 pg Normal 26.0-34.0 [facility] Comment on above: Order Comment: Speci men Type: BLOOD SPECIMENOrdering Facility: [facility] Address: [address] [place] [address] Performed By: #### 5 8410-2 ####[facility] LABCLIA [id number] [place] [address] [place] MCHC (RBC) [Mass/Vol] 33.3 g/dL Normal 30.5-36.0 [facility] Comment on above: Order Comment: Speci men Type: BLOOD SPECIMENOrdering Facility: [facility] Address: [address] [place] [address] Performed By: #### 5 8410-2 ####[facility] LABIA [id number] [place] [address] [place] MCV (RBC) [Entitic vol] 89.6 fL Normal 80.0-100.0 [facility] Comment on above: Order Comment: Speci men Type: BLOOD SPECIMENOrdering Facility: [facility] Address: [address] [place] [address] Performed By: #### 5 8410-2 ####[facility] LABIA [id number] [place] [address] [place] Nucleated RBC (Bld) [#/Vol] 10*3/uL Normal <0.01 [facility] Comment on above: Order Comment: Speci men Type: BLOOD SPECIMENOrdering Facility: [facility] Address: [address] [place] [address] Performed By: #### 5 8410-2 ####[facility] LABIA [id number] [place] [address] [place] Platelet mean volume (Bld) [Entitic vol] 9.4 fL Normal 9.0-12.7 [facility] Comment on above: Order Comment: Speci men Type: BLOOD SPECIMENOrdering Facility: [facility] Address: [address] [place] [address] Performed By: #### 5 8410-2 ####[facility] LABIA [id number] [place] [address] [place] Platelets (Bld) [#/Vol] 232 10*3/uL Normal 150-400 [facility] Comment on above: Order Comment: Speci men Type: BLOOD SPECIMENOrdering Facility: [facility] Address: [address] [place] [address] Performed By: #### 5 8410-2 ####[facility] LABCLIA [id number] [place] [address] [place] RBC (Bld) [#/Vol] 4.82 10*6/uL Normal 4.20-6.00 [facility] Comment on above: Order Comment: Speci men Type: BLOOD SPECIMENOrdering Facility: [facility] Address: [address] [place] [address] Performed By: #### 5 8410-2 ####[facility] LABCLIA [id number] [place] [address] [place] WBC (Bld) [#/Vol] 8.25 10*3/uL Normal 3.70-11.00 [facility] Comment on above: Order Comment: Speci men Type: BLOOD SPECIMENOrdering Facility: [facility] Address: [address] [place] [address] Performed By: #### 5 8410-2 ####[facility] LABIA [id number] [place] [address] [place] CTA CORONARY W IVCONon 04-09 CTA CORONARY W IVCON * * *Final Report* * * DATE OF EXAM: Apr 09 2024 9:38AM JQC 0470 - CTA CORONARY W IVCON / PROCEDURE REASON: Looking for patency of 4 grafts - SVG to LAD, SVG to OM1, SVG to OM2 and left ra * * * * Physician Interpretation * * * * CTA CORONARY ARTERIES Direct Image Comparison: CTA chest 02/01/2021 HISTORY: 73 years old Male patient with history of aortic valve stenosis s/p AVR (homograft#23) 11/1995, coronary heart disease s/p CABGx3 2010 (SVG-LAD, SVG-PDA, SVG-OM1), then recurrent aortic stenosis s/p TAVR (S3#23) 04/2018, then chest pain/graft occlusion s/p CABGx3 (left radial-PDA, SVG-OM1, SVG-OM2) and bio-Bentall (Konect#25) 01/2021, now with further chest pains and all grafts occluded on cath yesterday, for coronary artery and CABG graft anatomy evaluation, along with dyslipidemia and TIA. TECHNIQUE: SCANNER:in-patient Siemens Definition Force Dual source [id number] scanner PROTOCOL: Spiral imaging of the heart with retrospective gating and submillimeter slice reconstruction throughout the cardiac cycle following administration of contrast material. Scan Range: thoracic inlet to the diaphragm CT Dose-Length Product (DLP): 462 mGy*cm CT Dose Reduction Employed: Automated exposure control(AEC) and iterative recon CONTRAST: IV administration of 85 ml Omnipaque 350 Premedication with mg i.v. lopressor and 0.3 mg sublingual nitroglycerin Scan acquisition: uncomplicated Macro Version: [id number] For optimization of anatomic evaluation, advanced 3-D off-line postprocessing was performed on a dedicated workstation by the interpreting physician. STUDY LIMITATIONS: None. RESULT: LINES, TUBES and DEVICES: None limited CHEST: visualized Chest wall anatomy: evidence of median sternotomy with sternal wires in place. Retained epicardial pacer wires are in place. Thyroid gland appears unremarkable visualized LUNGS: trivial bilateral pleural effusions. visualized MEDIASTINUM: unremarkable. PERICARDIUM: unremarkable CENTRAL PULMONARY ARTERY: normal dimensions. Assessment is limited due to limited contrast enhancement. CARDIAC CHAMBERS: overall normal dimensions and anatomy. LEFT VENTRICLE: normal size with normal systolic function on qualitative assessment. RIGHT VENTRICLE: normal size and normal function on qualitative assessment. Left Atrium: normal size. EDILBERTO: normal. Right Atrium: normal size CENTRAL VENOUS and PULMONARY VENOUS RETURN: normal. Coronary Sinus: normal size MITRAL VALVE: assessment is limited in the current study - no leaflet calcification. No annular calcification TRICUSPID and PULMONIC VALVE: appear unremarkable. AORTIC VALVE: S/P bioBentall (Konect#25 including bioprosthetic AVR) in stable position, normal prosthetic leaflet thickness and motion and no calcifications. visualized AORTA: Normal course and caliber thoracic aorta, Pathology: No aortic pathology in limited visualized segments of the aorta, Intervention: S/P bioBentall (Konect#25) graft with stable position with no graft/anastomotic complications. Complications: n/a Aortic Size: Normal size visualized thoracic aorta. STJ: maintained Wall Changes: Mild atherosclerotic changes AORTIC DIMENSIONS: grafted AORTIC ROOT: 3.7 cm measured [id number] grafted ASCENDING THORACIC AORTA: 3.1 cm mid AORTIC ARCH: 2.8 cm proximal DESCENDING THORACIC AORTA: 2.7 cm CORONARY ANATOMY: patent ostia of the re-implanted coronary arteries. LEFT MAIN: Coronary Artery Small sized vessel, which bifurcates into LAD and LCX. LM Stenosis and Plaque: Extensive amount of plaque with stent extending to the LCx. Severe left main luminal stenosis (>50%). LAD: (Left Anterior Descending Coronary Artery) Normal size vessel, which wraps around the apex. Gives rise to 2 diagonal branches and small septal branches. LAD Stenosis and Plaque: Severe amount of plaque. severe luminal stenosis (70-99%). RAMUS INTERMEDIUS: N/A. RI Stenosis and Plaque: N/A. LCX: (Left Circumflex Coronary Artery) Normal size vessel, which is non-dominant. Gives rise to 3 obtuse marginal branches. LCX Stenosis and Plaque: Extensive amount of plaque. Severe luminal stenosis (70-99%). S: Stent in the proximal region with ISR distal opacification of the vessel with severe luminal disease in the mid to distal segments. RCA: (Right Coronary Artery) Normal size vessel, which is dominant.. Gives rise to a conus branch, SA olivia branch, 2 acute marginal branch. In its distal segment it bifurcates into the PDA and PV branch. RCA Stenosis and Plaque: Extensive amount of plaque. Severe luminal stenosis (70-99%). S/P CABGx3 2010 (SVG-LAD, SVG-PDA, SVG-OM1) and s/p redo CABGx3 (left radial-PDA, SVG-OM1, SVG-OM2) 01/2021; one aorto-coronary graft (to PDA) appears patent, all others occluded from their origins. limited upper ABDOMEN: unremarkable BONES and SOFT TISSUES: degenerative changes of the t (more content not included)... Normal [facility] Magnesium [facility] Magnesium [Mass/Vol] 2.1 mg/dL Normal 1.7-2.3 [facility] Comment on above: Order Comment: Speci men Type: BLOOD SPECIMENOrdering Facility: [facility] Address: [address] [place] [address] Performed By: #### 2 4321-2, 81494-0 ####[facility] LABCLIA [id number] [id number] [facility] NURSING PROGon 04-09-2024 NURSING PROG HNO ID: [id number] Author: JYOTI LANE, MARCY Service: Radiology Author Type: Registered Nurse Type: Nursing Progress Note Filed: 04/09/2024 09:32 Note Text: Radiology Service Progress Note DATE OF SERVICE: April 09, 2024 TIME: 9:17 AM PATIENT WEIGHT: 168 LBS PATIENT IDENTITY VERIFICATION COMPLETED USING TWO (2) STANDARD IDENTIFIERS: Name and Date of confirmed by patient verbally and Name and Date of confirmed by identification band. FALL SCREENING: Has the patient had 2 falls in the last year or 1 fall with injury or currently using an Ambulatory Assistive Device (Walker, Cane, Wheelchair, Crutches, etc.)? Inpatient: Screened on floor PATIENT GENDER DATA: Assigned male at ALLERGIES: Reviewed and unchanged CONTRAST ALLERGY: No EXAM: CT -CONTRAST INDUCED NEPHROPATHY RISK FACTORS: Patient age > 60 years CREATININE: Creatinine Date Value Ref Range Status 04/09/2024 0.94 0.73 - 1.22 mg/dL Final 04/02/2024 1.02 0.73 - 1.22 mg/dL Final 05/03/2021 1.02 0.73 - 1.22 mg/dL Final Estimated Glomerular Filtration Rate Date Value Ref Range Status 04/09/2024 86 >=60 mL/min/1.73m? Final Comment: Estimated Glomerular Filtration Rate (eGFR) is calculated using the 2020 CKD-EPI creatinine equation. This equation utilizes serum creatinine, sex, and age as parameters. The creatinine assay has traceable calibration to isotope dilution-mass spectrometry. Refer to KDIGO guidelines for clinical interpretation. In patients with unstable renal function, e.g. those with acute kidney injury, the eGFR may not accurately reflect actual GFR. eGFR- Date Value Ref Range Status 02/17/2021 >60 Final P.O.C.T. RESULTS: N/A April 09, 2024 TREATMENT: No Hydration needed. IV SITE: Inpatient - refer to [facility] documentation IV SITE APPEARANCE: Clean,Dry and Intact Radiology Service Progress Note PATIENT NAME: Chloe Wilcox DATE OF SERVICE: April 09, 2024 TIME: 9:17 AM PATIENT IDENTITY VERIFICATION COMPLETED USING TWO (2) STANDARD IDENTIFIERS: Name and Date of confirmed by patient verbally and Name and Date of confirmed by identification band. PATIENT GENDER DATA: Assigned male at PATIENT RELEVANT IMPLANT DATA REVIEWED: Yes ALLERGIES: Reviewed and unchanged MEDICATIONS REVIEWED: YES PROCEDURE TYPE: CT: Beta Blocking and CT: NTG SL PATIENT SCREENING: CHF: No, Heart Block: No, Aortic Stenosis: No, Aortic Insufficiency: Yes, Asthmatic/Bronchospas tic Disease: No, IV Beta Blocking (Lopressor/Metoprolol Tartrate): No, and Medications that may enhance heart rate, slowing the effect of betablockers or calcium channel blockers: No Aortic Stenosis: No, Aortic Insufficiency: No, Constrictive Pericarditis: No, Hypertrophic/Restrict staci Cardiomyopathy: No, Use of Phosphodiesterase - 5 Inhibitors: No, and Stress test planned for later today: No IV SITE: Inpatient - refer to [facility] documentation PERIPHERAL IV ACCESS: Inpatient see LDA documentation CARDIAC MEDICATIONS: Nitroglycerin 0.3 mg SL given PATIENT DISCHARGED TO: Patient transferred to [facility]. Report called to Floor RN. SIGNED BY: Jyoti Lane RN April 09, 2024 9:17 AM SIGNATURE: Jyoti Lane RN PATIENT NAME: Chloe Wilcox DATE: April 09, 2024 TIME: 9:17 AM Normal [facility] aPTT PPPon 04-09-2024 aPTT Coag (PPP) [Time] 27.1 s Normal 23.0-32.4 [facility] Comment on above: Order Comment: Speci men Type: BLOOD SPECIMENOrdering Facility: [facility] Address: [address] [place] [address] Performed By: #### 1 4979-9 ####[facility] LABCLIA [id number] [address] [place] aPTT Coag (PPP) [Time] 27.2 s Normal 23.0-32.4 [facility] Comment on above: Order Comment: Speci men Type: BLOOD SPECIMEN [facility] Address: [address] [place] [address] Performed By: #### 1 4979-9 #### [facility] LAB CLIA [id number] [address] [place] [address] [place] Order Comment: Speci men Type: BLOOD SPECIMENOrdering Facility: [facility] Address: [address] [place] [address] Performed By: #### 1 4979-9 ####[facility] LABCLIA [id number] [address] [place] aPTT Coag (PPP) [Time] 27.0 s Normal 23.0-32.4 [facility] Comment on above: Order Comment: Speci men Type: BLOOD SPECIMEN [facility] Address: [address] [place] [address] Performed By: #### 1 4979-9 #### [facility] LAB CLIA [id number] [address] [place] [address] [place] aPTT Coag (PPP) [Time] 27.4 s Normal 23.0-32.4 [facility] Comment on above: Order Comment: Speci men Type: BLOOD SPECIMENOrdering Facility: [facility] Address: [address] [place] [address] Performed By: #### 1 4979-9 ####[facility] LABCLIA [id number] [place] [id number] [place] aPTT Coag (PPP) [Time] 27.5 s Normal 23.0-32.4 [facility] Comment on above: Order Comment: Speci men Type: BLOOD SPECIMENOrdering Facility: [facility] Address: [address] [place] [address] Performed By: #### 1 4979-9 ####[facility] LABCLIA [id number] [address] aPTT Coag (PPP) [Time] 27.3 s Normal 23.0-32.4 [facility] Comment on above: Order Comment: Speci men Type: BLOOD SPECIMENOrdering Facility: [facility] Address: [address] [place] [address] Performed By: #### 1 4979-9 ####[facility] LABCLIA [id number] [address] aPTT Coag (PPP) [Time] 27.6 s Normal 23.0-32.4 [facility] Comment on above: Order Comment: Speci men Type: BLOOD SPECIMENOrdering Facility: [facility] Address: [address] [place] [address] Performed By: #### 1 4979-9 ####[facility] LABIA [id number] [address] [facility] CARD CATH DIAGNOSTICon 04-08 CARD CATH DIAGNOSTIC Site Id: [facility] Lab #: [facility] HVI Packaging Supervisor 1 Study Date: 04/08/2024 Start Time: 04/08/2024 10:51:27 AM End Time: 04/08/2024 12:30:37 PM Physician Name Kurtis Hastings M.D., PhD Pennie Barba M.D., Trent M.D. Nursing/[facility] Sergey Cali R.N., A R.N. Richards, E. RMellissa Thomas. RTuan + + PATIENT INFORMATION + + Name: MR. CHLOE WILCOX : 1950 Age: 73 years Gender: M Height: 64 in / 163 cm Weight: 173.00 lb / 78.47 kg BMI: 29.54 kg/m BSA: 1.84 m Allergies: NKDA + + CLINICAL HISTORY/INDICATION(s) + + High-risk noninvasive findings with worsening/limiting symptoms; AUC score = 8. CAD Presentation: Symptoms Likely to be Ischemic Angina Classification (within 2 weeks): CCS II Anti-Angina Meds (within 2 weeks): Yes. No Heart Failure No Cardiomyopathy - No LV Dysfunction Pre-Op Evaluation before Non-Card Surg: No Cardiogenic Shock: No Cardiac Arrest: No 73 year old man with a PMH of CAD (s/p CABG and PCI), SAVR, HLD, HFpEF, and first degree AV block who is admitted with new onset angina. Access Point Sheath Size Hemostasis Method Femoral artery right 6F Long Manual Hold - Nursing Unit + + DIAGNOSTIC FINDINGS + + Coronary Anatomy: Right Dominant Injection Site(s): Left Main Coronary Artery, Right Coronary Artery, Ascending Aorta and Saphenous Vein Graft LMT: The LMT has moderate diffuse disease. Additional Comment: The left main is a large caliber vessel that bifurcates in to the LAD and LCX arteries. LAD: The proximal LAD is narrowed 100 % - ostial. The mid LAD is narrowed 99 % - focal disease. The distal - severe diffuse disease. The 1st diagonal - severe diffuse disease. Additional Comment: The LAD is a large caliber vessel that is occluded in the proximal vessel and fills via a bridging collaterals. The proximal LAD is severely diseased with a focal 99% stenosis and the remainder of the vessel has severe diffuse disease. The LAD wraps around the LV apex and gives rise to a moderate caliber D1 that has severe diffuse disease and moderate caliber S1 in addition to multiple small caliber septal perforators. His prior SVG to the LAD is occluded. LCX: The proximal circumflex is narrowed 60 % - focal disease and ISR. The mid circumflex is narrowed 80 % - focal disease. The distal circumflex - severe diffuse disease. The 1st obtuse marginal circumflex - moderate diffuse disease. The 2nd obtuse marginal circumflex - moderate diffuse disease. Additional Comment: The LCS is a large caliber, non-dominant vessel that gives rise to a large caliber OM1 and moderate caliber OM2. The prior SVG > OM1 and SVG > OM2 are occluded. RAMUS: The Ramus is Absent. RCA: The proximal RCA - Subtotal occlusion. Additional Comment: The RCA is a large caliber dominant vessel that gives rise to a moderate caliber rPDA and PLV branches. The RCA is heavily disease with a sub-total occlusion in the proximal portion of the vessel with subsequent recanalizationof the mid vessel. The rPDA has severe diffuse disease. The prior SVG to the rPDA is known occluded from the prior diagnostic cath and the left radial graft to the rPDA is occluded as well. GRAFTS: Saphenous Vein Graft End to Side to the Mid LAD . Additional Comments - Occluded. Saphenous Vein Graft End to Side to the OM-1 First Obtuse Marginal Branch . Additional Comments - Occluded. Saphenous Vein Graft End to Side to the OM-2 Second Obtuse Marginal Branch . Additional Comments - Occluded. Radial Graft End to Side to the Right Posterior Atrioventricular . Additional Comments - Occluded. +-------+ IMAGING +-------+ Intravascular imaging not performed. + -----+ HEMODYNAMIC INTERROGATION + -----+ Hemodynamic interrogation not performed. + + HEMODYNAMICS + + + + IMPRESSION/PLAN + + Impression: 1. Severe triple vessel CAD with occlusion of the ostial LAD and 99% mid LAD stenosis, focal 60% ISR of the proximal LCX and 80% mid LCX and subtotal occlusion of the proximal RCA. 2. All prior grafts are occluded including the SVG > LAD, SVG > OM1, SVG > OM2 and left radial graft > rPDA 3. Right dominant system. Recommended Treatment: PCI vs. CABG. Plan: Admit to the hospital for consideration for high risk PCI vs. repeat CABG and coronary CTA to evaluate the coronary grafts. + + ADVERSE OUTCOME(s)/COMPLICATI ON(s) + + None + + PROCEDURAL & TECHNICAL DETAILS + + PROCEDURE SEQUENCE: Time Procedure Performed 04/08/2024 12:00:26 PM Left Heart Cath PROCEDUR (more content not included)... Normal [facility] CNDSon 04-08-2024 [facility] HNO ID: [id number] Author: CEM LANDRY APRN.RETINAL ANGIOGRAPHER Service: Cardiovascular Medicine Author Type: Nurse Practitioner Type: Discharge Summary Filed: 04/15/2024 11:54 Note Text: Attestation signed by Kurtis Hastings MD at 04/15/2024 1:04 PM Kurtis Hastings Department of Cardiovascular Medicine Discharge Summary (Template ID [id number]) PATIENT NAME: Chloe Wilcox ADMISSION DATE: 04/08/2024 DISCHARGE DATE: 04/15/2024 Attending Physician: Kurtis Hastings MD Code Status: Not on file Primary Service: Intervention, Hvi Card Admission Diagnosis: Unstable angina Discharge Diagnosis: Unstable angina Secondary Diagnoses: Patient Active Hospital Problem List: Status post transcatheter aortic valve replacement (TAVR) using bioprosthesis Date Noted: 04/23/2018 Nonrheumatic aortic valve stenosis Date Noted: 04/23/2018 Hyperlipidemia Date Noted: 04/23/2018 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) Date Noted: 04/23/2018 Unstable angina (HCC) Date Noted: 04/08/2024 Reason for Hospitalization: HISTORY Chloe Wilcox is an 73 year old male with pmhx of: CAD -2010 redo CABG (SV-LAD/OM, SV-PDA), -2019- s/p PCI to LM-Cx -01/26/2021; 3rd redo sternotomy, homograft removal, AVR/Root replacement (Konect 25), CABGx3 (Lt. 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 Hastings's recently seen virtually in [facility] on 04/01/2024 by JOHN for significant progressive angina very similar to his prior angina. He was schedule for elective cardiac cath on 04/08/[address] Hastings. Patient underwent cardiac cath and found that all his prior surgical grafts are occluded (SVG > mid LAD, Svg > OM1, SVG > OM2 and left radial to rPDA) with severe triple vessel rosebud CAD. Attempted to engage the LM with a 6F XB 3.5 guide and the patient developed chest pain and anterior ST depressions. The cath was subsequently disengaged from the LM and the patient's chest pain resolved. Patient directly admitted forCoronary CTA to further interrogate/ confirm graft failure, anti-anginal medication titration and consideration for high risk PCI to LAD, DCB to the LCX and possible STITCHDOWNS TOE FORMER intervention to the RCA vs. Repeat CABG. HOSPITAL COURSE: Optimizing antianginals and GDMT, High risk PCI +/- impella with Dr. Pennington vs redo CABG with Dr. Eden. Coronary CTA completed one aorto-coronary graft (to PDA) appears patent, all others occluded from their origins. [place] coronary arteries with diffuse severe atherosclerotic changes and stenoses (>75%). Severe obstructive disease and extensive amount of plaque. Patient too high risk for 3rd redo CABG d/t no available conduits. S/p - IABP placement (removed post procedure) Scoring balloon angioplasty of the proximal-mid LAD with a 3.0 x 20 mm Scoreflex balloon up to 18 lane , PTCA of the proximal LCx ISR with a 3.5 x 12 mm NC Emerge balloon up to 12 lane. IC lithotripsy of the proximal-mid LAD with a 3.0 x 12 mm Shockwave C2+ balloon (60 pulses delivered). IC lithotripsy of the proximal LCx with a 3.0 x 12 mm Shockwave C2+ balloon (60 pulses delivered). Successful IVUS guided PCI of the LMT into proximal LAD with a 3.5 x 28 mm Xience Skypoint EES (post dilated with a 3.5 mm NC balloon up to 18 lane in the proximal LAD and a 4.5 mm NC balloon up to 16 lane in the LMT). Successful IVUS guided PCI of the proximal LAD into mid LAD with a 3.0 x 33 mm Xience Skypoint EES (post dilated with a 3.0 mm NC balloon up to 16 lane in the mid LAD). Kissing balloon inflation of the LMT-LAD-LCx bifurcation with a 3.5 x 20 mm Emerge balloon in the LAD and a 3.5 x 20 mm Agent DCB in the proximal LCx up to 12 lane each for 75 seconds. POT of the LMT with a 4.5 x 12 mm NC balloon up to 20 lane. PLAN AND RECOMMENDATIONS: Aspirin 81 mg daily DAPT Plavix 75mg daily AC no Beta Jana: Atenolol 50 mg daily -> reduced to 12.5 mg daily ACEI/ARB/ARNIno SGLT2 inhibitor no Diuretic: no Aldosterone antagonist: no Statin Lipitor 80mg daily and repatha Amlodipine 2.5mg daily on hold d/t soft SBP, resume when able Imdur 60 mg daily (attempted to increase to 90 but patient became hypotensive and lightheaded) Device therapy: no THINGS TO DO/COMMUNICATE -Too high risk for 3rd redo CABG --Optimize antianginals and GDMT -Follow-up appointments requested -Stable for discharge Consults: None Major Procedure or Operation: Cardiac cath: 04/08/2024 Impression: Severe triple vessel CAD with occ (more content not included)... Normal [facility] ECG COMPLETEon 04-08-2024 ECG COMPLETE Ventricular Rate : 6 0 BPM Atrial Rate : 60 BPM P-R Interval : 168 ms QRS Duration : 92 ms Q-T Interval : 460 ms QTC Calculation(Bazett) : 460 ms Calculated P [place] : 46 degrees Calculated R [place] : 29 degrees Calculated T [place] : 86 degrees NORMAL SINUS RHYTHM NONSPECIFIC ST AND T WAVE ABNORMALITY ABNORMAL ECG Confirmed by GUERO ALVAREZ MD ([id number]) on 04/16/2024 9:56:47 PM NAME : CHLOE WILCOX PID : [id number] : 1950 Gender : Male Race : ORD : [id number] Procedure Date : Apr 08 2024 16:19:48 Edit Date : Apr 16 2024 21:56:48 Diagnosis: NORMAL SINUS RHYTHM NONSPECIFIC ST AND T WAVE ABNORMALITY ABNORMAL ECG Confirmed by GUERO ALVAREZ MD ([id number]) on 04/16/2024 9:56:47 PM Test Reason : Chest Pain Location : 372 : J72 J72-16 Overread By : GUERO ALVAREZ MD Edited By : GUERO ALVAREZ MD Referred By : , Acquired by : THOR GIVENS Normal [facility] ECG COMPLETE Ventricular Rate : 5 7 BPM Atrial Rate : 57 BPM P-R Interval : 166 ms QRS Duration : 90 ms Q-T Interval : 464 ms QTC Calculation(Bazett) : 451 ms Calculated P [place] : 48 degrees Calculated R [place] : 56 degrees Calculated T [place] : 87 degrees SINUS BRADYCARDIA OTHERWISE NORMAL ECG Confirmed by RADHA QUEZADA MD ([id number]) on 04/15/2024 1:51:47 PM NAME : CHLOE WILCOX PID : [id number] : 1950 Gender : Male Race : ORD : [id number] Procedure Date : Apr 08 2024 09:34:41 Edit Date : Apr 15 2024 13:51:51 Diagnosis: SINUS BRADYCARDIA OTHERWISE NORMAL ECG Confirmed by RADHA QUEZADA MD ([id number]) on 04/15/2024 1:51:47 PM Test Reason : Pre-OP Location : 23 : [id number] Overread By : RADHA QUEZADA MD Edited By : RADHA QUEZADA MD Referred By : , Acquired by : [id number], Normal [facility] HISTORY PHYSICALon HISTORY PHYSICAL HNO ID: [id number] Author: KURTIS HASTINGS MD Service: Cardiovascular Medicine Author Type: Physician Type: H&P Filed: 04/08/2024 16:45 Note Text: [facility] HISTORY AND PHYSICIAL Chloe Wilcox [id number] Primary Care Physician: Primary Dialysis Chief Equipment Technician: Dr. Hastings Admit Source: Direct Admit from laborer pipeline Admit Date: 04/08/2024 LOS: 0 PRIMARY SERVICE: Cardiology: Interventional ATTENDING PHYSICIAN: Dr. Hastings CHIEF COMPLAINT: Angina HPI: This is a 73 year old male who presents with exertional angina. He has a PMH of CAD 2011 redo CABG (SV-LAD/OM, SV-PDA), 2019- s/p PCI to LM-Cx 01/26/2021; 3rd redo sternotomy, homograft removal, AVR/Root replacement (Konect 25), CABGx3 (Lt. Radial - PDA, SV-OM1, SV-OM2) Valvular heart disease 1995 s/p homograft root replacement 2018 s/p TAVR (23mm S3) 01/26/2021 homograft removal, AVR/Root replacement (Konect 25), 07/2023 echo gradients 8/4mmHg HPL and LpA mutation- high intensity statin and repatha HFpEF 63% First degree AVB He was admitted 04/08/2024 for an elective LHC +/- PCI for new exertional chest pain (CCS grade II angina) where we found that all his prior surgical grafts are occluded (SVG > mid LAD, Svg > OM1, SVG > OM2 and left radial to rPDA) with severe triple vessel rosebud CAD. We attempted to engage the LM with a 6F XB 3.5 guide and the patient developed chest pain and anterior ST depressions. The cath was subsequently disengaged from the LM and the patient's chest pain resolved. PAST MEDICAL HISTORY: PAST MEDICAL HISTORY Diagnosis Date Aortic valve disorders Aortic valve disorders CAD (coronary artery disease) Hx of CABG Hyperlipidemia Presence of stent in coronary artery TIA (transient ischemic attack) Urinary retention PAST SURGICAL HISTORY: PAST SURGICAL HISTORY Procedure Laterality Date COLSC FLX W/RMVL OF TUMOR POLYP LESION SNARE TQ 09/01/05 CORONARY ARTERY BYP W/VEIN AND ARTERY GRAFT 3 VEIN 2010 CABG, three grafts HEMORRHOIDECTOMY PAST SURGICAL HISTORY OF 1967 excision of chest lump PAST SURGICAL HISTORY OF 12/03/1995 Minimally invasive incision; aortic valve replacement with a PAST SURGICAL HISTORY OF 04/23/2018 TAVR FAMILY HISTORY: FAMILY HISTORY Problem Relation Age of Onset Cancer Father Colon Cancer Father from cancer other (Myocardial infarction) Mother 70 other (Myocardial infarction) Sister 70 CABG other (Myocardial infarction) Brother 62 CABG age 55, coronary stents other (Myocardial infarction) Maternal Grandmother 92 other (Brain aneurysm) Paternal Grandmother 70 other (CABG) Brother other (coronary stents) Brother other (coronary stents) Brother carotid artery disease SOCIAL HISTORY: Social History Tobacco Use Smoking status: Never Smokeless tobacco: Never Substance Use Topics Alcohol use: Yes Comment: occ Drug use: No MEDICATIONS: Prior to Admission Medications: isosorbide mononitrate ER (IMDUR) 30 mg 24 hr tabletTake 1 tablet by mouth once daily.Disp: 30 tabletRfl: 0 clopidogrel (PLAVIX) 75 mg tabletTake 1 tablet by mouth once daily.Disp: 90 tabletRfl: 3 atorvastatin (LIPITOR) 80 mg tabletTake 1 tablet by mouth daily at bedtime.Disp: 90 tabletRfl: 3 amLODIPine (NORVASC) 2.5 mg tabletTake 1 tablet by mouth once daily.Disp: 90 tabletRfl: 3 Ipratropium [place] (ATROVENT) 21 mcg (0.03 %) nasal sprayDisp: Rfl: Multivitamin capsuleTake 1 capsule by mouth once daily. Disp: Rfl: nitroglycerin sublingual (NITROQUICK) 0.4 mg SL tabletDissolve 1 tablet under the tongue every 5 minutes as needed.Disp: 25 tabletRfl: 1 evolocumab 140 mg/mL subcutaneous pen injector (REPATHA SURECLICK)Inject 140 mg subcutaneously every 2 weeks.Disp: 2 mLRfl: 3 Amoxicillin 500 mg tabletTake 4 tablets by mouth as needed. Prior to dental proceduresDisp: Rfl: acetaminophen (TYLENOL) 325 mg tablet2 tablets by ORAL/FEEDING TUBE route every 4 hours as needed for pain.Disp: 50 tabletRfl: 0 cetirizine (ZYRTEC) 10 mg tabletTake 10 mg by mouth as needed.Disp: Rfl: albuterol HFA (VENTOLIN HFA) 90 mcg/actuation inhalerInhale 2 Puffs as instructed every 4 hours as needed for Wheezing/Shortness of Breath.Disp: 1 InhalerRfl: 0 Current Facility-Administered Medications Medication Dose Route Frequency acetaminophen 650 mg tab(s) (TYLENOL) 650 mg ORAL q 4 H PRN ondansetron (PF) 4 mg injection (ZOFRAN) 4 mg INTRAVENOUS PRN ALLERGIES: ALLERGIES Allergen Reactions Ragweed Pollen Itching, Other: See Comments COMPLETE REVIEW OF SYSTEMS: 10 point ROS completed and negative other than listed above. PHYSICAL EXAM: BP 124/66 Pulse 61 Temp 36.7 ?C (98 ?F) (Tympanic) Resp 16 Wt 78.5 kg (173 lb) SpO2 97% BMI 29.70 kg/m? General: Well developed and well nourished appearance. No acute distress. Skin: No rash on chest, arms or legs. Warm, dry. Head/Eyes: Sclera clear, normal conjunctiva. EOMI. Mouth/Pharyn (more content not included)... Normal [facility]07-[facility] CHLOE [facility]IL[facility] ([id number]) 1950 M Date Time Provider Department 04/07/24 KURTIS HASTINGS During your visit today, we recorded the following information about you: Modesta Paredes RN 04/07/2024 12:35 PM Signed CARDIOVASCULAR LAB INSTRUCTIONS: Readiness to Learn: Cognitive Ability: Alert and oriented Motivation To Learn: Interested Family/Significant Other Support: Unable to assess - Family not present Instruction Provided To: Patient Patient Learns Best By: Verbal Instruction Factors Affecting Learning: None Physical Limitations Affecting Learning: None Learning Response: Procedure: Left Heart Diagnostic Pre procedure education topics: Arrival time/NPO Status/Medications/Tr bobbi Instructions/Restrict ions Patient/Family Response Evaluation: Verbalizes understanding Follow Up Plan and Medication: As directed by physician Instruction/Supplemen shannan Material Given: Cardiac catheterization instructions, procedure information, hospital information, hotel information. Instructed By Modesta Paredes, RN, RN. In Department of CARDIOLOGY. Allergies As of Date: 04/07/2024 Noted Allergy Reaction RAGWEED POLLEN 06/19/1984 9 - Itching 14 - Other: See Comments Date Reviewed: 03/16/2023 Reviewed by: Cinthya Carvajal LPN - Fully Assessed Reason for Visit: Patient Education [91] Prescriptions as of 04/07/2024 - nitroglycerin sublingual (NITROQUICK) 0.4 mg SL tablet Dissolve 1 tablet under the tongue every 5 minutes as needed. - isosorbide mononitrate ER (IMDUR) 30 mg 24 hr tablet Take 1 tablet by mouth once daily. - evolocumab 140 mg/mL subcutaneous pen injector (REPATHA SURECLICK) Inject 140 mg subcutaneously every 2 weeks. - clopidogrel (PLAVIX) 75 mg tablet Take 1 tablet by mouth once daily. - atorvastatin (LIPITOR) 80 mg tablet Take 1 tablet by mouth daily at bedtime. - amLODIPine (NORVASC) 2.5 mg tablet Take 1 tablet by mouth once daily. - Ipratropium [place] (ATROVENT) 21 mcg (0.03 %) nasal spray - Amoxicillin 500 mg tablet Take 4 tablets by mouth as needed. Prior to dental procedures - acetaminophen (TYLENOL) 325 mg tablet 2 tablets by ORAL/FEEDING TUBE route every 4 hours as needed for pain. - cetirizine (ZYRTEC) 10 mg tablet Take 10 mg by mouth as needed. - albuterol HFA (VENTOLIN HFA) 90 mcg/actuation inhaler Inhale 2 Puffs as instructed every 4 hours as needed for Wheezing/Shortness of Breath. - Multivitamin capsule Take 1 capsule by mouth once daily. 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] 02/18/2018 Status post transcatheter aortic valve replacem*04/23/2018 Nonrheumatic aortic valve stenosis [I35.0] 04/23/2018 Hyperlipidemia [E78.5] 04/23/2018 Coronary artery disease involving rosebud martinez*04/23/2018 TIA (transient ischemic attack) [G45.9] 04/23/2018 Obesity, Class I, BMI 30-34.9 [E66.811] 04/24/2018 Prostate disorder [N42.9] 04/26/2018 Discharge planning issues [Z75.8] 01/25/2021 Pre-op testing [Z01.818] 01/25/2021 On mechanically assisted ventilation (HCC) [Z99*01/26/2021 01/28/2021 Postoperative pain [G89.18] 01/26/2021 Coagulopathy (HCC) [D68.9] 01/26/2021 01/27/2021 Acute blood loss anemia [D62] 01/26/2021 01/28/2021 Postoperative hypotension [I95.81] 01/26/2021 01/28/2021 Atelectasis [J98.11] 01/27/2021 Paroxysmal atrial fibrillation (HCC) [I48.0] 01/28/2021 Hypervolemia [E87.70] 01/29/2021 SUMMARY [Z76.89] 01/31/2021 Encounter Status:Closed by MODESTA PAREDES RN on 04/07/24 [facility] ECHOon 04-04-2024 Echocardiography Echocardiography Report: Transthoracic Echo [facility] Date of service: 04/04/2024 2:53:31 PM [facility] Ordering physician: YOAN ADAM Indication: Evaluation of prosthetic valve with change in clinical status Technologist: Amelia Zavaleta [facility] Interpreting physician: Moe Joseph MD PATIENT: Name: MR. CHLOE WILCOX : 1950 Age: 73 years Gender: M Previous cardiovascular interventions: Aortic valve replacement (1995) CABG (2010) Aortic valve replacement (2018) PCI (2019) CABG (02/08) Biobentall (02/08) Primary rhythm: sinus. Height: 162.60 cm BSA: 1.90 m Weight: 80.29 kg BMI: 30.4 kg/m Heart rate 65 bpm Blood pressure 135/63 mmHg Color Doppler was utilized to interrogate the cardiac valves assessed and spectral Doppler was utilized to determine the flow velocities and pressure gradients reported in this exam. Myocardial strain analysis was performed in this exam to aid in the assessment of cardiac function. MEASUREMENTS: Value Indexed Normal Max aortic dimension 3.6 cm Ao < 3.8 Left atrial volume 57 ml (biplane A-L) 30 ml/m Presley <= 34 LV ID (diastole) 4.4 cm (2D) 2.32 cm/m LV ID (systole) 2.9 cm (2D) 1.54 cm/m IVS, leaflet tips 1.2 cm (2D) Posterior wall thickness 1.2 cm (2D) Left ventricular mass 194 g (2D) 102 g/m Global peak long strain -18.4 % LV stroke volume 65 ml (2D biplane) LVOT stroke volume 111 ml 60 ml/m LV end diastolic volume 96 ml (2D biplane) 50.4 ml/m 34<=EDVi<75 LV end systolic volume 31 ml (2D biplane) 16.3 ml/m Ejection Fraction 68 % (2D biplane) EF > 52 FINDINGS: LEFT VENTRICLE The left ventricle is normal in size. There is mild concentric left ventricular hypertrophy. Left ventricular systolic function is normal globally. Global LV myocardial strain is normal. Grade I left ventricular diastolic dysfunction. Mitral annular lateral E/e': 8.1. Mitral annular septal E/e': 10.9. Wall Motion: All scored segments are normal. RIGHT VENTRICLE The right ventricle is normal in size. Right ventricular systolic function is normal. RV systolic tissue Doppler velocity is 11.6 cm/s. Tricuspid annular displacement is 1.8 cm. Estimated right ventricular systolic pressure is 25 mmHg plus right atrial pressure. Estimated right atrial pressure is not included as the IVC was not seen. LEFT ATRIUM The left atrial cavity is normal in size. RIGHT ATRIUM The right atrial cavity is normal in size. MITRAL VALVE The mitral valve leaflets are structurally normal. There is trace mitral valve regurgitation. The pressure half time is 75 msec. The peak mitral E/A ratio is 0.91. The mitral flow deceleration time is 259 msec. TRICUSPID VALVE The tricuspid valve leaflets are structurally normal. There is trace tricuspid valve regurgitation. AORTIC VALVE Konect prosthetic valve size #25. There is no aortic valve regurgitation. The peak gradient is 14 mmHg (peak velocity = 188.0 cm/s). The mean gradient is 6 mmHg. The LVOT mean velocity is 70.6 cm/s. The LVOT diameter is 2.5 cm. The aortic VTI is 35.0 cm. The mean velocity in the aortic valve is 113.0 cm/s. The dimensionless valve index is 0.65. AV area is 3.18 cm (1.67 cm /m ) by continuity, VTI. The LVOT stroke volume index is 60 ml/m . PULMONIC VALVE There is trace pulmonic valve regurgitation. There is no thickening. AORTA The visualized aorta is normal in size. Measurements - Mid ascending aorta 3.6 cm. PULMONARY ARTERIES The pulmonary arteries are unseen or not interrogated. PERICARDIUM There is no pericardial effusion. CONCLUSIONS: - Exam indication: Evaluation of prosthetic valve with change in clinical status - The left ventricle is normal in size. There is mild concentric left ventricular hypertrophy. Left ventricular systolic function is normal. EF = 68 5% (2D biplane) Grade I left ventricular diastolic dysfunction. - The right ventricle is normal in size. Right ventricular systolic function is normal. 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 There is no aortic valve regurgitation. The peak gradient is 14 mmHg, the mean gradient is 6 mmHg and the dimensionless valve index is 0.65. - Exam was compared with the prior CC echocardiographic exam performed on 08/06/23 (Jayne). Prior AV pk/mn gradients measured at 8/3 mmHg. Gradients are measuring slightly higher today. * * * Final * * * CC [facility] : [id number] amicsSISUID Normal [facility] CBC panel Auto (Bld)on 04-02 Erythrocyte distribution width (RBC) [Ratio] 13.1 % Normal 11.5-15.0 [facility] Comment on above: Order Comment: Speci men Type: BLOOD SPECIMEN Ordering Facility: [facility] Address: [address] [place] [address] Performed By: #### 1 4979-9 #### [facility] CLIA [id number] [address] [place] [address] [place] Hematocrit (Bld) [Volume fraction] 43.2 % Normal 39.0-51.0 [facility] Comment on above: Order Comment: Speci men Type: BLOOD SPECIMEN Ordering Facility: [facility] Address: [address] [place] [address] Performed By: #### 1 4979-9 #### [facility] CLIA [id number] [address] [place] [address] [place] Hemoglobin (Bld) [Mass/Vol] 14.3 g/dL Normal 13.0-17.0 [facility] Comment on above: Order Comment: Speci men Type: BLOOD SPECIMEN Ordering Facility: [facility] Address: [address] [place] [address] Performed By: #### 1 4979-9 #### [facility] CLIA [id number] [address] [place] [address] [place] MCH (RBC) [Entitic mass] 29.8 pg Normal 26.0-34.0 [facility] Comment on above: Order Comment: Speci men Type: BLOOD SPECIMEN Ordering Facility: [facility] Address: [address] [place] [address] Performed By: #### 1 4979-9 #### [facility] CLIA [id number] [address] [place] [address] [place] MCHC (RBC) [Mass/Vol] 33.1 g/dL Normal 30.5-36.0 [facility] Comment on above: Order Comment: Speci men Type: BLOOD SPECIMEN Ordering Facility: [facility] Address: [address] [place] [address] Performed By: #### 1 4979-9 #### [facility] CLIA [id number] [address] [place] [address] [place] MCV (RBC) [Entitic vol] 90.0 fL Normal 80.0-100.0 [facility] Comment on above: Order Comment: Speci men Type: BLOOD SPECIMEN Ordering Facility: [facility] Address: [address] [place] [address] Performed By: #### 1 4979-9 #### [facility] CLIA [id number] [address] [place] [address] [place] Nucleated RBC (Bld) [#/Vol] 10*3/uL Normal <0.01 [facility] Comment on above: Order Comment: Speci men Type: BLOOD SPECIMEN Ordering Facility: [facility] Address: [address] [place] [address] Performed By: #### 1 4979-9 #### [facility] CLIA [id number] [address] [place] [address] [place] Platelet mean volume (Bld) [Entitic vol] 9.9 fL Normal 9.0-12.7 [facility] Comment on above: Order Comment: Speci men Type: BLOOD SPECIMEN Ordering Facility: [facility] Address: [address] [place] [address] Performed By: #### 1 4979-9 #### [facility] CLIA [id number] [address] [place] [address] [place] Platelets (Bld) [#/Vol] 224 10*3/uL Normal 150-400 [facility] Comment on above: Order Comment: Speci men Type: BLOOD SPECIMEN Ordering Facility: [facility] Address: [address] [place] [address] Performed By: #### 1 4979-9 #### [facility] CLIA [id number] [address] [place] [address] [place] RBC (Bld) [#/Vol] 4.80 10*6/uL Normal 4.20-6.00 [facility] Comment on above: Order Comment: Speci men Type: BLOOD SPECIMEN Ordering Facility: [facility] Address: [address] [place] [address] Performed By: #### 1 4979-9 #### [facility] CLIA [id number] [address] [place] [address] [place] WBC (Bld) [#/Vol] 7.50 10*3/uL Normal 3.70-11.00 [facility] Comment on above: Order Comment: Speci men Type: BLOOD SPECIMEN Ordering Facility: [facility] Address: [address] [place] [address] Performed By: #### 1 4979-9 #### [facility] CLIA [id number] [address] [place] [address] [place] Comprehensive metabolic 2000 panelon 04-02-2024 Albumin [Mass/Vol] 4.1 g/dL Normal 3.9-4.9 [facility] Comment on above: Order Comment: Speci men Type: BLOOD SPECIMENOrdering Facility: [facility] Address: [address] [place] [address] Performed By: #### 2 4331-1 ####[facility] [id number] [place] [address] [place] [facility] [id number] [place] [address] [place]#### 00065-4 ####[facility] [id number] [place] [id number] [place] ALP [Catalytic activity/Vol] 100 U/L Normal 38-113 [facility] Comment on above: Order Comment: Speci men Type: BLOOD SPECIMENOrdering Facility: [facility] Address: [address] [place] [address] Performed By: #### 2 4331-1 ####[facility] [id number] [address] [address] [place] [facility] LABIA [id number] [place] [id number] [place]#### 32466-6 ####[facility] [id number] [address] [address] [place] ALT [Catalytic activity/Vol] 29 U/L Normal 10-54 [facility] Comment on above: Order Comment: Speci men Type: BLOOD SPECIMENOrdering Facility: [facility] Address: [address] [place] [address] Performed By: #### 2 4331-1 ####[facility] [id number] [place] [id number] [place] [facility] LABIA [id number] [place] [id number] [place]#### 21386-5 ####[facility] [id number] [address] [address] [place] Anion gap [Moles/Vol] 9 mmol/L Normal 8-15 [facility] Comment on above: Order Comment: Speci men Type: BLOOD SPECIMENOrdering Facility: [facility] Address: [address] [place] [address] Performed By: #### 2 4331-1 ####[facility] [id number] [address] [address] [place] [facility] LABCLIA [id number] [address] [address] [place]#### 11207-9 ####[facility] [id number] [place] [id number] [place] AST [Catalytic activity/Vol] 31 U/L Normal 14-40 [facility] Comment on above: Order Comment: Speci men Type: BLOOD SPECIMENOrdering Facility: [facility] Address: [address] [place] [address] Performed By: #### 2 4331-1 ####[facility] [id number] [place] [address] [place] [facility] [id number] [place] [address] [place]#### 22586-5 ####[facility] [id number] [place] [address] [place] Bilirubin [Mass/Vol] 0.7 mg/dL Normal 0.2-1.3 [facility] Comment on above: Order Comment: Speci men Type: BLOOD SPECIMENOrdering Facility: [facility] Address: [address] [place] [address] Performed By: #### 2 4331-1 ####[facility] [id number] [place] [address] [place] [facility] [id number] [place] [address] [place]#### 34249-4 ####[facility] [id number] [place] [id number] [place] Calcium [Mass/Vol] 9.3 mg/dL Normal 8.5-10.2 [facility] Comment on above: Order Comment: Speci men Type: BLOOD SPECIMENOrdering Facility: [facility] Address: [address] [place], [place] [address] Performed By: #### 2 4331-1 ####[facility] [id number] [address] [address] [place] [facility] LABIA [id number] [address] [address] [place]#### 78192-2 ####[facility] [id number] [address] [address] [place] Chloride [Moles/Vol] 102 mmol/L Normal 98-107 [facility] Comment on above: Order Comment: Speci men Type: BLOOD SPECIMENOrdering Facility: [facility] Address: [address] [place] [address] Performed By: #### 2 4331-1 ####[facility] [id number] [place] [id number] [place] [facility] [id number] [place] [id number] [place]#### 51513-9 ####[facility] [id number] [address] [address] [place] CO2 [Moles/Vol] 29 mmol/L Normal 22-30 [facility] Comment on above: Order Comment: Speci men Type: BLOOD SPECIMENOrdering Facility: [facility] Address: [address] [place] [address] Performed By: #### 2 4331-1 ####[facility] [id number] [address] [address] [place] [facility]IA [id number] [place] [id number] [place]#### 35847-8 ####[facility] [id number] [address] [address] [place] Creatinine [Mass/Vol] 1.02 mg/dL Normal 0.73-1.22 [facility] Comment on above: Order Comment: Speci men Type: BLOOD SPECIMENOrdering Facility: [facility] Address: [address] [place] [address] Performed By: #### 2 4331-1 ####[facility] [id number] [place] [address] [place] [facility] [id number] [place] [address] [place]#### 60322-2 ####[facility] [id number] [address] [place] Creatinine and Glomerular filtration rate.predicted panel (S/P/Bld) 78 mL/min/1.73m??? Normal >=60 [facility] Comment on above: Order Comment: Speci men Type: BLOOD SPECIMENOrdering Facility: [facility] Address: [address] [place] [address] Result Comment: Eladia mated Glomerular Filtration Rate (eGFR) is calculated using the 2020 CKD-EPI creatinine equation. This equation utilizes serum creatinine, sex, and age as parameters. The creatinine assay has traceable calibration to isotope dilution-mass spectrometry. Refer to KDIGO guidelines for clinical interpretation. In patients with unstable renal function, e.g. those with acute kidney injury, the eGFR may not accurately reflect actual GFR. Performed By: #### 2 4331-1 ####[facility] [id number] [place] [address] [place] [facility] LABIA [id number] [place] [address] [place]#### 96159-7 ####[facility] [id number] [place] [address] [place] Glucose [Mass/Vol] 93 mg/dL Normal 74-99 [facility] Comment on above: Order Comment: Speci men Type: BLOOD SPECIMENOrdering Facility: [facility] Address: [address] [place] [address] Result Comment: The [place] Diabetes Association (ADA) provides guidance for cutoff values for fasting glucose and random glucose. The ADA defines fasting as no caloric intake for at least 8 hours. Fasting plasma glucose results between 100 to 125 mg/dL indicate increased risk for diabetes (prediabetes). Fasting plasma glucose results greater than or equal to 126 mg/dL meet the criteria for diagnosis of diabetes. In the absence of unequivocal hyperglycemia, results should be confirmed by repeat testing. In a patient with classic symptoms of hyperglycemia or hyperglycemic crisis, random plasma glucose results greater than or equal to 200 mg/dL meet the criteria for diagnosis of diabetes. Reference: Standards of Medical Care in Diabetes 2016, [place] Diabetes Association. Diabetes Care. 2016.39(Suppl 1). Performed By: #### 2 4331-1 ####[facility] [id number] [address] STATES [facility] [id number] [place] [address] [place]#### 13318-2 ####[facility] [id number] [place] [address] [place] Potassium [Moles/Vol] 4.9 mmol/L Normal 3.7-5.1 [facility] Comment on above: Order Comment: Speci men Type: BLOOD SPECIMENOrdering Facility: [facility] Address: [address] [place] [address] Performed By: #### 2 4331-1 ####[facility] [id number] [place] [address] [place] [facility] [id number] [place] [address] [place]#### 26076-0 ####[facility] [id number] [place] [address] [place] Protein [Mass/Vol] 6.7 g/dL Normal 6.3-8.0 [facility] Comment on above: Order Comment: Speci men Type: BLOOD SPECIMENOrdering Facility: [facility] Address: [address] [id number] Performed By: #### 2 4331-1 ####[facility] [id number] [place] [id number] [place] [facility] LABIA [id number] [place] [address] [place]#### 57607-8 ####[facility] [id number] [place] [address] [place] Sodium [Moles/Vol] 140 mmol/L Normal 136-144 [facility] Comment on above: Order Comment: Speci men Type: BLOOD SPECIMENOrdering Facility: [facility] Address: [address] [place], [place] [address] Performed By: #### 2 4331-1 ####[facility] [id number] [place] [id number] [place] [facility] LABIA [id number] [place] [address] [place]#### 53380-0 ####[facility] [id number] [place] [id number] [place] Urea nitrogen [Mass/Vol] 19 mg/dL Normal 9-24 [facility] Comment on above: Order Comment: Speci men Type: BLOOD SPECIMENOrdering Facility: [facility] Address: [address] [address] Performed By: #### 2 4331-1 ####[facility] [id number] [place] [id number] [place] [facility] LABCLIA [id number] [place] [id number] [place]#### 13978-7 ####[facility] [id number] [place] [address] [place] LPa SerPl-mCncon 04-02-2024 Lipoprotein a [Mass/Vol] mg/dL High <30 [facility] Comment on above: Order Comment: Speci men Type: BLOOD SPECIMENOrdering Facility: [facility] Address: [address] [place] [address] Result Comment: Resu lt rechecked. Performed By: #### 1 0835-7 ####[facility] [id number] [address] [place] Lipid 1996 panelon 5 Cholesterol [Mass/Vol] 95 mg/dL Normal <200 [facility] Comment on above: Order Comment: Speci men Type: BLOOD SPECIMENOrdering Facility: [facility] Address: [address] [place] [address] Result Comment: <200 mg/dL, Desirable 200-239 mg/dL, Borderline high >239 mg/dL, High Performed By: #### 2 4331-1 ####[facility] [id number] [address] STATES OF [facility] [id number] [place] [address] [place]#### 28397-4 ####[facility] [id number] [address] [place] Cholesterol in HDL [Mass/Vol] 43 mg/dL Normal >39 [facility] Comment on above: Order Comment: Speci men Type: BLOOD SPECIMENOrdering Facility: [facility] Address: [address] [place] [address] Result Comment: 40-5 9 mg/dL, Acceptable >59 mg/dL, High: Negative risk factor for coronary heart disease <40 mg/dL, Low: Positive risk factor for coronary heart disease Performed By: #### 2 4331-1 ####[facility] [id number] [address] OF [facility] [facility] [id number] [address]#### 27855-9 ####[facility] [id number] [address] OF [place] Cholesterol in LDL [Mass/Vol] 30 mg/dL Normal <100 [facility] Comment on above: Order Comment: Speci men Type: BLOOD SPECIMENOrdering Facility: [facility] Address: [address] [place] [address] Result Comment: <100 mg/dL, Optimal 100-129 mg/dL, Near optimal/above optimal 130-159 mg/dL, Borderline high 160-189 mg/dL, High >189 mg/dL, Very high Secondary prevention optimal LDL Cholesterol levels are recommended to be < 70 mg/dL Performed By: #### 2 4331-1 ####[facility] [id number] [address] OF [facility] [id number] [address] OF [facility]#### 36680-8 ####[facility] [id number] [address] [place] Cholesterol in LDL/Cholesterol in HDL [Mass ratio] 0.70 {ratio} Normal <2.54 [facility] Comment on above: Order Comment: Speci men Type: BLOOD SPECIMENOrdering Facility: [facility] Address: [address] [place] [address] Result Comment: Edward nickerson: 1. National Cholesterol Education Program ATP III Guideline At-A-Glance Quick Desk Reference: National Heart, Lung, and Blood [place]. National Institutes of Health. 2001: NIH Publication No. 01-3305. 2. An International Atherosclerosis Society position paper: global recommendations for the management of dyslipidemia: executive summary, Atherosclerosis. 2014: 232(2):410-413. Performed By: #### 2 4331-1 ####[facility] [id number] [address] LABCLIA [id number] [address] [place]#### 82865-4 ####[facility] [id number] [place] [id number] [place] Cholesterol in VLDL [Mass/Vol] 22 mg/dL Normal <30 [facility] Comment on above: Order Comment: Speci men Type: BLOOD SPECIMENOrdering Facility: [facility] Address: [address] [place] [address] Performed By: #### 2 4331-1 ####[facility] [id number] [address] LABCLIA [id number] [address] [place]#### 55482-4 ####[facility] [id number] [address] [place] Cholesterol non HDL [Mass/Vol] 52 mg/dL Normal <130 [facility] Comment on above: Order Comment: Speci men Type: BLOOD SPECIMENOrdering Facility: [facility] Address: [address] [place] [address] Result Comment: <130 mg/dL, Optimal 130-159 mg/dL, Near optimal/above optimal 160-189 mg/dL, Borderline high 190-219 mg/dL, High >219 mg/dL, Very high Secondary prevention optimal non HDL Cholesterol levels are recommended to be <100 mg/dL Performed By: #### 2 4331-1 ####[facility] [id number] [address] LABCLIA [id number] [place] [id number] [place]#### 15324-2 ####[facility] [id number] [place] [address] [place] Cholesterol.total/Chol esterol in HDL [Mass ratio] 2.21 {ratio} Normal <5.10 [facility] Comment on above: Order Comment: Speci men Type: BLOOD SPECIMENOrdering Facility: [facility] Address: [address] [place], [place] [address] Performed By: #### 2 4331-1 ####[facility] [id number] [address] STATES [facility] [id number] [place] [address] [place]#### 08444-5 ####[facility] [id number] [place] [address] [place] FASTING TIME 12 hrs Normal [facility] Comment on above: Order Comment: Speci men Type: BLOOD SPECIMENOrdering Facility: [facility] Address: [address] [place] [address] Performed By: #### 2 4331-1 ####[facility] [id number] [place] [address] [place] [facility] LABIA [id number] [place] [address] [place]#### 94226-0 ####[facility] [id number] [place] [id number] [place] Triglyceride [Mass/Vol] 110 mg/dL Normal <150 [facility] Comment on above: Order Comment: Speci men Type: BLOOD SPECIMENOrdering Facility: [facility] Address: [address] [place], [place] [address] Result Comment: <150 mg/dL, Normal 150-199 mg/dL, Borderline high 200-499 mg/dL, High >499 mg/dL, Very high Performed By: #### 2 4331-1 ####[facility] [id number] [address] [address] [facility] LABIA [id number] [address] [address] [facility]#### 43405-5 ####[facility] [id number] [place] [id number] [facility] Inital Evaluation (1) - PTon 03-21-2024 Inital Evaluation (1) - PT [facility] Physical Therapy [facility] [address] [place] [address] [address] [place] [address] / REHABILITATION SERVICES INITIAL EVALUATION MR#: [id number] Acct: [id number] Name: CHLOE WILCOX Rep #: [id number] : 1950 73 From: Jeremy Medley DPT Referring Dr.: Tino Ac MD Status: REG RCR Insurance: MEDICARE PART A B [facility] Patient's Visit Information Visit Information Visit Information: CHLOE WILCOX is a 73 year old M referred to Physical Therapy by Dr. Tino Ac MD with a diagnosis of L RTC tear. Date of Evaluation: 03/17/24 Physical Therapist: Jeremy Medley DPT Visit Plan Frequency: 2-3x /Week Duration: 6 Weeks Plan: 1) DFM biceps and supraspinatus insertion 2) Inferior glides iwth shoulder abd and flexion motions 3) scapular and periscapular strengthening 4) once tolerating add in cuff stability/strengtheni ng Subjective Subjective: Pt. is here today for his initial evaluation with diagnosis of L RTC. Pt. saw his physician whom felt he should start with conservative care then follow back up with him if not improving. Pt. reports increased pain at lateral aspect of his subacromial space. Pt. has no NT, but does have pain that radiates into his deltoid region. pt. reports pain with lifting, reaching and ADLs. He does play softball, but has had to refrain from this due to his arm bothering him. Pt. reports increased pain with sleeping on this side as well. Pt. is hopeful to reduce symptoms in order to get back to all recreational activities without limitatons. Pain L shoulder: Pain Intensity (Out of 10): 2 Pain Intensity Range: 0 and 5 Objective Objective: POSTURE: pt. has fairly normal posture in stance. PALPATION: pt. has mild increase in symptoms with subacromial spcae. He does have pain at biceps as well. NEURO: normal ROM: L shoulder: AROM: flexion 150deg increase NW, abd 140deg increase NE, functional ER C4 increase NW, functional IR L3 incfrease NW. PROM: Pain at end ranges, but close to full motion. MMT: Pt. has 5/5 strength except, abd 4/5 increase NW, flexion 4/5 increase NW, ER 4/5 increase NW. Special Tests L Shoulder Drop Sign - IS Test: Negative L Shoulder Empty Can - SS: Positive L Shoulder Belly Press - SupScap: Negative L Shoulder Neer - Impingement: Positive L Shoulder Seo Silvio - Impingement: Positive L Shoulder Speeds Test - Labrum/Biceps: Positive Balance/Special Test Scores Quick DASH Score: 36.3625 Goals Goal 1:: LTG: Pt. to be I with HEP. Goal Time Frame: 4-6 Weeks Goal 2:: STG: pt. to sleep throughout the night without increase in symptoms. Goal Time Frame: 2-4 Weeks Goal 3:: LTG: Pt. to have symmetrical strength between BUEs. Goal Time Frame: 4-6 Weeks Goal 4:: LTG: Pt. to have full pain free L shoulder ROM. Goal Time Frame: 4-6 Weeks Goal 5:: LTG: Pt. to complete all ADls without increase in L shoulder pain. Goal Time Frame: 4-6 Weeks Rehabilitation Potential Physical Therapy Diagnosis: Pt. has signs and symptoms consistent with L RTC tear. Pt. has marked pain with lifting his arm and palpation of biceps and distal RTC insertion. He has limited ROM secondary to pain and limited OF use secondary to pain. Rehabilitation Potential: Good Anticipated Interventions Patient/Client Instruction: Educate patient on: Condition, Plan of Care, Risk Factors and Benefits of Fitness Program For the Purpose of:: To improve decision making, To facilitate caregiver knowledge, To improve self management, To prevent re-injury and To improve ability to perform tasks related to life management Therapeutic Exercise to Include: Strength training, Power training, Flexibilty training, Passive ROM, Active ROM and Scapular Strength/Stabilizatio n For the Purpose of:: To decrease pain, To increase ROM, To improve nutrient delivery to tissue, To increase oxygenation perfusion, To improve muscle performance and motor function and To improve ability to perform ADL's Manual Therapy Techniques to Include: Mobilization and Soft tissue mobilization Comment: DFM For the Purpose of:: To decrease pain, To increase ROM, To improve nutrient delivery to tissue, To increase oxygenation perfusion, To improve muscle performance and motor function, To decrease soft tissue restriction and To increase flexibility/ROM Ultrasound (thermal/non thermal): Yes For the Purpose of:: To decrease pain, To decrease swelling/inflammation and To increase ROM Text: Thank you for the opportunity to evaluate your patient. For Medicare and Medicare HMO plans, please review the plan of care and approve it. It will need to be FAXED BACK to us at [phone] for Medicare purposes. For Medicare only, by signing this I certify the plan of care. Please let me know if there are questions or concerns regarding this plan of care. Physician Signature: (more content not included)... Normal [facility] Upper Ext Joint Only(Routine )on 03-01-2024 Upper Ext Joint Only(Routine) [facility] Imaging Services [address] [place], [place] [id number] Upper Ext Joint Only(Routine) MR#: [id number] Acct: [id number] Name: CHLOE WILCOX Rep #: [id number] : 1950 M 73 From: Anthony Santiago MD PCP: Dr. Gatito Leon MD Status: REG CLI Study: Upper Ext Joint Only(Routine) Date of Exam: 0 03/01/24 Exam# [id number] Ordering Dr: Gatito Leon MD [id number] STUDY: MRI LEFT SHOULDER REASON FOR EXAM: Male, 73 years old. Failed PT, pain, LIMITED ROM LT SHOULDER TECHNIQUE: Standardized fat and water weighted pulse sequences were obtained in all 3 orthogonal planes. COMPARISON: Left shoulder radiographs dated 02/08/2024. FINDINGS: There is a moderate grade partial thickness articular surface tear of the distal supraspinatus tendon insertion, overall measuring 6 mm in length (coronal T2 series 6 images 9-10) and 7 mm in width (sagittal T2 series 7 image 17; axial PD series 8 image 8) Normal infraspinatus tendon. Normal subscapularis tendon. Normal teres minor tendon. Normal supraspinatus muscle. Normal infraspinatus muscle. Normal subscapularis muscle. Normal teres minor muscle. Normal glenohumeral articulation. Normal humeral head and visualized proximal humerus. Normal biceps labral complex. Normal intracapsular long biceps tendon. Normal labrum. Normal capsulo-ligamentous complex. Normal rotator interval. There is minimal acromioclavicular arthrosis. There is a Type II morphology (curved), with a neutral orientation. There is no subacromial-subdeltoi d bursal fluid. Normal visualized coracohumeral and coracoacromial ligaments. Normal quadrilateral space. Normal axillary space. Normal deltoid muscle. Normal trapezius muscle. MRI/Upper Ext Joint Only(Routine) IMPRESSION: 6 x 7 mm moderate grade partial thickness articular surface tear of the distal supraspinatus tendon insertion. Minimal acromioclavicular arthrosis. Electronically Signed: Anthony Santiago MD at 9:54 EST Reading Location ID and State: [address] [place] [address] , Service support , CC: Dr. Gatito Leon MD Manufacturing Management Associate: Signed Normal [facility] Shoulder min 2 Viewson 02-07 Shoulder min 2 Views [facility] Imaging Services [address] [place], [place] [id number] Shoulder min 2 Views MR#: [id number] Acct: [id number] Name: CHLOE WILCOX Rep #: [id number] : 1950 M 73 From: Carmen Luna MD PCP: Dr. Gatito Leon MD Status: REG CLI Study: Shoulder min 2 Views Date of Exam: 02/08/24 Exam# [id number] Ordering Dr: Gatito Leon MD [id number] EXAM: XR LEFT SHOULDER COMPLETE, 2 OR MORE VIEWS CLINICAL INDICATION: pain, chronic TECHNIQUE: Two or more views of the left shoulder. COMPARISON: November 02, 2021 chest radiograph. FINDINGS: BONES/JOINTS: Unremarkable. No acute fracture. No subluxation. Normal alignment. Preservation of the joint space. No sclerotic or destructive changes observed. SOFT TISSUES: Unremarkable. No soft tissue swelling or gas. No radiopaque foreign body. RAD/Shoulder min 2 Views IMPRESSION: Negative left shoulder x-rays. Electronically Signed: Carmen Luna MD at 1:51 EST , CC: Dr. Gatito Leon MD Manufacturing Management Associate: Signed Normal [facility] Shoulder min 2 Views [facility] Imaging Services [address] [place] [address] Shoulder min 2 Views MR#: [id number] Acct: [id number] Name: CHLOE WILCOX Rep #: [id number] : 1950 M 73 From: Ryan Ahumada DO PCP: Dr. Gatito Leon MD Status: REG CLI Study: Shoulder min 2 Views Date of Exam: 02/08/24 Exam# [id number] Ordering Dr: Gatito Leon MD [id number] INDICATION: pain, chronic EXAMINATION/TECHNIQUE : X-RAY - RIGHT XR Shoulder 4VIEWS COMPARISON: __ FINDINGS: SOFT TISSUES: No soft tissue swelling or gas. No radiopaque foreign body. BONES/JOINTS: No acute fracture or subluxation.. Normal alignment. Preservation of the joint space.. No sclerotic or destructive changes observed. RAD/Shoulder min 2 Views IMPRESSION: No acute bony injury. MRI may be utilized for evaluation of rotator cuff injury if suspected. Electronically Signed: Ryan Ahumada DO at 16:11 EST Reading Location ID and State: [facility] / [place] Tel [phone], Service support , CC: Dr. Gatito Leon MD Manufacturing Management Associate: Signed Normal [facility] OT D/C Summaryon 12-24-2023 OT D/C Summary [facility] Occupational Therapy [facility] [address] [place] [address] [address] [place] [address] / REHABILITATION SERVICES DISCHARGE SUMMARY MR#: [id number] Acct: [id number] Name: CHLOE WILCOX Rep #: [id number] : 1950 73 From: Courtney CHATTERJEE/Jeffery, CHT Referring Dr.: Dr. Gatito Leon MD Status: REG RCR Eval Date: Discharge Date: Discharge Summary D/C Summary: It has been my pleasure to treat CHLOE WILCOX under orders from Gatito Leon MD, for the diagnosis of right wrist pain for a total of 10 visit(s). Please see the following information for a summary of their discharge status. 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 pt has made gains but feel further testing imaging would be beneficial. Goals Patient Goals: Regain Mobility, Decrease Pain, Use Hand/Wrist/Arm Normally Again and Be More Independent in ADLS Goal:: pt will report IND with open jar lid at TANIA level by d.c Goal:: pt will demo a increase in right wrist AAROM equal to left without reports of pain by dc Goal:: pt will report no pain greater than 1/10 with use of right UE with ADls and IADLs. Goal:: Pt will demo understanding of work/lifting and carry ergonomics to decrease stress on tendons to increase pts independent with ADLs, IADLS and work tasks by d/c. Pt will demo understanding of using supportive bracing 80% of workday/ADLS to decrease stress on tendon origin to allow healing and decrease pain by end of 2nd session. pt will demo understanding of using supportive tape to right wrist to limit stress on FCU and support TFCC region by end of 2nd visit. Plan Plan: Pt to tape when hiking and to do isometrics at home. pt d/c D/C Information Discharge Comments: pt was seen for 10 OT sessions- pt made gains but still has pain when palpating around carpal bones and TFCC area- at this time pt to cont. with wrist isometric, bracing at night - tape when walking with walking sticks. pt to return to . possible further testing or imaging. pt agrees with D/C. d/c sentence: If there are questions or concerns regarding this patient's occupational therapy, please fell free to call me at [phone]. Thank you for the referral of this patient. Sincerely, Courtney Jarvis, OTR/L, CHT 12/24/23 [id number] CC: Dr. Gatito Leon MD MK Signed Normal [facility] CBC W/Diff, Automatedon - Absolute Lymph 1.57 X10 3/uL Normal 0.83-4.51 [facility] Comment on above: Performed By: #### L 500.4050, L501.9940, L100.0100 #### [facility] [facility] [address] [place], [address] Absolute Neut 3.8 X10 3/uL Normal 2.0-7.7 [facility] Comment on above: Performed By: #### L 500.4050, L501.9940, L100.0100 #### [facility] [address] [place], [address] Basophils/100 WBC (Bld) 0.6 % Normal 0-1 [facility] Comment on above: Performed By: #### L 500.4050, L501.9940, L100.0100 #### [facility] [address] [place], [address] Eosinophils/100 WBC (Bld) 4.8 % Normal 0-5 [facility] Comment on above: Performed By: #### L 500.4050, L501.9940, L100.0100 #### [facility] [address] [place], [address] Erythrocyte distribution width (RBC) [Ratio] 12.7 % Normal 11.6-14.6 [facility] Comment on above: Performed By: #### L 500.4050, L501.9940, L100.0100 #### [facility] [address] [place], [address] Hematocrit (Bld) [Volume fraction] 45.2 % Normal 40-54 [facility] Comment on above: Performed By: #### L 500.4050, L501.9940, L100.0100 #### [facility] [address] [place], [address] Hemoglobin (Bld) [Mass/Vol] 15.3 g/dL Normal 13.0-16.5 [facility] Comment on above: Performed By: #### L 500.4050, L501.9940, L100.0100 #### [facility] [address] [place], [address] IG% 0.300 Normal 0.0-0.9 [facility] Comment on above: Result Comment: IG% - Immature Granulocytes (promyelocytes, myelocytes and metamyelocytes) > 1% indicates that a LEFT SHIFT is Present. Performed By: #### L 500.4050, L501.9940, L100.0100 #### [facility] [address] [place], [address] Lymphocytes/100 WBC (Bld) 25.0 % Normal 19-41 [facility] Comment on above: Performed By: #### L 500.4050, L501.9940, L100.0100 #### [facility] [address] [place], [address] MCH (RBC) [Entitic mass] 29.9 pg Normal 27.0-32.0 [facility] Comment on above: Performed By: #### L 500.4050, L501.9940, L100.0100 #### [facility] [address] [place], [address] MCHC (RBC) [Mass/Vol] 33.8 g/dL Normal 32-36 [facility] Comment on above: Performed By: #### L 500.4050, L501.9940, L100.0100 #### [facility] [address] [place], [address] MCV (RBC) [Entitic vol] 88.3 fL Normal 80-94 [facility] Comment on above: Performed By: #### L 500.4050, L501.9940, L100.0100 #### [facility] [address] [place], [address] Monocytes/100 WBC (Bld) 9.7 % Normal 0-10 [facility] Comment on above: Performed By: #### L 500.4050, L501.9940, L100.0100 #### [facility] [address] [place], [address] Neutrophils/100 WBC (Bld) 59.6 % Normal 47-70 [facility] Comment on above: Performed By: #### L 500.4050, L501.9940, L100.0100 #### [facility] [address] [place], [address] Nucleated RBC (Bld) [#/Vol] 0 10*3/uL Normal 0-5 [facility] Comment on above: Performed By: #### L 500.4050, L501.9940, L100.0100 #### [facility] [address] [place], [address] Platelet mean volume (Bld) [Entitic vol] 9.5 fL Normal 6.2-12.0 [facility] Comment on above: Performed By: #### L 500.4050, L501.9940, L100.0100 #### [facility] [address] [place], [address] Platelets (Bld) [#/Vol] 250 10*3/uL Normal 150-450 [facility] Comment on above: Performed By: #### L 500.4050, L501.9940, L100.0100 #### [facility] [address] [place], [address] RBC (Bld) [#/Vol] 5.12 10*6/uL Normal 4.6-6.2 [facility] Comment on above: Performed By: #### L 500.4050, L501.9940, L100.0100 #### [facility] [address] [place], [address] RDW SD 41.3 fl Normal 35.1-43.9 [facility] Comment on above: Performed By: #### L 500.4050, L501.9940, L100.0100 #### [facility] [address] [place], [address] WBC (Bld) [#/Vol] 6.3 10*3/uL Normal 4.4-11.0 [facility] Comment on above: Performed By: #### L 500.4050, L501.9940, L100.0100 #### [facility] [address] [place], [address] Comprehensive Metabolic [facility] ilon 12-07-2023 Albumin [Mass/Vol] 3.8 g/dL Normal 3.2-5.0 [facility] Comment on above: Performed By: #### L 500.4050, L501.9940, L100.0100 #### [facility] [address] [place], [address] Albumin/Globulin [Mass ratio] 1.2 {ratio} Normal 0.9-2.4 [facility] Comment on above: Performed By: #### L 500.4050, L501.9940, L100.0100 #### [facility] [address] [place], [address] ALK P 102 U/L Normal 45-117 [facility] Comment on above: Performed By: #### L 500.4050, L501.9940, L100.0100 #### [facility] [address] [place], [address] ALT [Catalytic activity/Vol] 22 U/L Normal 16-61 [facility] Comment on above: Performed By: #### L 500.4050, L501.9940, L100.0100 #### [facility] [address] [place], [address] AST [Catalytic activity/Vol] 16 U/L Normal 15-37 [facility] Comment on above: Performed By: #### L 500.4050, L501.9940, L100.0100 #### [facility] [address] [place], [address] Bilirubin [Mass/Vol] 0.70 mg/dL Normal 0.20-1.00 [facility] Comment on above: Result Comment: For patients on eltrombopag therapy, use of Dimension [place] TBIL is not recommended. Performed By: #### L 500.4050, L501.9940, L100.0100 #### [facility] [address] [place], [address] BUN/CRE 21.4 RATIO High 10-20 [facility] Comment on above: Performed By: #### L 500.4050, L501.9940, L100.0100 #### [facility] [address] [place], [address] CA,Total 8.9 mg/dL Normal 8.5-10.1 [facility] Comment on above: Performed By: #### L 500.4050, L501.9940, L100.0100 #### [facility] [address] [place], [address] Chloride [Moles/Vol] 108 mmol/L High 98-107 [facility] Comment on above: Performed By: #### L 500.4050, L501.9940, L100.0100 #### [facility] [address] [place], [address] CO2 [Moles/Vol] 30.0 mmol/L Normal 21.0-32.0 [facility] Comment on above: Performed By: #### L 500.4050, L501.9940, L100.0100 #### [facility] [address] [place], [address] Creatinine [Mass/Vol] 1.03 mg/dL Normal 0.70-1.30 [facility] Comment on above: Result Comment: The validity of the calculated GFR GFRAA in patients over 70 years has not been determined. Clinical correlation is essential. Performed By: #### L 500.4050, L501.9940, L100.0100 #### [facility] [address] [place], [address] EST GFR - AA 91 mL/min Normal >60 [facility] Comment on above: Result Comment: Afri can [place] GFR Calc Performed By: #### L 500.4050, L501.9940, L100.0100 #### [facility] [address] [place], [address] GAP 4 Low 5-15 [facility] Comment on above: Performed By: #### L 500.4050, L501.9940, L100.0100 #### [facility] [address] [place], [address] GFR/1.73 sq M.predicted among non-blacks MDRD (S/P/Bld) [Vol rate/Area] 75 mL/min/{1.73_m2} Normal >60 [facility] Comment on above: Result Comment: Non- GFR Calc Performed By: #### L 500.4050, L501.9940, L100.0100 #### [facility] [address] [place], [address] Globulin (S) [Mass/Vol] 3.3 g/dL Normal 2.2-4.2 [facility] Comment on above: Performed By: #### L 500.4050, L501.9940, L100.0100 #### [facility] [address] [place], [address] Glucose [Mass/Vol] 91 mg/dL Normal 74-106 [facility] Comment on above: Performed By: #### L 500.4050, L501.9940, L100.0100 #### [facility] [address] [place], [address] Potassium [Moles/Vol] 3.8 mmol/L Normal 3.5-5.1 [facility] Comment on above: Performed By: #### L 500.4050, L501.9940, L100.0100 #### [facility] [address] [place], [address] Sodium [Moles/Vol] 142 mmol/L Normal 136-145 [facility] Comment on above: Performed By: #### L 500.4050, L501.9940, L100.0100 #### [facility] [address] [place], [address] T PROT 7.1 g/dL Normal 6.4-8.2 [facility] Comment on above: Performed By: #### L 500.4050, L501.9940, L100.0100 #### [facility] [address] [place], [address] Urea nitrogen [Mass/Vol] 22 mg/dL High 7-18 [facility] Comment on above: Performed By: #### L 500.4050, L501.9940, L100.0100 #### [facility] [address] [place], [address] PSA,Total- Diagnosticon 10-1 PSA, DIAGNOSTIC 4.13 ng/mL High 0.0-4.0 [facility] Comment on above: Result Comment: This test was performed using the TPSA assay method for the [employer] chemistry system. Values obtained with different assay methods cannot be used interchangably. When changing PSA assays in the course of monitoring a patient, additional sequential testing should be carried out to confirm baseline values. Performed By: #### L 500.4050, L501.9940, L100.0100 #### [facility] [address] [place], [address] OT General Evaluationon 10-0 OT General Evaluation [facility] Occupational Therapy [address] [place] [address] / REHABILITATION SERVICES INITIAL EVALUATION MR#: [id number] Acct: [id number] Name: CHLOE WILCOX Rep #: [id number] : 1950 73 From: Courtney DONNELLY CHT Referring Dr.: Dr. Gatito Leon MD Status: REG RCR Insurance: MEDICARE PART A B Eval Date: AARP Patient's Visit Information Visit Information Visit Information: CHLOE WILCOX is a 73 year old M, referred to Occupational Therapy by Gatito Leon MD, with a diagnosis of right wrist pain. Date of Evaluation: 11/21/23 Occupational Therapist: Courtney Jarvis, SHENA/Jeffery, DEVT Subjective Subjective: This 73 year old male was seen for OT eval with dx of pain of right wrist- tendon disorder. Pt states he has had issues with his wrist for almost a year. Pt states he was given a right wrist brace to wear with working and with playing softball. 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 right handed. pt states he can not open new jar lids due to pain pt would like to know what he can do to decrease pain to cont. to play softball and perform his daily occupations. 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 Goal:: Pt will demo understanding of work/lifting and carry ergonomics to decrease stress on tendons to increase pts independent with ADLs, IADLS and work tasks by d/c. Pt will demo understanding of using supportive bracing 80% of workday/ADLS to decrease stress on tendon origin to allow healing and decrease pain by end of 2nd session. pt will demo understanding of using supportive tape to right wrist to limit stress on FCU and support TFCC region by end of 2nd visit. Rehabilitation General Assessment: pt demo with painful right forearm sup/pronation and resistive wrist flexion. The symptoms limit pts IND with daily occupations. pt would benefit from skilled OT services 2x week for 4-6 weeks to return pt to OF. Today therapist ed, pt on wrist ergo at laptop and to avoid excessive strain by avoiding holding item long period of time. Therapist will work with pt to establish HEP and wrist stabilization ex. pt demo understanding and agree to POC. Rehabilitation Potential: Good Anticipated Interventions Anticipated Interventions: A/AAROM/PROM, Strengthening, Triggerpoint Release, Modalities, Orthoses, Joint Protection/Energy Conservation, Ergonomic Education, Education re assistive Equipment, Education re Diagnosis and Home Program Visit Plan Frequency: 2x /Week Duration: 4-6 Weeks TEXT: Thank you for the opportunity to evaluate your patient. For Medicare and Medicare HMO plans, please review the plan of care and approve it. It will need to be FAXED BACK to us at [phone] for Medicare purposes. Please let me know if there are questions or concerns regarding this plan of care. Physician Signature: Date : 11/21/23 1538 CC: Dr. Gatito Leon MD ROSARIO Signed For Medicare only, by signing this I certify the plan of care. Physicians Signature Date Normal [facility] Inital Evaluation (1) - PTon 11-20-2023 Inital Evaluation (1) - PT [facility] Physical Therapy [facility] [address] [place] [address]. [address] [place] [address] / REHABILITATION SERVICES INITIAL EVALUATION MR#: [id number] Acct: [id number] Name: CHLOE WILCOX Rep #: [id number] : 1950 73 From: Jeremy Medley DPT Referring Dr.: Dr. Gatito Leon MD Status: REG RCR Insurance: MEDICARE PART A B AARP Patient's Visit Information Visit Information Visit Information: CHLOE WILCOX is a 73 year old M referred to Physical Therapy by Gatito Leon MD with a diagnosis of R shoulder pain. Date of Evaluation: 11/20/23 Physical Therapist: CANDIDA SchroederT Visit Plan Frequency: 1x/Week Duration: 4 Weeks Plan: 1) RTC and deltoid strengthening with progressive loading. Pt. given HEP and bands this date. Pt. given phase III RTC strengthening. Pt. to complete for 2-3 weeks on his own than come back to PT as needed. Subjective Subjective: Pt. is here today for his R shoulder pain. Pt. reports having increased R shoulder pain at anterior and superior aspects. He reports his biggest issues is with over hand throwing while playing softball. He reports only being able to throw the ball 20 feet and having increased pain while doing so. He reports no mech of injury. Pt. reports no issues with sleeping. Pt. denies N/T. Pt. has not done any imaging. Pt. is hopeful to reduce symptoms in order to get back to all softball without issues. Pain R shoulder: Pain Intensity (Out of 10): 0 Pain Intensity Range: 0 and 4 Objective Objective: POSTURE: Pt. has slight FH posture, more so rounded shoulder noted. PALPATION: Pt. has tenderness along biceps tendon, Increased pain at supraspinatus muscle belly. NEURO: Pt. has normal sensation in BLEs. No N/T noted. Pt. has normal DTR of BUEs. ROM: L shoulder full ROM without increase in symptoms. R shoulder: AROM: flexion 170deg increase NW, abd 165deg increase NW, functional ER C4, functional IR L3 increase NW. PROM: Flexion 175deg mild increase NW, abd 175deg increase NW, ER at 90deg 110deg NE, IR at 90deg 50deg mild increase NW. MMT: R shoulder: flexion 15#, abd 14#, ER 14.1#, IR 18.1#. L shoulder: flexion 14#, abd 11#, ER 13.7#, IR 17.9#. Special Tests R Shoulder External Rotation Lag Test - RC Tear: Negative R Shoulder Supine Impingement Test - RC Tear: Negative R Shoulder Drop Sign - IS Test: Negative R Shoulder Empty Can - SS: Positive R Shoulder Belly Press - SupScap: Negative R Shoulder Neer - Impingement: Positive R Shoulder Seo Silvio - Impingement: Positive R Shoulder Biceps Load Test - Labrum: Negative Balance/Special Test Scores Quick DASH Score: 27.2725 Goals Goal 1:: LTG: Pt. to be I with HEP for RTC strengthening. Goal Time Frame: 4-6 Weeks Goal 2:: LTG: Pt. to be able to throw a softball without increase in R shoulder pain. Goal Time Frame: 4-6 Weeks Goal 3:: STG: Pt. to have full R shoulder ROM without increase in shoulder pain. Goal Time Frame: 2-4 Weeks Goal 4:: LTG: Pt. to have no pain with all over head activities. Goal Time Frame: 4-6 Weeks Rehabilitation Potential Physical Therapy Diagnosis: Pt. has signs and symptoms consistent with R shoulder pain. He did not have signs of RTC rupture or significant OA. Pt. would benefit from PT to work on RTC progressive loading to increase tolerance to throwing with softball. Rehabilitation Potential: Excellent Anticipated Interventions Patient/Client Instruction: Educate patient on: Condition, Plan of Care, Risk Factors and Benefits of Fitness Program For the Purpose of:: To facilitate caregiver knowledge, To improve self management, To prevent re- injury, To improve ability to perform tasks related to life management and To improve tolerance to ADL's Therapeutic Exercise to Include: Strength training, Power training, Postural training, Flexibilty training, Passive ROM, Active ROM and Scapular Strength/Stabilizatio n For the Purpose of:: To decrease pain, To increase ROM, To improve nutrient delivery to tissue, To increase oxygenation perfusion, To improve muscle performance and motor function, To improve ability to perform ADL's and To decrease soft tissue restriction Text: Thank you for the opportunity to evaluate your patient. For Medicare and Medicare HMO plans, please review the plan of care and approve it. It will need to be FAXED BACK to us at [phone] for Medicare purposes. For Medicare only, by signing this I certify the plan of care. Please let me know if there are questions or concerns regarding this plan of care. Physician Signature: Date : 11/20/23 1001 CC: Dr. Gatito Leon MD CLS Signed Normal [facility] Wrist min 3 Viewson 11-09-19 Wrist min 3 Views [facility] Imaging Services [address] [place] [address] Wrist min 3 Views MR#: [id number] Acct: [id number] Name: CHLOE WILCOX Rep #: [id number] : 1950 73 From: Anthony Santiago MD PCP: Dr. Gatito Leon MD Status: REG CL Study: Wrist min 3 Views Date of Exam: 11/09/23 Exam# [id number] Ordering Dr: Gatito Leon MD [id number] STUDY: X-RAY - RIGHT WRIST REASON FOR EXAM: Male, 73 years old. Right wrist pain. TECHNIQUE: 3 views of the right wrist were obtained. COMPARISON: None. FINDINGS: Normal visualized distal radius and ulna. Normal radiocarpal articulation. Normal distal radioulnar articulation. Normal carpal bones. Normal carpal articulations. Normal second through fifth carpometacarpal articulations. There is a 4 mm cyst at the base of the first metacarpal. Normal visualized metacarpal bones. The soft tissue structures are unremarkable. There is no demonstrated acute fracture. RAD/Wrist min 3 Views IMPRESSION: 4 mm cyst at the base of the first metacarpal. No demonstrated acute fracture. Electronically Signed: Anthony Santiago MD at 15:23 EDT Reading Location ID and State: [facility] / [place] , Service support , CC: Dr. Gatito Leon MD Manufacturing Management Associate: Signed Normal [facility] Lipid 1996 panelon 4 Cholesterol [Mass/Vol] 101 mg/dL Normal <200 [facility] Comment on above: Order Comment: Speci men Type: BLOOD SPECIMEN Ordering Facility: [facility] Address: [address] [place] [address] Result Comment: <200 mg/dL, Desirable 200-239 mg/dL, Borderline high >239 mg/dL, High Performed By: #### 2 4331-1 #### [facility] CLIA [id number] [address] [place] [address] [place] Cholesterol in HDL [Mass/Vol] 41 mg/dL Normal >39 [facility] Comment on above: Order Comment: Speci men Type: BLOOD SPECIMEN Ordering Facility: [facility] Address: [address] [place] [address] Result Comment: 40-5 9 mg/dL, Acceptable >59 mg/dL, High: Negative risk factor for coronary heart disease <40 mg/dL, Low: Positive risk factor for coronary heart disease Performed By: #### 2 4331-1 #### [facility] CLIA [id number] [address] [place] [address] [place] Cholesterol in LDL [Mass/Vol] 42 mg/dL Normal <100 [facility] Comment on above: Order Comment: Speci men Type: BLOOD SPECIMEN Ordering Facility: [facility] Address: [address] [place] [address] Result Comment: <100 mg/dL, Optimal 100-129 mg/dL, Near optimal/above optimal 130-159 mg/dL, Borderline high 160-189 mg/dL, High >189 mg/dL, Very high Secondary prevention optimal LDL Cholesterol levels are recommended to be < 70 mg/dL Performed By: #### 2 4331-1 #### [facility] CLIA [id number] [address] [place] [address] [place] Cholesterol in LDL/Cholesterol in HDL [Mass ratio] 1.02 {ratio} Normal <2.54 [facility] Comment on above: Order Comment: Chet sage Type: BLOOD SPECIMEN Ordering Facility: [facility] Address: [address] [place] [address] Result Comment: Edward nickerson: 1. National Cholesterol Education Program ATP III Guideline At-A-Glance Quick Desk Reference: National Heart, Lung, and Blood [place]. National Institutes of Health. 2001: NIH Publication No. 01-3305. 2. An International Atherosclerosis Society position paper: global recommendations for the management of dyslipidemia: executive summary, Atherosclerosis. 2014: 232(2):410-413. Performed By: #### 2 4331-1 #### [facility] CLIA [id number] [address] [place] [address] [place] Cholesterol in VLDL [Mass/Vol] 18 mg/dL Normal <30 [facility] Comment on above: Order Comment: Chet sage Type: BLOOD SPECIMEN Ordering Facility: [facility] Address: [address] [place] [address] Performed By: #### 2 4331-1 #### [facility] CLIA [id number] [address] [place] [address] [place] Cholesterol non HDL [Mass/Vol] 60 mg/dL Normal <130 [facility] Comment on above: Order Comment: Chet sage Type: BLOOD SPECIMEN Ordering Facility: [facility] Address: [address] [place] [address] Result Comment: <130 mg/dL, Optimal 130-159 mg/dL, Near optimal/above optimal 160-189 mg/dL, Borderline high 190-219 mg/dL, High >219 mg/dL, Very high Secondary prevention optimal non HDL Cholesterol levels are recommended to be <100 mg/dL Performed By: #### 2 4331-1 #### [facility] CLIA [id number] [address] [place] [address] [place] Cholesterol.total/Chol esterol in HDL [Mass ratio] 2.46 {ratio} Normal <5.10 [facility] Comment on above: Order Comment: Speci men Type: BLOOD SPECIMEN Ordering Facility: [facility] Address: [address] [place] [address] Performed By: #### 2 4331-1 #### [facility] CLIA [id number] [address] [place] [address] [place] FASTING TIME 12 hrs Normal [facility] Comment on above: Order Comment: Speci men Type: BLOOD SPECIMEN Ordering Facility: [facility] Address: [address] [place] [address] Performed By: #### 2 4331-1 #### [facility] CLIA [id number] [address] [place] [address] [place] Triglyceride [Mass/Vol] 89 mg/dL Normal <150 [facility] Comment on above: Order Comment: Speci men Type: BLOOD SPECIMEN Ordering Facility: [facility] Address: [address] [place] [address] Result Comment: <150 mg/dL, Normal 150-199 mg/dL, Borderline high 200-499 mg/dL, High >499 mg/dL, Very high Performed By: #### 2 4331-1 #### [facility] CLIA [id number] [address] [place] [address] [place] CNPAnkita 08-13-2023 CNPN Telephone (CATHMN) CHLOE WILCOX ([id number]) 1950 Date Time Provider Department 08/13/23 KURTIS HASTINGS During your visit today, we recorded the following information about you: Mouna Keane 08/13/2023 4:58 PM Signed Call from patient Went to PCP for some back pain and they prescribed meloxitam 15mg once daily for up to 30 days. Pt states that PCP said it would be okay since it's short term but after reading the warning label on the bottle he wanted to verify with cardiology. Call back number [phone] - OK to leave Bc Guerrero APRN.CNP 08/14/2023 11:55 AM Signed Returned phone call, explained he can take for a short period of time, but should stop the medication and notify his PCP if he has any blood in his stool or urine. Bc Maradiaga APRN.SENDY Allergies As of Date: 08/13/2023 Noted Allergy Reaction RAGWEED POLLEN 06/19/1984 9 - Itching 14 - Other: See Comments Date Reviewed: 03/16/2023 Reviewed by: Cinthya Carvajal LPN - Fully Assessed Prescriptions as of 08/14/2023 - evolocumab (REPATHA PUSHTRONEX) 420 mg/3.5 mL wearable injector Inject 3.5 mL subcutaneously once every month. - clopidogrel (PLAVIX) 75 mg tablet Take 1 tablet by mouth once daily. - atorvastatin (LIPITOR) 80 mg tablet Take 1 tablet by mouth daily at bedtime. - amLODIPine (NORVASC) 2.5 mg tablet Take 1 tablet by mouth once daily. - Ipratropium [place] (ATROVENT) 21 mcg (0.03 %) nasal spray - Amoxicillin 500 mg tablet Take 4 tablets by mouth as needed. Prior to dental procedures - acetaminophen (TYLENOL) 325 mg tablet 2 tablets by ORAL/FEEDING TUBE route every 4 hours as needed for pain. - cetirizine (ZYRTEC) 10 mg tablet Take 10 mg by mouth as needed. - albuterol HFA (VENTOLIN HFA) 90 mcg/actuation inhaler Inhale 2 Puffs as instructed every 4 hours as needed for Wheezing/Shortness of Breath. - Multivitamin capsule Take 1 capsule by mouth once daily. 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] 02/18/2018 Status post transcatheter aortic valve replacem*04/23/2018 Nonrheumatic aortic valve stenosis [I35.0] 04/23/2018 Hyperlipidemia [E78.5] 04/23/2018 Coronary artery disease involving rosebud martinez*04/23/2018 TIA (transient ischemic attack) [G45.9] 04/23/2018 Obesity, Class I, BMI 30-34.9 [E66.9] 04/24/2018 Prostate disorder [N42.9] 04/26/2018 Discharge planning issues [Z75.8] 01/25/2021 Pre-op testing [Z01.818] 01/25/2021 On mechanically assisted ventilation (HCC) [Z99*01/26/2021 01/28/2021 Postoperative pain [G89.18] 01/26/2021 Coagulopathy (HCC) [D68.9] 01/26/2021 01/27/2021 Acute blood loss anemia [D62] 01/26/2021 01/28/2021 Postoperative hypotension [I95.81] 01/26/2021 01/28/2021 Atelectasis [J98.11] 01/27/2021 Paroxysmal atrial fibrillation (HCC) [I48.0] 01/28/2021 Hypervolemia [E87.70] 01/29/2021 SUMMARY [Z76.89] 01/31/2021 Encounter Status:Closed by BC MARADIAGA on 08/14/23 Normal [facility] ECHO WITH AGITATED SALINE CO NTRASTon 08-06-2023 ECHO WITH AGITATED SALINE CONTRAST Echocardiography Report: Transthoracic Echo [facility] Date of service: 08/06/2023 1:48:00 PM RADIOLOGY Ordering physician: KURTIS HASTINGS Indication: CAD Technologist: Alexandria Quigley [facility] Interpreting physician: Mansoor Mack DO PATIENT: Name: MR. CHLOE WILCOX : 1950 Age: 72 years Gender: M History of valvular heart disease and coronary artery disease. Previous cardiovascular interventions: Aortic valve replacement (1995) CABG (2010) Percutaneous aortic valve replacement (2018) PCI (2019) CABG (01/26/21) Biobentall (01/26/21) Primary rhythm: sinus. Height: 162.60 cm BSA: 1.90 m Weight: 80.29 kg BMI: 30.4 kg/m Heart rate 63 bpm Blood pressure 121/67 mmHg Technically difficult exam due to body habitus. Color Doppler was utilized to interrogate the cardiac valves assessed and spectral Doppler was utilized to determine the flow velocities and pressure gradients reported in this exam. Myocardial strain analysis was performed in this exam to aid in the assessment of cardiac function. MEASUREMENTS: Value Indexed Normal Max aortic dimension 3.5 cm Ao < 3.8 Left atrial volume 65 ml (biplane A-L) 34 ml/m Presley <= 34 LV ID (diastole) 3.9 cm (2D) 2.07 cm/m LV ID (systole) 2.6 cm (2D) 1.38 cm/m IVS, leaflet tips 1.3 cm (2D) Posterior wall thickness 1.2 cm (2D) Left ventricular mass 171 g (2D) 90 g/m Global peak long strain -17.7 % LV stroke volume 68 ml (2D biplane) LV end diastolic volume 109 ml (2D biplane) 57.2 ml/m 34<=EDVi<75 LV end systolic volume 41 ml (2D biplane) 21.3 ml/m Ejection Fraction 63 % (2D biplane) EF > 52 FINDINGS: LEFT VENTRICLE The left ventricle is normal in size. Left ventricular systolic function is normal. Global LV myocardial strain is normal. Indeterminate left ventricular diastolic dysfunction. Mitral annular lateral E/e': 6.2. Mitral annular septal E/e': 10.9. Wall Motion: All scored segments are normal. RIGHT VENTRICLE The right ventricle is normal in size. Right ventricular systolic function is normal. RV systolic tissue Doppler velocity is 10.0 cm/s. Tricuspid annular displacement is 1.7 cm. Estimated right ventricular systolic pressure is 27 mmHg consistent with normal pulmonary artery pressures. Estimated right atrial pressure is 3 mmHg (although IVC not seen). LEFT ATRIUM The left atrial cavity is normal in size. RIGHT ATRIUM The right atrial cavity is normal in size. MITRAL VALVE The mitral valve leaflets are structurally normal. There is trace (trace - 1+) mitral valve regurgitation. The pressure half time is 76 msec. The peak mitral E/A ratio is 1.01. The average mitral E/e' ratio is 8.5. The mitral flow deceleration time is 262 msec. TRICUSPID VALVE The tricuspid valve leaflets are structurally normal. There is trace (trace - 1+) tricuspid valve regurgitation. AORTIC VALVE Konect prosthetic valve size #25. The peak gradient is 8 mmHg (peak velocity = 143.4 cm/s). The mean gradient is 4 mmHg. The LVOT mean velocity is 59.9 cm/s. The aortic VTI is 26.6 cm. The mean velocity in the aortic valve is 93.9 cm/s. The dimensionless valve index is 0.66. PULMONIC VALVE The pulmonic valve cusps are structurally normal. There is no pulmonic valve regurgitation. AORTA The visualized aorta is normal in size. Measurements - Mid ascending aorta 3.1 cm. Distal ascending aorta 3.5 cm. INTERATRIAL SEPTUM The interatrial septum is mobile. There is no patent foramen ovale as detected by Doppler. INTERVENTRICULAR SEPTUM There is abnormal motion of the interventricular septum secondary to prior cardiac surgery. PERICARDIUM There is no pericardial effusion. There is an epicardial fat pad. CONCLUSIONS: - Technically difficult exam due to body habitus. - Exam indication: CAD - The left ventricle is normal in size. Left ventricular systolic function is normal. EF = 63 5% (2D biplane) Indeterminate left ventricular diastolic dysfunction. - The right ventricle is normal in size. Right ventricular systolic function is normal. 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 The peak gradient is 8 mmHg, the mean gradient is 4 mmHg and the dimensionless valve index is 0.66. Prior pk/mn gradients were 8/3 mmHg. - There is no patent foramen ovale as detected by Doppler. - Agitated saline could not be administered d/t unavailability of staff. - Exam was compared with the prior echocardiographic exam performed on 05/05/2022, no significant change. * * * Final * * * [facility] : [id number] micsSISUID Normal [facility] No Panel InformationOrdered By: Dr. Easley on 05-29-2022 Prostate Specific Antigen Total 3.49 ng/mL 0.0-4.0 [facility] Comment on above: This test was perfor med using the TPSA assay method for theDimension chemistry system. Values obtained with differentassay methods cannot be used interchangably.When changing PSA assays in the course of monitoring apatient, additional sequential testing should be carriedout to confirm baseline values. Basophil percentageon 2021 Cholesterol [Mass/Vol] 87 mg/dL <200 [facility] Work Phone: Comment on above: <200 mg/dL Desirable 200-240 mg/dL Borderline >240 mg/dL High Risk Triglyceride [Mass/Vol] 127 mg/dL [facility] Work Phone: Comment on above: The drugs N-Acetylcy steine and Metamizole may falsely depress this assay.Serum Triglycerides Reference Interval Normal <150 mg/dL Borderline high 150 - 199 mg/dL High 200 - 499 mg/dL Very High > or = 500 mg/dL No Panel Informationon 04-14 Prostate Specific Antigen Total 3.02 ng/mL 0.0-4.0 [facility] Work Phone: Comment on above: This test was perfor med using the TPSA assay method for theSelligymension chemistry system. Values obtained with differentassay methods cannot be used interchangably.When changing PSA assays in the course of monitoring apatient, additional sequential testing should be carriedout to confirm baseline values. Serum or plasma cholesterol in HDL measurement (mass/volume)on 04-14-2021 Cholesterol in HDL [Mass/Vol] 42 mg/dL [facility] Work Phone: Comment on above: The drugs N-Acetylcy steine and Metamizole may falsely depress this assay. Reference Range HDL <40 mg/dL Low HDL Cholesterol HDL >or= 60 mg/dL High HDL Cholesterol Serum or plasma cholesterol in VLDL measurement (mass/volume)on 04-14-2021 Cholesterol in VLDL [Mass/Vol] 25 mg/dL 5-40 [facility] Work Phone: Serum or plasma low density lipoprotein (LDL) cholesterol measurement (mass/volume)on 04-14-2021 Cholesterol in LDL [Mass/Vol] 20 mg/dL 0-130 [facility] Work Phone: CNPNon 02-08-2021 CNPN Telephone (MM5WST) CHLOE WILCOX ([id number]) 1950 M Date Time Provider Department 02/08/21 NITZA MCQUEEN MM5WST During your visit today, we recorded the following information about you: Nitza Mcqueen RN 02/08/2021 3:14 PM Signed Patient unavailable, left voicemail. Patient was provided with the 24 hour nurse help line [phone]. Allergies As of Date: 02/08/2021 Noted Allergy Reaction RAGWEED POLLEN 06/19/1984 9 - Itching 14 - Other: See Comments Date Reviewed: 02/02/2021 Reviewed by: Parish Oliva RN - Fully Assessed Reason for Visit: Follow Up Phone Call [[id number]] Cmt: Relatecare 1st Attempt Prescriptions as of 02/08/2021 - atorvastatin (LIPITOR) 40 mg tablet Take 1 tablet by mouth daily at bedtime. - acetaminophen (TYLENOL) 325 mg tablet 2 tablets by ORAL/FEEDING TUBE route every 4 hours as needed for pain. - amiodarone (PACERONE) 200 mg tablet take 400mg twice for 5 days, 400mg daily for 5 days and then 200mg daily for 21 days - amLODIPine (NORVASC) 2.5 mg tablet Take 1 tablet by mouth once daily. - furosemide (LASIX) 20 mg tablet Take 1 tablet by mouth twice daily. - metoprolol tartrate, short acting, (LOPRESSOR) 25 mg tablet Take 1 tablet by mouth twice daily. - oxyCODONE IR (ROXICODONE) 5 mg immediate release tablet 1 tablet by ORAL/FEEDING TUBE route every 6 hours as needed for up to 7 days. - pantoprazole DR (PROTONIX) 20 mg tablet Take 1 tablet by mouth DAILY (6 AM). - senna-docusate (SENNA-S) 8.6-50 mg per tablet Take 1 tablet by mouth twice daily. - potassium chloride ER (K-DUR, KLOR-CON) 20 mEq tablet Take 1 tablet by mouth once daily. - evolocumab (REPATHA PUSHTRONEX) 420 mg/3.5 mL Inject 3.5 mL subcutaneously once every month. - BRILINTA 90 mg tablet Take 90 mg by mouth twice daily. - aspirin, enteric coated (ASPIRIN, ENTERIC COATED) 81 mg EC tablet Take 81 mg by mouth once daily. - cetirizine (ZYRTEC) 10 mg tablet Take 10 mg by mouth as needed. - albuterol HFA (VENTOLIN HFA) 90 mcg/actuation inhaler Inhale 2 Puffs as instructed every 4 hours as needed for Wheezing/Shortness of Breath. - Multivitamin capsule Take 1 capsule by mouth once daily. 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] 02/18/2018 Status post transcatheter aortic valve replacem*04/23/2018 Nonrheumatic aortic valve stenosis [I35.0] 04/23/2018 Hyperlipidemia [E78.5] 04/23/2018 Coronary artery disease involving rosebud martinez*04/23/2018 TIA (transient ischemic attack) [G45.9] 04/23/2018 Obesity, Class I, BMI 30-34.9 [E66.9] 04/24/2018 Prostate disorder [N42.9] 04/26/2018 Discharge planning issues [Z02.9] 01/25/2021 Pre-op testing [Z01.818] 01/25/2021 On mechanically assisted ventilation (HCC) [Z99*01/26/2021 01/28/2021 Postoperative pain [G89.18] 01/26/2021 Coagulopathy (HCC) [D68.9] 01/26/2021 01/27/2021 Acute blood loss anemia [D62] 01/26/2021 01/28/2021 Postoperative hypotension [I95.81] 01/26/2021 01/28/2021 Atelectasis [J98.11] 01/27/2021 Paroxysmal atrial fibrillation (HCC) [I48.0] 01/28/2021 Hypervolemia [E87.70] 01/29/2021 SUMMARY [Z76.89] 01/31/2021 Encounter Status:Closed by NITZA MCQUEEN on 02/08/21 [facility] Telephone (MM5WST) CHLOE WILCOX ([id number]) 1950 M Date Time Provider Department 02/08/21 NITZA MCQUEEN MM5WST During your visit today, we recorded the following information about you: Nitza Mcqueen RN 02/08/2021 3:17 PM Signed Patient unavailable, left voicemail. Patient was provided with the 24 hour nurse help line [phone]. Allergies As of Date: 02/08/2021 Noted Allergy Reaction RAGWEED POLLEN 06/19/1984 9 - Itching 14 - Other: See Comments Date Reviewed: 02/02/2021 Reviewed by: Parish Oliva RN - Fully Assessed Reason for Visit: Follow Up Phone Call [[id number]] Cmt: Relatecare 1st Attempt Prescriptions as of 02/08/2021 - atorvastatin (LIPITOR) 40 mg tablet Take 1 tablet by mouth daily at bedtime. - acetaminophen (TYLENOL) 325 mg tablet 2 tablets by ORAL/FEEDING TUBE route every 4 hours as needed for pain. - amiodarone (PACERONE) 200 mg tablet take 400mg twice for 5 days, 400mg daily for 5 days and then 200mg daily for 21 days - amLODIPine (NORVASC) 2.5 mg tablet Take 1 tablet by mouth once daily. - furosemide (LASIX) 20 mg tablet Take 1 tablet by mouth twice daily. - metoprolol tartrate, short acting, (LOPRESSOR) 25 mg tablet Take 1 tablet by mouth twice daily. - oxyCODONE IR (ROXICODONE) 5 mg immediate release tablet 1 tablet by ORAL/FEEDING TUBE route every 6 hours as needed for up to 7 days. - pantoprazole DR (PROTONIX) 20 mg tablet Take 1 tablet by mouth DAILY (6 AM). - senna-docusate (SENNA-S) 8.6-50 mg per tablet Take 1 tablet by mouth twice daily. - potassium chloride ER (K-DUR, KLOR-CON) 20 mEq tablet Take 1 tablet by mouth once daily. - evolocumab (REPATHA PUSHTRONEX) 420 mg/3.5 mL Inject 3.5 mL subcutaneously once every month. - BRILINTA 90 mg tablet Take 90 mg by mouth twice daily. - aspirin, enteric coated (ASPIRIN, ENTERIC COATED) 81 mg EC tablet Take 81 mg by mouth once daily. - cetirizine (ZYRTEC) 10 mg tablet Take 10 mg by mouth as needed. - albuterol HFA (VENTOLIN HFA) 90 mcg/actuation inhaler Inhale 2 Puffs as instructed every 4 hours as needed for Wheezing/Shortness of Breath. - Multivitamin capsule Take 1 capsule by mouth once daily. 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] 02/18/2018 Status post transcatheter aortic valve replacem*04/23/2018 Nonrheumatic aortic valve stenosis [I35.0] 04/23/2018 Hyperlipidemia [E78.5] 04/23/2018 Coronary artery disease involving rosebud martinez*04/23/2018 TIA (transient ischemic attack) [G45.9] 04/23/2018 Obesity, Class I, BMI 30-34.9 [E66.9] 04/24/2018 Prostate disorder [N42.9] 04/26/2018 Discharge planning issues [Z02.9] 01/25/2021 Pre-op testing [Z01.818] 01/25/2021 On mechanically assisted ventilation (HCC) [Z99*01/26/2021 01/28/2021 Postoperative pain [G89.18] 01/26/2021 Coagulopathy (HCC) [D68.9] 01/26/2021 01/27/2021 Acute blood loss anemia [D62] 01/26/2021 01/28/2021 Postoperative hypotension [I95.81] 01/26/2021 01/28/2021 Atelectasis [J98.11] 01/27/2021 Paroxysmal atrial fibrillation (HCC) [I48.0] 01/28/2021 Hypervolemia [E87.70] 01/29/2021 SUMMARY [Z76.89] 01/31/2021 Encounter Status:Closed by NITZA MCQUEEN on 02/08/21 [facility] Office Visiton 12-22-2016 Documentation of current medications (procedure) Done Invalid Interpretation Code [facility] Work Phone: Clinical Lists Update: Prelo allocations clerk 12-20-2016 Hemoglobin A1c/Hemoglobin.total mass fraction (Bld) 5.7 % Invalid Interpretation Code [facility] Phone: [phone] Lab Report: Basic Metabolic Profile (BMP)on 12-20-2016 Anion gap 8 mmol/L Invalid Interpretation Code 5-15 [facility] Phone: [phone] BUN/Creatinine Ratio 19.2 RATIO Invalid Interpretation Code 10-20 [facility] Work Phone: [phone] Calcium 8.5 mg/dL Invalid Interpretation Code 8.5-10.1 [facility] Phone: [phone] Chloride 102 mmol/L Invalid Interpretation Code 98-107 [facility] Phone: [phone] CO2 29.0 mmol/L Invalid Interpretation Code 21.0-32.0 [facility] Phone: [phone] Creatinine 1.04 mg/dL Invalid Interpretation Code 0.70-1.30 [facility] Work Phone: [phone] eGFR (non-black) 76 mL/min/{1.73_m2} Invalid Interpretation Code >60 [facility] Phone: [phone] eGFR (non-black) 92 mL/min/{1.73_m2} Invalid Interpretation Code >60 [facility] Phone: [phone] Glucose mass conc 81 mg/dL Invalid Interpretation Code 70-110 [facility] Phone: [phone] Potassium molar conc 3.9 mmol/L Invalid Interpretation Code 3.5-5.1 [facility] Work Phone: [phone] Sodium 139 mmol/L Invalid Interpretation Code 136-145 [facility] Phone: [phone] Urea nitrogen 20 mg/dL High 7-18 [facility] Work Phone: [phone] Lab Report: CBC W/Diff, Auto matedon 12-20-2016 Absolute Neut 3.5 X10 3/UL Invalid Interpretation Code 2.0-7.7 [facility] Phone: [phone] Basophils/100 WBC Auto (Bld) 0.3 % Invalid Interpretation Code 0-1 [facility] Work Phone: [phone] Eosinophils/100 leukocytes 3.5 % Invalid Interpretation Code 0-5 [facility] Work Phone: [phone] Erythrocyte distribution width Auto Ratio (RBC) 13.3 % Invalid Interpretation Code 11.6-14.6 [facility] Work Phone: [phone] Erythrocytes (RBC) 4.77 10*6/uL Invalid Interpretation Code 4.6-6.2 [facility] Work Phone: [phone] Hematocrit (HCT) 41.6 % Invalid Interpretation Code 40-54 [facility] Work Phone: [phone] Hemoglobin mass conc (Bld) 14.4 g/dL Invalid Interpretation Code 13.0-16.5 [facility] Phone: [phone] Immature granulocytes/100 WBC (Bld) 0.000 % Invalid Interpretation Code 0.0-0.9 [facility] Phone: [phone] Lymphocytes 1.52 X10 3/UL Invalid Interpretation Code 0.83-4.51 [facility] Phone: [phone] Lymphocytes/100 leukocytes 26.3 % Invalid Interpretation Code 19-41 [facility] Phone: [phone] MCH 30.2 pg Invalid Interpretation Code 27.0-32.0 [facility] Phone: [phone] MCHC mass conc (RBC) 34.6 G/GL Invalid Interpretation Code 32-36 [facility] Work Phone: [phone] MCV 87.2 fL Invalid Interpretation Code 80-94 [facility] Work Phone: [phone] Monocytes/100 leukocytes 8.7 % Invalid Interpretation Code 0-10 [facility] Work Phone: [phone] Neutrophils/100 WBC Auto (Bld) 61.2 % Invalid Interpretation Code 47-70 [facility] Work Phone: [phone] Platelets 173 10*3/mm3 Invalid Interpretation Code 150-450 [facility] Work Phone: [phone] PMV by Vic 11.1 fL Invalid Interpretation Code 6.2-12.0 [facility] Work Phone: [phone] RDW SD 40.9 fL Invalid Interpretation Code 35.1-43.9 [facility] Phone: [phone] WBC (Leukocytes) 5.8 10*3/uL Invalid Interpretation Code 4.4-11.0 [facility] Phone: [phone] Lab Report: Lipid Profileon 12-20-2016 Cholesterol 130 mg/dL Invalid Interpretation Code 200 [facility] Work Phone: [phone] HDL Cholesterol 50 mg/dL Invalid Interpretation Code [facility] Work Phone: [phone] LDL Cholesterol 64 mg/dL Invalid Interpretation Code 0-130 [facility] Work Phone: [phone] Triglyceride 82 mg/dL Invalid Interpretation Code [facility] Work Phone: [phone] very low density lipoproteins 16 mg/dL Invalid Interpretation Code 5-40 [facility] Work Phone: [phone]) Lab Report: Liver Profileon 12-20-2016 Alanine aminotransferase (ALT) 23 U/L Invalid Interpretation Code 12-78 [facility] Work Phone: [phone] Albumin 3.3 g/dL Low 3.4-5.0 [facility] Work Phone: [phone] Alkaline phosphatase (ALP) 75 U/L Invalid Interpretation Code 45-117 [facility] Phone: [phone] Aspartate aminotransferase (AST) 20 U/L Invalid Interpretation Code 15-37 [facility] Phone: [phone] Bilirubin (direct) 0.15 mg/dL Invalid Interpretation Code 0.00-0.30 [facility] Work Phone: [phone] Bilirubin (total) 0.70 mg/dL Invalid Interpretation Code 0.20-1.00 [facility] Work Phone: [phone] Globulin 3.2 g/dL Invalid Interpretation Code 2.2-4.2 [facility] Work Phone: [phone] Protein 6.5 g/dL Invalid Interpretation Code 6.4-8.2 [facility] Work Phone: [phone] Lab Report: PSA,Total - Katie al Screenon 12-20-2016 PSA,TOT SCREEN 3.12 ng/mL Invalid Interpretation Code 0.00-4.00 [facility] Work Phone: [phone] Clinical Lists Update: Clini angel Noteon 07-11-2016 Left ventricular Ejection fraction 60 % Invalid Interpretation Code [facility] Work Phone: [phone] Office Visiton 06-22-2016 Documentation of current medications (procedure) Done Invalid Interpretation Code [facility] Work Phone: [phone] Fall risk assessment No Invalid Interpretation Code [facility] Work Phone: [phone]) Clinical Lists Update: Prelo allocations clerk 06-21-2016 Left ventricular Ejection fraction 65 % Invalid Interpretation Code [facility] Work Phone: [phone]) Lab Report: Vitamin D,25 Hyd roxyon 12-29-2015 vitamin D 25-hydroxy, serum 28.6 ng/mL Invalid Interpretation Code [facility] Work Phone: [phone] Vitamin D 25-OH 28.6 ng/mL Invalid Interpretation Code [facility] Work Phone: [phone] Clinical Lists Update: [facility] allocations clerk 12-28-2015 HbA1c 5.4 % Invalid Interpretation Code [facility] Work Phone: [phone]) Lab Report: Basic Metabolic Profile (BMP)on 12-28-2015 Anion gap 7 mmol/L Invalid Interpretation Code 5-15 [employer] Work Phone: [phone] BUN/Creatinine Ratio 18.7 RATIO Invalid Interpretation Code 10-20 [employer] Work Phone: [phone] Calcium 9.0 mg/dL Invalid Interpretation Code 8.5-10.1 [employer] Work Phone: [phone] Chloride 103 mmol/L Invalid Interpretation Code 98-107 [employer] Work Phone: [phone] CO2 29.0 mmol/L Invalid Interpretation Code 21.0-32.0 [employer] Work Phone: [phone] Creatinine 1.07 mg/dL Invalid Interpretation Code 0.70-1.30 [employer] Work Phone: [phone] eGFR (non-black) 89 mL/min/{1.73_m2} Invalid Interpretation Code >60 [employer] Work Phone: [phone] eGFR (non-black) 74 mL/min/{1.73_m2} Invalid Interpretation Code >60 [employer] Work Phone: [phone] Glucose 85 mg/dL Invalid Interpretation Code 70-110 [employer] Work Phone: [phone] Potassium 4.2 mmol/L Invalid Interpretation Code 3.5-5.1 [employer] Work Phone: [phone] Sodium 139 mmol/L Invalid Interpretation Code 136-145 [employer] Work Phone: [phone] Urea nitrogen 20 mg/dL High 7-18 [employer] Work Phone: [phone] Lab Report: CBC W/Diff, Auto matedon 12-28-2015 Basophils/100 leukocytes 0.4 % Invalid Interpretation Code 0-1 [employer] Phone: [phone] Eosinophils/100 leukocytes 3.2 % Invalid Interpretation Code 0-5 [employer] Phone: [phone] Erythrocytes (RBC) 4.98 10*6/uL Invalid Interpretation Code 4.6-6.2 [employer] Phone: [phone] Hematocrit (HCT) 42.9 % Invalid Interpretation Code 40-54 [employer] Phone: [phone] Hemoglobin (HGB) 14.6 g/dL Invalid Interpretation Code 13.0-16.5 [employer] Phone: [phone] immature granulocytes, percentage of total cells, blood 0.200 % Invalid Interpretation Code 0.0-0.9 [employer] Phone: [phone] Lymphocytes 1.67 X10 3/UL Invalid Interpretation Code 0.83-4.51 [employer] Phone: [phone] Lymphocytes/100 leukocytes 31.3 % Invalid Interpretation Code 19-41 [employer] Phone: [phone] MCH 29.3 pg Invalid Interpretation Code 27.0-32.0 [employer] Phone: [phone] MCHC 34.0 G/GL Invalid Interpretation Code 32-36 [employer] Phone: [phone] MCV 86.1 fL Invalid Interpretation Code 80-94 [employer] Phone: [phone] Monocytes/100 leukocytes 8.4 % Invalid Interpretation Code 0-10 [employer] Work Phone: [phone] neutrophil count, blood 3.0 X10 3/UL Invalid Interpretation Code 2.0-7.7 [employer] Phone: [phone] Neutrophils/100 leukocytes 56.5 % Invalid Interpretation Code 47-70 [employer] Work Phone: [phone] Platelets 195 10*3/mm3 Invalid Interpretation Code 150-450 [employer] Work Phone: [phone] PMV by Vic 10.4 fL Invalid Interpretation Code 6.2-12.0 [employer] Phone: [phone] RDW-CA 13.2 % Invalid Interpretation Code 11.6-14.6 [employer] Phone: [phone] red blood cell distribution width, size density 40.4 fL Invalid Interpretation Code 35.1-43.9 [employer] Work Phone: [phone] WBC (Leukocytes) 5.3 10*3/uL Invalid Interpretation Code 4.4-11.0 [employer] Phone: [phone] Lab Report: Lipid Profileon 12-28-2015 Cholesterol 152 mg/dL Invalid Interpretation Code 200 [employer] Phone: [phone] HDL Cholesterol 54 mg/dL Invalid Interpretation Code [employer] Phone: [phone] LDL Cholesterol 81 mg/dL Invalid Interpretation Code 0-130 [employer] Work Phone: [phone] Triglyceride 87 mg/dL Invalid Interpretation Code [employer] Phone: [phone] very low density lipoproteins 17 mg/dL Invalid Interpretation Code 5-40 [employer] Phone: [phone] Lab Report: Liver Profileon 12-28-2015 Alanine aminotransferase (ALT) 27 U/L Invalid Interpretation Code 12-78 [employer] Phone: [phone] Albumin 3.5 g/dL Invalid Interpretation Code 3.4-5.0 [employer] Phone: [phone] Alkaline phosphatase (ALP) 88 U/L Invalid Interpretation Code 45-117 [employer] Work Phone: [phone] Aspartate aminotransferase (AST) 24 U/L Invalid Interpretation Code 15-37 [employer] Phone: [phone] Bilirubin (direct) 0.13 mg/dL Invalid Interpretation Code 0.00-0.30 [employer] Work Phone: [phone] Bilirubin (total) 0.60 mg/dL Invalid Interpretation Code 0.20-1.00 [employer] [facility] Work Phone: [phone] Globulin 3.3 g/dL Invalid Interpretation Code 2.3-3.5 [employer] Work Phone: [phone] Protein 6.8 g/dL Invalid Interpretation Code 6.4-8.2 [employer] Phone: [phone] Lab Report: Thyroid Stim Hor francisco (TSH)on 12-28-2015 Thyroid stimulating hormone (TSH) 1.31 u[iU]/mL Invalid Interpretation Code 0.358-3.74 [employer] Phone: [phone] Office Visiton 03-16-2015 Alcoholism counseling (procedure) no Invalid Interpretation Code [facility] Phone: [phone] Tobacco use CPHS Never smoker Invalid Interpretation Code [facility] Phone: [phone] Lab Report: BNP,B-Type NATRI URETIC PEPTIDEon 12-24-2014 BNP 18.6 pg/mL Invalid Interpretation Code 0-100 [employer] Phone: [phone] Replaced Document: Shaye MAHER Observationson 12-09-2014 EKG QRS axis -6 deg Invalid Interpretation Code [facility] Phone: [phone] electrocardiogram interpretation Sinus Bradycardia WITHIN NORMAL LIMITS Invalid Interpretation Code [facility] Phone: [phone] GE use only - for [employer] import when terms are not otherwise specified 451 ms Invalid Interpretation Code [facility] Phone: [phone] Interpretation Sinus Bradycardia WITHIN NORMAL LIMITS Invalid Interpretation Code [facility] Phone: [phone] P [place] 39 deg Invalid Interpretation Code [facility] Phone: [phone] P wave axis, electrocardiogram 39 deg Invalid Interpretation Code [employer] Phone: [phone] WV Interval 196 ms Invalid Interpretation Code [facility] Work Phone: [phone] WV interval, electrocardiogram 196 ms Invalid Interpretation Code [facility] Work Phone: [phone] Pulse (Heart Rate) 58 /min Invalid Interpretation Code [employer] Work Phone: [phone] QRS axis, electrocardiogram -6 deg Invalid Interpretation Code [facility] [employer] Work Phone: [phone] QRS Duration 96 ms Invalid Interpretation Code [facility] [employer] Work Phone: [phone] QRS duration, electrocardiogram 96 ms Invalid Interpretation Code [facility] [employer] Work Phone: [phone] QT Interval new path ms Invalid Interpretation Code [facility] [employer] Work Phone: [phone] QT interval, electrocardiogram new path ms Invalid Interpretation Code [facility] [employer] Work Phone: [phone] QTc [place] 451 ms Invalid Interpretation Code [facility] Phone: [phone] T [place] 64 deg Invalid Interpretation Code [employer] Work Phone: [phone] T wave axis, electrocardiogram 64 deg Invalid Interpretation Code [facility] Phone: [phone] Office Visiton 06-02-2014 cardiac risk group C Invalid Interpretation Code [employer] Phone: [phone] General cardiovascular disease 10Y risk [#] [place].Estrlelita'Dinesh N/A Invalid Interpretation Code [employer] Phone: [phone] Clinical Lists Update: Prelo allocations clerk 09-25-2013 basophils as percent of blood leukocytes, manual count 0.3 % Invalid Interpretation Code [employer] Phone: [phone] eGFR (non-black) 87 mL/min/{1.73_m2} Invalid Interpretation Code [employer] Work Phone: [phone] eGFR (non-black) 72 mL/min/{1.73_m2} Invalid Interpretation Code [employer] Phone: [phone] eosinophils as percent of blood leukocytes, manual count 0.3 % Invalid Interpretation Code [employer] Phone: [phone] neutrophils, band form as percent of blood leukocytes, manual count 50.9 % Invalid Interpretation Code [facility] Work Phone: [phone] External Other: Preferred Me thod of Contacton 05-27-2013 methcontact secmsg Invalid Interpretation Code [facility] Work Phone: [phone] Patient's prefered method of contact secmsg Invalid Interpretation Code [facility] Work Phone: [phone] Lab Report: MGon 11-14-2012 Magnesium 2.0 mg/dL Normal 1.8-2.4 [facility] Work Phone: [phone] Replaced Document: Shaye MAHER Observationson 01-18-2012 Pulse (Heart Rate) 493 ms Invalid Interpretation Code [facility] Work Phone: [phone] Vital Signs Date Time Vital Sign Value Performing Clinician Facility 06-25-2024 08:38-0400 Body height 162.56 cm Gatito eLon MD Work Phone: [facility] 06-25-2024 08:38-0400 Body weight 78.01 kg Gatito Leon MD Work Phone: [facility] 06-11-2024 09:20-0400 Body weight 78.69 kg Gatito Leon MD Work Phone: [facility] 05-28-2024 11:34-0400 Body height 162.56 cm Gatito Leon MD Work Phone: [facility] 05-28-2024 11:34-0400 Body weight 78.69 kg Gatito Leon MD Work Phone: [facility] 04-28-2024 08:47-0400 Body mass index (BMI) [Ratio] 29.7 kg/m2 Gatito Leon MD Work Phone: [facility] 04-28-2024 08:39-0400 Body height 162.56 cm Gatito Leon MD Work Phone: [facility] 04-28-2024 08:39-0400 Body weight 78.47 kg Gatito Leon MD Work Phone: [facility] 04-28-2024 08:22-0400 Diastolic blood pressure 59 mm[Hg] Gatito Leon MD Work Phone: [facility] 04-28-2024 08:22-0400 Heart rate 64 /min Gatito Leon MD Work Phone: [facility] 04-28-2024 08:22-0400 SaO2% (BldA) [Mass fraction] 100 % Gatito Leon MD Work Phone: [facility] 04-28-2024 08:22-0400 Systolic blood pressure 99 mm[Hg] Gatito Leon MD Work Phone: [facility] 04-23-2024 07:56-0500 Body height 162.6 cm Guadalupe Leach BACK PAD INSPECTOR.RETINAL ANGIOGRAPHER Work Phone: [facility] 04-23-2024 07:56-0500 Body mass index (BMI) [Ratio] 29.7 kg/m2 Guadalupe Leach BACK PAD INSPECTOR.RETINAL ANGIOGRAPHER Work Phone: [facility] 04-23-2024 07:56-0500 Body weight 78.47 kg Guadalupe Leach BACK PAD INSPECTOR.RETINAL ANGIOGRAPHER Work Phone: [facility] 04-23-2024 07:56-0500 Diastolic blood pressure 59 mm[Hg] Guadalupe Leach BACK PAD INSPECTOR.RETINAL ANGIOGRAPHER Work Phone: [facility] 04-23-2024 07:56-0500 Heart rate 64 /min Guadalupe Leach BACK PAD INSPECTOR.RETINAL ANGIOGRAPHER Work Phone: [facility] 04-23-2024 07:56-0500 Respiratory rate 18 /min Guadalupe Leach BACK PAD INSPECTOR.RETINAL ANGIOGRAPHER Work Phone: [facility] 04-23-2024 07:56-0500 SaO2% (BldA) [Mass fraction] 100 % Guadalupe Leach BACK PAD INSPECTOR.RETINAL ANGIOGRAPHER Work Phone: [facility] Comment on above: RA 04-23-2024 07:56-0500 Systolic blood pressure 99 mm[Hg] Guadalupe Leach BACK PAD INSPECTOR.RETINAL ANGIOGRAPHER Work Phone: [facility] 01-05-2023 11:39-0500 Body temperature 97.6 [degF] Dr. Gianni Vargas Work Phone: [facility] 01-05-2023 11:39-0500 Diastolic blood pressure 72 mm[Hg] Dr. Gianni Vargas Work Phone: [facility] 01-05-2023 11:39-0500 Heart rate 51 /min Dr. Gianni Vargas Work Phone: [facility] 01-05-2023 11:39-0500 Respiratory rate 16 /min Dr. Gianni Vargas Work Phone: [facility] 01-05-2023 11:39-0500 SaO2% (BldA) [Mass fraction] 98 % Dr. Gianni Vargas Work Phone: [facility] 01-05-2023 11:39-0500 Systolic blood pressure 106 mm[Hg] Dr. Gianni Vargas Work Phone: [facility] 01-05-2023 10:20-0500 Body height 162.[address] Gianni Vargas Work Phone: [facility] 01-05-2023 10:20-0500 Body mass index (BMI) [Ratio] 29.1 kg/m2 Dr. Gianni Vargas Work Phone: [facility] 01-05-2023 10:20-0500 Body weight [address] Gianni Vargas Work Phone: [facility] 12-04-2022 08:02-0400 Body mass index (BMI) [Ratio] 30.2 kg/m2 Dr. Gianni Vargas Work Phone: [facility] 12-04-2022 08:02-0400 Body temperature 96.8 [degF] Dr. Gianni Vargas Work Phone: [facility] 12-04-2022 08:02-0400 Body weight [address] Gianni Vargas Work Phone: [facility] 12-04-2022 08:02-0400 Diastolic blood pressure 70 mm[Hg] Dr. Gianni Vargas Work Phone: [facility] 12-04-2022 08:02-0400 Heart rate 62 /min Dr. Gianni Vargas Work Phone: [facility] 12-04-2022 08:02-0400 Respiratory rate 17 /min Dr. Gianni Vargas Work Phone: [facility] 12-04-2022 08:02-0400 SaO2% (BldA) [Mass fraction] 99 % Dr. Gianni Vargas Work Phone: [facility] 12-04-2022 08:02-0400 Systolic blood pressure 121 mm[Hg] Dr. Gianni Vargas Work Phone: [facility] 11-12-2022 10:35-0400 Body mass index (BMI) [Ratio] 29.7 kg/m2 Dr. Gianni Vargas Work Phone: [facility] 11-12-2022 10:35-0400 Body temperature 98.4 [degF] Dr. Gianni Vargas Work Phone: [facility] 11-12-2022 10:35-0400 Body weight 78.[address] Gianni Vargas Work Phone: [facility] 11-12-2022 10:35-0400 Diastolic blood pressure 72 mm[Hg] Dr. Gianni Vargas Work Phone: [facility] 11-12-2022 10:35-0400 Heart rate 58 /min Dr. Gianni aVrgas Work Phone: [facility] 11-12-2022 10:35-0400 Respiratory rate 16 /min Dr. Gianni Vargas Work Phone: [facility] 11-12-2022 10:35-0400 SaO2% (BldA) [Mass fraction] 97 % Dr. Gianni Vargas Work Phone: [facility] 11-12-2022 10:35-0400 Systolic blood pressure 112 mm[Hg] Dr. Gianni Vargas Work Phone: [facility] 05-05-2022 12:23-0400 Body height 162.6 cm Kurtis Hastings MD Work Phone: [facility] 05-05-2022 12:23-0400 Body weight 77.11 kg Kurtis Hastings MD Work Phone: [facility] 05-05-2022 12:23-0400 Diastolic blood pressure 72 mm[Hg] Kurtis Hastings MD Work Phone: [facility] 05-05-2022 12:23-0400 Heart rate 59 /min Kurtis Hastings MD Work Phone: [facility] 05-05-2022 12:23-0400 SaO2% (BldA) [Mass fraction] 100 % Kurtis Hastings MD Work Phone: [facility] 05-05-2022 12:23-0400 Systolic blood pressure 107 mm[Hg] Kurtis Hastings MD Work Phone: [facility] 06-19-2021 00:37-0400 Body weight 76.[address] [facility] Work Phone: 06-06-2021 13:15-0400 Body height 162.[address] [facility] Work Phone: 06-06-2021 13:15-0400 Body weight 76.[address] [facility] Work Phone: 05-09-2021 13:25-0400 Body height 162.[address] [facility] Work Phone: 05-09-2021 13:25-0400 Body weight 77.[address] [facility] Work Phone: 04-12-2021 07:52-0500 Body weight 73.[address] [facility] Work Phone: 04-12-2021 07:31-0500 Body mass index (BMI) [Ratio] 28.5 kg/m2 [facility] Work Phone: 04-12-2021 07:31-0500 Body temperature 98.2 [degF] [facility] Work Phone: 04-12-2021 07:31-0500 Diastolic blood pressure 63 mm[Hg] [facility] Work Phone: 04-12-2021 07:31-0500 Heart rate 65 /min [facility] Work Phone: 04-12-2021 07:31-0500 Respiratory rate 14 /min [facility] Work Phone: 04-12-2021 07:31-0500 SaO2% (BldA) [Mass fraction] 95 % [facility] Work Phone: 04-12-2021 07:31-0500 Systolic blood pressure 101 mm[Hg] [facility] Work Phone: 12-22-2016 08:23-0400 BMI (Body Mass Index) 28.49 kg/m2 [facility] Work Phone: 12-22-2016 08:23-0400 BP Diastolic 60 mm[Hg] [facility] Work Phone: 12-22-2016 08:23-0400 BP Systolic 120 mm[Hg] [facility] Work Phone: 12-22-2016 08:23-0400 [facility] Work Phone: 12-22-2016 08:23-0400 Pulse (Heart Rate) 60 /min [facility] [employer] [facility] [employer] [facility] Work Phone: 12-22-2016 08:23-0400 Respiratory Rate 16 /min [facility] Work Phone: 12-22-2016 08:23-0400 Weight [facility].3 kg [facility] Work Phone: 06-22-2016 10:37-0400 BMI (Body Mass Index) 29.07 kg/m2 [facility] Work Phone: 06-22-2016 10:37-0400 BP Diastolic 58 mm[Hg] [facility] Work Phone: 06-22-2016 10:37-0400 BP Systolic 130 mm[Hg] [facility] Work Phone: 06-22-2016 10:37-0400 Height 162.56 cm [facility] Work Phone: 06-22-2016 10:37-0400 Pulse (Heart Rate) 74 /min [facility] Work Phone: 06-22-2016 10:37-0400 Respiratory Rate 17 /min [facility] Work Phone: 06-22-2016 10:37-0400 Weight 76.84 kg [facility] Work Phone: 12-24-2015 14:36-0400 BSA (Body Surface Area) 1.8 m2 [facility] Work Phone: Encounters Encounter Date Encounter Type Care Provider Facility Start: 08-08-2024 End: 08-08-2024 Refill Kurtis Hastings MD Work Phone: Cardiology Comment on above: Refill Request Start: 07-25-2024 ambulatory DARLING HULL Facility:[facility] Start: 07-18-2024 End: 07-19-2024 ambulatory Gatito Leon MD Work Phone: [facility] Work Phone: Start: 07-18-2024 End: 07-19-2024 Discharged Mika HULL MD -Cardiac Rehab Work Phone: Start: 07-10-2024 End: 07-10-2024 ambulatory GATITO LEON Facility:[facility] Start: 06-18-2024 End: 06-18-2024 ambulatory DARLING HULL Facility:[facility] Start: 06-18-2024 End: 06-18-2024 Discharged Recurring DARLING HULL MD -Cardiac Rehab Work Phone: Start: 06-02-2024 End: 06-02-2024 ambulatory Gatito Leon MD Work Phone: [facility] Work Phone: Start: 06-02-2024 End: 06-02-2024 Discharged Recurring Tino Ac MD -Physical Therapy Work Phone: Start: 06-02-2024 Registered Recurring DARLING HULL MD - Cardiac Rehab Work Phone: Start: 05-19-2024 Registered Recurring Tino Ac MD - Physical Therapy Work Phone: Start: 05-19-2024 End: 05-19-2024 ambulatory Gatito Leon MD Work Phone: [facility] Work Phone: Start: 05-19-2024 End: 05-19-2024 Discharged Recurring DARLING HULL MD -Cardiac Rehab Work Phone: Start: 05-07-2024 Registered Recurring DARLING HULL MD - Cardiac Rehab Work Phone: Start: 05-06-2024 Registered Recurring Tino Ac MD - Physical Therapy Work Phone: Start: 04-28-2024 End: 04-28-2024 ambulatory Gatito Leon MD Work Phone: [facility] Work Phone: Start: 04-28-2024 End: 04-28-2024 Patient encounter procedure DARLING HULL MD -Cardiac Rehab Work Phone: Start: 04-28-2024 End: 04-28-2024 ambulatory DARLING HULL Facility:[facility] Start: 04-23-2024 End: 04-23-2024 Telephone encounter Kurtis Hastings MD Work Phone: Cardiology Comment on above: Pt request Refill Request Start: 04-23-2024 End: 04-23-2024 Patient encounter procedure Guadalupe torres Ventura SUMNER.RETINAL ANGIOGRAPHER Work Phone: Cardiology Comment on above: 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 (Primary Dx); S/P CABG (coronary artery bypass graft); S/P drug eluting coronary stent placement; S/P TAVR (transcatheter aortic valve replacement); Mixed hyperlipidemia; First degree AV block Start: 04-23-2024 End: 04-23-2024 ambulatory GUADALUPE LEACH Facility:[facility] Start: 04-14-2024 End: 04-15-2024 ambulatory RON GORGE Facility:[facility] Start: 04-11-2024 End: 04-11-2024 Orders Only Kavitha Bingham BACK PAD INSPECTOR.RETINAL ANGIOGRAPHER Work Phone: Cardiology Comment on above: S/P drug eluting cor onary stent placement (Primary Dx); H/O coronary artery bypass surgery; Mixed hyperlipidemia; 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) Start: 04-08-2024 End: 04-08-2024 ambulatory KURTIS DARLING Facility:[facility] Start: 04-08-2024 End: 04-15-2024 Evaluation and management of inpatient [facility] Facility:[facility] Start: 04-07-2024 End: 04-07-2024 Telephone encounter Kurtis Hastings MD Work Phone: Cardiology Comment on above: Patient Education Start: 04-04-2024 ambulatory GATITO LEON Facility:[facility] Start: 04-04-2024 End: 04-04-2024 Subsequent hospital visit by physician Card Lab Stress [facility] Comment on above: 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 with angina pectoris (HCC) [I25.119] Start: 04-02-2024 End: 04-02-2024 ambulatory YOAN JAIR Facility:[facility] Start: 04-01-2024 End: 04-01-2024 ambulatory Yoan Adam BACK PAD INSPECTOR.RETINAL ANGIOGRAPHER Work Phone: Cardiology Comment on above: 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 Gatito Leon MD [facility] Work Phone: Start: 03-01-2024 End: 03-01-2024 ambulatory Chalon Edward Facility:[facility] Start: 02-08-2024 End: 02-08-[address] [facility] Start: 02-08-2024 End: 02-08-2024 ambulatory Chalon Edward Facility:[facility] Start: 12-24-2023 End: 12-24-2023 ambulatory Chalon Edward Facility:[facility] Start: 12-17-2023 End: 12-17-2023 Refill Kurtis Hastings MD Work Phone: Cardiology Comment on above: Refill Request Start: 12-07-2023 End: 12-07-2023 ambulatory Chalon Edward Facility:[facility] Start: 11-21-2023 ambulatory Chalon Edward Facility:[facility] Start: 11-09-2023 End: 11-09-2023 ambulatory Chalon Edward Facility:[facility] Start: 09-06-2023 End: 09-06-2023 ambulatory KURTIS HASTINGS Facility:[facility] Start: 08-31-2023 Refill Kurtis Hastings MD Work Phone: Cardiology Comment on above: Refill Request Start: 08-13-2023 Telephone encounter Kurtis Hastings MD Work Phone: Cardiology Start: 08-10-2023 End: 08-10-2023 ambulatory KURTIS HASTINGS Facility:[facility] Start: 08-10-2023 End: 08-10-2023 Patient encounter procedure Kurtis Hastings MD Work Phone: Cardiology Comment on above: S/P AVR (Primary Dx) ; Hx of CABG; Dyslipidemia Start: 08-10-2023 End: 08-10-2023 Telemedicine consultation with patient Kurtis Hastings MD Work Phone: Cardiology Start: 08-06-2023 End: 08-06-2023 ambulatory KURTIS HASTINGS Facility:[facility] Start: 07-23-2023 Refill Kurtis Hastings MD Work Phone: Cardiology Comment on above: Refill Request Start: 06-25-2023 Refill Kurtis Hastings MD Work Phone: Cardiology Comment on above: Refill Request Start: 06-20-2023 Telephone encounter Kurtis Hastings MD Work Phone: Cardiology Comment on above: Appointment Start: 01-05-2023 Non-patient / Non-visit Dr. Patricia Vargas Work Phone: [facility] Start: 01-05-2023 End: 01-05-2023 Admission to same day surgery center Dr. Gianni Vargas Work Phone: [facility] Work Phone: Start: 01-05-2023 End: 01-05-[address] Gianni Vargas Work Phone: [facility] Work Phone: Start: 01-02-2023 Telephone encounter Kurtis Hastings MD Work Phone: Cardiology Comment on above: Anticoagulation Start: 12-12-2022 Telephone encounter Kurtis Hastings MD Work Phone: Cardiology Comment on above: Medication Question Start: 12-04-2022 End: 12-04-[address] Gianni Vargas Work Phone: [facility] Work Phone: Start: 11-17-2022 Telephone encounter Kurtis Hastings MD Work Phone: Cardiology Comment on above: Medication Authoriza tion (repatha) Start: 11-12-2022 End: 11-12-[address] Gianni Vargas Work Phone: [facility] Work Phone: Start: 10-12-2022 Telephone encounter Kurtis Hastings MD Work Phone: Cardiology Comment on above: Medication Authoriza tion Start: 07-21-2022 Refill Kurtis Hastings MD Work Phone: Cardiology Comment on above: Refill Request Start: 05-29-2022 End: 05-29-2022 ambulatory [facility] Work Phone: Start: 05-29-2022 End: 05-29-2022 Patient encounter procedure [facility]Laboratory Start: 05-05-2022 End: 05-05-2022 Patient encounter procedure Kurtis Hastings MD Work Phone: Cardiology Comment on above: S/P AVR (Primary Dx) ; S/P CABG x 3; Dyslipidemia; Elevated lipoprotein(a) Start: 03-30-2022 Orders Only Kurtis Hastings MD Work Phone: Cardiology Start: 03-18-2022 Telephone encounter Kurtis Hastings MD Work Phone: Cardiology Comment on above: Medication Authoriza tion (repatha) Start: 03-10-2022 Telephone encounter Kurtis Hastings MD Work Phone: Cardiology Comment on above: Patient Update Start: 03-09-2022 ambulatory Bc Maradiaga APRN.RETINAL ANGIOGRAPHER Work Phone: Cardiology Comment on above: Repatha Start: 03-09-2022 E-mail encounter fro m caregiver Bc Maradiaga APRN.RETINAL ANGIOGRAPHER Work Phone: [facility] Start: 03-02-2022 Telephone encounter Kurtis Hastings MD Work Phone: Cardiology Comment on above: Medication Authoriza tion (Repatha) Start: 03-01-2022 Telephone encounter Kurtis Hastings MD Work Phone: Cardiology Comment on above: Patient Question Start: 02-14-2022 Refill Kurtis Hastings MD Work Phone: Cardiology Comment on above: Refill Request Start: 11-02-2021 End: 11-02-2021 ambulatory [facility] Work Phone: Start: 11-02-2021 End: 11-02-2021 Patient encounter procedure [facility] Start: 07-27-2021 Refill Kurtis Hastings MD Work Phone: Cardiology Comment on above: Refill Request Start: 07-08-2021 End: 07-19-2021 Discharged Recurring [facility]Cardiac Re[facility] Start: 06-17-2021 End: 06-18-2021 Discharged Recurring [facility] Start: 06-08-2021 Registered Recurring [facility] Start: 05-18-2021 End: 05-19-2021 Discharged Recurring [facility] Start: 04-18-2021 End: 04-18-2021 Discharged Recurring [facility] Start: 04-14-2021 End: 04-14-2021 Patient encounter procedure [facility]Labor[facility] Start: 04-12-2021 End: 04-12-2021 Patient encounter procedure [facility] Start: 01-25-2021 Patient encounter status Kurtis Hastings MD Work Phone: [facility] Procedures Date Procedure Procedure Detail Performing Clinician Start: 07-10-2024 Lipid 1996 panel - S tolu or Plasma Kurtis Hastings MD Work Phone: Start: 04-08-2024 History of coronary artery bypass grafting H/O coronary artery bypass surgery Kavitha Zachery BACK PAD INSPECTOR.RETINAL ANGIOGRAPHER Work Phone: Start: 04-08-2024 History of placement of stent for coronary artery disease S/P drug eluting coronary stent placement Kavitha Bingham BACK PAD INSPECTOR.RETINAL ANGIOGRAPHER Work Phone: Start: 04-04-2024 Echo tthrc r-t 2d w/wom-mode compl spec&colr d Yoan Adam BACK PAD INSPECTOR.RETINAL ANGIOGRAPHER Work Phone: Start: 04-02-2024 Lipid 1996 panel - S tolu or Plasma [facility] Start: 03-01-2024 MRI of joint of lowe r extremity Gatito Leon MD Work Phone: Start: 02-08-2024 Plain X-ray of shoulder Gatito Leon MD Work Phone: Start: 09-06-2023 Lipid 1996 panel - S tolu or Plasma Kurtis Hastings MD Work Phone: Start: 01-05-[address] Gianni genao Work Phone: Start: 05-05-2022 Lipid 1996 panel - S tolu or Plasma Kurtis Hastings MD Work Phone: Start: 11-02-2021 Plain chest X-ray Start: 01-26-2021 History of coronary artery bypass grafting H/O coronary artery bypass surgery Comment on above: CABG x 3: SVG-LAD, S VG-OM1, SVG-RPDA 06/23/2010; Re-Do x 3 Redo Biobentall (25mm Konect), CABG x 3: (Radial-PDA, SVG-OM1, SVG-OM2) 01/26/2021 Start: 01-19-2020 History of placement of stent for coronary artery disease History of coronary artery stent placement Comment on above: PCI-MELVIN-Mid SVG-OM1 w/ 3.0 x 12 mm Synergy MR Stent 12/03/17; RSZ-GKJ-Ulbnhe LM and Ostial LCx w/ 3.0 x 24 mm Synergy Stent 01/30/19; VIF-ZECM-HKP-Ostial LCx, CXK-FRP-Jlvn SVG-LAD w/ 4. x 16 mm Synergy Stent and Mid SVG-LAD w/ 4.0 x 32 mm Synergy Stent. 01/19/2020 Start: 12-22-2016 End: 01-02-2017 Carotid duplex Sameer Guzman MD Start: 12-22-2016 End: 12-22-2016 BRINDA Guzman MD Start: 12-22-2016 End: 12-22-2016 Follow Up Appt 1 year Sameer Guzman MD Start: 06-26-2016 End: 12-20-2016 *Hepatic Function Panel Jannet Palmer TICKET SCHEDULER Work Phone: Start: 06-26-2016 End: 12-20-2016 Lipid 1996 panel - Serum or Plasma Jannet Palmer TICKET SCHEDULER Work Phone: Start: 06-22-2016 End: 12-14-2016 BRINDA Guzman MD Start: 06-22-2016 End: 07-11-2016 Echocardiography Sameer Guzman MD Start: 06-22-2016 End: 12-14-2016 Follow Up Appt 6 months Zaira Rand Start: 06-22-2016 End: 07-11-2016 Echocardiography Sameer Guzman MD Start: 12-24-2015 End: 12-28-2015 *Hepatic Function Panel Zaira Rand Start: 12-24-2015 End: 12-24-2015 BRINDA Guzman MD Start: 12-24-2015 End: 12-24-2015 Follow Up Appt 6 months Zaira Rand Start: 12-24-2015 End: 12-28-2015 Lipid 1996 panel - Serum or Plasma Sameer Guzman MD Start: 12-24-2015 End: 12-28-2015 *Hepatic Function Panel Zaira Rand Start: 12-24-2015 End: 12-24-2015 TAX ATTORNEY Sameer Guzman MD Start: 12-24-2015 End: 12-24-2015 Follow Up Appt 6 months SameerZiara Dial Start: 12-24-2015 End: 12-28-2015 Lipid panel [AGGREGATE] Zaira Rand Start: 12-20-2015 End: 12-28-2015 *Hepatic Function Panel Zaira Rand Start: 12-20-2015 End: 12-28-2015 Lipid 1996 panel - Serum or Plasma Sameer Guzman MD Start: 12-20-2015 End: 12-28-2015 *Hepatic Function Panel Zaira Rand Start: 12-20-2015 End: 12-28-2015 Lipid panel [AGGREGATE] Zaira Rand Start: 06-08-2015 End: 06-21-2015 *Hepatic Function Panel Zaira Rand Start: 06-08-2015 End: 06-08-2015 Follow Up Appt 6 months Zaira Rand Start: 06-08-2015 End: 06-21-2015 Lipid 1996 panel - Serum or Plasma Sameer Guzman MD Start: 06-08-2015 End: 06-08-2015 MM Sameer Guzman MD Start: 06-08-2015 End: 06-21-2015 *Hepatic Function Panel Zaira Rand Start: 06-08-2015 End: 06-08-2015 Follow Up Appt 6 months Zaira Rand Start: 06-08-2015 End: 06-21-2015 Lipid panel [AGGREGATE] Zaira Rand Start: 06-08-2015 End: 06-08-2015 MM Sameer Guzman MD Start: 03-22-2015 End: 06-21-2015 *Hepatic Function Panel Courtney herrera PA-C Work Phone: Start: 03-22-2015 End: 06-21-2015 Lipid 1996 panel - Serum or Plasma Courtney Carter PA-C Work Phone: Start: 03-22-2015 End: 06-21-2015 *Hepatic Function Panel Courtney herrera PA-C Work Phone: Start: 03-22-2015 End: 06-21-2015 Lipid panel [AGGREGATE] Courtney herrera PA-C Work Phone: Start: 12-21-2014 End: 12-24-2014 *BMP Courtney Carter PA-C Work Phone: Start: 12-21-2014 End: 12-24-2014 *CBC with Differential Courtney galvez PA-C Work Phone: Start: 12-21-2014 End: 12-24-2014 Natriuretic peptide B [Mass/volume] in Blood Courtney Carter PA-C Work Phone: Start: 12-21-2014 End: 12-24-2014 *BMP Courtney Carter PA-C Work Phone: Start: 12-21-2014 End: 12-24-2014 *CBC with Differential Courtney galvez PA-C Work Phone: Start: 12-21-2014 End: 12-24-2014 BNP Courtney Carter PA-C Work Phone: Start: 12-09-2014 End: 12-24-2014 *Hepatic Function Panel Courtney herrera PA-C Work Phone: Start: 12-09-2014 End: 12-09-2014 TAX ATTORNEY Courtney Carter PA-C Work Phone: Start: 12-09-2014 End: 12-10-2014 Documentation of current medications Courtney Carter PA-C Work Phone: Start: 12-09-2014 End: 12-16-2014 Echocardiography Courtney Carter PA-C Work Phone: Start: 12-09-2014 End: 12-09-2014 Follow Up Appt 6 months Courtney herrera PA-C Work Phone: Start: 12-09-2014 End: 12-24-2014 Lipid 1996 panel - Serum or Plasma Courtney Carter PA-C Work Phone: Start: 12-09-2014 End: 12-16-2014 Nuclear stress test -exercise Courtney Carter PA-C Work Phone: Start: 12-09-2014 End: 12-24-2014 *Hepatic Function Panel Courtney herrera PA-C Work Phone: Start: 12-09-2014 End: 12-09-2014 TAX ATTORNEY Courtney Carter PA-C Work Phone: Start: 12-09-2014 End: 12-10-2014 Documentation of current medications Courtney Carter PA-C Work Phone: Start: 12-09-2014 End: 12-16-2014 Echocardiography Courtney Carter PA-C Work Phone: Start: 12-09-2014 End: 12-09-2014 Follow Up Appt 6 months Courtney herrera PA-C Work Phone: Start: 12-09-2014 End: 12-24-2014 Lipid panel [AGGREGATE] Courtney herrera PA-C Work Phone: Start: 12-09-2014 End: 12-16-2014 Nuclear stress test -exercise Courtney Carter PA-C Work Phone: Start: 12-02-2014 End: 12-09-2014 *Hepatic Function Panel Courtney herrera PA-C Work Phone: Start: 12-02-2014 End: 12-09-2014 Lipid 1996 panel - Serum or Plasma Courtney Carter PA-C Work Phone: Start: 12-02-2014 End: 12-09-2014 *Hepatic Function Panel Courtney herrera PA-C Work Phone: Start: 12-02-2014 End: 12-09-2014 Lipid panel [AGGREGATE] Courtney herrera PA-C Work Phone: Start: 06-02-2014 End: 06-02-2014 *Hepatic Function Panel Courtney herrera PA-C Work Phone: Start: 06-02-2014 End: 06-03-2014 Documentation of current medications Sameer Guzman MD Start: 06-02-2014 End: 06-02-2014 Follow Up Appt 6 months Zaira Rand Start: 06-02-2014 End: 06-02-2014 Lipid 1996 panel - Serum or Plasma Courtney Carter PA-C Work Phone: Start: 06-02-2014 End: 06-02-2014 MMM Sameer Guzman MD Start: 06-02-2014 End: 06-02-2014 *Hepatic Function Panel Courtney herrera PA-C Work Phone: Start: 06-02-2014 End: 06-03-2014 Documentation of current medications Sameer Guzman MD Start: 06-02-2014 End: 06-02-2014 Follow Up Appt 6 months Zaira Rand Start: 06-02-2014 End: 06-02-2014 Lipid panel [AGGREGATE] Courtney herrera PA-C Work Phone: Start: 06-02-2014 End: 06-02-2014 KWAKU Guzman MD Start: 11-24-2013 End: 12-09-2014 TAX ATTORNEY Courtney Carter PA-C Work Phone: Start: 11-24-2013 End: 12-09-2014 Follow Up Appt 6 months Courtney herrera PA-C Work Phone: Start: 11-24-2013 End: 12-09-2014 BRINDA Carter PA-C Work Phone: Start: 11-24-2013 End: 12-09-2014 Follow Up Appt 6 months Courtney herrera PA-C Work Phone: Start: 10-20-2013 End: 11-21-2013 *Hepatic Function Panel Zaira Rand Start: 10-20-2013 End: 11-21-2013 Lipid 1996 panel - Serum or Plasma Sameer Guzman MD Start: 10-20-2013 End: 11-21-2013 *Hepatic Function Panel Zaira Rand Start: 10-20-2013 End: 11-21-2013 Lipid panel [AGGREGATE] Zaira Rand Start: 05-27-2013 End: 05-27-2013 Follow Up Appt 6 months Zaira Rand Start: 05-27-2013 End: 05-27-2013 KWAKU Guzman MD Start: 05-27-2013 End: 05-27-2013 Follow Up Appt 6 months Zaira Rand Start: 05-27-2013 End: 05-27-2013 MM Sameer Guzman MD Start: 04-19-2013 End: 04-28-2013 *Hepatic Function Panel Zaira Rand Start: 04-19-2013 End: 04-28-2013 Lipid 1996 panel - Serum or Plasma Sameer Guzman MD Start: 04-19-2013 End: 04-28-2013 *Hepatic Function Panel Zaira Rand Start: 04-19-2013 End: 04-28-2013 Lipid panel [AGGREGATE] Zaira Rand Start: 11-19-2012 End: 11-19-2012 BRINDA Guzman MD Start: 11-19-2012 End: 11-19-2012 Follow Up Appt 6 months Zaira Rand Start: 11-19-2012 End: 11-19-2012 BRINDA Guzman MD Start: 11-19-2012 End: 11-19-2012 Follow Up Appt 6 months Zaira Rand Start: 11-04-2012 End: 11-17-2012 *Hepatic Function Panel Zaira Rand Start: 11-04-2012 End: 11-14-2012 Lipid 1996 panel - Serum or Plasma Sameer Guzman MD Start: 11-04-2012 End: 11-17-2012 *Hepatic Function Panel Zaira Rand Start: 11-04-2012 End: 11-14-2012 Lipid panel [AGGREGATE] Zaira Rand Start: 05-06-2012 End: 11-14-2012 *BMP Adebayo Hirsch MD Start: 05-06-2012 End: 05-06-2012 Follow Up Appt 6 months Adebayo Hirsch MD Start: 05-06-2012 End: 11-14-2012 Magnesium [Mass/volume] in Serum or Plasma Adebayo Hirsch MD Start: 05-06-2012 End: 11-14-2012 *BMP Adebayo Hirsch MD Start: 05-06-2012 End: 05-06-2012 Follow Up Appt 6 months Adebayo Hirsch MD Start: 05-06-2012 End: 11-14-2012 Magnesium Adebayo Hirsch MD Start: 04-03-2012 End: 04-17-2012 *Hepatic Function Panel Adebayo Hirsch MD Start: 04-03-2012 End: 04-17-2012 Lipid 1996 panel - Serum or Plasma Adebayo Hirshc MD Start: 04-03-2012 End: 04-17-2012 *Hepatic Function Panel Adebayo Hirsch MD Start: 04-03-2012 End: 04-17-2012 Lipid panel [AGGREGATE] Adebayo Hirsch MD Start: 01-18-2012 End: 01-18-2012 Ecg routine ecg w/least 12 lds w/i&r Adebayo Hirsch MD Start: 01-18-2012 End: 01-25-2012 Echocardiography Adebayo Hirsch MD Start: 01-18-2012 End: 01-18-2012 Follow Up Appt 4 months Adebayo Hirsch MD Start: 01-18-2012 End: 01-25-2012 Echocardiography Adebayo Hirsch MD Start: 01-18-2012 End: 01-18-2012 Electrocardiogram, complete Adebayo Hirsch MD Start: 01-18-2012 End: 01-18-2012 Follow Up Appt 4 months Adebayo Hirsch MD Start: 12-22-2011 Colonoscopy Kurtis Hastings MD Work Phone: Start: 09-20-2011 End: 10-24-2011 *Hepatic Function Panel Adebayo Hirsch MD Start: 09-20-2011 End: 10-24-2011 Lipid 1996 panel - Serum or Plasma Adebayo Hirsch MD Start: 09-20-2011 End: 10-24-2011 *Hepatic Function Panel Adebayo Hirsch MD Start: 09-20-2011 End: 10-24-2011 Lipid panel [AGGREGATE] Adebayo Hirsch MD Start: 07-20-2011 End: 07-24-2011 Follow Up Appt 6 months Adebayo Hirsch MD Start: 07-20-2011 End: 07-24-2011 Follow Up Appt 6 months Adebayo Hirsch MD Start: 03-29-2011 End: 04-13-2011 *Hepatic Function Panel Adebayo Hirsch MD Start: 03-29-2011 End: 04-13-2011 Lipid 1996 panel - Serum or Plasma Adebayo Hirsch MD Start: 03-29-2011 End: 04-13-2011 *Hepatic Function Panel Adebayo Hirsch MD Start: 03-29-2011 End: 04-13-2011 Lipid panel [AGGREGATE] Adebayo Hirsch MD Start: 01-16-2011 End: 01-16-2011 Follow Up Appt 6 months Adebayo Hirsch MD Start: 01-16-2011 End: 01-16-2011 Follow Up Appt 6 months Adebayo Hirsch MD 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 3 Kurtis Hastings MD Work Phone: History of coronary artery bypass grafting Hx of CABG Kurtis Hastings MD Work Phone: History of coronary artery bypass grafting S/P CABG (coronary artery bypass graft) Yoan Adam BACK PAD INSPECTOR.RETINAL ANGIOGRAPHER Work Phone: History of coronary artery bypass grafting S/P CABG (coronary artery bypass graft) [facility] History of coronary artery bypass grafting H/O coronary artery bypass surgery Kavitha Bingham BACK PAD INSPECTOR.RETINAL ANGIOGRAPHER Work Phone: History of coronary artery bypass grafting S/P CABG (coronary artery bypass graft) Guadalupe Leach BACK PAD INSPECTOR.RETINAL ANGIOGRAPHER Work Phone: History of placement of stent for coronary artery disease S/P drug eluting coronary stent placement Kavitha Bingham BACK PAD INSPECTOR.RETINAL ANGIOGRAPHER Work Phone: History of placement of stent for coronary artery disease S/P drug eluting coronary stent placement Guadalupe Leach BACK PAD INSPECTOR.RETINAL ANGIOGRAPHER Work Phone: Plan of Treatment Date Care Activity Detail Author Start: 07-17-2029 Urine microalbumin profile [facility] Start: 07-10-2029 Lipid panel Lipid Screening [facility] Start: 04-02-2029 Lipid panel Lipid Screening [facility] Start: 09-05-2028 Lipid panel Lipid Screening [facility] Start: 07-11-2027 Diabetes Screening Diabetes Screenin [facility] Start: 05-06-2027 Lipid 1996 panel - S tolu or Plasma Lipid Screening [facility] Start: 05-06-2027 Lipid panel Lipid Screening [facility] Start: 05-06-2027 LIPID SCREEN LIPID SCREEN [facility] Start: 04-15-2027 Diabetes Screening Diabetes Screenin g [facility] Start: 04-11-2027 Diabetes Screening Diabetes Screenin g [facility] Start: 04-02-2027 Diabetes Screening Diabetes Screenin g [facility] Start: 05-03-2026 LIPID SCREEN LIPID SCREEN [facility] Start: 07-10-2025 Hepatitis B surface antibody level LDL Cholesterol [facility] Start: 04-02-2025 Hepatitis B surface antibody level LDL Cholesterol [facility] Start: 09-05-2024 Hepatitis B surface antibody level LDL Cholesterol [facility] Start: 07-10-2024 End: 07-10-2024 Patient encounter procedure Cardiology Comment on above: unstable angina s/p PCI Start: 07-10-2024 End: 07-10-2024 ambulatory 07/10/2024 8:30 AM EDT Results Only [address] [address] [address] [place] [address] LAB Main [place] [facility] Comment on above: LAB Start: 05-17-2024 Covid-19 Vaccine () Covid-19 Vaccine () [facility] Start: 05-03-2024 DIABETES SCREEN DIABETES SCREEN [facility] Start: 05-03-2024 Diabetes Screening Diabetes Screenin g [facility] Start: 04-28-2024 Patient referral to dietitian [facility] Start: 04-14-2024 End: 04-14-2024 Cath placement & njx coronary art angio img s&i CATH CORONARY ARTERY ANGIOGRAPHY W/ INTRAPROCEDURAL INJECTION IMAGING SUPERVISIO/INTERPRETATIO N Unstable angina (HCC) 04/14/2024 6:10 PM EST PERSONAL SECRETARY Start: 04-14-2024 End: 04-14-2024 Evaluation and management of inpatient 04/14/2024 6:10 PM EST - 04/14/2024 7:27 PM EST Surgery HOSP Packaging Supervisor [address] [place] [address] Ron Pennington MD [address] [place], [place] [id number] CATH CORONARY ARTERY ANGIOGRAPHY W/ INTRAPROCEDURAL INJECTION IMAGING SUPERVISIO/INTERPRETATIO N HOSP Packaging Supervisor Comment on above: CATH CORONARY ARTERY ANGIOGRAPHY W/ INTRAPROCEDURAL INJECTION IMAGING SUPERVISIO/INTERPRETATION Start: 04-14-2024 End: 04-14-2024 ambulatory 04/14/2024 11:30 AM EST Procedure Cardiology [address] [place] [address] Ron Pennington MD [address] [id number] Cardiology Comment on above: [id number] Start: 04-11-2024 End: 07-11-2024 CBC panel - Blood by Automated count COMPLETE BLOOD COUNT Lab Routine S/P drug eluting coronary stent placement H/O coronary artery bypass surgery Mixed hyperlipidemia 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) Expected: 04/11/2024, Expires: 07/11/2024 [facility] Comment on above: Expected: 04/11/2024 , Expires: 07/11/2024 Start: 04-11-2024 End: 07-11-2024 Comprehensive metabolic 2000 panel - Serum or Plasma COMPREHENSIVE METABOLIC PANEL Lab Routine S/P drug eluting coronary stent placement H/O coronary artery bypass surgery Mixed hyperlipidemia 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) Expected: 04/11/2024, Expires: 07/11/2024 [facility] Comment on above: Expected: 04/11/2024 , Expires: 07/11/2024 Start: 04-11-2024 End: 07-11-2024 Lipid 1996 panel - Serum or Plasma LIPID PANEL BASIC Lab Routine S/P drug eluting coronary stent placement H/O coronary artery bypass surgery Mixed hyperlipidemia 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) Expected: 04/11/2024, Expires: 07/11/2024 [facility] Comment on above: Expected: 04/11/2024 , Expires: 07/11/2024 Start: 04-11-2024 End: 04-11-2024 Patient encounter procedure 04/11/2024 9:45 AM EST Office Visit Cardiology [address] [id number] Kurtis Hastings MD [facility] [address] [id number] New SOB over the last week Cardiology Comment on above: New SOB over the t week Start: 04-08-2024 End: 04-08-2024 Admission to same day surgery center 04/08/2024 4:25 PM EST - 04/08/2024 5:08 PM EST Surgery HOSP Packaging Supervisor [address] [place] [address] Kurtis Hastings MD [facility] [address] [place] [address] W IMAGE INJECT & INTERP W LT HEART CATH W INJECT LT VENTRGRAPHY HOSP Packaging Supervisor Comment on above: CORONARY ANGIO W CAT H PLACE W IMAGE INJECT & INTERP W LT HEART CATH W INJECT LT VENTRGRAPHY Start: 04-08-2024 End: 04-08-2024 Cath plmt l hrt & arts w/njx & angio img s&i CORONARY ANGIO W CATH PLACE W IMAGE INJECT & INTERP W LT HEART CATH W INJECT LT VENTRGRAPHY 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) 04/08/2024 4:25 PM EST PERSONAL SECRETARY Start: 04-08-2024 End: 04-08-2024 Prq trluml coronary stent w/angio one art/brnch INSERT INTRACORONARY STENT-PER MAJOR VESSEL OR BRANCH 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) 04/08/2024 4:25 PM EST PERSONAL SECRETARY Start: 04-08-2024 Subsequent hospital visit by physician 04/08/2024 4:25 PM EST Hospital Encounter HOSP Packaging Supervisor [address] [place] [address] Kurtis Hastings MD [facility] [address] [place] [address] 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) [I25.119] HOSP Packaging Supervisor Comment on above: 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 with angina pectoris (HCC) [I25.119] Start: 04-08-2024 End: 04-08-2024 Patient encounter procedure 04/08/2024 11:30 AM EST Procedure Cardiology [address] [place] [address] Kurtis Hastings MD [facility] [address] [place] [address] DX:Coronary artery disease involving rosebud coronary artery of rosebud heart with angina pectoris Cardiology Comment on above: DX:Coronary artery d isease involving rosebud coronary artery of rosebud heart with angina pectoris Start: 04-08-2024 End: 04-08-2024 Patient encounter procedure Admitting Comment on above: ADMIT DX:Coronary artery d isease involving rosebud coronary artery of rosebud heart with angina pectoris Start: 04-01-2024 End: 07-01-2024 CBC panel - Blood by Automated count COMPLETE BLOOD COUNT Lab Routine 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) Mixed hyperlipidemia S/P CABG (coronary artery bypass graft) S/P AVR (aortic valve replacement) Expected: 04/01/2024, Expires: 07/01/2024 [facility] Comment on above: Expected: 04/01/2024 , Expires: 07/01/2024 Start: 04-01-2024 End: 07-01-2024 Comprehensive metabolic 2000 panel - Serum or Plasma COMPREHENSIVE METABOLIC PANEL Lab Routine 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) Mixed hyperlipidemia S/P CABG (coronary artery bypass graft) S/P AVR (aortic valve replacement) Expected: 04/01/2024, Expires: 07/01/2024 [facility] Comment on above: Expected: 04/01/2024 , Expires: 07/01/2024 Start: 04-01-2024 End: 07-01-2024 Lipid 1996 panel - Serum or Plasma LIPID PANEL BASIC Lab Routine 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) Mixed hyperlipidemia S/P CABG (coronary artery bypass graft) S/P AVR (aortic valve replacement) Expected: 04/01/2024, Expires: 07/01/2024 [facility] Comment on above: Expected: 04/01/2024 , Expires: 07/01/2024 Start: 04-01-2024 End: 07-01-2024 Lipoprotein a [Mass/volume] in Serum or Plasma LIPOPROTEIN (A) Lab Routine 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) Mixed hyperlipidemia S/P CABG (coronary artery bypass graft) S/P AVR (aortic valve replacement) Expected: 04/01/2024, Expires: 07/01/2024 [facility] Comment on above: Expected: 04/01/2024 , Expires: 07/01/2024 Start: 02-20-2024 Advance Directive Discussion Advance Directive Discussion [facility] Start: 10-21-2023 Covid-19 Vaccine () Covid-19 Vaccine () [facility] Start: 10-21-2023 Influenza vaccination Influenza Vacc ine (#1) [facility] Start: 08-10-2023 End: 11-09-2023 Lipid 1996 panel - Serum or Plasma LIPID PANEL BASIC Lab Routine S/P AVR Hx of CABG Dyslipidemia Expected: 08/10/2023, Expires: 11/09/2023 [facility] Work Phone: Comment on above: Expected: 08/10/2023 , Expires: 11/09/2023 Start: 08-10-2023 End: 08-10-2023 Patient encounter procedure 08/10/2023 8:45 AM EDT [facility] Cardiology [address] [place] [address] [place] [address] DX: S/P AVR Cardiology Comment on above: DX: S/P AVR Start: 05-06-2023 Hepatitis B surface antibody level LDL CHOLESTEROL [facility] Start: 04-19-2023 Covid-19 Vaccine () Covid-19 Vaccine () [facility] Start: 02-19-2023 Advance Directive Discussion Advance Directive Discussion [facility] Start: 02-19-2023 Behavioral Health Screening Behavioral Health Screening [facility] Start: 01-05-2023 [facility] Start: 10-20-2022 Covid-19 Vaccine (6 - 2023-24 season) Covid-19 Vaccine ( season) [facility] Start: 10-20-2022 Influenza vaccination [facility] Start: 05-03-2022 Hepatitis B surface antibody level LDL CHOLESTEROL [facility] Start: 03-29-2022 COVID-19 VACCINE (6 - Pfizer series) COVID-19 VACCINE (6 - Pfizer series) [facility] Start: 02-19-2022 ADVANCE DIRECTIVE DISCUSSION ADVANCE DIRECTIVE DISCUSSION [facility] Start: 02-19-2022 DEPRESSION ASSESSMENT DEPRESSION ASS ESSMENT [facility] Start: 10-20-2021 Influenza vaccination C [facility] Start: 07-29-2021 COVID-19 VACCINE (5 - Booster for Pfizer series) COVID-19 VACCINE (5 - Booster for Pfizer series) [facility] Start: 02-19-2021 ADVANCE DIRECTIVE DISCUSSION ADVANCE DIRECTIVE DISCUSSION [facility] Start: 12-18-2019 Pneumococcal Vaccine : 50+ (2 of 2 - PCV) Pneumococcal Vaccine: 50+ (2 of 2 - PCV) [facility] Start: 12-18-2019 Pneumococcal Vaccine : 65+ (2 - PCV) Pneumococcal Vaccine: 65+ (2 - PCV) [facility] Start: 12-18-2019 Pneumococcal Vaccine : 65+ (2 of 2 - PCV) Pneumococcal Vaccine: 65+ (2 of 2 - PCV) [facility] Start: 12-18-2019 PNEUMOCOCCAL: 65+ (2 - PCV) PNEUMOCOCCAL: 65+ (2 - PCV) [facility] Start: 12-25-2017 End: 12-25-2017 Appointment Appointment [facility] Work Phone: Start: 12-22-2016 End: 12-22-2016 *Hepatic Function Panel *Hepatic Function Panel [facility] Work Phone: Start: 12-22-2016 End: 12-22-2016 Carotid duplex Carotid duplex [facility] Work Phone: Start: 12-22-2016 End: 12-22-2016 TAX ATTORNEY TAX ATTORNEY [facility] Work Phone: Start: 12-22-2016 End: 12-22-2016 Follow Up Appt 1 year Follow Up Appt 1 year [facility] Work Phone: Start: 12-22-2016 End: 12-22-2016 Lipid panel [AGGREGATE] *Lipid Profile CC PCP [facility] Work Phone: Start: 12-22-2016 End: 12-22-2016 Appointment Appointment [facility] Work Phone: Start: 12-22-2016 End: 12-22-2016 Appointment Appointment [facility] Work Phone: Start: 12-21-2016 Colonoscopy COLONOSCOPY [facility] Start: 12-21-2016 COLORECTAL CANCER SCREENING COLORECTAL CANCER SCREENING [facility] Start: 12-21-2016 Screening for malign ant neoplasm of colon [facility] Start: 08-19-2016 Medicare Annual Well ness Visit Medicare Annual Wellness Visit [facility] Start: 06-26-2016 End: 12-20-2016 *Hepatic Function Panel *Hepatic Function Panel [facility] Work Phone: Start: 06-26-2016 End: 12-20-2016 Lipid panel [AGGREGATE] *Lipid Profile CC PCP [facility] Work Phone: Start: 06-26-2016 End: 12-31-2015 *Hepatic Function Panel *Hepatic Function Panel [facility] Work Phone: Start: 06-26-2016 End: 12-31-2015 Lipid panel [AGGREGATE] *Lipid Profile CC PCP [facility] Work Phone: Start: 06-22-2016 End: 12-14-2016 TAX ATTORNEY TAX ATTORNEY [facility] Work Phone: Start: 06-22-2016 End: 06-22-2016 Echocardiography Echocardiogram (complete) [facility] Work Phone: Start: 06-22-2016 End: 12-14-2016 Follow Up Appt 6 months Follow Up Appt 6 months [facility] Work Phone: Start: 06-22-2016 End: 06-22-2016 *Hepatic Function Panel *Hepatic Function Panel [facility] Work Phone: Start: 06-22-2016 End: 06-22-2016 TAX ATTORNEY TAX ATTORNEY [facility] Work Phone: Start: 06-22-2016 End: 06-22-2016 Echocardiography Echocardiogram (complete) [facility] Work Phone: Start: 06-22-2016 End: 06-22-2016 Follow Up Appt 6 months Follow Up Appt 6 months [facility] Work Phone: Start: 06-22-2016 End: 06-22-2016 Lipid panel [AGGREGATE] *Lipid Profile CC PCP [facility] Work Phone: Start: 12-24-2015 End: 12-28-2015 *Hepatic Function Panel *Hepatic Function Panel [facility] Work Phone: Start: 12-24-2015 End: 12-24-2015 TAX ATTORNEY TAX ATTORNEY [facility] Work Phone: Start: 12-24-2015 End: 12-24-2015 Follow Up Appt 6 months Follow Up Appt 6 months [facility] Work Phone: Start: 12-24-2015 End: 12-28-2015 Lipid panel [AGGREGATE] *Lipid Profile CC PCP [facility] Work Phone: Start: 12-24-2015 End: 12-28-2015 *Hepatic Function Panel *Hepatic Function Panel [facility] Work Phone: Start: 12-24-2015 End: 12-24-2015 TAX ATTORNEY TAX ATTORNEY [facility] Work Phone: Start: 12-24-2015 End: 12-24-2015 Follow Up Appt 6 months Follow Up Appt 6 months [facility] Work Phone: Start: 12-24-2015 End: 12-28-2015 Lipid panel [AGGREGATE] *Lipid Profile CC PCP [facility] Work Phone: Start: 12-20-2015 End: 12-28-2015 *Hepatic Function Panel *Hepatic Function Panel [facility] Work Phone: Start: 12-20-2015 End: 12-28-2015 Lipid panel [AGGREGATE] *Lipid Profile CC PCP [facility] Work Phone: Start: 12-20-2015 End: 12-28-2015 *Hepatic Function Panel *Hepatic Function Panel [facility] Work Phone: Start: 12-20-2015 End: 12-28-2015 Lipid panel [AGGREGATE] *Lipid Profile CC PCP [facility] Work Phone: Start: 06-08-2015 End: 06-21-2015 *Hepatic Function Panel *Hepatic Function Panel [facility] Work Phone: Start: 06-08-2015 End: 06-08-2015 Follow Up Appt 6 months Follow Up Appt 6 months [facility] Work Phone: Start: 06-08-2015 End: 06-21-2015 Lipid panel [AGGREGATE] *Lipid Profile CC PCP [facility] Work Phone: Start: 06-08-2015 End: 06-08-2015 MMM MMM [facility] Work Phone: Start: 06-08-2015 End: 06-21-2015 *Hepatic Function Panel *Hepatic Function Panel [facility] Work Phone: Start: 06-08-2015 End: 06-08-2015 Follow Up Appt 6 months Follow Up Appt 6 months [facility] Work Phone: Start: 06-08-2015 End: 06-21-2015 Lipid panel [AGGREGATE] *Lipid Profile CC PCP [facility] Work Phone: Start: 06-08-2015 End: 06-08-2015 MMM MMM [facility] Work Phone: Start: 04-20-2015 End: 01-04-2015 *Hepatic Function Panel *Hepatic Function Panel [facility] Work Phone: Start: 04-20-2015 End: 01-04-2015 Lipid panel [AGGREGATE] *Lipid Profile CC PCP [facility] Work Phone: Start: 04-20-2015 End: 01-04-2015 *Hepatic Function Panel *Hepatic Function Panel [facility] Work Phone: Start: 04-20-2015 End: 01-04-2015 Lipid panel [AGGREGATE] *Lipid Profile CC PCP [facility] Work Phone: Start: 03-16-2015 End: 03-16-2015 Radex shoulder complete minimum 2 views X-Ray, Shoulder [facility] Work Phone: Start: 03-16-2015 End: 03-16-2015 Radex spine cervical 2 or 3 views X-Ray, Spine, Cervical [facility] Work Phone: Start: 03-16-2015 End: 03-16-2015 X-ray exam of neck spine X-Ray, Spine, Cervical [facility] Work Phone: Start: 03-16-2015 End: 03-16-2015 X-ray exam of shoulder X-Ray, Shoulder [facility] Work Phone: Start: 12-21-2014 End: 12-24-2014 *BMP *BMP [facility] Work Phone: Start: 12-21-2014 End: 12-24-2014 *CBC with Differential *CBC with Differential [facility] Work Phone: Start: 12-21-2014 End: 12-24-2014 BNP *Brain Natriuretic Peptide BNP [facility] Work Phone: Start: 12-21-2014 End: 12-24-2014 *BMP *BMP [facility] Work Phone: Start: 12-21-2014 End: 12-24-2014 *CBC with Differential *CBC with Differential [facility] Work Phone: Start: 12-21-2014 End: 12-24-2014 BNP *Brain Natriuretic Peptide BNP [facility] Work Phone: Start: 12-09-2014 End: 12-24-2014 *Hepatic Function Panel *Hepatic Function Panel [facility] Work Phone: Start: 12-09-2014 End: 12-09-2014 TAX ATTORNEY TAX ATTORNEY [facility] Work Phone: Start: 12-09-2014 End: 12-10-2014 Echocardiography Echocardiogram (complete) [facility] Work Phone: Start: 12-09-2014 End: 12-09-2014 Follow Up Appt 6 months Follow Up Appt 6 months [facility] Work Phone: Start: 12-09-2014 End: 12-24-2014 Lipid panel [AGGREGATE] *Lipid Profile CC PCP [facility] Work Phone: Start: 12-09-2014 End: 12-09-2014 Nuclear stress test -exercise Nuclear stress test -exercise [facility] Work Phone: Start: 12-09-2014 End: 12-24-2014 *Hepatic Function Panel *Hepatic Function Panel [facility] Work Phone: Start: 12-09-2014 End: 12-09-2014 TAX ATTORNEY TAX ATTORNEY [facility] Work Phone: Start: 12-09-2014 End: 12-10-2014 Echocardiography Echocardiogram (complete) [facility] Work Phone: Start: 12-09-2014 End: 12-09-2014 Follow Up Appt 6 months Follow Up Appt 6 months [facility] Work Phone: Start: 12-09-2014 End: 12-24-2014 Lipid panel [AGGREGATE] *Lipid Profile CC PCP [facility] Work Phone: Start: 12-09-2014 End: 12-09-2014 Nuclear stress test -exercise Nuclear stress test -exercise [facility] Work Phone: Start: 12-02-2014 End: 12-09-2014 *Hepatic Function Panel *Hepatic Function Panel [facility] Work Phone: Start: 12-02-2014 End: 12-09-2014 Lipid panel [AGGREGATE] *Lipid Profile CC PCP [facility] Work Phone: Start: 12-02-2014 End: 12-09-2014 *Hepatic Function Panel *Hepatic Function Panel [facility] Work Phone: Start: 12-02-2014 End: 12-09-2014 Lipid panel [AGGREGATE] *Lipid Profile CC PCP [facility] Work Phone: Start: 06-18-2014 End: 06-02-2014 *Hepatic Function Panel *Hepatic Function Panel [facility] Work Phone: Start: 06-18-2014 End: 06-02-2014 Lipid panel [AGGREGATE] *Lipid Profile CC PCP [facility] Work Phone: Start: 06-18-2014 End: 06-02-2014 *Hepatic Function Panel *Hepatic Function Panel [facility] Work Phone: Start: 06-18-2014 End: 06-02-2014 Lipid panel [AGGREGATE] *Lipid Profile CC PCP [facility] Work Phone: Start: 06-02-2014 End: 06-02-2014 Follow Up Appt 6 months Follow Up Appt 6 months [facility] Work Phone: Start: 06-02-2014 End: 06-02-2014 MMM MMM [facility] Work Phone: Start: 06-02-2014 End: 06-02-2014 Follow Up Appt 6 months Follow Up Appt 6 months [facility] Work Phone: Start: 06-02-2014 End: 06-02-2014 MMM MMM [facility] Work Phone: Start: 11-24-2013 End: 12-09-2014 TAX ATTORNEY TAX ATTORNEY [facility] Work Phone: Start: 11-24-2013 End: 12-09-2014 Follow Up Appt 6 months Follow Up Appt 6 months [facility] Work Phone: Start: 11-24-2013 End: 12-09-2014 TAX ATTORNEY TAX ATTORNEY [facility] Work Phone: Start: 11-24-2013 End: 12-09-2014 Follow Up Appt 6 months Follow Up Appt 6 months [facility] Work Phone: Start: 10-20-2013 End: 11-21-2013 *Hepatic Function Panel *Hepatic Function Panel [facility] Work Phone: Start: 10-20-2013 End: 11-21-2013 Lipid panel [AGGREGATE] *Lipid Profile CC PCP [facility] Work Phone: Start: 10-20-2013 End: 11-21-2013 *Hepatic Function Panel *Hepatic Function Panel [facility] Work Phone: Start: 10-20-2013 End: 11-21-2013 Lipid panel [AGGREGATE] *Lipid Profile CC PCP [facility] Work Phone: Start: 05-27-2013 End: 05-27-2013 Follow Up Appt 6 months Follow Up Appt 6 months [facility] Work Phone: Start: 05-27-2013 End: 05-27-2013 MMM MMM [facility] Work Phone: Start: 05-27-2013 End: 05-27-2013 Follow Up Appt 6 months Follow Up Appt 6 months [facility] Work Phone: Start: 05-27-2013 End: 05-27-2013 MMM MMM [facility] Work Phone: Start: 04-19-2013 End: 04-28-2013 *Hepatic Function Panel *Hepatic Function Panel [facility] Work Phone: Start: 04-19-2013 End: 04-28-2013 Lipid panel [AGGREGATE] *Lipid Profile CC PCP [facility] Work Phone: Start: 04-19-2013 End: 04-28-2013 *Hepatic Function Panel *Hepatic Function Panel [facility] Work Phone: Start: 04-19-2013 End: 04-28-2013 Lipid panel [AGGREGATE] *Lipid Profile CC PCP [facility] Work Phone: Start: 11-19-2012 End: 11-19-2012 TAX ATTORNEY TAX ATTORNEY [facility] Work Phone: Start: 11-19-2012 End: 11-19-2012 Follow Up Appt 6 months Follow Up Appt 6 months [facility] Work Phone: Start: 11-19-2012 End: 11-19-2012 TAX ATTORNEY TAX ATTORNEY [facility] Work Phone: Start: 11-19-2012 End: 11-19-2012 Follow Up Appt 6 months Follow Up Appt 6 months [facility] Work Phone: Start: 11-04-2012 End: 11-14-2012 *Hepatic Function Panel *Hepatic Function Panel [facility] Work Phone: Start: 11-04-2012 End: 11-14-2012 Lipid panel [AGGREGATE] *Lipid Profile CC PCP [facility] Work Phone: Start: 11-04-2012 End: 11-14-2012 *Hepatic Function Panel *Hepatic Function Panel [facility] Work Phone: Start: 11-04-2012 End: 11-14-2012 Lipid panel [AGGREGATE] *Lipid Profile CC PCP [facility] Work Phone: Start: 05-06-2012 End: 11-14-2012 *BMP *BMP [facility] Work Phone: Start: 05-06-2012 End: 05-06-2012 Follow Up Appt 6 months Follow Up Appt 6 months [facility] Work Phone: Start: 05-06-2012 End: 11-14-2012 Magnesium *Magnesium [facility] Work Phone: Start: 05-06-2012 End: 11-14-2012 *BMP *BMP [facility] Work Phone: Start: 05-06-2012 End: 05-06-2012 Follow Up Appt 6 months Follow Up Appt 6 months [facility] Work Phone: Start: 05-06-2012 End: 11-14-2012 Magnesium *Magnesium [facility] Work Phone: Start: 04-03-2012 End: 04-17-2012 *Hepatic Function Panel *Hepatic Function Panel [facility] Work Phone: Start: 04-03-2012 End: 04-17-2012 Lipid panel [AGGREGATE] *Lipid Profile [facility] Work Phone: Start: 04-03-2012 End: 04-17-2012 *Hepatic Function Panel *Hepatic Function Panel [facility] Work Phone: Start: 04-03-2012 End: 04-17-2012 Lipid panel [AGGREGATE] *Lipid Profile [facility] Work Phone: Start: 01-18-2012 End: 01-18-2012 Ecg routine ecg w/least 12 lds w/i&r EKG (In office) [facility] Work Phone: Start: 01-18-2012 End: 01-18-2012 Echocardiography Echocardiogram (complete) [facility] Work Phone: Start: 01-18-2012 End: 01-18-2012 Follow Up Appt 4 months Follow Up Appt 4 months [facility] Work Phone: Start: 01-18-2012 End: 01-18-2012 Echocardiography Echocardiogram (complete) [facility] Work Phone: Start: 01-18-2012 End: 01-18-2012 Electrocardiogram, complete EKG (In office) [facility] Work Phone: Start: 01-18-2012 End: 01-18-2012 Follow Up Appt 4 months Follow Up Appt 4 months [facility] Work Phone: Start: 09-20-2011 End: 10-24-2011 *Hepatic Function Panel *Hepatic Function Panel [facility] Work Phone: Start: 09-20-2011 End: 10-24-2011 Lipid panel [AGGREGATE] *Lipid Profile [facility] Work Phone: Start: 09-20-2011 End: 10-24-2011 *Hepatic Function Panel *Hepatic Function Panel [facility] Work Phone: Start: 09-20-2011 End: 10-24-2011 Lipid panel [AGGREGATE] *Lipid Profile [facility] Work Phone: Start: 2011 RSV Vaccine (1 - 1-d ose 60+ series) RSV Vaccine (1 - 1-dose 60+ series) [facility] Start: 07-20-2011 End: 07-24-2011 Follow Up Appt 6 months Follow Up Appt 6 months [facility] Work Phone: Start: 07-20-2011 End: 07-24-2011 Follow Up Appt 6 months Follow Up Appt 6 months [facility] Work Phone: Start: 03-29-2011 End: 04-13-2011 *Hepatic Function Panel *Hepatic Function Panel [facility] Work Phone: Start: 03-29-2011 End: 04-13-2011 Lipid panel [AGGREGATE] *Lipid Profile [facility] Work Phone: Start: 03-29-2011 End: 04-13-2011 *Hepatic Function Panel *Hepatic Function Panel [facility] Work Phone: Start: 03-29-2011 End: 04-13-2011 Lipid panel [AGGREGATE] *Lipid Profile [facility] Work Phone: Start: 01-16-2011 End: 01-16-2011 Follow Up Appt 6 months Follow Up Appt 6 months [facility] Work Phone: Start: 01-16-2011 End: 01-16-2011 Follow Up Appt 6 months Follow Up Appt 6 months [facility] Work Phone: Start: 09-18-2001 SHINGRIX VACCINE (1 of 2) MIKE GRIX VACCINE (1 of 2) [facility] Start: 09-18-1996 COLOGUARD (FIT-DNA) COLOGUARD (FIT-D NA) [facility] Start: 09-18-[address] COLONOGRAPHY [facility] Start: 09-18-1996 FECAL OCCULT BLOOD FECAL OCCULT BLOO D [facility] Start: 09-18-1996 Screening for malign ant neoplasm of colon [facility] Start: 09-18-1996 SIGMOIDOSCOPY SIGMOIDOSCOPY Jamal reeves [facility] Start: 09-18-1969 ANNUAL PCP TEAM ANIMAL IMPERSONATOR SERA DISEASE VISIT ANNUAL PCP TEAM CHRONIC DISEASE VISIT [facility] Start: 09-18-1969 Anxiety Screening Anxiety Screening [facility] Start: 09-18-1969 Depression Screening Depression Scre ening [facility] Start: 09-18-1969 HEPATITIS C SCREENING HEPATITIS C [facility] Start: 09-18-1969 Hepatitis C screening Hepatitis C [facility] Start: 1962 Adult depression screening assessment DEPRESSION SCREENING [facility] Colonoscopy [facility] End: 04-01-2025 ECG COMPLETE ECG COMPLETE ECG Routine 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) Mixed hyperlipidemia S/P CABG (coronary artery bypass graft) S/P AVR (aortic valve replacement) 1 Occurrences starting 04/01/2024 until 04/01/2025 [facility] Work Phone: Comment on above: 1 Occurrences starti ng 04/01/2024 until 04/01/2025 End: 04-11-2025 ECG COMPLETE ECG COMPLETE ECG Routine S/P drug eluting coronary stent placement H/O coronary artery bypass surgery Mixed hyperlipidemia 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) 1 Occurrences starting 04/11/2024 until 04/11/2025 [facility] Work Phone: Comment on above: 1 Occurrences starti ng 04/11/2024 until 04/11/2025 End: 04-01-2025 Echocardiography ECHO Cardiology Routine 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) Mixed hyperlipidemia S/P CABG (coronary artery bypass graft) S/P AVR (aortic valve replacement) 1 Occurrences starting 04/01/2024 until 04/01/2025 [facility] Comment on above: 1 Occurrences starti ng 04/01/2024 until 04/01/2025 Patient Education [facility] Work Phone: Patient referral [facility] Work Phone: [facility] Immunizations Immunization Date Immunization Notes Care Provider Guero zhao 11-03-2022 influenza virus vacc ine, unspecified formulation Kurtis Hastings MD Work Phone: [facility] 12-15-2021 influenza virus vacc ine, unspecified formulation Kurtis Hastings MD Work Phone: [facility] 04-22-2020 COVID-19 vaccine, ag e 12+ yr (PFIZER-BIONTECH - PURPLE [facility]) Kurtis Hastings MD Work Phone: [facility] 04-01-2020 COVID-19 vaccine, ag e 12+ yr (PFIZER-BIONTECH - PURPLE TOP) Kurtis Hastings MD Work Phone: [facility] 11-20-2019 Influenza virus vaccine [facility] 11-20-2019 influenza, seasonal, injectable, preservative free Kurtis Hastings MD Work Phone: [facility] 11-04-2019 influenza, injectabl e, quadrivalent, preservative free Kurtis Hastings MD Work Phone: [facility] 07-18-2019 tetanus toxoid, redu sharon diphtheria toxoid, and acellular pertussis vaccine, adsorbed Kurtis Hastings MD Work Phone: [facility] 12-17-2018 pneumococcal polysaccharide vaccine, 23 valent Kurtis Hastings MD Work Phone: [facility] 12-03-2018 Influenza virus vaccine [facility] 12-03-2018 influenza, seasonal, injectable, preservative free Kurtis Hastings MD Work Phone: [facility] 11-25-2018 influenza, seasonal, injectable Kurtis Hastings MD Work Phone: [facility] 12-18-2017 influenza, injectabl e, quadrivalent, contains preservative Kurtis Hastings MD Work Phone: [facility] 12-14-2016 influenza, seasonal, injectable Kurtis Hastings MD Work Phone: [facility] 11-18-2015 influenza, injectabl e, quadrivalent, contains preservative Kurtis Hastings MD Work Phone: [facility] 01-01-2014 influenza, seasonal, injectable Kurtis Hastings MD Work Phone: [facility] 12-11-2012 influenza, seasonal, injectable Kurtis Hastings MD Work Phone: [facility] 11-29-2012 Influenza virus vaccine [facility] 11-29-2012 influenza, seasonal, injectable, preservative free Kurtis Hastings MD Work Phone: [facility] 11-27-2011 influenza virus vacc ine, unspecified formulation Kurtis Hastings MD Work Phone: [facility] 11-28-2010 pneumococcal polysaccharide vaccine, 23 valent Kurtis Hastings MD Work Phone: [facility] 11-28-2010 Pneumococcal Vaccine [facility] Work Phone: 11-28-2010 pneumococcal vaccine , unspecified formulation [facility] Payers Date Payer Category Payer Self-pay [id number] 2017 Private Health Insurance [facility] AARP SUPPLEMENT [id number] 2017-Present [phone] [address] [place] [address] Indemnity [id number] 2017 Private Health Insurance [id number] 2017 Unknown [id number] 2016 Medicare MEDICARE MEDICAR E A AND B [id number] 2016-Present [phone] [address] [address] [place] [address] Medicare [id number] 2016 Medicare [id number] 2016 Medicare [id number] Unknown [id number] Unknown [id number] Unknown [id number] Unknown [id number] Unknown [id number] Unknown [id number] Unknown [id number] Unknown [id number] Unknown [id number] Unknown [id number] Unknown [id number] Unknown [id number] Social History Date Type Detail Facility Start: 04-12-2021 End: 01-03-2023 Tobacco smoking status [facility] Unknown if ever smoked [facility] Start: 1950 Sex Assigned At Male [facility] Start: 02-14-2018 End: 03-16-2023 Tobacco smoking status [facility] Never smoked tobacco [facility] Start: 07-16-2021 End: 07-10-2024 Alcohol intake Current drinker of alcohol (finding) [facility] Start: 02-14-2018 History SDOH Alcohol Comment occ [facility] Start: 07-06-2021 End: 07-16-2021 Exposure to SARS-CoV-2 (event) Yes [facility] Work Phone: Start: 02-14-2018 End: 03-16-2023 Tobacco use and exposure Smokeless tobacco non-user [facility] Start: 07-16-2021 End: 08-10-2023 History of Social function [facility] Start: 07-16-2021 End: 08-10-2023 Tobacco use panel [facility] PHQ2 Score 0 [facility] Start: 07-14-2020 Gender identity Identifies as male gender (finding) [facility] Start: 07-14-2020 Sexual orientation Heterosexual (meliton angelo) [facility] Start: 09-25-2013 Rare [facility] Start: 09-25-2013 None [facility] Start: 09-25-2013 Spouse/ Signif icant Other [facility] Start: 09-25-2013 Non-smoker [facility] Has the electric, Pennant, oil, or water company threatened to shut off services in your home in past 12Mo No [facility] Work Phone: (I/We) worried whemerlin er (my/our) food would run out before (I/we) got money to buy more. Never true [facility] Start: 05-07-2024 End: 06-03-2024 Sex Male (finding) [facility] Medical Equipment Procedure Code Equipment Code Equipment Original Text Equipment Identifier Dates Graft Vascutek 8 mm Straight Gelweave 15cm Cardiovascular Woven Thorax - [id number] Start: 01-26-2021 Device Angio-Sea l Vip Bondek-Plus 8fr .038in Polyglyd 70cm Closure - [id number] Start: 04-23-2018 Bahama Thk1.65mm P tfe 4x.5in Cardiovascular Sterile - [id number] Start: 01-26-2021 Patch Thk.5mm Ambrocio vine Pericardial 04l37ce Cardiovascular Resilience Durable - [id number] Start: 01-26-2021 Valve Baylee 23m m Aortic Transcatheter Retroflex 3 Transfemoral Heart - [id number] Start: 04-23-2018 Valve Heart Aort ic Resilia Conduit Konect 25mm - [id number] Start: 01-26-2021 Goals Date Patient Goal Desired Activity /State Personal health goal Functional Status Date Assessment Result Facility 04-15-2024 Are you deaf, or do you have serious difficulty hearing No 04/15/2024 12:19 PM Toña Cloud, MARCY No [facility] 04-15-2024 Are you blind, or do you have serious difficulty seeing, even when wearing glasses No 04/15/2024 12:19 PM Toña Cloud, MARCY No [facility] 04-15-2024 Do you have serious difficulty walking or climbing stairs No 04/15/2024 12:19 PM Toña Cloud, MARCY No [facility] 04-15-2024 Do you have difficul ty dressing or bathing No 04/15/2024 12:19 PM Toña Cloud, MARCY No [facility] 04-15-2024 Because of a physica l, mental, or emotional condition, do you have difficulty doing errands alone such as visiting a physician's office or shopping No 04/15/2024 12:19 PM Toña Cloud, MARCY No [facility] 02-02-2021 Are you deaf, or do you have serious difficulty hearing No 02/02/2021 3:43 PM Parish Parra RN No [facility] 02-02-2021 Are you blind, or do you have serious difficulty seeing, even when wearing glasses No 02/02/2021 3:43 PM Parish Parra RN No [facility] 02-02-2021 Do you have serious difficulty walking or climbing stairs Yes 02/02/2021 3:43 PM Parish Parra RN Yes [facility] 02-02-2021 Do you have difficul ty dressing or bathing No 02/02/2021 3:43 PM Parish Parra RN No [facility] 02-02-2021 Because of a physica l, mental, or emotional condition, do you have difficulty doing errands alone such as visiting a physician's office or shopping Yes 02/02/2021 3:43 PM Parish Parra, MARCY Yes [facility] Mental Status Date Assessment Result Facility 04-15-2024 Because of a physica l, mental, or emotional condition, do you have serious difficulty concentrating, remembering, or making decisions No 04/15/2024 12:19 PM Toña Cloud, RN No [facility] 01-05-2023 Cognitive function Voice/Name [facility] Work Phone: 02-02-2021 Because of a physica l, mental, or emotional condition, do you have serious difficulty concentrating, remembering, or making decisions No 02/02/2021 3:43 PM Parish Parra, MARCY No [facility] Clinical Notes 01-26-2021 to 08-08-2024 Telephone Encounter - Awa Cain - 08/08/2024 9:58 AM EDTTelephone Encounter - Awa Cain - 08/08/2024 9:58 AM EDT Note Date & Type Note Facility 08-08-2024 Telephone encount er Note Call from patient requesting refill. Requested Prescriptions Pending Prescriptions Disp Refills amLODIPine (NORVASC) 2.5 mg tablet 90 tablet 3 Sig: Take 1 tablet by mouth once daily. Patient last seen 07/10/24 Awa Cain [facility] 08-08-2024 Miscellaneous Notes Formattin g of this note is different from the original. Call from patient requesting refill. Requested Prescriptions Pending Prescriptions Disp Refills amLODIPine (NORVASC) 2.5 mg tablet 90 tablet 3 Sig: Take 1 tablet by mouth once daily. Patient last seen 07/10/24 Awa Cain documented in this encounter [facility] 07-10-2024 Note HNO ID: [id number] Author: KURTIS HASTINGS MD Service: ? Author Type: Physician Type: Progress Notes Filed: 07/10/2024 09:32 Note Text: [facility] [place] [facility] Department of Cardiovascular Medicine SECTION OF INTERVENTIONAL CARDIOLOGY OUTPATIENT VISIT DATE July 10, 2024 OUTPATIENT VISIT TYPE ESTABLISHED PRIMARY CARE PHYSICIAN: [address] [place] [address] REFERRING PHYSICIAN: No referring provider defined for this encounter. CHIEF COMPLAINT: 01/26/2021; 3rd redo sternotomy, homograft removal, AVR/Root replacement (Konect 25), CABGx3 (Lt. 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 Wilcox is feeling very well following PCI. He is doing cardiac rehab and getting his heart rate up to around 90 to 94% MPR. ECG today shows sinus rhythm. Lab test showed LDL of 30, HDL 43 and triglycerides 110. His echocardiogram during his admission showed an LVEF of 68%, the aortic bioprosthetic valve is well-seated, no PVL, mean transaortic gradient of 6 mmHg with a DI of 0.65. PAST CARDIAC HISTORY: See HPI PAST MEDICAL HISTORY Diagnosis Date Aortic valve disorders Aortic valve disorders CAD (coronary artery disease) Hx of CABG Hyperlipidemia Presence of stent in coronary artery TIA (transient ischemic attack) Urinary retention PAST SURGICAL HISTORY Procedure Laterality Date COLSC FLX W/RMVL OF TUMOR POLYP LESION SNARE TQ 09/01/05 CORONARY ARTERY BYP W/VEIN AND ARTERY GRAFT 3 VEIN 2010 CABG, three grafts HEMORRHOIDECTOMY PAST SURGICAL HISTORY OF 1967 excision of chest lump PAST SURGICAL HISTORY OF 12/03/1995 Minimally invasive incision; aortic valve replacement with a PAST SURGICAL HISTORY OF 04/23/2018 TAVR SOCIAL HISTORY Social History Tobacco Use Smoking status: Never Smokeless tobacco: Never Substance Use Topics Alcohol use: Yes Comment: occ Drug use: No FAMILY HISTORY Problem Relation Age of Onset Cancer Father Colon Cancer Father from cancer other (Myocardial infarction) Mother 70 other (Myocardial infarction) Sister 70 CABG other (Myocardial infarction) Brother 62 CABG age 55, coronary stents other (Myocardial infarction) Maternal Grandmother 92 other (Brain aneurysm) Paternal Grandmother 70 other (CABG) Brother other (coronary stents) Brother other (coronary stents) Brother carotid artery disease ALLERGIES: ALLERGIES Allergen Reactions Ragweed Pollen Itching, Other: See Comments MEDICATIONS: Current Outpatient Medications Medication Sig evolocumab 140 mg/mL subcutaneous pen injector (Performance Indicator) Inject 140 mg subcutaneously every 2 weeks. acetaminophen (TYLENOL) 325 mg tablet Take 2 tablets by mouth every 4 hours as needed for pain. aspirin 81 mg chewable tablet Take 1 tablet by mouth once daily. isosorbide mononitrate ER (IMDUR) 60 mg 24 hr tablet Take 1 tablet by mouth once daily. Patient should start on April 16, 2024. nitroglycerin sublingual (NITROQUICK) 0.4 mg SL tablet Dissolve 1 tablet under the tongue every 5 minutes as needed. clopidogrel (PLAVIX) 75 mg tablet Take 1 tablet by mouth once daily. atorvastatin (LIPITOR) 80 mg tablet Take 1 tablet by mouth daily at bedtime. amLODIPine (NORVASC) 2.5 mg tablet Take 1 tablet by mouth once daily. Ipratropium [place] (ATROVENT) 21 mcg (0.03 %) nasal spray Amoxicillin 500 mg tablet Take 4 tablets by mouth as needed. Prior to dental procedures cetirizine (ZYRTEC) 10 mg tablet Take 10 mg by mouth as needed. albuterol HFA (VENTOLIN HFA) 90 mcg/actuation inhaler Inhale 2 Puffs as instructed every 4 hours as needed for Wheezing/Shortness of Breath. Multivitamin capsule Take 1 capsule by mouth once daily. No current facility-administered medications for this visit. REVIEW OF SYSTEMS: GENERAL: negative for: fevers, chills, and change in weight HEENT: negative for: headaches, hearing loss, difficulty swallowing, visual changes, nose bleeds, dentures, own teeth SKIN: rashes, lesions, and ulcers RESPIRATORY: SEE HPI CARDIOVASCULAR: See HPI GASTROINTESTINAL: negative for: abdominal pain, nausea, vomiting, difficulty or painful swallowing, and melanotic stools GENITOURINARY: negative for: dysuria, frequency, nocturia, and male potency MUSCULOSKELETAL: negative for: joint pain, joint swelling, muscle pain or myalgias, and pain with walking NEUROLOGIC: negative for: numbness, tingling, and sensation of pins and needles HEMATOLOGY: negative for: bruising easily, prolonged bleeding, anemia, and cancer ENDOCRINE: negative for: cold or heat intolerance, polyuria, polydipsia, goiter, diabetes, and thyroid disease PSYCH: negative for: sleep disturbance, mood disorders, and recent psychosoc (more content not included)... [facility] 06-03-2024 Discharge summary [facility] 06-03-2024 Discharge summary Note Date/Time June 03, 2024 8:47am [facility] Physical Therapy [facility] [address] [place] [address] / REHABILITATION SERVICES DISCHARGE SUMMARY MR#: [id number] Acct: [id number] Name: CHLOE WILCOX Rep #: [id number] : 1950 73 From: Jeremy Martinez Referring Dr.: Tino Ac MD Status: REG RCR Insurance: MEDICARE PART A B AAR Discharge Summary D/C summary: It has been my pleasure to treat CHLOE WILCOX referred by Dr. Tino Ac MD, with the diagnosis of L RTC tear for a total of 19 visit(s). Discharge Date: 06/03/24 Please see the following information for a summary of their discharge status. Subjective Subjective: Pt. reports overall doing well. Pt. reports having some soreness with baseball activities, but overall doing well. He reports having good HEP andgood compliance. Pt. reports being 80% better overall. Pain L shoulder: Pain Intensity (Out of 10): 0 Overall Improvement % Improvement: 75 Objective Objective/Function: Pt. has close to full ROM of his L shoulder. Pt. did have some soreness with OP at end ranges. MMT: L shoulder: flexion 21#, abd 20#, ER 17, IR 28 R shoulder: flexion 24#, abd 23#, ER 21, IR 27 Pt. is overall doing well. He does have some soreness Pt. given ER/IR and mid rows for HEP. Goals Goal 1:: LTG: Pt. to be I with HEP. Goal Progress: Goal Met Goal 2:: STG: pt. to sleep throughout the night without increase in symptoms. Goal Progress: Goal Met Goal 3:: LTG: Pt. to have symmetrical strength between BUEs. Goal Progress: Goal Met Goal 4:: LTG: Pt. to have full pain free L shoulder ROM. Goal Progress: Goal Met Goal 5:: LTG: Pt. to complete all ADls without increase in L shoulder pain. Goal Progress: Goal Met Plan Plan: Pt. to be DC from PT at this point in time. D/C Information d/c sentence: If there are questions or concerns regarding this patient's physical therapy, please feel free to call me at [phone]. Thank you for the referral of thispatient. Sincerely, Jeremy Medley, DPT Balance/Gait/Functional tests Balance/Special Test Scores Quick DASH Score: 0 Improvement % Improvement: 75 <Electronically signed by Jeremy Meldey DPT> 06/03/24 0847 CC: Dr. Gatito Leon MD; Tino Ac MD ~ CLS Signed [facility] Work Phone: [phone] 370-361203-05-2025 Telephone encounter Note* Telephone Encounter - Erick Jones - 04/23/2024 11:57 AM EST Fax number is [phone] Office faxed cardiac rehab orders, cath report and office visit notes. [facility]03-05-2025 Miscellaneous Notes* Telephone Encounter - Erick Jones - 04/23/2024 11:57 AM EST Fax number is [phone] Office faxed cardiac rehab orders, cath report and office visit notes. * Telephone Encounter - Trice Craft - 04/23/2024 11:32 AM EST April 23, 2024 [id number] Patient Name: Chloe Wilcox Contact Information: [phone] (home) [phone] (work) [phone] (cell) Reason For Call:Other Issue: Physician:Dr Hastings Pt called @ 11:30 asking that cardiac rehab orders be sent to [facility]. ; . pt also states his pharmacy told him they needs a new Rx for Repatha. Preferred pharmacy is [facility] in [place]. [facility] Telephone encounter Note * Telephone Encounter - Erick Jones - 04/23/2024 11:38 AM EST Call from patient requesting refill. Requested Prescriptions Pending Prescriptions Disp Refills evolocumab 140 mg/mL subcutaneous pen injector (REPATHA SURECLICK) 2 mL 3 Sig: Inject 140 mg subcutaneously every 2 weeks. Patient last seen 04/23/24 Erick Jones [facility]03-05-2025 Miscellaneous Notes* Telephone Encounter - RobertErick - 04/23/2024 11:38 AM EST Call from patient requesting refill. Requested Prescriptions Pending Prescriptions Disp Refills evolocumab 140 mg/mL subcutaneous pen injector (REPATHA SURECLICK) 2 mL 3 Sig: Inject 140 mg subcutaneously every 2 weeks. Patient last seen 04/23/24 Erick Jones [facility] Telephone encounter Note * Telephone Encounter - Trice Craft - 04/23/2024 11:32 AM EST April 23, 2024 [id number] Patient Name: Chloe Wilcox Contact Information: [phone] (home) [phone] (work) [phone] (cell) Reason For Call:Other Issue: Physician:Dr Hastings Pt called @ 11:30 asking that cardiac rehab orders be sent to [facility]. ; . pt also states his pharmacy told him they needs a new Rx for Repatha. Preferred pharmacy is [facility] in [place]. [facility]03-05-2025 Instructions* Patient Instructions* Guadalupe Leach APRN.CNP - 04/23/2024 8:40 AM EST Follow up/Disposition: Cardiac rehab ordered and discussed- to be completed locally You should enroll in Phase II cardiac rehab. Cardiac Rehab is a supervised program designed for patients who have certain heart procedures. You will receive a referral prior to discharge so that you can start the outpatient cardiac rehab program 2-3 weeks after you leave the hospital. Cardiac rehabwill help you get stronger so you can return to your routine activities, teach you about lifestyle changes, and nutrition by education and exercise. Completing your cardiac rehab program can greatly help your recovery and greatly reduce your risk of future heart problems. For [facility] call [phone] to schedule after you are home from your procedure. If you wish to complete locally and at a facility outside of the [facility] network, you will need to obtain a referral from your PCP or primary local professional healthcare representative. Follow-up with Cardiology with Dr Hastings as scheduled June 2024- or sooner if needed. Check blood pressure daily and record the results. Please bring the results to your next appointment for review. Contact the office if you have blood pressure readings consistently greater than 140/85. If you have worsening chest pain, shortness of breath or syncope, please report to the Emergency room or call 911. Dr Hastings O: [phone] F: [phone] It was my pleasure to participate in the management of your care! Guadalupe Leach, MSN, BACK PAD INSPECTOR-RETINAL ANGIOGRAPHER, PCCN [facility] History of Present illness Narrative* Guadalupe Leach APRN.CNP - 04/23/2024 8:15 AM EST Images from the original note were not included. [facility] V[facility] [place] [facility] Department of Cardiovascular Medicine SECTION OF INTERVENTIONAL CARDIOLOGY OUTPATIENT VISIT DATE April 23, 2024 OUTPATIENT VISIT TYPE ESTABLISHED FOLLOW UP Primary Dialysis Chief Equipment Technician: Kurtis Hastings MD Chief Complaint: Patient here for cardiac follow up evaluation History of Present Illness: Patient is a 73 year old male who presents for follow up visit today. Past medical history includes: CAD 2010 redo CABG (SV-LAD/OM, SV-PDA), 2019- s/p PCI to LM-Cx 01/26/2021; 3rd redo sternotomy, homograft removal, AVR/Root replacement (Konect 25), CABGx3 (Lt. Radial - PDA, SV-OM1, SV-OM2) 04/14/24 LHC > Scoring balloon angioplasty LAD, PTCA of the proximal LCx ISR, IC lithotripsy proximal-mid LAD, IC lithotripsy proximal LCx, PCI of the LMT into proximal LAD, PCI proximal LAD into mid LAD, Kissing balloon inflation of the LMT-LAD-LCx bifurcation, DCB proximal LCx, POT of the LMT. 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 Patient was admitted to [facility] main 04-08-24 to 04-15-24 s/p elective LHC which showed all of his prior surgical grafts are occluded (SVG > mid LAD, Svg > OM1, SVG > OM2 and left radial to rPDA) with severe triple vessel rosebud CAD. Patient was admitted for medial optimization and evaluation for CABG vs high risk PCI. Patient was ultimately deemed too high risk for 3rd re-do CABG. The following interventions were performed via cardiac catheterization: - Scoring balloon angioplasty of the proximal-mid LAD with a 3.0 x 20 mm Scoreflex balloon up to 18atm , PTCA of the proximal LCx ISR with a 3.5 x 12 mm NC Emerge balloon up to 12 lane. - IC lithotripsy of the proximal-mid LAD with a 3.0 x 12 mm Shockwave C2+ balloon (60 pulses delivered). - IC lithotripsy of the proximal LCx with a 3.0 x 12 mm Shockwave C2+ balloon (60 pulses delivered). - Successful IVUS guided PCI of the LMT into proximal LAD with a 3.5 x 28 mm Xience Skypoint EES (post dilated with a 3.5 mm NC balloon up to 18 lane in the proximal LAD and a 4.5 mm NC balloon up to 16 lane in the LMT). - Successful IVUS guided PCI of the proximal LAD into mid LAD with a 3.0 x 33 mm Xience Skypoint EES (post dilated with a 3.0 mm NC balloon up to 16 lane in the mid LAD). - Kissing balloon inflation of the LMT-LAD-LCx bifurcation with a 3.5 x 20 mm Emerge balloon in theLAD and a 3.5 x 20 mm - Agent DCB in the proximal LCx up to 12 lane each for 75 seconds. - POT of the LMT with a 4.5 x 12 mm NC balloon up to 20 lane Patient was discharged home in stable condition. Today patient reports he feels good. He denies chest pain, shortness of breath, dyspnea on exertion, orthopnea, PND, palpitations, lightheadedness, syncope, claudication, leg swelling, cough, and wheezing PAST CARDIAC HISTORY: See HPI PAST MEDICAL HISTORY Diagnosis Date Aortic valve disorders Aortic valve disorders CAD (coronary artery disease) Hx of CABG Hyperlipidemia Presence of stent in coronary artery TIA (transient ischemic attack) Urinary retention PAST SURGICAL HISTORY Procedure Laterality Date COLSC FLX W/RMVL OF TUMOR POLYP LESION SNARE TQ 09/01/05 CORONARY ARTERY BYP W/VEIN & ARTERY GRAFT 3 VEIN 2010 CABG, three grafts HEMORRHOIDECTOMY PAST SURGICAL HISTORY OF 1967 excision of chest lump PAST SURGICAL HISTORY OF 12/03/1995 Minimally invasive incision; aortic valve replacement with a PAST SURGICAL HISTORY OF 04/23/2018 TAVR Social History Tobacco Use Smoking status: Never Smokeless tobacco: Never Substance Use Topics Alcohol use: Yes Comment: occ Drug use: No FAMILY HISTORY Problem Relation Age of Onset Cancer Father Colon Cancer Father from cancer other (Myocardial infarction) Mother 70 other (Myocardial infarction) Sister 70 CABG other (Myocardial infarction) Brother 62 CABG age 55, coronary stents other (Myocardial infarction) Maternal Grandmother 92 other (Brain aneurysm) Paternal Grandmother 70 other (CABG) Brother other (coronary stents) Brother other (coronary stents) Brother carotid artery disease ALLERGIES Allergen Reactions Ragweed Pollen Itching, Other: See Comments MEDICATIONS: Current Outpatient Medications Medication Sig aspirin 81 mg chewable tablet Take 1 tablet by mouth once daily. isosorbide mononitrate ER (IMDUR) 60 mg 24 hr tablet Take 1 tablet by mouth once daily. Patient should start on April 16, 2024. nitroglycerin sublingual (NITROQUICK) 0.4 mg SL tablet Dissolve 1 tablet under the tongue every 5 minutes as needed. evolocumab 140 mg/mL subcutaneous pen injector (REPATHA SURECLICK) Inject 140 mg subcutaneously every 2 weeks. clopidogrel (PLAVIX) 75 mg tablet Take 1 tablet by mouth once daily. atorvastatin (LIPITOR) 80 mg tablet Take 1 tablet by mouth daily at bedtime. amLODIPine (NORVASC) 2.5 mg tablet Take 1 tablet by mouth once daily. Ipratropium [place] (ATROVENT) 21 mcg (0.03 %) nasal spray Amoxicillin 500 mg tablet Take 4 tablets by mouth as needed. Prior to dental procedures cetirizine (ZYRTEC) 10 mg tablet Take 10 mg by mouth as needed. albuterol HFA (VENTOLIN HFA) 90 mcg/actuation inhaler Inhale 2 Puffs as instructed every 4 hours asneeded for Wheezing/Shortness of Breath. Multivitamin capsule Take 1 capsule by mouth once daily. acetaminophen (TYLENOL) 325 mg tablet Take 2 tablets by mouth every 4 hours as needed for pain. No current facility-administered medications for this visit. REVIEW OF SYSTEMS: PAIN ASSESSMENT: Denies complaints of acute or chronic pain GENERAL: Denies fevers, chills, night sweats, weight gain or loss HEENT: Denies changes in vision, hearing, nose bleeds, or bleeding gums NECK: Denies neck pain, stiffness, or swelling, or swollen lymph nodes RESPIRATORY: See HPI CARDIOVASCULAR: See HPI GI: Denies difficulty swallowing, nausea, vomiting, diarrhea, constipation, or melena : Denies frequency, urgency, or burning, and hematuria MUSCULOSKELETAL: Denies joint pain, swelling, or stiffness SKIN: Denies rashes, lesions, or tears PSYCH: Denies sleep disturbance, mood disorder, or recent psychosocial stressors HEMATOLOGY/LYMPHOLOGY: Denies prolonged bleeding or easy bruising ENDOCRINE: Denies heat or cold intolerance, polydipsia or polyphagia NEURO: Denies syncope, seizures, or numbness or tingling of hands or feet PHYSICAL EXAMINATION: BP 99/59 Pulse 64 Resp 18 Ht 5' 4 (1.63m) Wt 173 lb (78.5kg) SpO2 100[RA]% BMI 29.68 kg/(m^2). General: No acute distress Skin: warm, dry, and intact; no rashes or lesions noted Neck: No JVD Lungs: Breath sounds clear, respiratory effort normal Heart: Regular rhythm, +murmur, no edema noted Abdomen: Soft nontedner, +BSx4 Extremities: Distal pulses intact, MAEx4 Musculoskeletal: No deformities Neurologic/Psychiatric: Oriented to time, place & person and no gross focal neurologic deficits Sensory Examination: Neuro/Sensation is intact throughout Pulses/Signals: intact throughout CARDIOVASCULAR MEDICINE TESTING: Electrocardiogram 04/23/24: NORMAL SINUS RHYTHM UMESH 160 QRS 90 Last ECHO Result Conclusion ECHO Collected: 04/04/2024 2:53 PM (Final result) Impression: CONCLUSIONS: - Exam indication: Evaluation of prosthetic valve with change in clinical status - The left ventricle is normal in size. There is mild concentric left ventricular hypertrophy. Left ventricular systolic function is normal. EF = 68 5% (2D biplane) Grade I left ventricular diastolic dysfunction. - The right ventricle is normal in size. Right ventricular systolic function is normal. 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 There is no aortic valve regurgitation. The peak gradient is 14 mmHg, the mean gradient is 6 mmHg and the dimensionless valve index is 0.65. - Exam was compared with the prior CC echocardiographic exam performed on 08/06/23 (Jayne). Prior AV pk/mn gradients measured at 8/3 mmHg. Gradients are measuring slightly higher today. * * * Final * * * I have personally reviewed the Electrocardiogram. IMPRESSION: Chloe Wilcox is an 73 year old male with pmhx of: CAD 2011 redo CABG (SV-LAD/OM, SV-PDA), 2020- s/p PCI to LM-Cx 01/26/2021; 3rd redo sternotomy, homograft removal, AVR/Root replacement (Konect 25), CABGx3 (Lt. Radial - PDA, SV-OM1, SV-OM2) 04/14/24 LHC > Scoring balloon angioplasty LAD, PTCA of the proximal LCx ISR, IC lithotripsy proximal-mid LAD, IC lithotripsy proximal LCx, PCI of the LMT into proximal LAD, PCI proximal LAD into mid LAD, Kissing balloon inflation of the LMT-LAD-LCx bifurcation, DCB proximal LCx, POT of the LMT. 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 -- BP Goal < 130/80 with nonpharmacologic and medical therapy -- LDL goal 50% reduction AND level < 55-70 mg/dL using max tolerated statin +/- adjuvant therapy -- HbA1C < 7% -- Healthy diet and exercise +/- weight loss if appropriate. -- Smoking and alcohol abstinence/cessation, if applicable Follow up/Disposition: Cardiac rehab ordered and discussed- to be completed locally Follow-up with Cardiology as scheduled June 2024- or sooner if needed. Check blood pressure daily and record the results. Please bring the results to your next appointment for review. Contact the office if you have blood pressure readings consistently greater than 140/85. If you have worsening chest pain, shortness of breath or syncope, please report to the Emergency room or call 911. Education/Counseling: We have discussed the following pharmacological measures during this visit: Reviewed all medications. Patient is able to get medications with out issues Reviewed any possible side effects of medications. Take ALL medications as prescribed. We discussed the following non-pharmacological measures during this visit: Diet: Eat a low-salt (sodium) diet Read food labels for sodium content. Mediterranean Diet Weight: Check for swelling in your feet, ankles, legs, and stomach. Weigh yourself each morning before breakfast. Compare If your weight goes up or down 4lbs from your dry weight, call your professional healthcare representative Exercise: Be active and exercise every day. Smoking and alcohol abstinence/cessation, if applicable Please Visit [email or web address] Questions or Concerns after you go home? Please call Nurse residential monitor line at . I spent a total of >45 minutes on the date of the service which included preparing to see the patient, [id number] patient care, completing clinical documentation, obtaining and/or reviewing separately obtained history, performing a medically appropriate examination, counseling and educating the patient/family/caregiver, independently interpreting results (not separately reported), communicating results to the patient/family/caregiver, and care coordination (not separately reported). Guadalupe Leach, MSN, BACK PAD INSPECTOR-RETINAL ANGIOGRAPHER, PCCN [facility]25 NoteHNO ID: [id number] Author: GUADALUPE LEACH APRN.CNP Service: ? Author Type: Nurse Practitioner Type: Progress Notes Filed: 04/23/2024 08:42 Note Text: [facility] [place] [facility] Department of Cardiovascular Medicine SECTION OF INTERVENTIONAL CARDIOLOGY OUTPATIENT VISIT DATE April 23, 2024 OUTPATIENT VISIT TYPE ESTABLISHED FOLLOW UP Primary Dialysis Chief Equipment Technician: Kurtis Hastings MD Chief Complaint: Patient here for cardiac follow up evaluation History of Present Illness: Patient is a 73 year old male who presents for follow up visit today. Past medical history includes: CAD 2011 redo CABG (SV-LAD/OM, SV-PDA), 2020- s/p PCI to LM-Cx 01/26/2021; 3rd redo sternotomy, homograft removal, AVR/Root replacement (Konect 25), CABGx3 (Lt. Radial - PDA, SV-OM1, SV-OM2) 04/14/24 LHC > Scoring balloon angioplasty LAD, PTCA of the proximal LCx ISR, IC lithotripsy proximal-mid LAD, IC lithotripsy proximal LCx, PCI of the LMT into proximal LAD, PCI proximal LAD into mid LAD, Kissing balloon inflation of the LMT-LAD-LCx bifurcation, DCB proximal LCx, POT of the LMT. 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 Patient was admitted to [facility] main 04-08-24 to 04-15-24 s/p elective LHC which showed all of his prior surgical grafts are occluded (SVG > mid LAD, Svg > OM1, SVG > OM2 and left radial to rPDA) with severe triple vessel rosebud CAD. Patient was admitted for medial optimization and evaluation for CABG vs high risk PCI. Patient was ultimately deemed too high risk for 3rd re-do CABG. The following interventions were performed via cardiac catheterization: - Scoring balloon angioplasty of the proximal-mid LAD with a 3.0 x 20 mm Scoreflex balloon up to 18 lane , PTCA of the proximal LCx ISR with a 3.5 x 12 mm NC Emerge balloon up to 12 lane. - IC lithotripsy of the proximal-mid LAD with a 3.0 x 12 mm Shockwave C2+ balloon (60 pulses delivered). - IC lithotripsy of the proximal LCx with a 3.0 x 12 mm Shockwave C2+ balloon (60 pulses delivered). - Successful IVUS guided PCI of the LMT into proximal LAD with a 3.5 x 28 mm Xience Skypoint EES (post dilated with a 3.5 mm NC balloon up to 18 lane in the proximal LAD and a 4.5 mm NC balloon up to 16 lane in the LMT). - Successful IVUS guided PCI of the proximal LAD into mid LAD with a 3.0 x 33 mm Xience Skypoint EES (post dilated with a 3.0 mm NC balloon up to 16 lane in the mid LAD). - Kissing balloon inflation of the LMT-LAD-LCx bifurcation with a 3.5 x 20 mm Emerge balloon in the LAD and a 3.5 x 20 mm - Agent DCB in the proximal LCx up to 12 lane each for 75 seconds. - POT of the LMT with a 4.5 x 12 mm NC balloon up to 20 lane Patient was discharged home in stable condition. Today patient reports he feels good. He denies chest pain, shortness of breath, dyspnea on exertion, orthopnea, PND, palpitations, lightheadedness, syncope, claudication, leg swelling, cough, and wheezing PAST CARDIAC HISTORY: See HPI PAST MEDICAL HISTORY Diagnosis Date Aortic valve disorders Aortic valve disorders CAD (coronary artery disease) Hx of CABG Hyperlipidemia Presence of stent in coronary artery TIA (transient ischemic attack) Urinary retention PAST SURGICAL HISTORY Procedure Laterality Date COLSC FLX W/RMVL OF TUMOR POLYP LESION SNARE TQ 09/01/05 CORONARY ARTERY BYP W/VEIN AND ARTERY GRAFT 3 VEIN 2010 CABG, three grafts HEMORRHOIDECTOMY PAST SURGICAL HISTORY OF 1967 excision of chest lump PAST SURGICAL HISTORY OF 12/03/1995 Minimally invasive incision; aortic valve replacement with a PAST SURGICAL HISTORY OF 04/23/2018 TAVR Social History Tobacco Use Smoking status: Never Smokeless tobacco: Never Substance Use Topics Alcohol use: Yes Comment: occ Drug use: No FAMILY HISTORY Problem Relation Age of Onset Cancer Father Colon Cancer Father from cancer other (Myocardial infarction) Mother 70 other (Myocardial infarction) Sister 70 CABG other (Myocardial infarction) Brother 62 CABG age 55, coronary stents other (Myocardial infarction) Maternal Grandmother 92 other (Brain aneurysm) Paternal Grandmother 70 other (CABG) Brother other (coronary stents) Brother other (coronary stents) Brother carotid artery disease ALLERGIES Allergen Reactions Ragweed Pollen Itching, Other: See Comments MEDICATIONS: Current Outpatient Medications Medication Sig aspirin 81 mg chewable tablet Take 1 tablet by mouth once daily. isosorbide mononitrate ER (IMDUR) 60 mg 24 hr tablet Take 1 tablet by mouth once daily. Patient should start on April 16, 2024. nitroglycerin sublingual (NITROQUICK) 0.4 mg SL tablet Dissol (more content not included)...[facility]02-25-2025 NoteHNO ID: [id number] Author: CEM LANDRY APRN.SENDY Service: Cardiovascular Medicine Author Type: Nurse Practitioner Type: Progress Notes Filed: 04/15/2024 11:29 Note Text: [facility]ARD[facility]ICINE PROGRESS NOTE (Template ID [id number]) SERVICE DATE: 04/15/2024 SERVICE TIME: 11:26 AM PRIMARY SERVICE: Intervention, Hvi Card HOSPITAL DAY: #7 INTERVAL HISTORY Underwent PCI yesterday Feels well today Up sitting in the chair Denies c/o chest pain or SOB Creat stable 1.[address] Darling Hogue for discharge PHYSICAL EXAM BP 117/64 Pulse 66 Temp 36.7 ?C (98 ?F) (Oral) Resp 18 Ht 162.6 cm (5' 4) Wt 78.1 kg (172 lb 2.9 oz) SpO2 96% BMI 29.55 kg/m? Intake/Output Summary (Last 24 hours) at 04/15/2024 1126 Last data filed at 04/15/2024 0953 Gross per 24 hour Intake -- Output 825 ml Net -825 ml General Appearance: Well developed and No acute distress HEENT: EOM's intact Lungs: Clear Heart: Regular rate AND rhythm, No heaves, No lifts, No thrills, and No rubs Abdomen: Soft, Non-tender, and Bowel sounds present Skin: Warm Musculoskeletal: No deformities Neurologic/Psychiatric: Oriented to time, place AND person and Right groin clean dry and intact Left groin clean dry and intact MEDICATIONS Current Facility-Administered Medications Medication Dose Route Frequency clopidogrel 75 mg tab(s) (PLAVIX) 75 mg ORAL DAILY aspirin 81 mg chewable tab(s) 81 mg ORAL DAILY atorvastatin 80 mg tab(s) (LIPITOR) 80 mg ORAL AT BEDTIME albuterol 2.5 mg /3 mL (0.083 %) 2.5 mg (PROVENTIL) 2.5 mg INHALATION q 6 H PRN NaCl 0.9% iv flush bag 20 mL INTRAVENOUS PRN acetaminophen 1,000 mg tab(s) (TYLENOL) 1,000 mg ORAL q 8 H PRN melatonin 1 mg tab(s) 1 mg ORAL DAILY (8 PM) polyethylene glycol 3350 17 g packet 17 g ORAL DAILY enoxaparin 40 mg injection (LOVENOX) 40 mg SUBCUTANEOUS q 24 HR isosorbide mononitrate ER 60 mg tab(s) (IMDUR) 60 mg ORAL DAILY amLODIPine 2.5 mg tab(s) (NORVASC) 2.5 mg ORAL DAILY DATA: Diagnostic tests reviewed for today's visit: Most recent labs and imaging results. Medication and Non-Pharmacologic VTE Prophylaxis/Anticoagulants Anticoagulant AND Antiplatelet Medications (From admission, onward) Start Dose Route Frequency Last Action Ordered Stop 02/19/25 0900 clopidogrel 75 mg tab(s) (PLAVIX) 75 mg ORAL DAILY Given, 04/15 92804/08/24 1554 -- 04/09/24899 aspirin 81 mg chewable tab(s) 81 mg ORAL DAILY Given, 04/15 92804/08/24 1554 -- 04/09/24799 enoxaparin 40 mg injection (LOVENOX) (Medical Risk Categories) 40 mg SUBCUTANEOUS EVERY 24 HOURS Given, 04/12 80804/08/24 155 -- VTE Prophylaxis: VTE prophylaxis appropriate ASSESSMENT AND PLAN HISTORY Chloe Wilcox is an 73 year old male with pmhx of: CAD -2010 redo CABG (SV-LAD/OM, SV-PDA), -2019- s/p PCI to LM-Cx -01/26/2021; 3rd redo sternotomy, homograft removal, AVR/Root replacement (Konect 25), CABGx3 (Lt. 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 Hastings's recently seen virtually in [facility] on 04/01/2024 by JOHN for significant progressive angina very similar to his prior angina. He was schedule for elective cardiac cath on 04/08/[address] Hastings. Patient underwent cardiac cath and found that all his prior surgical grafts are occluded (SVG > mid LAD, Svg > OM1, SVG > OM2 and left radial to rPDA) with severe triple vessel rosebud CAD. Attempted to engage the LM with a 6F XB 3.5 guide and the patient developed chest pain and anterior ST depressions. The cath was subsequently disengaged from the LM and the patient's chest pain resolved. Patient directly admitted forCoronary CTA to further interrogate/ confirm graft failure, anti-anginal medication titration and consideration for high risk PCI to LAD, DCB to the LCX and possible STITCHDOWNS TOE FORMER intervention to the RCA vs. Repeat CABG. HOSPITAL COURSE: Optimizing antianginals and GDMT, High risk PCI +/- impella with Dr. Pennington vs redo CABG with Dr. Eden. Coronary CTA completed one aorto-coronary graft (to PDA) appears patent, all others occluded from their origins. [place] coronary arteries with diffuse severe atherosclerotic changes and stenoses (>75%). Severe obstructive disease and extensive amount of plaque. Patient too high risk for 3rd redo CABG d/t no available conduits. S/p - IABP placement (removed post procedure) Scoring balloon angioplasty of the proximal-mid LAD with a 3.0 x 20 mm Scoreflex balloon up to 18 lane , PTCA of the proximal LCx ISR with a 3.5 x 12 mm NC Emerge balloon up to 12 lane. IC lithotripsy of the proximal-mid LAD with a 3.0 x 12 mm Shockwave C2+ balloon (more content not included)...[facility]02-24-2025 NoteHNO ID: [id number] Author: KAVITHA BINGHAM APRN.CNP Service: Cardiovascular Medicine Author Type: Nurse Practitioner Type: Progress Notes Filed: 04/14/2024 14:48 Note Text: [facility]ARDI[facility]ICINE PROGRESS NOTE (Template ID [id number]) SERVICE DATE: 04/14/2024 SERVICE TIME: 11:00 PRIMARY SERVICE: Intervention, Hvi Card HOSPITAL DAY: #6 INTERVAL HISTORY Scheduled for Direct PCI to LAD with Impella with Dr. Pennington Beta-jana discontinued d/t SB 40's-50's at rest. Home amlodipine restarted PHYSICAL EXAM BP 138/70 Pulse (!) 53 Temp 36.8 ?C (98.3 ?F) (Oral) Resp 19 Ht 162.6 cm (5' 4) Wt 76.9 kg (169 lb 8.5 oz) SpO2 98% BMI 29.10 kg/m? No intake or output data in the 24 hours ending 04/14/24 1439 General Appearance: No acute distress HEENT: EOM's intact Lungs: Clear and Respiratory effort: normal Heart: Regular rate AND rhythm, No heaves, No lifts, No thrills, No rubs, and S1, S2 normal Abdomen: Soft, Non-tender, and Bowel sounds present Skin: Warm and No rash on chest, arms or legs Musculoskeletal: No deformities Neurologic/Psychiatric: Oriented to time, place AND person MEDICATIONS Current Facility-Administered Medications Medication Dose Route Frequency clopidogrel 75 mg tab(s) (PLAVIX) 75 mg ORAL DAILY aspirin 81 mg chewable tab(s) 81 mg ORAL DAILY atorvastatin 80 mg tab(s) (LIPITOR) 80 mg ORAL AT BEDTIME albuterol 2.5 mg /3 mL (0.083 %) 2.5 mg (PROVENTIL) 2.5 mg INHALATION q 6 H PRN NaCl 0.9% iv flush bag 20 mL INTRAVENOUS PRN acetaminophen 1,000 mg tab(s) (TYLENOL) 1,000 mg ORAL q 8 H PRN melatonin 1 mg tab(s) 1 mg ORAL DAILY (8 PM) polyethylene glycol 3350 17 g packet 17 g ORAL DAILY [Order Held by LIP] enoxaparin 40 mg injection (LOVENOX) 40 mg SUBCUTANEOUS q 24 HR ondansetron (PF) 4 mg injection (ZOFRAN) 4 mg INTRAVENOUS PRN isosorbide mononitrate ER 60 mg tab(s) (IMDUR) 60 mg ORAL DAILY amLODIPine 2.5 mg tab(s) (NORVASC) 2.5 mg ORAL DAILY DATA: Diagnostic tests reviewed for today's visit: Most recent labs and imaging results. Medication and Non-Pharmacologic VTE Prophylaxis/Anticoagulants Anticoagulant AND Antiplatelet Medications (From admission, onward) Start Dose Route Frequency Last Action Ordered Stop 04/09/24 0900 clopidogrel 75 mg tab(s) (PLAVIX) 75 mg ORAL DAILY Given, 04/14 75204/08/24 1554 -- 04/09/24 0900 aspirin 81 mg chewable tab(s) 81 mg ORAL DAILY Given, 04/14 07504/08/24 1554 -- 04/09/24 0800 [Order Held by LIP] enoxaparin 40 mg injection (LOVENOX) (Medical Risk Categories) (On hold since yesterday at 0730 for 2 doses; held by Palomo Ovalle MDHold Reason: LIP Order to Hold This Dose) On hold since yesterday at 0730 for 2 doses (Needs Review) Hold reason: LIP Order to Hold This Dose 40 mg SUBCUTANEOUS EVERY 24 HOURS Given, 04/12 0804/08/24 1554 -- VTE Prophylaxis: VTE prophylaxis appropriate ASSESSMENT AND PLAN HISTORY Chloe Wilcox is an 73 year old male with pmhx of: CAD -2010 redo CABG (SV-LAD/OM, SV-PDA), -2019- s/p PCI to LM-Cx -01/26/2021; 3rd redo sternotomy, homograft removal, AVR/Root replacement (Konect 25), CABGx3 (Lt. 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 Hastings's recently seen virtually in [facility] on 04/01/2024 by JOHN for significant progressive angina very similar to his prior angina. He was schedule for elective cardiac cath on 04/08/[address] Hastings. Patient underwent cardiac cath and found that all his prior surgical grafts are occluded (SVG > mid LAD, Svg > OM1, SVG > OM2 and left radial to rPDA) with severe triple vessel rosebud CAD. Attempted to engage the LM with a 6F XB 3.5 guide and the patient developed chest pain and anterior ST depressions. The cath was subsequently disengaged from the LM and the patient's chest pain resolved. Patient directly admitted forCoronary CTA to further interrogate/ confirm graft failure, anti-anginal medication titration and consideration for high risk PCI to LAD, DCB to the LCX and possible STITCHDOWNS TOE FORMER intervention to the RCA vs. Repeat CABG. HOSPITAL COURSE: Optimizing antianginals and GDMT, High risk PCI +/- impella with Dr. Pennington vs redo CABG with Dr. Eden. Coronary CTA completed one aorto-coronary graft (to PDA) appears patent, all others occluded from their origins. [place] coronary arteries with diffuse severe atherosclerotic changes and stenoses (>75%). Severe obstructive disease and extensive amount of plaque. Patient too high risk for 3rd redo CABG d/t no available conduits. Plan to proceed with direct PCI to LAD with impella with Dr. Pennington on Sunday04/14/2024. PLAN AND RECOMMENDATIONS: A (more content not included)...[facility]02-24-2025 NoteHNO ID: [id number] Author: RON PENNINGTON MD Service: Interventional Cardiology Author Type: Fellow Type: Procedures Filed: 04/15/2024 10:10 Note Text: Attestation signed by Ron Pennington MD at 04/15/2024 10:10 AM Ron Pennington MD Chloe Wilcox DATE: April 14, 2024 Attending: Ron Pennington MD Interventional Fellow: Ebenezer Lorenzana MD and Flaquito Dawn MD HISTORY OF PRESENT ILLNESS: Mr. 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 DIAGNOSTIC ANGIOGRAPHY Diagnostic angiography performed on 04/08/24 showed severe rosebud multivessel disease with no patent grafts. Please see the separate diagnostic angiography report in Epic for full details of the diagnostic coronary angiogram. PROCEDURES PERFORMED: - IABP placement (removed post procedure) - Scoring balloon angioplasty of the proximal-mid LAD with a 3.0 x 20 mm Scoreflex balloon up to 18 lane - PTCA of the proximal LCx ISR with a 3.5 x 12 mm NC Emerge balloon up to 12 lane. - IC lithotripsy of the proximal-mid LAD with a 3.0 x 12 mm Shockwave C2+ balloon (60 pulses delivered). - IC lithotripsy of the proximal LCx with a 3.0 x 12 mm Shockwave C2+ balloon (60 pulses delivered). - Successful IVUS guided PCI of the LMT into proximal LAD with a 3.5 x 28 mm Xience Skypoint EES (post dilated with a 3.5 mm NC balloon up to 18 lane in the proximal LAD and a 4.5 mm NC balloon up to 16 lane in the LMT). - Successful IVUS guided PCI of the proximal LAD into mid LAD with a 3.0 x 33 mm Xience Skypoint EES (post dilated with a 3.0 mm NC balloon up to 16 lane in the mid LAD). - Kissing balloon inflation of the LMT-LAD-LCx bifurcation with a 3.5 x 20 mm Emerge balloon in the LAD and a 3.5 x 20 mm Agent DCB in the proximal LCx up to 12 lane each for 75 seconds. - POT of the LMT with a 4.5 x 12 mm NC balloon up to 20 lane. PROCEDURAL DETAILS Access: 7 Fr right common femoral artery , 8 Fr left common femoral artery (for IABP) Guide Catheter(s): 7 Fr EBU 3.5 (with side holes) Guidewire(s): Marcelo blue Other Equipment: 6 Fr Guideliner, 6 Fr Opticross HD IVUS Anticoagulation: UFH Additional Procedural Medications: Procedural sedation, nitrgolycerin PROCEDURAL NARRATIVE: We obtained R FOREST EXAMINER access and a 7 Fr long sheath was placed in the artery. We then obtained left FOREST EXAMINER access and after preclosure in the usual fashion, an 8 [place] short sheath was placed in the left FOREST EXAMINER. Diagnostic angiography of the SVG-PDA graft was obtained using MPA 2 catheter. Following this, through the 8 [place] sheath, an IABP was advanced to the descending aorta and started with one-to-one augmentation. We then engaged the LMT with the 7 Fr EBU 3.5 guide catheter. After administering heparin to a goal ACT of >250s, we advanced a marcelo blue coronary wire to the distal OM1 followed by a marcelo blue wire to the distal LAD. We attempted to deliver a 2.5 x 15 mm semicompliant balloon across the proximal LAD although had difficulty traversing the stent struts of the LMT-LCx stent. We were able to pass a 1.5 x 15 mm sapphire balloon and dilated the ostium of the LAD with this up to 16 lane. Following this, we were able to pass a 2.5 x 15 mm Emerge balloon and dilated the ostium/proximal LAD with this up to 14 lane. We then performed IVUS imaging of the LAD which showed severe diffuse disease in the proximal-mid vessel with severe calcification/calcified nodules. IVUS of the LCx was also performed which showed severe in-stent re-stenosis in the ostial/proximal LCx. Given the IVUS findings, we further dilated the proximal LCx with a 3.5 x 12 mm NC Emerge balloon up to 12 lane followed by scoring balloon angioplasty of the LAD with a 3.0 x 20 mm score flex balloon with multiple inflations up to 8 lane. Given the significant calcium burden, we proceeded to perform IC lithotripsy of the proximal-mid LAD and proximal LCx with a 3.0 x 12 mm shockwave C2 plus balloon delivering 60 pulses in each vessel. We then attempted to advance a 3.0 x 33 mm Xience Skypoint EES into the LAD although had difficulty crossing the ostium. We further dilated the ostial LAD with a 3.5 x 12 mm NC balloon up to 12 lane following which we were able to deliver our stent. We then stented the proximal-mid LAD with the 3.0 x 33 mm Xience skypoint EES at 12 lane and further dilated the stent with a 3.0 x 20 mm NC Emerge balloon up to 16 lane. Next, we stented the LMT into the proximal LAD with an overlapping 3.5 x 28 mm Xience Skypoint EES, making sure to cover the ostium of the LMT and to overlap (more content not included)...[facility]02-24-2025 NoteHNO ID: [id number] Author: KHLOE BELTRAN RN Service: Care Management Author Type: Registered Nurse Type: Care Mgt Progress Note Filed: 04/14/2024 10:06 Note Text: CARE MANAGEMENT PROGRESS NOTE SERVICE DATE: 04/14/2024 SERVICE TIME: 10:04 AM LOS: 6 days Needs Prior to Discharge: To Be Determined Per EMR, plan for high risk PCI to LAD with impella with Dr. Pennington today. On RA, 6-clicks 24. May benefit from post-procedure PT eval. Family to transport. CM will continue to follow for discharge planning needs. Please contact CM listed in Care Team for assistance. SIGNATURE: Khloe Beltran RN PATIENT NAME: Chloe Wilcox DATE: April 14, 2024 TIME: 10:04 [facility]02-23-2025 NoteHNO ID: [id number] Author: PALOMO OVALLE MD Service: Cardiovascular Medicine Author Type: Fellow Type: Progress Notes Filed: 04/13/2024 07:31 Note Text: Attestation signed by Amelia Jackson MD at 04/13/2024 1:26 PM [facility] STAFF PHYSICIAN NOTE OF PERSONAL INVOLVEMENT IN CARE Patient is a 73 year old male with CAD and multiple prior surgeries including AVR, TAVR and CABG x 2 (2010 and again in 2020 at the time of AVR and Root replacement. Now with complex CAD awaits CHIP. Feeling well without complaints IMPRESSION: CAD with multiple prior CABG surgeries and now with occluded grafts. Awaits PCI History of AVR and then TAVR and later redo AVR and root replacement PLAN: PCI on Sunday DAPT I have reviewed the documentation obtained and documented by the Fellow and I have personally performed a face to face assessment of the patient and have personally participated in the ron components of the visit which includes medical decision making.. I have discussed the case and management of the patient's care. (Inpatient): I personally spent 15 total minutes total time in the management and care of this patient. STAFF PHYSICIAN: Amelia Jackson MD DATE OF SERVICE: April 13, 2024 [facility] PROGRESS NOTE (Template ID [id number]) SERVICE DATE: 04/11/2024 SERVICE TIME: 11:15 PRIMARY SERVICE: Intervention, Hvi Card HOSPITAL DAY: #5 INTERVAL HISTORY Atenolol held for bradycardia LMWH held ahead of procedure tomorrow Plan for direct PCI to LAD on Sunday with impella with Dr. Pennington. PHYSICAL EXAM BP 121/73 Pulse (!) 46 Temp 36.6 ?C (97.9 ?F) (Oral) Resp 18 Ht 162.6 cm (5' 4) Wt 78.2 kg (172 lb 6.4 oz) SpO2 96% BMI 29.59 kg/m? Intake/Output Summary (Last 24 hours) at 04/13/2024 0730 Last data filed at 04/13/2024 0600 Gross per 24 hour Intake 1270 ml Output -- Net 1270 ml General Appearance: No acute distress HEENT: EOM's intact Lungs: Clear and Respiratory effort: normal Heart: Regular rate AND rhythm, No heaves, No lifts, No thrills, No rubs, and S1, S2 normal Abdomen: Soft, Non-tender, and Bowel sounds present Skin: Warm and No rash on chest, arms or legs Musculoskeletal: No deformities Neurologic/Psychiatric: Oriented to time, place AND person ACCESS SITE ASSESSMENT: Arterial Access SITES: Groin - right; Clean, dry and intact Motor Affected Extremity: muscle strength 5/5 both upper and lower extremities Sensory Examination: Neuro/Sensation is intact throughout Pulses/Signals: Dorsalis Pedis Right: Palpable +2 - Left: Palpable +2 MEDICATIONS Current Facility-Administered Medications Medication Dose Route Frequency clopidogrel 75 mg tab(s) (PLAVIX) 75 mg ORAL DAILY aspirin 81 mg chewable tab(s) 81 mg ORAL DAILY atorvastatin 80 mg tab(s) (LIPITOR) 80 mg ORAL AT BEDTIME albuterol 2.5 mg /3 mL (0.083 %) 2.5 mg (PROVENTIL) 2.5 mg INHALATION q 6 H PRN NaCl 0.9% iv flush bag 20 mL INTRAVENOUS PRN acetaminophen 1,000 mg tab(s) (TYLENOL) 1,000 mg ORAL q 8 H PRN melatonin 1 mg tab(s) 1 mg ORAL DAILY (8 PM) polyethylene glycol 3350 17 g packet 17 g ORAL DAILY [Order Held by [facility]] enoxaparin 40 mg injection (LOVENOX) 40 mg SUBCUTANEOUS q 24 HR ondansetron (PF) 4 mg injection (ZOFRAN) 4 mg INTRAVENOUS PRN [Order Held by [facility]] atenolol 12.5 mg tab(s) (TENORMIN) 12.5 mg ORAL DAILY isosorbide mononitrate ER 60 mg tab(s) (IMDUR) 60 mg ORAL DAILY DATA: Diagnostic tests reviewed for today's visit: Most recent labs and imaging results. Medication and Non-Pharmacologic VTE Prophylaxis/Anticoagulants Anticoagulant AND Antiplatelet Medications (From admission, onward) Start Dose Route Frequency Last Action Ordered Stop 04/09/24 0900 clopidogrel 75 mg tab(s) (PLAVIX) 75 mg ORAL DAILY Given, 04/12 0804/08/24 1554 -- 04/09/24 0900 aspirin 81 mg chewable tab(s) 81 mg ORAL DAILY Given, 04/12 0804/08/24 1554 -- 04/09/24 0800 [Order Held by [facility]] enoxaparin 40 mg injection (LOVENOX) (Medical Risk Categories) (On hold since today at 0730 for 2 doses; held by Palomo Ovalle MDHold Reason: LIP Order to Hold This Dose) On hold since today at 0730 for 2 doses Hold reason: LIP Order to Hold This Dose 40 mg SUBCUTANEOUS EVERY 24 HOURS Given, 04/12 0804/08/24 1554 -- VTE Prophylaxis: VTE prophylaxis appropriate ASSESSMENT AND PLAN HISTORY Chloe Wilcox is an 73 year old male with pmhx of: CAD -2010 redo CABG (SV-LAD/OM, SV-PDA), -2019- s/p PCI to LM-Cx -01/26/2021; 3rd redo sternotomy, homograft removal, AVR/Root replacement (Konect 25), CABGx3 (Lt. Radial - PDA, SV-OM1, SV-OM2) Valvular heart disease -1995 s/p homograft root replacement -2018 s/p TAVR (23mm S3) -01/26/2021 homograft removal, AVR/Ro (more content not included)...[facility]02-22-2025 NoteHNO ID: [id number] Author: PALOMO OVALLE MD Service: Cardiovascular Medicine Author Type: Fellow Type: Progress Notes Filed: 04/12/2024 07:53 Note Text: Attestation signed by Amelia Jackson MD at 04/12/2024 11:10 AM [facility] STAFF PHYSICIAN NOTE OF PERSONAL INVOLVEMENT IN CARE Patient is a 73 year old male with CAD and multiple prior surgeries including AVR, TAVR and CABG x 2 (2010 and again in 2020 at the time of AVR and Root replacement. Now with complex CAD awaits CHIP. Feeling well without complaints IMPRESSION: CAD with multiple prior CABG surgeries and now with occluded grafts. Awaits PCI History of AVR and then TAVR and later redo AVR and root replacement PLAN: PCI on Sunday DAPT I have reviewed the documentation obtained and documented by the Fellow and I have personally performed a face to face assessment of the patient and have personally participated in the ron components of the visit which includes medical decision making.. I have discussed the case and management of the patient's care. (Inpatient): I personally spent 15 total minutes total time in the management and care of this patient. STAFF PHYSICIAN: Amelia Jackson MD DATE OF SERVICE: April 12, 2024 TIME OF SERVICE: 9:17 AM [facility] PROGRESS NOTE (Template ID [id number]) SERVICE DATE: 04/11/2024 SERVICE TIME: 11:15 PRIMARY SERVICE: Intervention, Hvi Card HOSPITAL DAY: #4 INTERVAL HISTORY Amlodipine on hold d/t SBP Atenolol decreased to 12.5 mg , remains sinus scotty Plan for direct PCI to LAD on Sunday with impella with Dr. Pennington. Lovenox to be held Sunday morning PHYSICAL EXAM BP 121/60 Pulse (!) 49 Temp 36.6 ?C (97.9 ?F) (Oral) Resp 18 Ht 162.6 cm (5' 4) Wt 78.7 kg (173 lb 8 oz) SpO2 95% BMI 29.78 kg/m? Intake/Output Summary (Last 24 hours) at 04/12/2024 0751 Last data filed at 04/11/2024 1255 Gross per 24 hour Intake 360 ml Output -- Net 360 ml General Appearance: No acute distress HEENT: EOM's intact Lungs: Clear and Respiratory effort: normal Heart: Regular rate AND rhythm, No heaves, No lifts, No thrills, No rubs, and S1, S2 normal Abdomen: Soft, Non-tender, and Bowel sounds present Skin: Warm and No rash on chest, arms or legs Musculoskeletal: No deformities Neurologic/Psychiatric: Oriented to time, place AND person ACCESS SITE ASSESSMENT: Arterial Access SITES: Groin - right; Clean, dry and intact Motor Affected Extremity: muscle strength 5/5 both upper and lower extremities Sensory Examination: Neuro/Sensation is intact throughout Pulses/Signals: Dorsalis Pedis Right: Palpable +2 - Left: Palpable +2 MEDICATIONS Current Facility-Administered Medications Medication Dose Route Frequency clopidogrel 75 mg tab(s) (PLAVIX) 75 mg ORAL DAILY aspirin 81 mg chewable tab(s) 81 mg ORAL DAILY atorvastatin 80 mg tab(s) (LIPITOR) 80 mg ORAL AT BEDTIME albuterol 2.5 mg /3 mL (0.083 %) 2.5 mg (PROVENTIL) 2.5 mg INHALATION q 6 H PRN NaCl 0.9% iv flush bag 20 mL INTRAVENOUS PRN acetaminophen 1,000 mg tab(s) (TYLENOL) 1,000 mg ORAL q 8 H PRN melatonin 1 mg tab(s) 1 mg ORAL DAILY (8 PM) polyethylene glycol 3350 17 g packet 17 g ORAL DAILY enoxaparin 40 mg injection (LOVENOX) 40 mg SUBCUTANEOUS q 24 HR ondansetron (PF) 4 mg injection (ZOFRAN) 4 mg INTRAVENOUS PRN atenolol 12.5 mg tab(s) (TENORMIN) 12.5 mg ORAL DAILY isosorbide mononitrate ER 60 mg tab(s) (IMDUR) 60 mg ORAL DAILY DATA: Diagnostic tests reviewed for today's visit: Most recent labs and imaging results. Medication and Non-Pharmacologic VTE Prophylaxis/Anticoagulants Anticoagulant AND Antiplatelet Medications (From admission, onward) Start Dose Route Frequency Last Action Ordered Stop 04/09/24899 clopidogrel 75 mg tab(s) (PLAVIX) 75 mg ORAL DAILY Given, 04/11 93304/08/24 1554 -- 04/09/24 0900 aspirin 81 mg chewable tab(s) 81 mg ORAL DAILY Given, 04/11 93304/08/24 1554 -- 04/09/24 08 enoxaparin 40 mg injection (LOVENOX) (Medical Risk Categories) 40 mg SUBCUTANEOUS EVERY 24 HOURS Given, 04/11 93304/08/24 155 -- VTE Prophylaxis: VTE prophylaxis appropriate ASSESSMENT AND PLAN HISTORY Chloe Wilcox is an 73 year old male with pmhx of: CAD -2010 redo CABG (SV-LAD/OM, SV-PDA), -2019- s/p PCI to LM-Cx -01/26/2021; 3rd redo sternotomy, homograft removal, AVR/Root replacement (Konect 25), CABGx3 (Lt. 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 HFpEF 63% First degree AVB ASSESSMENT/ IMPRESSION Patient of (more content not included)...[facility]02-21-2025 NoteHNO ID: [id number] Author: KAVITHA BINGHAM APRN.RETINAL ANGIOGRAPHER Service: Cardiovascular Medicine Author Type: Nurse Practitioner Type: Progress Notes Filed: 04/11/2024 16:38 Note Text: [facility] PROGRESS NOTE (Template ID [id number]) SERVICE DATE: 04/11/2024 SERVICE TIME: 11:15 PRIMARY SERVICE: Intervention, Hvi Card HOSPITAL DAY: #3 INTERVAL HISTORY Amlodipine on hold d/t SBP Atenolol decreased to 12.5 mg daily d/t bradycardia Plan for direct PCI to LAD on Sunday with impella with Dr. Pennington. Lovenox to be held Sunday morning PHYSICAL EXAM BP 108/65 Pulse (!) 51 Temp 36.6 ?C (97.9 ?F) (Oral) Resp 16 Ht 162.6 cm (5' 4) Wt 78.7 kg (173 lb 8 oz) SpO2 98% BMI 29.78 kg/m? Intake/Output Summary (Last 24 hours) at 04/11/2024 1638 Last data filed at 04/11/2024 1255 Gross per 24 hour Intake 360 ml Output -- Net 360 ml General Appearance: No acute distress HEENT: EOM's intact Lungs: Clear and Respiratory effort: normal Heart: Regular rate AND rhythm, No heaves, No lifts, No thrills, No rubs, and S1, S2 normal Abdomen: Soft, Non-tender, and Bowel sounds present Skin: Warm and No rash on chest, arms or legs Musculoskeletal: No deformities Neurologic/Psychiatric: Oriented to time, place AND person ACCESS SITE ASSESSMENT: Arterial Access SITES: Groin - right; Clean, dry and intact Motor Affected Extremity: muscle strength 5/5 both upper and lower extremities Sensory Examination: Neuro/Sensation is intact throughout Pulses/Signals: Dorsalis Pedis Right: Palpable +2 - Left: Palpable +2 MEDICATIONS Current Facility-Administered Medications Medication Dose Route Frequency clopidogrel 75 mg tab(s) (PLAVIX) 75 mg ORAL DAILY aspirin 81 mg chewable tab(s) 81 mg ORAL DAILY atorvastatin 80 mg tab(s) (LIPITOR) 80 mg ORAL AT BEDTIME albuterol 2.5 mg /3 mL (0.083 %) 2.5 mg (PROVENTIL) 2.5 mg INHALATION q 6 H PRN NaCl 0.9% iv flush bag 20 mL INTRAVENOUS PRN acetaminophen 1,000 mg tab(s) (TYLENOL) 1,000 mg ORAL q 8 H PRN melatonin 1 mg tab(s) 1 mg ORAL DAILY (8 PM) polyethylene glycol 3350 17 g packet 17 g ORAL DAILY enoxaparin 40 mg injection (LOVENOX) 40 mg SUBCUTANEOUS q 24 HR ondansetron (PF) 4 mg injection (ZOFRAN) 4 mg INTRAVENOUS PRN atenolol 12.5 mg tab(s) (TENORMIN) 12.5 mg ORAL DAILY isosorbide mononitrate ER 60 mg tab(s) (IMDUR) 60 mg ORAL DAILY DATA: Diagnostic tests reviewed for today's visit: Most recent labs and imaging results. Medication and Non-Pharmacologic VTE Prophylaxis/Anticoagulants Anticoagulant AND Antiplatelet Medications (From admission, onward) Start Dose Route Frequency Last Action Ordered Stop 04/09/24899 clopidogrel 75 mg tab(s) (PLAVIX) 75 mg ORAL DAILY Given, 04/11 93304/08/24 1554 -- 04/09/24 09 aspirin 81 mg chewable tab(s) 81 mg ORAL DAILY Given, 04/11 93304/08/24 1554 -- 04/09/24 08 enoxaparin 40 mg injection (LOVENOX) (Medical Risk Categories) 40 mg SUBCUTANEOUS EVERY 24 HOURS Given, 04/11 93304/08/24 1554 -- VTE Prophylaxis: VTE prophylaxis appropriate ASSESSMENT AND PLAN HISTORY Chloe Wilcox is an 73 year old male with pmhx of: CAD -2010 redo CABG (SV-LAD/OM, SV-PDA), -2019- s/p PCI to LM-Cx -01/26/2021; 3rd redo sternotomy, homograft removal, AVR/Root replacement (Konect 25), CABGx3 (Lt. 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 Hastings's recently seen virtually in [facility] on 04/01/2024 by JOHN for significant progressive angina very similar to his prior angina. He was schedule for elective cardiac cath on 04/08/[address] Hastings. Patient underwent cardiac cath and found that all his prior surgical grafts are occluded (SVG > mid LAD, Svg > OM1, SVG > OM2 and left radial to rPDA) with severe triple vessel rosebud CAD. Attempted to engage the LM with a 6F XB 3.5 guide and the patient developed chest pain and anterior ST depressions. The cath was subsequently disengaged from the LM and the patient's chest pain resolved. Patient directly admitted forCoronary CTA to further interrogate/ confirm graft failure, anti-anginal medication titration and consideration for high risk PCI to LAD, DCB to the LCX and possible STITCHDOWNS TOE FORMER intervention to the RCA vs. Repeat CABG. HOSPITAL COURSE: Optimizing antianginals and GDMT, High risk PCI +/- impella with Dr. Pennington vs redo CABG with Dr. Eden. Coronary CTA completed one aorto-coronary graft (to PDA) appears patent, all others occluded from their origins. [place] coronary arteries with diffuse severe atherosclerotic changes and stenoses (>75%). Severe obstructive disease and extensive amount of plaque. Patient too high ri (more content not included)...[facility]02-21-2025 NoteHNO ID: [id number] Author: JUSTIN PEREZ RN Service: Care Management Author Type: Registered Nurse Type: Care Mgt Progress Note Filed: 04/11/2024 08:57 Note Text: CARE MANAGEMENT PROGRESS NOTE SERVICE DATE: 04/11/2024 SERVICE TIME: 8:55 AM LOS: 3 days Post-Acute Discharge Planning Patient Goal(s): General wellness, Increase strength, Be able to go home [place] of Choice Explained: [place] of Choice Given: No Reason Not Given: No placements necessary Discharge Planning Participant(s): Patient Patient/Family Comments: Anticipated # of Days Until Discharge: 5 Transport at Discharge: Transportation Arrangements: Car Destination: Home Needs Prior to Discharge: Needs Prior to Discharge: To Be Determined Post-Acute Discharge Plan: -Plan for direct PCI to LAD with impella on Sunday with Dr. 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 Active family support. Currently no skilled needs. Possible PT/OT eval? Family to provide transport. CM to follow for discharge planning. Please see Treatment Team for Care Management Weekend/Holiday coverage. SIGNATURE: Justin Perez RN PATIENT NAME: Chloe Wilcox DATE: April 11, 2024 TIME: 8:55 [facility]02-20-2025 NoteHNO ID: [id number] Author: SULLY MALLORY, Dustin Service: Pharmacy Author Type: Dumper Bulk System Type: Plan of Care Filed: 04/10/2024 16:28 Note Text: Insurance investigation completed Patient has active prescription insurance: Yes - Patient's insurance is in-network with [facility] Insurance loaded into [facility]: Yes Test claim was completed to verify insurance is active: Successful Any questions, please reach out to your medication access services librarian. Sully Mallory CPhT Medication Elder Counselor [phone]25 NoteHNO ID: [id number] Author: KAVITHA BINGHAM APRN.CNP Service: Cardiovascular Medicine Author Type: Nurse Practitioner Type: Progress Notes Filed: 04/10/2024 12:50 Note Text: [facility] PROGRESS NOTE (Template ID [id number]) SERVICE DATE: 04/10/2024 SERVICE TIME: 10:00 PRIMARY SERVICE: Intervention, Hvi Card HOSPITAL DAY: #2 INTERVAL HISTORY No events overnight, patient denies cP/SOB HR mid 50's, atenolol reduced to 50 mg daily, will reassess dosing tomorrow Plan for direct PCI to LAD with impella on Sunday with Dr. Pennington PHYSICAL EXAM BP 101/59 Pulse (!) 52 Temp 36.6 ?C (97.8 ?F) (Oral) Resp 18 Ht 162.6 cm (5' 4) Wt 76.5 kg (168 lb 10.4 oz) SpO2 94% BMI 28.95 kg/m? Intake/Output Summary (Last 24 hours) at 04/10/2024 1246 Last data filed at 04/10/2024 0146 Gross per 24 hour Intake 120 ml Output 0 ml Net 120 ml General Appearance: No acute distress HEENT: EOM's intact Lungs: Clear and Respiratory effort: normal Heart: Regular rate AND rhythm, No heaves, No lifts, No thrills, No rubs, and S1, S2 normal Abdomen: Soft, Non-tender, and Bowel sounds present Skin: Warm and No rash on chest, arms or legs Musculoskeletal: No deformities Neurologic/Psychiatric: Oriented to time, place AND person ACCESS SITE ASSESSMENT: Arterial Access SITES: Groin - right; Clean, dry and intact Motor Affected Extremity: muscle strength 5/5 both upper and lower extremities Sensory Examination: Neuro/Sensation is intact throughout Pulses/Signals: Dorsalis Pedis Right: Palpable +2 - Left: Palpable +2 MEDICATIONS Current Facility-Administered Medications Medication Dose Route Frequency clopidogrel 75 mg tab(s) (PLAVIX) 75 mg ORAL DAILY aspirin 81 mg chewable tab(s) 81 mg ORAL DAILY amLODIPine 2.5 mg tab(s) (NORVASC) 2.5 mg ORAL DAILY atorvastatin 80 mg tab(s) (LIPITOR) 80 mg ORAL AT BEDTIME albuterol 2.5 mg /3 mL (0.083 %) 2.5 mg (PROVENTIL) 2.5 mg INHALATION q 6 H PRN NaCl 0.9% iv flush bag 20 mL INTRAVENOUS PRN acetaminophen 1,000 mg tab(s) (TYLENOL) 1,000 mg ORAL q 8 H PRN melatonin 1 mg tab(s) 1 mg ORAL DAILY (8 PM) polyethylene glycol 3350 17 g packet 17 g ORAL DAILY enoxaparin 40 mg injection (LOVENOX) 40 mg SUBCUTANEOUS q 24 HR ondansetron (PF) 4 mg injection (ZOFRAN) 4 mg INTRAVENOUS PRN isosorbide mononitrate ER (IMDUR) tab(s) 90 mg 90 mg ORAL DAILY atenolol 50 mg tab(s) (TENORMIN) 50 mg ORAL DAILY DATA: Diagnostic tests reviewed for today's visit: Most recent labs and imaging results. Medication and Non-Pharmacologic VTE Prophylaxis/Anticoagulants Anticoagulant AND Antiplatelet Medications (From admission, onward) Start Dose Route Frequency Last Action Ordered Stop 04/09/24 0900 clopidogrel 75 mg tab(s) (PLAVIX) 75 mg ORAL DAILY Given, 04/10 82904/08/24 1554 -- 04/09/24 0900 aspirin 81 mg chewable tab(s) 81 mg ORAL DAILY Given, 04/10 82904/08/24 1554 -- 04/09/24 0800 enoxaparin 40 mg injection (LOVENOX) (Medical Risk Categories) 40 mg SUBCUTANEOUS EVERY 24 HOURS Given, 04/10 82904/08/24 1554 -- VTE Prophylaxis: VTE prophylaxis appropriate ASSESSMENT AND PLAN HISTORY Chloe Wilcox is an 73 year old male with pmhx of: CAD -2011 redo CABG (SV-LAD/OM, SV-PDA), -2019- s/p PCI to LM-Cx -01/26/2021; 3rd redo sternotomy, homograft removal, AVR/Root replacement (Konect 25), CABGx3 (Lt. 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 Hastings's recently seen virtually in [facility] on 04/01/2024 by JOHN for significant progressive angina very similar to his prior angina. He was schedule for elective cardiac cath on 04/08/[address] Hastings. Patient underwent cardiac cath and found that all his prior surgical grafts are occluded (SVG > mid LAD, Svg > OM1, SVG > OM2 and left radial to rPDA) with severe triple vessel rosebud CAD. Attempted to engage the LM with a 6F XB 3.5 guide and the patient developed chest pain and anterior ST depressions. The cath was subsequently disengaged from the LM and the patient's chest pain resolved. Patient directly admitted forCoronary CTA to further interrogate/ confirm graft failure, anti-anginal medication titration and consideration for high risk PCI to LAD, DCB to the LCX and possible STITCHDOWNS TOE FORMER intervention to the RCA vs. Repeat CABG. HOSPITAL COURSE: Optimizing antianginals and GDMT, High risk PCI +/- impella with Dr. Pennington vs redo CABG with Dr. Eden. Coronary CTA completed one aorto-coronary graft (to PDA) appears patent, all others occluded from their origins. [place] coronary arteries with diffuse severe atherosclerotic changes and stenoses (>75%). Severe obstructive (more content not included)...[facility]02-19-2025 NoteHNO ID: [id number] Author: MAGDIEL GARCIA RT(Ying) Service: Radiology Author Type: Technologist Type: Progress Notes Filed: 04/09/2024 14:20 Note Text: Radiology Service Progress Note PATIENT NAME: Chloe Wilcox DATE OF SERVICE: April 09, 2024 TIME: 2:19 PM PATIENT IDENTITY VERIFICATION COMPLETED USING TWO (2) IDENTIFIERS: Name and Date of confirmed by patient verbally. FALL SCREENING: Has the patient had 2 falls in the last year or 1 fall with injury or currently using an Ambulatory Assistive Device (Walker, Cane, Wheelchair, Crutches, etc.)? Inpatient: Screened on floor PATIENT GENDER DATA: Assigned male at PATIENT RELEVANT IMPLANT DATA REVIEWED: Yes PATIENT PRESENTS WITH AN IMPLANTABLE OR ATTACHED BOBBIN MARKER: No RADIOLOGY DEPARTMENT: CT; Exam(s) Completed: CTA Cardiac PERIPHERAL IV DATA: Inpatient: see LDA documentation SIGNED BY: RT rAnel(R) April 09, 2024 2:19 [facility]02-19-2025 NoteHNO ID: [id number] Author: KAVITHA BINGHAM APRN.CNP Service: Cardiovascular Medicine Author Type: Nurse Practitioner Type: Progress Notes Filed: 04/09/2024 14:40 Note Text: [facility] PROGRESS NOTE (Template ID [id number]) SERVICE DATE: 04/09/2024 SERVICE TIME: 11:15 PRIMARY SERVICE: Intervention, Hvi Card HOSPITAL DAY: #1 INTERVAL HISTORY Coronary CTA completed today and pending PCI vs CABG. Case being reviewed by both Dr. Pennington and Dr. Eden for both percutaneous and surgical options. HR goal 60, lopressor changed to Atenolol Titrating imdur as tolerated PHYSICAL EXAM BP 90/54 Pulse 60 Temp 37.2 ?C (99 ?F) (Oral) Resp 18 Ht 162.6 cm (5' 4) Wt 76.5 kg (168 lb 10.4 oz) SpO2 95% BMI 28.95 kg/m? Intake/Output Summary (Last 24 hours) at 04/09/2024 1419 Last data filed at 04/09/2024 0915 Gross per 24 hour Intake -- Output 575 ml Net -575 ml General Appearance: No acute distress HEENT: EOM's intact Lungs: Clear and Respiratory effort: normal Heart: Regular rate AND rhythm, No heaves, No lifts, No thrills, No rubs, and S1, S2 normal Abdomen: Soft, Non-tender, and Bowel sounds present Skin: Warm and No rash on chest, arms or legs Musculoskeletal: No deformities Neurologic/Psychiatric: Oriented to time, place AND person ACCESS SITE ASSESSMENT: Arterial Access SITES: Groin - right; Clean, dry and intact Motor Affected Extremity: muscle strength 5/5 both upper and lower extremities Sensory Examination: Neuro/Sensation is intact throughout Pulses/Signals: Dorsalis Pedis Right: Palpable +2 - Left: Palpable +2 MEDICATIONS Current Facility-Administered Medications Medication Dose Route Frequency clopidogrel 75 mg tab(s) (PLAVIX) 75 mg ORAL DAILY aspirin 81 mg chewable tab(s) 81 mg ORAL DAILY amLODIPine 2.5 mg tab(s) (NORVASC) 2.5 mg ORAL DAILY atorvastatin 80 mg tab(s) (LIPITOR) 80 mg ORAL AT BEDTIME isosorbide mononitrate ER 60 mg tab(s) (IMDUR) 60 mg ORAL DAILY albuterol 2.5 mg /3 mL (0.083 %) 2.5 mg (PROVENTIL) 2.5 mg INHALATION q 6 H PRN NaCl 0.9% iv flush bag 20 mL INTRAVENOUS PRN acetaminophen 1,000 mg tab(s) (TYLENOL) 1,000 mg ORAL q 8 H PRN melatonin 1 mg tab(s) 1 mg ORAL DAILY (8 PM) polyethylene glycol 3350 17 g packet 17 g ORAL DAILY enoxaparin 40 mg injection (LOVENOX) 40 mg SUBCUTANEOUS q 24 HR iv contrast (radiology procedure) INTRAVENOUS DIRECTED PRN ondansetron (PF) 4 mg injection (ZOFRAN) 4 mg INTRAVENOUS PRN atenolol (TENORMIN) tab(s) 75 mg 75 mg ORAL DAILY DATA: Diagnostic tests reviewed for today's visit: Most recent labs and imaging results. Medication and Non-Pharmacologic VTE Prophylaxis/Anticoagulants Anticoagulant AND Antiplatelet Medications (From admission, onward) Start Dose Route Frequency Last Action Ordered Stop 04/09/24 09 clopidogrel 75 mg tab(s) (PLAVIX) 75 mg ORAL DAILY Given, 04/09 82504/08/24 1554 -- 04/09/24 0900 aspirin 81 mg chewable tab(s) 81 mg ORAL DAILY Given, 04/09 82604/08/24 1554 -- 04/09/24 0800 enoxaparin 40 mg injection (LOVENOX) (Medical Risk Categories) 40 mg SUBCUTANEOUS EVERY 24 HOURS Given, 04/09 82604/08/24 1554 -- VTE Prophylaxis: VTE prophylaxis appropriate ASSESSMENT AND PLAN HISTORY Chloe Wilcox is an 73 year old male with pmhx of: CAD -2010 redo CABG (SV-LAD/OM, SV-PDA), -2019- s/p PCI to -Cx -01/26/2021; 3rd redo sternotomy, homograft removal, AVR/Root replacement (Konect 25), CABGx3 (Lt. 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 Hastings's recently seen virtually in [facility] on 04/01/2024 by JOHN for significant progressive angina very similar to his prior angina. He was schedule for elective cardiac cath on 04/08/[address] Hastings. Patient underwent cardiac cath and found that all his prior surgical grafts are occluded (SVG > mid LAD, Svg > OM1, SVG > OM2 and left radial to rPDA) with severe triple vessel rosebud CAD. Attempted to engage the LM with a 6F XB 3.5 guide and the patient developed chest pain and anterior ST depressions. The cath was subsequently disengaged from the LM and the patient's chest pain resolved. Patient directly admitted forCoronary CTA to further interrogate/ confirm graft failure, anti-anginal medication titration and consideration for high risk PCI to LAD, DCB to the LCX and possible STITCHDOWNS TOE FORMER intervention to the RCA vs. Repeat CABG. HOSPITAL COURSE: Optimizing antianginals and GDMT, High risk PCI +/- impella with Dr. Pennington vs redo CABG with Dr. Eden PLAN AND RECOMMENDATIONS: Aspirin 81 mg daily DAPT Plavix 75mg daily AC no Beta Jana: Atenolol 75 mg daily ACEI/ARB/AR (more content not included)...[facility]02-19-2025 NoteHNO ID: [id number] Author: JUSTIN PEREZ RN Service: Care Management Author Type: Registered Nurse Type: Care Mgt Initial Assessment Filed: 04/10/2024 11:50 Note Text: CARE MANAGEMENT: ASSESSMENT AND DISCHARGE PLAN SERVICE DATE: April 09, 2024 SERVICE TIME: 12:41 PM PCP: Gatito Leon MD Primary Contact: Extended Emergency Contact Information Primary Emergency Contact: Mandie Wilcox Mobile Relation: Spouse Admission Status: Inpatient Insurance Provider: MEDICARE A AND B Discharge Planning requested by: Per Department Practice Potential Transition Plans Home, To Be Determined Advance Directives Current Advance Directive: Health Care Power of Tire Molder In Chart: No Aquarium Specialist Attempted to Assist with AD Completion: Yes Action: Education Provided Current Living Arrangements and Support Lives with: Spouse/significant other Type of Residence: Private Residence (House) Does the patient have to climb stairs at home?: stairs outside the home Support: Family members, Friends/neighbors, Spouse/significant other, Children How do you manage to accomplish the following: Independent: Ambulation, Transportation to appointments/community, Bathe/Shower, Dress, Meals/Meal Prep, Going to the bathroom, Medication Management Current Services/Equipment Current Post-Acute Service(s): None Discharge Planning Patient Goal(s): General wellness, Be able to go home Morley of Choice Explained: [place] of Choice Given: No Reason Not Given: No placements necessary Are you interested in bedside delivery of your medications? Yes Discharge Planning Participant(s): Patient Patient/Family Comments: Caregiver Assessment: Caregiver is ready, willing and able to meet the patient's needs as recommended by the inter-professional team: Yes Name of Caregiver: Spouse Transport at Discharge: Transportation Arrangements: Car Destination: Home Needs Prior to Discharge: Needs Prior to Discharge: To Be Determined Post-Acute Discharge Plan: Pt originally planned for 04/07 [facility] +/- PCI but unsuccessful, now being evaluated for high risk PCI vs CABG. 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 No skilled needs nor ambulatory devices. Lives with spouse in a ranch house. Family to provide transport when medically ready. CM to follow for discharge planning. SIGNATURE: Justin Perez RN PATIENT NAME: Chloe Wilcox DATE: April 09, 2024 TIME: 12:41 [facility]02-18-2025 NoteHNO ID: [id number] Author: MAXIME CARLIN MD Service: Cardiovascular Medicine Author Type: Physician Type: Plan of Care Filed: 04/08/2024 22:02 Note Text: I was reached out by nurse for right groin bleed that the patient was having. He had left heart cath earlier today for workup of CABG. He came back around 3 PM to the floors. Evaluated at bedside, he had 1 pressure dressing that was completely saturated with blood with moderate amount of bleeding. On examination it seemed that pressure dressing were slightly higher than the incision site. Pulses palpable in right lower extremity proximally as well as distally. No new onset of back pain or any color change on the back seen, no tenderness on palpation either. Asked the nurse to change the pressure dressing and angulated slightly lower to be able to apply the pressure right at the incision site appropriately. In addition to that, asked the nurse to hold the manual pressure at least for 20 minutes as well. Asked the patient to stay in bed with bedrest overnight. Hopefully these measures should control the bleeding. Monitor closely.[facility]02-17-2025 NoteHNO ID: [id number] Author: PENNIE BARBA MD Service: Cardiovascular Medicine Author Type: Fellow Type: Plan of Care Filed: 04/07/2024 15:34 Note Text: Cardiac Catheterization Laboratory Pre-Catheterization Procedure Note Pre-Operative Assessment Patient Name: Chloe Wilcox : 1950 AGE: [id number] year old Planned Procedure: LHC +/- PCI Indication: angina Brief HPI: 73 year old man with a PMH of CAD (CABG in 2010 (SV-LAD/OM, SV-PDA), PCI in 2019 LM-LCX, 2020 redo CABG (Lt. Radial - PDA, SV-OM1, SV-OM2), valvular heart disease (1995 homograft root replacement, 2018 TAVR, 2020 homograft removal TVAR explant AVR and root replacement), HLD, first degree AV block with chest pain on exertion. Staff: Dr. Hastings Cr: 1.02 Hgb: 14.3 Plt: 224 Coags: N/A Wt: 80 kg EF: 68% NT Pro BNP Date Value Ref Range Status 04/19/2018 114 <125 pg/mL Final EKG 05/05/22 TTE Recent Results (from the past 4464 hours) ECHO Collection Time: 04/04/24 2:53 PM Impression CONCLUSIONS: - Exam indication: Evaluation of prosthetic valve with change in clinical status - The left ventricle is normal in size. There is mild concentric left ventricular hypertrophy. Left ventricular systolic function is normal. EF = 68 ? 5% (2D biplane) Grade I left ventricular diastolic dysfunction. - The right ventricle is normal in size. Right ventricular systolic function is normal. 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 There is no aortic valve regurgitation. The peak gradient is 14 mmHg, the mean gradient is 6 mmHg and the dimensionless valve index is 0.65. - Exam was compared with the prior echocardiographic exam performed on 08/06/23 (Jayne). Prior AV pk/mn gradients measured at 8/3 mmHg. Gradients are measuring slightly higher today. * * * Final * * * Stress Test - N/A Prior [facility] Coronary Anatomy: Right Dominant Injection Site(s): Coronary Artery, Left Main Coronary Artery, Right Coronary Artery, Right Common Femoral Artery, Femoral Artery, Mammary Artery, Left Internal Mammary Artery - In Situ and Right Internal Mammary Artery - In Situ LMT: _ The LMT has mild diffuse disease. Additional Comment: Patent LM-LCx stent with moderate ISR. LAD: _ The proximal LAD is narrowed 100 % - STITCHDOWNS TOE FORMER. Additional Comment: STITCHDOWNS TOE FORMER of prox LAD with distal territory supplied by patent SVG-LAD portion of prior Y-graft. LCX: _ The 1st obtuse marginal circumflex is narrowed 60 % - focal disease. _ The mid circumflex is narrowed 80 % - focal disease. Additional Comment: Normal caliber vessel with patent prox LCx stent w/ mild ISR. There is focal hazy Hernandez 1,1,1 lesion at the bifurcation of medium-sized OM1 and mid LCx with 80-90% stenosis, which is hemodynamically significant with dPR of 0.75 (iFR equivalent) measured in the inferior branch of OM1 with step up at bifurcation lesion. RAMUS: _ The Ramus is Absent. RCA: _ The proximal RCA is narrowed 95 % - focal disease. _ The distal RCA is narrowed 50 % - focal disease. Additional Comment: Right dominant system. Normal caliber vessel that gives rise to PDA AND PLV branches. There is a long tubular segment of 80-90% stenosis in the prox RCA with moderate diffuse disease distally. GRAFTS: _ Saphenous Vein Graft Y Graft to the Mid LAD . Additional Comments - Patent SVG-LAD limb of Y graft with patent stents supplying mid to distal LAD. _ Saphenous Vein Graft Y Graft to the OM-1 First Obtuse Marginal Branch (100 % stenosis). Additional Comments - occluded SVG-OM limb of Y graft. _ Saphenous Vein Graft End to Side to the Right Posterior Descending Artery (100 % stenosis). Additional Comments - known occluded SVG-rPDA graft from prior [facility] 01/19/20. + + HEMODYNAMICS + + + + IMPRESSION/PLAN + + Impression: -Right dominant system -Severe rosebud obstructive multivessel CAD -STITCHDOWNS TOE FORMER of prox LAD with patent SVG-LAD limb of Y graft with patent stent -Hernandez 1,1,1 bifurcation lesion involving OM1 w/ 60% hazy lesion and mid LCx with 80-90% stenosis, which is hemodynamically significant with dPR of 0.75 (iFR equivalent) confirmed with step up in dPR on pullback; occluded SVG-OM limb of Y graft -Severe long tubular segment of 95% stenosis of prox RCA AND 50% distal RCA stenosis w/ known occluded SVG-rPDA graft from prior [facility] 12/2019 -patent in-situ WATKINS AND SLAVA on aniography Recommended Treatment: CABG and Medical Therapy. Plan: -Dr. Hastings will discuss case with CTS for CABG evaluation with consideration for bypass grafts to OM1 AND OM2 and rPDA and possible need for simultaneous redo SAVR vs. PCI to Cx-OM +/- prox RCA -Continue medical therapy AND lifestyle modifications. CTA chest 02/01/21 IMPRESSION: 1. The patient has undergone homograft removal, AVR/Root rep (more content not included)...[facility]02-17-2025 Telephone encounter Note* Telephone Encounter - Modesta Paredes RN - 04/07/2024 12:34 PM EST CARDIOVASCULAR LAB INSTRUCTIONS: Readiness to Learn: Cognitive Ability: Alert and oriented Motivation To Learn: Interested Family/Significant Other Support: Unable to assess - Family not present Instruction Provided To: Patient Patient Learns Best By: Verbal Instruction Factors Affecting Learning: None Physical Limitations Affecting Learning: None Learning Response: Procedure: Left Heart Diagnostic Pre procedure education topics: Arrival time/NPO Status/Medications/Travel Instructions/Restrictions Patient/Family Response Evaluation: Verbalizes understanding Follow Up Plan and Medication: As directed by physician Instruction/Supplemental Material Given: Cardiac catheterization instructions, procedure information, hospital information, hotel information. Instructed By Modesta Paredes RN, RN. In Department of CARDIOLOGY. [facility]02-17-2025 Miscellaneous Notes* Telephone Encounter - Modesta Paredes RN - 04/07/2024 12:34 PM EST CARDIOVASCULAR LAB INSTRUCTIONS: Readiness to Learn: Cognitive Ability: Alert and oriented Motivation To Learn: Interested Family/Significant Other Support: Unable to assess - Family not present Instruction Provided To: Patient Patient Learns Best By: Verbal Instruction Factors Affecting Learning: None Physical Limitations Affecting Learning: None Learning Response: Procedure: Left Heart Diagnostic Pre procedure education topics: Arrival time/NPO Status/Medications/Travel Instructions/Restrictions Patient/Family Response Evaluation: Verbalizes understanding Follow Up Plan and Medication: As directed by physician Instruction/Supplemental Material Given: Cardiac catheterization instructions, procedure information, hospital information, hotel information. Instructed By Modesta Paredes RN, RN. In Department of CARDIOLOGY. [facility] History of Present illness Narrative* Yoan Adam APRN.SENDY - 04/01/2024 9:45 AM EST Heart, Vascular & Thoracic [place] Department of Cardiovascular Medicine VIRTUAL VIDEO VISIT ESTABLISHED OUTPATIENT VISIT SERVICE DATE: 04/01/2024 Patient: Chloe Wilcox SERVICE TIME: 10:22 AM : 1950 This is a virtual video visit. It required patient-provider interaction for the medical decision making as documented below. Chloe Wilcox has consented to this video encounter. I have communicated my name and active licensure. The patient's identity and physical location wereverified at the time of this visit. Either the patient or their legal cash posting representative has been informed of the risks and benefits of -- and alternatives to -- treatment through a remote evaluation andconsents to proceed with the evaluation remotely. Chloe Wilcox is a 73 year old male seen for follow up cards visit Primary Dialysis Chief Equipment Technician: Dr. Hastings Chief Complaint: Patient here for cardiac follow up evaluation History of Present Illness: Patient is a 73 year old male who presents for follow up visit today. 08/10/2023- Last [facility] Dr. Hastings. VV- Mild SOB, continue med tx with follow up in 1 year. Since last vist the patient has done over all okay until about 1 week ago He walks/jogs up to 2-4 miles daily with no issues 1 week ago he started with walking and started having chest tightness mid chest to the shoulders, with a feeling in his throat. Resolved with rest. No overt breathing issues. On Sunday, after flying he had symptoms with walking in the airport. Resolved with slowing down or stopping. He does have the Cardia and says normal rhythm. Of note it is similar chest pain as prior angina Of note he is getting PT for a rotator cuff tear and did have a prednisone shot Denies: shortness of breath, dyspnea on exertion, orthopnea, PND, palpitations, lightheadedness, syncope, claudication, leg swelling, cough, and wheezing PAST MEDICAL HISTORY Diagnosis Date Aortic valve disorders Aortic valve disorders CAD (coronary artery disease) Hx of CABG Hyperlipidemia Presence of stent in coronary artery TIA (transient ischemic attack) Urinary retention PAST SURGICAL HISTORY Procedure Laterality Date COLSC FLX W/RMVL OF TUMOR POLYP LESION SNARE TQ 09/01/05 CORONARY ARTERY BYP W/VEIN & ARTERY GRAFT 3 VEIN 2010 CABG, three grafts HEMORRHOIDECTOMY PAST SURGICAL HISTORY OF 1967 excision of chest lump PAST SURGICAL HISTORY OF 12/03/1995 Minimally invasive incision; aortic valve replacement with a PAST SURGICAL HISTORY OF 04/23/2018 TAVR FAMILY HISTORY Problem Relation Age of Onset Cancer Father Colon Cancer Father from cancer other (Myocardial infarction) Mother 70 other (Myocardial infarction) Sister 70 CABG other (Myocardial infarction) Brother 62 CABG age 55, coronary stents other (Myocardial infarction) Maternal Grandmother 92 other (Brain aneurysm) Paternal Grandmother 70 other (CABG) Brother other (coronary stents) Brother other (coronary stents) Brother carotid artery disease Social History Tobacco Use Smoking status: Never Smokeless tobacco: Never Substance Use Topics Alcohol use: Yes Comment: occ Drug use: No ALLERGIES Allergen Reactions Ragweed Pollen Itching, Other: See Comments CURRENT MEDICATIONS evolocumab 140 mg/mL subcutaneous pen injector (REPATHA ESMEICK)^Inject 140 mg subcutaneously every 2 weeks.^Disp: 2 mL^Rfl: 3 clopidogrel (PLAVIX) 75 mg tablet^Take 1 tablet by mouth once daily.^Disp: 90 tablet^Rfl: 3 atorvastatin (LIPITOR) 80 mg tablet^Take 1 tablet by mouth daily at bedtime.^Disp: 90 tablet^Rfl: 3 amLODIPine (NORVASC) 2.5 mg tablet^Take 1 tablet by mouth once daily.^Disp: 90 tablet^Rfl: 3 Ipratropium [place] (ATROVENT) 21 mcg (0.03 %) nasal spray^^Disp: ^Rfl: Amoxicillin 500 mg tablet^Take 4 tablets by mouth as needed. Prior to dental procedures^Disp: ^Rfl: acetaminophen (TYLENOL) 325 mg tablet^2 tablets by ORAL/FEEDING TUBE route every 4 hours as needed for pain.^Disp: 50 tablet^Rfl: 0 cetirizine (ZYRTEC) 10 mg tablet^Take 10 mg by mouth as needed.^Disp: ^Rfl: albuterol HFA (VENTOLIN HFA) 90 mcg/actuation inhaler^Inhale 2 Puffs as instructed every 4 hours asneeded for Wheezing/Shortness of Breath.^Disp: 1 Inhaler^Rfl: 0 Multivitamin capsule^Take 1 capsule by mouth once daily. ^Disp: ^Rfl: REVIEW OF SYSTEMS: GENERAL: Negative for: Weight loss or gain, Fever or Chills, Weakness and Sleep difficulties. HEENT: Negative for: Headache, Impaired Vision, Glasses, Hearing Impairment, Ringing in Ears, Nosebleeds, Poor dental care, Bleeding Gums, Dentures NECK: Negative for: Swelling, Pain, Stiffness RESPIRATORY: Negative for: Cough, Blood in Sputum, Shortness of breath, Wheezing, Apnea GASTROINTESTINAL: Negative for: Trouble swallowing, Heartburn, Change in bowel habits, Blood in stool, Dark black stools MUSCULOSKELETAL: Negative for: Muscle or joint pain, Stiffness , Joint swelling NEUROLOGIC/PSYCHIATRIC: Negative for: Weakness, Paralysis, Numbness, Tingling, Tremor, Nervousness,Depressed mood, Memory loss SKIN: Negative for: Rashes, Itching HEMATOLOGICAL/LYMPHATIC: Negative for: Easy bruising , Easy bleeding ENDOCRINE: Negative for: Heat or cold intolerance, Excessive sweating, Frequent urination, Frequentthirst PHYSICAL EXAMINATION: VIDEO EXAM: (if completed, performed via video enabled technology) GENERAL: alert and appropriate, in no distress, well-hydrated, well nourished, and happy, smiling, interactive PATIENT ENTERED QUESTIONNAIRE SCORES HISTORY Chloe Wilcox is an 73 year old male with pmhx of: CAD 2010 redo CABG (SV-LAD/OM, SV-PDA), 2019- s/p PCI to LM-Cx 01/26/2021; 3rd redo sternotomy, homograft removal, AVR/Root replacement (Konect 25), CABGx3 (Lt. 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 Hastings. VV- Mild SOB, continue med tx with follow up in 1 year. Since last vist the patient has done over all okay until about 1 week ago He walks/jogs up to 2-4 miles daily with no issues 1 week ago he started with walking and started having chest tightness mid chest to the shoulders, with a feeling in his throat. Resolved with rest. No overt breathing issues. On Sunday, after flying he had symptoms with walking in the airport. Resolved with slowing down or stopping. He does have the Cardia and says normal rhythm. Of note it is similar chest pain as prior angina Of note he is getting PT for a rotator cuff tear and did have a prednisone shot Denies: shortness of breath, dyspnea on exertion, orthopnea, PND, palpitations, lightheadedness, syncope, claudication, leg swelling, cough, and wheezing Cholesterol, Total Date Value Ref Range Status 09/06/2023 101 <200 mg/dL Final Comment: <200 mg/dL, Desirable 200-239 mg/dL, Borderline high >239 mg/dL, High HDL Cholesterol Date Value Ref Range Status 09/06/2023 41 >39 mg/dL Final Comment: 40-59 mg/dL, Acceptable >59 mg/dL, High: Negative risk factor for coronary heart disease <40 mg/dL, Low: Positive risk factor for coronary heart disease LDL Cholesterol Date Value Ref Range Status 09/06/2023 42 <100 mg/dL Final Comment: <100 mg/dL, Optimal 100-129 mg/dL, Near optimal/above optimal 130-159 mg/dL, Borderline high 160-189 mg/dL, High >189 mg/dL, Very high Secondary prevention optimal LDL Cholesterol levels are recommended to be < 70 mg/dL Triglyceride Date Value Ref Range Status 09/06/2023 89 <150 mg/dL Final Comment: <150 mg/dL, Normal 150-199 mg/dL, Borderline high 200-499 mg/dL, High >499 mg/dL, Very high PLAN AND RECOMMENDATIONS: Aspirin no DAPT Plavix 75mg daily AC no Beta Jana: no ACEI/ARB/ARNIno SGLT2 inhibitor no Diuretic: no Aldosterone antagonist: no Statin Lipitor 80mg daily and repatha Amlodipine 2.5mg daily Start Imdur 30mg daily okay to take tylenol if needed for side effects. He believes he had CHAUDHARI in the past but with trail Device therapy: no Aggressive risk factor modification as appropriate. -- BP Goal < 130/80 with nonpharmacologic and medical therapy -- LDL goal 50% reduction AND level < 55-70 mg/dL using max tolerated statin +/- adjuvant therapy -- HbA1C < 7% -- Healthy diet and exercise +/- weight loss if appropriate. - Smoking and alcohol abstinence/cessation, if applicable Follow up/Disposition: Start Imdur 30mg daily SL NTG as needed script sent to the pharmacy Fasting labs and EKG Echo to assess valve Cardiac cath with Dr. Hastings on 04/08 With cards per above Education/Counseling: We have discussed the following pharmacological measures during this visit: Reviewed all medications. Patient is able to get medications with out issues Reviewed any possible side effects of medications. Take ALL medications as prescribed. We discussed the following non-pharmacological measures during this visit: Diet: Eat a low-salt (sodium) diet Read food labels for sodium content. Mediterranean Diet Weight: Check for swelling in your feet, ankles, legs, and stomach. Weigh yourself each morning before breakfast. Compare If your weight goes up or down 4lbs from your dry weight, call your professional healthcare representative Exercise: Be active and exercise every day. Smoking and alcohol abstinence/cessation, if applicable . Please Visit [email or web address] I personally spent >40 minutes in total time involved in the management and care of this patient. Yoan Adam APRN.CNP April 01, 2024 8:13 AM documented in this encounterPaulding [facility]02-[facility]25 NoteHNO ID: [id number] Author: YOAN ADAM APRN.CNP Service: ? Author Type: Nurse Practitioner Type: Progress Notes Filed: 04/01/2024 10:31 Note Text: Heart, Vascular [facility] Thor[facility] [place] Department of Cardiovascular Medicine VIRTUAL VIDEO VISIT ESTABLISHED OUTPATIENT VISIT SERVICE DATE: 04/01/2024 Patient: Chloe Wilcox SERVICE TIME: 10:22 AM : 1950 This is a virtual video visit. It required patient-provider interaction for the medical decision making as documented below. Chloe Wilcox has consented to this video encounter. I have communicated my name and active licensure. The patient's identity and physical location were verified at the time of this visit. Either the patient or their legal cash posting representative has been informed of the risks and benefits of -- and alternatives to -- treatment through a remote evaluation and consents to proceed with the evaluation remotely. Chloe Wilcox is a 73 year old male seen for follow up cards visit Primary Dialysis Chief Equipment Technician: Dr. Hastings Chief Complaint: Patient here for cardiac follow up evaluation History of Present Illness: Patient is a 73 year old male who presents for follow up visit today. 08/10/2023- Last [facility] Dr. Hastings. VV- Mild SOB, continue med tx with follow up in 1 year. Since last vist the patient has done over all okay until about 1 week ago He walks/jogs up to 2-4 miles daily with no issues 1 week ago he started with walking and started having chest tightness mid chest to the shoulders, with a feeling in his throat. Resolved with rest. No overt breathing issues. On Sunday, after flying he had symptoms with walking in the airport. Resolved with slowing down or stopping. He does have the Cardia and says normal rhythm. Of note it is similar chest pain as prior angina Of note he is getting PT for a rotator cuff tear and did have a prednisone shot Denies: shortness of breath, dyspnea on exertion, orthopnea, PND, palpitations, lightheadedness, syncope, claudication, leg swelling, cough, and wheezing PAST MEDICAL HISTORY Diagnosis Date Aortic valve disorders Aortic valve disorders CAD (coronary artery disease) Hx of CABG Hyperlipidemia Presence of stent in coronary artery TIA (transient ischemic attack) Urinary retention PAST SURGICAL HISTORY Procedure Laterality Date COLSC FLX W/RMVL OF TUMOR POLYP LESION SNARE TQ 09/01/05 CORONARY ARTERY BYP W/VEIN AND ARTERY GRAFT 3 VEIN 2010 CABG, three grafts HEMORRHOIDECTOMY PAST SURGICAL HISTORY OF 1967 excision of chest lump PAST SURGICAL HISTORY OF 12/03/1995 Minimally invasive incision; aortic valve replacement with a PAST SURGICAL HISTORY OF 04/23/2018 TAVR FAMILY HISTORY Problem Relation Age of Onset Cancer Father Colon Cancer Father from cancer other (Myocardial infarction) Mother 70 other (Myocardial infarction) Sister 70 CABG other (Myocardial infarction) Brother 62 CABG age 55, coronary stents other (Myocardial infarction) Maternal Grandmother 92 other (Brain aneurysm) Paternal Grandmother 70 other (CABG) Brother other (coronary stents) Brother other (coronary stents) Brother carotid artery disease Social History Tobacco Use Smoking status: Never Smokeless tobacco: Never Substance Use Topics Alcohol use: Yes Comment: occ Drug use: No ALLERGIES Allergen Reactions Ragweed Pollen Itching, Other: See Comments CURRENT MEDICATIONS evolocumab 140 mg/mL subcutaneous pen injector (TraklightATHAdaptly)Inject 140 mg subcutaneously every 2 weeks.Disp: 2 mLRfl: 3 clopidogrel (PLAVIX) 75 mg tabletTake 1 tablet by mouth once daily.Disp: 90 tabletRfl: 3 atorvastatin (LIPITOR) 80 mg tabletTake 1 tablet by mouth daily at bedtime.Disp: 90 tabletRfl: 3 amLODIPine (NORVASC) 2.5 mg tabletTake 1 tablet by mouth once daily.Disp: 90 tabletRfl: 3 Ipratropium [place] (ATROVENT) 21 mcg (0.03 %) nasal sprayDisp: Rfl: Amoxicillin 500 mg tabletTake 4 tablets by mouth as needed. Prior to dental proceduresDisp: Rfl: acetaminophen (TYLENOL) 325 mg tablet2 tablets by ORAL/FEEDING TUBE route every 4 hours as needed for pain.Disp: 50 tabletRfl: 0 cetirizine (ZYRTEC) 10 mg tabletTake 10 mg by mouth as needed.Disp: Rfl: albuterol HFA (VENTOLIN HFA) 90 mcg/actuation inhalerInhale 2 Puffs as instructed every 4 hours as needed for Wheezing/Shortness of Breath.Disp: 1 InhalerRfl: 0 Multivitamin capsuleTake 1 capsule by mouth once daily. Disp: Rfl: REVIEW OF SYSTEMS: GENERAL: Negative for: Weight loss or gain, Fever or Chills, Weakness and Sleep difficulties. HEENT: Negative for: Headache, Impaired Vision, Glasses, Hearing Impairment, Ringing in Ears, Nosebleeds, Poor dental care, Bleeding Gums, Dentures NECK: Negative for: Swelling, Pain, Stiffness RESPIRATORY: Negative for: Cough, Blood in Sputum, Shortness of breath, Wheezing, Apnea GASTROINTESTINAL: Negative for: Trouble swallowing (more content not included)...[facility]10-28-2024 Telephone encounter Note* Telephone Encounter - Erick Jones - 12/17/2023 2:42 PM EDT Call from patient requesting refill. Requested Prescriptions Pending Prescriptions Disp Refills evolocumab 140 mg/mL subcutaneous pen injector (REPATHA SURECLICK) 2 mL 3 Sig: Inject 140 mg subcutaneously every 2 weeks. Patient last seen 08/10/23 Erick Jones [facility]10-28-2024 Miscellaneous Notes* Telephone Encounter - Erick Jones - 12/17/2023 2:42 PM EDT Call from patient requesting refill. Requested Prescriptions Pending Prescriptions Disp Refills evolocumab 140 mg/mL subcutaneous pen injector (REPATHA SURECLICK) 2 mL 3 Sig: Inject 140 mg subcutaneously every 2 weeks. Patient last seen 08/10/23 Erick Jones documented [facility]Paul[facility]07-[facility] Telephone encounter Note * Telephone Encounter - Bc Maradiaga APRN.CNP - 08/31/2023 4:59 PM EDT New prescription sent. Bc Maradiaga APRN.CNP [facility] Work Phone: 1(724) 145-103407-12-2024 Miscellaneous Notes* Telephone Encounter - Bc Maradiaga APRN.CNP - 08/31/2023 4:59 PM EDT New prescription sent. Bc Maradiaga APRN.CNP * Telephone Encounter - Mouna Keane - 08/31/2023 3:43 PM EDT [facility] Repatha formulation from pushtronex to sureclick as pushtronex has been discontinued documented in this encounterPaulding [facility]07-12-[facility] Telephone encounter Note * Telephone Encounter - Mouna Keane - 08/31/2023 3:43 PM EDT [facility] Repatha formulation from pushtronex to sureclick as pushtronex has been discontinued [facility]06-25-2024 Telephone encounter Note* Telephone Encounter - Bc Maradiaga APRN.CNP - 08/14/2023 11:54 AM EDT Returned phone call, explained he can take for a short period of time, but should stop the medication and notify his PCP if he has any blood in his stool or urine. Bc Maradiaga APRN.CNP [facility] Work Phone: 1(990) 930-654206-25-2024 Miscellaneous Notes* Telephone Encounter - Bc Maradiaga APRN.CNP - 08/14/2023 11:54 AM EDT Returned phone call, explained he can take for a short period of time, but should stop the medication and notify his PCP if he has any blood in his stool or urine. Bc Maradiaga APRN.SENDY * Telephone Encounter - Mouna Keane - 08/13/2023 4:54 PM EDT Call from patient Went to PCP for some back pain and they prescribed meloxitam 15mg once daily for up to 30 days. Pt states that PCP said it would be okay since it's short term but after reading the warning label on the bottle he wanted to verify with cardiology. Call back number [phone] - OK to leave VM documented in this encounterPaulding [facility] Hospital06-24-2024 Telephone encounter Note * Telephone Encounter - Mouna Keane - 08/13/2023 4:54 PM EDT Call from patient Went to PCP for some back pain and they prescribed meloxitam 15mg once daily for up to 30 days. Pt states that PCP said it would be okay since it's short term but after reading the warning label on the bottle he wanted to verify with cardiology. Call back number [phone] - OK to leave VM [facility]06-21-2024 History of Present illness Narrative* Kurtis Hastings MD - 08/10/2023 8:45 AM EDT Heart[facility] [place] Department of Cardiovascular Medicine VIRTUAL VIDEO VISIT ESTABLISHED OUTPATIENT VISIT SERVICE DATE: 08/10/2023 Patient: Chloe Wilcox SERVICE TIME: 8:29 AM : 1950 This is a virtual video visit. It required patient-provider interaction for the medical decision making as documented below. Chloe Wilcox has consented to this video encounter. I have communicated my name and active licensure. The patient's identity and physical location wereverified at the time of this visit. Either the patient or their legal cash posting representative has been informed of the risks and benefits of -- and alternatives to -- treatment through a remote evaluation andconsents to proceed with the evaluation remotely. Chloe Wilcox is a 72 year old male seen for CAD/VHD/Lipids CHIEF COMPLAINT 01/26/2021; 3rd redo sternotomy, homograft removal, AVR/Root replacement (Konect 25), CABGx3 (Lt. 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 He is playing baseball in the summer and finds himself on a little bit out of breath when he sprints between bases which is totally normal. He remains on Plavix, Repatha and high intensity statin therapy. Lab tests last 2022 show an LDL level of 26, triglycerides 76 and HDL 40. He has not had his lipidstested this year yet. Echo shows an LVEF of 63%. The right heart was normal in structure and function. The mitral and tricuspid valves were unremarkable. 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 PAST MEDICAL HISTORY Diagnosis Date Aortic valve disorders Aortic valve disorders CAD (coronary artery disease) Hx of CABG Hyperlipidemia Presence of stent in coronary artery TIA (transient ischemic attack) Urinary retention PAST SURGICAL HISTORY Procedure Laterality Date COLSC FLX W/RMVL OF TUMOR POLYP LESION SNARE TQ 09/01/05 CORONARY ARTERY BYP W/VEIN & ARTERY GRAFT 3 VEIN 2010 CABG, three grafts HEMORRHOIDECTOMY PAST SURGICAL HISTORY OF 1967 excision of chest lump PAST SURGICAL HISTORY OF 12/03/1995 Minimally invasive incision; aortic valve replacement with a PAST SURGICAL HISTORY OF 04/23/2018 TAVR FAMILY HISTORY Problem Relation Age of Onset Cancer Father Colon Cancer Father from cancer other (Myocardial infarction) Mother 70 other (Myocardial infarction) Sister 70 CABG other (Myocardial infarction) Brother 62 CABG age 55, coronary stents other (Myocardial infarction) Maternal Grandmother 92 other (Brain aneurysm) Paternal Grandmother 70 other (CABG) Brother other (coronary stents) Brother other (coronary stents) Brother carotid artery disease Social History Tobacco Use Smoking status: Never Smokeless tobacco: Never Substance Use Topics Alcohol use: Yes Comment: occ Drug use: No ALLERGIES Allergen Reactions Ragweed Pollen Itching, Other: See Comments CURRENT MEDICATIONS evolocumab (REPATHA PUSHTRONEX) 420 mg/3.5 mL wearable injector^Inject 3.5 mL subcutaneously once every month.^Disp: 3 Each^Rfl: 3 clopidogrel (PLAVIX) 75 mg tablet^Take 1 tablet by mouth once daily.^Disp: 90 tablet^Rfl: 3 atorvastatin (LIPITOR) 80 mg tablet^Take 1 tablet by mouth daily at bedtime.^Disp: 90 tablet^Rfl: 3 amLODIPine (NORVASC) 2.5 mg tablet^Take 1 tablet by mouth once daily.^Disp: 90 tablet^Rfl: 3 Ipratropium [place] (ATROVENT) 21 mcg (0.03 %) nasal spray^^Disp: ^Rfl: Amoxicillin 500 mg tablet^Take 4 tablets by mouth as needed. Prior to dental procedures^Disp: ^Rfl: acetaminophen (TYLENOL) 325 mg tablet^2 tablets by ORAL/FEEDING TUBE route every 4 hours as needed for pain.^Disp: 50 tablet^Rfl: 0 cetirizine (ZYRTEC) 10 mg tablet^Take 10 mg by mouth as needed.^Disp: ^Rfl: albuterol HFA (VENTOLIN HFA) 90 mcg/actuation inhaler^Inhale 2 Puffs as instructed every 4 hours asneeded for Wheezing/Shortness of Breath.^Disp: 1 Inhaler^Rfl: 0 Multivitamin capsule^Take 1 capsule by mouth once daily. ^Disp: ^Rfl: REVIEW OF SYSTEMS: GENERAL: Negative for: Weight loss or gain, Fever or Chills, Weakness and Sleep difficulties. HEENT: Negative for: Headache, Impaired Vision, Glasses, Hearing Impairment, Ringing in Ears, Nosebleeds, Poor dental care, Bleeding Gums, Dentures NECK: Negative for: Swelling, Pain, Stiffness RESPIRATORY: Negative for: Cough, Blood in Sputum, Shortness of breath, Wheezing, Apnea GASTROINTESTINAL: Negative for: Trouble swallowing, Heartburn, Change in bowel habits, Blood in stool, Dark black stools MUSCULOSKELETAL: Negative for: Muscle or joint pain, Stiffness , Joint swelling NEUROLOGIC/PSYCHIATRIC: Negative for: Weakness, Paralysis, Numbness, Tingling, Tremor, Nervousness,Depressed mood, Memory loss SKIN: Negative for: Rashes, Itching HEMATOLOGICAL/LYMPHATIC: Negative for: Easy bruising , Easy bleeding ENDOCRINE: Negative for: Heat or cold intolerance, Excessive sweating, Frequent urination, Frequentthirst PHYSICAL EXAMINATION: ASSESSMENT: Extremely good durable clinical and hemodynamic response. Tolerating his medications well. His numbers from a lipid perspective were at target last year. PLAN (Active Outpatient Problems): No change to his current medication regimen, he can have lipids tested locally and we can simply repeat the echo and lipid tests next year followed by phone visit. Kurtis Hastings MD, PhD, FRACP Clinical Staff, Senior Bi Architect cutting and printing machine operator Director, [facility], [facility] Department of Cardiovascular Medicine [facility] [place] [facility] Desk [place] [phone] Office This letter was dictated using a voice recognition program, please excuse any typos. documented in this encounterPaulding County Hospital06-21-2024 NoteHNO ID: [id number] Author: KURTIS HASTINGS MD Service: ? Author Type: Physician Type: Progress Notes Filed: 08/10/2023 08:30 Note Text: Heart, V[facility] [place] Department of Cardiovascular Medicine VIRTUAL VIDEO VISIT ESTABLISHED OUTPATIENT VISIT SERVICE DATE: 08/10/2023 Patient: Chloe Wilcox SERVICE TIME: 8:29 AM : 1950 This is a virtual video visit. It required patient-provider interaction for the medical decision making as documented below. Chloe Wilcox has consented to this video encounter. I have communicated my name and active licensure. The patient's identity and physical location were verified at the time of this visit. Either the patient or their legal cash posting representative has been informed of the risks and benefits of -- and alternatives to -- treatment through a remote evaluation and consents to proceed with the evaluation remotely. Chloe Wilcox is a 72 year old male seen for CAD/VHD/Lipids CHIEF COMPLAINT 01/26/2021; 3rd redo sternotomy, homograft removal, AVR/Root replacement (Konect 25), CABGx3 (Lt. 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 He is playing baseball in the summer and finds himself on a little bit out of breath when he sprints between bases which is totally normal. He remains on Plavix, Repatha and high intensity statin therapy. Lab tests last 2022 show an LDL level of 26, triglycerides 76 and HDL 40. He has not had his lipids tested this year yet. Echo shows an LVEF of 63%. The right heart was normal in structure and function. The mitral and tricuspid valves were unremarkable. 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 PAST MEDICAL HISTORY Diagnosis Date Aortic valve disorders Aortic valve disorders CAD (coronary artery disease) Hx of CABG Hyperlipidemia Presence of stent in coronary artery TIA (transient ischemic attack) Urinary retention PAST SURGICAL HISTORY Procedure Laterality Date COLSC FLX W/RMVL OF TUMOR POLYP LESION SNARE TQ 09/01/05 CORONARY ARTERY BYP W/VEIN AND ARTERY GRAFT 3 VEIN 2010 CABG, three grafts HEMORRHOIDECTOMY PAST SURGICAL HISTORY OF 1967 excision of chest lump PAST SURGICAL HISTORY OF 12/03/1995 Minimally invasive incision; aortic valve replacement with a PAST SURGICAL HISTORY OF 04/23/2018 TAVR FAMILY HISTORY Problem Relation Age of Onset Cancer Father Colon Cancer Father from cancer other (Myocardial infarction) Mother 70 other (Myocardial infarction) Sister 70 CABG other (Myocardial infarction) Brother 62 CABG age 55, coronary stents other (Myocardial infarction) Maternal Grandmother 92 other (Brain aneurysm) Paternal Grandmother 70 other (CABG) Brother other (coronary stents) Brother other (coronary stents) Brother carotid artery disease Social History Tobacco Use Smoking status: Never Smokeless tobacco: Never Substance Use Topics Alcohol use: Yes Comment: occ Drug use: No ALLERGIES Allergen Reactions Ragweed Pollen Itching, Other: See Comments CURRENT MEDICATIONS evolocumab (REPATHA PUSHTRONEX) 420 mg/3.5 mL wearable injectorInject 3.5 mL subcutaneously once every month.Disp: 3 EachRfl: 3 clopidogrel (PLAVIX) 75 mg tabletTake 1 tablet by mouth once daily.Disp: 90 tabletRfl: 3 atorvastatin (LIPITOR) 80 mg tabletTake 1 tablet by mouth daily at bedtime.Disp: 90 tabletRfl: 3 amLODIPine (NORVASC) 2.5 mg tabletTake 1 tablet by mouth once daily.Disp: 90 tabletRfl: 3 Ipratropium [place] (ATROVENT) 21 mcg (0.03 %) nasal sprayDisp: Rfl: Amoxicillin 500 mg tabletTake 4 tablets by mouth as needed. Prior to dental proceduresDisp: Rfl: acetaminophen (TYLENOL) 325 mg tablet2 tablets by ORAL/FEEDING TUBE route every 4 hours as needed for pain.Disp: 50 tabletRfl: 0 cetirizine (ZYRTEC) 10 mg tabletTake 10 mg by mouth as needed.Disp: Rfl: albuterol HFA (VENTOLIN HFA) 90 mcg/actuation inhalerInhale 2 Puffs as instructed every 4 hours as needed for Wheezing/Shortness of Breath.Disp: 1 InhalerRfl: 0 Multivitamin capsuleTake 1 capsule by mouth once daily. Disp: Rfl: REVIEW OF SYSTEMS: GENERAL: Negative for: Weight loss or gain, Fever or Chills, Weakness and Sleep difficulties. HEENT: Negative for: Headache, Impaired Vision, Glasses, Hearing Impairment, Ringing in Ears, Nosebleeds, Poor dental care, Bleeding Gums, Dentures NECK: Negative for: Swelling, Pain, Stiffness RESPIRATORY: Negative for: Cough, Blood in Sputum, Shortness of breath, Wheezing, Apnea GASTROINTESTINAL: Negative for: Trouble swallowing, Heartburn, Change in bowel habits, Blood in stool, Dark black stools MUSCULOSKELETAL: Negative for: Muscle or joint pain, Stiffness , Joint swelling NEUROLOGIC/PSYCHIATRIC: Negative for: Weakness, Paralysis, (more content not included)...[facility]06-03-2024 Telephone encounter Note* Telephone Encounter - Erick Jones - 07/23/2023 12:49 PM EDT Call from pharmacy requesting refill. Requested Prescriptions Pending Prescriptions Disp Refills amLODIPine (NORVASC) 2.5 mg tablet 90 tablet 3 Sig: Take 1 tablet by mouth once daily. Patient last seen 05/05/22; next appt 08/10/23 Erick Jones [facility]06-03-2024 Miscellaneous Notes* Telephone Encounter - Erick Jones - 07/23/2023 12:49 PM EDT Call from pharmacy requesting refill. Requested Prescriptions Pending Prescriptions Disp Refills amLODIPine (NORVASC) 2.5 mg tablet 90 tablet 3 Sig: Take 1 tablet by mouth once daily. Patient last seen 05/05/22; next appt 08/10/23 Erick Jones documented in this encounterPaulding [facility] Hospital05-06-2024 Telephone encounter Note * Telephone Encounter - Erick Jones - 06/25/2023 4:12 PM EDT Call from patient requesting refill. Requested Prescriptions Pending Prescriptions Disp Refills atorvastatin (LIPITOR) 80 mg tablet 90 tablet 3 Sig: Take 1 tablet by mouth daily at bedtime. Patient last seen 05/05/22 Erickcallie Joens [facility]05-06-2024 Miscellaneous Notes* Telephone Encounter - Erick Jones - 06/25/2023 4:12 PM EDT Call from patient requesting refill. Requested Prescriptions Pending Prescriptions Disp Refills atorvastatin (LIPITOR) 80 mg tablet 90 tablet 3 Sig: Take 1 tablet by mouth daily at bedtime. Patient last seen 05/05/22 Erickcallie Jones documented in this encounterPaulding County Hospital05-01-2024 Telephone encounter Note * Telephone Encounter - Erick Jones - 06/20/2023 8:46 AM EDT Pt called to schedule annual appt with Dr. Hastings. Emailed desk F14 for 08/09 at 8:45. Pt will call CCD[facility]e Godoy to see if he can schedule echo [facility]05-01-2024 Miscellaneous Notes* Telephone Encounter - Erick Jones - 06/20/2023 8:46 AM EDT Pt called to schedule annual appt with Dr. Hastings. Emailed desk F14 for 08/09 at 8:45. Pt will call [facility] to see if he can schedule echo documented in this encounterPaulding County Hospital11-17-2023 Procedure [facility]11-17-2023 Procedure [facility]11-15-2023 Miscellaneous Notes* Telephone Encounter - Erick Jones - 01/03/2023 12:[address] Hastings: I would start baby aspirin 5 days earlier to cover for the absence of plavix, then revert back to his pre-existing regimen post-colonoscopy Provided instructions. Office requested OPD note, Echo and EKG with tracings. Marline @ * Telephone Encounter - Erick Jones - 01/02/2023 10:42 AM EST Pt called to obtain clearance for colonoscopy scheduled on 01/05. Asking if he can hold plavix 48 hours prior Pt can be reached at [phone] documented in this encounterPaulding County Hospital10-26-2023 Miscellaneous Notes* Telephone Encounter - Bc Maradiaga APRN.CNP - 12/14/2022 1:03 PM EDT Prior authorization completed, awaiting final determination. Bc Maradiaga APRN.CNP * Telephone Encounter - Erick Jones - 12/12/2022 5:36 PM EDT Images from the original note were not included. PA from Cover My Meds form saved to scanned documents: Rec'd faxed PA from [facility]: documented in this encounterPaulding County Hospital09-29-2023 Miscellaneous Notes* Telephone Encounter - Bc Maradiaga APRN.CNP - 11/17/2022 1:56 PM EDT Prior authorization is already approved through 02/18/2023. Bc Maradiaga APRN.CNP * Telephone Encounter - Erick Jones - 11/17/2022 8:15 AM EDT Images from the original note were not included. Prior auth for repatha documented in this encounterPaulding County Hospital08-24-2023 Miscellaneous Notes* Telephone Encounter - Bc Maradiaga APRN.CNP - 10/12/2022 2:44 PM EDT Prior authorization completed. Awaiting final determination. Bc Maradiaga APRN.CNP * Telephone Encounter - Erick Jones - 10/12/2022 8:57 AM EDT Images from the original note were not included. Rec'd faxed prior authorization for Repatha. Copy saved to scanned documents. documented in this encounterPaulding County Hospital06-02-2023 Miscellaneous Notes* Telephone Encounter - Jackbartolo Lopezata - 07/21/2022 2:18 PM EDT Call from patient requesting refill. Requested Prescriptions Pending Prescriptions Disp Refills clopidogrel (PLAVIX) 75 mg tablet 90 tablet 3 Sig: Take 1 tablet by mouth once daily. amLODIPine (NORVASC) 2.5 mg tablet 90 tablet 3 Sig: Take 1 tablet by mouth once daily. Patient last seen 05/05/22 Farhatkourtney LopezOliva documented in this encounterPaulding County Hospital03-17-2023 Instructions* Patient Instructions* Kurtis Hastings MD - 05/05/2022 12:49 PM EDT Stop Brilinta Take 300 mg plavix as first dose, then 75 mg/d Then stop aspirin after the first week of plavix Stop metoprolol Keep the weight down Annual echocardiogram (locally) followed by phone visits documented in this encounterPaulding County Hospital03-17-2023 History of Present illness Narrative* Kurtis Hastings MD - 05/05/2022 12:38 PM EDT Images from the original note were not included. He is [facility] [place] [facility] Department of Cardiovascular Medicine SECTION OF INTERVENTIONAL CARDIOLOGY OUTPATIENT VISIT DATE May 05, 2022 OUTPATIENT VISIT TYPE ESTABLISHED PRIMARY CARE PHYSICIAN: Kelin Hsu MD ([facility]) [address] [place] [address] [place], [place] [id number] REFERRING PHYSICIAN: No referring provider defined for this encounter. CHIEF COMPLAINT: 01/26/2021; 3rd redo sternotomy, homograft removal, AVR/Root replacement (Konect 25), CABGx3 (Lt. 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 Wilcox continues to do well without any symptoms. Been on aspirin and Brilinta all this time in addition to his high intensity statin therapy and Repatha. Echocardiography today shows LVEF of 57%. Is trace to 1+ MR, trace TR. The Konect aortic bioprosthetic valve is well-seated with no PVL. The peak/mean transaortic gradients are 8/3 mmHg respectively with a DI of 0.62. ECG shows sinus rhythm with first-degree AV block. PAST CARDIAC HISTORY: See HPI PAST MEDICAL HISTORY Diagnosis Date Aortic valve disorders Aortic valve disorders CAD (coronary artery disease) Hx of CABG Hyperlipidemia Presence of stent in coronary artery TIA (transient ischemic attack) Urinary retention PAST SURGICAL HISTORY Procedure Laterality Date COLSC FLX W/RMVL OF TUMOR POLYP LESION SNARE TQ 09/01/05 CORONARY ARTERY BYP W/VEIN & ARTERY GRAFT 3 VEIN 2010 CABG, three grafts HEMORRHOIDECTOMY PAST SURGICAL HISTORY OF 1967 excision of chest lump PAST SURGICAL HISTORY OF 12/03/1995 Minimally invasive incision; aortic valve replacement with a PAST SURGICAL HISTORY OF 04/23/2018 TAVR SOCIAL HISTORY Social History Tobacco Use Smoking status: Never Smokeless tobacco: Never Substance Use Topics Alcohol use: Yes Comment: occ Drug use: No FAMILY HISTORY Problem Relation Age of Onset Cancer Father Colon Cancer Father from cancer other (Myocardial infarction) Mother 70 other (Myocardial infarction) Sister 70 CABG other (Myocardial infarction) Brother 62 CABG age 55, coronary stents other (Myocardial infarction) Maternal Grandmother 92 other (Brain aneurysm) Paternal Grandmother 70 other (CABG) Brother other (coronary stents) Brother other (coronary stents) Brother carotid artery disease ALLERGIES: ALLERGIES Allergen Reactions Ragweed Pollen Itching, Other: See Comments MEDICATIONS: Current Outpatient Medications Medication Sig evolocumab (REPATHA PUSHTRONEX) 420 mg/3.5 mL Inject 3.5 mL subcutaneously once every month. amLODIPine (NORVASC) 2.5 mg tablet Take 1 tablet by mouth once daily. albuterol HFA (VENTOLIN HFA) 90 mcg/actuation inhaler Inhale 2 Puffs as instructed every 4 hours asneeded for Wheezing/Shortness of Breath. Multivitamin capsule Take 1 capsule by mouth once daily. Ipratropium [place] (ATROVENT) 21 mcg (0.03 %) nasal spray atorvastatin (LIPITOR) 80 mg tablet Take 1 tablet by mouth daily at bedtime. clopidogrel (PLAVIX) 75 mg tablet Take 1 tablet by mouth once daily. Amoxicillin 500 mg tablet Take 4 tablets by mouth as needed. Prior to dental procedures acetaminophen (TYLENOL) 325 mg tablet 2 tablets by ORAL/FEEDING TUBE route every 4 hours as needed for pain. cetirizine (ZYRTEC) 10 mg tablet Take 10 mg by mouth as needed. Current Facility-Administered Medications Medication Dose Route Frequency perflutren lipid microspheres 1.3 mL in NaCl (PF) 0.9% 10 mL injection (DEFINITY) INTRAVENOUS DIRECTED PRN sodium chloride 0.9 % (flush) 10 mL (BD POSIFLUSH) 10 mL INTRAVENOUS DIRECTED PRN REVIEW OF SYSTEMS: GENERAL: negative for: fevers, chills, and change in weight HEENT: negative for: headaches, hearing loss, difficulty swallowing, visual changes, nose bleeds, dentures, own teeth SKIN: rashes, lesions, and ulcers RESPIRATORY: SEE HPI CARDIOVASCULAR: See HPI GASTROINTESTINAL: negative for: abdominal pain, nausea, vomiting, difficulty or painful swallowing,and melanotic stools GENITOURINARY: negative for: dysuria, frequency, nocturia, and male potency MUSCULOSKELETAL: negative for: joint pain, joint swelling, muscle pain or myalgias, and pain with walking NEUROLOGIC: negative for: numbness, tingling, and sensation of pins and needles HEMATOLOGY: negative for: bruising easily, prolonged bleeding, anemia, and cancer ENDOCRINE: negative for: cold or heat intolerance, polyuria, polydipsia, goiter, diabetes, and thyroid disease PSYCH: negative for: sleep disturbance, mood disorders, and recent psychosocial stressors PHYSICAL EXAMINATION: BP 107/72 Pulse 59 Ht 5' 4 (1.63m) Wt 170 lb (77.1kg) SpO2 100% BMI 29.17 kg/(m^2). General: Well appearing, in no acute distress, speaking in complete sentences. Skin: No clubbing, no cyanosis. Head/Eyes: Extra ocular movements intact Mouth: Teeth in good repair. Neck: No jugular venous distention, no carotid bruits, carotids have a normal upstroke, no palpablethyromegaly. Lungs: Clear to auscultation and no rales Heart: Regular rhythm, PMI not displaced, S1, S2 normal, no S3, no S4, no heaves, no rub and no murmur. PV Pulses:Pulses intact Abdomen: Soft, nontender, bowel sounds normal, no palpable organomegaly, no bruits. Extremities: No peripheral edema . Grade 2/4 distal pulses bilaterally. Edema Scale: No Musculoskeletal: Normal gait and ambulation Neuro: Oriented to time, place and person CARDIOVASCULAR MEDICINE TESTING: Electrocardiogram: As described above Echocardiogram:As described Last ECHO Result Conclusion ECHO Collected: 05/05/2022 8:21 AM (Final result) Impression: CONCLUSIONS: - Technically difficult exam due to body habitus. - Exam indication: H/O AVR & CABG - The left ventricle is normal in size. Left ventricular systolic function is normal. EF = 57 5% (2D biplane) - The right ventricle is normal in size. Right ventricular systolic function is normal. 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 There is no aortic valve regurgitation. The peak gradient is 8 mmHg, the mean gradient is 3 mmHg and the dimensionless valve index is 0.62. Prior AV peak/mean gradients were 9/4 mmHg. - Exam was compared with the prior echocardiographic exam performed on 05/03/2021. Decrease in LV filling pressures since the last study. * * * Final * * * I have personally reviewed the Electrocardiogram and Echocardiogram. IMPRESSION: Doing well clinically and an excellent echocardiographic result today. PLAN AND RECOMMENDATIONS: We can stop Brilinta, load him up with Plavix and then stop the aspirin. He can also stop metoprolol. He can see us virtually next year after having an echocardiogram locally. Kurtis Hastings MD, PhD, FRACP Clinical Staff, Senior Bi Architect cutting and printing machine operator Director, [facility], [facility] Department of Cardiovascular Medicine Heart and Vascular [place] [facility] Desk [id number] [place] [address] Office This letter was dictated using a voice recognition program, please excuse any typos. CONTACT INFORMATION: documented in [facility]01[facility]30-2023 Miscellaneous Notes* Telephone Encounter - Bcjudy Maradiaga APRN.CNP - 03/20/2022 4:12 PM EST Spoke to insurance on 03/16 and received approval for medication. Patient's pharmacy was notified. Bc Maradiaga APRN.CNP * Telephone Encounter - Erick Jones - 03/18/2022 3:41 PM EST Images from the original note were not included. Rec'd expedited appeal letter from [facility] asking for add'l information - saved to scanned documents documented in this encounterPaul[facility]01-24-2023 Miscellaneous Notes* Telephone Encounter - Bc Maradiaga APRN.CNP - 03/14/2022 5:05 PM EST I called and filed another appeal. Call reference #[id number] Bc Maradiaga APRN.CNP * Telephone Encounter - Erick Jones - 03/10/2022 5:00 PM EST Pt called with the following: [employer] Appeal Number to call is [phone] He said this was the number [employer] gave him for the office to call for the appeal. documented in this encounterPaul[facility]01-16-2023 Miscellaneous Notes* Telephone Encounter - Bc Maradiaga APRN.CNP - 03/06/2022 2:05 PM EST Prior Authorization submitted. Reference number: [id number]. Bc Maradiaga APRN.CNP * Telephone Encounter - Erick Jones - 03/02/2022 6:14 PM EST Images from the original note were not included. Rec'd prior authorization form from patient: documented in this encounterPaul[facility]01-11-2023 Miscellaneous Notes* Telephone Encounter - Erick Jones - 03/01/2022 4:23 PM EST Pt called to inform office he will send forms to be filled out for his new insurance for procedures. documented in this [facility]Paul[facility]12-27-2022 Miscellaneous Notes* Telephone Encounter - Erick Jones - 02/14/2022 2:50 PM EST Call from patient requesting refill. Requested Prescriptions Pending Prescriptions Disp Refills BRILINTA 90 mg tablet 180 tablet 3 Sig: Take 1 tablet by mouth twice daily. Patient last seen 05/03/21 Erick Jones documented in this encounterPaul[facility]06-08-2022 Miscellaneous Notes* Telephone Encounter - Erick Jones - 07/27/2021 10:23 AM EDT Call from patient requesting refill. Pending Prescriptions Disp Refills AMLODIPINE 2.5 MG TABLET 90 tablet 3 Sig: Take 1 tablet by mouth once daily. TRAVIS: No METOPROLOL SUCCINATE ER 25 MG TABLET,EXTENDED RELEASE 24 HR 90 tablet 3 Sig: Take 1 tablet by mouth once daily. TRAVIS: No Patient last seen 05/03/21 Erick Jones documented in this [facility]12-08-2021 Evaluation note* Diagnosis Onset Date Resolution Status URI (upper respiratory infection) acute Family history of colon cancer acute Personal history of colonic polyps acute H/O aortic valve replacement January 26, 2021 resolved [facility] Work Phone: 1(182) 331-737612-08-2021 History of Past illness Narrative* Problem Noted Date Resolved Date On mechanically assisted ventilation 01/26/2021 01/28/2021 Overview: History: Postop Grade II Assessment: Arrived intubated on mechanical ventilation. Plan: Wean vent settings, trend ABG then WTE when appropriate. Coagulopathy 01/26/2021 01/27/2021 Overview: History: Postop Redo sternotomy Assessment: Received 4 FFP, 4 PLT, 3 Cryo intra-op. Plan: Repeat coags and replete factors as needed. Monitor CT output Acute blood loss anemia 01/26/2021 01/29/20 Overview: History: Postop Assessment: Received 4 PRBCs intra-op Plan: Continue to monitor H/H and transfuse prn. Postoperative hypotension 01/26/20212020 Overview: History: Postop hypotension Assessment: MAPs 60's-70s on levophed infusion Plan: Wean levophed as tolerated for goal MAPs 65-75 documented as of this encounter (statuses as of 07/27/2021) [facility]12[facility] History of Past illness Narrative* Problem Noted Date Resolved Date On mechanically assisted ventilation 01/26/2021 01/28/2021 Overview: History: Postop Grade II Assessment: Arrived intubated on mechanical ventilation. Plan: Wean vent settings, trend ABG then WTE when appropriate. Coagulopathy 01/26/2021 01/27/2021 Overview: History: Postop Redo sternotomy Assessment: Received 4 FFP, 4 PLT, 3 Cryo intra-op. Plan: Repeat coags and replete factors as needed. Monitor CT output Acute blood loss anemia 01/26/2021 01/29/20 Overview: History: Postop Assessment: Received 4 PRBCs intra-op Plan: Continue to monitor H/H and transfuse prn. Postoperative hypotension 01/26/20212020 Overview: History: Postop hypotension Assessment: MAPs 60's-70s on levophed infusion Plan: Wean levophed as tolerated for goal MAPs 65-75 documented as of this encounter (statuses as of 02/21/2022) [facility] History of Past illness Narrative* Problem Noted Date Resolved Date On mechanically assisted ventilation 01/26/2021 01/28/2021 Overview: History: Postop Grade II Assessment: Arrived intubated on mechanical ventilation. Plan: Wean vent settings, trend ABG then WTE when appropriate. Coagulopathy 01/26/2021 01/27/2021 Overview: History: Postop Redo sternotomy Assessment: Received 4 FFP, 4 PLT, 3 Cryo intra-op. Plan: Repeat coags and replete factors as needed. Monitor CT output Acute blood loss anemia 01/26/2021 01/29/20 21 Overview: History: Postop Assessment: Received 4 PRBCs intra-op Plan: Continue to monitor H/H and transfuse prn. Postoperative hypotension 01/26/20212020 Overview: History: Postop hypotension Assessment: MAPs 60's-70s on levophed infusion Plan: Wean levophed as tolerated for goal MAPs 65-75 documented as of this encounter (statuses as of 03/01/2022) [facility] History of Past illness Narrative* Problem Noted Date Resolved Date On mechanically assisted ventilation 01/26/2021 01/28/2021 Overview: History: Postop Grade II Assessment: Arrived intubated on mechanical ventilation. Plan: Wean vent settings, trend ABG then WTE when appropriate. Coagulopathy 01/26/2021 01/27/2021 Overview: History: Postop Redo sternotomy Assessment: Received 4 FFP, 4 PLT, 3 Cryo intra-op. Plan: Repeat coags and replete factors as needed. Monitor CT output Acute blood loss anemia 01/26/2021 01/29/20 21 Overview: History: Postop Assessment: Received 4 PRBCs intra-op Plan: Continue to monitor H/H and transfuse prn. Postoperative hypotension 01/26/20212020 Overview: History: Postop hypotension Assessment: MAPs 60's-70s on levophed infusion Plan: Wean levophed as tolerated for goal MAPs 65-75 documented as of this encounter (statuses as of 03/06/2022) [facility] History of Past illness Narrative* Problem Noted Date Resolved Date On mechanically assisted ventilation 01/26/2021 01/28/2021 Overview: History: Postop Grade II Assessment: Arrived intubated on mechanical ventilation. Plan: Wean vent settings, trend ABG then WTE when appropriate. Coagulopathy 01/26/2021 01/27/2021 Overview: History: Postop Redo sternotomy Assessment: Received 4 FFP, 4 PLT, 3 Cryo intra-op. Plan: Repeat coags and replete factors as needed. Monitor CT output Acute blood loss anemia 01/26/2021 01/29/20 Overview: History: Postop Assessment: Received 4 PRBCs intra-op Plan: Continue to monitor H/H and transfuse prn. Postoperative hypotension 01/26/20212020 Overview: History: Postop hypotension Assessment: MAPs 60's-70s on levophed infusion Plan: Wean levophed as tolerated for goal MAPs 65-75 documented as of this encounter (statuses as of 03/09/2022) [facility] of Past illness Narrative* Problem Noted Date Resolved Date On mechanically assisted ventilation 01/26/2021 01/28/2021 Overview: History: Postop Grade II Assessment: Arrived intubated on mechanical ventilation. Plan: Wean vent settings, trend ABG then WTE when appropriate. Coagulopathy 01/26/2021 01/27/2021 Overview: History: Postop Redo sternotomy Assessment: Received 4 FFP, 4 PLT, 3 Cryo intra-op. Plan: Repeat coags and replete factors as needed. Monitor CT output Acute blood loss anemia 01/26/2021 01/29/20 Overview: History: Postop Assessment: Received 4 PRBCs intra-op Plan: Continue to monitor H/H and transfuse prn. Postoperative hypotension 01/26/20212020 Overview: History: Postop hypotension Assessment: MAPs 60's-70s on levophed infusion Plan: Wean levophed as tolerated for goal MAPs 65-75 documented as of this encounter (statuses as of 03/15/2022) [facility] of Past illness Narrative* Problem Noted Date Resolved Date On mechanically assisted ventilation 01/26/2021 01/28/2021 Overview: History: Postop Grade II Assessment: Arrived intubated on mechanical ventilation. Plan: Wean vent settings, trend ABG then WTE when appropriate. Coagulopathy 01/26/2021 01/27/2021 Overview: History: Postop Redo sternotomy Assessment: Received 4 FFP, 4 PLT, 3 Cryo intra-op. Plan: Repeat coags and replete factors as needed. Monitor CT output Acute blood loss anemia 01/26/2021 01/29/20 Overview: History: Postop Assessment: Received 4 PRBCs intra-op Plan: Continue to monitor H/H and transfuse prn. Postoperative hypotension 01/26/20212020 Overview: History: Postop hypotension Assessment: MAPs 60's-70s on levophed infusion Plan: Wean levophed as tolerated for goal MAPs 65-75 documented as of this encounter (statuses as of 03/21/2022) [facility] of Past illness Narrative* Problem Noted Date Resolved Date On mechanically assisted ventilation 01/26/2021 01/28/2021 Overview: History: Postop Grade II Assessment: Arrived intubated on mechanical ventilation. Plan: Wean vent settings, trend ABG then WTE when appropriate. Coagulopathy 01/26/2021 01/27/2021 Overview: History: Postop Redo sternotomy Assessment: Received 4 FFP, 4 PLT, 3 Cryo intra-op. Plan: Repeat coags and replete factors as needed. Monitor CT output Acute blood loss anemia 01/26/2021 01/29/20 Overview: History: Postop Assessment: Received 4 PRBCs intra-op Plan: Continue to monitor H/H and transfuse prn. Postoperative hypotension 01/26/20212020 Overview: History: Postop hypotension Assessment: MAPs 60's-70s on levophed infusion Plan: Wean levophed as tolerated for goal MAPs 65-75 documented as of this encounter (statuses as of 03/30/2022) [facility] of Past illness Narrative* Problem Noted Date Resolved Date On mechanically assisted ventilation 01/26/2021 01/28/2021 Overview: History: Postop Grade II Assessment: Arrived intubated on mechanical ventilation. Plan: Wean vent settings, trend ABG then WTE when appropriate. Coagulopathy 01/26/2021 01/27/2021 Overview: History: Postop Redo sternotomy Assessment: Received 4 FFP, 4 PLT, 3 Cryo intra-op. Plan: Repeat coags and replete factors as needed. Monitor CT output Acute blood loss anemia 01/26/2021 01/29/20 Overview: History: Postop Assessment: Received 4 PRBCs intra-op Plan: Continue to monitor H/H and transfuse prn. Postoperative hypotension 01/26/20212020 Overview: History: Postop hypotension Assessment: MAPs 60's-70s on levophed infusion Plan: Wean levophed as tolerated for goal MAPs 65-75 documented as of this encounter (statuses as of 05/05/2022) [facility] of Past illness Narrative* Problem Noted Date Resolved Date On mechanically assisted ventilation 01/26/2021 01/28/2021 Overview: History: Postop Grade II Assessment: Arrived intubated on mechanical ventilation. Plan: Wean vent settings, trend ABG then WTE when appropriate. Coagulopathy 01/26/2021 01/27/2021 Overview: History: Postop Redo sternotomy Assessment: Received 4 FFP, 4 PLT, 3 Cryo intra-op. Plan: Repeat coags and replete factors as needed. Monitor CT output Acute blood loss anemia 01/26/2021 01/29/20 Overview: History: Postop Assessment: Received 4 PRBCs intra-op Plan: Continue to monitor H/H and transfuse prn. Postoperative hypotension 01/26/20212020 Overview: History: Postop hypotension Assessment: MAPs 60's-70s on levophed infusion Plan: Wean levophed as tolerated for goal MAPs 65-75 documented as of this encounter (statuses as of 07/25/2022) [facility] of Past illness Narrative* Problem Noted Date Diagnosed Date Resolved Date On mechanically assisted ventilation 01/26/2021 01/28/2021 Overview: History: Postop Grade II Assessment: Arrived intubated on mechanical ventilation. Plan: Wean vent settings, trend ABG then WTE when appropriate. Coagulopathy 01/26/2021 01/27/2021 Overview: History: Postop Redo sternotomy Assessment: Received 4 FFP, 4 PLT, 3 Cryo intra-op. Plan: Repeat coags and replete factors as needed. Monitor CT output Acute blood loss anemia 01/26/202101/19 Overview: History: Postop Assessment: Received 4 PRBCs intra-op Plan: Continue to monitor H/H and transfuse prn. Postoperative hypotension 01/26/2021 Overview: History: Postop hypotension Assessment: MAPs 60's-70s on levophed infusion Plan: Wean levophed as tolerated for goal MAPs 65-75 documented as of this encounter (statuses as of 10/12/2022) [facility] History of Past illness Narrative* Problem Noted Date Diagnosed Date Resolved Date On mechanically assisted ventilation 01/26/2021 01/28/2021 Overview: History: Postop Grade II Assessment: Arrived intubated on mechanical ventilation. Plan: Wean vent settings, trend ABG then WTE when appropriate. Coagulopathy 01/26/2021 01/27/2021 Overview: History: Postop Redo sternotomy Assessment: Received 4 FFP, 4 PLT, 3 Cryo intra-op. Plan: Repeat coags and replete factors as needed. Monitor CT output Acute blood loss anemia 01/26/202101/19 Overview: History: Postop Assessment: Received 4 PRBCs intra-op Plan: Continue to monitor H/H and transfuse prn. Postoperative hypotension 01/26/2021 Overview: History: Postop hypotension Assessment: MAPs 60's-70s on levophed infusion Plan: Wean levophed as tolerated for goal MAPs 65-75 documented as of this encounter (statuses as of 11/18/2022) [facility] History of Past illness Narrative* Problem Noted Date Diagnosed Date Resolved Date On mechanically assisted ventilation 01/26/2021 01/28/2021 Overview: History: Postop Grade II Assessment: Arrived intubated on mechanical ventilation. Plan: Wean vent settings, trend ABG then WTE when appropriate. Coagulopathy 01/26/2021 01/27/2021 Overview: History: Postop Redo sternotomy Assessment: Received 4 FFP, 4 PLT, 3 Cryo intra-op. Plan: Repeat coags and replete factors as needed. Monitor CT output Acute blood loss anemia 01/26/202101/19 Overview: History: Postop Assessment: Received 4 PRBCs intra-op Plan: Continue to monitor H/H and transfuse prn. Postoperative hypotension 01/26/2021 Overview: History: Postop hypotension Assessment: MAPs 60's-70s on levophed infusion Plan: Wean levophed as tolerated for goal MAPs 65-75 documented as of this encounter (statuses as of 12/14/2022) [facility] History of Past illness Narrative* Problem Noted Date Diagnosed Date Resolved Date On mechanically assisted ventilation 01/26/2021 01/28/2021 Overview: History: Postop Grade II Assessment: Arrived intubated on mechanical ventilation. Plan: Wean vent settings, trend ABG then WTE when appropriate. Coagulopathy 01/26/2021 01/27/2021 Overview: History: Postop Redo sternotomy Assessment: Received 4 FFP, 4 PLT, 3 Cryo intra-op. Plan: Repeat coags and replete factors as needed. Monitor CT output Acute blood loss anemia 01/26/202101/19 Overview: History: Postop Assessment: Received 4 PRBCs intra-op Plan: Continue to monitor H/H and transfuse prn. 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 [facility] this encounter [facility]* Diagnosis S/P AVR- Primary Heart valve replaced by other means Hx of CABG Postsurgical aortocoronary bypass status Dyslipidemia Other and unspecified hyperlipidemia documented [facility] this encounter [facility]* Diagnosis 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 Mixed hyperlipidemia S/P CABG (coronary artery bypass graft) Postsurgical aortocoronary bypass status S/P AVR (aortic valve replacement) Heart valve replaced by other means 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) documented in this encounter [facility]* Diagnosis 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) Mixed hyperlipidemia S/P CABG (coronary artery bypass graft) Postsurgical aortocoronary bypass status S/P AVR (aortic valve replacement) Heart valve replaced by other means 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) documented [facility] this encounter [facility]* Diagnosis S/P drug eluting coronary stent placement- Primary Postsurgical percutaneous transluminal coronary angioplasty status H/O coronary artery bypass surgery Postsurgical aortocoronary bypass status Mixed hyperlipidemia 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) Unstable angina (HCC) Intermediate coronary syndrome documented [facility] this encounter [facility]* Diagnosis Coronary artery disease involving rosebud coronary artery of rosebud heart without angina pectoris- Primary S/P CABG (coronary artery bypass graft) Postsurgical aortocoronary bypass status S/P drug eluting coronary stent placement Postsurgical percutaneous transluminal coronary angioplasty status S/P TAVR (transcatheter aortic valve replacement) Heart valve replaced by other means Mixed hyperlipidemia First degree AV block First degree atrioventricular block [facility] Author Ge Ag [facility] January 05, 2023 10:12am Note Date/Time January 05, 2023 10:12am [facility] Medical Records Department [address] [place] [address] History & Physical Exam 01/05/23 1012 MR#: [id number] Acct: [id number] Name: CHLOE WILCOX Rep #:[id number] : 1950 72 From: Ge Ag MD PCP: Rae Kate, DO Status:REG S DC Location: [place] [address] History and Physical Date of Admission: 01/05/23 Visit Reasons: COLONOSCOPY - FAMILY HX CANCER Chief Complaint: colonoscopy-family hx of cancer Is patient in pain?: No Allergies carrot Allergy (Verified 12/04/22 08:03) ItchingFood Allergies: Uncoded Allergy (Verified 12/04/22 08:03) Hivesragweed pollen Allergy (Verified 12/04/22 08:03) Other Medications cetirizine 10 mg tablet (Zyrtec) 5 mg PO QDAY PRN Allergies 02/07/17 [History Confirmed 12/04/22] multivitamin with folic acid 400 mcg tablet 1 tab PO DAILY 01/07/19 [History Confirmed 12/04/22] albuterol sulfate 90 mcg/actuation aerosol inhaler 1 dose inhalation DAILY 11/13/19 [History Confirmed 12/04/22] nitroglycerin 0.4 mg sublingual tablet 0.4 mg sublingual Q5-15M PRN chest pain #25 tabs 02/25/20 [Rx Confirmed 11/12/22] amoxicillin 500 mg tablet 2,000 mg PO ONCE PRN 05/28/20 [History Confirmed 12/04/22] tamsulosin 0.4 mg capsule 0.4 mg PO QHS PRN prostate 05/28/20 [History Confirmed 11/12/22] amlodipine 2.5 mg tablet 2.5 mg PO DAILY 04/06/21 [History Confirmed 12/04/22] atorvastatin 40 mg tablet 40 mg PO QHS 04/06/21 [History Confirmed 12/04/22] evolocumab 420 mg/3.5 mL subcutaneous wearable injector (Repatha Pushtronex) 420mg subcut .montly 04/06/21 [History Confirmed 11/12/22] [facility] Medical History (Updated 12/04/22 @ 05:[address] Ge Ag MD) Arthritis Atherosclerosis of coronary artery bypass graft without angina pectoris Atherosclerotic heart disease of rosebud coronary artery without angina pectoris Atrial flutter with rapid ventricular response (01/28/21) CVA (cerebral vascular accident) (2010) DDD (degenerative disc disease), cervical Hemorrhoids Hyperlipidemia Nonrheumatic aortic (valve) stenosis with insufficiency Nonrheumatic mitral (valve) insufficiency Paroxysmal atrial fibrillation Personal history of colonic polyps Postoperative atrial fibrillation (01/28/21) Transient ischemic attack Surgical History (Updated 04/06/21 @ 10:55 by Eri Chacon) H/O aortic valve replacement (01/26/21) H/O coronary artery bypass surgery (01/26/21) History of coronary artery stent placement (01/19/20) History of left heart catheterization (08/30/20) Family History Brother CAD (coronary artery disease) 2nd brother CABGBrother CAD (coronary artery disease) 3rd brother PCI-StentsBrother CAD (coronary artery disease) 4 brother PCI-Stents and CABGBrother CAD (coronary artery disease) 6th brother PCI-StentsSister Hypertension CAD (coronary artery disease) CABG age 70Other Colon cancer Social History (Updated 05/28/20 @ 09:[address] Sameer Guzman MD) Smoking Status: Never smoker alcohol intake: current alcohol intake frequency: a few times a month substance use type: does not use HPI HPI HPI: 72-year-old gentleman. Most recently March 16, 2017 because of a personal history of colon polyps and a family history of colon cancer I performed a colonoscopy for him. Extensive pancolonic diverticulosis was identified. Because of a prosthetic aortic valve 2 g of ampicillin was given intravenously preprocedure. This was done with mild using 100 mg Demerol and 2.5 mg of Versed. Follow-up endoscopy at 5 years recommended. No new polyps were identified at that setting. In 2020 the patient had his third heart surgery. He had a third heart valve placed and he had going to bypass grafting x3. He runs walks routinely. He plays seniors softball. He remains physically active and denies any chest pain no shortness of breath no abdominal pain no bright red blood per rectum or melena. He is not on any aspirin but he is on clopidogrel therapy. No history of DVT. ROS General General: No weight change, appetite, fatigue, colon cancer, breast cancer or weakness HEENT HEENT: No difficulty swallowing, eye injury, eye surgery, swollen glands or hoarseness Endo Endocrine: No thyroid disease, diabetes mellitus, thyroid cancer, Hair loss, heat intolerance or cold intolerance Skin Skin: No rash or changing moles Musc Musculoskeletal: Yes back problems and arthritis; No rheumatoid arthritis, gout or joint pain Cardio Cardiovascular: Yes murmur, heart disease and heart stent; No pacemaker, atrial fibrillation, high blood pressure, heart attack, palpitations, shortness of breat with exertion or chest pain Psych Psychiatric: No depression, anxiety or hearing voices Resp Respiratory: No shortness of breath, No sleep apnea, No cough, No COPD, No asthma, No emphysema and No wheezing Gastro Gastrointestinal: No abdominal pain, No nausea or vomiting, No diarrhea, No constipation, No blood in stool, No acid reflux, Yes hemorrhoids, No ulcers, No gallbladder problem and No black,tarry stools Navi Hematologic: Yes blood thinners, No blood disorders, No bleeding, No anemia and No blood clots Neuro Neurologic: No system reviewed and no additional complaints, except as documented, No as per HPI, No abnormal gait, No abnormal hearing, No abnormal movements, No abnormal speech, No behavioral changes, No burning sensations, No confusion, No convulsions, No disequilibrium, No dizziness, No localized weakness, No frequent falls, No headache(s), No lack of coordination, No loss ofvision, No memory loss, No numbness, No other visual disturbances, No radicular pain, No restless legs, No sensory deficit, No syncope, No tingling, No tremor(s), No weakness and No other Assessment and Plan Assessment and Plan (1) H/O aortic valve replacement: Status: Resolved Comment: AVR 12/03/1995; TAVR 23 mm Hinds Sapin S3 valve 04/23/18; ReDo Biobentall (25mm Konect) 01/26/2021 (2) Family history of colon cancer: Status: Acute Plan: Family history of colon cancer in his father.'s father was either late 50s or early 60s. (3) Personal history of colonic polyps: Status: Acute Plan: I recommended the patient a colonoscopy with possible biopsy or polypectomy as indicated. We will provide ampicillin 2 g IV immediately prior to the procedure. Because of his third heart valve replacement aortic valve we will have monitored anesthesia care. We will have him hold his Plavix just 1 day prior. He has had an opportunity to ask and have questions answered. We will schedule procedure at his discretion. I appreciate the ongoing opportunity of assisting with the surgical care Copy: Dr Gianni Ag M.D., F.A.C.S. I have examined the patient and the H&P has been reviewed. There are no clinicalchanges since date of exam. Ge Ag M.D., F.A.C.S. 01/05/23 1012 <Electronically signed by Ge Ag MD> Cosigner Signature (if applicable): CC: Dr. Ge Ag MD; Rae Kate DO~ Signed [facility] Work Phone: Rezamy for referral (narrative)* Transition of Care (Routine) - Authorized Specialty Diagnoses / Procedures Referred By Todd martinez Referred To Contact [facility] [place] Procedures CARDIOVASCULAR MEDICINE OP FOLLOW UP APPT ORDER Guadalupe Leach APRN.RETINAL ANGIOGRAPHER [address] [place] [address] Phone: tel: fax: [facility] [place] [address] [place] [address] Referral ID Status Reason Start Date Expiration Date Visits Requested Visits Authorized [id number] Authorized PCP Requested Referral 04/23/2024 04/23/2025 1 1 [facility] for referral (narrative)No reason for referral information 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) Mixed hyperlipidemia S/P CABG (coronary artery bypass graft) S/P AVR (aortic valve replacement) Procedures ECHO ECHO TTHRC R-T 2D W/WOM-MODE COMPL SPEC&COLR Yoan Lomeli APRN.RETINAL ANGIOGRAPHER [address] [place] [address] Phone: tel: fax: [facility] [place] [address] [place] [address] Referral ID Status Reason Start Date Expiration Date V isits Requested Visits Authorized [id number] Closed Auto-Generate d Referral 04/01/2024 04/01/2025 1 1 [facility] Summary Purpose Family History Relationship Condition Age at Onset Recorded Date/T olivia Not Specified Malignant neoplasm of colon Unknown brother Coronary artery disease Unknown sister Hypertension Unknown Coronary artery disease Unknown Advance Directives Advance Directive Response Recorded Date/ Time Advance Directives Yes December 10:19am Living Will Yes April 12, 022 9:31am Power of Tire Molder Yes April 12, 2021 9:31am Documents on File Type Date Recorded Patient Waiter/Waitress Informal Expl anation Advance Directive(s) 01/06/2021 3:38 PM Advance Directive(s) 08/17/2020 11:24 AM Advance Directive(s) 04/23/2018 9:48 PM Advance Directive Response Recorded Date/ Time Name of Medical Power of Tire Molder January 03, 2023 11:53am Advance Directives Yes December 9:19am Living Will Yes January 03, 2 023 11:53am Power of Tire Molder Yes January 03, 2023 11:53am Documents on File Type Date Recorded Patient Waiter/Waitress Informal Expl anation Advance Directive(s) 04/09/2024 2:59 PM Documents on File Type Date Recorded Patient Waiter/Waitress Informal Expl anation Advance Directive(s) 04/09/2024 2:59 PM Advance Directive Response Recorded Date/ Time Advance Directives on File No April 28, 2024 8:22am Living Will Yes April 28, 2024 8:22am Do you have a Healthcare Power of Tire Molder? Yes April 28, 2024 8:22am Advance Directives Yes December 10:19am Chief Complaint and Reason for Visit Chief Complaint S/P CABG, S/P AVR INT LABS S/P CABG x3, AVR/ROOT REPLACEMENT S/P CABG x3, AVR/ROOT REPLACEMENT Chief Complaint S/P CABG, S/P AVR INT LABS S/P CABG x3, AVR/ROOT REPLACEMENT S/P CABG x3, AVR/ROOT REPLACEMENT S/P CABG x3, AVR/ROOT REPLACEMENT Chief Complaint S/P CABG, S/P AVR INT LABS S/P CABG x3, AVR/ROOT REPLACEMENT S/P CABG x3, AVR/ROOT REPLACEMENT S/P CABG x3, AVR/ROOT REPLACEMENT S/P CABG x3, AVR/ROOT REPLACEMENT Chief Complaint PROSTATE Chief Complaint SORE THROAT COLONOSCOPY - FAMILY HX CANCER Reason for Visit URI (upper respirato ry infection) Family history of colon cancer Personal history of colonic polyps H/O aortic valve replacement Chief Complaint Admit Date BOTH SHOULDERS February 08, 2024 2:57pm LEFT SHOULDER PAIN, FAILED PT March 012024 7:17am PCI with stent April 28, 2024 8:0 6am L RTC TEAR/RX W/PATIENT May 06, 2024 9:00am PCI with stent May 07, 2024 2:1 5pm Chief Complaint Admit Date BOTH SHOULDERS February 08, 2024 2:57pm LEFT SHOULDER PAIN, FAILED PT March 012024 7:17am PCI with stent April 28, 2024 8:0 6am PCI with stent May 19, 2024 2:1 5pm L RTC TEAR/RX W/PATIENT May 19, 2024 3:30pm Chief Complaint Admit Date BOTH SHOULDERS February 08, 2024 2:57pm LEFT SHOULDER PAIN, FAILED PT March 012024 7:17am PCI with stent April 28, 2024 8:0 6am PCI with stent May 19, 2024 2:1 5pm PCI with stent June 02, 2024 2:1 5pm L RTC TEAR/RX W/PATIENT June 02, 2024 3:30pm Chief Complaint Admit Date PCI with stent April 28, 2024 8:0 6am PCI with stent May 19, 2024 2:1 5pm L RTC TEAR/RX W/PATIENT June 02, 2024 3:30pm PCI with stent June 18, 2024 2:1 5pm PCI with stent July 18, 2024 2:15p m Additional Source Comments (unrecognized sect ion and content) No Status Records FoundNo Status Records FoundNo Status Records FoundNo Status Records Found INFORMATION SOURCE (unrecogn ized section and content) DATE CREATED [facility] DATE CREATED AUTHOR 'S ORGANIZ ATION 04/07/2024 [facility] DATE CREATED AUTHOR AUTHOR'S ORGANIZ ATION 07/16/2024 [facility] DATE CREATED AUTHOR AUTHOR'S ROMMEL HARTMANN 07/26/[address] [facility] Goals (unrecognized section and content) Goals may be documented in a n alternate sectionGoals may be documented in an alternate sectionGoals may be documented in an alternate sectionGoals may be documented in an alternate sectionGoals may be documented in an alternate sectionGoals may be documented in an alternate sectionGoals may be documented in an alternate sectionGoals may be documented in an alternate sectionGoals may be documented in an alternate sectionGoals may be documented in an alternate section Source Comments (unrecognize d section and content) In the event this informatio n is protected by the Federal Confidentiality of Alcohol and Drug Abuse Patient Records regulations: The Federal rules restrict any use of the information to criminally investigate or prosecute any alcohol or drug abuse patient.[facility] the event this information is protected by the Federal Confidentiality of Alcohol and Drug Abuse Patient Records regulations: The Federal rules restrict any use of the information to criminally investigate or prosecute any alcohol or drug abuse patient.[facility] the event this information is protected by the Federal Confidentiality of Alcohol and Drug Abuse Patient Records regulations: The Federal rules restrict any use of the information to criminally investigate or prosecute any alcohol or drug abuse patient.[facility] the event this information is protected by the Federal Confidentiality of Alcohol and Drug Abuse Patient Records regulations: The Federal rules restrict any use of the information to criminally investigate or prosecute any alcohol or drug abuse patient.[facility] the event this information is protected by the Federal Confidentiality of Alcohol and Drug Abuse Patient Records regulations: The Federal rules restrict any use of the information to criminally investigate or prosecute any alcohol or drug abuse patient.[facility] the event this information is protected by the Federal Confidentiality of Alcohol and Drug Abuse Patient Records regulations: The Federal rules restrict any use of the information to criminally investigate or prosecute any alcohol or drug abuse patient.[facility] the event this information is protected by the Federal Confidentiality of Alcohol and Drug Abuse Patient Records regulations: The Federal rules restrict any use of the information to criminally investigate or prosecute any alcohol or drug abuse patient.[facility] the event this information is protected by the Federal Confidentiality of Alcohol and Drug Abuse Patient Records regulations: The Federal rules restrict any use of the information to criminally investigate or prosecute any alcohol or drug abuse patient.[facility] the event this information is protected by the Federal Confidentiality of Alcohol and Drug Abuse Patient Records regulations: The Federal rules restrict any use of the information to criminally investigate or prosecute any alcohol or drug abuse patient.[facility] the event this information is protected by the Federal Confidentiality of Alcohol and Drug Abuse Patient Records regulations: The Federal rules restrict any use of the information to criminally investigate or prosecute any alcohol or drug abuse patient.[facility] the event this information is protected by the Federal Confidentiality of Alcohol and Drug Abuse Patient Records regulations: The Federal rules restrict any use of the information to criminally investigate or prosecute any alcohol or drug abuse patient.[facility] the event this information is protected by the Federal Confidentiality of Alcohol and Drug Abuse Patient Records regulations: The Federal rules restrict any use of the information to criminally investigate or prosecute any alcohol or drug abuse patient.[facility] the event this information is protected by the Federal Confidentiality of Alcohol and Drug Abuse Patient Records regulations: The Federal rules restrict any use of the information to criminally investigate or prosecute any alcohol or drug abuse patient.[facility] the event this information is protected by the Federal Confidentiality of Alcohol and Drug Abuse Patient Records regulations: The Federal rules restrict any use of the information to criminally investigate or prosecute any alcohol or drug abuse patient.[facility] the event this information is protected by the Federal Confidentiality of Alcohol and Drug Abuse Patient Records regulations: The Federal rules restrict any use of the information to criminally investigate or prosecute any alcohol or drug abuse patient.[facility] the event this information is protected by the Federal Confidentiality of Alcohol and Drug Abuse Patient Records regulations: The Federal rules restrict any use of the information to criminally investigate or prosecute any alcohol or drug abuse patient.[facility] the event this information is protected by the Federal Confidentiality of Alcohol and Drug Abuse Patient Records regulations: The Federal rules restrict any use of the information to criminally investigate or prosecute any alcohol or drug abuse patient.[facility]In the event this information is protected by the Federal Confidentiality of Alcohol and Drug Abuse Patient Records regulations: The Federal rules restrict any use of the information to criminally investigate or prosecute any alcohol or drug abuse patient.[facility] the event this information is protected by the Federal Confidentiality of Alcohol and Drug Abuse Patient Records regulations: The Federal rules restrict any use of the information to criminally investigate or prosecute any alcohol or drug abuse patient.[facility]In the event this information is protected by the Federal Confidentiality of Alcohol and Drug Abuse Patient Records regulations: The Federal rules restrict any use of the information to criminally investigate or prosecute any alcohol or drug abuse patient.[facility]In the event this information is protected by the Federal Confidentiality of Alcohol and Drug Abuse Patient Records regulations: The Federal rules restrict any use of the information to criminally investigate or prosecute any alcohol or drug abuse patient.[facility] the event this information is protected by the Federal Confidentiality of Alcohol and Drug Abuse Patient Records regulations: The Federal rules restrict any use of the information to criminally investigate or prosecute any alcohol or drug abuse patient.[facility] the event this information is protected by the Federal Confidentiality of Alcohol and Drug Abuse Patient Records regulations: The Federal rules restrict any use of the information to criminally investigate or prosecute any alcohol or drug abuse patient.[facility] the event this information is protected by the Federal Confidentiality of Alcohol and Drug Abuse Patient Records regulations: The Federal rules restrict any use of the information to criminally investigate or prosecute any alcohol or drug abuse patient.[facility]In the event this information is protected by the Federal Confidentiality of Alcohol and Drug Abuse Patient Records regulations: The Federal rules restrict any use of the information to criminally investigate or prosecute any alcohol or drug abuse patient.[facility]In the event this information is protected by the Federal Confidentiality of Alcohol and Drug Abuse Patient Records regulations: The Federal rules restrict any use of the information to criminally investigate or prosecute any alcohol or drug abuse patient.[facility]In the event this information is protected by the Federal Confidentiality of Alcohol and Drug Abuse Patient Records regulations: The Federal rules restrict any use of the information to criminally investigate or prosecute any alcohol or drug abuse patient.[facility]In the event this information is protected by the Federal Confidentiality of Alcohol and Drug Abuse Patient Records regulations: The Federal rules restrict any use of the information to criminally investigate or prosecute any alcohol or drug abuse patient.[facility]In the event this information is protected by the Federal Confidentiality of Alcohol and Drug Abuse Patient Records regulations: The Federal rules restrict any use of the information to criminally investigate or prosecute any alcohol or drug abuse patient.[facility]In the event this information is protected by the Federal Confidentiality of Alcohol and Drug Abuse Patient Records regulations: The Federal rules restrict any use of the information to criminally investigate or prosecute any alcohol or drug abuse patient.[facility] Reason for Visit (unrecogniz ed section and content) Reason Onset Date Comments Refill Request 07/27/2021 Reason Onset Date Comments Refill Request 02/14/2022 Reason Comments Patient Question Reason Comments Medication Authorization Repatha Reason Comments Patient Update Reason Comments Medication Authorization repatha Reason Comments Follow Up Reason Onset Date Comments Refill Request 07/21/2022 Reason Comments Medication Authorization Reason Comments Medication Question Reason Comments Anticoagulation Reason Comments Appointment Reason Onset Date Comments Refill Request 06/25/2023 Reason Onset Date Comments Refill Request 07/23/2023 Reason Comments Valvular Heart Disease Reason Onset Date Comments Refill Request 08/31/2023 Reason Onset Date Comments Refill Request 12/17/2023 Reason Comments Heart Problem Reason Comments Patient Education Reason Comments Follow Up Reason Comments Pt request Reason Onset Date Comments Refill Request 04/23/2024 Reason Onset Date Comments Refill Request 08/08/2024 Care Teams (unrecognized sec tion and content) Senior Merchandiser Relationship Specialty Start Date End Date Kelin Hsu [address] [place], [place] [id number] PCP - General Family Practice 01/06/21 Thomas, [place] S [address] [facility] [address] [place], [place] [address] Referring Cardiology 02/14/18 Kurtis Hastings MD [facility] [address] [place] [address] Primary Staff Physician Cardiology 05/07/18 Senior Merchandiser Relationship Specialty Start Date End Date Kelin Hsu [address] [place], [place] [id number] PCP - General Family Medicine 01/06/21 Thomas, Sameer S [address] [facility] [address] [place], [place] [address] Referring Cardiology 02/14/18 Kurtis Hastings MD [facility] [address] [place] [address] Primary Staff Physician Cardiology 05/07/18 Senior Merchandiser Relationship Specialty Start Date End Date Kelin Hsu [address] [place] [address] PCP - General Family Medicine 01/06/21 Thomas, [place] S [address] [place] [address] Referring Cardiology 02/14/18 Kurtis Hastings MD [facility] [address] [place] [address] Primary Staff Physician Cardiology 05/07/18 Senior Merchandiser Relationship Specialty Start Date End Date Kelin Hsu [address] [place] [address] PCP - General Family Medicine 01/06/21 Thomas, [place] S [address] [place] [address] Referring Cardiology 02/14/18 Kurtis Hastings MD [facility] [address] [place] [address] Primary Staff Physician Cardiology 05/07/18 Team Status: Active Member Role Status Dates Dr. Gianni Brooks MD Family Provider Active Dr. Gianni Vargas MD Primary Care Provider Active Team Status: Inactive Member Role Status Dates Dr. Gianni Vargas MD Primary Care Provider Active Dr. Levar Easley MD Attending Provider, Referr ing Provider Active Senior Merchandiser Relationship Specialty Start Date End Date Kelin Hsu [address] [place] [address] PCP - General Family Medicine 01/06/21 Sameer Guzman [address] [place] [address] Referring Cardiology 02/14/18 Kurtis Hastings MD [facility] [address] [place] [address] Primary Staff Physician Cardiology 05/07/18 Senior Merchandiser Relationship Specialty Start Date End Date Kelin Hsu [address] [facility] [address] [place] [address] PCP - General Family Medicine 01/06/21 Sameer Guzman [address] [place] [address] Referring Cardiology 02/14/18 Kurtis Hastings MD [facility] [address] [place] [address] Primary Staff Physician Cardiology 05/07/18 Senior Merchandiser Relationship Specialty Start Date End Date Kelin Hsu [address] [facility] [address] [place] [address] PCP - General Family Medicine 01/06/21 Sameer Guzman MD [address] [facility] [address] [place] [address] Referring Cardiology 02/14/18 Kurtis Hastings MD [facility] [address] [place] [address] Primary Staff Physician Cardiology 05/07/18 Team Status: Active Member Role Status Dates Dr. Gianni Brooks MD Family Provider Active Rae Kate DO Primary Care Provider Active Team Status: Inactive Member Role Status Dates Dr. Gianni Vargas MD Primary Care Provider, Referr ing Provider Active Dr. Ge Ag MD Attending Provider Active Team Status: Inactive Member Role Status Dates Dr. Gianni Vargas MD Primary Care Provider, Referr ing Provider Active Gianni Dan TICKET SCHEDULER, TICKET SCHEDULER-C Attending Provider Active Team Status: Active Member Role Status Dates Dr. Ge Ag MD Attending Provid er, Referring Provider, Other Provider Active Rae Kate DO Primary Care Provider Active Team Status: Inactive Member Role Status Dates Dr. Ge Ag MD Attending Provider, Referring Provider Active Rae Kate DO Primary Care Provider Active Senior Merchandiser Relationship Specialty Start Date End Date Kelin Hsu [address] [facility] [address] [place] [address] PCP - General Family Medicine 01/06/21 Sameer Guzman MD [address] [facility] [place] [address] Referring Cardiology 02/14/18 Kurtis Hastings MD [address] [address] Primary Staff Physician Cardiology 05/07/18 Senior Merchandiser Relationship Specialty Start Date End Date Kelin Hsu [address] [facility] [address] [place] [address] PCP - General Family Medicine 01/06/21 Sameer Guzman MD [address] [facility] [place] [address] Referring Cardiology 02/14/18 Kurtis Hastings MD [address] [address] Primary Staff Physician Cardiology 05/07/18 Senior Merchandiser Relationship Specialty Start Date End Date Kelin Hsu [address] [facility] [address] [place] [address] PCP - General Family Medicine 01/06/21 Sameer Guzman MD [address] [facility] [address] [place] [address] Referring Cardiology 02/14/18 Kurtis Hastings MD [facility] [address] [place] [address] Primary Staff Physician Cardiology 05/07/18 Senior Merchandiser Relationship Specialty Start Date End Date Kelin Hsu [address] [facility] [address] [address] [place] [address] PCP - General Family Medicine 01/06/21 Sameer Guzman MD [address] [facility] [address] [place] [address] Referring Cardiology 02/14/18 Kurtis Hastings MD [facility] [address] [place] [address] Primary Staff Physician Cardiology 05/07/18 Senior Merchandiser Relationship Specialty Start Date End Date Kelin Hsu [address] [place], [place] [address] PCP - General Family Medicine 01/06/21 Sameer Guzman MD [address] [facility] [address] [place] [address] Referring Cardiology 02/14/18 Kurtis Hastings MD [facility] [address] [place] [address] Primary Staff Physician Cardiology 05/07/18 Senior Merchandiser Relationship Specialty Start Date End Date Kelin Hsu [address] [facility] [address] [place], [place] [id number] PCP - General Family Medicine 01/06/21 Sameer Guzman MD [address] [facility] [place], [place] [id number] Referring Cardiology 02/14/18 Kurtis Hastings MD [place] [address] [place] [address] Primary Staff Physician Cardiology 05/07/18 Senior Merchandiser Relationship Specialty Start Date End Date Gatito Leon MD [address] [facility] [address] [place], [place] [id number] PCP - General Internal Medicine 04/02/24 Sameer Guzman MD [address] [facility] [place], [place] [phone] Referring Cardiology 02/14/18 Kurtis Hastings MD [facility] [address] [place] [address] Primary Staff Physician Cardiology 05/07/18 Senior Merchandiser Relationship Specialty Start Date End Date Gatito Leon MD [address] [facility] [address] [place], [place] [id number] PCP - General Internal Medicine 04/02/24 Sameer Guzman MD [address] [facility] [facility] [place] [address] Referring Cardiology 02/14/18 Kurtis Hastings MD [facility] [address] [place], [place] [id number] Primary Staff Physician Cardiology 05/07/18 Senior Merchandiser Relationship Specialty Start Date End Date Gatito Leon MD [address] [facility] [address] [place], [place] [address] PCP - General Internal Medicine 04/02/24 Sameer Guzman MD [address] [facility] [place] [address] Referring Cardiology 02/14/18 Kurtis Hastings MD [place] [place], [place] [id number] Primary Staff Physician Cardiology 05/07/18 Senior Merchandiser Relationship Specialty Start Date End Date Gatito Leon MD [address] [facility] [address] [place] [address] PCP - General Internal Medicine 04/02/24 Sameer Guzman MD [address] [facility] [place] [address] Referring Cardiology 02/14/18 Kurtis Hastings MD [facility] [address] [place], [place] [address] Primary Staff Physician Cardiology 05/07/18 Senior Merchandiser Relationship Specialty Start Date End Date Gatito Leon MD Avis Bossn [facility] [address] [place], [place] [address] PCP - General Internal Medicine 04/02/24 Sameer Guzman MD [address] [facility] [facility] [place], [place] [address] Referring Cardiology 02/14/18 Kurtis Hastings MD [facility] [address] [place] [address] Primary Staff Physician Cardiology 05/07/18 Team Status: Active Member Role Status Ludivina Leon MD Primary Care Provider Active Team Status: Inactive Member Role Status Ludivina Leon MD Primary Care Provider Active St art: February 08, 2024 End: February 08, 2024 Gatito Leon MD Attending Provider Active Start : February 08, 2024 End: February 08, 2024 Gatito Leon MD Referring Provider Active Start : February 08, 2024 End: February 08, 2024 Team Status: Inactive Member Role Status Ludivina Leon MD Primary Care Provider Active St art: March 01, 2024 End: March 01, 2024 Gatito Leon MD Attending Provider Active Start : March 01, 2024 End: March 01, 2024 Gatito Leon MD Referring Provider Active Start : March 01, 2024 End: March 01, 2024 Team Status: Inactive Member Role Status Ludivina Leon MD Primary Care Provider Active St art: April 28, 2024 End: April 28, 2024 DARLING HULL MD Attending Provider Active Start: April 28, 2024 End: April 28, 2024 DARLING HULL MD Referring Provider Active Start: April 28, 2024 End: April 28, 2024 Team Status: Active Member Role Status Ludivina Leon MD Primary Care Provider Active St art: May 06, 2024 Dr. Tino Ac MD Attending Provider Active St art: May 06, 2024 Dr. Tino Ac MD Referring Provider Active St art: May 06, 2024 Team Status: Active Member Role Status Ludivina Leon MD Primary Care Provider Active St art: May 07, 2024 DARLING HULL MD Attending Provider Active Start: May 07, 2024 DARLING HULL MD Referring Provider Active Start: May 07, 2024 Team Status: Inactive Member Role Status Ludivina Leon MD Primary Care Provider Active St art: May 19, 2024 End: May 19, 2024 DARLING HULL MD Attending Provider Active Start: May 19, 2024 End: May 19, 2024 DARLING HULL MD Referring Provider Active Start: May 19, 2024 End: May 19, 2024 Team Status: Active Member Role Status Ludivina Leon MD Primary Care Provider Active St art: May 19, 2024 Dr. Tino Ac MD Attending Provider Active St art: May 19, 2024 Dr. Tino Ac MD Referring Provider Active St art: May 19, 2024 Team Status: Active Member Role Status Ludivina Leon MD Primary Care Provider Active St art: June 02, 2024 DARLING HULL MD Attending Provider Active Start: June 02, 2024 DARLING HULL MD Referring Provider Active Start: June 02, 2024 Team Status: Inactive Member Role Status Ludivina Leon MD Primary Care Provider Active St art: June 02, 2024 End: June 02, 2024 Dr. Tino Ac MD Attending Provider Active St art: June 02, 2024 End: June 02, 2024 Dr. Tino Ac MD Referring Provider Active St art: June 02, 2024 End: June 02, 2024 Team Status: Inactive Member Role Status Ludivina Leon MD Primary Care Provider Active St art: June 18, 2024 End: June 18, 2024 DARLING HULL MD Attending Provider Active Start: June 18, 2024 End: June 18, 2024 DARLING HULL MD Referring Provider Active Start: June 18, 2024 End: June 18, 2024 Team Status: Inactive Member Role Status Ludivina Leon MD Primary Care Provider Active St art: July 18, 2024 End: July 19, 2024 DARLING HULL MD Attending Provider Active Start: July 18, 2024 End: July 19, 2024 DARLING HULL MD Referring Provider Active Start: July 18, 2024 End: July 19, 2024 Senior Merchandiser Relationship Specialty Start Date End Date Gatito Leon MD [address] [facility] [address] [place], [place] [id number] PCP - General Internal Medicine 04/02/24 Sameer Guzman MD [address] [facility] [address] [place] [address] Referring Cardiology 02/14/18 Kurtis Hastings MD [facility] [address] [place] [address] Primary Staff Physician Cardiology 05/07/18 FOR RECORDS PERTAINING TO PATIENTS WHO ARE OR HAVE BEEN ENROLLED IN A CHEMICAL DEPENDENCY/SUBSTANCEABUSE PROGRAM, SOME INFORMATION MAY BE OMITTED. This clinical summary was aggregated from multiple sources. Caution should be exercised in using it in the provision of clinical care. This summary normalizes information from multiple sources, and as a consequence, information in this document may materially change the coding, format and clinical context of patient data. In addition, data may be omitted in some cases. CLINICAL DECISIONS SHOULD BE BASED ON THE PRIMARY CLINICAL RECORDS. [employer] provides no warranty or guarantee of the accuracy or completeness of information in this document.
== END | disposition home or self-care (01) ==
LOC: US 10:48
PROVIDERS: PCP Family Medicine
DX: R19.00 Intra-abdominal and pelvic swelling, mass and lump, unspecified site (principal)
CPT/HCPCS: 76705

== ENCOUNTER → 2024-08-29 | Outpatient (CLI) | payer MEDICARE, OTHER, SELFPAY ==
[2024-06-25 08:38] VITALS: BMI 29.5
--- NOTE | 2024-08-29 10:21 | US_ITS ---
PROCEDURE: ABDOMEN LIMITED N/A REASON FOR EXAM: INTRA-ABDOMINAL AND PELVIC SWELLING, MASS AND LUMP Follow-up of hematoma along the left anterior abdominal wall adjacent to the umbilicus. COMPARISON: Prior study dated August 14, 2025. FINDINGS: Since prior study, there has been mild improvement in the previously seen edematous tissue/hematoma on the left side of the abdomen adjacent to the umbilicus. It presently measures 4.3 cm 4.4 cm x 1 cm. US/Abdomen Limited IMPRESSION: Since prior study, there has been slight decrease in size of the previously see n edematous tissue/hematoma on the left side of the umbilicus. [facility]
== END | disposition home or self-care (01) ==
PROVIDERS: PCP Family Medicine; Referring Provider Family Medicine; Visit Provider Family Medicine
DX: R19.00 Intra-abdominal and pelvic swelling, mass and lump, unspecified site (principal)
CPT/HCPCS: 76705

== ENCOUNTER → 2024-12-11 | Outpatient (CLI) | payer MEDICARE, OTHER, SELFPAY ==
[2024-06-25 08:38] VITALS: BMI 29.5
== END | disposition home or self-care (01) ==
LOC: MTRAD 13:55
PROVIDERS: PCP Family Medicine; Referring Provider Family Medicine; Visit Provider Family Medicine
DX: M25.521 Pain in right elbow (principal)
CPT/HCPCS: 73080

== ENCOUNTER 2025-01-13 08:30 | Outpatient (RCR) | payer MEDICARE, OTHER, SELFPAY ==
[2024-06-25 08:38] VITALS: BMI 29.5
--- NOTE | 2024-12-24 10:05 | HP.OTEVAL ---
Patient's Visit Information Visit Information Visit Information: CHLOE WILCOX is a 74 year old M, referred to Occupational Therapy by BAKARI Bartlett, with a diagnosis of right lateral epi. Date of Evaluation: 12/24/24 Occupational Therapist: SHENA Bear/Jeffery, CHT Subjective Subjective: This 74 year old male was seen for OT eval with dx of right lateral epi. pt states he has had this pain for about three months. Pt is active in playing softball. pt states lifting his laptop bag or his grandson increases pain pt does report tingling in his Little finger Pain right elbow: Current Pain Intensity: 0 Pain Intensity Range: 4 and 5 ROM Elbow: right -10/120 left 0/145 Forearm: right supination pain Wrist: right/left WNL Strength Roller Inspector: right 55# elbow straight 50# (pain 7/10) left 90# elbow straight 80# Lateral Pinch: right 12# left 14# Tripod Pinch: right 10# left 10# Sensation Thumb: right/left 2.83 interpretation normal sensation Index: right/left 2.83 interpretation normal sensation Middle: right/left 2.83 interpretation normal sensation Ring: right/left 2.83 interpretation normal sensation Little: right/left 2.83 interpretation normal sensation Quick DASH-Disab of Arm,Shoulder& Hand Quick DASH Score: 45.0000 Goals Goal:: pt will demo a increase in right textile clothing and footwear mechanic strength by 10# with no pain by d.c pt will demo a increase in right textile clothing and footwear mechanic strength with testing resistive textile clothing and footwear mechanic with elbow straight by 10# or greater by d.c Goal:: pt will demo a increase in right elbow ROM by 10* by d/c with no report of pain by d.c Goal:: pt will report a no pain of right elbow greater than 2/10 with use of right UE with daily task by d/c Goal:: Pt will demo understanding of joint protection and ergonomics when performing BADLs and IADLs by d/c Pt will demo understanding of adaptive Equipment use to decrease stress on joints to allow pt to perform BADSL and IADLS at TANIA level. Goal:: Pt will demo understanding of using supportive bracing 80% of workday/ADLS to decrease stress on tendon origin to allow healing and decrease pain by end of 2nd session. Rehabilitation General Assessment: pt demo with positive symptoms of right lateral epicondylitis. Pain limits pts IND with daily task. pt would benefit from skilled OT services 1-2x week for 6 weeks to return pt to his PLOF. Today therapist ed. pt on phase 1 lateral epin and gave handout on lift precautions and ed. pt on use of supportive brace. pt demo understanding and agrees to POC. Rehabilitation Potential: Good Visit Plan Frequency: 1-2x /Week Duration: 6 Weeks TEXT: Thank you for the opportunity to evaluate your patient. For Medicare and Medicare HMO plans, please review the plan of care and approve it. It will need to be FAXED BACK to us at [phone] for Medicare purposes. Please let me know if there are questions or concerns regarding this plan of care. Physician Signature: Date:
--- NOTE | 2025-01-13 11:00 | HP.OTDCSUM ---
Discharge Summary D/C Summary: It has been my pleasure to treat CHLOE WILCOX under orders from BAKARI Bartlett, for the diagnosis of right lateral epi for a total of 6 visit(s). Please see the following information for a summary of their discharge status. Overall Improvement % Improvement: 80 Goals Patient Goals: Decrease Pain, Use Hand/Wrist/Arm Normally Again, Be More Independent in ADLS and Resume Former Household Responsibilities (Cooking,Cleaning,Yard, etc.) Goal:: pt will demo a increase in right scale and skip car operator strength by 10# with no pain by d.c pt will demo a increase in right scale and skip car operator strength with testing resistive scale and skip car operator with elbow straight by 10# or greater by d.c ( progressing) Goal:: pt will demo a increase in right elbow ROM by 10* by d/c with no report of pain by d.c (goal met) Goal:: pt will report a no pain of right elbow greater than 2/10 with use of right UE with daily task by d/c (goal met) Goal:: Pt will demo understanding of joint protection and ergonomics when performing BADLs and IADLs by d/c (goal met) Pt will demo understanding of adaptive Equipment use to decrease stress on joints to allow pt to perform BADSL and IADLS at TANIA level. (goal met) Goal:: Pt will demo understanding of using supportive bracing 80% of workday/ADLS to decrease stress on tendon origin to allow healing and decrease pain by end of 2nd session. (goal met) Plan Plan: pt d/c with HEP D/C Information Discharge Comments: pt has progressed with his Lat. epi program- pain is min. and pt demo understanding of using supportive bracing with heavy lift tasks- pt will cont. with shoulder stabilization ex. and eccentric ex. pt agrees to D/C and reports he will cont. with his HEP. d/c sentence: If there are questions or concerns regarding this patient's occupational therapy, please fell free to call me at [phone]. Thank you for the referral of this patient. Sincerely, Courtney Jarvis, OTR/L, CHT
== END 2025-01-13 12:32 | disposition home or self-care (01) ==
LOC: OT 08:30
PROVIDERS: PCP Family Medicine
DX: M77.11 Lateral epicondylitis, right elbow (principal); M19.021 Primary osteoarthritis, right elbow; M25.521 Pain in right elbow
CPT/HCPCS: 97035; 97110; 97140; 97166; 97530